=== PATIENT | male | born 1945 | race Caucasian/White ===

== ENCOUNTER → 2016-06-05 | Outpatient (CLI) | payer MEDICARE ==
--- NOTE | 2016-06-05 11:56 | US ---
EXAMINATION TYPE: US kidneys/renal and bladder DATE OF EXAM: 06/05/2016 10:51 AM COMPARISON: CT abdomen September 02, 2013 CLINICAL HISTORY: C67.2 Bilateral bladder ca per order. EXAM MEASUREMENTS: Right Kidney: 9.3 x 4.5 x 5.0 cm Left Kidney: 10.2 x 4.9 x 4.8 cm Right Kidney: somewhat limited visualization due to excessive overlying peristalsing bowel, portions visualized wnl Left Kidney: irregular shaped anechoic structure with anterior hyperechoic foci Bladder: wnl Bilateral Jets seen: Yes There is no evidence for hydronephrosis at this point in time. No nephrolithiasis is seen bilaterall y. In the left kidney central aspect there is a irregular hypoechoic 2.0 x 1.5 cm area with central h yperechoic focus this could reflect prominent central fat but new solid lesion needs to be excluded g iven patient history. The urinary bladder is anechoic. Bilateral ureteral jets are seen. IMPRESSION: Abnormal area centrally left kidney in which solid mass or neoplasm cannot be excluded. Further pattie p with contrast-enhanced multi phase renal protocol CT or MRI is advised to better evaluate and dari cterize.
== END | disposition home or self-care (01) ==
LOC: RADUSWWP 10:19
PROVIDERS: ATTEND Urology
DX: R93.422 Abnormal radiologic findings on diagnostic imaging of left kidney (principal); C67.2 Malignant neoplasm of lateral wall of bladder; G43.909 Migraine, unspecified, not intractable, without status migrainosus; J44.9 Chronic obstructive pulmonary disease, unspecified; K21.0 Gastro-esophageal reflux disease with esophagitis; J30.2 Other seasonal allergic rhinitis
CPT/HCPCS: 36415; 76770; 84153

== ENCOUNTER 2016-07-06 17:25 | Inpatient (IN) | payer MEDICAID, MEDICARE ==
[2016-07-06] MEDS ORDERED: RX INFO: IV CONTRAST WAS GIVEN 1 EACH MISC MISCELLANE PRN (18:13)
[2016-07-06] MEDS ORDERED: MORPHINE SULFATE 4 MG/ML SYRINGE IV STA (18:13)
[2016-07-06] MEDS ORDERED: PANTOPRAZOLE 40 MG/10 ML VIAL IVP STA (18:13)
[2016-07-06] MEDS ORDERED: ONDANSETRON 4 MG/2 ML VIAL IVP STA (18:13)
[2016-07-06] MEDS ORDERED: SODIUM CHLORIDE 0.9% 1,000 ML IV STA ×2 (18:13)
[2016-07-06 18:37] LABS: Basophils # (A) 0.1 k/uL (0-0.2); Basophils % (A) 1 %; CH 33.9; CHCM 34.6; Eosinophils # (A) 0.1 k/uL (0-0.7); Eosinophils % (A) 1 %; HCT 51.6 % (39.0-53.0); HDW 2.49; HGB 17.5 gm/dL (13.0-17.5); Luc # (Auto) 0.26; Luc % (Auto) 3; Lymphocytes # (A) 0.8 k/uL (1.0-4.8); Lymphocytes % (A) 9 %; MCH 33.5 pg (25.0-35.0); MCHC 33.9 g/dL (31.0-37.0); MCV 98.6 fL (80.0-100.0); Mean Platelet Volume 7.2; Monocytes # (A) 0.8 k/uL (0-1.0); Monocytes % (A) 9 %; Neutrophils # (A) 6.7 k/uL (1.3-7.7); Neutrophils % (A) 77 %; RBC 5.24 m/uL (4.30-5.90); RDW 14.3 % (11.5-15.5); WBC 8.8 k/uL (3.8-10.6)
--- NOTE | 2016-07-06 18:37 | ED ---
General Adult HPI - General Source: patient, RN notes reviewed, old records reviewed Mode of arrival: wheelchair Limitations: no limitations <Yogesh Pereira - Last Filed: 07/06/16 18:35> <Arnold Reeves - Last Filed: 07/06/16 21:48> - General Chief complaint: Abdominal Pain Stated complaint: VOMITING BLOOD Time Seen by Provider: 07/06/16 18:12 - History of Present Illness Initial comments: This is a 71-year-old male the ER for evaluation. Patient is safe for evaluation of abdominal pain. Severe diffuse abdominal pain. Vomiting, patient states he did vomit blood. Denies similar history of same issue. Not on blood thinners. Patient has history of CVA and history of heart disease, has had an appendectomy. Patient denies any recent fevers, no diarrhea, no blood in stool (Yogesh Pereira) - Related Data Home Medications Medication Instructions Recorded Confirmed Fluticasone/Salmeterol [Advair 1 puff INHALATION RT-DAILY 07/10/13 07/06/16 250-50 Diskus] fentaNYL 50MCG/HR PATCH [Duragesic 50 mcg TRANSDERM Q48H 05/25/14 07/06/16 50MCG/HR] Albuterol Nebulized [Ventolin 2.5 mg INHALATION RT-Q4H PRN 09/15/15 07/06/16 Nebulized] Sucralfate [Carafate] 1 gm PO AC-BID 09/15/15 07/06/16 Famotidine [Pepcid] 20 mg PO DAILY PRN 07/06/16 07/06/16 Ondansetron [Zofran ODT] 8 mg PO Q8HR PRN 07/06/16 07/06/16 Allergies Allergy/AdvReac Type Severity Reaction Status Date / Time chocolate flavor Allergy Unknown Verified 07/06/16 18:51 Iodinated Contrast Media - Allergy Anaphylaxis Verified 07/06/16 18:51 Oral and [Iodinated Contrast Media - IV Dye] iodine Allergy Anaphylaxis Verified 07/06/16 18:51 Penicillins Allergy Anaphylaxis Verified 07/06/16 18:51 Sulfa (Sulfonamide Allergy Anaphylaxis Verified 07/06/16 18:51 Antibiotics) banana AdvReac HEADACHE Verified 07/06/16 18:51 tree nut [Nut] AdvReac HEADACHE Verified 07/06/16 18:51 yellow dye AdvReac HEADACHE Verified 07/06/16 18:51 Review of Systems ROS Other: All systems not noted in ROS Statement are negative. <Yogesh Pereira - Last Filed: 07/06/16 18:35> ROS Other: All systems not noted in ROS Statement are negative. <Arnold Reeves - Last Filed: 07/06/16 21:48> ROS Statement: Those systems with pertinent positive or pertinent negative responses have been documented in the HPI. Past Medical History Past Medical History: Cancer, COPD, GERD/Reflux, GI Bleed, Myocardial Infarction ([place]) Additional Past Medical History / Comment(s): Recent 08/03/15 EGD with bx and colonoscopy with bx for upper abdominal pain and hematemesis,/vomiting, frequent severe migraines, bladder CA with BCG treatment, testicular ca with orchiectomy and radiation, chronic back pain, hiatel hernia, gastritis, bells palsy. Last Myocardial Infarction Date:: 05/25/14 History of Any Multi-Drug Resistant Organisms: None Reported Past Surgical History: Adenoidectomy, Appendectomy, Heart Catheterization, Hernia Repair, Orthopedic Surgery, Tonsillectomy Additional Past Surgical History / Comment(s): 08/03/15 EGD with negative BX and colonoscopy with polypectomy and BX-neg, 05/27/14 normal cardiac cath, several back sx including laminectomy, spinous process removed T11 and T12/cage and arturo , bilateral arthroscopic knee surgeries with one done twice, left/Right thumb surgeries with one having titanium joint, L rotator cuff repair, several nasal polypectomies, RFA back, R/L inguinal hernia reairs. Past Anesthesia/Blood Transfusion Reactions: No Reported Reaction Past Psychological History: No Psychological Hx Reported Additional Psychological History / Comment(s): Pt resides with his spouse. He uses a back brace occasionally. He drives. Smoking Status: Former smoker Past Alcohol Use History: None Reported Additional Past Alcohol Use History / Comment(s): Pt started smoking in 1978 and quit in 2008. He uses an E-cigarette daily. Past Drug Use History: None Reported - Past Family History Father Family Medical History: Cancer Additional Family Medical History / Comment(s): Father of stomach ca at the age of 65 yrs. Mother Family Medical History: No Reported History Additional Family Medical History / Comment(s): Mother of "old age". She was 83 yrs old Brother(s) Family Medical History: Diabetes Mellitus Sister(s) Family Medical History: Diabetes Mellitus Additional Family Medical History / Comment(s): breast ca <Yogesh Pereira - Last Filed: 07/06/16 18:35> General Exam Limitations: no limitations General appearance: alert, in no apparent distress Head exam: Present: atraumatic, normocephalic, normal inspection Eye exam: Present: normal appearance, PERRL, EOMI. Absent: scleral icterus, conjunctival injection, periorbital swelling ENT exam: Present: normal exam, mucous membranes moist Neck exam: Present: normal inspection. Absent: tenderness, meningismus, lymphadenopathy Respiratory exam: Present: normal lung sounds bilaterally. Absent: respiratory distress, wheezes, rales, rhonchi, stridor Cardiovascular Exam: Present: regular rate, normal rhythm, normal heart sounds. Absent: systolic murmur, diastolic murmur, rubs, gallop, clicks GI/Abdominal exam: Present: soft, tenderness, guarding (Voluntary), normal bowel sounds. Absent: distended, rebound, rigid Extremities exam: Present: normal inspection, full ROM, normal capillary refill. Absent: tenderness, pedal edema, joint swelling, calf tenderness Back exam: Present: normal inspection Neurological exam: Present: alert, oriented X3, CN II-XII intact Psychiatric exam: Present: normal affect, normal mood Skin exam: Present: warm, dry, intact, normal color. Absent: rash <Yogesh Pereira - Last Filed: 07/06/16 18:35> Medical Decision Making <Yogesh Pereira - Last Filed: 07/06/16 18:35> - Lab Data Result diagrams: 07/06/16 18:20 07/06/16 18:20 - Radiology Data Radiology results: report reviewed (Computed tomography scan of the abdomen pelvis shows no acute abnormality.) <Arnold Reeves - Last Filed: 07/06/16 21:48> - Medical Decision Making Patient reevaluated and resting comfortably in bed. Patient and family were updated on results and plan. Case was discussed with Dr. Rangel, who will admit for . Patient has previously seen Dr. Benavides. (Arnold Reeves) - Lab Data Lab Results 07/06/16 07/06/16 07/06/16 Range/Units 18:20 18:20 18:20 WBC 8.8 (3.8-10.6) k/uL RBC 5.24 (4.30-5.90) m/uL Hgb 17.5 (13.0-17.5) gm/dL Hct 51.6 (39.0-53.0) % MCV 98.6 (80.0-100.0) fL MCH 33.5 (25.0-35.0) pg MCHC 33.9 (31.0-37.0) g/dL RDW 14.3 (11.5-15.5) % Plt Count 224 (150-450) k/uL Neutrophils % 77 % Lymphocytes % 9 % Monocytes % 9 % Eosinophils % 1 % Basophils % 1 % Neutrophils # 6.7 (1.3-7.7) k/uL Lymphocytes # 0.8 L (1.0-4.8) k/uL Monocytes # 0.8 (0-1.0) k/uL Eosinophils # 0.1 (0-0.7) k/uL Basophils # 0.1 (0-0.2) k/uL PT (9.0-12.0) sec INR (<1.1) APTT (22.0-30.0) sec Sodium 146 H (137-145) mmol/L Potassium 4.2 (3.5-5.1) mmol/L Chloride 101 (98-107) mmol/L Carbon Dioxide 31 H (22-30) mmol/L Anion Gap 14 mmol/L BUN 27 H (9-20) mg/dL Creatinine 0.80 (0.66-1.25) mg/dL Est GFR (MDRD) Af Amer >60 (>60 ml/min/1.73 sqM) Est GFR (MDRD) Non-Af >60 (>60 ml/min/1.73 sqM) Glucose 103 H (74-99) mg/dL Plasma Lactic Acid Finesse (0.7-2.0) mmol/L Calcium 10.4 H (8.4-10.2) mg/dL Total Bilirubin 1.1 (0.2-1.3) mg/dL AST 36 (17-59) U/L ALT 48 (21-72) U/L Alkaline Phosphatase 98 (38-126) U/L Total Creatine Kinase 109 (55-170) U/L CK-MB (CK-2) 2.0 (0.0-2.4) ng/mL CK-MB (CK-2) Rel Index 1.8 Troponin I <0.012 (0.000-0.034) ng/mL Total Protein 8.2 (6.3-8.2) g/dL Albumin 4.7 (3.5-5.0) g/dL Amylase 179 H (30-110) U/L Lipase 29 (23-300) U/L 07/06/16 07/06/16 Range/Units 18:20 18:40 WBC (3.8-10.6) k/uL RBC (4.30-5.90) m/uL Hgb (13.0-17.5) gm/dL Hct (39.0-53.0) % MCV (80.0-100.0) fL MCH (25.0-35.0) pg MCHC (31.0-37.0) g/dL RDW (11.5-15.5) % Plt Count (150-450) k/uL Neutrophils % % Lymphocytes % % Monocytes % % Eosinophils % % Basophils % % Neutrophils # (1.3-7.7) k/uL Lymphocytes # (1.0-4.8) k/uL Monocytes # (0-1.0) k/uL Eosinophils # (0-0.7) k/uL Basophils # (0-0.2) k/uL PT 9.8 (9.0-12.0) sec INR 1.0 (<1.1) APTT 22.4 (22.0-30.0) sec Sodium (137-145) mmol/L Potassium (3.5-5.1) mmol/L Chloride (98-107) mmol/L Carbon Dioxide (22-30) mmol/L Anion Gap mmol/L BUN (9-20) mg/dL Creatinine (0.66-1.25) mg/dL Est GFR (MDRD) Af Amer (>60 ml/min/1.73 sqM) Est GFR (MDRD) Non-Af (>60 ml/min/1.73 sqM) Glucose (74-99) mg/dL Plasma Lactic Acid Finesse 1.3 (0.7-2.0) mmol/L Calcium (8.4-10.2) mg/dL Total Bilirubin (0.2-1.3) mg/dL AST (17-59) U/L ALT (21-72) U/L Alkaline Phosphatase (38-126) U/L Total Creatine Kinase (55-170) U/L CK-MB (CK-2) (0.0-2.4) ng/mL CK-MB (CK-2) Rel Index Troponin I (0.000-0.034) ng/mL Total Protein (6.3-8.2) g/dL Albumin (3.5-5.0) g/dL Amylase (30-110) U/L Lipase (23-300) U/L Disposition <Yogesh Pereira - Last Filed: 07/06/16 18:35> <Arnold Reeves - Last Filed: 07/06/16 21:48> Clinical Impression: Upper GI hemorrhage Disposition: ADMITTED IP TO THIS HOSP
[2016-07-06 18:44] LABS: Partial Thromboplastin Time 22.4 sec (22.0-30.0); Prothrombin Time 9.8 sec (9.0-12.0)
[2016-07-06 18:54] LABS: ALT 48 U/L (21-72); AST 36 U/L (17-59); Alkaline Phosphatase 98 U/L (38-126); Amylase 179 U/L (30-110); Anion Gap 14 mmol/L; Blood Urea Nitrogen 27 mg/dL (9-20); Calcium 10.4 mg/dL (8.4-10.2); Carbon Dioxide 31 mmol/L (22-30); Chloride 101 mmol/L (98-107); Glucose 103 mg/dL (74-99); Non-African American GFR(MDRD) >60 (>60 ml/min/1.73 sqM); Potassium 4.2 mmol/L (3.5-5.1); Sodium 146 mmol/L (137-145); Total Bilirubin 1.1 mg/dL (0.2-1.3); Total Protein 8.2 g/dL (6.3-8.2)
[2016-07-06 18:58] LABS: Creatine Kinase 109 U/L (55-170)
[2016-07-06 19:10] LABS: Troponin I <0.012 ng/mL (0.000-0.034)
[2016-07-06] MEDS ORDERED: diphenhydrAMINE 50 MG/ML 1 ML VIAL IVP STA (19:25)
[2016-07-06] MEDS ORDERED: methylPREDNISolone SOD SUCCI 125 MG/2 ML VIAL IVP STA (19:25)
[2016-07-06] MEDS ORDERED: FAMOTIDINE 20 MG/2 ML VIAL IVP STA (19:25)
--- NOTE | 2016-07-06 20:24 | CT ---
EXAMINATION TYPE: CT abdomen pelvis w con DATE OF EXAM: 07/06/2016 8:11 PM COMPARISON: 09/02/2013 HISTORY: Abdominal pain with vomiting today. Blood in emesis. CT DLP: 428.90 mGycm Automated exposure control for dose reduction was used. TECHNIQUE: Helical acquisition of images was performed from the lung bases through the pelvis. CONTRAST: Performed without Oral Contrast and with IV Contrast, patient injected with 100 mL of Omnipaque 300. FINDINGS: There is interposition of the hepatic flexure of the colon. Heart size is normal. I see no sign of pl eural effusion. Liver shows no focal defect. Bile ducts are not dilated. There is no pancreatic mass. Spleen appears normal. There is no adrenal mass. Kidneys show satisfactory contrast opacification. There is no hydronephrosi s. There is no retroperitoneal adenopathy. Abdominal aorta is atheromatous. There is no ascites. Ther e is posterior lumbar spine fusion surgery noted. There are sigmoid diverticula without evidence of d iverticulitis. Bladder distends smoothly. There is no sign of a pelvic mass. Appendix is not seen. Th ere is no sign of appendicitis. I see no focal bone destruction. IMPRESSION: THERE IS MILD COLONIC DIVERTICULOSIS WITHOUT SIGN OF DIVERTICULITIS. NO SIGN OF ACUTE ABDOMEN AND PEL VIS. NO ADVERSE CHANGE COMPARED TO OLD EXAM. SECOND-DEGREE L5-S1 SPONDYLOLISTHESIS IS NOTED.
[2016-07-06] MEDS ORDERED: NALOXONE 0.4 MG/ML 1 ML VIAL IV PRN (21:48)
[2016-07-06] MEDS ORDERED: ONDANSETRON 4 MG/2 ML VIAL IVP PRN (21:48)
[2016-07-06] MEDS: SODIUM CHLORIDE 0.9% 1,000 ML IV SCH (23:23)
[2016-07-06] MEDS ORDERED: ALBUTEROL NEBULIZED 2.5 MG/3 ML INHALATION PRN (23:51)
[2016-07-06] MEDS ORDERED: MORPHINE SULFATE 4 MG/ML SYRINGE IVP PRN (23:54)
[2016-07-07] MEDS: diphenhydrAMINE 50 MG/ML 1 ML VIAL IVP PRN ×2 (01:00→08:40)
[2016-07-07] MEDS: MORPHINE SULFATE 4 MG/ML SYRINGE IVP PRN ×3 (01:02→20:35)
[2016-07-07] MEDS: SODIUM CHLORIDE 0.9% 1,000 ML IV SCH ×2 (08:34→14:33)
[2016-07-07] MEDS: SUCRALFATE 1 GM TAB PO SCH ×2 (08:35→16:04)
[2016-07-07 09:21] LABS: Basophils % (A) 0 %; CH 33.5; CHCM 32.8; Eosinophils % (A) 0 %; HCT 43.9 % (39.0-53.0); Luc # (Auto) 0.02; Luc % (Auto) 1; Lymphocytes # (A) 0.4 k/uL (1.0-4.8); Lymphocytes % (A) 8 %; MCH 33.3 pg (25.0-35.0); MCHC 32.3 g/dL (31.0-37.0); MCV 102.9 fL (80.0-100.0); Macrocytosis Slight; Mean Platelet Volume 6.8; Monocytes # (A) 0.1 k/uL (0-1.0); Monocytes % (A) 3 %; Neutrophils # (A) 4.5 k/uL (1.3-7.7); Neutrophils % (A) 89 %; RBC 4.27 m/uL (4.30-5.90); RDW 14.6 % (11.5-15.5); WBC (Perox) 5.16
[2016-07-07 09:23] LABS: HGB 14.2 gm/dL (13.0-17.5)
--- NOTE | 2016-07-07 11:30 | P.GSCN ---
History of Present Illness Consult date: 07/07/16 Reason for Consult: GI Bleed. Requesting physician: Sushant Rangel History of present illness: The patient is a 71-year-old white male who was admitted with abdominal pain and vomiting. Patient states he developed some upper abdominal pain yesterday with the rest multiple episodes of vomiting the last few temperature blood in it. He presented to the emergency room. He was hospitalized. Hemoglobin was good on admission at 17.4. After his hospitalization the vomiting so subsided with the treatment. He states his abdominal pain is now resolved. No further vomiting since his hospitalization. No melena. Amylase was mildly elevated to 179. A Kum[place]t similar episode in March. He underwent EGD and colonoscopy by Dr. Benavides. Had evidence of some gastritis and a rectal polyp that was benign. Has been on treatment for this as an outpatient. Past history well documented. Has a history of poor bladder testicular CA chronic back pain on fentanyl patch appendectomy bilateral hernia repairs in the groins. History of migraine headaches COPD ,GERD, [place] multiple orthopedic procedures. ALLERGIES noted multiple. Social history ethanol abuse. Former smoker. Now uses a cigarettes.. He is . Family history from the stomach CVA in his father. Diabetes mellitus in the family. Systems review as above. On examination the patient is awake alert in no distress resting comfortably. He states his hungry. Nominal pain is resolved. Vitals are normal temperature is normal. Color is satisfactory hydration is good. Heart and lungs are clear. Him and is quite soft the nontender no masses or organomegaly or hernias noted. Good bowel sounds. Chest grossly intact no focal deficits. CT of the abdomen and pelvis shows some diverticulosis otherwise unremarkable with no hernia no acute abnormalities. Laboratory studies as above. Impression resolved the vomiting with the some hematemesis be secondary to gastritis as before. Mild pancreatitis. Multiple medical issues as above. Recommendation May start him on a liquid diet. We will continue to monitor him monitoring him. We will check his hemoglobin as well as his amylase and progressively advance his diet. Past Medical History Past Medical History: Cancer, COPD, GERD/Reflux, GI Bleed, Myocardial Infarction ([place]) Additional Past Medical History / Comment(s): Recent 08/03/15 EGD with bx and colonoscopy with bx for upper abdominal pain and hematemesis,/vomiting, frequent severe migraines, bladder CA with BCG treatment, testicular ca with orchiectomy and radiation, chronic back pain, hiatel hernia, gastritis, bells palsy. Last Myocardial Infarction Date:: 05/25/14 History of Any Multi-Drug Resistant Organisms: None Reported Past Surgical History: Adenoidectomy, Appendectomy, Heart Catheterization, Hernia Repair, Orthopedic Surgery, Tonsillectomy Additional Past Surgical History / Comment(s): 08/03/15 EGD with negative BX and colonoscopy with polypectomy and BX-neg, 05/27/14 normal cardiac cath, several back sx including laminectomy, spinous process removed T11 and T12/cage and arturo , bilateral arthroscopic knee surgeries with one done twice, left/Right thumb surgeries with one having titanium joint, L rotator cuff repair, several nasal polypectomies, RFA back, R/L inguinal hernia reairs. Past Anesthesia/Blood Transfusion Reactions: No Reported Reaction Past Psychological History: No Psychological Hx Reported Additional Psychological History / Comment(s): Pt resides with his spouse. He uses a back brace occasionally. He drives. Smoking Status: Former smoker Past Alcohol Use History: None Reported Additional Past Alcohol Use History / Comment(s): Pt started smoking in 1978 and quit in 2008. He uses an E-cigarette daily. Past Drug Use History: None Reported - Past Family History Father Family Medical History: Cancer Additional Family Medical History / Comment(s): Father of stomach ca at the age of 65 yrs. Mother Family Medical History: No Reported History Additional Family Medical History / Comment(s): Mother of "old age". She was 83 yrs old Brother(s) Family Medical History: Diabetes Mellitus Sister(s) Family Medical History: Diabetes Mellitus Additional Family Medical History / Comment(s): breast ca Medications and Allergies Home Medications Medication Instructions Recorded Confirmed Type Fluticasone/Salmeterol [Advair 1 puff INHALATION RT-DAILY 07/10/13 07/06/16 History 250-50 Diskus] fentaNYL 50MCG/HR PATCH [Duragesic 50 mcg TRANSDERM Q48H 05/25/14 07/06/16 History 50MCG/HR] Albuterol Nebulized [Ventolin 2.5 mg INHALATION RT-Q4H PRN 09/15/15 07/06/16 History Nebulized] Sucralfate [Carafate] 1 gm PO AC-BID 09/15/15 07/06/16 History Famotidine [Pepcid] 20 mg PO DAILY PRN 07/06/16 07/06/16 History Ondansetron [Zofran ODT] 8 mg PO Q8HR PRN 07/06/16 07/06/16 History Allergies Allergy/AdvReac Type Severity Reaction Status Date / Time chocolate flavor Allergy Unknown Verified 07/06/16 18:51 Iodinated Contrast Media - Allergy Anaphylaxis Verified 07/06/16 18:51 Oral and [Iodinated Contrast Media - IV Dye] iodine Allergy Anaphylaxis Verified 07/06/16 18:51 Penicillins Allergy Anaphylaxis Verified 07/06/16 18:51 Sulfa (Sulfonamide Allergy Anaphylaxis Verified 07/06/16 18:51 Antibiotics) banana AdvReac HEADACHE Verified 07/06/16 18:51 tree nut [Nut] AdvReac HEADACHE Verified 07/06/16 18:51 yellow dye AdvReac HEADACHE Verified 07/06/16 18:51 Surgical - Exam Vital Signs Temp Pulse Resp BP Pulse Ox 96.4 F L 87 16 108/55 93 L 07/06/16 18:03 07/06/16 18:03 07/06/16 18:03 07/06/16 18:03 07/06/16 18:03 Results - Labs 07/07/16 08:58 07/06/16 18:20 Abnormal Lab Results - Last 24 Hours (Table) 07/07/16 Range/Units 08:58 RBC 4.27 L (4.30-5.90) m/uL MCV 102.9 H (80.0-100.0) fL Lymphocytes # 0.4 L (1.0-4.8) k/uL
[2016-07-07] MEDS: PANTOPRAZOLE 40 MG/10 ML VIAL IV SCH (12:44)
[2016-07-07] MEDS ORDERED: HYDROmorphone 1 MG/ML 1 ML SYRINGE IVP PRN (13:00)
[2016-07-07] MEDS ORDERED: Acetaminophen-Codeine 300-30mg TAB PO PRN (13:00)
[2016-07-07 13:10] LABS: Amylase 71 U/L (30-110)
[2016-07-07] MEDS: KETOROLAC 30 MG/ML 1 ML VIAL IVP PRN (14:50)
[2016-07-07] MEDS: METOCLOPRAMIDE 5 MG/ML 2 ML VIAL IVP SCH (14:50)
[2016-07-07 14:52] VITALS: BMI 18.6
[2016-07-07 16:57] LABS: Glucose,Whole Blood 118 mg/dL (75-99)
[2016-07-07] MEDS: INSULIN LISPRO (humaLOG) 300 UNIT/3 ML VIAL SQ SCH (17:24)
[2016-07-07] MEDS: Acetaminophen-Codeine 300-30mg TAB PO PRN (17:27)
[2016-07-07] MEDS ORDERED: METOCLOPRAMIDE 5 MG/ML 2 ML VIAL ONE (23:00)
[2016-07-07] MEDS ORDERED: KETOROLAC 30 MG/ML 1 ML VIAL ONE (23:00)
[2016-07-07 23:06] LABS: Glucose,Whole Blood 184 mg/dL (75-99)
[2016-07-08] MEDS: MORPHINE SULFATE 4 MG/ML SYRINGE IVP PRN (05:50)
[2016-07-08] MEDS: METOCLOPRAMIDE 5 MG/ML 2 ML VIAL IVP SCH ×2 (07:34→08:10)
[2016-07-08] MEDS: INSULIN LISPRO (humaLOG) 300 UNIT/3 ML VIAL SQ SCH ×3 (07:34→12:53)
[2016-07-08] MEDS: SODIUM CHLORIDE 0.9% 1,000 ML IV SCH (07:34)
[2016-07-08 07:36] LABS: Glucose,Whole Blood 132 mg/dL (75-99)
[2016-07-08] MEDS: KETOROLAC 30 MG/ML 1 ML VIAL IVP PRN (08:09)
[2016-07-08] MEDS: SUCRALFATE 1 GM TAB PO SCH (08:10)
[2016-07-08] MEDS: PANTOPRAZOLE 40 MG/10 ML VIAL IV SCH (08:10)
[2016-07-08 08:14] VITALS: BP 126/75; PULSE 58; RESP 18; TEMP 97.6
[2016-07-08 11:28] LABS: Hemoglobin A1C 5.6 % (4.2-6.1)
[2016-07-08] MEDS: Acetaminophen-Codeine 300-30mg TAB PO PRN (11:41)
[2016-07-08 12:17] LABS: Glucose,Whole Blood 136 mg/dL (75-99)
--- NOTE | 2016-07-08 12:31 | P.PN ---
Progress Note - Text The patient remains fairly stable. He feels well. He is anxious to go home. His abdominal pain and heme the vomiting has resolved. Migraine headaches have improve Examination. he is afebrile. Vitals are stable. Color is good he is in no distress. Abdomen is very soft and benign and nontender with no masses or organomegaly. Hemoglobin is stable. Impression. Resolving the upper abdominal pain vomiting hematemesis with no evidence of any significant GI bleeding now. History of gastritis on Recent EGD. Recommendation patient can be discharge from a surgical standpoint. Continue antiulcer regimen.
--- NOTE | 2016-07-08 13:02 | P.CONS ---
History of Present Illness - Reason for Consult Consult date: 07/08/16 Intractable migraine - History of Present Illness This is 71-year-old male being evaluated by the neurology service for severe migraine. He came to the [facility] emergency room with complaints of severe abdominal pain and vomiting. He has been seen by gastroenterology and diagnosed with an exacerbation of chronic gastritis he has been treated and is feeling better. He is known to us with a history of chronic migraines for which we treat him with third occipital nerve/upper cervical radiofrequency ablation. This procedure last about a year, and he is due to repeat the procedure but has not followed up in our office. Last night we did order Toradol Reglan and morphine via IV, and his headache has completely resolved. At the time my exam is resting comfortably in bed in no acute distress. Review of Systems All systems: negative Constitutional: Reports as per HPI Past Medical History Past Medical History: Cancer, COPD, GERD/Reflux, GI Bleed, Myocardial Infarction ([place]) Additional Past Medical History / Comment(s): Recent 08/03/15 EGD with bx and colonoscopy with bx for upper abdominal pain and hematemesis,/vomiting, frequent severe migraines, bladder CA with BCG treatment, testicular ca with orchiectomy and radiation, chronic back pain, hiatel hernia, gastritis, bells palsy. Last Myocardial Infarction Date:: 05/25/14 History of Any Multi-Drug Resistant Organisms: None Reported Past Surgical History: Adenoidectomy, Appendectomy, Heart Catheterization, Hernia Repair, Orthopedic Surgery, Tonsillectomy Additional Past Surgical History / Comment(s): 08/03/15 EGD with negative BX and colonoscopy with polypectomy and BX-neg, 05/27/14 normal cardiac cath, several back sx including laminectomy, spinous process removed T11 and T12/cage and arturo , bilateral arthroscopic knee surgeries with one done twice, left/Right thumb surgeries with one having titanium joint, L rotator cuff repair, several nasal polypectomies, RFA back, R/L inguinal hernia reairs. Past Anesthesia/Blood Transfusion Reactions: No Reported Reaction Past Psychological History: No Psychological Hx Reported Additional Psychological History / Comment(s): Pt resides with his spouse. He uses a back brace occasionally. He drives. Smoking Status: Former smoker Past Alcohol Use History: None Reported Additional Past Alcohol Use History / Comment(s): Pt started smoking in 1978 and quit in 2008. He uses an E-cigarette daily. Past Drug Use History: None Reported - Past Family History Father Family Medical History: Cancer Additional Family Medical History / Comment(s): Father of stomach ca at the age of 65 yrs. Mother Family Medical History: No Reported History Additional Family Medical History / Comment(s): Mother of "old age". She was 83 yrs old Brother(s) Family Medical History: Diabetes Mellitus Sister(s) Family Medical History: Diabetes Mellitus Additional Family Medical History / Comment(s): breast ca Medications and Allergies Home Medications Medication Instructions Recorded Confirmed Type Fluticasone/Salmeterol [Advair 1 puff INHALATION RT-DAILY 07/10/13 07/06/16 History 250-50 Diskus] fentaNYL 50MCG/HR PATCH [Duragesic 50 mcg TRANSDERM Q48H 05/25/14 07/06/16 History 50MCG/HR] Albuterol Nebulized [Ventolin 2.5 mg INHALATION RT-Q4H PRN 09/15/15 07/06/16 History Nebulized] Sucralfate [Carafate] 1 gm PO AC-BID 09/15/15 07/06/16 History Ondansetron [Zofran ODT] 8 mg PO Q8HR PRN 07/06/16 07/06/16 History Allergies Allergy/AdvReac Type Severity Reaction Status Date / Time chocolate flavor Allergy Unknown Verified 07/06/16 18:51 Iodinated Contrast Media - Allergy Anaphylaxis Verified 07/06/16 18:51 Oral and [Iodinated Contrast Media - IV Dye] iodine Allergy Anaphylaxis Verified 07/06/16 18:51 Penicillins Allergy Anaphylaxis Verified 07/06/16 18:51 Sulfa (Sulfonamide Allergy Anaphylaxis Verified 07/06/16 18:51 Antibiotics) banana AdvReac HEADACHE Verified 07/06/16 18:51 tree nut [Nut] AdvReac HEADACHE Verified 07/06/16 18:51 yellow dye AdvReac HEADACHE Verified 07/06/16 18:51 Physical Exam Vitals: Vital Signs Temp Pulse Resp BP Pulse Ox 07/08/16 07:00 97.6 F 58 L 18 126/75 96 07/07/16 23:00 97.8 F 73 16 114/65 94 L 07/07/16 15:00 97.9 F 75 19 135/74 96 Intake and Output 07/07/16 07/08/16 07/08/16 22:59 06:59 14:59 Other: # Voids 1 1 2 - Constitutional General appearance: average body habitus, cooperative, no acute distress - EENT Eyes: no abnormal pupil, EOMI, PERRLA, no ptosis ENT: hearing grossly normal - Neck Neck: normal ROM, no rigidity - Respiratory Respiratory: negative: prolonged expiration, prolonged inspiration - Cardiovascular Rhythm: regular - Gastrointestinal General gastrointestinal: no distended, tenderness - Neurologic Patient is alert awake and oriented 3. Speech-language are normal. There is no facial asymmetry. Normocephalic atraumatic with mild bilateral occipital tenderness. There are no tremors or seizure-like activity seen. There is no lateralizing weakness. Cranial nerves II through XII including intact globally. Results CBC & Chem 7: 07/07/16 08:58 07/06/16 18:20 Labs: Abnormal Lab Results - Last 24 Hours (Table) 07/07/16 07/07/16 07/07/16 Range/Units 08:58 16:55 22:18 POC Glucose (mg/dL) 118 H 184 H (75-99) mg/dL Lipase 17 L (23-300) U/L 07/08/16 07/08/16 Range/Units 07:35 12:15 POC Glucose (mg/dL) 132 H 136 H (75-99) mg/dL Lipase (23-300) U/L Assessment and Plan (1) Headache, chronic migraine without aura Status: Chronic (2) Abdominal pain Status: Acute (3) Headache Status: Acute (4) Nausea & vomiting Status: Resolved (5) Occipital neuritis Status: Chronic Plan: After administration of the above IV medications his migraine did resolve. Continue the rest of your workup for his gastrointestinal problems. We will follow him up in the office to schedule a repeat radiofrequency ablation. Otherwise he will continue home medications to include Imitrex when necessary. I have reviewed the history and physical on the above patient. I have reviewed the above note, and agree.
--- NOTE | 2016-07-08 13:06 | HP ---
DATE OF ADMISSION: 07/07/2016 I am covering for . CHIEF COMPLAINT: Incessant vomiting and upper GI bleeding as well as headache. HISTORY OF PRESENT ILLNESS: This 71-year-old gentleman with a past medical history of multiple medical problems including COPD, history of GERD, history of GI bleed, history of myocardial infarction, history of cardiac catheterization, history of degenerative joint disease being followed by in the outpatient setting apparently had multiple episodes of vomiting yesterday. The patient initially had bilious vomiting. Subsequently the patient also had increased abdominal pain and multiple episodes of bloody vomiting, also. Patient came to [facility]. Patient complaining of severe headache, also currently. Multiple medications have been adjusted. Hemoglobin 7.5, dropped to 14.2. At this time sodium 146. On admission, amylase 117, lipase was 70. There is no history of any fever, rigors, chills. No history of headache, loss of consciousness, seizures. PAST MEDICAL HISTORY: History of COPD, history of GERD, GI bleed, history of myocardial infarction, history of DJD, history of cardiac catheterization. Medications prior to admission include: 1. Zofran 8 mg q.8 p.r.n. 2. Advair 250/50, 1 puff daily. 3. Pepcid 20 mg daily p.r.n. 4. Ventolin 2.5 q.4 p.r.n. 5. Duragesic patch 50 mcg q.72h. 6. Carafate 1 g a.c. b.i.d. ALLERGIES ARE CHOCOLATE FLAVOR, IODINATED CONTRAST DYES, PENICILLIN, SULFA, BANANA, TREE NUT, YELLOW DYE. FAMILY HISTORY: History of cancer in the family. SOCIAL HISTORY: Brief history of smoking. No history of alcohol intake. REVIEW OF SYSTEMS: ENT: No diminished hearing. No diminished vision. CARDIOVASCULAR: No angina, palpitations. RESPIRATORY: As mentioned earlier. GI: As mentioned earlier. : No dysuria. NERVOUS: As mentioned earlier. ALLERGY/IMMUNOLOGY: No asthma or hay fever. MUSCULOSKELETAL: As mentioned earlier. HEMATOLOGY/ONCOLOGY: No history of anemia. ENDOCRINE: No history of diabetes, hypothyroidism. CONSTITUTIONAL: As mentioned earlier. DERMATOLOGY: Negative. RHEUMATOLOGY: Negative. PSYCHIATRY: As mentioned earlier. On physical exam, the patient is alert and oriented x3. Pulse is 75, blood pressure 135/74, respirations 19, temperature 97.8, pulse ox 96% on 2L. HEENT: Conjunctivae normal. NECK: No jugular venous distension. CARDIOVASCULAR: S1 and S2 muffled. LUNGS: Breath sounds diminished in the bases. A few scattered rhonchi and crackles. ABDOMEN: Soft, nontender. No mass palpable. LEGS: No edema. No swelling. NERVOUS SYSTEM: Higher functions as mentioned. Moves all 4 limbs. No focal motor or sensory deficit. LYMPHATIC: No lymphadenopathy in the neck, axillae or groin. SKIN: No ulceration, rash or bleeding. LABS: WBC 8, hemoglobin 17.5 and 14.2, MCV 102. Sodium 146. ASSESSMENT: 1. 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 2. Drop in hemoglobin up to 14.2, 3 points. 3. Hyponatremia, possibly secondary to dehydration. 4. Increased BUN, possibly secondary to dehydration, present on admission. 5. Increased calcium possibly secondary to dehydration, present on admission. 6. Increased amylase, present admission. 7. Increased MCV. 8. Severe headache and migraine cephalgia. 9. History of chronic obstructive pulmonary disease. 10. Gastroesophageal reflux disease. 11. History of gastrointestinal bleed. 12. History of coronary artery disease. 13. 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 14. History of testicular cancer with orchiectomy, radiation. 15. History of degenerative joint disease, chronic back pain. 16. History of cardiac catheterization. 17. Remote history of nicotine dependence. 18. FULL CODE. RECOMMENDATIONS AND DISCUSSION: In this 71-year-old gentleman who presented with multiple complex medical issues, will monitor the patient closely. Continue the current medications. Continue symptomatic. Otherwise, I would recommend symptomatic treatment of the pain and I would also recommend resuming the home medications and neurology consultation and Protonix, Surgery consultation. Guarded prognosis. Further recommendations to follow. Will closely monitor.
--- NOTE | 2016-07-11 20:01 | DS ---
DATE OF ADMISSION: 07/06/2016 DATE OF DISCHARGE: 07/08/2016 FINAL DIAGNOSES: 1. 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 2. Drop in hemoglobin of 3 points to 14.2, stable. 3. Hyponatremia, possibly secondary to dehydration. 4. Increased BUN, possibly secondary to dehydration, present on admission. 5. Significant intractable headache, possibly migrainous episode, acute. 6. Increased calcium, possibly secondary to dehydration, present on admission, improved. 7. Increased amylase, present on admission, improved. 8. Increased mean corpuscular volume. 9. History of chronic obstructive pulmonary disease. 10. Gastroesophageal reflux disease. 11. History of gastrointestinal bleed. 12. History of coronary artery disease. 13. History of bladder cancer with BCG treatment. 14. History of testicular cancer with orchiectomy and radiation. 15. History of degenerative joint disease, chronic back pain. 16. History of cardiac catheterization. 17. Remote history of nicotine dependence. 18. FULL CODE. DISCHARGE DISPOSITION: The patient will be discharged in stable condition with guarded prognosis. Discharge cleared by Neurology. HISTORY OF PRESENT ILLNESS: This 71-year-old gentleman with a past medical history of multiple medical problems, being followed by in the outpatient setting, was admitted with incessant vomiting and hematemesis. 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 Dr. Alvarez saw the patient for Dr. Aleman. On exam, vitals are stable. CARDIOVASCULAR SYSTEM: S1, S2 muffled. ABDOMEN: Soft. NERVOUS SYSTEM: No focal deficit. Dr. Roach saw the patient for headache. Treatment was coordinated. DISCHARGE ADVICE AND MEDICATIONS: 1. Diet is cardiac. 2. Activity limited until followup. 3. Follow up with Dr. Aleman in 2 to 3 weeks. 4. Follow up with CBC, BMP. 5. Follow up with Dr. Roach in one week. 6. Continue to follow up. 7. Albuterol nebulizer 2.5 q.i.d. and p.r.n. 8. Advair 1 puff b.i.d. 9. Zofran 8 mg q.8 p.r.n. 10. Protonix 40 mg p.o. b.i.d. 11. Carafate 1 gram p.o. b.i.d. 12. Fentanyl patch 50 mcg q.72 hours. MTDD
== END 2016-07-08 14:17 | disposition home or self-care (01) | DRG 369 ==
LOC: EC 17:25 → 4MS4W 21:48
PROVIDERS: ADMIT Family Medicine; ATTEND Family Medicine
DX: K22.6 Gastro-esophageal laceration-hemorrhage syndrome (principal); E87.1 Hypo-osmolality and hyponatremia; J44.9 Chronic obstructive pulmonary disease, unspecified; E86.0 Dehydration; R71.0 Precipitous drop in hematocrit; K92.0 Hematemesis; K29.50 Unspecified chronic gastritis without bleeding; M54.81 Occipital neuralgia; G43.709 Chronic migraine without aura, not intractable, without status migrainosus; I25.10 Atherosclerotic heart disease of native coronary artery without angina pectoris; K21.9 Gastro-esophageal reflux disease without esophagitis; I25.2 Old myocardial infarction; K57.30 Diverticulosis of large intestine without perforation or abscess without bleeding; G89.29 Other chronic pain; R94.4 Abnormal results of kidney function studies; R74.8 Abnormal levels of other serum enzymes; M54.9 Dorsalgia, unspecified; F17.290 Nicotine dependence, other tobacco product, uncomplicated; M19.90 Unspecified osteoarthritis, unspecified site; Z79.891 Long term (current) use of opiate analgesic; Z85.51 Personal history of malignant neoplasm of bladder; Z88.0 Allergy status to penicillin; Z85.47 Personal history of malignant neoplasm of testis; Z98.1 Arthrodesis status; Z96.698 Presence of other orthopedic joint implants; Z86.69 Personal history of other diseases of the nervous system and sense organs; Z90.49 Acquired absence of other specified parts of digestive tract; Z90.79 Acquired absence of other genital organ(s); Z80.0 Family history of malignant neoplasm of digestive organs; Z83.3 Family history of diabetes mellitus; Z80.3 Family history of malignant neoplasm of breast; Z82.3 Family history of stroke; Z71.3 Dietary counseling and surveillance; Z92.3 Personal history of irradiation; Z87.19 Personal history of other diseases of the digestive system; Z86.73 Personal history of transient ischemic attack (TIA), and cerebral infarction without residual deficits; Z79.51 Long term (current) use of inhaled steroids; Z79.899 Other long term (current) drug therapy; Z91.041 Radiographic dye allergy status; Z91.018 Allergy to other foods; Z88.2 Allergy status to sulfonamides
CPT/HCPCS: 36415; 74177; 80053; 82150; 82550; 82553; 83036; 83605; 83690; 84484; 85025; 85610; 85730; 96361; 96374; 96375; 99285

== ENCOUNTER → 2016-10-13 | Outpatient (CLI) | payer MEDICAID, MEDICARE ==
[2016-10-13 10:12] LABS: Basophils % (A) 1 %; CH 32.8; CHCM 32.4; Eosinophils # (A) 0.1 k/uL (0-0.7); Eosinophils % (A) 2 %; HCT 44.7 % (39.0-53.0); HGB 14.7 gm/dL (13.0-17.5); Luc # (Auto) 0.24; Luc % (Auto) 4; Lymphocytes # (A) 1.3 k/uL (1.0-4.8); Lymphocytes % (A) 24 %; MCH 33.5 pg (25.0-35.0); MCHC 32.9 g/dL (31.0-37.0); MCV 101.8 fL (80.0-100.0); Macrocytosis Slight; Mean Platelet Volume 7.3; Monocytes # (A) 0.4 k/uL (0-1.0); Monocytes % (A) 7 %; Neutrophils # (A) 3.5 k/uL (1.3-7.7); Neutrophils % (A) 62 %; RBC 4.39 m/uL (4.30-5.90); RDW 14.5 % (11.5-15.5); WBC 5.6 k/uL (3.8-10.6); WBC (Perox) 5.94
[2016-10-13 11:06] LABS: Erythrocyte Sedimentation Rate 12 mm/hr (0-15)
[2016-10-13 13:51] LABS: ALT 38 U/L (21-72); AST 26 U/L (17-59); Alkaline Phosphatase 85 U/L (38-126); Anion Gap 9 mmol/L; Blood Urea Nitrogen 19 mg/dL (9-20); C Reactive Protein 7.7 mg/L (<10.0); Calcium 9.9 mg/dL (8.4-10.2); Carbon Dioxide 32 mmol/L (22-30); Chloride 100 mmol/L (98-107); Creatine Kinase 69 U/L (55-170); Glucose 94 mg/dL (74-99); Magnesium 1.8 mg/dL (1.6-2.3); Non-African American GFR(MDRD) >60 (>60 ml/min/1.73 sqM); Potassium 4.6 mmol/L (3.5-5.1); Sodium 141 mmol/L (137-145); Total Bilirubin 0.7 mg/dL (0.2-1.3); Total Protein 6.6 g/dL (6.3-8.2)
[2016-10-13 14:19] LABS: Hemoglobin A1C 5.6 % (4.2-6.1)
== END | disposition home or self-care (01) ==
LOC: LABWHC1 09:05
PROVIDERS: ATTEND Psychiatry & Neurology Neurology
DX: R53.83 Other fatigue (principal)
CPT/HCPCS: 36415; 80053; 82550; 82728; 83036; 83735; 84439; 84443; 84481; 85025; 85652; 86140

== ENCOUNTER → 2016-10-24 | Outpatient (CLI) | payer MEDICAID, MEDICARE ==
--- NOTE | 2016-10-24 09:17 | FL ---
EXAMINATION TYPE: FL barium swallow DATE OF EXAM: 10/24/2016 CLINICAL HISTORY: Dysphagia and globus sensation with solids. TECHNIQUE: A double contrast esophagram is performed utilizing air and barium. A total of 2 minutes and 23 seconds of fluoroscopic time was utilized during procedure. COMPARISON: None FINDINGS: The esophagus shows abnormal motility as tertiary contractions are seen in the gravity depe ndent position within the mid and distal esophagus utilizing thin barium. This became progressively w orse using thicker liquid and in the gravity independent portion of the examination. There is normal emptying into the stomach with no evidence of stricture. Small hiatal hernia is seen. No significant gastroesophageal reflux was seen during real time performance of this study while utilizing the Valsa lva maneuver. Nasopharyngeal reflux was noted in the gravity independent portion of the exam. Small posterior osteo phyte is seen at C5-C6 which mildly impresses upon the esophagus. Barium is noted to be external to t he patient on the lateral images anterior to the esophagus. Cracker coated with barium was then administered with severely delayed propulsion through the proxima l esophagus and stasis at the mid esophagus. Thin barium was utilized to propulse the cracker through the gastroesophageal junction. IMPRESSION: 1. Abnormal motility of the esophagus in the gravity dependent and independent portions of the exam. Severely delayed propulsion through the proximal esophagus and stasis at the mid esophagus with solid consistency. No evidence of stricture. Findings could relate to presbyesophagus or neuromuscular dis order. 2. Small hiatal hernia. 3. No evidence of gastroesophageal reflux. 4. Small anterior aspirate at C5-C6, mildly impressing upon the posterior esophagus.
== END ==
LOC: RADFLMAIN 07:50
PROVIDERS: ATTEND Psychiatry & Neurology Pain Medicine
DX: K44.9 Diaphragmatic hernia without obstruction or gangrene (principal)
CPT/HCPCS: 74220

== ENCOUNTER → 2016-11-05 | Outpatient (CLI) | payer MEDICAID, MEDICARE ==
--- NOTE | 2016-11-05 12:50 | FL ---
Modified barium swallow HISTORY: Dysphasia, Diego's palsy 1 minute 55 seconds fluoroscopy time supplied. Patient was given barium mixed with thin and thick liq uids, solid food. Correlation to previous exam 10/24/2016. Patient was evaluated in real-time in the lateral projection under fluoroscopy. There is no obstruction to flow. Some residuals noted along the vallecula with solid foods mixed with barium. Residuals cleared with swallowing of liquids. No extrinsic lesion. See dictated report from speech pathology for full evaluation.
== END | disposition home or self-care (01) ==
LOC: RADFLMAIN 11:06
PROVIDERS: ATTEND Psychiatry & Neurology Pain Medicine
DX: G51.0 Bell's palsy (principal)
CPT/HCPCS: 74230

== ENCOUNTER → 2016-11-17 | Outpatient (CLI) | payer MEDICAID, MEDICARE | END | disposition home or self-care (01) | LOC: LABWHC1 09:28 | PROVIDERS: ATTEND Psychiatry & Neurology Pain Medicine | DX: G43.009 Migraine without aura, not intractable, without status migrainosus (principal); J44.9 Chronic obstructive pulmonary disease, unspecified; J30.89 Other allergic rhinitis; K21.0 Gastro-esophageal reflux disease with esophagitis; M54.17 Radiculopathy, lumbosacral region; R13.10 Dysphagia, unspecified; G70.00 Myasthenia gravis without (acute) exacerbation; Z23 Encounter for immunization; Z12.5 Encounter for screening for malignant neoplasm of prostate | CPT/HCPCS: 36415; 80307; 83519; 86235 ==

== ENCOUNTER → 2017-05-20 | Outpatient (CLI) | payer MEDICAID, MEDICARE ==
[2017-05-20 10:11] LABS: Basophils # (A) 0.1 k/uL (0-0.2); Basophils % (A) 1 %; Eosinophils # (A) 0.1 k/uL (0-0.7); Eosinophils % (A) 2 %; HCT 48.3 % (39.0-53.0); HGB 15.6 gm/dL (13.0-17.5); Lymphocytes # (A) 1.7 k/uL (1.0-4.8); Lymphocytes % (A) 26 %; MCH 31.8 pg (25.0-35.0); MCHC 32.4 g/dL (31.0-37.0); MCV 98.2 fL (80.0-100.0); Mean Platelet Volume 7.8; Monocytes # (A) 0.4 k/uL (0-1.0); Monocytes % (A) 6 %; Neutrophils # (A) 3.9 k/uL (1.3-7.7); Neutrophils % (A) 61 %; Platelet Count 192 k/uL (150-450); RBC 4.92 m/uL (4.30-5.90); RDW 13.2 % (11.5-15.5); WBC 6.4 k/uL (3.8-10.6)
[2017-05-20 10:38] LABS: ALT 26 U/L (21-72); AST 26 U/L (17-59); Alkaline Phosphatase 88 U/L (38-126); Anion Gap 10 mmol/L; Blood Urea Nitrogen 19 mg/dL (9-20); Calcium 9.8 mg/dL (8.4-10.2); Carbon Dioxide 34 mmol/L (22-30); Chloride 99 mmol/L (98-107); Cholesterol 121 mg/dL (<200); Glucose 92 mg/dL (74-99); HDL Cholesterol 52 mg/dL (40-60); LDL Cholesterol,Calculated 60 mg/dL (0-99); Potassium 4.9 mmol/L (3.5-5.1); Sodium 143 mmol/L (137-145); Total Bilirubin 0.8 mg/dL (0.2-1.3); Triglycerides 47 mg/dL (<150)
[2017-05-20 10:52] LABS: T4, Free (Free Thyroxine) 1.27 ng/dL (0.78-2.19)
[2017-05-20 11:06] LABS: PSA Annual Screen 5.17 ng/mL (0.00-4.00)
== END | disposition home or self-care (01) ==
LOC: LABWHC1 09:14
PROVIDERS: ATTEND Family Medicine
DX: Z00.00 Encounter for general adult medical examination without abnormal findings (principal); R63.4 Abnormal weight loss; K21.0 Gastro-esophageal reflux disease with esophagitis; G43.009 Migraine without aura, not intractable, without status migrainosus; J44.9 Chronic obstructive pulmonary disease, unspecified; J30.89 Other allergic rhinitis; M54.17 Radiculopathy, lumbosacral region; Z12.5 Encounter for screening for malignant neoplasm of prostate
CPT/HCPCS: 84439; 80061; 80053; 84443; 85025; 36415; G0103

== ENCOUNTER 2017-07-22 12:48 | Emergency (ER) | payer MEDICAID, MEDICARE ==
[2017-07-22 12:51] VITALS: RESP 18
--- NOTE | 2017-07-22 13:10 | ED ---
General Adult HPI - General Chief complaint: Headache Stated complaint: headache Time Seen by Provider: 07/22/17 13:09 Source: patient Mode of arrival: wheelchair Limitations: no limitations - History of Present Illness Initial comments: Dashawn Fair D2-year-old gentleman with a past medical history significant for chronic migraines, currently followed by his primary care physician and neurologist for this problem. Patient presents to the emergency department today for evaluation of a migraine for 2 days duration. Patient reports that he woke yesterday with a migraine headache, he states that he has tried taking his home medications including Compazine, Toradol and is regular daily medications. Despite being compliant with his medications he reports that he is developed progressively worsening headache over the past 24 hours as well as nausea and vomiting. Today he was unable to hold down his medications and noted that his headache was getting worse at which time he decided he would come to the ER for further evaluation. Patient describes the headache as a global headache. It was not sudden in onset. It is associated with photophobia and phonophobia. He reports that this headache is identical to previous migraine headaches. Most recent was 3 weeks ago. Patient has undergone a thorough evaluation over the past few years for his migraines. He has had head CTs as well as MRIs. He is currently undergoing an intranasal nerve ablation therapy in an attempt to treat his migraines. His next treatment is scheduled for later this week. Patient denies any fevers, nuchal rigidity. He denies any thunderclap headache. He denies any sudden onset. He denies any symptoms which are new to to this headache. He denies any recent head trauma. - Related Data Home Medications Medication Instructions Recorded Confirmed Fluticasone/Salmeterol [Advair 1 puff INHALATION RT-DAILY 07/10/13 07/22/17 250-50 Diskus] fentaNYL 50MCG/HR PATCH [Duragesic 50 mcg TRANSDERM Q48H 05/25/14 07/22/17 50MCG/HR] Albuterol Nebulized [Ventolin 2.5 mg INHALATION RT-Q4H PRN 09/15/15 07/22/17 Nebulized] Ondansetron [Zofran ODT] 8 mg PO Q8HR PRN 07/06/16 07/22/17 Ketorolac [Toradol] 10 mg PO Q6HR 07/22/17 07/22/17 Prochlorperazine [Compazine] 10 mg PO Q6H 07/22/17 07/22/17 tiZANidine [Zanaflex] 2 mg PO Q8HR PRN 07/22/17 07/22/17 Previous Rx's Medication Instructions Recorded Pantoprazole Sodium [Protonix] 40 mg PO BID #60 tablet. 07/08/16 Allergies Allergy/AdvReac Type Severity Reaction Status Date / Time chocolate flavor Allergy Unknown Verified 07/22/17 12:51 Iodinated Contrast- Oral and Allergy Anaphylaxis Verified 07/22/17 12:51 IV Dye [Iodinated Contrast Media - IV Dye] iodine Allergy Anaphylaxis Verified 07/22/17 12:51 Penicillins Allergy Anaphylaxis Verified 07/22/17 12:51 Sulfa (Sulfonamide Allergy Anaphylaxis Verified 07/22/17 12:51 Antibiotics) banana AdvReac HEADACHE Verified 07/22/17 12:51 tree nut [Nut] AdvReac HEADACHE Verified 07/22/17 12:51 yellow dye AdvReac HEADACHE Verified 07/22/17 12:51 Review of Systems ROS Statement: Those systems with pertinent positive or pertinent negative responses have been documented in the HPI. ROS Other: All systems not noted in ROS Statement are negative. Constitutional: Denies: fever Eyes: Denies: vision change ENT: Denies: hearing loss Respiratory: Denies: cough, dyspnea Cardiovascular: Denies: chest pain, palpitations Endocrine: Reports: fatigue Gastrointestinal: Reports: nausea, vomiting Musculoskeletal: Denies: back pain Skin: Denies: rash, lesions Neurological: Reports: headache. Denies: paresthesias, confusion, vertigo Psychiatric: Denies: anxiety Hematological/Lymphatic: Denies: easy bleeding Past Medical History Past Medical History: Cancer, COPD, GERD/Reflux, GI Bleed, Myocardial Infarction (SD) Additional Past Medical History / Comment(s): Recent 08/03/15 EGD with bx and colonoscopy with bx for upper abdominal pain and hematemesis,/vomiting, frequent severe migraines, bladder CA with BCG treatment, testicular ca with orchiectomy and radiation, chronic back pain, hiatel hernia, gastritis, bells palsy. Last Myocardial Infarction Date:: 05/25/14 History of Any Multi-Drug Resistant Organisms: None Reported Past Surgical History: Adenoidectomy, Appendectomy, Heart Catheterization, Hernia Repair, Orthopedic Surgery, Tonsillectomy Additional Past Surgical History / Comment(s): 08/03/15 EGD with negative BX and colonoscopy with polypectomy and BX-neg, 05/27/14 normal cardiac cath, several back sx including laminectomy, spinous process removed T11 and T12/cage and arturo , bilateral arthroscopic knee surgeries with one done twice, left/Right thumb surgeries with one having titanium joint, L rotator cuff repair, several nasal polypectomies, RFA back, R/L inguinal hernia reairs. Past Anesthesia/Blood Transfusion Reactions: No Reported Reaction Past Psychological History: No Psychological Hx Reported Smoking Status: Former smoker Past Alcohol Use History: None Reported Past Drug Use History: None Reported - Past Family History Father Family Medical History: Cancer Additional Family Medical History / Comment(s): Father of stomach ca at the age of 65 yrs. Mother Family Medical History: No Reported History Additional Family Medical History / Comment(s): Mother of "old age". She was 83 yrs old Brother(s) Family Medical History: Diabetes Mellitus Sister(s) Family Medical History: Diabetes Mellitus Additional Family Medical History / Comment(s): breast ca General Exam Limitations: no limitations General appearance: alert, other (appears uncomfortable) Head exam: Present: atraumatic, normocephalic Eye exam: Present: normal appearance, PERRL, EOMI. Absent: scleral icterus, conjunctival injection, nystagmus ENT exam: Present: mucous membranes dry Neck exam: Absent: meningismus Respiratory exam: Absent: respiratory distress Cardiovascular Exam: Present: regular rate, normal rhythm GI/Abdominal exam: Present: soft. Absent: distended Rectal exam: Present: deferred Extremities exam: Present: normal capillary refill Neurological exam: Present: alert, oriented X3, CN II-XII intact Psychiatric exam: Present: normal affect, normal mood Skin exam: Present: warm, dry, intact Course Vital Signs 07/22/17 07/22/17 12:48 14:43 Temperature 98.4 F 98.1 F Pulse Rate 69 85 Respiratory 18 18 Rate Blood Pressure 154/81 117/56 O2 Sat by Pulse 94 L 94 L Oximetry - Reevaluation(s) Reevaluation #1: Patient was reevaluated, upon reevaluation patient was resting comfortably in bed. Patient states complete resolution of his nausea, no further episodes of vomiting. He reports a significant improvement in his headache at this time. Patient states that he feels much better and is comfortable being discharged home with the plan to continue his home medications and follow up with neurology as scheduled later this week. 07/22/17 14:25 Medical Decision Making - Medical Decision Making Patient was seen and evaluated, history was obtained from the patient and his at bedside Patient with a very extensive history of migraine headaches, followed by neurology, undergoing multiple therapies and on multiple oral therapies. Due to nausea and vomiting patient has been unable to keep down his home medications. Patient is concerned for dehydration. Patient with no red flag symptoms for headache, no sudden onset, no associated nuchal rigidity, no associated fever, the worse headache of his life. Patient describes the headache as identical to previous migraines. IV fluids and medications were ordered As reevaluated after fluids and medication, patient feeling much better. No nausea, no vomiting, patient states his headache has improved significantly. At this time the patient states he feels comfortable being discharged home with a plan to follow up with his neurologist as scheduled. All questions pertaining to care were answered the best my ability and the patient was discharged home in stable condition. Disposition Clinical Impression: Migraine Disposition: HOME SELF-CARE Condition: Good Instructions: Acute Headache (ED) Is patient prescribed a controlled substance at d/c from ED?: No Referrals: Lul Garcia MD [Primary Care Provider] - 1-2 days Kaycee Roach MD [STAFF PHYSICIAN] - 1-2 days Time of Disposition: 14:27
[2017-07-22] MEDS ORDERED: MORPHINE SULFATE 4 MG/ML SYRINGE IVP STA (13:15)
[2017-07-22] MEDS ORDERED: SODIUM CHLORIDE 0.9% 1,000 ML IV ONE (13:15)
[2017-07-22] MEDS ORDERED: METOCLOPRAMIDE 5 MG/ML 2 ML VIAL IVP STA (13:15)
[2017-07-22] MEDS ORDERED: KETOROLAC 30 MG/ML 1 ML VIAL IVP ONE (13:15)
[2017-07-22] MEDS ORDERED: diphenhydrAMINE 50 MG/ML 1 ML VIAL IVP STA (13:15)
[2017-07-22 14:46] VITALS: BP 117/56; PULSE 85; TEMP 98.1
== END 2017-07-22 14:45 | disposition home or self-care (01) ==
LOC: EC 12:48
DX: G43.909 Migraine, unspecified, not intractable, without status migrainosus (principal); J44.9 Chronic obstructive pulmonary disease, unspecified; K21.9 Gastro-esophageal reflux disease without esophagitis; I25.2 Old myocardial infarction; Z85.51 Personal history of malignant neoplasm of bladder; Z85.47 Personal history of malignant neoplasm of testis; Z90.79 Acquired absence of other genital organ(s); Z87.891 Personal history of nicotine dependence; Z98.890 Other specified postprocedural states; Z79.1 Long term (current) use of non-steroidal anti-inflammatories (NSAID); Z79.51 Long term (current) use of inhaled steroids; Z79.891 Long term (current) use of opiate analgesic; Z79.899 Other long term (current) drug therapy; Z88.0 Allergy status to penicillin; Z88.2 Allergy status to sulfonamides; Z91.018 Allergy to other foods; Z91.041 Radiographic dye allergy status; Z91.048 Other nonmedicinal substance allergy status
CPT/HCPCS: 99283; 96374; 96375 ×3; 96361; J2270; J1200; J2765; J1885

== ENCOUNTER 2017-10-10 09:56 | Inpatient (IN) | payer MEDICAID, MEDICARE ==
[2017-10-10] MEDS ORDERED: diphenhydrAMINE 50 MG/ML 1 ML VIAL IVP STA (10:49)
[2017-10-10] MEDS ORDERED: METOCLOPRAMIDE 5 MG/ML 2 ML VIAL IVP STA (10:49)
[2017-10-10] MEDS ORDERED: SODIUM CHLORIDE 0.9% 1,000 ML IV STA ×2 (10:49)
[2017-10-10 11:20] LABS: Basophils % (A) 1 %; Eosinophils # (A) 0.2 k/uL (0-0.7); Eosinophils % (A) 2 %; HCT 49.6 % (39.0-53.0); HGB 16.1 gm/dL (13.0-17.5); Lymphocytes # (A) 1.4 k/uL (1.0-4.8); Lymphocytes % (A) 16 %; MCH 31.5 pg (25.0-35.0); MCHC 32.5 g/dL (31.0-37.0); Mean Platelet Volume 7.3; Monocytes # (A) 0.6 k/uL (0-1.0); Monocytes % (A) 7 %; Neutrophils # (A) 6.3 k/uL (1.3-7.7); Neutrophils % (A) 72 %; Platelet Count 256 k/uL (150-450); RBC 5.11 m/uL (4.30-5.90); RDW 14.2 % (11.5-15.5); WBC 8.8 k/uL (3.8-10.6)
[2017-10-10 11:21] LABS: Appearance,Urine Clear (Clear); Bilirubin,Urine Negative (Negative); Blood,Urine Negative (Negative); Color,Urine Yellow; Glucose,Urine (UA) Negative (Negative); Ketones,Urine Negative (Negative); Leukocyte Esterase,Urine Negative (Negative); Nitrite,Urine Negative (Negative); PH, Urine 5.5 (5.0-8.0); Protein,Urine Negative (Negative); Specific Gravity,Urine 1.013 (1.001-1.035)
[2017-10-10 11:32] LABS: Amylase 71 U/L (30-110); Anion Gap 7 mmol/L; Calcium 9.4 mg/dL (8.4-10.2); Carbon Dioxide 31 mmol/L (22-30); Chloride 101 mmol/L (98-107); Glucose 89 mg/dL (74-99); Lipase 28 U/L (23-300); Sodium 139 mmol/L (137-145); Total Protein 7.1 g/dL (6.3-8.2)
--- NOTE | 2017-10-10 11:37 | ED ---
Headache HPI - General Chief Complaint: Headache Stated Complaint: Headache, Vomiting Time Seen by Provider: 10/10/17 10:35 Source: RN notes reviewed, old records reviewed Mode of arrival: wheelchair Limitations: no limitations - History of Present Illness Initial Comments: This Patient is a 72-year-old male with history of chronic migraines presents emergency department today with 2 weeks of migraine-like headache. Patient reports that he has been evaluated by Dr. Roach and had BS PG nasal nerve ablation last week, he is also received IV and Toradol shots for today. He is reports he also had a weight loss due to the persistent nausea and vomiting. Patient reports he's had no falls or head trauma. He states this migraine is typical were he has worsening with bright lights and loud noises. He states he occasionally notes a visual aura. He reports he has no significant abdominal pain at this time. [facility] doctors concern for dehydration and weight loss. Patient has had no weakness or neurological deficits. - Related Data Home Medications Medication Instructions Recorded Confirmed Fluticasone/Salmeterol [Advair 1 puff INHALATION RT-DAILY 07/10/13 10/10/17 250-50 Diskus] fentaNYL 50MCG/HR PATCH [Duragesic 50 mcg TRANSDERM Q48H 05/25/14 10/10/17 50MCG/HR] Albuterol Nebulized [Ventolin 2.5 mg INHALATION RT-Q4H PRN 09/15/15 10/10/17 Nebulized] Prochlorperazine [Compazine] 10 mg PO Q6H 07/22/17 10/10/17 Acetaminophen [Tylenol] 1,000 mg PO Q4-6H PRN 10/10/17 10/10/17 Multivitamins, Thera [Multivitamin 1 tab PO DAILY 10/10/17 10/10/17 (formulary)] SUMAtriptan SUCCINATE [Onzetra 1 inh EA NOSTRIL DAILY PRN 10/10/17 10/10/17 Xsail] Allergies Allergy/AdvReac Type Severity Reaction Status Date / Time chocolate flavor Allergy Unknown Verified 10/10/17 12:12 Iodinated Contrast- Oral and Allergy Anaphylaxis Verified 10/10/17 12:12 IV Dye [Iodinated Contrast Media - IV Dye] iodine Allergy Anaphylaxis Verified 10/10/17 12:12 Penicillins Allergy Anaphylaxis Verified 10/10/17 12:12 Sulfa (Sulfonamide Allergy Anaphylaxis Verified 10/10/17 12:12 Antibiotics) banana AdvReac HEADACHE Verified 10/10/17 12:12 tree nut [Nut] AdvReac HEADACHE Verified 10/10/17 12:12 yellow dye AdvReac HEADACHE Verified 10/10/17 12:12 Review of Systems ROS Statement: Those systems with pertinent positive or pertinent negative responses have been documented in the HPI. ROS Other: All systems not noted in ROS Statement are negative. Past Medical History Past Medical History: Cancer, COPD, GERD/Reflux, GI Bleed, Myocardial Infarction ([place]) Additional Past Medical History / Comment(s): Recent 08/03/15 EGD with bx and colonoscopy with bx for upper abdominal pain and hematemesis,/vomiting, frequent severe migraines, bladder CA with BCG treatment, testicular ca with orchiectomy and radiation, chronic back pain, hiatel hernia, gastritis, bells palsy. Last Myocardial Infarction Date:: 05/25/14 History of Any Multi-Drug Resistant Organisms: None Reported Past Surgical History: Adenoidectomy, Appendectomy, Heart Catheterization, Hernia Repair, Orthopedic Surgery, Tonsillectomy Additional Past Surgical History / Comment(s): 08/03/15 EGD with negative BX and colonoscopy with polypectomy and BX-neg, 05/27/14 normal cardiac cath, several back sx including laminectomy, spinous process removed T11 and T12/cage and arturo , bilateral arthroscopic knee surgeries with one done twice, left/Right thumb surgeries with one having titanium joint, L rotator cuff repair, several nasal polypectomies, RFA back, R/L inguinal hernia reairs. Past Anesthesia/Blood Transfusion Reactions: No Reported Reaction Past Psychological History: No Psychological Hx Reported Smoking Status: Former smoker Past Alcohol Use History: None Reported Past Drug Use History: None Reported - Past Family History Father Family Medical History: Cancer Additional Family Medical History / Comment(s): Father of stomach ca at the age of 65 yrs. Mother Family Medical History: No Reported History Additional Family Medical History / Comment(s): Mother of "old age". She was 83 yrs old Brother(s) Family Medical History: Diabetes Mellitus Sister(s) Family Medical History: Diabetes Mellitus Additional Family Medical History / Comment(s): breast ca General Exam - General Exam Comments Initial Comments: This patient's a 72-year-old male. Alert and oriented. No significant distress. Limitations: no limitations General appearance: alert, in no apparent distress Head exam: Present: atraumatic, normocephalic, normal inspection Eye exam: Present: normal appearance, PERRL, EOMI. Absent: scleral icterus, conjunctival injection, periorbital swelling ENT exam: Present: normal exam, mucous membranes moist Neck exam: Present: normal inspection. Absent: tenderness, meningismus, lymphadenopathy Respiratory exam: Present: normal lung sounds bilaterally. Absent: respiratory distress, wheezes, rales, rhonchi, stridor Cardiovascular Exam: Present: regular rate, normal rhythm, normal heart sounds. Absent: systolic murmur, diastolic murmur, rubs, gallop, clicks GI/Abdominal exam: Present: soft, normal bowel sounds. Absent: distended, tenderness, guarding, rebound, rigid Extremities exam: Present: normal inspection, full ROM, normal capillary refill. Absent: tenderness, pedal edema, joint swelling, calf tenderness Back exam: Present: normal inspection Neurological exam: Present: alert, oriented X3, CN II-XII intact Expanded Patient oriented to: Present: person, place, time Speech: Present: fluid speech Cranial nerves: EOM's Intact: Normal Cerebellar function: Finger to Nose: Normal Upper motor neuron: Pronator Drift: Normal Sensory exam: Upper Extremity Light Touch: Normal, Lower Extremity Light Touch: Normal Motor strength exam: RUE: 5, LUE: 5, RLE: 5, LLE: 5 Eye Response: (4) open spontaneously Motor Response: (6) obeys commands Verbal Response: (5) oriented Johanna Total: 15 Psychiatric exam: Present: normal affect, normal mood Skin exam: Present: warm, dry, intact, normal color. Absent: rash Course Vital Signs 10/10/17 10:26 Temperature 98.2 F Pulse Rate 50 L Respiratory 16 Rate Blood Pressure 129/66 O2 Sat by Pulse 94 L Oximetry Medical Decision Making - Medical Decision Making 72-year-old male presents with chronic migraines worse over the past 2 weeks. At this time patient's labwork was reviewed and unremarkable. Family is also concerned because Patient has had weight loss over the past 2 weeks due to severe vomiting associated with his migraines. Patient was evaluated today by his primary care physician joseph for further evaluation. This point initial lab work shows no significant changes. CT was negative for any acute process. Is no focal or lateralizing findings or deficits. Family is concerned about his weight loss and pain management at home. Would like to have the Patient that it. Discussed he will keep the Patient for observation, IV fluids and pain management and consult to neurology. - Lab Data Result diagrams: 10/10/17 11:00 10/10/17 11:00 Lab Results 10/10/17 10/10/17 10/10/17 Range/Units 11:00 11:00 11:00 WBC 8.8 (3.8-10.6) k/uL RBC 5.11 (4.30-5.90) m/uL Hgb 16.1 (13.0-17.5) gm/dL Hct 49.6 (39.0-53.0) % MCV 97.0 (80.0-100.0) fL MCH 31.5 (25.0-35.0) pg MCHC 32.5 (31.0-37.0) g/dL RDW 14.2 (11.5-15.5) % Plt Count 256 (150-450) k/uL Neutrophils % 72 % Lymphocytes % 16 % Monocytes % 7 % Eosinophils % 2 % Basophils % 1 % Neutrophils # 6.3 (1.3-7.7) k/uL Lymphocytes # 1.4 (1.0-4.8) k/uL Monocytes # 0.6 (0-1.0) k/uL Eosinophils # 0.2 (0-0.7) k/uL Basophils # 0.0 (0-0.2) k/uL Sodium 139 (137-145) mmol/L Potassium 5.1 (3.5-5.1) mmol/L Chloride 101 (98-107) mmol/L Carbon Dioxide 31 H (22-30) mmol/L Anion Gap 7 mmol/L BUN 17 (9-20) mg/dL Creatinine 0.66 (0.66-1.25) mg/dL Est GFR (CKD-EPI)AfAm >90 (>60 ml/min/1.73 sqM) Est GFR (CKD-EPI)NonAf >90 (>60 ml/min/1.73 sqM) Glucose 89 (74-99) mg/dL Calcium 9.4 (8.4-10.2) mg/dL Total Bilirubin 1.0 (0.2-1.3) mg/dL AST 29 (17-59) U/L ALT 31 (21-72) U/L Alkaline Phosphatase 78 (38-126) U/L Total Protein 7.1 (6.3-8.2) g/dL Albumin 4.0 (3.5-5.0) g/dL Amylase 71 (30-110) U/L Lipase 28 (23-300) U/L Urine Color Yellow Urine Appearance Clear (Clear) Urine pH 5.5 (5.0-8.0) Ur Specific [place] 1.013 (1.001-1.035) Urine Protein Negative (Negative) Urine Glucose (UA) Negative (Negative) Urine Ketones Negative (Negative) Urine Blood Negative (Negative) Urine Nitrite Negative (Negative) Urine Bilirubin Negative (Negative) Urine Urobilinogen 2.0 (<2.0) mg/dL Ur Leukocyte Esterase Negative (Negative) 10/10/17 11:37 EKG performed at 1123 shows normal sinus rhythm left axis deviation. Incomplete right bundle branch block. Septal infarct. Age undetermined. Abnormal EKG noted. Ventricular rate of 61 bpm. OK interval is 162 ms. QRS ration 112 ms. QT QTc is 412/414 ms. - Radiology Data Radiology results: report reviewed No gingival hemorrhage or midline shift. Diffuse age-related cervical atrophy and chronic small vessel ischemic change noted. Disposition Clinical Impression: Weight loss, Intractable migraine Disposition: HOME SELF-CARE Condition: Good Is patient prescribed a controlled substance at d/c from ED?: No Referrals: Lul Garcia MD [Primary Care Provider] - 1-2 days Time of Disposition: 14:06
[2017-10-10 11:38] LABS: ALT 31 U/L (21-72); AST 29 U/L (17-59); Alkaline Phosphatase 78 U/L (38-126); Blood Urea Nitrogen 17 mg/dL (9-20); Potassium 5.1 mmol/L (3.5-5.1)
--- NOTE | 2017-10-10 11:45 | CT ---
EXAMINATION TYPE: CT brain wo con DATE OF EXAM: 10/10/2017 COMPARISON: 10/14/2015 HISTORY: Severe headache for 4 days. History of migraine CT DLP: 1072.3 mGycm Automated exposure control for dose reduction was used. TECHNIQUE: CT scan of the head is performed without contrast. FINDINGS: There is no acute intracranial hemorrhage or midline shift identified. There is diffuse v entricular and sulcal prominence consistent with diffuse age-related cerebral atrophy. There is low- attenuation in the periventricular white matter consistent with chronic small vessel ischemic change. The globes are intact sinuses are clear. Postsurgical changes of the paranasal sinuses are seen. C hronic periosteal thickening from prior sinusitis is seen of the maxillary sinuses, however there is only scant current mucosal thickening. Remaining visualized paranasal sinuses and mastoid air cells a re well aerated. IMPRESSION: No acute intracranial hemorrhage or midline shift. There is diffuse age-related cerebra l atrophy and chronic small vessel ischemic change noted.
[2017-10-10] MEDS ORDERED: IBUPROFEN 400 MG TAB PO PRN (14:07)
[2017-10-10] MEDS ORDERED: NALOXONE 0.4 MG/ML 1 ML VIAL IV PRN (14:07)
[2017-10-10] MEDS ORDERED: ACETAMINOPHEN TAB 325 MG TAB PO PRN (14:07)
[2017-10-10] MEDS ORDERED: ALBUTEROL NEBULIZED 2.5 MG/3 ML INHALATION PRN (14:09)
[2017-10-10] MEDS ORDERED: SUMATRIPTAN SUCCINATE EA NOSTRIL PRN ×2 (14:09→15:21)
[2017-10-10] MEDS ORDERED: ACETAMINOPHEN TAB 500 MG TAB PO PRN (14:09)
[2017-10-10] MEDS ORDERED: PROCHLORPERAZINE 10 MG TAB PO SCH (14:15)
[2017-10-10] MEDS: MORPHINE SULFATE 4 MG/ML SYRINGE IV PRN ×3 (14:27→21:32)
[2017-10-10] MEDS: ONDANSETRON 4 MG/2 ML VIAL IVP PRN (14:28)
[2017-10-10] MEDS: PROCHLORPERAZINE 10 MG TAB PO SCH ×2 (15:31→23:16)
[2017-10-10] MEDS: SODIUM CHLORIDE 0.9% 1,000 ML IV SCH ×2 (15:31→20:11)
[2017-10-10] MEDS: KETOROLAC 30 MG/ML 1 ML VIAL IVP PRN (16:22)
[2017-10-10] MEDS: Acetaminophen-Codeine 300-30mg TAB PO PRN (20:03)
[2017-10-10] MEDS: SYMBICORT 80-4.5 MCG INHALER INHALATION SCH (20:06)
[2017-10-11] MEDS: Acetaminophen-Codeine 300-30mg TAB PO PRN (00:16)
--- NOTE | 2017-10-11 00:18 | P.CNNES ---
History of Present Illness Consult date: 10/10/17 Reason for Consult: This patient admitted with intractable headache pain. History of Present Illness: This patient is a 72-year-old right-handed white male who has a history of chronic migraine headaches. He has had multiple admissions through the emergency room for treatment of his headache symptoms. Patient states he follows in the outpatient neurology clinic and is undergone multiple nerve blocks and ablation procedures. His headaches have not shown much improvement. He is reporting weight loss and persistent nausea vomiting symptoms. He states that his migraine headache symptoms have been worsening over the last several months. He is also noted some weight loss which needs further medical evaluation. Patient denies any new findings other than the chronic headache pain. It is mostly located in the bifrontal and occipital region of the head and scalp area. He has been treated by injections as well as Botox for treatment of his headaches but has very little significant improvement. He was brought into the emergency room for further evaluation at [facility] today. He was given some morphine which did seem to alleviate much of his headache pain. Patient was sent for computed tomography scan of the brain today. CAT scan reveals no acute intracranial hemorrhage or midline shift. There is mild to moderate degree of age-related cerebral atrophy and chronic small vessel ischemia. The patient is otherwise resting comfortably. We did review all results with him. He states that his headaches are mostly bifrontal and occipital in nature. 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 We have recommended that he have the nerve block procedures done for treatment. We reviewed the results of his CAT scan of the brain today with the patient. Patient is now been admitted and neurology has been consulted for further evaluation and recommendations. Review of Systems Constitutional: Denies chills, Denies fever Eyes: denies blurred vision, denies pain Ears, nose, mouth and throat: Denies headache, Denies sore throat Cardiovascular: Denies chest pain, Denies shortness of breath Respiratory: Denies cough Gastrointestinal: Denies abdominal pain, Denies diarrhea, Denies nausea, Denies vomiting Musculoskeletal: Denies myalgias Integumentary: Denies pruritus, Denies rash Neurological: Reports change in mentation, Reports confusion, Reports headaches , Reports migraines, Denies numbness, Denies weakness Psychiatric: Denies anxiety, Denies depression Endocrine: Denies fatigue, Denies weight change Past Medical History Past Medical History: Cancer, COPD, GERD/Reflux, GI Bleed, Myocardial Infarction ([place]) Additional Past Medical History / Comment(s): Recent 08/03/15 EGD with bx and colonoscopy with bx for upper abdominal pain and hematemesis,/vomiting, frequent severe migraines, bladder CA with BCG treatment, testicular ca with rt orchiectomy and radiation, chronic back pain, hiatel hernia, gastritis, bells palsy. Last Myocardial Infarction Date:: 05/25/14 History of Any Multi-Drug Resistant Organisms: None Reported Past Surgical History: Adenoidectomy, Appendectomy, Heart Catheterization, Hernia Repair, Orthopedic Surgery, Tonsillectomy Additional Past Surgical History / Comment(s): 08/03/15 EGD with negative BX and colonoscopy with polypectomy and BX-neg, 05/27/14 normal cardiac cath, several back sx including laminectomy, spinous process removed T11 and T12/cage and arturo , bilateral arthroscopic knee surgeries with one done twice, left/Right, thumb surgeries with rt one having titanium joint, L rotator cuff repair, several nasal polypectomies, RFA back, R/L inguinal hernia repairs.rt orchiectomy Past Anesthesia/Blood Transfusion Reactions: No Reported Reaction Smoking Status: Former smoker - Past Family History Father Family Medical History: Cancer Additional Family Medical History / Comment(s): Father of stomach ca at the age of 65 yrs. Mother Family Medical History: No Reported History Additional Family Medical History / Comment(s): Mother of "old age". She was 83 yrs old Brother(s) Family Medical History: Diabetes Mellitus Sister(s) Family Medical History: Diabetes Mellitus Additional Family Medical History / Comment(s): breast ca Medications and Allergies Home Medications Medication Instructions Recorded Confirmed Type Fluticasone/Salmeterol [Advair 1 puff INHALATION RT-DAILY 07/10/13 10/10/17 History 250-50 Diskus] fentaNYL 50MCG/HR PATCH [Duragesic 50 mcg TRANSDERM Q48H 05/25/14 10/10/17 History 50MCG/HR] Albuterol Nebulized [Ventolin 2.5 mg INHALATION RT-Q4H PRN 09/15/15 10/10/17 History Nebulized] Prochlorperazine [Compazine] 10 mg PO Q6H 07/22/17 10/10/17 History Acetaminophen [Tylenol] 1,000 mg PO Q4-6H PRN 10/10/17 10/10/17 History Multivitamins, Thera [Multivitamin 1 tab PO DAILY 10/10/17 10/10/17 History (formulary)] SUMAtriptan SUCCINATE [Onzetra 1 inh EA NOSTRIL DAILY PRN 10/10/17 10/10/17 History Xsail] Allergies Allergy/AdvReac Type Severity Reaction Status Date / Time chocolate flavor Allergy Unknown Verified 10/10/17 12:12 Iodinated Contrast- Oral and Allergy Anaphylaxis Verified 10/10/17 12:12 IV Dye [Iodinated Contrast Media - IV Dye] iodine Allergy Anaphylaxis Verified 10/10/17 12:12 Penicillins Allergy Anaphylaxis Verified 10/10/17 12:12 Sulfa (Sulfonamide Allergy Anaphylaxis Verified 10/10/17 12:12 Antibiotics) banana AdvReac HEADACHE Verified 10/10/17 12:12 tree nut [Nut] AdvReac HEADACHE Verified 10/10/17 12:12 yellow dye AdvReac HEADACHE Verified 10/10/17 12:12 Physical Examination - Vital Signs Vital Signs: Vital Signs Temp Pulse Pulse Resp BP BP Pulse Ox 10/10/17 23:00 98.0 F 87 18 139/76 98 10/10/17 15:48 97.5 F L 88 19 132/76 94 L 10/10/17 15:11 87 16 130/62 93 L 10/10/17 14:00 89 16 126/82 96 10/10/17 12:00 51 L 16 126/87 95 10/10/17 10:26 98.2 F 50 L 16 129/66 94 L Intake and Output 10/10/17 10/10/17 10/11/17 14:59 22:59 06:59 Other: Voiding Method Toilet # Voids 1 Weight 53.07 kg - Constitutional General appearance: average body habitus, cooperative - EENT EENT: PERRL, mucous membranes moist - Respiratory Respiratory: lungs clear, normal breath sounds - Cardiovascular Cardiovascular: regular rate, normal S1, normal S2 Extremities: no peripheral edema bilaterally - Gastrointestinal Gastrointestinal: normoactive bowel sounds - Integumentary Integumentary: normal - Neurologic Cranial nerve examination: PERRL, EOMI, VFF, V1/V2/V3 grossly intact, face symmetric, intact gag reflex, intact corneal reflex, normal palatal elevation Speech examination: intact Sensorimotor examination: intact Motor examination - right side: 4/5: biceps, triceps, wrist flexion, wrist extension, elementary education tutor, hip flexors, knee extensors, dorsiflexion, toe extension (EHL) , plantarflexion Motor examination - left side: 4/5: biceps, triceps, wrist flexion, wrist extension, elementary education tutor, hip flexors, knee extensors, dorsiflexion, toe extension (EHL) , plantarflexion Detailed sensory examination: intact Reflex and gait examination: intact Reflexes: 1+: ankle, bicep, knee, tricep - Musculoskeletal Musculoskeletal: no pain - Psychiatric Psychiatric: mood/affect appropriate, cooperative Results - Laboratory Findings CBC and BMP: 10/10/17 11:00 10/10/17 11:00 Abnormal Lab Findings: Abnormal Labs 10/10/17 11:00 Carbon Dioxide 31 H Assessment and Plan (1) Occipital neuritis Current Visit: Yes Status: Acute Code(s): M54.81 - OCCIPITAL NEURALGIA SNOMED Code(s): 37585364 (2) Bundle branch block Current Visit: Yes Status: Acute Code(s): I45.4 - NONSPECIFIC INTRAVENTRICULAR BLOCK SNOMED Code(s): 4894700 (3) Bundle branch block Current Visit: Yes Status: Acute Code(s): I45.4 - NONSPECIFIC INTRAVENTRICULAR BLOCK SNOMED Code(s): 4337322 (4) Weight loss Current Visit: Yes Status: Acute Code(s): R63.4 - ABNORMAL WEIGHT LOSS SNOMED Code(s): 50577934 (5) Non-STEMI (non-ST elevated myocardial infarction) Current Visit: No Status: Acute Code(s): I21.4 - NON-ST ELEVATION (NSTEMI) MYOCARDIAL INFARCTION SNOMED Code(s): 491441731 (6) Headache, chronic migraine without aura Current Visit: No Status: Chronic Code(s): G43.709 - CHRONIC MIGRAINE W/O AURA, NOT INTRACTABLE, W/O STAT MIGR SNOMED Code(s): 61713147 Plan: This patient is a 72-year-old male with history of chronic headache pain. He was brought into the hospital due to intractable headaches. He has been treated with multiple injections and therapies to his head and neck region by Dr. Roach. He has undergone injections to the back and lumbar spine and cervical spine in the past. He does have evidence today of bilateral occipital neuritis. We are recommending that he undergo an occipital nerve block procedure for treatment. He is agreeable and we will begin requisition for anesthesia to perform this tomorrow for him. His overall prognosis at this time remains very guarded. Time with Patient: Greater than 30
[2017-10-11] MEDS: MORPHINE SULFATE 4 MG/ML SYRINGE IV PRN ×3 (01:53→10:46)
[2017-10-11] MEDS: ONDANSETRON 4 MG/2 ML VIAL IVP PRN (03:58)
[2017-10-11] MEDS: PROCHLORPERAZINE 10 MG TAB PO SCH ×4 (05:35→23:54)
[2017-10-11] MEDS: SODIUM CHLORIDE 0.9% 1,000 ML IV SCH ×3 (06:10→23:53)
[2017-10-11] MEDS: SYMBICORT 80-4.5 MCG INHALER INHALATION SCH ×2 (07:46→20:26)
[2017-10-11] MEDS: PANTOPRAZOLE 40 MG/10 ML VIAL IV SCH (08:53)
--- NOTE | 2017-10-11 09:04 | P.HPIM ---
History of Present Illness H&P Date: 10/11/17 Chief Complaint: Intractable migraine. This is a history of physical 72-year-old white female who has the last 3-4 days had intractable nausea and vomiting with significant migraine headache. He hasn't underlying history of chronic headache and has had COPD elements in the past also. Poor by mouth intake is noted with weight loss. Yesterday, he was brought in with his and he was appropriately evaluated in the emergency room after triage in my office. The patient otherwise has been given morphine with his fentanyl patch and is now stabilizing. Rehydration is noted and he seems less nauseated at this time. Poor appetite is otherwise noted. He currently is a nonsmoker for many many years. Review of Systems Constitutional: Reports chronic headaches Eyes: denies blurred vision, denies pain Ears, nose, mouth and throat: Denies headache, Denies sore throat Cardiovascular: Denies chest pain, Denies shortness of breath Respiratory: Denies cough Gastrointestinal: Reports nausea, Reports vomiting, Denies abdominal pain, Denies diarrhea Integumentary: Denies pruritus, Denies rash Neurological: Reports headaches Past Medical History Past Medical History: Cancer, COPD, GERD/Reflux, GI Bleed, Myocardial Infarction (PR) Additional Past Medical History / Comment(s): Recent 08/03/15 EGD with bx and colonoscopy with bx for upper abdominal pain and hematemesis,/vomiting, frequent severe migraines, bladder CA with BCG treatment, testicular ca with rt orchiectomy and radiation, chronic back pain, hiatel hernia, gastritis, bells palsy. Last Myocardial Infarction Date:: 05/25/14 History of Any Multi-Drug Resistant Organisms: None Reported Past Surgical History: Adenoidectomy, Appendectomy, Heart Catheterization, Hernia Repair, Orthopedic Surgery, Tonsillectomy Additional Past Surgical History / Comment(s): 08/03/15 EGD with negative BX and colonoscopy with polypectomy and BX-neg, 05/27/14 normal cardiac cath, several back sx including laminectomy, spinous process removed T11 and T12/cage and arturo , bilateral arthroscopic knee surgeries with one done twice, left/Right, thumb surgeries with rt one having titanium joint, L rotator cuff repair, several nasal polypectomies, RFA back, R/L inguinal hernia repairs.rt orchiectomy Past Anesthesia/Blood Transfusion Reactions: No Reported Reaction Smoking Status: Former smoker - Past Family History Father Family Medical History: Cancer Additional Family Medical History / Comment(s): Father of stomach ca at the age of 65 yrs. Mother Family Medical History: No Reported History Additional Family Medical History / Comment(s): Mother of "old age". She was 83 yrs old Brother(s) Family Medical History: Diabetes Mellitus Sister(s) Family Medical History: Diabetes Mellitus Additional Family Medical History / Comment(s): breast ca Medications and Allergies Home Medications Medication Instructions Recorded Confirmed Type Fluticasone/Salmeterol [Advair 1 puff INHALATION RT-DAILY 07/10/13 10/10/17 History 250-50 Diskus] fentaNYL 50MCG/HR PATCH [Duragesic 50 mcg TRANSDERM Q48H 05/25/14 10/10/17 History 50MCG/HR] Albuterol Nebulized [Ventolin 2.5 mg INHALATION RT-Q4H PRN 09/15/15 10/10/17 History Nebulized] Prochlorperazine [Compazine] 10 mg PO Q6H 07/22/17 10/10/17 History Acetaminophen [Tylenol] 1,000 mg PO Q4-6H PRN 10/10/17 10/10/17 History Multivitamins, Thera [Multivitamin 1 tab PO DAILY 10/10/17 10/10/17 History (formulary)] SUMAtriptan SUCCINATE [Onzetra 1 inh EA NOSTRIL DAILY PRN 10/10/17 10/10/17 History Xsail] Allergies Allergy/AdvReac Type Severity Reaction Status Date / Time chocolate flavor Allergy Unknown Verified 10/10/17 12:12 Iodinated Contrast- Oral and Allergy Anaphylaxis Verified 10/10/17 12:12 IV Dye [Iodinated Contrast Media - IV Dye] iodine Allergy Anaphylaxis Verified 10/10/17 12:12 Penicillins Allergy Anaphylaxis Verified 10/10/17 12:12 Sulfa (Sulfonamide Allergy Anaphylaxis Verified 10/10/17 12:12 Antibiotics) banana AdvReac HEADACHE Verified 10/10/17 12:12 tree nut [Nut] AdvReac HEADACHE Verified 10/10/17 12:12 yellow dye AdvReac HEADACHE Verified 10/10/17 12:12 Physical Exam Vitals: Vital Signs Temp Pulse Pulse Resp BP BP Pulse Ox 10/11/17 05:48 97.0 F L 92 18 121/56 92 L 10/10/17 23:00 98.0 F 87 18 139/76 98 10/10/17 15:48 97.5 F L 88 19 132/76 94 L 10/10/17 15:11 87 16 130/62 93 L 10/10/17 14:00 89 16 126/82 96 10/10/17 12:00 51 L 16 126/87 95 10/10/17 10:26 98.2 F 50 L 16 129/66 94 L Intake and Output 10/10/17 10/11/17 10/11/17 22:59 06:59 14:59 Other: Voiding Method Toilet # Voids 1 1 - Constitutional General appearance: no acute distress - EENT Eyes: EOMI - Neck Neck: no lymphadenopathy - Respiratory Respiratory: bilateral: CTA - Cardiovascular Rhythm: regular Heart sounds: normal: S1, S2 Abnormal Heart Sounds: no S3 Gallop - Gastrointestinal General gastrointestinal: soft, no tenderness - Integumentary Integumentary: no rash Results CBC & Chem 7: 10/10/17 11:00 10/10/17 11:00 Labs: Abnormal Lab Results - Last 24 Hours (Table) 10/10/17 Range/Units 11:00 Carbon Dioxide 31 H (22-30) mmol/L Thrombosis Risk Factor Assmnt - Choose All That Apply Any of the Below Risk Factors Present?: Yes Each Risk Factor Represents 2 Points: Age 61-74 years Thrombosis Risk Factor Assessment Total Risk Factor Score: 2 Thrombosis Risk Factor Assessment Level: Low Risk Assessment and Plan (1) Intractable migraine Current Visit: Yes Status: Acute Code(s): G43.919 - MIGRAINE, UNSP, INTRACTABLE, WITHOUT STATUS MIGRAINOSUS SNOMED Code(s): 917488225 (2) Weight loss Current Visit: Yes Status: Acute Code(s): R63.4 - ABNORMAL WEIGHT LOSS SNOMED Code(s): 28859229 (3) Hx of nicotine dependence Current Visit: No Status: Acute Code(s): Z87.891 - PERSONAL HISTORY OF NICOTINE DEPENDENCE SNOMED Code(s): 418342702 (4) Nausea & vomiting Current Visit: No Status: Resolved Code(s): R11.2 - NAUSEA WITH VOMITING, UNSPECIFIED SNOMED Code(s): 18075898 Plan: Appreciate neurologic input. Await occipital nerve block hopefully today. Check CBC and CMP in a.m.. Continue morphine for pain control with sentinel patch. Dr. Rangel's group will covering the weekend. Time with Patient: Greater than 30
[2017-10-11 09:32] VITALS: BMI 17.2
[2017-10-11] MEDS: MULTIVITAMINS, THERA 1 EACH TAB PO SCH (13:25)
[2017-10-11] MEDS: KETOROLAC 30 MG/ML 1 ML VIAL IVP PRN (18:34)
[2017-10-12] MEDS: ONDANSETRON 4 MG/2 ML VIAL IVP PRN (01:54)
[2017-10-12] MEDS: MORPHINE SULFATE 2 MG/ML SYRINGE IVP PRN ×4 (01:59→16:23)
[2017-10-12] MEDS: KETOROLAC 30 MG/ML 1 ML VIAL IVP PRN ×3 (06:02→20:21)
[2017-10-12] MEDS: PROCHLORPERAZINE 10 MG TAB PO SCH ×3 (06:02→17:32)
[2017-10-12] MEDS: SYMBICORT 80-4.5 MCG INHALER INHALATION SCH ×2 (07:30→19:32)
--- NOTE | 2017-10-12 07:49 | P.PN ---
Subjective Progress Note Date: 10/11/17 This patient is a 72-year-old male who was admitted to hospital with intractable headache pain yesterday evening. He was seen in neurology consultation yesterday and was felt to have findings of bilateral occipital neuritis. We have recommended the patient undergo an occipital nerve block procedure to be done by anesthesia this morning. We are still awaiting for the procedure to be completed. He is to continue with his current medications. We had recommended the patient undergo an occipital nerve block procedure today but he was unable to have this procedure done. We will check with nursing staff to see if this can be arranged for tomorrow morning. Overall his headache symptoms and pain have remained relatively stable and controlled with his current pain medications. We will continue close follow-up with the patient during this admission. Objective - Vital Signs Vital signs: Vital Signs Temp 97.0 F L 10/11/17 05:48 Pulse 92 10/11/17 05:48 Resp 18 10/11/17 05:48 BP 121/56 10/11/17 05:48 Pulse Ox 92 L 10/11/17 05:48 Intake & Output 10/10/17 10/11/17 10/11/17 18:59 06:59 18:59 Weight 53.07 kg 53.07 kg Other: Voiding Method Toilet # Voids 1 Madhu Andersen - Exam Physical examination: PHYSICAL EXAMINATION: Patient is resting comfortably in bed. VITAL SIGNS: Blood pressure is [133/70]. Heart rate is [95]. Respiration is [20] . Temperature is [98.8]. HEENT: Head is atraumatic, neck is supple, there were no carotid bruits. CHEST: Lungs are clear to auscultation and percussion. CARDIAC: S1, S2 normal rate and rhythm. There is no murmur. ABDOMEN: Soft and nontender. Bowel sounds are present. EXTREMITIES: There is no pedal edema. Peripheral pulses are present. Neurological examination: Patient's neurological examination is unchanged from yesterday. - Labs CBC & Chem 7: 10/10/17 11:00 10/10/17 11:00 Labs: Abnormal Lab Results - Last 24 Hours (Table) 10/10/17 Range/Units 11:00 Carbon Dioxide 31 H (22-30) mmol/L Assessment and Plan (1) Occipital neuritis Current Visit: Yes Status: Acute Code(s): M54.81 - OCCIPITAL NEURALGIA SNOMED Code(s): 14897294 (2) Bundle branch block Current Visit: Yes Status: Acute Code(s): I45.4 - NONSPECIFIC INTRAVENTRICULAR BLOCK SNOMED Code(s): 5815821 (3) Bundle branch block Current Visit: Yes Status: Acute Code(s): I45.4 - NONSPECIFIC INTRAVENTRICULAR BLOCK SNOMED Code(s): 8609074 (4) Weight loss Current Visit: Yes Status: Acute Code(s): R63.4 - ABNORMAL WEIGHT LOSS SNOMED Code(s): 81532081 (5) Non-STEMI (non-ST elevated myocardial infarction) Current Visit: No Status: Acute Code(s): I21.4 - NON-ST ELEVATION (NSTEMI) MYOCARDIAL INFARCTION SNOMED Code(s): 496488395 (6) Headache, chronic migraine without aura Current Visit: No Status: Chronic Code(s): G43.709 - CHRONIC MIGRAINE W/O AURA, NOT INTRACTABLE, W/O STAT MIGR SNOMED Code(s): 73317192 Plan: This patient is a 72-year-old male with history of chronic headache pain. He was brought into the hospital due to intractable headaches. He has been treated with multiple injections and therapies to his head and neck region by Dr. Roach. He has undergone injections to the back and lumbar spine and cervical spine in the past. He does have evidence today of bilateral occipital neuritis. We are recommending that he undergo an occipital nerve block procedure for treatment. He is agreeable and we will begin requisition for anesthesia to perform this tomorrow for him. Patient was unable to have occipital nerve block procedure done today and we will retry again tomorrow morning. We have instructed the nursing staff to contact anesthesia to see if this can be finalized and taking care of tomorrow for him. His overall prognosis at this time remains very guarded.
[2017-10-12] MEDS: SODIUM CHLORIDE 0.9% 1,000 ML IV SCH ×3 (08:30→20:20)
[2017-10-12] MEDS: PANTOPRAZOLE 40 MG/10 ML VIAL IV SCH (08:30)
[2017-10-12 08:51] LABS: ALT 29 U/L (21-72); AST 28 U/L (17-59); Albumin 3.1 g/dL (3.5-5.0); Alkaline Phosphatase 72 U/L (38-126); Anion Gap 8 mmol/L; Blood Urea Nitrogen 13 mg/dL (9-20); Calcium 8.8 mg/dL (8.4-10.2); Carbon Dioxide 30 mmol/L (22-30); Chloride 100 mmol/L (98-107); Glucose 96 mg/dL (74-99); Potassium 4.7 mmol/L (3.5-5.1); Sodium 138 mmol/L (137-145); Total Bilirubin 0.7 mg/dL (0.2-1.3); Total Protein 5.7 g/dL (6.3-8.2)
[2017-10-12] MEDS: Acetaminophen-Codeine 300-30mg TAB PO PRN (11:18)
[2017-10-12] MEDS: MULTIVITAMINS, THERA 1 EACH TAB PO SCH (11:22)
[2017-10-12] MEDS ORDERED: MORPHINE SULFATE 4 MG/ML SYRINGE IVP ONE (16:33)
[2017-10-12] MEDS: MORPHINE SULFATE 4 MG/ML SYRINGE IVP PRN (20:22)
[2017-10-13] MEDS: PROCHLORPERAZINE 10 MG TAB PO SCH ×5 (00:27→23:46)
[2017-10-13] MEDS: MORPHINE SULFATE 4 MG/ML SYRINGE IVP PRN ×5 (00:27→21:32)
[2017-10-13] MEDS: SODIUM CHLORIDE 0.9% 1,000 ML IV SCH ×2 (07:44→17:35)
[2017-10-13] MEDS: SYMBICORT 80-4.5 MCG INHALER INHALATION SCH ×2 (07:55→19:25)
--- NOTE | 2017-10-13 08:02 | P.PN ---
Subjective Progress Note Date: 10/12/17 This patient is a 72-year-old male who was admitted to hospital with intractable headache pain yesterday evening. He was seen in neurology consultation yesterday and was felt to have findings of bilateral occipital neuritis. We have recommended the patient undergo an occipital nerve block procedure to be done by anesthesia this morning. We are still awaiting for the procedure to be completed. He is to continue with his current medications. We had recommended the patient undergo an occipital nerve block procedure today but he was unable to have this procedure done. We will check with nursing staff to see if this can be arranged for tomorrow morning. Overall his headache symptoms and pain have remained relatively stable and controlled with his current pain medications. We will have nursing staff contact anesthesia to make sure he is on their schedule for nerve block procedure. According to the nursing staff this evening the patient was seen by anesthesia Dr. Gaspar who states he will only be able to do the occipital nerve block procedure on Saturday. We will leave it up to the patient if he would want to remain here to have this nerve block procedure done or to be discharge and to have this arranged as outpatient. Neurologically he is doing about the same in terms of his overall headache and pain management. We will continue close follow-up with the patient during this admission. Objective - Vital Signs Vital signs: Vital Signs Temp 99.0 F 10/12/17 15:00 Pulse 73 10/12/17 15:00 Resp 16 10/12/17 15:00 BP 121/53 10/12/17 15:00 Pulse Ox 95 10/12/17 15:00 Intake & Output 10/12/17 10/12/17 10/13/17 06:59 18:59 06:59 Other: # Voids 2 2 - Exam Physical examination: PHYSICAL EXAMINATION: Patient is resting comfortably in bed. VITAL SIGNS: Blood pressure is [121/53]. Heart rate is [73]. Respiration is [16] . Temperature is [99.0]. HEENT: Head is atraumatic, neck is supple, there were no carotid bruits. CHEST: Lungs are clear to auscultation and percussion. CARDIAC: S1, S2 normal rate and rhythm. There is no murmur. ABDOMEN: Soft and nontender. Bowel sounds are present. EXTREMITIES: There is no pedal edema. Peripheral pulses are present. Neurological examination: Patient's neurological examination is unchanged from yesterday. - Labs CBC & Chem 7: 10/10/17 11:00 10/12/17 08:02 Labs: Abnormal Lab Results - Last 24 Hours (Table) 10/12/17 Range/Units 08:02 Creatinine 0.47 L (0.66-1.25) mg/dL Total Protein 5.7 L (6.3-8.2) g/dL Albumin 3.1 L (3.5-5.0) g/dL Assessment and Plan (1) Occipital neuritis Current Visit: Yes Status: Acute Code(s): M54.81 - OCCIPITAL NEURALGIA SNOMED Code(s): 14395461 (2) Bundle branch block Current Visit: Yes Status: Acute Code(s): I45.4 - NONSPECIFIC INTRAVENTRICULAR BLOCK SNOMED Code(s): 5028192 (3) Bundle branch block Current Visit: Yes Status: Acute Code(s): I45.4 - NONSPECIFIC INTRAVENTRICULAR BLOCK SNOMED Code(s): 6681523 (4) Weight loss Current Visit: Yes Status: Acute Code(s): R63.4 - ABNORMAL WEIGHT LOSS SNOMED Code(s): 34503412 (5) Non-STEMI (non-ST elevated myocardial infarction) Current Visit: No Status: Acute Code(s): I21.4 - NON-ST ELEVATION (NSTEMI) MYOCARDIAL INFARCTION SNOMED Code(s): 918740065 (6) Headache, chronic migraine without aura Current Visit: No Status: Chronic Code(s): G43.709 - CHRONIC MIGRAINE W/O AURA, NOT INTRACTABLE, W/O STAT MIGR SNOMED Code(s): 47894502 Plan: This patient is a 72-year-old male with history of chronic headache pain. He was brought into the hospital due to intractable headaches. He has been treated with multiple injections and therapies to his head and neck region by Dr. Roach. He has undergone injections to the back and lumbar spine and cervical spine in the past. He does have evidence today of bilateral occipital neuritis. We are recommending that he undergo an occipital nerve block procedure for treatment. He is agreeable and we will begin requisition for anesthesia to perform this tomorrow for him. Patient was unable to have occipital nerve block procedure done today and we will retry again tomorrow morning. We have instructed the nursing staff to contact anesthesia to see if this can be finalized and taking care of tomorrow for him. The patient states he was seen by Dr. Gaspar today and he would only be able to perform the occipital nerve block procedure on Saturday. We will leave it up to the patient if he would like to wait her to have this done as an outpatient procedure. His headache pain otherwise seems to be doing about the same. We will continue close neurological follow-up for the patient during this admission. His overall prognosis at this time remains very guarded.
[2017-10-13] MEDS: PANTOPRAZOLE 40 MG/10 ML VIAL IV SCH (09:59)
[2017-10-13] MEDS: MULTIVITAMINS, THERA 1 EACH TAB PO SCH (11:50)
[2017-10-13] MEDS: KETOROLAC 30 MG/ML 1 ML VIAL IVP PRN (19:46)
--- NOTE | 2017-10-13 23:46 | P.PN ---
Subjective Progress Note Date: 10/12/17 Principal diagnosis: Occipital neuritis. This is a history of physical 72-year-old white female who has the last 3-4 days had intractable nausea and vomiting with significant migraine headache. He hasn't underlying history of chronic headache and has had COPD elements in the past also. Poor by mouth intake is noted with weight loss. Yesterday, he was brought in with his and he was appropriately evaluated in the emergency room after triage in my office. The patient otherwise has been given morphine with his fentanyl patch and is now stabilizing. Rehydration is noted and he seems less nauseated at this time. Poor appetite is otherwise noted. He currently is a nonsmoker for many many years. 10/12/2017 Patient is still complaining of headache. No fever no chills. Neurology is planning for and occipital nerve block. Continued on pain management currently. No chest pain or shortness of breath. Nausea improved. No vomiting. All other review of systems negative except the above Current medications reviewed. Objective - Vital Signs Vital signs: Vital Signs Temp 99.0 F 10/12/17 15:00 Pulse 73 10/12/17 15:00 Resp 16 10/12/17 15:00 BP 121/53 10/12/17 15:00 Pulse Ox 95 10/12/17 15:00 Intake & Output 10/11/17 10/12/17 10/12/17 18:59 06:59 18:59 Intake Total 1000 Balance 1000 Weight 53.07 kg Intake: Intake, IV Titration 800 Amount Sodium Chloride 0.9% 1, 800 000 ml @ 100 mls/hr IV . Q10H [facility] Rx#:[id number] Oral 200 Other: # Voids 2 2 - Exam PHYSICAL EXAMINATION: Patient is lying in the bed comfortably, mild distress, awake alert and oriented.. HEENT: Normocephalic. Neck is supple. Pupils reactive. Nostrils clear. Oral cavity is moist. Ears reveal no drainage. Neck reveals no JVD, carotid bruits, or thyromegaly. CHEST EXAMINATION: Trachea is central. Symmetrical expansion. Lung castellanos clear to auscultation and percussion. CARDIAC: Normal S1, S2 with no gallops. No murmurs ABDOMEN: Soft. Bowel sounds normal. No organomegaly. No abdominal bruits. Extremities: reveal no edema. No clubbing or cyanosis Neurologically awake, alert, oriented x3 with well-coordinated movements. No focal deficits noted Skin: No rash or skin lesions. Psychiatric: Coperative. Nonsuicidal Musculoskeletal: No joint swelling or deformity. Normal range of motion. - Labs CBC & Chem 7: 10/10/17 11:00 10/12/17 08:02 Labs: Abnormal Lab Results - Last 24 Hours (Table) 10/12/17 Range/Units 08:02 Creatinine 0.47 L (0.66-1.25) mg/dL Total Protein 5.7 L (6.3-8.2) g/dL Albumin 3.1 L (3.5-5.0) g/dL Assessment and Plan Assessment: Headache likely secondary to occipital neuritis. Intractable headache Nausea and vomiting COPD GERD History of GI bleed History of [place] bladder CA with BCG treatment, testicular ca with rt orchiectomy and radiation Chronic back pain History of breath spells he Plan: Patient will be continued on current pain medications including Tylenol 3, Toradol, fentanyl patch and follow closely. Neurology is on board. Planning for occipital nerve block. Otherwise continue the current management and follow closely. Time with Patient: Greater than 30
--- NOTE | 2017-10-13 23:47 | P.PN ---
Subjective Progress Note Date: 10/13/17 Principal diagnosis: Occipital neuritis. This is a history of physical 72-year-old white female who has the last 3-4 days had intractable nausea and vomiting with significant migraine headache. He hasn't underlying history of chronic headache and has had COPD elements in the past also. Poor by mouth intake is noted with weight loss. Yesterday, he was brought in with his and he was appropriately evaluated in the emergency room after triage in my office. The patient otherwise has been given morphine with his fentanyl patch and is now stabilizing. Rehydration is noted and he seems less nauseated at this time. Poor appetite is otherwise noted. He currently is a nonsmoker for many many years. 10/12/2017 Patient is still complaining of headache. No fever no chills. Neurology is planning for and occipital nerve block. Continued on pain management currently. No chest pain or shortness of breath. Nausea improved. No vomiting. 10/13/2017 Headache is fairly controlled with medications. Patient is lying in the bed comfortably. Pending nerve block injection. possibly on Saturday. All other review of systems negative except the above Current medications reviewed. Objective - Vital Signs Vital signs: Vital Signs Temp 97.7 F 10/13/17 15:00 Pulse 78 10/13/17 15:00 Resp 20 10/13/17 15:00 BP 145/78 10/13/17 15:00 Pulse Ox 96 10/13/17 15:00 Intake & Output 10/13/17 10/13/17 10/14/17 06:59 18:59 06:59 Intake Total 960 200 Balance 960 200 Intake: Intake, IV Titration 960 Amount Sodium Chloride 0.9% 1, 960 000 ml @ 120 mls/hr IV . Q8H20M [facility] Rx#:[id number] Oral 200 Other: # Voids 2 2 - Exam PHYSICAL EXAMINATION: Patient is lying in the bed comfortably, mild distress, awake alert and oriented.. HEENT: Normocephalic. Neck is supple. Pupils reactive. Nostrils clear. Oral cavity is moist. Ears reveal no drainage. Neck reveals no JVD, carotid bruits, or thyromegaly. CHEST EXAMINATION: Trachea is central. Symmetrical expansion. Lung castellanos clear to auscultation and percussion. CARDIAC: Normal S1, S2 with no gallops. No murmurs ABDOMEN: Soft. Bowel sounds normal. No organomegaly. No abdominal bruits. Extremities: reveal no edema. No clubbing or cyanosis Neurologically awake, alert, oriented x3 with well-coordinated movements. No focal deficits noted Skin: No rash or skin lesions. Psychiatric: Coperative. Nonsuicidal Musculoskeletal: No joint swelling or deformity. Normal range of motion. - Labs CBC & Chem 7: 10/10/17 11:00 10/12/17 08:02 Assessment and Plan Assessment: Headache likely secondary to occipital neuritis. Intractable headache Nausea and vomiting COPD GERD History of GI bleed History of [place] bladder CA with BCG treatment, testicular ca with rt orchiectomy and radiation Chronic back pain History of breath spells he Plan: Patient will be continued on current pain medications including Tylenol 3, Toradol, fentanyl patch and follow closely. Neurology is on board. Planning for occipital nerve block. Otherwise continue the current management and follow closely.
--- NOTE | 2017-10-14 00:57 | P.PN ---
Subjective Progress Note Date: 10/13/17 This patient is a 72-year-old male who was admitted to hospital with intractable headache pain yesterday evening. He was seen in neurology consultation yesterday and was felt to have findings of bilateral occipital neuritis. We have recommended the patient undergo an occipital nerve block procedure to be done by anesthesia this morning. We are still awaiting for the procedure to be completed. He is to continue with his current medications. We had recommended the patient undergo an occipital nerve block procedure today but he was unable to have this procedure done. We will check with nursing staff to see if this can be arranged for tomorrow morning. Overall his headache symptoms and pain have remained relatively stable and controlled with his current pain medications. We will have nursing staff contact anesthesia to make sure he is on their schedule for nerve block procedure. According to the nursing staff this evening the patient was seen by anesthesia Dr. Gaspar who states he will only be able to do the occipital nerve block procedure on Saturday. We will leave it up to the patient if he would want to remain here to have this nerve block procedure done or to be discharge and to have this arranged as outpatient. The patient will be able to have his occipital nerve blood procedure done tomorrow. Instructed nursing staff to be checked with anesthesia tomorrow morning. Neurologically he is doing about the same in terms of his overall headache and pain management. We will continue close follow-up with the patient during this admission. Objective - Vital Signs Vital signs: Vital Signs Temp 97.9 F 10/13/17 05:50 Pulse 74 10/13/17 05:50 Resp 16 10/13/17 05:50 BP 133/67 10/13/17 05:50 Pulse Ox 94 L 10/13/17 05:50 Intake & Output 10/12/17 10/13/17 10/13/17 18:59 06:59 18:59 Intake Total 960 Balance 960 Intake: Intake, IV Titration 960 Amount Sodium Chloride 0.9% 1, 960 000 ml @ 120 mls/hr IV . Q8H20M [facility] Rx#:[id number] Other: # Voids 2 2 - Exam Physical examination: PHYSICAL EXAMINATION: Patient is resting comfortably in bed. VITAL SIGNS: Blood pressure is [145/78]. Heart rate is [78]. Respiration is [20] . Temperature is [97.7]. HEENT: Head is atraumatic, neck is supple, there were no carotid bruits. CHEST: Lungs are clear to auscultation and percussion. CARDIAC: S1, S2 normal rate and rhythm. There is no murmur. ABDOMEN: Soft and nontender. Bowel sounds are present. EXTREMITIES: There is no pedal edema. Peripheral pulses are present. Neurological examination: Patient's neurological examination is unchanged from yesterday. - Labs CBC & Chem 7: 10/10/17 11:00 10/12/17 08:02 Labs: Abnormal Lab Results - Last 24 Hours (Table) 10/12/17 Range/Units 08:02 Creatinine 0.47 L (0.66-1.25) mg/dL Total Protein 5.7 L (6.3-8.2) g/dL Albumin 3.1 L (3.5-5.0) g/dL Assessment and Plan (1) Occipital neuritis Current Visit: Yes Status: Acute Code(s): M54.81 - OCCIPITAL NEURALGIA SNOMED Code(s): 84676095 (2) Bundle branch block Current Visit: Yes Status: Acute Code(s): I45.4 - NONSPECIFIC INTRAVENTRICULAR BLOCK SNOMED Code(s): 1785379 (3) Bundle branch block Current Visit: Yes Status: Acute Code(s): I45.4 - NONSPECIFIC INTRAVENTRICULAR BLOCK SNOMED Code(s): 4837486 (4) Weight loss Current Visit: Yes Status: Acute Code(s): R63.4 - ABNORMAL WEIGHT LOSS SNOMED Code(s): 48737628 (5) Non-STEMI (non-ST elevated myocardial infarction) Current Visit: No Status: Acute Code(s): I21.4 - NON-ST ELEVATION (NSTEMI) MYOCARDIAL INFARCTION SNOMED Code(s): 313952087 (6) Headache, chronic migraine without aura Current Visit: No Status: Chronic Code(s): G43.709 - CHRONIC MIGRAINE W/O AURA, NOT INTRACTABLE, W/O STAT MIGR SNOMED Code(s): 06906695 Plan: This patient is a 72-year-old male with history of chronic headache pain. He was brought into the hospital due to intractable headaches. He has been treated with multiple injections and therapies to his head and neck region by Dr. Roach. He has undergone injections to the back and lumbar spine and cervical spine in the past. He does have evidence today of bilateral occipital neuritis. We are recommending that he undergo an occipital nerve block procedure for treatment. He is agreeable and we will begin requisition for anesthesia to perform this tomorrow for him. Patient was unable to have occipital nerve block procedure done today and we will retry again tomorrow morning. We have instructed the nursing staff to contact anesthesia to see if this can be finalized and taking care of tomorrow for him. The patient states he was seen by Dr. Gaspar today and he would only be able to perform the occipital nerve block procedure on Saturday. We will leave it up to the patient if he would like to wait her to have this done as an outpatient procedure. The patient will undergo occipital nerve block procedure tomorrow morning. We have instructed the nursing staff to inform anesthesia once again. His headache pain otherwise seems to be doing about the same. We will continue close neurological follow-up for the patient during this admission. We will wait to see how the patient responds to the occipital nerve block procedure tomorrow. Hopefully if his pain levels are significantly improved he may be considered for discharge home. His overall prognosis at this time remains very guarded.
[2017-10-14] MEDS: SODIUM CHLORIDE 0.9% 1,000 ML IV SCH ×2 (01:48→08:11)
[2017-10-14] MEDS: MORPHINE SULFATE 4 MG/ML SYRINGE IVP PRN ×4 (03:00→22:45)
[2017-10-14] MEDS: PROCHLORPERAZINE 10 MG TAB PO SCH ×4 (06:30→23:12)
[2017-10-14] MEDS: PANTOPRAZOLE 40 MG/10 ML VIAL IV SCH (07:59)
--- NOTE | 2017-10-14 07:59 | P.PN ---
Subjective Progress Note Date: 10/14/17 Principal diagnosis: Continuing care/intractable migraine. This is a continue progress on a 70-year-old white male patient with intractable migraine and COPD. After being given IV medication for the last several days he actually is much more bearable. Clinically significantly improved except for some contact dermatitis. No voiding difficulties are stated. Objective - Vital Signs Vital signs: Vital Signs Temp 98.3 F 10/14/17 07:09 Pulse 60 10/14/17 07:09 Resp 18 10/14/17 07:09 BP 133/69 10/14/17 07:09 Pulse Ox 92 L 10/14/17 07:09 Intake & Output 10/13/17 10/14/17 10/14/17 18:59 06:59 18:59 Intake Total 200 Balance 200 Intake: Oral 200 Other: # Voids 2 2 - Constitutional General appearance: Present: thin - EENT Eyes: Absent: abnormal pupil - Neck Neck: Present: lymphadenopathy - Respiratory Respiratory: bilateral: diminished - Cardiovascular Rhythm: regular Heart sounds: normal: S1, S2 Abnormal Heart Sounds: Absent: S3 Gallop - Gastrointestinal General gastrointestinal: Present: soft. Absent: tenderness - Neurologic Neurologic: Present: CNII-XII intact - Musculoskeletal Musculoskeletal: Present: gait normal - Labs CBC & Chem 7: 10/10/17 11:00 10/12/17 08:02 Assessment and Plan (1) Intractable migraine Current Visit: Yes Status: Acute Code(s): G43.919 - MIGRAINE, UNSP, INTRACTABLE, WITHOUT STATUS MIGRAINOSUS SNOMED Code(s): 252404497 (2) Weight loss Current Visit: Yes Status: Acute Code(s): R63.4 - ABNORMAL WEIGHT LOSS SNOMED Code(s): 04204712 (3) Hx of nicotine dependence Current Visit: No Status: Acute Code(s): Z87.891 - PERSONAL HISTORY OF NICOTINE DEPENDENCE SNOMED Code(s): 686444605 (4) Nausea & vomiting Current Visit: No Status: Resolved Code(s): R11.2 - NAUSEA WITH VOMITING, UNSPECIFIED SNOMED Code(s): 90911385 Plan: Await occipital nerve block today. Anticipate discharge in next 24 hours. KVO IV at this time. See orders otherwise.
[2017-10-14] MEDS ORDERED: IV FLUID CONTINUATION 1,000 ML IV ONE (09:00)
[2017-10-14] MEDS ORDERED: MIDAZOLAM 2 MG/2 ML VIAL IV ONE (09:05)
[2017-10-14] MEDS ORDERED: fentaNYL (PF) 50 MCG/ML 2 ML AMP IV ONE (09:05)
[2017-10-14] MEDS ORDERED: ROPIVACAINE 5 MG/ML 30 ML VIAL MISCELLANE ONE (09:10)
[2017-10-14] MEDS ORDERED: TRIAMCINOLONE ACETONIDE 40 MG/ML 1 ML VIAL INTRAARTIC ONE (09:10)
--- NOTE | 2017-10-14 09:34 | P.PCN ---
Date of Procedure: 10/14/17 Procedure(s) Performed: Preoperative diagnoses= 1- bilateral Greater occipital neuralgia Postoperative diagnoses= same as preoperative diagnosis. Procedure= Bilateral Greater occipital nerve block Anesthesia= moderate sedation with Versed 2 mg and fentanyl 100 micrograms . Estimated blood loss=minimal. Procedure indication= the patient had a history of severe chronic neck pain , and headache, diagnosed with occipital neuralgia exam was positive for severe tenderness over the occipital nerve bilaterally, she will be a good candidate occipital nerve block, patient failed conservative management Procedure description= the patient was seen and identified in the preoperative holding area, risks and benefits and alternative of the procedure and possible complications discussed with the patient, and he agreed with the preceding, patient signed the consent, an IV was started, and vital signs were monitored and were stable throughout the procedure, patient was placed in the sitting position or table and the neck area was prepped and draped with a sterile fashion, vital signs were closely monitored during the procedure, 25-gauge needle advanced 1 inch lateral to the occipital protuberance on the right side , at the location of the right occipital nerve , then after negative aspiration for heme and CSF and there was no paresthesia during the injection, 6 ml of Robivacaine 0.5% and 20 mg of Kenalog injected after negative aspiration, the needle removed, and the entire same procedure was repeated for the Greater occipital nerve. Patient tolerated the procedure well without any complication, The patient returned to supine position after the back was cleaned and a Band- Aid applied, the patient transported to recovery room in stable condition and he was monitored for 30 minutes before he was discharged home and then patient was reexamined before going home and patient was discharged in stable condition and patient will follow up with the pain clinic in a f
[2017-10-14] MEDS: LORATADINE 10 MG TAB PO SCH (11:00)
[2017-10-14] MEDS: SYMBICORT 80-4.5 MCG INHALER INHALATION SCH ×2 (11:14→19:19)
[2017-10-14] MEDS: MULTIVITAMINS, THERA 1 EACH TAB PO SCH (11:23)
[2017-10-15 06:03] VITALS: BP 146/68; PULSE 66; RESP 14; TEMP 96.9
[2017-10-15] MEDS: PROCHLORPERAZINE 10 MG TAB PO SCH ×2 (06:15→13:02)
[2017-10-15] MEDS: SYMBICORT 80-4.5 MCG INHALER INHALATION SCH (07:36)
[2017-10-15] MEDS: PANTOPRAZOLE 40 MG/10 ML VIAL IV SCH (09:20)
[2017-10-15] MEDS: MULTIVITAMINS, THERA 1 EACH TAB PO SCH (09:20)
[2017-10-15] MEDS: LORATADINE 10 MG TAB PO SCH (09:20)
[2017-10-15] MEDS: SODIUM CHLORIDE 0.9% 1,000 ML IV SCH (10:19)
--- NOTE | 2017-10-15 12:53 | P.DS ---
Providers Date of admission: 10/10/17 14:29 Attending physician: Lul Garcia Consults: 10/10/17 14:07 Consult Physician Stat Consulting Provider: Vania Gaxiola Consult Reason/Comments: Intractable migraine Do you want consulting provider notified?: Yes 10/11/17 08:00 Consult to Anesthesia Routine Consulting Provider: Anesthesia,Services Consult Reason/Comments: Patient with bilateral occipital neuritis. Needs b/ l occipital Nerve Block 10/13/17 13:06 Consult Physician Stat Consulting Provider: April Gaspar Consult Reason/Comments: pt to have occipital nerve block on 10/14, saturday Do you want consulting provider notified?: Already Contacted Primary care physician: Lul Garcia - Discharge Diagnosis(es) (1) Intractable migraine Current Visit: Yes Status: Acute (2) Weight loss Current Visit: Yes Status: Acute (3) Hx of nicotine dependence Current Visit: No Status: Acute (4) Nausea & vomiting Current Visit: No Status: Resolved Hospital Course: This discharge summary 72-year-old white male essentially admitted from intractable migraine. After rehydration and appropriate pain control, he underwent occipital nerve block which has stabilized the patient. He will be discharged in stable condition to follow-up with me in about one week. Does not tolerate diet without difficulty and will follow-up with me as stated above. Patient Condition at Discharge: Good Plan - Discharge Summary Discharge Rx Participant: Yes New Discharge Prescriptions: New Acetaminophen-Codeine 300-30mg [Tylenol w/codeine #3] 1 each PO Q4HR PRN #60 tab PRN Reason: Moderate Pain Ibuprofen [Motrin] 400 mg PO Q6HR PRN tab PRN Reason: Mild Pain Or Fever > 100.5 Loratadine [Claritin] 10 mg PO DAILY #30 tab Continue Fluticasone/Salmeterol [Advair 250-50 Diskus] 1 puff INHALATION RT-DAILY fentaNYL 50MCG/HR PATCH [Duragesic 50MCG/HR] 50 mcg TRANSDERM Q48H Albuterol Nebulized [Ventolin Nebulized] 2.5 mg INHALATION RT-Q4H PRN PRN Reason: Shortness Of Breath Prochlorperazine [Compazine] 10 mg PO Q6H Multivitamins, Thera [Multivitamin (formulary)] 1 tab PO DAILY Acetaminophen [Tylenol] 1,000 mg PO Q4-6H PRN PRN Reason: Pain Or Fever > 100.5 SUMAtriptan SUCCINATE [Onzetra Xsail] 1 inh EA NOSTRIL DAILY PRN PRN Reason: Migraine Headache Discharge Medication List Fluticasone/Salmeterol [Advair 250-50 Diskus] 1 puff INHALATION RT-DAILY [History] fentaNYL 50MCG/HR PATCH [Duragesic 50MCG/HR] 50 mcg TRANSDERM Q48H 05/25/14 [ History] Albuterol Nebulized [Ventolin Nebulized] 2.5 mg INHALATION RT-Q4H PRN 09/15/15 [ History] Prochlorperazine [Compazine] 10 mg PO Q6H 07/22/17 [History] Acetaminophen [Tylenol] 1,000 mg PO Q4-6H PRN 10/10/17 [History] Multivitamins, Thera [Multivitamin (formulary)] 1 tab PO DAILY 10/10/17 [History ] SUMAtriptan SUCCINATE [Onzetra Xsail] 1 inh EA NOSTRIL DAILY PRN 10/10/17 [ History] Acetaminophen-Codeine 300-30mg [Tylenol w/codeine #3] 1 each PO Q4HR PRN #60 tab 10/15/17 [Rx] Ibuprofen [Motrin] 400 mg PO Q6HR PRN tab 10/15/17 [Rx] Loratadine [Claritin] 10 mg PO DAILY #30 tab 10/15/17 [Rx] Follow up Appointment(s)/Referral(s): Lul Garcia MD [Primary Care Provider] - 1-2 days Patient Instructions/Handouts: Migraine Headache (GEN)
--- NOTE | 2017-10-16 00:15 | P.PN ---
Subjective Progress Note Date: 10/14/17 This patient is a 72-year-old male who was admitted to hospital with intractable headache pain yesterday evening. He was seen in neurology consultation yesterday and was felt to have findings of bilateral occipital neuritis. We have recommended the patient undergo an occipital nerve block procedure to be done by anesthesia this morning. We are still awaiting for the procedure to be completed. He is to continue with his current medications. We had recommended the patient undergo an occipital nerve block procedure today but he was unable to have this procedure done. We will check with nursing staff to see if this can be arranged for tomorrow morning. Overall his headache symptoms and pain have remained relatively stable and controlled with his current pain medications. We will have nursing staff contact anesthesia to make sure he is on their schedule for nerve block procedure. According to the nursing staff this evening the patient was seen by anesthesia Dr. Gaspar who states he will only be able to do the occipital nerve block procedure on Saturday. We will leave it up to the patient if he would want to remain here to have this nerve block procedure done or to be discharge and to have this arranged as outpatient. The patient was able to complete bilateral occipital nerve block procedure today which was performed by anesthesia. The patient states he has noted significant improvement with his headaches following the procedure this morning. The patient is going to be neurologically stable for discharge home tomorrow morning. He may follow-up in the outpatient neurology clinic in 3-4 weeks. We will continue close follow-up with the patient during this admission. Objective - Vital Signs Vital signs: Vital Signs Temp 97.3 F L 10/13/17 21:34 Pulse 70 10/13/17 21:34 Resp 18 10/13/17 21:34 BP 143/73 10/13/17 21:34 Pulse Ox 92 L 10/13/17 21:34 Intake & Output 10/13/17 10/14/17 10/14/17 18:59 06:59 18:59 Intake Total 200 Balance 200 Intake: Oral 200 Other: # Voids 2 2 - Exam Physical examination: PHYSICAL EXAMINATION: Patient is resting comfortably in bed. VITAL SIGNS: Blood pressure is [145/77]. Heart rate is [70]. Respiration is [18] . Temperature is [98.3]. HEENT: Head is atraumatic, neck is supple, there were no carotid bruits. CHEST: Lungs are clear to auscultation and percussion. CARDIAC: S1, S2 normal rate and rhythm. There is no murmur. ABDOMEN: Soft and nontender. Bowel sounds are present. EXTREMITIES: There is no pedal edema. Peripheral pulses are present. Neurological examination: Patient's neurological examination is unchanged from yesterday. - Labs CBC & Chem 7: 10/10/17 11:00 10/12/17 08:02 Assessment and Plan (1) Occipital neuritis Status: Acute Code(s): M54.81 - OCCIPITAL NEURALGIA SNOMED Code(s): 40308010 (2) Bundle branch block Status: Acute Code(s): I45.4 - NONSPECIFIC INTRAVENTRICULAR BLOCK SNOMED Code(s): 6532126 (3) Bundle branch block Status: Acute Code(s): I45.4 - NONSPECIFIC INTRAVENTRICULAR BLOCK SNOMED Code(s): 2111448 (4) Weight loss Status: Acute Code(s): R63.4 - ABNORMAL WEIGHT LOSS SNOMED Code(s): 10062974 (5) Non-STEMI (non-ST elevated myocardial infarction) Status: Acute Code(s): I21.4 - NON-ST ELEVATION (NSTEMI) MYOCARDIAL INFARCTION SNOMED Code(s): 486403182 (6) Headache, chronic migraine without aura Status: Chronic Code(s): G43.709 - CHRONIC MIGRAINE W/O AURA, NOT INTRACTABLE , W/O STAT MIGR SNOMED Code(s): 79652692 Plan: This patient is a 72-year-old male with history of chronic headache pain. He was brought into the hospital due to intractable headaches. He has been treated with multiple injections and therapies to his head and neck region by Dr. Roach. He has undergone injections to the back and lumbar spine and cervical spine in the past. He does have evidence today of bilateral occipital neuritis. We are recommending that he undergo an occipital nerve block procedure for treatment. He is agreeable and we will begin requisition for anesthesia to perform this tomorrow for him. Patient was unable to have occipital nerve block procedure done today and we will retry again tomorrow morning. We have instructed the nursing staff to contact anesthesia to see if this can be finalized and taking care of tomorrow for him. The patient states he was seen by Dr. Gaspar today and he would only be able to perform the occipital nerve block procedure on Saturday morning. We will leave it up to the patient if he would like to wait her to have this done as an outpatient procedure. The patient was able to have bilateral occipital nerve block procedure done this morning by anesthesia. He has noted a significant improvement with the degree of headache pain being significantly reduce. He is doing quite well overall and is being considered for possible discharge home. The patient may follow-up in the outpatient neurology clinic in 3-4 weeks as needed. We will continue close neurological follow-up for the patient during this admission. We will wait to see how the patient responds to the occipital nerve block procedure tomorrow. Hopefully if his pain levels are significantly improved he may be considered for discharge home. His overall prognosis at this time remains very guarded.
== END 2017-10-15 14:33 | disposition home or self-care (01) | DRG 103 ==
LOC: EC 09:56 → 4MS4W 14:29 → OBSVTOIN 14:29
PROVIDERS: ADMIT Family Medicine; ATTEND Family Medicine
PROC: 3E0R33Z Introduction of Anti-inflammatory into Spinal Canal, Percutaneous Approach (ICD-10-PCS; principal; 2017-10-14 08:45)
PROC: 3E0R3BZ Introduction of Anesthetic Agent into Spinal Canal, Percutaneous Approach (ICD-10-PCS; principal; 2017-10-14 08:45)
DX: G43.719 Chronic migraine without aura, intractable, without status migrainosus (principal); F17.200 Nicotine dependence, unspecified, uncomplicated; G89.29 Other chronic pain; I45.4 Nonspecific intraventricular block; J44.9 Chronic obstructive pulmonary disease, unspecified; K21.9 Gastro-esophageal reflux disease without esophagitis; L25.9 Unspecified contact dermatitis, unspecified cause; R63.4 Abnormal weight loss; E86.0 Dehydration; I25.2 Old myocardial infarction; Z80.0 Family history of malignant neoplasm of digestive organs; Z80.3 Family history of malignant neoplasm of breast; Z83.3 Family history of diabetes mellitus; Z85.47 Personal history of malignant neoplasm of testis; Z85.51 Personal history of malignant neoplasm of bladder; Z79.891 Long term (current) use of opiate analgesic; Z79.899 Other long term (current) drug therapy; Z91.041 Radiographic dye allergy status; Z91.018 Allergy to other foods; Z88.0 Allergy status to penicillin; Z88.2 Allergy status to sulfonamides
CPT/HCPCS: 36415; 64405; 70450; 80053; 81003; 82150; 83690; 85025; 93005; 94640; 96361; 96374; 96375; 99285

== ENCOUNTER → 2017-10-30 | Outpatient (CLI) | payer MEDICAID, MEDICARE ==
--- NOTE | 2017-10-30 18:14 | US ---
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 EXAM MEASUREMENTS: Right Kidney: 8.7 x 4.4 x 4.8 cm Left Kidney: 10.0 x 4.5 x 4.8cm cm Patient has long ribcage with no intercostal window to scan kidneys. Technically difficult study. Right Kidney: No hydronephrosis or masses seen Left Kidney: No hydronephrosis or masses seen Bladder: wnl IMPRESSION: No evidence of renal mass or obstruction. No bladder mass.
== END | disposition home or self-care (01) ==
LOC: RADUSMAIN 15:42
PROVIDERS: ATTEND Urology
DX: C67.2 Malignant neoplasm of lateral wall of bladder (principal)
CPT/HCPCS: 76770

== ENCOUNTER → 2017-12-16 | Outpatient (CLI) | payer MEDICAID, MEDICARE ==
[2017-12-16 15:07] VITALS: BP 156/95; PULSE 100; RESP 16
--- NOTE | 2017-12-16 15:40 | P.PAINPG ---
Subjective Progress Note Date: 12/16/17 This is a follow-up visit for this 72 years old male , who was referred to [facility] pain clinic for occipital nerve block and possible radiofrequency ablation, patient was seen 2 months ago he was inpatient, and I did occipital nerve block which helped his headaches significantly, patient reported , that he was getting sphenopalatine ganglion block by Dr. Nevarez , and he get some relief at the beginning , they later on he had no benefit from it , and also patient currently following up with Dr. Bejarano, and his doing treatment on his low back, Objective - Vital Signs Vital signs: Vital Signs Temp Pulse 100 12/16/17 14:56 Resp 16 12/16/17 14:56 BP 156/95 12/16/17 14:56 Pulse Ox 95 12/16/17 14:56 Intake & Output 12/15/17 12/16/17 12/16/17 18:59 06:59 18:59 Weight 56.699 kg - Exam Physical Examinations : 1-Constitutiona : Cooperative , not in acute distress . 2- musculoskeltal : Cervical Spine motor stregnth in the deltoid and biceps, normal right side , normal Left side motor stregnth biceps and the wrist extensors normal right side ,normal left side . motor stregnth in the triceps muscle . normal Right side , normal Left side deep tendon reflexes normal at the biceps , normal at Brachioradialis , normal at triceps. positive cervical facet loading test . Assessment and Plan Plan: Assessment and plan= 1-chronic severe neck pain and headaches secondary to cervical spondylosis, with facet arthropathy without myelopathy And occipital neuralgia, discussed with the patient the treatment plan that we need to do diagnostic block, and later on we can proceed with the radiofrequency ablation , and explained to the patient that there is no need to follow up with multiple pain physicians Patient preferred to follow-up with Dr. Bejarano , and he will follow up with the [facility] pain clinic. Time with Patient: Less than 30 PQRS Measure Charge Sheet Measure #130: Documentation of Current Meds in Medical Chart: Patient's medications documented in chart Measure #226: Tobacco Use: Screen & Cessation Intervention: Pt not a tobacco user Measure #111: Pneumonia Vaccination: Pneumococcal vaccine administered or previously received Measure #47: Advance Care Plan: Advance care planning discussed & documented, pt chose/unable to give Measure #412: Opioid Treatment Agreement: No documentation of signed opioid treatment agreement Measure #408: Opioid Therapy Follow-up Evaluation: Patient had NO f/u eval minimum every 3 months during opioid therapy Measure #317: Preventitive Care & Scrn High Bld Press & F/U: Pre-hypertensive or hypertensive BP documented, pt will f/u with PCP Measure #128: Body Mass Index (BMI) Screening & Follow-up: BMI documented BELOW normal parameters - f/u documented Measure #131: Pain Assessment & Follow-up: Pain positive & plan documented, Follow-up PRN Measure #431: Unhealthy Alcohol Use Preventative Care & Scrn: Patient not identified as an unhealthy alcohol user PQRS Narrative: Smoking Status Former smoker Do You Want the Pneumonia No Vaccine AT THIS TIME? Blood Pressure 156/95 Pain Intensity [Bilateral 0 Posterior Neck] Scale Used Numeric (1 - 10) Hx Alcohol Use (MH) No Home Medications: Ambulatory Orders Fluticasone/Salmeterol [Advair 250-50 Diskus] 1 puff INHALATION RT-DAILY fentaNYL 50MCG/HR PATCH [Duragesic 50MCG/HR] 50 mcg TRANSDERM Q48H 05/25/14 Albuterol Nebulized [Ventolin Nebulized] 2.5 mg INHALATION RT-Q4H PRN 09/15/15 Prochlorperazine [Compazine] 10 mg PO Q6H PRN 07/22/17 Acetaminophen [Tylenol] 1,000 mg PO Q4-6H PRN 10/10/17 Multivitamins, Thera [Multivitamin (formulary)] 1 tab PO DAILY 10/10/17 SUMAtriptan SUCCINATE [Onzetra Xsail] 1 inh EA NOSTRIL DAILY PRN 10/10/17 Acetaminophen-Codeine 300-30mg [Tylenol w/codeine #3] 1 each PO Q4HR PRN #60 tab 10/15/17 Ibuprofen [Motrin] 400 mg PO Q6HR PRN tab 10/15/17 Loratadine [Claritin] 10 mg PO DAILY #30 tab 10/15/17 Controlled Substance Measures - Controlled Substance Measures Is patient prescribed a controlled substance at discharge?: No When asked, does pt state using other controlled substances?: No If prescribed controlled substance>3 days was MAPS reviewed?: No If Rx opioid, was Start Talking consent form obtained?: No If opioid is for acute pain is fill amount 7 days or less?: No Was information provided regarding opioid addiction?: No
== END | disposition home or self-care (01) ==
LOC: PNWHC3 13:40
PROVIDERS: ATTEND Specialist
DX: G89.29 Other chronic pain (principal); M47.812 Spondylosis without myelopathy or radiculopathy, cervical region; M46.92 Unspecified inflammatory spondylopathy, cervical region; M54.81 Occipital neuralgia; Z87.891 Personal history of nicotine dependence; Z79.51 Long term (current) use of inhaled steroids; Z79.899 Other long term (current) drug therapy
CPT/HCPCS: 99211

== ENCOUNTER 2018-01-22 10:10 | Emergency (ER) | payer MEDICAID, MEDICARE ==
[2018-01-22 10:23] VITALS: TEMP 98.7
[2018-01-22] MEDS ORDERED: SODIUM CHLORIDE 0.9% 1,000 ML IV ONE (10:24)
--- NOTE | 2018-01-22 10:30 | ED ---
General Adult HPI - General Chief complaint: Weakness Stated complaint: Dehydration Source: patient, family, EMS Mode of arrival: ambulatory Limitations: physical limitation - History of Present Illness Initial comments: Dictation was produced using [employer] dictation software. please excuse any grammatical, word or spelling errors. Chief Complaint: 72-year-old male with past medical history of cancer, COPD, GERD, GI bleed, DC presents with altered mental status. History of Present Illness: 72-year-old male presents with altered mental status. Since yesterday patient has been sleeping a lot. Patient has been dealing with chronic headaches for the past several weeks. He was evaluated by neurologist Dr. Cano. He was scheduled for a cervical block today. While at the surgery Center patient was given Versed and he became aggressive and slightly combative. The performed some of the procedure according to family member. Patient is a local place at this time. According to family member he does appear to be more tired than usual. Yesterday she slept for approximately 20 hours. The ROS documented in this emergency department record has been reviewed and confirmed by me. Those systems with pertinent positive or negative responses have been documented in the HPI. All other systems are other negative and/or noncontributory. - Related Data Home Medications Medication Instructions Recorded Confirmed Fluticasone/Salmeterol [Advair 1 puff INHALATION RT-DAILY 07/10/13 01/22/18 250-50 Diskus] fentaNYL 50MCG/HR PATCH [Duragesic 50 mcg TRANSDERM Q48H 05/25/14 01/22/18 50MCG/HR] Albuterol Nebulized [Ventolin 2.5 mg INHALATION RT-Q4H PRN 09/15/15 01/22/18 Nebulized] Multivitamins, Thera [Multivitamin 1 tab PO DAILY 10/10/17 01/22/18 (formulary)] Allergies Allergy/AdvReac Type Severity Reaction Status Date / Time chocolate flavor Allergy Unknown Verified 12/16/17 14:51 Iodinated Contrast- Oral and Allergy Anaphylaxis Verified 12/16/17 14:51 IV Dye [Iodinated Contrast Media - IV Dye] iodine Allergy Anaphylaxis Verified 12/16/17 14:51 Penicillins Allergy Anaphylaxis Verified 12/16/17 14:51 Sulfa (Sulfonamide Allergy Anaphylaxis Verified 12/16/17 14:51 Antibiotics) banana AdvReac HEADACHE Verified 12/16/17 14:51 gabapentin AdvReac Unknown Verified 01/22/18 10:23 tree nut [Nut] AdvReac HEADACHE Verified 12/16/17 14:51 yellow dye AdvReac HEADACHE Verified 12/16/17 14:51 Review of Systems ROS Statement: Those systems with pertinent positive or pertinent negative responses have been documented in the HPI. ROS Other: All systems not noted in ROS Statement are negative. Past Medical History Past Medical History: Cancer, COPD, GERD/Reflux, GI Bleed, Myocardial Infarction (DC) Additional Past Medical History / Comment(s): Recent 08/03/15 EGD with bx and colonoscopy with bx for upper abdominal pain and hematemesis,/vomiting, frequent severe migraines, bladder CA with BCG treatment, testicular ca with rt orchiectomy and radiation, chronic back pain, hiatel hernia, gastritis, bells palsy. Last Myocardial Infarction Date:: 05/25/14 History of Any Multi-Drug Resistant Organisms: None Reported Past Surgical History: Adenoidectomy, Appendectomy, Heart Catheterization, Hernia Repair, Orthopedic Surgery, Tonsillectomy Additional Past Surgical History / Comment(s): 08/03/15 EGD with negative BX and colonoscopy with polypectomy and BX-neg, 05/27/14 normal cardiac cath, several back sx including laminectomy, spinous process removed T11 and T12/cage and arturo , bilateral arthroscopic knee surgeries with one done twice, left/Right, thumb surgeries with rt one having titanium joint, L rotator cuff repair, several nasal polypectomies, RFA back, R/L inguinal hernia repairs.rt orchiectomy Past Anesthesia/Blood Transfusion Reactions: No Reported Reaction Past Psychological History: No Psychological Hx Reported Smoking Status: Former smoker Past Alcohol Use History: None Reported Past Drug Use History: None Reported - Past Family History Father Family Medical History: Cancer Additional Family Medical History / Comment(s): Father of stomach ca at the age of 65 yrs. Mother Family Medical History: No Reported History Additional Family Medical History / Comment(s): Mother of "old age". She was 83 yrs old Brother(s) Family Medical History: Diabetes Mellitus Sister(s) Family Medical History: Diabetes Mellitus Additional Family Medical History / Comment(s): breast ca General Exam - General Exam Comments Initial Comments: PHYSICAL EXAM: General Impression: Alert and oriented x3, not in acute distress, cachectic sick HEENT: Normocephalic atraumatic, extra-ocular movements intact, pupils equal and reactive to light bilaterally, mucous membranes moist. Cardiovascular: Heart regular rate and rhythm, S1&S2 audible, no murmurs, rubs or gallops Chest: Lungs clear to auscultation bilaterally, no rhonchi, no wheeze, no rales Abdomen: Bowel sounds present, abdomen soft, non-tender, non-distended, no organomegaly Musculoskeletal: Pulses present and equal in all extremities, no peripheral edema Motor: Power 5/5 bilaterally, no focal deficits noted Neurological: CN II-XII grossly intact, no focal motor or sensory deficits noted Skin: Intact with no visualized rashes Limitations: physical limitation Course Vital Signs 01/22/18 10:18 Temperature 98.7 F Pulse Rate 91 Respiratory 18 Rate Blood Pressure 138/76 O2 Sat by Pulse 92 L Oximetry Medical Decision Making - Medical Decision Making ED course: 72-year-old male presents with altered mental status. He was at the outpatient surgical center to have a cervical block performed. After given benzodiazepine she became aggressive and combative briefly. As upon arrival are within normal limits. Part of the procedure was completed. According to physician at the surgical center patient was given flumazenil. An intravenous fluids and antinausea medications.Laboratory evaluation obtained. CBC unremarkable. Coag panel unremarkable. Metabolic panel is unremarkable. Patient has a troponin of 0.155. Patient does have chronic troponin elevations. He does not have any symptoms of ACS. Denies any chest pain or shortness of breath. Patient given intravenous fluids. He is reevaluated. He is looking a lot better. Patient states he remembers the day. With the last couple days she states that he's been having bad nausea and vomiting. He states he hasn't been staying hydrated secondary to fear of vomiting. Patient tolerating coffee and water at bedside. Patient also tolerated a whole cup full of water and some keyanna crackers. Discussed with patient's primary care doctor who is amenable for patient be discharged. Patient reevaluated and continues to endorse no chest pain and no shortness of breath or other ACS-type equivalents. Patient's feeling well after intravenous fluids. Family and patient knows about his elevated troponin. It's been worked up before and he's had negative caths and negative cardiac workups. Patient's elevated troponin may be from slight muscle damage which is evident in his positive CKs. Patient warned that if he develops chest pain, shortness of breath, paresthesias to the jar shoulder that he should come to the emergency department for cardiac workup. Patient understands and is understandable and agreeable to disposition plan. EKG interpretation: Ventricular rate 82, normal sinus rhythm, PA interval 142, QS 108, QTc 448. No PA prolongation, no QTC prolongation, no ST or T-wave changes noted. EKG compared to 10/10/2017 showing no changes. Overall, this EKG is unremarkable - Lab Data Result diagrams: 01/22/18 10:54 01/22/18 10:54 Lab Results 01/22/18 01/22/18 01/22/18 Range/Units 10:54 10:54 10:54 WBC 7.5 (3.8-10.6) k/uL RBC 4.58 (4.30-5.90) m/uL Hgb 15.0 (13.0-17.5) gm/dL Hct 45.8 (39.0-53.0) % MCV 99.8 (80.0-100.0) fL MCH 32.8 (25.0-35.0) pg MCHC 32.8 (31.0-37.0) g/dL RDW 14.4 (11.5-15.5) % Plt Count 230 (150-450) k/uL Neutrophils % 89 % Lymphocytes % 6 % Monocytes % 4 % Eosinophils % 0 % Basophils % 0 % Neutrophils # 6.7 (1.3-7.7) k/uL Lymphocytes # 0.4 L (1.0-4.8) k/uL Monocytes # 0.3 (0-1.0) k/uL Eosinophils # 0.0 (0-0.7) k/uL Basophils # 0.0 (0-0.2) k/uL Macrocytosis Slight PT (9.0-12.0) sec INR (<1.2) APTT (22.0-30.0) sec Sodium (137-145) mmol/L Potassium (3.5-5.1) mmol/L Chloride (98-107) mmol/L Carbon Dioxide (22-30) mmol/L Anion Gap mmol/L BUN (9-20) mg/dL Creatinine (0.66-1.25) mg/dL Est GFR (CKD-EPI)AfAm (>60 ml/min/1.73 sqM) Est GFR (CKD-EPI)NonAf (>60 ml/min/1.73 sqM) Glucose (74-99) mg/dL POC Glucose (mg/dL) (75-99) mg/dL POC Glu Binding End Stitcher ID Calcium (8.4-10.2) mg/dL Total Bilirubin (0.2-1.3) mg/dL AST (17-59) U/L ALT (21-72) U/L Alkaline Phosphatase (38-126) U/L Ammonia 9 (<30) umol/L Total Creatine Kinase 326 H (55-170) U/L CK-MB (CK-2) 7.6 H (0.0-2.4) ng/mL CK-MB (CK-2) Rel Index 2.3 Troponin I 0.155 H* (0.000-0.034) ng/mL Total Protein (6.3-8.2) g/dL Albumin (3.5-5.0) g/dL Urine Color Urine Appearance (Clear) Urine pH (5.0-8.0) Ur Specific [place] (1.001-1.035) Urine Protein (Negative) Urine Glucose (UA) (Negative) Urine Ketones (Negative) Urine Blood (Negative) Urine Nitrite (Negative) Urine Bilirubin (Negative) Urine Urobilinogen (<2.0) mg/dL Ur Leukocyte Esterase (Negative) Urine Opiates Screen (NotDetected) Ur Oxycodone Screen (NotDetected) Urine Methadone Screen (NotDetected) Ur Propoxyphene Screen (NotDetected) Ur Barbiturates Screen (NotDetected) U Tricyclic Antidepress (NotDetected) Ur Phencyclidine Scrn (NotDetected) Ur Amphetamines Screen (NotDetected) U Methamphetamines Scrn (NotDetected) U Benzodiazepines Scrn (NotDetected) Urine Cocaine Screen (NotDetected) U Marijuana (THC) Screen (NotDetected) 01/22/18 01/22/18 01/22/18 Range/Units 10:54 10:54 11:35 WBC (3.8-10.6) k/uL RBC (4.30-5.90) m/uL Hgb (13.0-17.5) gm/dL Hct (39.0-53.0) % MCV (80.0-100.0) fL MCH (25.0-35.0) pg MCHC (31.0-37.0) g/dL RDW (11.5-15.5) % Plt Count (150-450) k/uL Neutrophils % % Lymphocytes % % Monocytes % % Eosinophils % % Basophils % % Neutrophils # (1.3-7.7) k/uL Lymphocytes # (1.0-4.8) k/uL Monocytes # (0-1.0) k/uL Eosinophils # (0-0.7) k/uL Basophils # (0-0.2) k/uL Macrocytosis PT 10.3 (9.0-12.0) sec INR 1.1 (<1.2) APTT 24.3 (22.0-30.0) sec Sodium 140 (137-145) mmol/L Potassium 4.7 (3.5-5.1) mmol/L Chloride 99 (98-107) mmol/L Carbon Dioxide 35 H (22-30) mmol/L Anion Gap 6 mmol/L BUN 22 H (9-20) mg/dL Creatinine 0.51 L (0.66-1.25) mg/dL Est GFR (CKD-EPI)AfAm >90 (>60 ml/min/1.73 sqM) Est GFR (CKD-EPI)NonAf >90 (>60 ml/min/1.73 sqM) Glucose 111 H (74-99) mg/dL POC Glucose (mg/dL) 104 H (75-99) mg/dL POC Glu Binding End Stitcher ID Jt Trinh Calcium 9.3 (8.4-10.2) mg/dL Total Bilirubin 1.0 (0.2-1.3) mg/dL AST 44 (17-59) U/L ALT 31 (21-72) U/L Alkaline Phosphatase 66 (38-126) U/L Ammonia (<30) umol/L Total Creatine Kinase (55-170) U/L CK-MB (CK-2) (0.0-2.4) ng/mL CK-MB (CK-2) Rel Index Troponin I (0.000-0.034) ng/mL Total Protein 6.2 L (6.3-8.2) g/dL Albumin 3.4 L (3.5-5.0) g/dL Urine Color Urine Appearance (Clear) Urine pH (5.0-8.0) Ur Specific [place] (1.001-1.035) Urine Protein (Negative) Urine Glucose (UA) (Negative) Urine Ketones (Negative) Urine Blood (Negative) Urine Nitrite (Negative) Urine Bilirubin (Negative) Urine Urobilinogen (<2.0) mg/dL Ur Leukocyte Esterase (Negative) Urine Opiates Screen (NotDetected) Ur Oxycodone Screen (NotDetected) Urine Methadone Screen (NotDetected) Ur Propoxyphene Screen (NotDetected) Ur Barbiturates Screen (NotDetected) U Tricyclic Antidepress (NotDetected) Ur Phencyclidine Scrn (NotDetected) Ur Amphetamines Screen (NotDetected) U Methamphetamines Scrn (NotDetected) U Benzodiazepines Scrn (NotDetected) Urine Cocaine Screen (NotDetected) U Marijuana (THC) Screen (NotDetected) 01/22/18 Range/Units 12:45 WBC (3.8-10.6) k/uL RBC (4.30-5.90) m/uL Hgb (13.0-17.5) gm/dL Hct (39.0-53.0) % MCV (80.0-100.0) fL MCH (25.0-35.0) pg MCHC (31.0-37.0) g/dL RDW (11.5-15.5) % Plt Count (150-450) k/uL Neutrophils % % Lymphocytes % % Monocytes % % Eosinophils % % Basophils % % Neutrophils # (1.3-7.7) k/uL Lymphocytes # (1.0-4.8) k/uL Monocytes # (0-1.0) k/uL Eosinophils # (0-0.7) k/uL Basophils # (0-0.2) k/uL Macrocytosis PT (9.0-12.0) sec INR (<1.2) APTT (22.0-30.0) sec Sodium (137-145) mmol/L Potassium (3.5-5.1) mmol/L Chloride (98-107) mmol/L Carbon Dioxide (22-30) mmol/L Anion Gap mmol/L BUN (9-20) mg/dL Creatinine (0.66-1.25) mg/dL Est GFR (CKD-EPI)AfAm (>60 ml/min/1.73 sqM) Est GFR (CKD-EPI)NonAf (>60 ml/min/1.73 sqM) Glucose (74-99) mg/dL POC Glucose (mg/dL) (75-99) mg/dL POC Glu Binding End Stitcher ID Calcium (8.4-10.2) mg/dL Total Bilirubin (0.2-1.3) mg/dL AST (17-59) U/L ALT (21-72) U/L Alkaline Phosphatase (38-126) U/L Ammonia (<30) umol/L Total Creatine Kinase (55-170) U/L CK-MB (CK-2) (0.0-2.4) ng/mL CK-MB (CK-2) Rel Index Troponin I (0.000-0.034) ng/mL Total Protein (6.3-8.2) g/dL Albumin (3.5-5.0) g/dL Urine Color Yellow Urine Appearance Clear (Clear) Urine pH 5.5 (5.0-8.0) Ur Specific [place] 1.017 (1.001-1.035) Urine Protein Trace H (Negative) Urine Glucose (UA) Negative (Negative) Urine Ketones 2+ H (Negative) Urine Blood Negative (Negative) Urine Nitrite Negative (Negative) Urine Bilirubin Negative (Negative) Urine Urobilinogen 3.0 (<2.0) mg/dL Ur Leukocyte Esterase Negative (Negative) Urine Opiates Screen Not Detected (NotDetected) Ur Oxycodone Screen Not Detected (NotDetected) Urine Methadone Screen Not Detected (NotDetected) Ur Propoxyphene Screen Not Detected (NotDetected) Ur Barbiturates Screen Not Detected (NotDetected) U Tricyclic Antidepress Not Detected (NotDetected) Ur Phencyclidine Scrn Not Detected (NotDetected) Ur Amphetamines Screen Not Detected (NotDetected) U Methamphetamines Scrn Not Detected (NotDetected) U Benzodiazepines Scrn Detected H (NotDetected) Urine Cocaine Screen Not Detected (NotDetected) U Marijuana (THC) Screen Not Detected (NotDetected) Disposition Clinical Impression: Altered mental status Disposition: HOME SELF-CARE Condition: Good Instructions: Acute Nausea and Vomiting (ED) Is patient prescribed a controlled substance at d/c from ED?: No Referrals: Llu Garcia MD [Primary Care Provider] - 1-2 days Time of Disposition: 13:27
[2018-01-22 11:28] LABS: Basophils % (A) 0 %; Eosinophils % (A) 0 %; HCT 45.8 % (39.0-53.0); Lymphocytes # (A) 0.4 k/uL (1.0-4.8); Lymphocytes % (A) 6 %; MCH 32.8 pg (25.0-35.0); MCHC 32.8 g/dL (31.0-37.0); MCV 99.8 fL (80.0-100.0); Macrocytosis Slight; Mean Platelet Volume 7.4; Monocytes # (A) 0.3 k/uL (0-1.0); Monocytes % (A) 4 %; Neutrophils # (A) 6.7 k/uL (1.3-7.7); Neutrophils % (A) 89 %; Platelet Count 230 k/uL (150-450); RBC 4.58 m/uL (4.30-5.90); RDW 14.4 % (11.5-15.5); WBC 7.5 k/uL (3.8-10.6)
[2018-01-22 11:41] LABS: Glucose,Whole Blood 104 mg/dL (75-99)
[2018-01-22 11:43] LABS: ALT 31 U/L (21-72); AST 44 U/L (17-59); Albumin 3.4 g/dL (3.5-5.0); Alkaline Phosphatase 66 U/L (38-126); Anion Gap 6 mmol/L; Blood Urea Nitrogen 22 mg/dL (9-20); Calcium 9.3 mg/dL (8.4-10.2); Carbon Dioxide 35 mmol/L (22-30); Chloride 99 mmol/L (98-107); Glucose 111 mg/dL (74-99); Sodium 140 mmol/L (137-145); Total Protein 6.2 g/dL (6.3-8.2)
[2018-01-22 11:49] LABS: INR 1.1 (<1.2); Partial Thromboplastin Time 24.3 sec (22.0-30.0); Prothrombin Time 10.3 sec (9.0-12.0)
[2018-01-22 11:57] LABS: Potassium 4.7 mmol/L (3.5-5.1)
[2018-01-22 12:12] LABS: Creatine Kinase MB 7.6 ng/mL (0.0-2.4)
--- NOTE | 2018-01-22 12:18 | CT ---
EXAMINATION TYPE: CT brain wo con DATE OF EXAM: 01/22/2018 COMPARISON: 10/10/2017 HISTORY: 72-year-old male confusion, altered mental status TECHNIQUE: Examination was done in axial plane without intravenous contrast. Coronal and sagittal r econstructions performed. CT DLP: 1078.4 mGycm Automated exposure control for dose reduction was used. FINDINGS: There is no evidence of acute intracranial hemorrhage, acute ischemic changes, mass, mass-effect, or extra-axial fluid collection. There is no effacement of cerebral sulci or basal subarachnoid cister ns. There is no hydrocephalus. There is no midline shift. [place]-white matter distinction is preserv ed. Prior sinonasal surgery. Mastoid air cells well pneumatized. Orbits and globes appear intact. Mild patchy white matter hypodensities likely relating to changes of chronic small vessel ischemic di sease. IMPRESSION: No acute intracranial abnormality seen. Mild changes of chronic small vessel ischemic disease.
--- NOTE | 2018-01-22 12:21 | XR ---
EXAMINATION TYPE: XR chest 2V DATE OF EXAM: 01/22/2018 COMPARISON: 05/25/2014 HISTORY: 72-year-old male confusion, altered mental status TECHNIQUE: AP and lateral views FINDINGS: Elevation of the right hemidiaphragm unchanged from prior. Heart normal size. Patchy bibasilar densit ies likely scarring and atelectasis. Mild diffuse interstitial prominence is unchanged. Increased AP chest dimension. Visualized upper lungs appear clear. IMPRESSION: 1. Suspect underlying COPD. 2. Chronic elevation of the right hemidiaphragm. This is nonspecific but may be seen in the setting o f hemidiaphragmatic paralysis. 3. Patchy bibasilar densities likely areas of atelectasis or scarring.
[2018-01-22] MEDS ORDERED: NALOXONE 0.4 MG/ML 10 ML VIAL IVP STA (12:26)
[2018-01-22 12:37] LABS: Troponin I 0.155 ng/mL (0.000-0.034)
[2018-01-22 13:10] LABS: Appearance,Urine Clear (Clear); Bilirubin,Urine Negative (Negative); Blood,Urine Negative (Negative); Color,Urine Yellow; Glucose,Urine (UA) Negative (Negative); Ketones,Urine 2+ (Negative); Leukocyte Esterase,Urine Negative (Negative); Nitrite,Urine Negative (Negative); PH, Urine 5.5 (5.0-8.0); Protein,Urine Trace (Negative); Specific Gravity,Urine 1.017 (1.001-1.035)
[2018-01-22 13:24] LABS: Amphetamine Screen,Urine Not Detected (NotDetected); Barbiturate Screen,Urine Not Detected (NotDetected); Benzodiazepines Screen,Urine Detected (NotDetected); Cocaine Screen,Urine Not Detected (NotDetected); Methadone Screen, Urine Not Detected (NotDetected); Opiate Screen,Urine Not Detected (NotDetected); Oxycodone Screen, Urine Not Detected (NotDetected); Phencyclidine Screen,Urine Not Detected (NotDetected); Tricyclic Antidepressant,Urine Not Detected (NotDetected); Urn Cannabinoid Scrn Not Detected (NotDetected)
[2018-01-22 14:00] VITALS: BP 152/81; PULSE 85; RESP 18
== END 2018-01-22 14:40 | disposition home or self-care (01) ==
LOC: EC 10:10
DX: R41.82 Altered mental status, unspecified (principal); R79.89 Other specified abnormal findings of blood chemistry; J44.9 Chronic obstructive pulmonary disease, unspecified; I25.2 Old myocardial infarction; Z85.51 Personal history of malignant neoplasm of bladder; Z85.47 Personal history of malignant neoplasm of testis; M54.9 Dorsalgia, unspecified; Z87.891 Personal history of nicotine dependence; Z79.51 Long term (current) use of inhaled steroids; Z79.891 Long term (current) use of opiate analgesic; Z91.041 Radiographic dye allergy status; Z88.0 Allergy status to penicillin; Z88.2 Allergy status to sulfonamides; Z88.8 Allergy status to other drugs, medicaments and biological substances; Z91.09 Other allergy status, other than to drugs and biological substances; Z91.018 Allergy to other foods; Z95.818 Presence of other cardiac implants and grafts; Z53.8 Procedure and treatment not carried out for other reasons
CPT/HCPCS: 36415; 70450; 71046; 80053; 80306; 81003; 82140; 82550; 82553; 84484; 85025; 85610; 85730; 93005; 96360; 99285

== ENCOUNTER 2018-03-06 23:23 | Inpatient (IN) | payer MEDICAID, MEDICARE ==
--- NOTE | 2018-03-07 00:22 | ED ---
General Adult HPI - General Source: EMS Mode of arrival: EMS Limitations: no limitations <Isiah Yuan - Last Filed: 03/07/18 00:22> <Haim Haynes - Last Filed: 03/07/18 04:19> - General Chief complaint: Weakness Stated complaint: weakness - Related Data Home Medications Medication Instructions Recorded Confirmed Fluticasone/Salmeterol [Advair 1 puff INHALATION RT-DAILY 07/10/13 03/06/18 250-50 Diskus] fentaNYL 50MCG/HR PATCH [Duragesic 50 mcg TRANSDERM Q48H 05/25/14 03/06/18 50MCG/HR] Albuterol Nebulized [Ventolin 2.5 mg INHALATION RT-Q4H PRN 09/15/15 03/06/18 Nebulized] Multivitamins, Thera [Multivitamin 1 tab PO DAILY 10/10/17 03/06/18 (formulary)] SUMAtriptan SUCCINATE [Onzetra 1 spray EA NOSTRIL DAILY PRN 03/06/18 03/06/18 Xsail] Allergies Allergy/AdvReac Type Severity Reaction Status Date / Time chocolate flavor Allergy Unknown Verified 03/06/18 23:36 Iodinated Contrast- Oral and Allergy Anaphylaxis Verified 03/06/18 23:36 IV Dye [Iodinated Contrast Media - IV Dye] iodine Allergy Anaphylaxis Verified 03/06/18 23:36 Penicillins Allergy Anaphylaxis Verified 03/06/18 23:36 Sulfa (Sulfonamide Allergy Anaphylaxis Verified 03/06/18 23:36 Antibiotics) banana AdvReac HEADACHE Verified 03/06/18 23:36 gabapentin AdvReac Unknown Verified 03/06/18 23:36 tree nut [Nut] AdvReac HEADACHE Verified 03/06/18 23:36 yellow dye AdvReac HEADACHE Verified 03/06/18 23:36 Review of Systems ROS Other: All systems not noted in ROS Statement are negative. <Isiah Yuan - Last Filed: 03/07/18 00:22> ROS Other: All systems not noted in ROS Statement are negative. <Haim Haynes - Last Filed: 03/07/18 04:19> ROS Statement: Those systems with pertinent positive or pertinent negative responses have been documented in the HPI. Past Medical History Past Medical History: Cancer, COPD, GERD/Reflux, GI Bleed, Myocardial Infarction (CO) Additional Past Medical History / Comment(s): Recent 08/03/15 EGD with bx and colonoscopy with bx for upper abdominal pain and hematemesis,/vomiting, frequent severe migraines, bladder CA with BCG treatment, testicular ca with rt orchiectomy and radiation, chronic back pain, hiatel hernia, gastritis, bells palsy. Last Myocardial Infarction Date:: 05/25/14 History of Any Multi-Drug Resistant Organisms: None Reported Past Surgical History: Adenoidectomy, Appendectomy, Heart Catheterization, Hernia Repair, Orthopedic Surgery, Tonsillectomy Additional Past Surgical History / Comment(s): 08/03/15 EGD with negative BX and colonoscopy with polypectomy and BX-neg, 05/27/14 normal cardiac cath, several back sx including laminectomy, spinous process removed T11 and T12/cage and arturo , bilateral arthroscopic knee surgeries with one done twice, left/Right, thumb surgeries with rt one having titanium joint, L rotator cuff repair, several nasal polypectomies, RFA back, R/L inguinal hernia repairs.rt orchiectomy Past Anesthesia/Blood Transfusion Reactions: No Reported Reaction Past Psychological History: No Psychological Hx Reported Smoking Status: Former smoker Past Alcohol Use History: None Reported Past Drug Use History: None Reported - Past Family History Father Family Medical History: Cancer Additional Family Medical History / Comment(s): Father of stomach ca at the age of 65 yrs. Mother Family Medical History: No Reported History Additional Family Medical History / Comment(s): Mother of "old age". She was 83 yrs old Brother(s) Family Medical History: Diabetes Mellitus Sister(s) Family Medical History: Diabetes Mellitus Additional Family Medical History / Comment(s): breast ca <Isiah Yuan D - Last Filed: 03/07/18 00:22> General Exam Limitations: no limitations <Isiah Yuan - Last Filed: 03/07/18 00:22> Vital Signs 03/06/18 03/07/18 03/07/18 23:26 01:00 01:30 Temperature 98.6 F Pulse Rate 74 81 87 Respiratory 20 12 12 Rate Blood Pressure 147/86 150/86 151/84 O2 Sat by Pulse 93 L 98 96 Oximetry 0103/07/18 03/07/18 02:00 02:30 03:00 Temperature Pulse Rate 88 79 79 Respiratory 12 13 12 Rate Blood Pressure 153/84 144/78 138/77 O2 Sat by Pulse 97 95 95 Oximetry 03/07/18 03/07/18 03:30 04:00 Temperature Pulse Rate 86 82 Respiratory 13 16 Rate Blood Pressure 140/78 145/75 O2 Sat by Pulse 96 97 Oximetry Medical Decision Making <Isiah Yuan - Last Filed: 03/07/18 00:22> - Lab Data Result diagrams: 03/07/18 00:01 03/07/18 00:01 <Haim Haynes - Last Filed: 03/07/18 04:19> - Medical Decision Making Dictation was produced using [employer] dictation software. please excuse any grammatical, word or spelling errors. Chief Complaint: 72-year-old male presents with lethargy and generalized weakness. History of Present Illness: She does a 72-year-old male past medical history of cancer, COPD, GI bleed, coronary artery disease, migraine headaches presents with lethargy times one week. Patient is brought in by . Allegedly for the last week patient has been more tired than usual. At baseline patient is able to ambulate and take care of himself. His symptoms progressed until today were called EMS. Patient had recent ablation procedures performed on his neck. Since then patient has been having these symptoms. She was able her primary care physician's office earlier today had received Toradol injection. This patient's symptoms began to progress primary care physician was notified and they were instructed to bring patient to the emergency department. Patient is unable to provide detailed in HPI this time. reports that he has been slightly confused. PHYSICAL EXAM: General Impression: Lethargic not in acute distress, follows commands HEENT: Normocephalic atraumatic, extra-ocular movements intact, pupils equal and reactive to light bilaterally, dry mucous membranes Cardiovascular: Heart regular rate and rhythm, S1&S2 audible, no murmurs, rubs or gallops Chest: Lungs clear to auscultation bilaterally, no rhonchi, no wheeze, no rales Abdomen: Bowel sounds present, abdomen soft, non-tender, non-distended, no organomegaly Musculoskeletal: Pulses present and equal in all extremities, no peripheral edema Motor: Moves all extremity is grossly Neurological: CN II-XII grossly intact, no focal motor or sensory deficits noted Skin: Intact with no visualized rashes ED course: 72-year-old male presents via EMS for lethargy, generalized weakness. All signs upon arrival are within acceptable limits. (Isiah Yuan) I received this patient as a sign out, pending the results of urinalysis to rule out urinary tract infection. Dr. Yuan had discussed case with regarding admission for altered mental status. (Haim Haynes) - Lab Data Lab Results 03/07/18 03/07/18 03/07/18 Range/Units 00:01 00:01 00:01 WBC 11.9 H (3.8-10.6) k/uL RBC 4.50 (4.30-5.90) m/uL Hgb 14.8 (13.0-17.5) gm/dL Hct 44.7 (39.0-53.0) % MCV 99.2 (80.0-100.0) fL MCH 32.8 (25.0-35.0) pg MCHC 33.1 (31.0-37.0) g/dL RDW 14.0 (11.5-15.5) % Plt Count 231 (150-450) k/uL Neutrophils % 82 % Lymphocytes % 8 % Monocytes % 6 % Eosinophils % 1 % Basophils % 0 % Neutrophils # 9.8 H (1.3-7.7) k/uL Lymphocytes # 1.0 (1.0-4.8) k/uL Monocytes # 0.8 (0-1.0) k/uL Eosinophils # 0.1 (0-0.7) k/uL Basophils # 0.0 (0-0.2) k/uL PT (9.0-12.0) sec INR (<1.2) Sodium (137-145) mmol/L Potassium (3.5-5.1) mmol/L Chloride (98-107) mmol/L Carbon Dioxide (22-30) mmol/L Anion Gap mmol/L BUN (9-20) mg/dL Creatinine (0.66-1.25) mg/dL Est GFR (CKD-EPI)AfAm (>60 ml/min/1.73 sqM) Est GFR (CKD-EPI)NonAf (>60 ml/min/1.73 sqM) Glucose (74-99) mg/dL Plasma Lactic Acid Finesse 1.1 (0.7-2.0) mmol/L Calcium (8.4-10.2) mg/dL Magnesium 1.8 (1.6-2.3) mg/dL Total Bilirubin (0.2-1.3) mg/dL AST (17-59) U/L ALT (21-72) U/L Alkaline Phosphatase (38-126) U/L Ammonia 9 (<30) umol/L Total Protein (6.3-8.2) g/dL Albumin (3.5-5.0) g/dL Urine Color Urine Appearance (Clear) Urine pH (5.0-8.0) Ur Specific [place] (1.001-1.035) Urine Protein (Negative) Urine Glucose (UA) (Negative) Urine Blood (Negative) Urine Nitrite (Negative) Urine Bilirubin (Negative) Urine Urobilinogen (<2.0) mg/dL Ur Leukocyte Esterase (Negative) 03/07/18 03/07/18 03/07/18 Range/Units 00:01 00:01 03:15 WBC (3.8-10.6) k/uL RBC (4.30-5.90) m/uL Hgb (13.0-17.5) gm/dL Hct (39.0-53.0) % MCV (80.0-100.0) fL MCH (25.0-35.0) pg MCHC (31.0-37.0) g/dL RDW (11.5-15.5) % Plt Count (150-450) k/uL Neutrophils % % Lymphocytes % % Monocytes % % Eosinophils % % Basophils % % Neutrophils # (1.3-7.7) k/uL Lymphocytes # (1.0-4.8) k/uL Monocytes # (0-1.0) k/uL Eosinophils # (0-0.7) k/uL Basophils # (0-0.2) k/uL PT 10.8 (9.0-12.0) sec INR 1.0 (<1.2) Sodium 136 L (137-145) mmol/L Potassium (3.5-5.1) mmol/L Chloride 105 (98-107) mmol/L Carbon Dioxide 26 (22-30) mmol/L Anion Gap 5 mmol/L BUN 21 H (9-20) mg/dL Creatinine 0.67 (0.66-1.25) mg/dL Est GFR (CKD-EPI)AfAm >90 (>60 ml/min/1.73 sqM) Est GFR (CKD-EPI)NonAf >90 (>60 ml/min/1.73 sqM) Glucose 89 (74-99) mg/dL Plasma Lactic Acid Finesse (0.7-2.0) mmol/L Calcium 8.9 (8.4-10.2) mg/dL Magnesium (1.6-2.3) mg/dL Total Bilirubin 2.4 H (0.2-1.3) mg/dL AST 70 H (17-59) U/L ALT 18 L (21-72) U/L Alkaline Phosphatase 62 (38-126) U/L Ammonia (<30) umol/L Total Protein 7.1 (6.3-8.2) g/dL Albumin 4.1 (3.5-5.0) g/dL Urine Color Yellow Urine Appearance Clear (Clear) Urine pH 5.0 (5.0-8.0) Ur Specific [place] 1.015 (1.001-1.035) Urine Protein Negative (Negative) Urine Glucose (UA) Negative (Negative) Urine Blood Negative (Negative) Urine Nitrite Negative (Negative) Urine Bilirubin Negative (Negative) Urine Urobilinogen <2.0 (<2.0) mg/dL Ur Leukocyte Esterase Negative (Negative) Disposition <Isiah Yuan - Last Filed: 03/07/18 00:22> Is patient prescribed a controlled substance at d/c from ED?: No <Haim Haynes - Last Filed: 03/07/18 04:19> Clinical Impression: Altered mental status Disposition: ADMITTED IP TO THIS HOSP Condition: Fair Referrals: Lul Garcia MD [Primary Care Provider] - 1-2 days
[2018-03-07] MEDS ORDERED: SODIUM CHLORIDE 0.9% 1,000 ML IV STA (00:32)
[2018-03-07] MEDS ORDERED: ONDANSETRON 4 MG/2 ML VIAL IVP STA (00:32)
[2018-03-07 00:35] LABS: Basophils % (A) 0 %; Eosinophils # (A) 0.1 k/uL (0-0.7); Eosinophils % (A) 1 %; HCT 44.7 % (39.0-53.0); HGB 14.8 gm/dL (13.0-17.5); Lymphocytes % (A) 8 %; MCH 32.8 pg (25.0-35.0); MCHC 33.1 g/dL (31.0-37.0); MCV 99.2 fL (80.0-100.0); Mean Platelet Volume 8.4; Monocytes # (A) 0.8 k/uL (0-1.0); Monocytes % (A) 6 %; Neutrophils # (A) 9.8 k/uL (1.3-7.7); Neutrophils % (A) 82 %; Platelet Count 231 k/uL (150-450); WBC 11.9 k/uL (3.8-10.6)
--- NOTE | 2018-03-07 00:35 | CT ---
EXAMINATION TYPE: CT brain mun[facility] curran DATE OF EXAM: 03/07/2018 COMPARISON: CT brain 01/22/2018 HISTORY: Lethargy;generalized weakness CT DLP: 1187.1 mGycm Automated exposure control for dose reduction was used. TECHNIQUE: CT scan of the head and cervical spine are performed without contrast. FINDINGS: There is minimal cerebral cortical atrophy. There is no mass effect nor midline shift. Th ere is no sign of intracranial hemorrhage. Calvarium appears intact. The cervical vertebra have normal spacing and alignment. Posterior elements are intact. Facet joints appear normal. The skull base appears intact. IMPRESSION: Negative CT scan of the brain. No change. Negative CT scan of the cervical spine. No fracture.
[2018-03-07 00:48] LABS: Lactic Acid, Venous 1.1 mmol/L (0.7-2.0)
[2018-03-07 00:59] LABS: Prothrombin Time 10.8 sec (9.0-12.0)
[2018-03-07 01:11] LABS: ALT 18 U/L (21-72); AST 70 U/L (17-59); Albumin 4.1 g/dL (3.5-5.0); Alkaline Phosphatase 62 U/L (38-126); Anion Gap 5 mmol/L; Blood Urea Nitrogen 21 mg/dL (9-20); Calcium 8.9 mg/dL (8.4-10.2); Carbon Dioxide 26 mmol/L (22-30); Chloride 105 mmol/L (98-107); Glucose 89 mg/dL (74-99); Sodium 136 mmol/L (137-145); Total Bilirubin 2.4 mg/dL (0.2-1.3); Total Protein 7.1 g/dL (6.3-8.2)
--- NOTE | 2018-03-07 02:40 | XR ---
EXAMINATION TYPE: XR chest 2V DATE OF EXAM: 03/07/2018 COMPARISON: 01/22/2018 HISTORY: Altered mental status. Chest pain TECHNIQUE: Frontal and lateral views of the chest are obtained. FINDINGS: There is elevated right diaphragm. There is some atelectasis at the right lung base. There is no heart failure. Heart size is normal. Thoracic aorta is atheromatous. There are chest leads. IMPRESSION: There is atelectasis at the right lung base unchanged. No heart failure seen. There is c learing of small infiltrate lateral left lung base compared to last exam.
[2018-03-07 04:14] LABS: Appearance,Urine Clear (Clear); Bilirubin,Urine Negative (Negative); Blood,Urine Negative (Negative); Color,Urine Yellow; Glucose,Urine (UA) Negative (Negative); Ketones,Urine 2+ (Negative); Leukocyte Esterase,Urine Negative (Negative); Nitrite,Urine Negative (Negative); Protein,Urine Negative (Negative); Specific Gravity,Urine 1.015 (1.001-1.035); Urobilinogen,Urine <2.0 mg/dL (<2.0)
[2018-03-07] MEDS ORDERED: NALOXONE 0.4 MG/ML 1 ML VIAL IV PRN (04:17)
[2018-03-07] MEDS ORDERED: ALBUTEROL NEBULIZED 2.5 MG/3 ML INHALATION PRN (04:18)
--- NOTE | 2018-03-07 08:29 | P.HPIM ---
History of Present Illness H&P Date: 03/07/18 Chief Complaint: Altered mental status intractable headache. This is a history of physical 72-year-old white male with known history of COPD coronary disease but has been struggling recently with chronic pain and migraine headache. Dr. Middleton has been treating the patient intermittently but over the last several days she's been coming less arousable. He was seen in my office yesterday at the behest of his and given some Toradol to try to get some relief. However he was reevaluated later in the day and sent to the hospital for evaluation because he was quite lethargic. We will go ahead and consult neurology at this time. No sniffing complaints are stated because of his lack of arousability. Review of Systems ROS unobtainable: due to mental status Eyes: denies blurred vision, denies pain Past Medical History Past Medical History: Cancer, COPD, GERD/Reflux, GI Bleed, Myocardial Infarction (CO) Additional Past Medical History / Comment(s): Recent 08/03/15 EGD with bx and colonoscopy with bx for upper abdominal pain and hematemesis,/vomiting, frequent severe migraines, bladder CA with BCG treatment, testicular ca with rt orchiectomy and radiation, chronic back pain, hiatel hernia, gastritis, bells palsy. Last Myocardial Infarction Date:: 05/25/14 History of Any Multi-Drug Resistant Organisms: None Reported Past Surgical History: Adenoidectomy, Appendectomy, Heart Catheterization, Hernia Repair, Orthopedic Surgery, Tonsillectomy Additional Past Surgical History / Comment(s): 08/03/15 EGD with negative BX and colonoscopy with polypectomy and BX-neg, 05/27/14 normal cardiac cath, several back sx including laminectomy, spinous process removed T11 and T12/cage and arturo , bilateral arthroscopic knee surgeries with one done twice, left/Right, thumb surgeries with rt one having titanium joint, L rotator cuff repair, several nasal polypectomies, RFA back, R/L inguinal hernia repairs.rt orchiectomy Past Anesthesia/Blood Transfusion Reactions: No Reported Reaction Past Psychological History: No Psychological Hx Reported Smoking Status: Former smoker Past Alcohol Use History: None Reported Past Drug Use History: None Reported - Past Family History Father Family Medical History: Cancer Additional Family Medical History / Comment(s): Father of stomach ca at the age of 65 yrs. Mother Family Medical History: No Reported History Additional Family Medical History / Comment(s): Mother of "old age". She was 83 yrs old Brother(s) Family Medical History: Diabetes Mellitus Sister(s) Family Medical History: Diabetes Mellitus Additional Family Medical History / Comment(s): breast ca Medications and Allergies Home Medications Medication Instructions Recorded Confirmed Type Fluticasone/Salmeterol [Advair 1 puff INHALATION RT-DAILY 07/10/13 03/06/18 History 250-50 Diskus] fentaNYL 50MCG/HR PATCH [Duragesic 50 mcg TRANSDERM Q48H 05/25/14 03/06/18 History 50MCG/HR] Albuterol Nebulized [Ventolin 2.5 mg INHALATION RT-Q4H PRN 09/15/15 03/06/18 History Nebulized] Multivitamins, Thera [Multivitamin 1 tab PO DAILY 10/10/17 03/06/18 History (formulary)] SUMAtriptan SUCCINATE [Onzetra 1 spray EA NOSTRIL DAILY PRN 03/06/18 03/06/18 History Xsail] Allergies Allergy/AdvReac Type Severity Reaction Status Date / Time chocolate flavor Allergy Unknown Verified 03/06/18 23:36 Iodinated Contrast- Oral and Allergy Anaphylaxis Verified 03/06/18 23:36 IV Dye [Iodinated Contrast Media - IV Dye] iodine Allergy Anaphylaxis Verified 03/06/18 23:36 Penicillins Allergy Anaphylaxis Verified 03/06/18 23:36 Sulfa (Sulfonamide Allergy Anaphylaxis Verified 03/06/18 23:36 Antibiotics) banana AdvReac HEADACHE Verified 03/06/18 23:36 gabapentin AdvReac Unknown Verified 03/06/18 23:36 tree nut [Nut] AdvReac HEADACHE Verified 03/06/18 23:36 yellow dye AdvReac HEADACHE Verified 03/06/18 23:36 Physical Exam Vitals: Vital Signs Temp Pulse Pulse Resp BP BP Pulse Ox 03/07/18 05:39 98.8 F 84 16 145/71 97 03/07/18 04:00 82 16 145/75 97 03/07/18 03:30 86 13 140/78 96 03/07/18 03:00 79 12 138/77 95 03/07/18 02:30 79 13 144/78 95 03/07/18 02:00 88 12 153/84 97 03/07/18 01:30 87 12 151/84 96 03/07/18 01:00 81 12 150/86 98 03/06/18 23:26 98.6 F 74 20 147/86 93 L Intake and Output 03/06/18 03/07/18 03/07/18 22:59 06:59 14:59 Other: Weight 77.111 kg - Constitutional General appearance: thin - EENT Eyes: EOMI - Neck Neck: no lymphadenopathy - Respiratory Respiratory: bilateral: CTA - Cardiovascular Rhythm: regular Heart sounds: normal: S1, S2 Abnormal Heart Sounds: no S3 Gallop - Gastrointestinal General gastrointestinal: soft, no tenderness - Integumentary Integumentary: no cellulitis - Neurologic The patient is not able to follow commands at this time - Psychiatric Psychiatric: no A&O x's 3, no appropriate affect, no intact judgment & insight Results CBC & Chem 7: 03/07/18 00:01 03/07/18 00:01 Labs: Abnormal Lab Results - Last 24 Hours (Table) 03/07/18 03/07/18 03/07/18 Range/Units 00:01 00:01 03:15 WBC 11.9 H (3.8-10.6) k/uL Neutrophils # 9.8 H (1.3-7.7) k/uL Sodium 136 L (137-145) mmol/L BUN 21 H (9-20) mg/dL Total Bilirubin 2.4 H (0.2-1.3) mg/dL AST 70 H (17-59) U/L ALT 18 L (21-72) U/L Urine Ketones 2+ H (Negative) Assessment and Plan (1) Altered mental status Current Visit: Yes Status: Acute Code(s): R41.82 - ALTERED MENTAL STATUS, UNSPECIFIED SNOMED Code(s): 867668131 (2) Generalized weakness Current Visit: No Status: Acute Code(s): R53.1 - WEAKNESS SNOMED Code(s): 35798737 (3) High risk for readmission Current Visit: No Status: Acute Code(s): Z91.89 - OTH PERSONAL RISK FACTORS , NOT ELSEWHERE CLASSIFIED SNOMED Code(s): 156870630 (4) Hx of nicotine dependence Current Visit: No Status: Acute Code(s): Z87.891 - PERSONAL HISTORY OF NICOTINE DEPENDENCE SNOMED Code(s): 751178197 (5) Intractable migraine Current Visit: No Status: Acute Code(s): G43.919 - MIGRAINE, UNSP, INTRACTABLE, WITHOUT STATUS MIGRAINOSUS SNOMED Code(s): 558309319 (6) Nausea & vomiting Current Visit: No Status: Resolved Code(s): R11.2 - NAUSEA WITH VOMITING, UNSPECIFIED SNOMED Code(s): 14943397 Plan: Given some Narcan to see if that gets his mental status back to some semblance of lucidity. Check CBC and CMP in a.m. IV fluid hydration element. Consult neurology with Dr. Gaxiola. Dr. Rangel's group will be covering for the weekend. Reconcile medications as possible. New prep see orders otherwise Time with Patient: Greater than 30
[2018-03-07] MEDS ORDERED: SUMATRIPTAN SUCCINATE EA NOSTRIL PRN (09:00)
[2018-03-07] MEDS: SODIUM CHLORIDE 0.9% 1,000 ML IV SCH ×2 (10:44→22:49)
[2018-03-07] MEDS: MULTIVITAMINS, THERA 1 EACH TAB PO SCH (13:37)
[2018-03-07 13:44] VITALS: BMI 24.3
[2018-03-07] MEDS: ACETAMINOPHEN TAB 325 MG TAB PO PRN (17:56)
[2018-03-08] MEDS: ACETAMINOPHEN TAB 325 MG TAB PO PRN ×3 (00:30→22:45)
[2018-03-08 07:09] LABS: HCT 43.4 % (39.0-53.0); HGB 13.9 gm/dL (13.0-17.5); MCH 31.7 pg (25.0-35.0); MCHC 31.9 g/dL (31.0-37.0); MCV 99.2 fL (80.0-100.0); Platelet Count 219 k/uL (150-450); RBC 4.38 m/uL (4.30-5.90); RDW 13.9 % (11.5-15.5); WBC 6.6 k/uL (3.8-10.6)
[2018-03-08 07:22] LABS: ALT 30 U/L (21-72); AST 21 U/L (17-59); Albumin 3.4 g/dL (3.5-5.0); Alkaline Phosphatase 72 U/L (38-126); Anion Gap 5 mmol/L; Blood Urea Nitrogen 14 mg/dL (9-20); Calcium 9.2 mg/dL (8.4-10.2); Carbon Dioxide 32 mmol/L (22-30); Chloride 103 mmol/L (98-107); Glucose 89 mg/dL (74-99); Potassium 4.2 mmol/L (3.5-5.1); Sodium 140 mmol/L (137-145); Total Bilirubin 1.6 mg/dL (0.2-1.3); Total Protein 5.9 g/dL (6.3-8.2)
[2018-03-08] MEDS: SODIUM CHLORIDE 0.9% 1,000 ML IV SCH ×2 (11:13→22:46)
[2018-03-08] MEDS: MULTIVITAMINS, THERA 1 EACH TAB PO SCH (13:09)
--- NOTE | 2018-03-08 13:39 | P.PN ---
Subjective Progress Note Date: 03/08/18 72-year-old white male with known history of COPD coronary disease but has been struggling recently with chronic pain and migraine headache. Dr. Middleton has been treating the patient intermittently but over the last several days she's been coming less arousable. He was seen in my office yesterday at the behest of his and given some Toradol to try to get some relief. However he was reevaluated later in the day and sent to the hospital for evaluation because he was quite lethargic. We will go ahead and consult neurology at this time. 03/08/2018 Patient is seen and evaluated in the room at bedside; patient's of a candidate at this time; vital signs are stable with a temperature of 97.7 pulse 77 and blood pressure 147/76; patient is pulse oximeter 99% on 2 L Labs are reviewed showing improvement in renal function and downtrending of liver enzymes with normal transaminases and drum trended total bilirubin at 1.6 from 2.40 yesterday; we plan to continue to monitor till liver enzymes aren't; await evaluation of neurology for any further recommendations; we will continue with neuro checks and IV hydration to further recommendations from neuro Objective - Vital Signs Vital signs: Vital Signs Temp 97.7 F 03/08/18 05:00 Pulse 77 03/08/18 08:00 Resp 16 03/08/18 08:00 BP 147/76 03/08/18 05:00 Pulse Ox 93 L 03/08/18 05:00 Intake & Output 03/07/18 03/08/18 03/08/18 18:59 06:59 18:59 Intake Total 225 1260 Output Total 600 300 Balance -375 960 Weight 77.111 kg Intake: Intake, IV Titration 225 900 Amount Sodium Chloride 0.9% 1, 225 900 000 ml @ 75 mls/hr IV . [id number] [facility]EE Rx#:[id number] Oral 360 Output: Urine 600 300 Other: Voiding Method Urinal Urinal Urinal # Voids 2 - Exam - Constitutional General appearance: Present: average body habitus, cooperative, no acute distress - EENT Eyes: Present: anicteric sclerae, EOMI, PERRLA, normal appearance ENT: Present: hearing grossly normal, normal oropharynx Ears: bilateral: normal - Neck Neck: Present: normal ROM. Absent: lymphadenopathy, rigidity, thyromegaly Carotids: negative: bruit present Thyroid: bilateral: normal size, negative: enlarged, nodule - Respiratory Respiratory: bilateral: CTA, negative: rales, rhonchi, wheezing - Cardiovascular Rhythm: regular Heart sounds: normal: S1, S2 Abnormal Heart Sounds: Absent: systolic murmur, diastolic murmur - Gastrointestinal General gastrointestinal: Present: normal bowel sounds, soft. Absent: distended , organomegaly, tenderness - Genitourinary Genitourinary Comment(s): deferred - Integumentary Integumentary: Present: normal turgor. Absent: jaundiced, rash, ulcer - Neurologic Neurologic: Present: CNII-XII intact. Absent: focal deficits - Musculoskeletal Musculoskeletal: Present: gait normal, strength equal bilaterally - Psychiatric Psychiatric: Present: A&O x's 3, appropriate affect, intact judgment & insight - Labs CBC & Chem 7: 03/08/18 06:40 03/08/18 06:40 Labs: Abnormal Lab Results - Last 24 Hours (Table) 03/08/18 Range/Units 06:40 Carbon Dioxide 32 H (22-30) mmol/L Creatinine 0.49 L (0.66-1.25) mg/dL Total Bilirubin 1.6 H (0.2-1.3) mg/dL Total Protein 5.9 L (6.3-8.2) g/dL Albumin 3.4 L (3.5-5.0) g/dL Assessment and Plan Assessment: 1. Altered mental status; possibly multifactorial - Patient does show improvement with IV fluid hydration - Await neuro evaluation and recommendations 2. Mild renal injury/dehydration - Remains on IV fluids normal saline at rate of 75 mL an hour - We will continue to monitor electrolytes, renal function and strict YESENIA - Avoid nephrotoxins and hypotension 3. Elevated liver enzymes - Continue to monitor liver enzymes till at baseline - We will plan to order hepato-biliary ultrasound and hepatitis profile if liver enzymes remain elevated 4. Nausea and vomiting - Possibly secondary to 3; continue to manage as above 5. DVT prophylaxis CODE STATUS; full code Time with Patient: Greater than 30
[2018-03-08] MEDS: SYMBICORT 80-4.5 MCG INHALER INHALATION SCH (17:20)
[2018-03-09 07:29] LABS: Anion Gap 4 mmol/L; Blood Urea Nitrogen 11 mg/dL (9-20); Calcium 9.6 mg/dL (8.4-10.2); Carbon Dioxide 34 mmol/L (22-30); Chloride 104 mmol/L (98-107); Glucose 95 mg/dL (74-99); Potassium 4.1 mmol/L (3.5-5.1); Sodium 142 mmol/L (137-145)
[2018-03-09 07:52] LABS: HCT 44.1 % (39.0-53.0); HGB 14.3 gm/dL (13.0-17.5); MCH 31.7 pg (25.0-35.0); MCHC 32.4 g/dL (31.0-37.0); MCV 97.9 fL (80.0-100.0); Platelet Count 227 k/uL (150-450); RDW 13.8 % (11.5-15.5); WBC 7.9 k/uL (3.8-10.6)
[2018-03-09] MEDS: ACETAMINOPHEN TAB 325 MG TAB PO PRN (08:24)
[2018-03-09] MEDS: SYMBICORT 80-4.5 MCG INHALER INHALATION SCH ×3 (08:53→20:01)
[2018-03-09] MEDS: SODIUM CHLORIDE 0.9% 1,000 ML IV SCH ×2 (08:59→23:55)
[2018-03-09 09:30] LABS: Eosinophils # (M) 0.32 k/uL (0-0.7); Lymphocytes # (M) 1.42 k/uL (1.0-4.8); Neutrophils # (M) 5.77 k/uL (1.3-7.7); Neutrophils % (M) 73 %; Nucleated Red Blood Cells 0 /100 WBC (0-0); Total Cells Counted 100
[2018-03-09] MEDS: MULTIVITAMINS, THERA 1 EACH TAB PO SCH (12:58)
--- NOTE | 2018-03-09 14:13 | P.PN ---
Subjective Progress Note Date: 03/09/18 Principal diagnosis: Altered mental status intractable headache. 72-year-old white male with known history of COPD coronary disease but has been struggling recently with chronic pain and migraine headache. Dr. Middleton has been treating the patient intermittently but over the last several days she's been coming less arousable. He was seen in my office yesterday at the behest of his and given some Toradol to try to get some relief. However he was reevaluated later in the day and sent to the hospital for evaluation because he was quite lethargic. We will go ahead and consult neurology at this time. 03/08/2018 Patient is seen and evaluated in the room at bedside; patient's of a candidate at this time; vital signs are stable with a temperature of 97.7 pulse 77 and blood pressure 147/76; patient is pulse oximeter 99% on 2 L Labs are reviewed showing improvement in renal function and downtrending of liver enzymes with normal transaminases and drum trended total bilirubin at 1.6 from 2.40 yesterday; we plan to continue to monitor till liver enzymes aren't; await evaluation of neurology for any further recommendations; we will continue with neuro checks and IV hydration to further recommendations from neuro 03/09/2018 Patient is seen and evaluated in the room at bedside for follow-up; patient relates that he was little unsteady on his feet when he got out of bed; PT has been consulted but the recommendations are pending Patient's vital signs remained stable with temperature of 98, pulse 67, respiration 20 and blood pressure of 166/87; SpO2 remains steady at 98% on 2 L Laboratory review shows a downtrending bilirubin from 2.4-1.6; we will order hepatobiliary ultrasound and acute hepatitis profile and trend liver function test Patient has made marked improvement in neurological status simply by holding pain medications; patient is on Duragesic patch 50 MCG which will be the escalated to 25 MCG; we will monitor patient closely; patient will likely need follow-up with neurology as an outpatient Objective - Vital Signs Vital signs: Vital Signs Temp 97.1 F L 03/09/18 05:00 Pulse 84 03/09/18 05:00 Resp 16 03/09/18 05:00 BP 152/90 03/09/18 05:00 Pulse Ox 94 L 03/09/18 05:00 Intake & Output 03/08/18 03/09/18 03/09/18 18:59 06:59 18:59 Intake Total 2009 Output Total 500 600 Balance -500 1410 Intake: Oral 2009 Output: Urine 500 600 Other: Voiding Method Urinal Toilet Urinal # Voids 2 - Exam - Constitutional General appearance: Present: average body habitus, cooperative, no acute distress - EENT Eyes: Present: anicteric sclerae, EOMI, PERRLA, normal appearance ENT: Present: hearing grossly normal, normal oropharynx Ears: bilateral: normal - Neck Neck: Present: normal ROM. Absent: lymphadenopathy, rigidity, thyromegaly Carotids: negative: bruit present Thyroid: bilateral: normal size, negative: enlarged, nodule - Respiratory Respiratory: bilateral: CTA, negative: rales, rhonchi, wheezing - Cardiovascular Rhythm: regular Heart sounds: normal: S1, S2 Abnormal Heart Sounds: Absent: systolic murmur, diastolic murmur - Gastrointestinal General gastrointestinal: Present: normal bowel sounds, soft. Absent: distended , organomegaly, tenderness - Genitourinary Genitourinary Comment(s): deferred - Integumentary Integumentary: Present: normal turgor. Absent: jaundiced, rash, ulcer - Neurologic Neurologic: Present: CNII-XII intact. Absent: focal deficits - Musculoskeletal Musculoskeletal: Present: gait normal, strength equal bilaterally - Psychiatric Psychiatric: Present: A&O x's 3, appropriate affect, intact judgment & insight - Labs CBC & Chem 7: 03/09/18 06:53 03/09/18 06:53 Labs: Abnormal Lab Results - Last 24 Hours (Table) 03/09/18 Range/Units 06:53 Carbon Dioxide 34 H (22-30) mmol/L Creatinine 0.52 L (0.66-1.25) mg/dL Assessment and Plan Assessment: 1. Altered mental status; possibly multifactorial - Patient does show improvement with IV fluid hydration - Await neuro evaluation and recommendations 2. Mild renal injury/dehydration - Remains on IV fluids normal saline at rate of 75 mL an hour - We will continue to monitor electrolytes, renal function and strict YESENIA - Avoid nephrotoxins and hypotension 3. Elevated liver enzymes - Continue to monitor liver enzymes till at baseline - We will plan to order hepato-biliary ultrasound and hepatitis profile if liver enzymes remain elevated 4. Nausea and vomiting - Possibly secondary to 3; continue to manage as above 5. DVT prophylaxis CODE STATUS; full code Time with Patient: Greater than 30
[2018-03-09 22:33] VITALS: RESP 16
[2018-03-10 03:50] VITALS: BP 112/65; PULSE 86; TEMP 98.1
[2018-03-10] MEDS: ACETAMINOPHEN TAB 325 MG TAB PO PRN (03:50)
--- NOTE | 2018-03-10 08:15 | US ---
EXAMINATION TYPE: US liver DATE OF EXAM: 03/10/2018 COMPARISON: CT, US CLINICAL HISTORY: abnormal LFTs. Patient stated has not had regular bowel movement in 1 week. EXAM MEASUREMENTS: US exam is severely limited for organ visualization due to overlying bowel gas, ev en though scanning in LLD, supine, and intercostally was performed. Liver Length: right lobe not seen Gallbladder Wall: gallbladder not seen CBD: not seen Right Kidney: 9.3 x 6.5 x 4.2 cm Liver: Visualized portions of liver demonstrate diffuse hyperechogenicity. On the CT of 07/06/2016 the re is colonic interposition creating difficulty in evaluation of the liver by ultrasound. Pancreas: Dilated duct noted midline Right Kidney: No hydronephrosis or masses seen IMPRESSION: 1. Abnormal pancreatic ductal dilatation. Three-phase enhanced CT (pancreatic mass protocol) or MRCP with and without contrast are recommended for further evaluation. 2. There is severely limited evaluation of the liver secondary to overlying bowel gas despite multipl e scanning in multiple positions including intercostal ultrasound. The visualized portions of the onel er demonstrate diffuse hyperechogenicity typically relating to hepatic steatosis however this may be related to poor penetration by ultrasound.
[2018-03-10 08:26] LABS: Albumin 3.3 g/dL (3.5-5.0); Bilirubin, Delta 0.2 mg/dL (0.0-0.2); Total Bilirubin 1.2 mg/dL (0.2-1.3); Total Protein 5.8 g/dL (6.3-8.2)
--- NOTE | 2018-03-10 08:26 | P.DS ---
Providers Date of admission: 03/07/18 04:18 Attending physician: Lul Garcia Primary care physician: Lul Garcia - Discharge Diagnosis(es) (1) Altered mental status Current Visit: Yes Status: Acute (2) Generalized weakness Current Visit: No Status: Acute (3) High risk for readmission Current Visit: No Status: Acute (4) Hx of nicotine dependence Current Visit: No Status: Acute (5) Intractable migraine Current Visit: No Status: Acute (6) Nausea & vomiting Current Visit: No Status: Resolved Hospital Course: This discharge summary 72-year-old white male essentially admitted for check of headache and altered mental status. The patient was stabilized after being given Avelox own and decreased on his fentanyl patch. The patient is agreeable to this. We will go ahead and do neurologic workup as an outpatient patient is stable tolerating diet will follow-up with me in about 3-5 days. Patient Condition at Discharge: Fair Plan - Discharge Summary Discharge Rx Participant: No New Discharge Prescriptions: New fentaNYL 25MCG/HR PATCH [Duragesic 25MCG/HR] 1 patch TRANSDERM Q48H #15 patch Continue Fluticasone/Salmeterol [Advair 250-50 Diskus] 1 puff INHALATION RT-DAILY Albuterol Nebulized [Ventolin Nebulized] 2.5 mg INHALATION RT-Q4H PRN PRN Reason: Shortness Of Breath Multivitamins, Thera [Multivitamin (formulary)] 1 tab PO DAILY SUMAtriptan SUCCINATE [Onzetra Xsail] 1 spray EA NOSTRIL DAILY PRN PRN Reason: Migraine Headache Discontinued fentaNYL 50MCG/HR PATCH [Duragesic 50MCG/HR] 50 mcg TRANSDERM Q48H Discharge Medication List Fluticasone/Salmeterol [Advair 250-50 Diskus] 1 puff INHALATION RT-DAILY [History] Albuterol Nebulized [Ventolin Nebulized] 2.5 mg INHALATION RT-Q4H PRN 09/15/15 [ History] Multivitamins, Thera [Multivitamin (formulary)] 1 tab PO DAILY 10/10/17 [History ] SUMAtriptan SUCCINATE [Onzetra Xsail] 1 spray EA NOSTRIL DAILY PRN 03/06/18 [ History] fentaNYL 25MCG/HR PATCH [Duragesic 25MCG/HR] 1 patch TRANSDERM Q48H #15 patch [Rx] Follow up Appointment(s)/Referral(s): Lul Garcia MD [Primary Care Provider] - 1-2 days
[2018-03-10] MEDS: SYMBICORT 80-4.5 MCG INHALER INHALATION SCH (09:36)
[2018-03-10 18:01] LABS: Hepatitis A Antibody IgM Non-Reactive (Non-Reactive); Hepatitis B Core IgM Non-Reactive (Non-Reactive)
--- NOTE | 2018-03-11 12:38 | CDI ---
Documentation Clarification Form Date: 03/11/18 From: Patti Gomez Phone: If you have a question regarding this query, please contact Marcelina Alvarez at [phone] between 8am and 5pm. Admit Date: 03/07/2018 4:18:00 AM Patient Name: Dashawn Fair Visit Number: [id number] Discharge Date: 03/10/2018 12:42:00 PM ATTENTION: The Clinical Documentation Specialists (CDI) and [facility] Coding Staff appreciate your assistance in clarifying documentation. Please respond to the clarification below the line at the bottom and electronically sign. The CDI & [facility] Coding staff will review the response and follow-up if needed. Please note: Queries are made part of the Legal Health Record. If you have any questions, please contact the author of this message via ITS. Dr. Lul Garcia Altered Mental Status was documented in the ED, H&P, progress notes and discharge summary. History/Risk Factors: Patient was admitted for altered mental status and intractable headache and was dehydrated. Per 03/09 progress note, documentation states that the patient's altered mental status was possibly multifactorial. Patient has a history of migraines, COPD, chronic back pain and CAD. Clinical Indicators: Confusion and lethargy. Labs: WBC/neutrophils - 11.9/9.8, BUN 21, sodium 136 X Ray: Chest: There is atelectasis at the right lung base unchanged. No heart failure seen. There is clearing of small infiltrate lateral left lung base compared to last exam. CT: Brain CT: Negative Treatment: Per documentation, the patient showed improvement with IV hydration. In your professional opinion, please clarify the etiology of the Altered Mental Status, if known. Delirium (specify cause): Dementia (if know, specify Type and if with/without Behavioral Disturbance) ____ ___ Encephalopathy (specify Type and Underlying Medical Illness) Other condition (please specify) Unable to determine the patient has delirium related to opiate use/encephalopathy MTDD
== END 2018-03-10 12:42 | disposition home or self-care (01) | DRG 93 ==
LOC: EC 23:23 → OBSVTOIN 03-07 04:18 → 3NMEDONC 03-07 04:18
PROVIDERS: ADMIT Family Medicine; ATTEND Family Medicine
DX: G92 Toxic encephalopathy (principal); E86.0 Dehydration; J44.9 Chronic obstructive pulmonary disease, unspecified; T40.605A Adverse effect of unspecified narcotics, initial encounter; G43.919 Migraine, unspecified, intractable, without status migrainosus; I25.10 Atherosclerotic heart disease of native coronary artery without angina pectoris; I25.2 Old myocardial infarction; K21.9 Gastro-esophageal reflux disease without esophagitis; G89.29 Other chronic pain; M54.9 Dorsalgia, unspecified; R11.2 Nausea with vomiting, unspecified; R74.8 Abnormal levels of other serum enzymes; K44.9 Diaphragmatic hernia without obstruction or gangrene; Z85.51 Personal history of malignant neoplasm of bladder; Z85.47 Personal history of malignant neoplasm of testis; Z79.899 Other long term (current) drug therapy; Z91.041 Radiographic dye allergy status; Z91.018 Allergy to other foods; Z88.0 Allergy status to penicillin; Z88.2 Allergy status to sulfonamides; Z91.09 Other allergy status, other than to drugs and biological substances; Z92.3 Personal history of irradiation; Z90.79 Acquired absence of other genital organ(s); Z90.49 Acquired absence of other specified parts of digestive tract; Z87.891 Personal history of nicotine dependence; Z86.010 Personal history of colon polyps; Z83.3 Family history of diabetes mellitus; Z80.3 Family history of malignant neoplasm of breast; Z80.0 Family history of malignant neoplasm of digestive organs
CPT/HCPCS: 36415; 70450; 71046; 72125; 76705; 80048; 80053; 80074; 80076; 81003; 82140; 83605; 83735; 85025; 85027; 85610; 93005; 94640; 96361; 96374; 99285

== ENCOUNTER 2018-03-11 09:57 | Inpatient (IN) | payer MEDICAID, MEDICARE ==
--- NOTE | 2018-03-11 10:39 | ED ---
General Adult HPI - General Chief complaint: Recheck/Abnormal Lab/Rx Stated complaint: headache, fall Source: patient Mode of arrival: wheelchair Limitations: physical limitation - Related Data Home Medications Medication Instructions Recorded Confirmed Fluticasone/Salmeterol [Advair 1 puff INHALATION RT-DAILY 07/10/13 03/11/18 250-50 Diskus] Albuterol Nebulized [Ventolin 2.5 mg INHALATION RT-Q4H PRN 09/15/15 03/11/18 Nebulized] Multivitamins, Thera [Multivitamin 1 tab PO DAILY 10/10/17 03/11/18 (formulary)] SUMAtriptan SUCCINATE [Onzetra 1 spray EA NOSTRIL DAILY PRN 03/06/18 03/11/18 Xsail] Omeprazole [PriLOSEC] 40 mg PO DAILY 03/11/18 03/11/18 Previous Rx's Medication Instructions Recorded fentaNYL 25MCG/HR PATCH [Duragesic 1 patch TRANSDERM Q48H #15 patch 03/10/18 25MCG/HR] Allergies Allergy/AdvReac Type Severity Reaction Status Date / Time chocolate flavor Allergy Unknown Verified 03/11/18 10:38 Iodinated Contrast- Oral and Allergy Anaphylaxis Verified 03/11/18 10:38 IV Dye [Iodinated Contrast Media - IV Dye] iodine Allergy Anaphylaxis Verified 03/11/18 10:38 Penicillins Allergy Anaphylaxis Verified 03/11/18 10:38 Sulfa (Sulfonamide Allergy Anaphylaxis Verified 03/11/18 10:38 Antibiotics) banana AdvReac HEADACHE Verified 03/11/18 10:38 gabapentin AdvReac Unknown Verified 03/11/18 10:38 tree nut [Nut] AdvReac HEADACHE Verified 03/11/18 10:38 yellow dye AdvReac HEADACHE Verified 03/11/18 10:38 Review of Systems ROS Statement: Those systems with pertinent positive or pertinent negative responses have been documented in the HPI. ROS Other: All systems not noted in ROS Statement are negative. Past Medical History Past Medical History: Cancer, COPD, GERD/Reflux, GI Bleed Additional Past Medical History / Comment(s): Bladder cancer with BCG and tumor removal, R testicular cancer with orchiectomy/radiation, chronic back and cervical pain, frequent debilitating migraines, bilateral sciatica, upper GI bleeds, hiatal hernia, gastritis, pedersen's palsey Last Myocardial Infarction Date:: 05/25/14 History of Any Multi-Drug Resistant Organisms: None Reported Past Surgical History: Adenoidectomy, Appendectomy, Heart Catheterization, Hernia Repair, Orthopedic Surgery, Tonsillectomy Additional Past Surgical History / Comment(s): 08/03/15 EGD with negative BX and colonoscopy with polypectomy and BX-neg, 05/27/14 normal cardiac cath, several back sx including laminectomy, spinous process removed T11 and T12/cage and arturo , bilateral arthroscopic knee surgeries with one done twice, left/Right, thumb surgeries with rt one having titanium joint, L rotator cuff repair, several nasal polypectomies, RFA cervical/back, R/L inguinal hernia repairs, rt orchiectomy Past Anesthesia/Blood Transfusion Reactions: No Reported Reaction Past Psychological History: Depression Smoking Status: Former smoker Past Alcohol Use History: None Reported Past Drug Use History: None Reported - Past Family History Father Family Medical History: Cancer Additional Family Medical History / Comment(s): Father of stomach ca at the age of 65 yrs. Mother Family Medical History: No Reported History Additional Family Medical History / Comment(s): Mother of "old age". She was 83 yrs old Brother(s) Family Medical History: Diabetes Mellitus Sister(s) Family Medical History: Diabetes Mellitus Additional Family Medical History / Comment(s): breast ca General Exam Limitations: physical limitation Course Vital Signs 03/11/18 10:00 Temperature 97.5 F L Pulse Rate 84 Respiratory 18 Rate Blood Pressure 106/63 O2 Sat by Pulse 96 Oximetry Medical Decision Making - Medical Decision Making Dictation was produced using [email or web address] dictation software. please excuse any grammatical, word or spelling errors. Chief Complaint: 72-year-old male with past medical history of chronic headaches, COPD, coronary artery disease presents with instructions from primary care physician of the emergency department after fall. History of Present Illness: Old male. He was seen at his primary care physician 's office for follow-up appointment. Patient was recently admitted for altered mental status, lethargy and headaches. Patient was discharged in stable condition. Last night he reports that he fell causing him to strike his head on the ground. Patient states that he does have some pain of anterior forehead and some neck pain. He was seen and evaluated at primary care physician's office told to come to the emergency department for possible inpatient rehab given poor functional living at home The ROS documented in this emergency department record has been reviewed and confirmed by me. Those systems with pertinent positive or negative responses have been documented in the HPI. All other systems are other negative and/or noncontributory. PHYSICAL EXAM: General Impression: Alert and oriented x3, not in acute distress HEENT: Small hematoma measuring 1 cm x 1 cm over the right frontal forehead, extra-ocular movements intact, pupils equal and reactive to light bilaterally, mucous membranes moist. Cardiovascular: Heart regular rate and rhythm, S1&S2 audible, no murmurs, rubs or gallops Chest: Lungs clear to auscultation bilaterally, no rhonchi, no wheeze, no rales Abdomen: Bowel sounds present, abdomen soft, non-tender, non-distended, no organomegaly Musculoskeletal: Pulses present and equal in all extremities, no peripheral edema Motor: Power 5/5 bilaterally, no focal deficits noted Neurological: CN II-XII grossly intact, no focal motor or sensory deficits noted Skin: Intact with no visualized rashes Psych: Normal affect and mood ED course: 72-year-old male sent in by primary care physician come to the emergency department for possible inpatient admission for rehab placement.Computed tomography scan of the head and C-spine was obtained showing no acute processes. Chest x-ray was obtained showing no acute processes. At this point there is no clinical suspicion of significant traumatic injury. Discussed patient case with who requests that patient be admitted for likely rehab placement. Patient given analgesics. Disposition Clinical Impression: Fall Disposition: ADMITTED IP TO THIS HOSP Condition: Fair Referrals: Lul Garcia MD [Primary Care Provider] - 1-2 days Decision Time: 11:44
--- NOTE | 2018-03-11 11:34 | CT ---
EXAMINATION TYPE: CT brain cspine wo con DATE OF EXAM: 03/11/2018 COMPARISON: CTs dated 03/07/2018 and 09/01/2015 HISTORY: Fall with subsequent head and neck pain CT DLP: 1232.8 mGycm. Automated Exposure Control for Dose Reduction was Utilized. TECHNIQUE: CT scan of the head and cervical spine are performed without contrast. FINDINGS: There is no acute intracranial hemorrhage, mass effect, or midline shift identified. The ventricles and sulci are again mildly symmetrically prominent compatible with mild age-related volum e loss. The globes are intact. Chronic periosteal thickening is seen of the maxillary sinuses with s urgical antrostomy defects from prior chronic sinusitis. Scant mucosal thickening is present within t he ethmoid sinuses. Remaining paranasal sinuses and mastoid air cells are well aerated. Cervical spine is visualized in its entirety from C1 through upper thoracic levels and demonstrates s atisfactory alignment without evidence of acute fracture or dislocation. Only minimal degenerative ch anges are seen as very minimal uncovertebral hypertrophy without significant spinal canal stenosis no r neural foraminal narrowing. Prevertebral soft tissue appears within normal limits. The C1-C2 artic ulation is unremarkable. There is a 3 mm pulmonary nodule within the right upper lobe with a central punctate calcification. S imilar on the prior low-dose lung CT dated 09/01/2015. There is mild centrilobular emphysematous change s within the visualized lung apices. IMPRESSION: 1. There is no acute fracture or dislocation evident in the cervical spine. 2. No acute intracranial hemorrhage, mass effect, or midline shift is seen. Stable minimal age-relate d cerebral atrophy. 3. Right upper lobe 3 mm pulmonary nodule is seen, similar to the exam of 09/01/2015 and therefore favo red to be benign.
[2018-03-11] MEDS ORDERED: HYDROcodone/APAP 5-325MG 1 EACH TAB PO STA (11:38)
--- NOTE | 2018-03-11 11:41 | XR ---
EXAMINATION TYPE: XR chest 2V DATE OF EXAM: 03/11/2018 COMPARISON: Chest x-ray from 4 days ago. HISTORY: Posterior left-sided pain after fall injury. TECHNIQUE: Frontal and lateral views of the chest are obtained. FINDINGS: Elevation of right hemidiaphragm is redemonstrated. There is chronic parenchymal change wit hout suspicious focal air space opacity, pleural effusion, or pneumothorax seen. The cardiac silhoue tte size is within normal limits. The osseous structures are intact. IMPRESSION: No suspicious new acute cardiopulmonary process.
[2018-03-11] MEDS ORDERED: NALOXONE 0.4 MG/ML 1 ML VIAL IV PRN (11:45)
[2018-03-11] MEDS ORDERED: ALBUTEROL NEBULIZED 2.5 MG/3 ML INHALATION PRN (11:46)
[2018-03-12] MEDS: SYMBICORT 80-4.5 MCG INHALER INHALATION SCH ×2 (07:14→19:19)
[2018-03-12] MEDS: PANTOPRAZOLE 40 MG TABLET PO SCH (08:04)
--- NOTE | 2018-03-12 08:31 | P.HPIM ---
History of Present Illness H&P Date: 03/12/18 Chief Complaint: Chronic headache with gait disturbance and multiple falls. This is a history and physical on a 72-year-old white male who was recently discharged 2 days ago for worsening headache and altered mental status. There is element of opiate dependence and Narcan as outpatient and his headache is much more stable. However, when returning home there is significant gait disturbance and weakness resulting in multiple falls yesterday. The patient was seen and evaluated. The patient is unable to get transferred to [facility] immediately and is now admitted for appropriate therapy with possible inpatient rehab placement. There is significant weakness at home and the family is unable to appropriately take care of him even with home health. Review of Systems Constitutional: Reports fatigue, Reports weakness, Denies chills, Denies fever Eyes: denies blurred vision, denies pain Ears, nose, mouth and throat: Denies headache, Denies sore throat Cardiovascular: Denies chest pain, Denies shortness of breath Respiratory: Denies cough Gastrointestinal: Denies abdominal pain, Denies diarrhea, Denies nausea, Denies vomiting Musculoskeletal: Reports frequent falls Integumentary: Denies pruritus, Denies rash Neurological: Reports gait dysfunction Psychiatric: Denies anxiety, Denies depression Endocrine: Denies fatigue, Denies weight change Past Medical History Past Medical History: Cancer, COPD, GERD/Reflux, GI Bleed, Myocardial Infarction (DC) Additional Past Medical History / Comment(s): Pt recently admitted to [facility] on 01/13 with AMS/generalized weakness, intractable migraine, nausea and vomiting. Other hx: Bladder cancer with BCG and tumor removal, R testicular cancer with orchiectomy/radiation, chronic back and cervical pain, frequent debilitating migraines, bilateral sciatica, upper GI bleeds, hiatal hernia, gastritis, pedersen's palsey Last Myocardial Infarction Date:: 05/25/14 History of Any Multi-Drug Resistant Organisms: None Reported Past Surgical History: Adenoidectomy, Appendectomy, Heart Catheterization, Hernia Repair, Orthopedic Surgery, Tonsillectomy Additional Past Surgical History / Comment(s): 08/03/15 EGD with negative BX and colonoscopy with polypectomy and BX-neg, 05/27/14 normal cardiac cath, several back sx including laminectomy, spinous process removed T11 and T12/cage and arturo , bilateral arthroscopic knee surgeries with one done twice, left/Right, thumb surgeries with rt one having titanium joint, L rotator cuff repair, several nasal polypectomies, RFA cervical/back, R/L inguinal hernia repairs, rt orchiectomy Past Anesthesia/Blood Transfusion Reactions: No Reported Reaction Smoking Status: Former smoker - Past Family History Father Family Medical History: Cancer Additional Family Medical History / Comment(s): Father of stomach ca at the age of 65 yrs. Mother Family Medical History: No Reported History Additional Family Medical History / Comment(s): Mother of "old age". She was 83 yrs old Brother(s) Family Medical History: Diabetes Mellitus Sister(s) Family Medical History: Diabetes Mellitus Additional Family Medical History / Comment(s): breast ca Medications and Allergies Home Medications Medication Instructions Recorded Confirmed Type Fluticasone/Salmeterol [Advair 1 puff INHALATION RT-DAILY 07/10/13 03/11/18 History 250-50 Diskus] Albuterol Nebulized [Ventolin 2.5 mg INHALATION RT-Q4H PRN 09/15/15 03/11/18 History Nebulized] Multivitamins, Thera [Multivitamin 1 tab PO DAILY 10/10/17 03/11/18 History (formulary)] SUMAtriptan SUCCINATE [Onzetra 1 spray EA NOSTRIL DAILY PRN 03/06/18 03/11/18 History Xsail] fentaNYL 25MCG/HR PATCH [Duragesic 1 patch TRANSDERM Q48H #15 patch 03/10/18 Rx 25MCG/HR] Omeprazole [PriLOSEC] 40 mg PO DAILY 03/11/18 03/11/18 History Allergies Allergy/AdvReac Type Severity Reaction Status Date / Time chocolate flavor Allergy Unknown Verified 03/11/18 10:38 Iodinated Contrast- Oral and Allergy Anaphylaxis Verified 03/11/18 10:38 IV Dye [Iodinated Contrast Media - IV Dye] iodine Allergy Anaphylaxis Verified 03/11/18 10:38 Penicillins Allergy Anaphylaxis Verified 03/11/18 10:38 Sulfa (Sulfonamide Allergy Anaphylaxis Verified 03/11/18 10:38 Antibiotics) banana AdvReac HEADACHE Verified 03/11/18 10:38 gabapentin AdvReac Unknown Verified 03/11/18 10:38 tree nut [Nut] AdvReac HEADACHE Verified 03/11/18 10:38 yellow dye AdvReac HEADACHE Verified 03/11/18 10:38 Physical Exam Vitals: Vital Signs Temp Pulse Pulse Resp BP BP Pulse Ox 03/12/18 07:32 60 03/12/18 07:14 60 03/12/18 06:05 97.6 F 60 17 109/66 96 03/11/18 23:00 98.8 F 75 17 103/61 97 03/11/18 18:27 97.4 F L 103 H 18 118/60 98 03/11/18 17:57 97.5 F L 70 18 110/73 96 03/11/18 17:37 70 18 110/73 96 03/11/18 14:38 62 18 107/68 95 03/11/18 10:00 97.5 F L 84 18 106/63 96 Intake and Output 03/11/18 03/12/18 03/12/18 22:59 06:59 14:59 Output Total 100 450 Balance -100 -450 Output: Urine 100 450 Other: Voiding Method Urinal - Constitutional General appearance: no acute distress - EENT Eyes: EOMI - Neck Neck: no lymphadenopathy - Cardiovascular Rhythm: regular Heart sounds: normal: S1, S2 Abnormal Heart Sounds: no S3 Gallop - Gastrointestinal General gastrointestinal: no organomegaly, soft, no tenderness - Neurologic Neurologic: CNII-XII intact Thrombosis Risk Factor Assmnt - Choose All That Apply Any of the Below Risk Factors Present?: Yes Each Factor Represents 1 point: Abnormal pulmonary function (COPD), Medical pt on bed rest Other Risk Factors: Yes Each Risk Factor Represents 2 Points: Age 61-74 years, Patient confined to bed Other congenital or acquired thrombophilia - If yes, enter type in comment: No Thrombosis Risk Factor Assessment Total Risk Factor Score: 6 Thrombosis Risk Factor Assessment Level: High Risk Assessment and Plan (1) COPD (chronic obstructive pulmonary disease) Current Visit: Yes Status: Acute Code(s): J44.9 - CHRONIC OBSTRUCTIVE PULMONARY DISEASE, UNSPECIFIED SNOMED Code(s): 44396227 (2) Fall Current Visit: Yes Status: Acute Code(s): W19.XXXA - UNSPECIFIED FALL, INITIAL ENCOUNTER SNOMED Code(s): 2444669 (3) At risk for readmission to hospital Current Visit: No Status: Acute Code(s): Z91.89 - OTH PERSONAL RISK FACTORS , NOT ELSEWHERE CLASSIFIED SNOMED Code(s): 1855392438066 (4) Generalized weakness Current Visit: No Status: Acute Code(s): R53.1 - WEAKNESS SNOMED Code(s): 96381340 (5) Headache Current Visit: No Status: Acute Code(s): R51 - HEADACHE SNOMED Code(s): 15791060 (6) High risk for readmission Current Visit: No Status: Acute Code(s): Z91.89 - OTH PERSONAL RISK FACTORS , NOT ELSEWHERE CLASSIFIED SNOMED Code(s): 723358972 (7) Hx of nicotine dependence Current Visit: No Status: Acute Code(s): Z87.891 - PERSONAL HISTORY OF NICOTINE DEPENDENCE SNOMED Code(s): 321485738 Plan: Consult physical therapy for rehab and possible placement. Consult discharge planning. Reconcile home medications. See orders otherwise. Prognosis is guarded secondary to his multiple comorbidities and advancing age. Time with Patient: Less than 30
[2018-03-12] MEDS: NAPROXEN 250 MG TAB PO SCH ×2 (09:43→20:31)
[2018-03-12] MEDS: MULTIVITAMINS, THERA 1 EACH TAB PO SCH (12:23)
[2018-03-12 15:34] VITALS: BMI 16.9
[2018-03-13] MEDS: SYMBICORT 80-4.5 MCG INHALER INHALATION SCH (07:02)
--- NOTE | 2018-03-13 07:29 | P.DS ---
Providers Date of admission: 03/11/18 11:45 Attending physician: Lul Garcia Primary care physician: Lul Garcia - Discharge Diagnosis(es) (1) COPD (chronic obstructive pulmonary disease) Current Visit: Yes Status: Acute (2) Fall Current Visit: Yes Status: Acute (3) At risk for readmission to hospital Current Visit: No Status: Acute (4) Generalized weakness Current Visit: Yes Status: Acute (5) Headache Current Visit: Yes Status: Acute (6) High risk for readmission Current Visit: No Status: Acute (7) Hx of nicotine dependence Current Visit: No Status: Acute Hospital Course: This is a discharge summary 70-year-old white male essentially admitted because of multiple falls after being discharged from the hospital for altered mental status chronic headache and probable opiate medication overdose element with her ears fentanyl usage. Is not related to abuse but most likely as he's been aging the medication has become more potent due to his decreasing weight. He has not decreased his dose and he does complain of back pain but his headache seems to be fairly well-controlled. But because of his generalized weakness and gait instability, he will be transferred to rehab element. Patient was discharged in stable condition. Patient Condition at Discharge: Fair Plan - Discharge Summary Discharge Rx Participant: No New Discharge Prescriptions: New fentaNYL 25MCG/HR PATCH [Duragesic 25MCG/HR] 1 patch TRANSDERM Q48H #15 patch Naproxen [Naprosyn] 500 mg PO BID tab Continue Fluticasone/Salmeterol [Advair 250-50 Diskus] 1 puff INHALATION RT-DAILY Albuterol Nebulized [Ventolin Nebulized] 2.5 mg INHALATION RT-Q4H PRN PRN Reason: Shortness Of Breath Multivitamins, Thera [Multivitamin (formulary)] 1 tab PO DAILY SUMAtriptan SUCCINATE [Onzetra Xsail] 1 spray EA NOSTRIL DAILY PRN PRN Reason: Migraine Headache fentaNYL 25MCG/HR PATCH [Duragesic 25MCG/HR] 1 patch TRANSDERM Q48H #15 patch Omeprazole [PriLOSEC] 40 mg PO DAILY Discharge Medication List Fluticasone/Salmeterol [Advair 250-50 Diskus] 1 puff INHALATION RT-DAILY [History] Albuterol Nebulized [Ventolin Nebulized] 2.5 mg INHALATION RT-Q4H PRN 09/15/15 [ History] Multivitamins, Thera [Multivitamin (formulary)] 1 tab PO DAILY 10/10/17 [History ] SUMAtriptan SUCCINATE [Onzetra Xsail] 1 spray EA NOSTRIL DAILY PRN 03/06/18 [ History] fentaNYL 25MCG/HR PATCH [Duragesic 25MCG/HR] 1 patch TRANSDERM Q48H #15 patch [Rx] Omeprazole [PriLOSEC] 40 mg PO DAILY 03/11/18 [History] Naproxen [Naprosyn] 500 mg PO BID tab 03/13/18 [Rx] fentaNYL 25MCG/HR PATCH [Duragesic 25MCG/HR] 1 patch TRANSDERM Q48H #15 patch [Rx] Follow up Appointment(s)/Referral(s): Lul Garcia MD [Primary Care Provider] - 1 Week Discharge Disposition: TRANSFER TO SNF/F
[2018-03-13] MEDS: PANTOPRAZOLE 40 MG TABLET PO SCH (08:12)
[2018-03-13] MEDS: NAPROXEN 250 MG TAB PO SCH (09:21)
[2018-03-13] MEDS: MULTIVITAMINS, THERA 1 EACH TAB PO SCH (15:26)
[2018-03-13 15:47] VITALS: BP 137/79; PULSE 78; RESP 18; TEMP 97.1
== END 2018-03-13 18:23 | DRG 191 ==
LOC: EC 09:57 → 4MS4W 11:45
PROVIDERS: ADMIT Family Medicine; ATTEND Family Medicine
DX: J44.1 Chronic obstructive pulmonary disease with (acute) exacerbation (principal); F11.20 Opioid dependence, uncomplicated; I25.10 Atherosclerotic heart disease of native coronary artery without angina pectoris; I25.2 Old myocardial infarction; K21.9 Gastro-esophageal reflux disease without esophagitis; R29.6 Repeated falls; F32.9 Major depressive disorder, single episode, unspecified; G43.919 Migraine, unspecified, intractable, without status migrainosus; G89.29 Other chronic pain; M54.2 Cervicalgia; M54.9 Dorsalgia, unspecified; K44.9 Diaphragmatic hernia without obstruction or gangrene; R51 Headache; M54.31 Sciatica, right side; M54.32 Sciatica, left side; R26.9 Unspecified abnormalities of gait and mobility; R53.1 Weakness; Z85.51 Personal history of malignant neoplasm of bladder; Z85.47 Personal history of malignant neoplasm of testis; Z91.041 Radiographic dye allergy status; Z91.018 Allergy to other foods; Z88.0 Allergy status to penicillin; Z88.2 Allergy status to sulfonamides; Z91.048 Other nonmedicinal substance allergy status; Z87.891 Personal history of nicotine dependence; Z79.899 Other long term (current) drug therapy; Z86.010 Personal history of colon polyps; Z92.3 Personal history of irradiation; Z90.49 Acquired absence of other specified parts of digestive tract; Z90.79 Acquired absence of other genital organ(s); Z80.0 Family history of malignant neoplasm of digestive organs; Z83.3 Family history of diabetes mellitus; Z80.3 Family history of malignant neoplasm of breast; W19.XXXA Unspecified fall, initial encounter
CPT/HCPCS: 70450; 71046; 72125; 94640; 99285

== ENCOUNTER 2018-05-11 10:02 | Observation (INO) | payer MEDICAID, MEDICARE ==
[2018-05-11] MEDS ORDERED: NALOXONE 0.4 MG/ML 1 ML VIAL IM STA (10:24)
[2018-05-11] MEDS ORDERED: SODIUM CHLORIDE 0.9% 500 ML 500 ML IV ONE (10:24)
--- NOTE | 2018-05-11 10:27 | ED ---
General Adult HPI - General Chief complaint: Altered Mental Status Stated complaint: Overdose, Altered Time Seen by Provider: 05/11/18 10:15 Source: patient, family, EMS, RN notes reviewed, old records reviewed Mode of arrival: EMS Limitations: no limitations - History of Present Illness Initial comments: 72-year-old male presenting with altered level of consciousness, confusion. History obtained from the patient and the patient's spouse. Patient has history of chronic pain, does wear 25 g fentanyl patch. He had similar episode 2 days confusion several months ago which was secondary to opiate overdose. Patient had headache yesterday with one episode of vomiting which is typical for this patient. He does have chronic migraines. He took his prophylactic migraine medicine with some improvement. His noted that he did become more sleepy with mild confusion yesterday evening. This progressed to more lethargy and confusion this morning. When EMS arrived fungal patch was removed, IV hydration was given. Patient was alert and oriented 3 however he was slow to respond. He denies any pain complaints - Related Data Home Medications Medication Instructions Recorded Confirmed Albuterol Nebulized [Ventolin 2.5 mg INHALATION RT-Q4H PRN 09/15/15 05/11/18 Nebulized] Multivitamins, Thera [Multivitamin 1 tab PO DAILY 10/10/17 05/11/18 (formulary)] Omeprazole [PriLOSEC] 40 mg PO DAILY 03/11/18 05/11/18 Glucosam/Abimael-Msm1/C/Mane/Bosw 1 tab PO DAILY 05/11/18 05/11/18 [Glucosamine-Chondroitin Tablet] Ondansetron [Zofran] 4 mg PO Q8HR PRN 05/11/18 05/11/18 fentaNYL 25MCG/HR PATCH [Duragesic 1 patch TRANSDERM Q72H 05/11/18 05/11/18 25MCG/HR] Allergies Allergy/AdvReac Type Severity Reaction Status Date / Time chocolate flavor Allergy Unknown Verified 05/11/18 10:48 Iodinated Contrast- Oral and Allergy Anaphylaxis Verified 05/11/18 10:48 IV Dye [Iodinated Contrast Media - IV Dye] iodine Allergy Anaphylaxis Verified 05/11/18 10:48 Penicillins Allergy Anaphylaxis Verified 05/11/18 10:48 Sulfa (Sulfonamide Allergy Anaphylaxis Verified 05/11/18 10:48 Antibiotics) banana AdvReac HEADACHE Verified 05/11/18 10:48 gabapentin AdvReac Unknown Verified 05/11/18 10:48 tree nut [Nut] AdvReac HEADACHE Verified 05/11/18 10:48 yellow dye AdvReac HEADACHE Verified 05/11/18 10:48 Review of Systems ROS Statement: Those systems with pertinent positive or pertinent negative responses have been documented in the HPI. ROS Other: All systems not noted in ROS Statement are negative. Past Medical History Past Medical History: Cancer, COPD, GERD/Reflux, GI Bleed, Myocardial Infarction (PR) Additional Past Medical History / Comment(s): Pt recently admitted to [facility] on 03/07/18 with AMS/generalized weakness, intractable migraine, nausea and vomiting. Other hx: Bladder cancer with BCG and tumor removal, R testicular cancer with orchiectomy/radiation, chronic back and cervical pain, frequent debilitating migraines, bilateral sciatica, upper GI bleeds, hiatal hernia, gastritis, pedersen's palsey Last Myocardial Infarction Date:: 05/25/14 History of Any Multi-Drug Resistant Organisms: None Reported Past Surgical History: Adenoidectomy, Appendectomy, Heart Catheterization, Hernia Repair, Orthopedic Surgery, Tonsillectomy Additional Past Surgical History / Comment(s): 08/03/15 EGD with negative BX and colonoscopy with polypectomy and BX-neg, 05/27/14 normal cardiac cath, several back sx including laminectomy, spinous process removed T11 and T12/cage and arturo, bilateral arthroscopic knee surgeries with one done twice, left/Right, thumb surgeries with rt one having titanium joint, L rotator cuff repair, several nasal polypectomies, RFA cervical/back, R/L inguinal hernia repairs, rt orchiectomy Past Anesthesia/Blood Transfusion Reactions: No Reported Reaction Past Psychological History: Depression Smoking Status: Former smoker Past Alcohol Use History: None Reported Past Drug Use History: None Reported - Past Family History Father Family Medical History: Cancer Additional Family Medical History / Comment(s): Father of stomach ca at the age of 65 yrs. Mother Family Medical History: No Reported History Additional Family Medical History / Comment(s): Mother of "old age". She was 83 yrs old Brother(s) Family Medical History: Diabetes Mellitus Sister(s) Family Medical History: Diabetes Mellitus Additional Family Medical History / Comment(s): breast ca General Exam Limitations: no limitations General appearance: in no apparent distress, lethargic Head exam: Present: atraumatic, normocephalic Eye exam: Present: PERRL (2 mm, pinpoint bilaterally) ENT exam: Present: mucous membranes dry Respiratory exam: Present: decreased breath sounds. Absent: respiratory distress, wheezes Cardiovascular Exam: Present: regular rate, normal rhythm GI/Abdominal exam: Present: soft. Absent: distended, tenderness, guarding, rebound Extremities exam: Present: normal inspection, normal capillary refill. Absent: pedal edema, calf tenderness Neurological exam: Present: alert, oriented X3, CN II-XII intact. Absent: motor sensory deficit Psychiatric exam: Present: normal affect, normal mood Skin exam: Present: warm, dry, intact. Absent: cyanosis, diaphoretic Course Vital Signs 05/11/18 05/11/18 10:09 10:31 Temperature 99.2 F Pulse Rate 90 Respiratory 15 12 Rate Blood Pressure 114/62 O2 Sat by Pulse 86 L Oximetry EKG Findings - EKG Comments: EKG Findings:: EKG: Normal sinus rhythm, white complex QRS, right bundle branch block, left anterior fascicular block, no ST segment elevation ventricular rate of 87, SD interval 156, QRS duration 120, QTC 464 Medical Decision Making - Medical Decision Making 72-year-old male presenting with confusion, lethargy. Patient has history of chronic pain, does wear fentanyl patch, has had similar episode with overdose on fentanyl. Patch is removed by EMS. He is arousable and alert 3 with some stimulation. History of COPD. History of chronic pain. Nonfocal neurologic exam, workup in the emergency department reveals normal CBC, normal CMP, lactic acid normal influenza negative, chest x-ray negative for focal pneumonia, urinalysis is pending, has not been received at the time of this documentation. Patient given a small dose of Narcan with improvement in symptoms. Given the long-acting nature of this transdermal patch, will admit for close monitoring. We will treat COPD on this admission as well. He was discussed with admitting physician. - Lab Data Result diagrams: 05/11/18 10:22 05/11/18 10:22 Lab Results 05/11/18 05/11/18 05/11/18 Range/Units 10:22 10:22 10:22 WBC 9.1 (3.8-10.6) k/uL RBC 4.69 (4.30-5.90) m/uL Hgb 14.4 (13.0-17.5) gm/dL Hct 45.7 (39.0-53.0) % MCV 97.5 (80.0-100.0) fL MCH 30.6 (25.0-35.0) pg MCHC 31.4 (31.0-37.0) g/dL RDW 14.3 (11.5-15.5) % Plt Count 225 (150-450) k/uL Neutrophils % 76 % Lymphocytes % 12 % Monocytes % 7 % Eosinophils % 1 % Basophils % 0 % Neutrophils # 6.9 (1.3-7.7) k/uL Lymphocytes # 1.1 (1.0-4.8) k/uL Monocytes # 0.6 (0-1.0) k/uL Eosinophils # 0.1 (0-0.7) k/uL Basophils # 0.0 (0-0.2) k/uL PT (9.0-12.0) sec INR (<1.2) APTT (22.0-30.0) sec Sodium 139 (137-145) mmol/L Potassium 4.5 (3.5-5.1) mmol/L Chloride 102 (98-107) mmol/L Carbon Dioxide 30 (22-30) mmol/L Anion Gap 7 mmol/L BUN 18 (9-20) mg/dL Creatinine 0.78 (0.66-1.25) mg/dL Est GFR (CKD-EPI)AfAm >90 (>60 ml/min/1.73 sqM) Est GFR (CKD-EPI)NonAf >90 (>60 ml/min/1.73 sqM) Glucose 103 H (74-99) mg/dL Plasma Lactic Acid Finesse 0.7 (0.7-2.0) mmol/L Calcium 9.0 (8.4-10.2) mg/dL Total Bilirubin 0.7 (0.2-1.3) mg/dL AST 22 (17-59) U/L ALT 32 (21-72) U/L Alkaline Phosphatase 83 (38-126) U/L Total Protein 6.2 L (6.3-8.2) g/dL Albumin 3.3 L (3.5-5.0) g/dL Influenza Type A RNA (Not Detectd) Influenza Type B (PCR) (Not Detectd) 05/11/18 05/11/18 Range/Units 10:22 10:55 WBC (3.8-10.6) k/uL RBC (4.30-5.90) m/uL Hgb (13.0-17.5) gm/dL Hct (39.0-53.0) % MCV (80.0-100.0) fL MCH (25.0-35.0) pg MCHC (31.0-37.0) g/dL RDW (11.5-15.5) % Plt Count (150-450) k/uL Neutrophils % % Lymphocytes % % Monocytes % % Eosinophils % % Basophils % % Neutrophils # (1.3-7.7) k/uL Lymphocytes # (1.0-4.8) k/uL Monocytes # (0-1.0) k/uL Eosinophils # (0-0.7) k/uL Basophils # (0-0.2) k/uL PT 10.8 (9.0-12.0) sec INR 1.0 (<1.2) APTT 28.8 (22.0-30.0) sec Sodium (137-145) mmol/L Potassium (3.5-5.1) mmol/L Chloride (98-107) mmol/L Carbon Dioxide (22-30) mmol/L Anion Gap mmol/L BUN (9-20) mg/dL Creatinine (0.66-1.25) mg/dL Est GFR (CKD-EPI)AfAm (>60 ml/min/1.73 sqM) Est GFR (CKD-EPI)NonAf (>60 ml/min/1.73 sqM) Glucose (74-99) mg/dL Plasma Lactic Acid Finesse (0.7-2.0) mmol/L Calcium (8.4-10.2) mg/dL Total Bilirubin (0.2-1.3) mg/dL AST (17-59) U/L ALT (21-72) U/L Alkaline Phosphatase (38-126) U/L Total Protein (6.3-8.2) g/dL Albumin (3.5-5.0) g/dL Influenza Type A RNA Not Detected (Not Detectd) Influenza Type B (PCR) Not Detected (Not Detectd) Disposition Clinical Impression: COPD (chronic obstructive pulmonary disease), Altered mental status, Accidental overdose Disposition: ADMITTED IP TO THIS HOSP Condition: Stable Is patient prescribed a controlled substance at d/c from ED?: No Referrals: Lul Garcia MD [Primary Care Provider] - 1-2 days Decision to Admit Reason: Admit from EC Decision Date: 05/11/18 Decision Time: 12:21
[2018-05-11 10:48] LABS: Basophils % (A) 0 %; Eosinophils # (A) 0.1 k/uL (0-0.7); Eosinophils % (A) 1 %; HCT 45.7 % (39.0-53.0); HGB 14.4 gm/dL (13.0-17.5); Lymphocytes # (A) 1.1 k/uL (1.0-4.8); Lymphocytes % (A) 12 %; MCH 30.6 pg (25.0-35.0); MCHC 31.4 g/dL (31.0-37.0); MCV 97.5 fL (80.0-100.0); Mean Platelet Volume 7.8; Monocytes # (A) 0.6 k/uL (0-1.0); Monocytes % (A) 7 %; Neutrophils # (A) 6.9 k/uL (1.3-7.7); Neutrophils % (A) 76 %; Platelet Count 225 k/uL (150-450); RBC 4.69 m/uL (4.30-5.90); RDW 14.3 % (11.5-15.5); WBC 9.1 k/uL (3.8-10.6)
[2018-05-11 10:56] LABS: Partial Thromboplastin Time 28.8 sec (22.0-30.0); Prothrombin Time 10.8 sec (9.0-12.0)
[2018-05-11 10:59] LABS: ALT 32 U/L (21-72); AST 22 U/L (17-59); Albumin 3.3 g/dL (3.5-5.0); Alkaline Phosphatase 83 U/L (38-126); Anion Gap 7 mmol/L; Blood Urea Nitrogen 18 mg/dL (9-20); Carbon Dioxide 30 mmol/L (22-30); Chloride 102 mmol/L (98-107); Glucose 103 mg/dL (74-99); Potassium 4.5 mmol/L (3.5-5.1); Sodium 139 mmol/L (137-145); Total Bilirubin 0.7 mg/dL (0.2-1.3); Total Protein 6.2 g/dL (6.3-8.2)
--- NOTE | 2018-05-11 11:00 | XR ---
EXAMINATION TYPE: XR chest 2V DATE OF EXAM: 05/11/2018 COMPARISON: Prior chest x-ray 03/11/[address] 07/06/2016 HISTORY: Altered mental status TECHNIQUE: Frontal and lateral views of the chest are obtained. FINDINGS: Patient's diaphragmatic hernia is again seen. No pneumothorax or evident effusion. Patchy b asilar density persists. Prominent lung volumes suggest underlying COPD. Heart size thought likely to be stable. Interstitium mildly increased. The osseous structures are intact. IMPRESSION: Some probable minimal basilar atelectasis or scarring.
[2018-05-11] MEDS ORDERED: IPRATROPIUM-ALBUTEROL 3 ML NEB INHALATION PRN (12:17)
[2018-05-11] MEDS: SODIUM CHLORIDE 0.9% 1,000 ML IV SCH (12:28)
[2018-05-11] MEDS: ACETAMINOPHEN TAB 325 MG TAB PO PRN ×2 (15:12→21:04)
[2018-05-11] MEDS: IPRATROPIUM-ALBUTEROL 3 ML NEB INHALATION SCH ×2 (15:57→20:00)
[2018-05-11] MEDS: methylPREDNISolone SOD SUCCI 125 MG/2 ML VIAL IV SCH (21:04)
[2018-05-12] MEDS: SODIUM CHLORIDE 0.9% 1,000 ML IV SCH ×2 (00:05→12:34)
[2018-05-12 00:10] LABS: Glucose,Whole Blood 161 mg/dL (75-99)
[2018-05-12] MEDS ORDERED: ONDANSETRON 4 MG TAB PO PRN (00:30)
--- NOTE | 2018-05-12 00:39 | P.HPIM ---
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 Patient has been having chronic migraine headaches. Patient does use fentanyl patch. Patient was recently admitted to the hospital and reduce his fentanyl patch dose from 50 g to 25 g every 72 hours. Patient has been complaining of headache all day. Fentanyl patch has been supposed to be changed on Saturday. Today morning patient woke up and morning and could not get up and walk and was all like this all day. Patient was also having mild temperature at 99.2. Patient was brought to the hospital for further evaluation. Patient was started on IV hydration and fentanyl patch and mold by EMS. Patient is currently awake alert but very slow to respond and could not provide any history. Otherwise denied any complaints of chest pain or shortness of breath. No cough or sputum production. Currently afebrile. No nausea vomiting or diarrhea. Denied any pain otherwise. Patient cannot provide any history at this time and most the history was taken from his at bedside.He had similar episode 2 days confusion several months ago which was secondary to opiate overdose. Chest x-ray showed some probable bilateral minimal bibasilar atelectasis/scarring. EKG showed normal sinus rhythm. Laboratory data reviewed. Influenza negative. Review of Systems Constitutional: Patient denies any fever or chills . No generalized weakness or weight loss. Abdomen: Patient denied nausea vomiting and diarrhea and abdominal pain. Cardiovascular: Patient denies any chest pain or short of breath no palp itations. Respiratory: patient denied any cough is from production. No shortness of breath Neurologic: Patient denied any numbness or tingling headache. Lethargic and confused. Complete review of systems could not be obtained from the patient. \\ Past Medical History Past Medical History: Cancer, COPD, GERD/Reflux, GI Bleed, Myocardial Infarction ([place]) Additional Past Medical History / Comment(s): Pt recently admitted to [facility] on with AMS/generalized weakness, intractable migraine, nausea and vomiting. Other hx: Bladder cancer with BCG and tumor removal, R testicular cancer with orchiectomy/radiation, chronic back and cervical pain, frequent debilitating migraines, bilateral sciatica, upper GI bleeds, hiatal hernia, gastritis, Diego's palsy Last Myocardial Infarction Date:: 05/25/14 History of Any Multi-Drug Resistant Organisms: None Reported Past Surgical History: Adenoidectomy, Appendectomy, Heart Catheterization, Hernia Repair, Orthopedic Surgery, Tonsillectomy Additional Past Surgical History / Comment(s): 08/03/15 EGD with negative BX and colonoscopy with polypectomy and BX-neg, 05/27/14 normal cardiac cath, several back sx including laminectomy, spinous process removed T11 and T12/cage and arturo, bilateral arthroscopic knee surgeries with one done twice, left/Right, thumb surgeries with rt one having titanium joint, L rotator cuff repair, several nasal polypectomies, RFA cervical/back, R/L inguinal hernia repairs, rt orchiectomy Past Anesthesia/Blood Transfusion Reactions: No Reported Reaction Past Psychological History: Depression Additional Psychological History / Comment(s): Pt resides with his spouse of 53 yrs. He has chronic pain and debilitating migraines. He has a cane and walker which he uses prn. He has falls. He drives some but spouse does most of the driving. Spouse works afternoons at [facility] in [facility]. She has a grandchild or cousin who can stay with pt when necessary. Smoking Status: Former smoker Past Alcohol Use History: None Reported Additional Past Alcohol Use History / Comment(s): Pt started smoking in 1959(smoked 1.5 ppd) and quit cigarettes in 2003. Past Drug Use History: None Reported - Past Family History Father Family Medical History: Cancer Additional Family Medical History / Comment(s): Father of stomach ca at the age of 65 yrs. Mother Family Medical History: No Reported History Additional Family Medical History / Comment(s): Mother of "old age". She was 83 yrs old Brother(s) Family Medical History: Diabetes Mellitus Sister(s) Family Medical History: Diabetes Mellitus Additional Family Medical History / Comment(s): breast ca Medications and Allergies Home Medications Medication Instructions Recorded Confirmed Type Albuterol Nebulized [Ventolin 2.5 mg INHALATION RT-Q4H PRN 09/15/15 05/11/18 History Nebulized] Multivitamins, Thera [Multivitamin 1 tab PO DAILY 10/10/17 05/11/18 History (formulary)] Omeprazole [PriLOSEC] 40 mg PO DAILY 03/11/18 05/11/18 History Fluticasone/Salmeterol [Advair 1 inhalation PO DAILY 05/11/18 05/11/18 History 250-50 Diskus] Glucosam/Abimael-Msm1/C/Mane/Bosw 1 tab PO DAILY 05/11/18 05/11/18 History [Glucosamine-Chondroitin Tablet] Ondansetron [Zofran] 4 mg PO Q8HR PRN 05/11/18 05/11/18 History fentaNYL 25MCG/HR PATCH [Duragesic 1 patch TRANSDERM Q72H 05/11/18 05/11/18 History 25MCG/HR] Allergies Allergy/AdvReac Type Severity Reaction Status Date / Time chocolate flavor Allergy Unknown Verified 05/11/18 10:48 Iodinated Contrast- Oral and Allergy Anaphylaxis Verified 05/11/18 10:48 IV Dye [Iodinated Contrast Media - IV Dye] iodine Allergy Anaphylaxis Verified 05/11/18 10:48 Penicillins Allergy Anaphylaxis Verified 05/11/18 10:48 Sulfa (Sulfonamide Allergy Anaphylaxis Verified 05/11/18 10:48 Antibiotics) banana AdvReac HEADACHE Verified 05/11/18 10:48 gabapentin AdvReac Unknown Verified 05/11/18 10:48 tree nut [Nut] AdvReac HEADACHE Verified 05/11/18 10:48 yellow dye AdvReac HEADACHE Verified 05/11/18 10:48 Physical Exam Vitals: Vital Signs Temp Pulse Pulse Resp BP BP Pulse Ox 05/11/18 21:00 98 F 91 16 142/79 100 05/11/18 20:14 78 05/11/18 20:02 76 05/11/18 16:06 78 05/11/18 15:59 78 95 05/11/18 14:21 76 16 128/79 94 L 05/11/18 13:21 98.3 F 05/11/18 13:00 75 13 109/58 96 05/11/18 12:30 76 12 108/59 96 05/11/18 12:00 81 16 121/57 95 05/11/18 11:30 86 11 L 126/67 96 05/11/18 11:00 87 18 116/62 97 05/11/18 10:31 12 05/11/18 10:30 85 14 114/62 98 05/11/18 10:09 99.2 F 90 15 114/62 86 L Intake and Output 05/11/18 05/11/18 05/12/18 14:59 22:59 06:59 Intake Total 175 60 Balance 175 60 Intake: Amount of Fluid Infused ( 100 ml) Intake, IV Titration 75 Amount Sodium Chloride 0.9% 1, 75 000 ml @ 75 mls/hr IV . [id number] AMEE Rx#:[id number] Oral 60 Other: Voiding Method Diaper Incontinent Weight 57.153 kg PHYSICAL EXAMINATION: Patient is lying in the bed comfortably, no acute distress, awake alert and oriented. Confused and lethargic.. HEENT: Normocephalic. Neck is supple. Pupils reactive. Nostrils clear. Oral cavity is moist. Ears reveal no drainage. Neck reveals no JVD, carotid bruits, or thyromegaly. CHEST EXAMINATION: Trachea is central. Symmetrical expansion. Bibasilar diminished air entry. Lung castellanos clear to auscultation and percussion. CARDIAC: Normal S1, S2 with no gallops. No murmurs ABDOMEN: Soft. Nontender. Bowel sounds normal. No organomegaly. No abdominal bruits. Extremities: reveal no edema. No clubbing or cyanosis Neurologically awake, alert, oriented x3 with well-coordinated movements. Lethargic and confused. No focal deficits noted Skin: No rash or skin lesions. Psychiatric: Coperative. Could not be assessed completely. Musculoskeletal: No joint swelling or deformity. Normal range of motion. Results CBC & Chem 7: 05/11/18 10:22 05/11/18 10:22 Labs: Abnormal Lab Results - Last 24 Hours (Table) 05/11/18 Range/Units 10:22 Glucose 103 H (74-99) mg/dL Total Protein 6.2 L (6.3-8.2) g/dL Albumin 3.3 L (3.5-5.0) g/dL Thrombosis Risk Factor Assmnt - DVT/VTE Prophylaxis DVT/VTE Prophylaxis: Pharmacologic Prophylaxis ordered - Choose All That Apply Any of the Below Risk Factors Present?: Yes Each Factor Represents 1 point: Abnormal pulmonary function (COPD) Other Risk Factors: Yes Each Risk Factor Represents 2 Points: Age 61-74 years Other congenital or acquired thrombophilia - If yes, enter type in comment: No Thrombosis Risk Factor Assessment Total Risk Factor Score: 3 Thrombosis Risk Factor Assessment Level: Moderate Risk Assessment and Plan Assessment: Altered mental status possible toxic encephalopathy from fentanyl use. Chronic intractable migraine headache COPD Bibasilar atelectasis/scarring. GERD History of CA and catheterization. no history of PCI History of GI bleed Bladder cancer with BCG and tumor removal Right testicular cancer with orchiectomy/radiation Chronic back and cervical pain Bilateral sciatica Hiatal hernia History of Diego's well seen Previous history of smoking DVT prophylaxis with heparin subcu Plan: tinl cnne on IV hydration. Fentanyl patch has been removed. Continue with breathing treatments and incentive spirometry. Continue with other home medications and follow up closely. Further recommendations based on the clinical course. Discussed with his at bedside in detail. Monitor for any source of infection. Time with Patient: Greater than 30
[2018-05-12] MEDS: SYMBICORT 80-4.5 MCG INHALER INHALATION SCH ×2 (07:09→20:27)
[2018-05-12] MEDS: IPRATROPIUM-ALBUTEROL 3 ML NEB INHALATION SCH ×4 (07:09→20:27)
[2018-05-12] MEDS: ACETAMINOPHEN TAB 325 MG TAB PO PRN (07:15)
[2018-05-12] MEDS: PANTOPRAZOLE 40 MG TABLET PO SCH (07:15)
[2018-05-12] MEDS: methylPREDNISolone SOD SUCCI 125 MG/2 ML VIAL IV SCH ×2 (08:04→21:01)
--- NOTE | 2018-05-12 08:04 | P.PN ---
Subjective Progress Note Date: 05/12/18 Principal diagnosis: Chronic headache. Opiate dependence The patient is now more lucid this morning. His been given Narcan and his fentanyl patch has been removed. He is not complaining of headache. Question dose titration versus other medication for chronic pain. We'll review his medication today. He did eat his whole tray. Objective - Vital Signs Vital signs: Vital Signs Temp 98.1 F 05/12/18 05:00 Pulse 67 05/12/18 05:00 Resp 16 05/12/18 05:00 BP 115/71 05/12/18 05:00 Pulse Ox 95 05/12/18 05:00 Intake & Output 05/11/18 05/12/18 05/12/18 18:59 06:59 18:59 Intake Total 235 Balance 235 Weight 57.153 kg Intake: Amount of Fluid Infused ( 100 ml) Intake, IV Titration 75 Amount Sodium Chloride 0.9% 1, 75 000 ml @ 75 mls/hr IV . [id number] AMEE Rx#:[id number] Oral 60 Other: Voiding Method Diaper Urinal Incontinent Diaper Incontinent # Voids 3 - Constitutional General appearance: Present: thin - EENT Eyes: Absent: abnormal pupil - Respiratory Respiratory: bilateral: CTA - Cardiovascular Rhythm: regular Heart sounds: normal: S1, S2 Abnormal Heart Sounds: Absent: S3 Gallop - Gastrointestinal General gastrointestinal: Present: soft. Absent: tenderness - Integumentary Integumentary: Absent: cellulitis - Neurologic Neurologic: Present: CNII-XII intact - Labs CBC & Chem 7: 05/11/18 10:22 05/11/18 10:22 Labs: Abnormal Lab Results - Last 24 Hours (Table) 05/11/18 05/12/18 Range/Units 10:22 00:05 Glucose 103 H (74-99) mg/dL POC Glucose (mg/dL) 161 H (75-99) mg/dL Total Protein 6.2 L (6.3-8.2) g/dL Albumin 3.3 L (3.5-5.0) g/dL Assessment and Plan (1) Accidental overdose Current Visit: Yes Status: Acute Code(s): T50.901A - POISONING BY UNSP DRUG/MEDS/BIOL SUBST, ACCIDENTAL, INIT SNOMED Code(s): 93441318 (2) At risk for readmission to hospital Current Visit: No Status: Acute Code(s): Z91.89 - OTH PERSONAL RISK FACTORS, NOT ELSEWHERE CLASSIFIED SNOMED Code(s): 9850692387302 (3) Hx of nicotine dependence Current Visit: No Status: Acute Code(s): Z87.891 - PERSONAL HISTORY OF NICOT INE DEPENDENCE SNOMED Code(s): 718064720 (4) Headache, chronic migraine without aura Current Visit: No Status: Chronic Code(s): G43.709 - CHRONIC MIGRAINE W/O AURA, NOT INTRACTABLE, W/O STAT MIGR SNOMED Code(s): 94199980 Plan: Consult neurology if available. We will go ahead and most likely down titrate his patch today. Reconcile home medications. The patient is scheduled for rhizotomy next month. Time with Patient: Less than 30
[2018-05-12] MEDS: HEPARIN SODIUM,PORCINE 5,000 UNIT/ML 1 ML VIAL SQ SCH ×2 (08:05→15:16)
[2018-05-12] MEDS ORDERED: NON-FORMULARY DRUG (Glucosam/Chon-Msm1/C/Mang/Bosw [Glucosamine-Chondroitin Tablet] 1 TAB) PO SCH (09:00)
[2018-05-12] MEDS: oxyCODONE-APAP 7.5-325MG 1 EACH TAB PO PRN ×3 (09:08→21:00)
[2018-05-12] MEDS: DULoxetine HCL 30 MG CAPSULE.DR PO SCH (09:08)
[2018-05-12 10:54] VITALS: BMI 18.6
[2018-05-12] MEDS ORDERED: MULTIVITAMINS, THERA 1 EACH TAB PO SCH (12:00)
[2018-05-12 12:06] LABS: Appearance,Urine Clear (Clear); Bacteria,Urine Many /hpf; Bilirubin,Urine Negative (Negative); Blood,Urine Negative (Negative); Color,Urine Yellow; Glucose,Urine (UA) Negative (Negative); Ketones,Urine Trace (Negative); Leukocyte Esterase,Urine Trace (Negative); Mucus,Urine Rare /hpf; Nitrite,Urine Positive (Negative); PH, Urine 5.5 (5.0-8.0); Protein,Urine Trace (Negative); Specific Gravity,Urine 1.019 (1.001-1.035); Urobilinogen,Urine <2.0 mg/dL (<2.0); WBC,Urine 6 /hpf (0-5)
[2018-05-12 21:29] VITALS: RESP 16
[2018-05-13] MEDS: HEPARIN SODIUM,PORCINE 5,000 UNIT/ML 1 ML VIAL SQ SCH ×2 (00:19→08:36)
[2018-05-13] MEDS: SODIUM CHLORIDE 0.9% 1,000 ML IV SCH (03:59)
[2018-05-13 04:26] VITALS: BP 104/56; TEMP 98
[2018-05-13] MEDS: oxyCODONE-APAP 7.5-325MG 1 EACH TAB PO PRN (05:55)
--- NOTE | 2018-05-13 07:33 | P.DS ---
Providers Date of admission: 05/11/18 12:17 Attending physician: Llu Garcia Primary care physician: Lul Garcia - Discharge Diagnosis(es) (1) Accidental overdose Current Visit: Yes Status: Acute (2) At risk for readmission to hospital Current Visit: No Status: Acute (3) Hx of nicotine dependence Current Visit: No Status: Acute (4) Headache, chronic migraine without aura Current Visit: No Status: Chronic Hospital Course: The patient was admitted for opiate overdose with chronic headache. Dose of medication was down titrated and Cymbalta was added. After discussion with his family, we will decrease the fentanyl dosage to 12 mg and's slowly wean to get him off the fentanyl medication. The and are agreeable to this at this time. The patient will follow-up with me in and 5-7 days. Patient Condition at Discharge: Stable Plan - Discharge Summary Discharge Rx Participant: Yes New Discharge Prescriptions: New DULoxetine HCL [Cymbalta] 30 mg PO DAILY #30 capsule. fentaNYL 12MCG/HR PATCH [Duragesic 12MCG/HR] 1 patch TRANSDERM Q72H 15 Days #5 patch Continue Albuterol Nebulized [Ventolin Nebulized] 2.5 mg INHALATION RT-Q4H PRN PRN Reason: Shortness Of Breath Multivitamins, Thera [Multivitamin (formulary)] 1 tab PO DAILY Omeprazole [PriLOSEC] 40 mg PO DAILY Ondansetron [Zofran] 4 mg PO Q8HR PRN PRN Reason: Nausea Glucosam/Abimael-Msm1/C/Mane/Bosw [Glucosamine-Chondroitin Tablet] 1 tab PO DAILY Fluticasone/Salmeterol [Advair 250-50 Diskus] 1 inhalation PO DAILY Discontinued fentaNYL 25MCG/HR PATCH [Duragesic 25MCG/HR] 1 patch TRANSDERM Q72H Discharge Medication List Albuterol Nebulized [Ventolin Nebulized] 2.5 mg INHALATION RT-Q4H PRN 09/15/15 [History] Multivitamins, Thera [Multivitamin (formulary)] 1 tab PO DAILY 10/10/17 [History] Omeprazole [PriLOSEC] 40 mg PO DAILY 03/11/18 [History] Fluticasone/Salmeterol [Advair 250-50 Diskus] 1 inhalation PO DAILY 05/11/18 [History] Glucosam/Abimael-Msm1/C/Mane/Bosw [Glucosamine-Chondroitin Tablet] 1 tab PO DAILY 05/11/18 [History] Ondansetron [Zofran] 4 mg PO Q8HR PRN 05/11/18 [History] DULoxetine HCL [Cymbalta] 30 mg PO DAILY #30 capsule. 05/13/18 [Rx] fentaNYL 12MCG/HR PATCH [Duragesic 12MCG/HR] 1 patch TRANSDERM Q72H 15 Days #5 patch 05/13/18 [Rx] Follow up Appointment(s)/Referral(s): Lul Garcia MD [Primary Care Provider] - 1 Week Discharge Disposition: HOME SELF-CARE
[2018-05-13] MEDS: IPRATROPIUM-ALBUTEROL 3 ML NEB INHALATION SCH (08:16)
[2018-05-13] MEDS: SYMBICORT 80-4.5 MCG INHALER INHALATION SCH (08:26)
[2018-05-13 08:29] VITALS: PULSE 72
[2018-05-13] MEDS: methylPREDNISolone SOD SUCCI 125 MG/2 ML VIAL IV SCH (08:35)
[2018-05-13] MEDS: PANTOPRAZOLE 40 MG TABLET PO SCH (08:36)
[2018-05-13] MEDS: DULoxetine HCL 30 MG CAPSULE.DR PO SCH (08:36)
== END 2018-05-13 10:30 | disposition home or self-care (01) ==
LOC: EC 10:02 → UNDOADMOB 12:17 → 3NMEDONC 12:17
PROVIDERS: ADMIT Family Medicine; ATTEND Family Medicine
DX: T40.4X1A Poisoning by other synthetic narcotics, accidental (unintentional), initial encounter (principal); G43.719 Chronic migraine without aura, intractable, without status migrainosus; J44.9 Chronic obstructive pulmonary disease, unspecified; K21.9 Gastro-esophageal reflux disease without esophagitis; G89.29 Other chronic pain; M54.9 Dorsalgia, unspecified; M54.2 Cervicalgia; I25.2 Old myocardial infarction; M54.32 Sciatica, left side; M54.31 Sciatica, right side; G51.0 Bell's palsy; F32.9 Major depressive disorder, single episode, unspecified; R41.82 Altered mental status, unspecified; R32 Unspecified urinary incontinence; J98.11 Atelectasis; K44.9 Diaphragmatic hernia without obstruction or gangrene; F11.20 Opioid dependence, uncomplicated; Z87.19 Personal history of other diseases of the digestive system; Z85.51 Personal history of malignant neoplasm of bladder; Z85.47 Personal history of malignant neoplasm of testis; Z92.3 Personal history of irradiation; Z87.891 Personal history of nicotine dependence; Z79.899 Other long term (current) drug therapy; Z91.041 Radiographic dye allergy status; Z91.02 Food additives allergy status; Z91.018 Allergy to other foods; Z88.0 Allergy status to penicillin; Z88.2 Allergy status to sulfonamides; Z88.8 Allergy status to other drugs, medicaments and biological substances; Z91.048 Other nonmedicinal substance allergy status; Z80.0 Family history of malignant neoplasm of digestive organs; Z83.3 Family history of diabetes mellitus; Z80.3 Family history of malignant neoplasm of breast
CPT/HCPCS: 96376 ×2; 96361 ×3; 96372 ×3; 96374; 99285; 36415; 94640 ×6; 94760; 93005; 97162; 80053; 83605; 85025; 85610; 85730; 81001; 87040; 87502; 71046; G0378 ×3; J1644 ×2; J2310; J2930 ×3

== ENCOUNTER → 2018-06-24 | Outpatient (CLI) | payer MEDICAID, MEDICARE ==
--- NOTE | 2018-06-24 11:52 | USB ---
Reason for exam: clinical finding. Indicated problem(s): palpable abnormality in both breasts. Physical Findings: Nurse Summary: 3cm nodule bilaterally painful at times (nurse dw). US Breast BILAT Right complete breast ultrasound includes all four quadrants, the retroareolar region and axilla. Finding demonstrates a 2.3 x 2.4 x 1.2cm oval, irregular, hypoechoic, vascular lesion at the posterior nipple. Left complete breast ultrasound includes all four quadrants, the retroareolar region and axilla. Finding demonstrates a 1.5 x 3.1 x 2.5cm oval, irregular, hypoechoic, vascular lesion the posterior nipple. Appears as gynecomastia sonographically. These results were verbally communicated with the patient and result sheet given to the patient on 06/24/18. ASSESSMENT: Incomplete: need additional imaging evaluation, BI-RAD 0 RECOMMENDATION: Follow-up diagnostic mammogram of both breasts.
--- NOTE | 2018-06-24 11:56 | MM ---
Reason for exam: additional evaluation requested from prior study. Baseline mammogram. [facility] Mammo w CAD MERLIN Bilateral CC and MLO view(s) were taken. There is a 3mm group of right upper inner quadrant calcifications at posterior depth. Additional 2mm lower inner quadrant group at middle depth. These appear punctate and round on magficications views. Retroareolar flame shaped bilateral overall symmetric gynecomastia. These results were verbally communicated with the patient and result sheet given to the patient on 06/24/18. ASSESSMENT: Probably benign, BI-RAD 3 RECOMMENDATION: Follow-up diagnostic mammogram of the right breast in 6 months. Calcifications with a family history of breast cancer. Manage on a clinical basis with regard to bilateral gynecomastia.
== END ==
LOC: RADUSWWP 09:19
PROVIDERS: ATTEND Family Medicine
DX: R92.8 Other abnormal and inconclusive findings on diagnostic imaging of breast (principal); N63.0 Unspecified lump in unspecified breast
CPT/HCPCS: 77066

== ENCOUNTER 2018-07-17 08:46 | Emergency (ER) | payer MEDICAID, MEDICARE ==
[2018-07-17] MEDS ORDERED: ACETAMINOPHEN TAB 500 MG TAB PO STA (08:55)
[2018-07-17] MEDS ORDERED: SODIUM CHLORIDE 0.9% 500 ML IV STA (08:55)
[2018-07-17] MEDS ORDERED: ONDANSETRON 4 MG/2 ML VIAL IVP STA (08:55)
[2018-07-17] MEDS ORDERED: KETOROLAC 30 MG/ML 1 ML VIAL IVP STA (09:10)
--- NOTE | 2018-07-17 09:13 | ED ---
General Adult HPI - General Chief complaint: Headache Stated complaint: migraine Time Seen by Provider: 07/17/18 09:00 Source: patient Mode of arrival: ambulatory Limitations: no limitations - History of Present Illness Initial comments: Dictation was produced using [employer] dictation software. please excuse any grammatical, word or spelling errors. Chief Complaint: 73-year-old male past medical history of migraine headaches presents with headache 1 day. History of Present Illness: She does 73-year-old male. He has history of headaches. Patient states he gets headaches often. He is currently working with his primary care physician for outpatient management of headache control. Patient is to be on opiate patches however it was discovered recently with primary care physician that these have been exacerbating or precipitating his headaches. Patient states that headache is bifrontal with pressure-like sensation and throbbing. Patient reports that he has had headaches like this in the past. He did notice some floaters in his vision prior to the onset of his symptoms. Denies any neurologic deficits. No nausea or vomiting. Patient reports that this headache is like his usual headaches. The ROS documented in this emergency department record has been reviewed and confirmed by me. Those systems with pertinent positive or negative responses have been documented in the HPI. All other systems are other negative and/or noncontributory. PHYSICAL EXAM: General Impression: Alert and oriented x3, not in acute distress HEENT: Normocephalic atraumatic, extra-ocular movements intact, pupils equal and reactive to light bilaterally, mucous membranes moist. Cardiovascular: Heart regular rate and rhythm, S1&S2 audible, no murmurs, rubs or gallops Chest: Lungs clear to auscultation bilaterally, no rhonchi, no wheeze, no rales Abdomen: Bowel sounds present, abdomen soft, non-tender, non-distended, no or ganomegaly Musculoskeletal: Pulses present and equal in all extremities, no peripheral edema Motor: no focal deficits noted Neurological: CN II-XII grossly intact, no focal motor or sensory deficits noted Skin: Intact with no visualized rashes Psych: Normal affect and mood ED course: 73-year-old no clinical presentation consistent with migraine headache. Patient denies any neurologic deficit. Denies that this headache is worse headache of his life. Vital signs upon arrival are within acceptable limits. He reports that this is like his usual headaches that he gets every so often. Patient provided headache cocktail.Patient was urged emergency department. Patient given headache cocktail of her continued to complain of persistent symptoms. Patient given a dose of Imitrex. Patient observed in emergency department for couple hours. Patient reevaluated and reports that his headache is much improved. Patient clear for discharge. Return parameters discussed the patient told to follow-up with primary care physician tomorrow. - Related Data Home Medications Medication Instructions Recorded Confirmed Albuterol Nebulized [Ventolin 2.5 mg INHALATION RT-Q4H PRN 09/15/15 07/17/18 Nebulized] Multivitamins, Thera [Multivitamin 1 tab PO DAILY 10/10/17 07/17/18 (formulary)] Fluticasone/Salmeterol [Advair 1 puff INHALATION RT-DAILY 05/11/18 07/17/18 250-50 Diskus] Acetaminophen Tab [Tylenol Tab] 975 mg PO TID PRN 07/17/18 07/17/18 [id number]-[id number]-[id number] [id number] 1 tab PO TID PRN 07/17/18 07/17/18 [Excedrin] Glucosam/Chond/Hyalu/Cf Borate 1 tab PO DAILY 07/17/18 07/17/18 [Move Free Joint Health Tablet] Allergies Allergy/AdvReac Type Severity Reaction Status Date / Time chocolate flavor Allergy Unknown Verified 07/17/18 09:02 Iodinated Contrast- Oral and Allergy Anaphylaxis Verified 07/17/18 09:02 IV Dye [Iodinated Contrast Media - IV Dye] iodine Allergy Anaphylaxis Verified 07/17/18 09:02 Penicillins Allergy Anaphylaxis Verified 07/17/18 09:02 Sulfa (Sulfonamide Allergy Anaphylaxis Verified 07/17/18 09:02 Antibiotics) banana AdvReac HEADACHE Verified 07/17/18 09:02 gabapentin AdvReac Unknown Verified 07/17/18 09:02 tree nut [Nut] AdvReac HEADACHE Verified 07/17/18 09:02 yellow dye AdvReac HEADACHE Verified 07/17/18 09:02 Review of Systems ROS Statement: Those systems with pertinent positive or pertinent negative responses have been documented in the HPI. ROS Other: All systems not noted in ROS Statement are negative. Past Medical History Past Medical History: Cancer, COPD, GERD/Reflux, GI Bleed, Myocardial Infarction ([place]) Additional Past Medical History / Comment(s): Pt recently admitted to [facility] on 03/07/18 with AMS/generalized weakness, intractable migraine, nausea and vomiting. Other hx: Bladder cancer with BCG and tumor removal, R testicular cancer with orchiectomy/radiation, chronic back and cervical pain, frequent debilitating migraines, bilateral sciatica, upper GI bleeds, hiatal hernia, gastritis, Diego's palsy Last Myocardial Infarction Date:: 05/25/14 History of Any Multi-Drug Resistant Organisms: None Reported Past Surgical History: Adenoidectomy, Appendectomy, Heart Catheterization, Hernia Repair, Orthopedic Surgery, Tonsillectomy Additional Past Surgical History / Comment(s): 08/03/15 EGD with negative BX and colonoscopy with polypectomy and BX-neg, 05/27/14 normal cardiac cath, several back sx including laminectomy, spinous process removed T11 and T12/cage and arturo, bilateral arthroscopic knee surgeries with one done twice, left/Right, thumb surgeries with rt one having titanium joint, L rotator cuff repair, several nasal polypectomies, RFA cervical/back, R/L inguinal hernia repairs, rt orchiectomy Past Anesthesia/Blood Transfusion Reactions: No Reported Reaction Past Psychological History: Depression Smoking Status: Former smoker Past Alcohol Use History: None Reported Past Drug Use History: None Reported - Past Family History Father Family Medical History: Cancer Additional Family Medical History / Comment(s): Father of stomach ca at the age of 65 yrs. Mother Family Medical History: No Reported History Additional Family Medical History / Comment(s): Mother of "old age". She was 83 yrs old Brother(s) Family Medical History: Diabetes Mellitus Sister(s) Family Medical History: Diabetes Mellitus Additional Family Medical History / Comment(s): breast ca General Exam Limitations: no limitations Course Vital Signs 07/17/18 07/17/18 08:52 10:57 Temperature 98.2 F 97.5 F L Pulse Rate 82 70 Respiratory 20 18 Rate Blood Pressure 164/97 174/94 O2 Sat by Pulse 96 96 Oximetry Disposition Clinical Impression: Headache Disposition: HOME SELF-CARE Condition: Good Instructions (If sedation given, give patient instructions): Acute Headache (ED) Is patient prescribed a controlled substance at d/c from ED?: No Referrals: Lul Garcia MD [Primary Care Provider] - 1-2 days Time of Disposition: 11:16
[2018-07-17] MEDS ORDERED: SUMAtriptan SUCCINATE 6 MG/0.5 ML VIAL SQ STA (10:22)
[2018-07-17 11:53] VITALS: BP 157/80; PULSE 66; RESP 17; TEMP 97.8
== END 2018-07-17 11:57 | disposition home or self-care (01) ==
LOC: EC 08:46
DX: R51 Headache (principal); J44.9 Chronic obstructive pulmonary disease, unspecified; I25.2 Old myocardial infarction; Z86.69 Personal history of other diseases of the nervous system and sense organs; Z85.51 Personal history of malignant neoplasm of bladder; Z85.47 Personal history of malignant neoplasm of testis; Z79.51 Long term (current) use of inhaled steroids; Z79.899 Other long term (current) drug therapy; Z91.018 Allergy to other foods; Z91.041 Radiographic dye allergy status; Z88.0 Allergy status to penicillin; Z88.2 Allergy status to sulfonamides; Z88.8 Allergy status to other drugs, medicaments and biological substances; Z91.048 Other nonmedicinal substance allergy status; Z95.818 Presence of other cardiac implants and grafts; Z87.891 Personal history of nicotine dependence
CPT/HCPCS: 99283; 96374; 96375; J3030; J2405; J1885

== ENCOUNTER → 2018-08-15 | Outpatient (CLI) | payer MEDICAID, MEDICARE ==
--- NOTE | 2018-08-15 10:44 | US ---
EXAMINATION TYPE: US abdomen complete DATE OF EXAM: 08/15/2018 COMPARISON: US 2019 CLINICAL HISTORY: R10.9 Unspecified abdominal pain. Intermittent abdomen pain and bloating x couple m ont EXAM MEASUREMENTS: Liver Length: 15.1 cm Gallbladder Wall: 0.3 cm CBD: 0.3 cm Spleen: 11.0 cm Right Kidney: 9.2 x 4.2 x 4.5 cm Left Kidney: 10.5 x 4.6 x 5.3 cm Extremely difficult and limited study due to overlying bowel gas and rib shadowing Pancreas: obscured by overlying midline bowel gas Liver: visualized portions wnl, liver not seen with patient supine due to overlying bowel gas Gallbladder: possible low levels echos seen within dependant portion, gallbladder not seen with davy ent supine due to overlying bowel gas Evidence for sonographic Moscoso's sign: no CBD: visualized portions wnl Spleen: visualized portions wnl Right Kidney: visualized portions wnl Left Kidney: visualized portions wnl Upper IVC: wnl Abd Aorta: prox portion obscured, mid and distal portions wnl IMPRESSION: 1. The pancreatic ductal dilatation seen on the prior ultrasound of 03/10/2018 cannot be reassessed gi ward the pancreas is obscured by overlying bowel gas. Again three-phase enhanced CT (pancreatic mass p rotocol) or MRCP with and without contrast could be performed for further evaluation. 2. The previously seen coarsened hepatic echotexture likely related to artifact on the prior examinat ion given for penetration as the visualized portions of the liver display a normal echotexture. Howev er again the liver is only partially visualized. 3. Minimal gallbladder sludge. No sonographic evidence of acute cholecystitis.
== END | disposition home or self-care (01) ==
LOC: RADUSWWP 09:45
PROVIDERS: ATTEND Family Medicine
DX: K86.89 Other specified diseases of pancreas (principal); K82.8 Other specified diseases of gallbladder
CPT/HCPCS: 76700

== ENCOUNTER → 2018-09-02 | Outpatient (CLI) | payer MEDICAID, MEDICARE ==
--- NOTE | 2018-09-02 15:32 | NM ---
Nuclear medicine hepatobiliary scan. HISTORY: Pain. DOSAGE: The patient statement 8 ounces of Ensure Plus and 4.5 mCi of Technetium 99m Choletec. FINDINGS: There is normal hepatic extraction. There appears to be variant anatomy which is concordan t with the CT scan. The gallbladder is seen by 20 minutes. There is biliary to bowel clearance by 20 minutes. Ejection fraction is 73%. IMPRESSION: 1. Normal hepatobiliary exam
== END | disposition home or self-care (01) ==
LOC: RADNMMAIN 12:35
PROVIDERS: ATTEND Family Medicine
DX: R10.9 Unspecified abdominal pain (principal)
CPT/HCPCS: 78226; A9537

== ENCOUNTER 2018-09-15 10:14 | Emergency (ER) | payer MEDICAID, MEDICARE ==
[2018-09-15 10:23] VITALS: PULSE 69; RESP 16
[2018-09-15] MEDS ORDERED: diphenhydrAMINE 50 MG/ML 1 ML VIAL IVP STA (10:40)
[2018-09-15] MEDS ORDERED: methylPREDNISolone SOD SUCCI 125 MG/2 ML VIAL IV STA (10:40)
[2018-09-15] MEDS ORDERED: FAMOTIDINE 20 MG/2 ML VIAL IV STA (10:40)
[2018-09-15] MEDS ORDERED: SODIUM CHLORIDE 0.9% 1,000 ML IV STA (10:40)
[2018-09-15] MEDS ORDERED: KETOROLAC 30 MG/ML 1 ML VIAL IVP STA (10:40)
--- NOTE | 2018-09-15 11:12 | ED ---
Abdominal Pain HPI - General Chief Complaint: Abdominal Pain Stated Complaint: abd pain Time Seen by Provider: 09/15/18 10:25 Source: patient, RN notes reviewed Mode of arrival: wheelchair Limitations: no limitations - History of Present Illness Initial Comments: 73-year-old male presented to emergency department with chief complaint of worsening right-sided abdominal pain. Patient states his been worsening over the last month or so. Patient has been evaluated by PCP in which she's had an ultrasound, HIDA scan and MRCP. MRCP showed evidence of dilated ducts concern for choledocholithiasis this was performed several weeks ago. Patient states pa in is worsened the point where he cannot eat he does have an appointment with Dr. Padilla. Patient denies any current nausea vomiting diarrhea constipation no fevers or chills. - Related Data Home Medications Medication Instructions Recorded Confirmed Omeprazole 40 mg PO DAILY 08/17/18 09/15/18 Albuterol Nebulized [Ventolin 2.5 mg INHALATION QID PRN 09/15/18 09/15/18 Nebulized] Sucralfate [Carafate] 1 gm PO QID 09/15/18 09/15/18 Previous Rx's Medication Instructions Recorded Fluticasone/Salmeterol [Advair 2 puff INHALATION RT-BID #1 08/19/18 250-50 Diskus] blst.w.dev Bisacodyl [Dulcolax] 5 mg PO DAILY #20 tablet. 09/15/18 Allergies Allergy/AdvReac Type Severity Reaction Status Date / Time chocolate flavor Allergy Unknown Verified 09/15/18 10:57 Iodinated Contrast- Oral and Allergy Anaphylaxis Verified 09/15/18 10:57 IV Dye [Iodinated Contrast Media - IV Dye] iodine Allergy Anaphylaxis Verified 09/15/18 10:57 Penicillins Allergy Anaphylaxis Verified 09/15/18 10:57 Sulfa (Sulfonamide Allergy Anaphylaxis Verified 09/15/18 10:57 Antibiotics) banana AdvReac HEADACHE Verified 09/15/18 10:57 gabapentin AdvReac Unknown Verified 09/15/18 10:57 tree nut [Nut] AdvReac HEADACHE Verified 09/15/18 10:57 yellow dye AdvReac HEADACHE Verified 09/15/18 10:57 Review of Systems ROS Statement: Those systems with pertinent positive or pertinent negative responses have been documented in the HPI. ROS Other: All systems not noted in ROS Statement are negative. Past Medical History Past Medical History: Cancer, COPD, GERD/Reflux, GI Bleed, Myocardial Infarction ([place]) Additional Past Medical History / Comment(s): Pt recently admitted to [facility] on 03/07/18 with AMS/generalized weakness, intractable migraine, nausea and vomiting. Other hx: Bladder cancer with BCG and tumor removal, R testicular cancer with orchiectomy/radiation, chronic back and cervical pain, frequent debilitating migraines, bilateral sciatica, upper GI bleeds, hiatal hernia, gastritis, Diego's palsy Last Myocardial Infarction Date:: 05/25/14 History of Any Multi-Drug Resistant Organisms: None Reported Past Surgical History: Adenoidectomy, Appendectomy, Heart Catheterization, Hernia Repair, Orthopedic Surgery, Tonsillectomy Additional Past Surgical History / Comment(s): 08/03/15 EGD with negative BX and colonoscopy with polypectomy and BX-neg, 05/27/14 normal cardiac cath, several back sx including laminectomy, spinous process removed T11 and T12/cage and arturo, bilateral arthroscopic knee surgeries with one done twice, left/Right, thumb surgeries with rt one having titanium joint, L rotator cuff repair, several nasal polypectomies, RFA cervical/back, R/L inguinal hernia repairs, rt orchiectomy Past Anesthesia/Blood Transfusion Reactions: No Reported Reaction Past Psychological History: Depression Smoking Status: Former smoker Past Alcohol Use History: None Reported Past Drug Use History: None Reported - Past Family History Father Family Medical History: Cancer Additional Family Medical History / Comment(s): Father of stomach ca at the age of 65 yrs. Mother Family Medical History: No Reported History Additional Family Medical History / Comment(s): Mother of "old age". She was 83 yrs old Brother(s) Family Medical History: Diabetes Mellitus Sister(s) Family Medical History: Diabetes Mellitus Additional Family Medical History / Comment(s): breast ca General Exam Limitations: no limitations General appearance: alert, in no apparent distress Head exam: Present: atraumatic, normocephalic, normal inspection Eye exam: Present: normal appearance, PERRL, EOMI. Absent: scleral icterus, conjunctival injection, periorbital swelling ENT exam: Present: normal exam, normal oropharynx, mucous membranes moist Neck exam: Present: normal inspection, full ROM. Absent: tenderness, men ingismus, lymphadenopathy Respiratory exam: Present: normal lung sounds bilaterally. Absent: respiratory distress, wheezes, rales, rhonchi, stridor Cardiovascular Exam: Present: regular rate, normal rhythm, normal heart sounds. Absent: systolic murmur, diastolic murmur, rubs, gallop, clicks GI/Abdominal exam: Present: soft, tenderness, normal bowel sounds. Absent: distended, guarding, rebound, rigid Course Vital Signs 09/15/18 10:22 Temperature 98.2 F Pulse Rate 69 Respiratory 16 Rate Blood Pressure 162/95 O2 Sat by Pulse 94 L Oximetry Medical Decision Making - Medical Decision Making 73-year-old male presented for abdominal pain. This has been worsening progressively abdominal pain. Patient did have labs, CT today. CT shows moderate stool burden, dilated pain., Diverticulosis with no signs of diverticulitis. Patient has an appointment in [address] Bishop. I did advise him to call for sooner appointment. Patient will be given Dulcolax home with. Patient agrees with this plan and will return for any worsening symptoms. - Lab Data Result diagrams: 09/15/18 11:03 09/15/18 11:03 Lab Results 09/15/18 09/15/18 09/15/18 Range/Units 11:03 11:03 11:03 WBC 5.8 (3.8-10.6) k/uL RBC 4.81 (4.30-5.90) m/uL Hgb 15.4 (13.0-17.5) gm/dL Hct 47.2 (39.0-53.0) % MCV 98.0 (80.0-100.0) fL MCH 32.0 (25.0-35.0) pg MCHC 32.6 (31.0-37.0) g/dL RDW 15.3 (11.5-15.5) % Plt Count 219 (150-450) k/uL Neutrophils % 59 % Lymphocytes % 27 % Monocytes % 7 % Eosinophils % 3 % Basophils % 1 % Neutrophils # 3.4 (1.3-7.7) k/uL Lymphocytes # 1.6 (1.0-4.8) k/uL Monocytes # 0.4 (0-1.0) k/uL Eosinophils # 0.2 (0-0.7) k/uL Basophils # 0.0 (0-0.2) k/uL Sodium 141 (137-145) mmol/L Potassium 4.5 (3.5-5.1) mmol/L Chloride 104 (98-107) mmol/L Carbon Dioxide 31 H (22-30) mmol/L Anion Gap 6 mmol/L BUN 23 H (9-20) mg/dL Creatinine 0.72 (0.66-1.25) mg/dL Est GFR (CKD-EPI)AfAm >90 (>60 ml/min/1.73 sqM) Est GFR (CKD-EPI)NonAf >90 (>60 ml/min/1.73 sqM) Glucose 90 (74-99) mg/dL Plasma Lactic Acid Finesse 0.9 (0.7-2.0) mmol/L Calcium 9.2 (8.4-10.2) mg/dL Total Bilirubin 0.8 (0.2-1.3) mg/dL AST 36 (17-59) U/L ALT 46 (21-72) U/L Alkaline Phosphatase 59 (38-126) U/L Total Protein 6.2 L (6.3-8.2) g/dL Albumin 3.8 (3.5-5.0) g/dL Lipase 99 (23-300) U/L Urine Color Urine Appearance (Clear) Urine pH (5.0-8.0) Ur Specific [place] (1.001-1.035) Urine Protein (Negative) Urine Glucose (UA) (Negative) Urine Ketones (Negative) Urine Blood (Negative) Urine Nitrite (Negative) Urine Bilirubin (Negative) Urine Urobilinogen (<2.0) mg/dL Ur Leukocyte Esterase (Negative) 09/15/18 Range/Units 13:25 WBC (3.8-10.6) k/uL RBC (4.30-5.90) m/uL Hgb (13.0-17.5) gm/dL Hct (39.0-53.0) % MCV (80.0-100.0) fL MCH (25.0-35.0) pg MCHC (31.0-37.0) g/dL RDW (11.5-15.5) % Plt Count (150-450) k/uL Neutrophils % % Lymphocytes % % Monocytes % % Eosinophils % % Basophils % % Neutrophils # (1.3-7.7) k/uL Lymphocytes # (1.0-4.8) k/uL Monocytes # (0-1.0) k/uL Eosinophils # (0-0.7) k/uL Basophils # (0-0.2) k/uL Sodium (137-145) mmol/L Potassium (3.5-5.1) mmol/L Chloride (98-107) mmol/L Carbon Dioxide (22-30) mmol/L Anion Gap mmol/L BUN (9-20) mg/dL Creatinine (0.66-1.25) mg/dL Est GFR (CKD-EPI)AfAm (>60 ml/min/1.73 sqM) Est GFR (CKD-EPI)NonAf (>60 ml/min/1.73 sqM) Glucose (74-99) mg/dL Plasma Lactic Acid Finesse (0.7-2.0) mmol/L Calcium (8.4-10.2) mg/dL Total Bilirubin (0.2-1.3) mg/dL AST (17-59) U/L ALT (21-72) U/L Alkaline Phosphatase (38-126) U/L Total Protein (6.3-8.2) g/dL Albumin (3.5-5.0) g/dL Lipase (23-300) U/L Urine Color Yellow Urine Appearance Clear (Clear) Urine pH 5.5 (5.0-8.0) Ur Specific [place] 1.022 (1.001-1.035) Urine Protein Negative (Negative) Urine Glucose (UA) Negative (Negative) Urine Ketones Negative (Negative) Urine Blood Negative (Negative) Urine Nitrite Negative (Negative) Urine Bilirubin Negative (Negative) Urine Urobilinogen <2.0 (<2.0) mg/dL Ur Leukocyte Esterase Negative (Negative) Disposition Clinical Impression: Constipation, Abdominal pain Disposition: HOME SELF-CARE Condition: Stable Instructions (If sedation given, give patient instructions): Abdominal Pain (ED) Additional Instructions: Please return to the Emergency Department if symptoms worsen or any other concerns. Prescriptions: Bisacodyl [Dulcolax] 5 mg PO DAILY #20 tablet.dr Is patient prescribed a controlled substance at d/c from ED?: No Referrals: Bonnie Padilla MD [Family Provider] - 1-2 days Time of Disposition: 13:58
[2018-09-15 11:55] LABS: ALT 46 U/L (21-72); AST 36 U/L (17-59); African American GFR (CKD) >90 (>60 ml/min/1.73 sqM); Albumin 3.8 g/dL (3.5-5.0); Alkaline Phosphatase 59 U/L (38-126); Anion Gap 6 mmol/L; Blood Urea Nitrogen 23 mg/dL (9-20); Calcium 9.2 mg/dL (8.4-10.2); Carbon Dioxide 31 mmol/L (22-30); Chloride 104 mmol/L (98-107); Glucose 90 mg/dL (74-99); Lipase 99 U/L (23-300); Potassium 4.5 mmol/L (3.5-5.1); Sodium 141 mmol/L (137-145); Total Bilirubin 0.8 mg/dL (0.2-1.3); Total Protein 6.2 g/dL (6.3-8.2)
[2018-09-15 12:08] LABS: Basophils % (A) 1 %; Eosinophils # (A) 0.2 k/uL (0-0.7); Eosinophils % (A) 3 %; HCT 47.2 % (39.0-53.0); HGB 15.4 gm/dL (13.0-17.5); Lymphocytes # (A) 1.6 k/uL (1.0-4.8); Lymphocytes % (A) 27 %; MCHC 32.6 g/dL (31.0-37.0); Mean Platelet Volume 7.1; Monocytes # (A) 0.4 k/uL (0-1.0); Monocytes % (A) 7 %; Neutrophils # (A) 3.4 k/uL (1.3-7.7); Neutrophils % (A) 59 %; Platelet Count 219 k/uL (150-450); RBC 4.81 m/uL (4.30-5.90); RDW 15.3 % (11.5-15.5); WBC 5.8 k/uL (3.8-10.6)
--- NOTE | 2018-09-15 13:36 | CT ---
EXAMINATION TYPE: CT abdomen pelvis w con DATE OF EXAM: 09/15/2018 COMPARISON: 07/06/2016 HISTORY: 73-year-old male with abdominal pain TECHNIQUE: Contiguous axial scanning of the abdomen and pelvis following administration of 100 ml Iso rohini 300 IV contrast. Delayed images through the kidneys and coronal/sagittal reconstructions perform ed. CT DLP: 584.1 mGycm Automated exposure control for dose reduction was used. FINDINGS: Heart normal size without pericardial effusion. Strandy atelectasis or scarring in the visualized low er lungs. Asymmetric elevation of the right hemidiaphragm is unchanged. The hepatic dome is incompletely imaged . 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 Of the visualized portion of the liver, no focal lesion is seen. Portal venous system is patent. No b iliary ductal dilatation identified. Gallbladder incompletely visualized. Visualized portion shows no gross abnormality. Adrenal glands and spleen appear within normal limits. Tiny subcentimeter cortical hypodensity anteri or lower pole right kidney too small for accurate CT characterization, unchanged from 2017 compatible with a cyst. 4 mm nonobstructive left renal calculus. Stable mild diffuse dilatation of the main pancreatic duct of 3.5 mm. No distal obstructing lesion is seen Motion artifact in the abdomen from breathing. No dilated small bowel, free fluid, or free air. Mild atherosclerotic calcifications abdominal aorta and iliac arteries. Moderate stool burden. No pericolonic inflammatory change. Mid to distal sigmoid diverticulosis. Bladder partially distended. Prostate gland shows similar patchy heterogeneous enhancement within the correlated with PSA values. Prostate gland upper limits of normal in size at 14.0 cm. No abnormal fl uid collection in the pelvis or pelvic lymphadenopathy. Bones: Postsurgical changes of anterior and posterior lumbar fusion from L4 through S1 levels with gr rashad 2, nearly grade 3 anterolisthesis at L5-S1. Stable focal sclerosis along the anterior margin of t he right iliac wing. IMPRESSION: 1. Mid to distal sigmoid diverticulosis. No convincing findings of acute diverticulitis. 2. Nonobstructive 4 mm left renal calculus. 3. Moderate stool burden. 4. Patchy heterogeneous enhancement of the prostate gland appears similar to 2017. This can be correl ated with PSA values. 5. Stable mild diffuse dilatation of the main pancreatic duct at 3.5 mm. Questionable clinical signif icance given its stability.
[2018-09-15 13:47] LABS: Appearance,Urine Clear (Clear); Bilirubin,Urine Negative (Negative); Blood,Urine Negative (Negative); Color,Urine Yellow; Glucose,Urine (UA) Negative (Negative); Ketones,Urine Negative (Negative); Leukocyte Esterase,Urine Negative (Negative); Nitrite,Urine Negative (Negative); PH, Urine 5.5 (5.0-8.0); Protein,Urine Negative (Negative); Specific Gravity,Urine 1.022 (1.001-1.035); Urobilinogen,Urine <2.0 mg/dL (<2.0)
[2018-09-15 14:09] VITALS: BP 155/91; TEMP 97.2
== END 2018-09-15 14:11 | disposition home or self-care (01) ==
LOC: EC 10:14
DX: K59.00 Constipation, unspecified (principal); K57.30 Diverticulosis of large intestine without perforation or abscess without bleeding; K83.8 Other specified diseases of biliary tract; J44.9 Chronic obstructive pulmonary disease, unspecified; K21.9 Gastro-esophageal reflux disease without esophagitis; I25.2 Old myocardial infarction; Z87.891 Personal history of nicotine dependence; Z88.0 Allergy status to penicillin; Z88.2 Allergy status to sulfonamides; Z88.8 Allergy status to other drugs, medicaments and biological substances; Z91.02 Food additives allergy status; Z91.018 Allergy to other foods; Z91.041 Radiographic dye allergy status; Z91.048 Other nonmedicinal substance allergy status; Z79.899 Other long term (current) drug therapy; Z85.51 Personal history of malignant neoplasm of bladder; Z85.47 Personal history of malignant neoplasm of testis; Z92.3 Personal history of irradiation; Z90.79 Acquired absence of other genital organ(s); Z92.25 Personal history of immunosuppression therapy; Z87.19 Personal history of other diseases of the digestive system; Z95.818 Presence of other cardiac implants and grafts; Z90.49 Acquired absence of other specified parts of digestive tract; Z98.890 Other specified postprocedural states; Z80.0 Family history of malignant neoplasm of digestive organs
CPT/HCPCS: 36415; 80053; 83605; 83690; 85025; 81003; 74177; 99284; 96374; 96375 ×3; 96361 ×2; J1200; J2930; J1885; Q9967

== ENCOUNTER 2018-11-28 08:56 | Emergency (ER) | payer MEDICAID, MEDICARE ==
[2018-11-28 09:10] VITALS: BP 127/81; PULSE 87; RESP 16; TEMP 97.5
[2018-11-28] MEDS ORDERED: methylPREDNISolone SOD SUCCI 125 MG/2 ML VIAL IV STA (09:35)
[2018-11-28] MEDS ORDERED: diphenhydrAMINE 50 MG/ML 1 ML VIAL IVP STA (09:35)
[2018-11-28] MEDS ORDERED: FAMOTIDINE 20 MG/2 ML VIAL IV STA (09:35)
[2018-11-28] MEDS ORDERED: KETOROLAC 30 MG/ML 1 ML VIAL IVP STA (09:36)
--- NOTE | 2018-11-28 09:39 | ED ---
General Adult HPI - General Chief complaint: Abdominal Pain Stated complaint: Hernia Time Seen by Provider: 11/28/18 09:04 Source: patient, family Mode of arrival: wheelchair Limitations: no limitations - History of Present Illness Initial comments: Dictation was produced using [employer] dictation software. please excuse any grammatical, word or spelling errors. Chief Complaint: 73-year-old male with past medical history of multiple abdominal hernias presents with right lower quadrant abdominal pain. History of Present Illness: Patient is a 73-year-old male approximately one month ago he had a diaphragmatic hernia repair performed at [facility]. Patient states that he's been suffering from right lower quadrant abdominal hernia for the last 6-7 months. After the diaphragmatic hernia repair feels like his right lower quadrant abdominal hernia has been getting worse. Patient states that since last night his pain has been getting tickling worse. States that he feels as though the hernia is popping out more than usual. Does complain of some nausea but no vomiting. Patient reports that he has having worsening pain with eating. Denies any fever, chills or night sweats. Patient made an attempt to try to reduce the hernia himself however was too painful. The ROS documented in this emergency department record has been reviewed and confirmed by me. Those systems with pertinent positive or negative responses have been documented in the HPI. All other systems are other negative and/or noncontributory. PHYSICAL EXAM: General Impression: Alert and oriented x3, not in acute distress HEENT: Normocephalic atraumatic, extra-ocular movements intact, pupils equal and reactive to light bilaterally, mucous membranes moist. Cardiovascular: Heart regular rate and rhythm, S1&S2 audible, no murmurs, rubs or gallops Chest: Lungs clear to auscultation bilaterally, no rhonchi, no wheeze, no rales, right chest surgical scar is clean dry and intact Abdomen: Bowel sounds present, right lower quadrant abdominal hernia at the lateral ventral site. Musculoskeletal: Pulses present and equal in all extremities, no peripheral edema Motor: no focal deficits noted Neurological: CN II-XII grossly intact, no focal motor or sensory deficits noted Skin: Intact with no visualized rashes Psych: Normal affect and mood ED course: 73-year-old male presents with nonreducible painful hernia. Sanches upon arrival shows findings within acceptable limits. An attempt was made to maintain reduce her hernia at bedside. Unable to reduce the hernia. There is concern of incarcerated versus strain related hernia. Laboratory evaluation obtained showing no acute processes. CT of the abdomen and pelvis did not identify any hernia at the site. CT was reviewed by myself showing no subcutaneous mass identifiable on CT. This point is unclear what the palpable mass is to his right anterior abdomen. He does have outpatient general surgeon. He is told to address this with a surgeon. Patient given Lidoderm patch to the site. Return parameters discussed. Patient was discharged. Presentation consistent with subcutaneous abdominal mass. - Related Data Home Medications Medication Instructions Recorded Confirmed Omeprazole 40 mg PO DAILY 08/17/18 09/15/18 Albuterol Nebulized [Ventolin 2.5 mg INHALATION QID PRN 09/15/18 09/15/18 Nebulized] Sucralfate [Carafate] 1 gm PO QID 09/15/18 09/15/18 Previous Rx's Medication Instructions Recorded Fluticasone/Salmeterol [Advair 2 puff INHALATION RT-BID #1 08/19/18 250-50 Diskus] blst.w.dev Bisacodyl [Dulcolax] 5 mg PO DAILY #20 tablet. 09/15/18 Allergies Allergy/AdvReac Type Severity Reaction Status Date / Time chocolate flavor Allergy Unknown Verified 11/28/18 09:07 Iodinated Contrast Media Allergy Anaphylaxis Verified 11/28/18 09:07 [Iodinated Contrast Media - IV Dye] iodine Allergy Anaphylaxis Verified 11/28/18 09:07 Penicillins Allergy Anaphylaxis Verified 11/28/18 09:07 Sulfa (Sulfonamide Allergy Anaphylaxis Verified 11/28/18 09:07 Antibiotics) banana AdvReac HEADACHE Verified 11/28/18 09:07 gabapentin AdvReac Unknown Verified 11/28/18 09:07 tree nut [Nut] AdvReac HEADACHE Verified 11/28/18 09:07 yellow dye AdvReac HEADACHE Verified 11/28/18 09:07 Review of Systems ROS Statement: Those systems with pertinent positive or pertinent negative responses have been documented in the HPI. ROS Other: All systems not noted in ROS Statement are negative. Past Medical History Past Medical History: Cancer, COPD, GERD/Reflux, GI Bleed, Myocardial Infarction ([place]) Additional Past Medical History / Comment(s): Pt recently admitted to [facility] on 03/07/18 with AMS/generalized weakness, intractable migraine, nausea and vomiting. Other hx: Bladder cancer with BCG and tumor removal, R testicular cancer with orchiectomy/radiation, chronic back and cervical pain, frequent debilitating migraines, bilateral sciatica, upper GI bleeds, hiatal hernia, gastritis, Diego's palsy Last Myocardial Infarction Date:: 05/25/14 History of Any Multi-Drug Resistant Organisms: None Reported Past Surgical History: Adenoidectomy, Appendectomy, Heart Catheterization, Hernia Repair, Orthopedic Surgery, Tonsillectomy Additional Past Surgical History / Comment(s): 08/03/15 EGD with negative BX and colonoscopy with polypectomy and BX-neg, 05/27/14 normal cardiac cath, several back sx including laminectomy, spinous process removed T11 and T12/cage and arturo, bilateral arthroscopic knee surgeries with one done twice, left/Right, thumb surgeries with rt one having titanium joint, L rotator cuff repair, several nasal polypectomies, RFA cervical/back, R/L inguinal hernia repairs, rt orchiectomy Past Anesthesia/Blood Transfusion Reactions: No Reported Reaction Past Psychological History: Depression Smoking Status: Former smoker Past Alcohol Use History: None Reported Past Drug Use History: None Reported - Past Family History Father Family Medical History: Cancer Additional Family Medical History / Comment(s): Father of stomach ca at the age of 65 yrs. Mother Family Medical History: No Reported History Additional Family Medical History / Comment(s): Mother of "old age". She was 83 yrs old Brother(s) Family Medical History: Diabetes Mellitus Sister(s) Family Medical History: Diabetes Mellitus Additional Family Medical History / Comment(s): breast ca General Exam Limitations: no limitations Course Vital Signs 11/28/18 09:07 Temperature 97.5 F L Pulse Rate 87 Respiratory 16 Rate Blood Pressure 127/81 O2 Sat by Pulse 94 L Oximetry Medical Decision Making - Lab Data Result diagrams: 11/28/18 10:00 11/28/18 10:00 Lab Results 11/28/18 11/28/18 11/28/18 Range/Units 10:00 10:00 10:00 WBC 5.9 (3.8-10.6) k/uL RBC 4.66 (4.30-5.90) m/uL Hgb 15.4 (13.0-17.5) gm/dL Hct 46.6 (39.0-53.0) % MCV 99.9 (80.0-100.0) fL MCH 32.9 (25.0-35.0) pg MCHC 33.0 (31.0-37.0) g/dL RDW 13.1 (11.5-15.5) % Plt Count 209 (150-450) k/uL Neutrophils % (Manual) 59 % Lymphocytes % (Manual) 25 % Monocytes % (Manual) 13 % Eosinophils % (Manual) 3 % Neutrophils # (Manual) 3.48 (1.3-7.7) k/uL Lymphocytes # (Manual) 1.48 (1.0-4.8) k/uL Monocytes # (Manual) 0.77 (0-1.0) k/uL Eosinophils # (Manual) 0.18 (0-0.7) k/uL Nucleated RBCs 0 (0-0) /100 WBC Manual Slide Review Performed RBC Morphology Normal Sodium 142 (137-145) mmol/L Potassium 5.1 (3.5-5.1) mmol/L Chloride 103 (98-107) mmol/L Carbon Dioxide 32 H (22-30) mmol/L Anion Gap 7 mmol/L BUN 16 (9-20) mg/dL Creatinine 0.70 (0.66-1.25) mg/dL Est GFR (CKD-EPI)AfAm >90 (>60 ml/min/1.73 sqM) Est GFR (CKD-EPI)NonAf >90 (>60 ml/min/1.73 sqM) Glucose 99 (74-99) mg/dL Plasma Lactic Acid Finesse 1.1 (0.7-2.0) mmol/L Calcium 9.9 (8.4-10.2) mg/dL Total Bilirubin 0.7 (0.2-1.3) mg/dL AST 30 (17-59) U/L ALT 32 (21-72) U/L Alkaline Phosphatase 68 (38-126) U/L Total Protein 7.0 (6.3-8.2) g/dL Albumin 4.1 (3.5-5.0) g/dL Lipase 54 (23-300) U/L Disposition Clinical Impression: Abdominal pain Disposition: HOME SELF-CARE Condition: Good Instructions (If sedation given, give patient instructions): Abdominal Pain (ED) Is patient prescribed a controlled substance at d/c from ED?: No Referrals: Lul Garcia MD [Primary Care Provider] - 1-2 days Bonnie Padilla MD [STAFF PHYSICIAN] - 1-2 days Time of Disposition: 11:30
[2018-11-28 10:11] LABS: HCT 46.6 % (39.0-53.0); HGB 15.4 gm/dL (13.0-17.5); MCH 32.9 pg (25.0-35.0); MCV 99.9 fL (80.0-100.0); Mean Platelet Volume 6.5; Platelet Count 209 k/uL (150-450); RBC 4.66 m/uL (4.30-5.90); RDW 13.1 % (11.5-15.5); WBC 5.9 k/uL (3.8-10.6)
[2018-11-28 10:21] LABS: ALT 32 U/L (21-72); AST 30 U/L (17-59); African American GFR (CKD) >90 (>60 ml/min/1.73 sqM); Albumin 4.1 g/dL (3.5-5.0); Alkaline Phosphatase 68 U/L (38-126); Anion Gap 7 mmol/L; Blood Urea Nitrogen 16 mg/dL (9-20); Calcium 9.9 mg/dL (8.4-10.2); Carbon Dioxide 32 mmol/L (22-30); Chloride 103 mmol/L (98-107); Glucose 99 mg/dL (74-99); Non-African American GFR(CKD) >90 (>60 ml/min/1.73 sqM); Potassium 5.1 mmol/L (3.5-5.1); Sodium 142 mmol/L (137-145); Total Bilirubin 0.7 mg/dL (0.2-1.3)
[2018-11-28 10:37] LABS: Nucleated Red Blood Cells 0 /100 WBC (0-0)
[2018-11-28 10:40] LABS: Eosinophils # (M) 0.18 k/uL (0-0.7); Lymphocytes # (M) 1.48 k/uL (1.0-4.8); Monocytes # (M) 0.77 k/uL (0-1.0); Neutrophils # (M) 3.48 k/uL (1.3-7.7); Neutrophils % (M) 59 %; Total Cells Counted 100
--- NOTE | 2018-11-28 11:14 | CT ---
EXAMINATION TYPE: CT abdomen pelvis w con DATE OF EXAM: 11/28/2018 COMPARISON: 09/15/2018 INDICATION: Right sided Abdominal pain DLP: 746.4 mGycm, Automated exposure control for dose reduction was used. CONTRAST: 100 mL of Isovue 300. Study performed without Oral Contrast TECHNIQUE: Axial images were obtained from above the diaphragm to the pubic rami in the axial plane a t 5 mm thick sections. Reconstructed images are reviewed on the computer in the coronal plane. FINDINGS: Limited CT sections are obtained the lung bases. There is a small right pleural effusion. Normal com pressive atelectasis is adjacent.. There appears to be prior repair of the diaphragm. Correlate with surgical history. CT ABDOMEN: Liver: Normal density without discrete masses cysts or lacerations. Spleen: Normal Pancreas: pancreatic duct is mildly prominent for size. No abrupt cut off sign is evident. No discret e masses are identified. ERCP can be performed if additional evaluation would benefit the patient Adrenal glands: The adrenal glands are normal. Gallbladder: Normal Kidneys: No masses are evident. No hydronephrosis is present. No cysts are present. There is a 0.4 cm nonobstructing renal stone in the mid left kidney. Aorta: Vascular calcification is within the aorta. Inferior vena cava: Normal. CT PELVIS: Loops of bowel within the abdomen and pelvis are normal. Scattered diverticuli within the sigmoid colon. No suspicious dilated loops of bowel are evident. Appendix: Not identified. No suspicious tubular structures or inflammatory changes are evident. Urinary bladder: Normal. Genitourinary structures: Prostate appears normal. Osseous structures: No suspicious lytic or sclerotic lesions. Stents of surgeries in the lower lumbar space. IMPRESSIONS: 1. Nonobstructing left renal stone. 2. Diverticulosis without acute diverticulitis within the sigmoid colon. 3. Mild prominence of the pancreatic duct. 4. Small right pleural effusion.
[2018-11-28] MEDS ORDERED: LIDOCAINE 5% PATCH TOPICAL STA (11:27)
== END 2018-11-28 11:52 | disposition home or self-care (01) ==
LOC: EC 08:56
DX: R10.31 Right lower quadrant pain (principal); R11.0 Nausea; J44.9 Chronic obstructive pulmonary disease, unspecified; K21.9 Gastro-esophageal reflux disease without esophagitis; I25.2 Old myocardial infarction; Z79.899 Other long term (current) drug therapy; Z91.018 Allergy to other foods; Z91.041 Radiographic dye allergy status; Z91.048 Other nonmedicinal substance allergy status; Z88.0 Allergy status to penicillin; Z88.2 Allergy status to sulfonamides; Z88.8 Allergy status to other drugs, medicaments and biological substances; Z91.02 Food additives allergy status; Z87.891 Personal history of nicotine dependence; Z95.5 Presence of coronary angioplasty implant and graft; Z90.89 Acquired absence of other organs; Z85.51 Personal history of malignant neoplasm of bladder
CPT/HCPCS: 36415; 80053; 83605; 83690; 85025; 74177; 99284; 96374; 96375 ×3; J1200; J2930; J1885; Q9967

== ENCOUNTER → 2018-12-10 | Outpatient (CLI) | payer MEDICAID, MEDICARE ==
--- NOTE | 2018-12-10 15:53 | US ---
EXAMINATION TYPE: US gallbladder DATE OF EXAM: 12/10/2018 COMPARISON: US & CT CLINICAL HISTORY: K80.20 GALLSTONES. Pt states post prandial pain EXAM MEASUREMENTS: Liver Length: 11.8 cm Gallbladder Wall: 0.3 cm CBD: 0.4 cm Right Kidney: 9.0 x 4.9 x 4.7 cm Extremely limited scan, pt has small intercostal window to visualize RUQ Pancreas: Prominent duct at 4mm Liver: Limited views show no abnormality Gallbladder: Possible sludge, wall thickness upper limits of normal, very difficult to visualize Evidence for sonographic Moscoso's sign: No CBD: wnl Right Kidney: wnl Incidental finding right pleural effusion IMPRESSION: 1. Mild prominence of the pancreatic duct measuring up to 4 mm. Normal less than 3 mm. 2. Somewhat limited exam 3. Incidental note is made of a right pleural effusion
== END | disposition home or self-care (01) ==
LOC: RADUSWWP 15:22
PROVIDERS: ATTEND Surgery Plastic and Reconstructive Surgery
DX: K80.20 Calculus of gallbladder without cholecystitis without obstruction (principal)
CPT/HCPCS: 76705

== ENCOUNTER → 2019-01-16 | Day surgery (SDC) | payer MEDICAID, MEDICARE ==
[2019-01-15 08:53] VITALS: BMI 20.9
[~2019-01-16] MED LIST: LACTATED RINGERS 1,000 ML IV SCH; LIDOCAINE 1% 20 ML VIAL (10MG/ML) FOR IV START INTRADERMA PRN; LIDOCAINE 1% INJ 10MG/ML (20 ML MDV) ONE; PROPOFOL 10 MG/ML 20 ML VIAL IV ONE
--- NOTE | 2019-01-16 06:58 | P.GSHP ---
History of Present Illness H&P Date: 01/16/19 CHIEF COMPLAINT: GERD and colon screen HISTORY OF PRESENT ILLNESS: The patient is a 73-year-old male who presents with gastroesophageal reflux disease and need for colon screen. Upper and lower endoscopy were offered for further evaluation and management. PAST MEDICAL HISTORY: Please see list. PAST SURGICAL HISTORY: Please see list. MEDICATIONS: Please see list. ALLERGIES: Please see list. SOCIAL HISTORY: No illicit drug use FAMILY HISTORY: No reports of Crohn disease or ulcerative colitis. REVIEW OF ORGAN SYSTEMS: CONSTITUTIONAL: No reports of fevers or chills. GI: Denies any blood in stools or constipation. PHYSICAL EXAM: VITAL SIGNS: Stable GENERAL: Well-developed pleasant in no acute distress. HEENT: No scleral icterus. Extraocular movements grossly intact. Moist buccal mucosa. NECK: Supple without lymphadenopathy. CHEST: Unlabored respirations. Equal bilateral excursions. CARDIOVASCULAR: Regular rate and rhythm. Distal 2+ pulses. ABDOMEN: Soft, nondistended. MUSCULOSKELETAL: No clubbing, cyanosis, or edema. ASSESSMENT: 1. Gastroesophageal reflux disease 2. Colon screen. PLAN: 1. Recommend proceeding with an upper and lower endoscopy Past Medical History Past Medical History: Cancer, COPD, GERD/Reflux Additional Past Medical History / Comment(s): Bladder cancer with BCG and tumor removal, R testicular cancer with orchiectomy/radiation, chronic back and cervical pain, migraines, bilateral sciatica, hiatal hernia, gastritis, Diego's palsy, denies GI bleed hx and denies hx of [place]. Last Myocardial Infarction Date:: 05/25/14 History of Any Multi-Drug Resistant Organisms: None Reported Past Surgical History: Adenoidectomy, Appendectomy, Heart Catheterization, Hernia Repair, Orthopedic Surgery, Tonsillectomy Additional Past Surgical History / Comment(s): EGD , colonoscopy with polypectomy 05/27/14 cardiac cath, several back sx including laminectomy, spinous process removed T11 and T12/cage and arturo, bilateral arthroscopic knee surgeries with one done twice, left/Right, thumb surgeries with rt one having titanium joint, L rotator cuff repair, several nasal polypectomies, RFA cervical/back, R/L inguinal hernia repairs, rt orchiectomy Past Anesthesia/Blood Transfusion Reactions: No Reported Reaction Past Psychological History: Depression Additional Psychological History / Comment(s): . Smoking Status: Former smoker Past Alcohol Use History: None Reported Additional Past Alcohol Use History / Comment(s): Pt started smoking in 1960(smoked 1.5 ppd) and quit cigarettes in 2003. Past Drug Use History: None Reported - Past Family History Father Family Medical History: Cancer Additional Family Medical History / Comment(s): Father of stomach ca at the age of 65 yrs. Mother Family Medical History: No Reported History Additional Family Medical History / Comment(s): Mother of "old age". She was 83 yrs old Brother(s) Family Medical History: Diabetes Mellitus Sister(s) Family Medical History: Diabetes Mellitus Additional Family Medical History / Comment(s): breast ca (sisters) Medications and Allergies Home Medications Medication Instructions Recorded Confirmed Type Omeprazole 40 mg PO DAILY 08/17/18 01/15/19 History Albuterol Nebulized [Ventolin 2.5 mg INHALATION QID PRN 09/15/18 01/15/19 Histor y Nebulized] Aimovig (Unknown Dose) 1 dose SQ QMONTH 01/15/19 History Ascorbic Acid [Vitamin C] 500 mg PO DAILY 01/15/19 01/15/19 History Fluticasone/Salmeterol [Advair 1 inhalation PO BID 01/15/19 01/15/19 History 500-50 Diskus] Glucosam/Abimael-Msm1/C/Mane/Bosw 1 each PO DAILY 01/15/19 01/15/19 History [Glucosamine-Chondroitin Tablet] Migraine Medication Otc 1 tab PO DIRECTED PRN 01/15/19 History Allergies Allergy/AdvReac Type Severity Reaction Status Date / Time chocolate flavor Allergy Unknown Verified 01/15/19 08:39 Iodinated Contrast Media Allergy Anaphylaxis Verified 01/15/19 08:39 [Iodinated Contrast Media - IV Dye] iodine Allergy Anaphylaxis Verified 01/15/19 08:39 Penicillins Allergy Anaphylaxis Verified 01/15/19 08:39 Sulfa (Sulfonamide Allergy Anaphylaxis Verified 01/15/19 08:39 Antibiotics) fentanyl AdvReac Severe SEVERE Verified 01/15/19 08:39 MIGRAINES banana AdvReac HEADACHE Verified 01/15/19 08:39 gabapentin AdvReac Unknown Verified 01/15/19 08:39 tree nut [Nut] AdvReac HEADACHE Verified 01/15/19 08:39 yellow dye AdvReac HEADACHE Verified 01/15/19 08:39 OPIODS AdvReac Severe MIGRAINES Uncoded 01/15/19 08:39
[2019-01-16 10:10] VITALS: TEMP 97.6
--- NOTE | 2019-01-16 11:33 | P.PCN ---
Date of Procedure: 01/16/19 Description of Procedure: PREOPERATIVE DIAGNOSIS: Gastroesophageal reflux disease. History of diaphragmatic hiatal hernia POSTOPERATIVE DIAGNOSIS: Gastroesophageal reflux disease. History of diaphragmatic hiatal hernia Gastritis, chronic OPERATION: Esophagogastroduodenoscopy with biopsies along antrum. SURGEON: Bonnie Padilla MD ANESTHESIA: MAC. INDICATIONS: The patient is a 73-year-old male who presents with a history of reflux disease. Benefits and risks of the procedure were described. Informed consent was obtained. DESCRIPTION: The patient was brought into the endoscopy suite and laid in the left lateral decubitus position. An Olympus gastroscope was passed along the posterior oropharynx down to the distal esophagus where the squamocolumnar junction was encountered at 35 cm from the incisors. The stomach was entered and no bile reflux was found. Additional findings are listed below. Biopsies with cold forceps were obtained of the antrum. The first through third portion of the duodenum was examined and remarkable for stricture along the pylorus. Retroflexion of the scope confirmed Hill grade 3 lower esophageal valve. The squamocolumnar junction demonstrated LA grade A erosive esophagitis. The stomach was desufflated. The patient tolerated the procedure well. FINDINGS: Squamocolumnar junction 35 cm from the incisors. Diaphragmatic hiatus at 35 cm. Hill grade 3 lower esophageal valve. LA grade A erosive esophagitis. No active duodenitis. Chronic gastritis Stricture along pylorus RECOMMENDATIONS: Upper endoscopy as needed.
--- NOTE | 2019-01-16 11:35 | P.PCN ---
Date of Procedure: 01/16/19 Description of Procedure: PREOPERATIVE DIAGNOSIS: Colonoscopy screening. Personal history colon polyps POSTOPERATIVE DIAGNOSIS: Colonoscopy screening Personal history colon polyps Sigmoid diverticulosis Sigmoid stricture OPERATION: Colonoscopy to the sigmoid colon without biopsy SURGEON: Bonnie Padilla MD. ANESTHESIA: MAC. INDICATIONS: The patient is a 74-year-old male who presents for colonoscopy screening. Last colonoscopy was over 5 years ago. Benefits and risks were described and inform ed consent was obtained. DESCRIPTION OF PROCEDURE: The patient had undergone Gatorade, MiraLAX and Dulcolax prep. He had been brought into the operating room and laid in the left lateral decubitus position. After adequate intravenous sedation, the rectum was examined with 2% lidocaine jelly. External hemorrhoids were encountered. The rectal tone was loose. No lesions were palpated in the rectal vault. An Olympus colonoscope was advanced along the rectum to a very tortuous sigmoid colon. The scope was then exchanged for a pediatric colonoscope. Despite multiple maneuvers, the sigmoid colon had severe tortuosity including tight stricture preventing further advancement of scope. The scope was passed to 30 cm from the anal verge. No evidence of polyps were identified. As the patient posed high risk for perforation with persistence of the procedure, the procedure was discontinued. The colon was desufflated. The patient had tolerated the procedure well. Withdrawal time was over 6 minutes. FINDINGS: Aronchik preparation quality scale 3 (1-5) Tortuous sigmoid colon with stricture preventing further advancement of the scope. External prolapsed hemorrhoids. Scope advanced to sigmoid colon at 30 cm. No arteriovenous malformations. No adenomatous polyps. No focal colitis. RECOMMENDATIONS: Completion of colonoscopy evaluation with barium enema. Plan - Discharge Summary New Discharge Prescriptions: No Action Omeprazole 40 mg PO DAILY Albuterol Nebulized [Ventolin Nebulized] 2.5 mg INHALATION QID PRN PRN Reason: Shortness Of Breath Fluticasone/Salmeterol [Advair 500-50 Diskus] 1 inhalation PO BID Ascorbic Acid [Vitamin C] 500 mg PO DAILY Glucosam/Abimael-Msm1/C/Mane/Bosw [Glucosamine-Chondroitin Tablet] 1 each PO D AILY Aimovig (Unknown Dose) 1 dose SQ QMONTH Migraine Medication Otc 1 tab PO DIRECTED PRN PRN Reason: Pain Discharge Medication List Omeprazole 40 mg PO DAILY 08/17/18 [History] Albuterol Nebulized [Ventolin Nebulized] 2.5 mg INHALATION QID PRN 09/15/18 [History] Aimovig (Unknown Dose) 1 dose SQ QMONTH 01/15/19 [History] Ascorbic Acid [Vitamin C] 500 mg PO DAILY 01/15/19 [History] Fluticasone/Salmeterol [Advair 500-50 Diskus] 1 inhalation PO BID 01/15/19 [History] Glucosam/Abimael-Msm1/C/Mane/Bosw [Glucosamine-Chondroitin Tablet] 1 each PO DAILY 01/15/19 [History] Migraine Medication Otc 1 tab PO DIRECTED PRN 01/15/19 [History]
[2019-01-16 11:54] VITALS: BP 121/77; PULSE 66; RESP 16
--- NOTE | 2019-01-16 14:44 | FL ---
EXAMINATION TYPE: FL barium enema DATE OF EXAM: 01/16/2019 COMPARISON: NONE HISTORY: Incomplete colonoscopy terminating at the sigmoid colon but no biopsies taken today. TECHNIQUE: A double contrast barium enema study is performed. 2 minutes and 15 seconds of fluoroscop y time was utilized with 55 fluoroscopic images saved. FINDINGS: Fire Alarm Installer view of the abdomen shows gaseous dilatation of large and small bowel from the recen t unsuccessful colonoscopy. No evidence of any mass or polyp, obstructing or constricting lesion throughout the colon. Scattered diverticula are noted in the sigmoid colon. Appendix was filled and appeared normal. The terminal ileum was refluxed and appears within normal l imits. IMPRESSION: Sigmoid diverticulosis. Otherwise unremarkable exam.
== END | disposition home or self-care (01) ==
LOC: ORWHC2ENDO 09:19
PROVIDERS: ATTEND Surgery Plastic and Reconstructive Surgery
DX: Z12.11 Encounter for screening for malignant neoplasm of colon (principal); K29.50 Unspecified chronic gastritis without bleeding; K22.10 Ulcer of esophagus without bleeding; Z53.8 Procedure and treatment not carried out for other reasons; Q43.8 Other specified congenital malformations of intestine; K21.9 Gastro-esophageal reflux disease without esophagitis; K31.1 Adult hypertrophic pyloric stenosis; K64.8 Other hemorrhoids; Z86.010 Personal history of colon polyps; K57.30 Diverticulosis of large intestine without perforation or abscess without bleeding; J44.9 Chronic obstructive pulmonary disease, unspecified; Z85.51 Personal history of malignant neoplasm of bladder; Z85.47 Personal history of malignant neoplasm of testis; Z92.3 Personal history of irradiation; M54.32 Sciatica, left side; M54.31 Sciatica, right side; G89.29 Other chronic pain; M54.9 Dorsalgia, unspecified; M54.2 Cervicalgia; G43.909 Migraine, unspecified, not intractable, without status migrainosus; G51.0 Bell's palsy; I25.2 Old myocardial infarction; Z96.691 Finger-joint replacement of right hand; F32.9 Major depressive disorder, single episode, unspecified; Z87.891 Personal history of nicotine dependence; Z80.0 Family history of malignant neoplasm of digestive organs; Z80.3 Family history of malignant neoplasm of breast; Z83.3 Family history of diabetes mellitus; Z79.51 Long term (current) use of inhaled steroids; Z79.899 Other long term (current) drug therapy; Z91.041 Radiographic dye allergy status; Z88.5 Allergy status to narcotic agent; Z91.018 Allergy to other foods; Z88.0 Allergy status to penicillin; Z88.2 Allergy status to sulfonamides; Z88.8 Allergy status to other drugs, medicaments and biological substances; Z91.048 Other nonmedicinal substance allergy status
CPT/HCPCS: 88305; 74270; 43239; J2001; J2704; G0105

== ENCOUNTER 2019-01-30 21:34 | Emergency (ER) | payer MEDICAID, MEDICARE ==
[2019-01-30 21:38] VITALS: RESP 20; TEMP 98.2
[2019-01-30] MEDS ORDERED: HYDROmorphone 0.5 MG/0.5 ML SYRINGE IVP STA ×2 (22:07→23:26)
[2019-01-30] MEDS ORDERED: SODIUM CHLORIDE 0.9% 500 ML 500 ML IV STA (22:07)
--- NOTE | 2019-01-30 22:30 | ED ---
Abdominal Pain HPI - General Chief Complaint: Abdominal Pain Stated Complaint: post op pain Time Seen by Provider: 01/30/19 21:45 Source: patient Mode of arrival: ambulatory Limitations: no limitations - History of Present Illness Initial Comments: Patient is a 73-year-old male presenting to the emergency Department with complaints of left-sided abdominal pain 3 hours. Patient was just discharged from the hospital after undergoing a cholecystectomy with Dr. Padilla. He was discharged approximately 4 hours prior to arrival. Patient states the procedure went well there was no complications. Patient states he had some mild left- sided abdominal pain before he was discharged from over he received more pain medication and his pain subsided. Patient was able to urinate before discharge but has not had a bowel movement. Patient states he has also not been passing gas. Patient states he has been burping a lot. He has been trying to drink s mall sips of water. Patient states the pain is very severe and the Tylenol is not helping. Patient states even light touch to the left lower abdomen causes him pain. Patient denies fever, chills. Patient admits to mild nausea but no vomiting. Patient has no other complaints at this time. Upon arrival to the ER, patient is slightly tachycardia at 114, BP is 163/96, 95% on room air, 20 respiratory rate, afebrile. - Related Data Home Medications Medication Instructions Recorded Confirmed Omeprazole 40 mg PO DAILY 08/17/18 01/29/19 Albuterol Nebulized [Ventolin 2.5 mg INHALATION QID PRN 09/15/18 01/29/19 Nebulized] Aimovig (Unknown Dose) 1 dose SQ QMONTH 01/15/19 01/30/19 Ascorbic Acid [Vitamin C] 500 mg PO DAILY 01/15/19 01/29/19 Fluticasone/Salmeterol [Advair 1 inhalation PO BID 01/15/19 01/29/19 500-50 Diskus] Glucosam/Abimael-Msm1/C/Mane/Bosw 1 each PO DAILY 01/15/19 01/29/19 [Glucosamine-Chondroitin Tablet] Previous Rx's Medication Instructions Recorded Acetaminophen Tab [Tylenol Tab] 500 mg PO Q6H PRN #30 tablet 01/30/19 Tamsulosin [Flomax] 0.4 mg PO DAILY #5 cap.er.24h 01/30/19 Allergies Allergy/AdvReac Type Severity Reaction Status Date / Time chocolate flavor Allergy Unknown Verified 01/30/19 21:38 Iodinated Contrast Media Allergy Anaphylaxis Verified 01/30/19 21:38 [Iodinated Contrast Media - IV Dye] iodine Allergy Anaphylaxis Verified 01/30/19 21:38 Penicillins Allergy Anaphylaxis Verified 01/30/19 21:38 Sulfa (Sulfonamide Allergy Anaphylaxis Verified 01/30/19 21:38 Antibiotics) fentanyl AdvReac Severe SEVERE Verified 01/30/19 21:38 MIGRAINES adhesive AdvReac tears skin Verified 01/30/19 21:38 banana AdvReac HEADACHE Verified 01/30/19 21:38 gabapentin AdvReac Unknown Verified 01/30/19 21:38 tree nut [Nut] AdvReac HEADACHE Verified 01/30/19 21:38 yellow dye AdvReac HEADACHE Verified 01/30/19 21:38 OPIODS AdvReac Severe MIGRAINES Uncoded 01/30/19 21:38 Review of Systems ROS Statement: Those systems with pertinent positive or pertinent negative responses have been documented in the HPI. ROS Other: All systems not noted in ROS Statement are negative. 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, R testicular cancer with orchiectomy/radiation, chronic back and cervical pain, frequent debilitating migraines, bilateral sciatica, upper GI bleeds, hiatal hernia, gastritis, Diego's palsy Last Myocardial Infarction Date:: 05/25/14 History of Any Multi-Drug Resistant Organisms: None Reported Past Surgical History: Adenoidectomy, Appendectomy, Cholecystectomy, Heart Catheterization, Hernia Repair, Orthopedic Surgery, Tonsillectomy Additional Past Surgical History / Comment(s): 08/03/15 EGD with negative BX and colonoscopy with polypectomy and BX-neg, 05/27/14 normal cardiac cath, several back sx including laminectomy, spinous process removed T11 and T12/cage and arturo, bilateral arthroscopic knee surgeries with one done twice, left/Right, thumb surgeries with rt one having titanium joint, L rotator cuff repair, several nasal polypectomies, RFA cervical/back, R/L inguinal hernia repairs, rt orchiectomy Past Anesthesia/Blood Transfusion Reactions: No Reported Reaction Past Psychological History: Depression Smoking Status: Former smoker Past Alcohol Use History: None Reported Past Drug Use History: None Reported - Past Family History Father Family Medical History: Cancer Additional Family Medical History / Comment(s): Father of stomach ca at the age of 65 yrs. Mother Family Medical History: No Reported History Additional Family Medical History / Comment(s): Mother of "old age". She was 83 yrs old Brother(s) Family Medical History: Diabetes Mellitus Sister(s) Family Medical History: Diabetes Mellitus Additional Family Medical History / Comment(s): breast ca (sisters) General Exam - General Exam Comments Initial Comments: GENERAL: Well-appearing, well-nourished and in no acute distress, although appears uncomfortable. HEAD: Atraumatic, normocephalic. EYES: Pupils equal round and reactive to light, extraocular movements intact, sclera anicteric, conjunctiva are normal. ENT: Nares patent, oropharynx clear without exudates. Moist mucous membranes. NECK: Normal range of motion, supple without lymphadenopathy or JVD. LUNGS: Breath sounds clear to auscultation bilaterally and equal. No wheezes rales or rhonchi. HEART: Tachycardia rate and rhythm without murmurs, rubs or gallops. ABDOMEN: Severe tenderness with palpation of the left lower quadrant. Patient has 4, 1-2 cm incisions on the lower abdomen secondary to recent cholecystectomy. Wounds are clean and dry and intact. There is some superficial bruising along the wounds as well. Positive guarding. Soft, hypooactive bowel sounds. : Deferred EXTREMITIES: Normal range of motion, no pitting or edema. No clubbing or cyanosis. NEUROLOGICAL: Normal speech, normal gait. PSYCH: Normal mood, normal affect. SKIN: Warm, Dry, normal turgor, no rashes or lesions noted. Limitations: no limitations Course Vital Signs 01/30/19 21:36 Temperature 98.2 F Pulse Rate 114 H Respiratory 20 Rate Blood Pressure 163/96 O2 Sat by Pulse 95 Oximetry Medical Decision Making - Medical Decision Making Patient is a 73-year-old male presenting with left lower quadrant pain 3 hours. Patient had a cholecystectomy with Dr. Bishop today. Patient was discharged from the hospital approximately 4 hours prior to arrival. Patient has yet to have a bowel movement or been passing gas. Patient has been urinating as normal. Lab work shows no acute findings. KUB shows no free air, no bowel obstruction. Patient was unable to leave a urine sample during ER stay. He is okay with being discharged without the urine sample. Patient was given some fluids as well as pain medication. Patient reports improvement of symptoms. I discussed findings with patient and that his pain is most likely related to constipation and gas pains. I suggested he start MiraLAX and to make sure patient is walking. Patient is in agreement with this plan. Patient is stable for discharge at this time. Patient will continue to use Tylenol as needed for pain relief. Return parameters were discussed with the patient and he verbalized understanding. Case discussed with Dr. Martell. - Lab Data Result diagrams: 01/30/19 22:20 01/30/19 22:20 Lab Results 01/30/19 01/30/19 01/30/19 Range/Units 22:20 22:20 22:20 WBC 7.5 (3.8-10.6) k/uL RBC 4.67 (4.30-5.90) m/uL Hgb 15.2 (13.0-17.5) gm/dL Hct 44.7 (39.0-53.0) % MCV 95.7 (80.0-100.0) fL MCH 32.6 (25.0-35.0) pg MCHC 34.0 (31.0-37.0) g/dL RDW 13.7 (11.5-15.5) % Plt Count 233 (150-450) k/uL Neutrophils % 92 % Lymphocytes % 5 % Monocytes % 2 % Eosinophils % 0 % Basophils % 0 % Neutrophils # 6.9 (1.3-7.7) k/uL Lymphocytes # 0.4 L (1.0-4.8) k/uL Monocytes # 0.2 (0-1.0) k/uL Eosinophils # 0.0 (0-0.7) k/uL Basophils # 0.0 (0-0.2) k/uL PT 9.5 (9.0-12.0) sec INR 0.9 (<1.2) APTT 25.8 (22.0-30.0) sec Sodium 135 L (137-145) mmol/L Potassium 5.3 H (3.5-5.1) mmol/L Chloride 102 (98-107) mmol/L Carbon Dioxide 25 (22-30) mmol/L Anion Gap 8 mmol/L BUN 22 H (9-20) mg/dL Creatinine 0.65 L (0.66-1.25) mg/dL Est GFR (CKD-EPI)AfAm >90 (>60 ml/min/1.73 sqM) Est GFR (CKD-EPI)NonAf >90 (>60 ml/min/1.73 sqM) Glucose 179 H (74-99) mg/dL Calcium 9.2 (8.4-10.2) mg/dL Total Bilirubin 1.1 (0.2-1.3) mg/dL AST 33 (17-59) U/L ALT 38 (21-72) U/L Alkaline Phosphatase 69 (38-126) U/L Total Protein 6.6 (6.3-8.2) g/dL Albumin 3.9 (3.5-5.0) g/dL Disposition Clinical Impression: Abdominal pain Disposition: HOME SELF-CARE Condition: Stable Instructions (If sedation given, give patient instructions): Gas and Bloating (ED) Additional Instructions: Please return to the Emergency Department if symptoms worsen or any other concerns. Follow-up with Dr. Padilla if symptoms persist. Trial of MiraLAX for 1-2 weeks for constipation. Make sure you are up and walking around. Laying on left side for pain relief. Is patient prescribed a controlled substance at d/c from ED?: No Referrals: Lul Garcia MD [Primary Care Provider] - 1-2 days
[2019-01-30 22:35] LABS: Basophils % (A) 0 %; Eosinophils % (A) 0 %; HCT 44.7 % (39.0-53.0); HGB 15.2 gm/dL (13.0-17.5); Lymphocytes # (A) 0.4 k/uL (1.0-4.8); Lymphocytes % (A) 5 %; MCH 32.6 pg (25.0-35.0); MCV 95.7 fL (80.0-100.0); Mean Platelet Volume 7.8; Monocytes # (A) 0.2 k/uL (0-1.0); Monocytes % (A) 2 %; Neutrophils # (A) 6.9 k/uL (1.3-7.7); Neutrophils % (A) 92 %; Platelet Count 233 k/uL (150-450); RBC 4.67 m/uL (4.30-5.90); RDW 13.7 % (11.5-15.5); WBC 7.5 k/uL (3.8-10.6)
[2019-01-30 22:44] LABS: African American GFR (CKD) >90 (>60 ml/min/1.73 sqM); Albumin 3.9 g/dL (3.5-5.0); Anion Gap 8 mmol/L; Calcium 9.2 mg/dL (8.4-10.2); Carbon Dioxide 25 mmol/L (22-30); Chloride 102 mmol/L (98-107); Glucose 179 mg/dL (74-99); Non-African American GFR(CKD) >90 (>60 ml/min/1.73 sqM); Sodium 135 mmol/L (137-145); Total Bilirubin 1.1 mg/dL (0.2-1.3); Total Protein 6.6 g/dL (6.3-8.2)
[2019-01-30 22:45] LABS: INR 0.9 (<1.2); Partial Thromboplastin Time 25.8 sec (22.0-30.0); Prothrombin Time 9.5 sec (9.0-12.0)
[2019-01-30 22:49] LABS: ALT 38 U/L (21-72); AST 33 U/L (17-59); Alkaline Phosphatase 69 U/L (38-126); Blood Urea Nitrogen 22 mg/dL (9-20); Potassium 5.3 mmol/L (3.5-5.1)
--- NOTE | 2019-01-30 22:53 | XR ---
EXAMINATION TYPE: XR KUB DATE OF EXAM: 01/30/2019 COMPARISON: 02/22/2015 HISTORY: Pain TECHNIQUE: 2 views upright FINDINGS: There is no sign of intestinal obstruction or pneumoperitoneum. There is some atelectasis l eft lung base. There is previous surgery at the lumbosacral junction. Fecal pattern is normal. There are some barium-filled diverticula in the pelvis. There is no evidence of abdominal mass. There are n o definite renal calcifications. There is interposition of the hepatic flexure of the colon also evid ent on old exam. IMPRESSION: There is some atelectasis left lung base that is new compared to old exam. No free air. N o bowel obstruction.
[2019-01-30 23:53] VITALS: BP 144/92; PULSE 103
== END 2019-01-30 23:58 | disposition home or self-care (01) ==
LOC: EC 21:34
DX: R10.32 Left lower quadrant pain (principal); G89.18 Other acute postprocedural pain; R11.0 Nausea; K21.9 Gastro-esophageal reflux disease without esophagitis; J44.9 Chronic obstructive pulmonary disease, unspecified; I25.2 Old myocardial infarction; Z79.899 Other long term (current) drug therapy; Z79.51 Long term (current) use of inhaled steroids; Z91.018 Allergy to other foods; Z91.041 Radiographic dye allergy status; Z91.048 Other nonmedicinal substance allergy status; Z88.0 Allergy status to penicillin; Z88.2 Allergy status to sulfonamides; Z88.5 Allergy status to narcotic agent; Z91.02 Food additives allergy status; Z90.49 Acquired absence of other specified parts of digestive tract; Z90.89 Acquired absence of other organs; Z85.51 Personal history of malignant neoplasm of bladder; Z85.47 Personal history of malignant neoplasm of testis
CPT/HCPCS: 36415; 80053; 85025; 85610; 85730; 74018; 99284; 96374; 96376; J1170

== ENCOUNTER → 2019-01-30 | Day surgery (SDC) | payer MEDICAID, MEDICARE ==
[2019-01-29 09:17] VITALS: BMI 20.9
--- NOTE | 2019-01-29 21:21 | P.GSHP ---
History of Present Illness H&P Date: 01/30/19 CHIEF COMPLAINT: Cholecystitis HISTORY OF PRESENT ILLNESS: The patient is a 73-year-old male who presents with history of epigastric including right upper quadrant abdominal pain. He underwent diagnostic studies for the gallbladder. Separately his clinical picture was consistent with cholecystitis. Now he presents for surgical intervention. PAST MEDICAL HISTORY: Please see list PAST SURGICAL HISTORY: Please see list MEDICATIONS: Please see list ALLERGIES: Denies. SOCIAL HISTORY: No illicit drug use or recent tobacco use FAMILY HISTORY: Pertinent for gallbladder disease REVIEW OF ORGAN SYSTEMS: CONSTITUTIONAL: No reports of fevers or chills. MUSCULOSKELETAL: Has occasional joint pain including back pain. NEURO: No seizure disorders or headaches. No recent stroke. PSYCH: No depression or suicidal ideation. HEMATOLOGIC: No personal or family history of DVTs or pulmonary emboli. PHYSICAL EXAM: VITAL SIGNS: Afebrile vital signs stable GENERAL: Well-developed pleasant male in no acute distress. HEENT: No scleral icterus. Extraocular movements grossly intact. Moist buccal mucosa. NECK: Supple without lymphadenopathy. CHEST: Unlabored respirations. Equal bilateral excursions. CARDIOVASCULAR: Regular rate regular rhythm rhythm. Distal 2+ pulses. ABDOMEN: Soft, nondistended. Tender along the epigastrium and right upper quadrant. MUSCULOSKELETAL: No clubbing, cyanosis, or edema. NEURO : No focal or lateralizing signs. Cranial nerves II-12 within normal limits. PSYCH: Alert and oriented to person, place and time. SKIN: Well perfused. Good skin turgor. ASSESSMENT: 1. Epigastric and right upper quadrant abdominal pain 2. Chronic cholecystitis PLAN: 1. Will need a robotic cholecystectomy possible open. Benefits and risks were described. 2. Heparin for DVT prophylaxis 5000 units. 3. Antibiotic prophylaxis. 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, R testicular cancer with orchiectomy/radiation, chronic back and cervical pain, frequent debilitating migraines, bilateral sciatica, upper GI bleeds, hiatal hernia, gastritis, Diego's palsy Last Myocardial Infarction Date:: 05/25/14 History of Any Multi-Drug Resistant Organisms: None Reported Past Surgical History: Adenoidectomy, Appendectomy, Heart Catheterization, Hernia Repair, Orthopedic Surgery, Tonsillectomy Additional Past Surgical History / Comment(s): 08/03/15 EGD with negative BX and colonoscopy with polypectomy and BX-neg, 05/27/14 normal cardiac cath, several back sx including laminectomy, spinous process removed T11 and T12/cage and arturo, bilateral arthroscopic knee surgeries with one done twice, left/Right, thumb surgeries with rt one having titanium joint, L rotator cuff repair, several nasal polypectomies, RFA cervical/back, R/L inguinal hernia repairs, rt orchiectomy Past Anesthesia/Blood Transfusion Reactions: No Reported Reaction Smoking Status: Former smoker - Past Family History Father Family Medical History: Cancer Additional Family Medical History / Comment(s): Father of stomach ca at the age of 65 yrs. Mother Family Medical History: No Reported History Additional Family Medical History / Comment(s): Mother of "old age". She was 83 yrs old Brother(s) Family Medical History: Diabetes Mellitus Sister(s) Family Medical History: Diabetes Mellitus Additional Family Medical History / Comment(s): breast ca (sisters) Medications and Allergies Home Medications Medication Instructions Recorded Confirmed Type RX: Omeprazole 40 mg PO DAILY 08/17/18 01/29/19 History Albuterol Nebulized [Ventolin 2.5 mg INHALATION QID PRN 09/15/18 01/29/19 History Nebulized] Aimovig (Unknown Dose) 1 dose SQ QMONTH 01/15/19 01/29/19 History Ascorbic Acid [Vitamin C] 500 mg PO DAILY 01/15/19 01/29/19 History Fluticasone/Salmeterol [Advair 1 inhalation PO BID 01/15/19 01/29/19 History 500-50 Diskus] Glucosam/Abimael-Msm1/C/Mane/Bosw 1 each PO DAILY 01/15/19 01/29/19 History [Glucosamine-Chondroitin Tablet] Allergies Allergy/AdvReac Type Severity Reaction Status Date / Time chocolate flavor Allergy Unknown Verified 01/29/19 09:04 Iodinated Contrast Media Allergy Anaphylaxis Verified 01/29/19 09:04 [Iodinated Contrast Media - IV Dye] iodine Allergy Anaphylaxis Verified 01/29/19 09:04 Penicillins Allergy Anaphylaxis Verified 01/29/19 09:04 Sulfa (Sulfonamide Allergy Anaphylaxis Verified 01/29/19 09:04 Antibiotics) fentanyl AdvReac Severe SEVERE Verified 01/29/19 09:04 MIGRAINES adhesive AdvReac tears skin Verified 01/29/19 09:12 banana AdvReac HEADACHE Verified 01/29/19 09:04 gabapentin AdvReac Unknown Verified 01/29/19 09:04 tree nut [Nut] AdvReac HEADACHE Verified 01/29/19 09:04 yellow dye AdvReac HEADACHE Verified 01/29/19 09:04 OPIODS AdvReac Severe MIGRAINES Uncoded 01/29/19 09:04
[~2019-01-30] MED LIST changes: +ACETAMINOPHEN TAB 500 MG TAB PO STA; +BUPIVACAIN-EPI 0.25%-1:200,000 30 ML VIAL SQ ONE; +CLINDAMYCIN 900 MG in DEXTROSE 5% IN WATER 50 ML IVPB ONE; +DEXAMETHASONE SOD PHOSPHATE 10 MG/ML 1 ML VIAL IV ONE; +GENTAMICIN 300 MG in SODIUM CHLORIDE 0.9% 100 ML IVPB ONE; +GLYCOPYRROLATE 0.2 MG/ML 2 ML VIAL ONE; +HEPARIN SODIUM,PORCINE 5,000 UNIT/ML 1 ML VIAL SQ ONE; +HYDROmorphone 0.5 MG/0.5 ML SYRINGE IVP PRN; +KETOROLAC 30 MG/ML 1 ML VIAL IVP STA; +LACTATED RINGERS 1,000 ML IV ONE; +MIDAZOLAM 2 MG/2 ML VIAL IV PRN; +NEOSTIGMINE 1 MG/ML 10 ML VIAL ONE; +ONDANSETRON 4 MG/2 ML VIAL IVP ONE; +PHENYLEPHRINE-0.9% NACL SYG 1 MG/10 ML SYRINGE ONE; +ROCURONIUM BROMIDE 10 MG/ML 10 ML VIAL IV ONE; +SCOPOLAMINE 1.5MG/72HR PATCH TRANSDERM ONE; +TAMSULOSIN 0.4 MG CAP.ER.24H PO STA; +fentaNYL (PF) 50 MCG/ML 2 ML AMP ONE
[2019-01-30 16:07] VITALS: TEMP 97.7
--- NOTE | 2019-01-30 16:25 | P.OP ---
Date of Procedure: 01/30/19 Description of Procedure: SURGEON: MILANA PADILLA MD PREOPERATIVE DIAGNOSES: 1. Right upper quadrant abdominal pain 2. Biliary dyskinesia 3. Chronic cholecystitis 4. Chronic obstructive pulmonary disease 5. Ischemic cardiomyopathy 6. History of myocardial infarction 7. History of bladder cancer 8. History of right diaphragmatic hiatal hernia status post repair 9. Multiple drug ALLERGIES 10. History of testicular cancer 11. Gastroesophageal reflux disease 12. History of Diego's palsy POSTOPERATIVE DIAGNOSES: 1. Right upper quadrant abdominal pain 2. Biliary dyskinesia 3. Chronic cholecystitis 4. Chronic obstructive pulmonary disease 5. Ischemic cardiomyopathy 6. History of myocardial infarction 7. History of bladder cancer 8. History of right diaphragmatic hiatal hernia status post repair 9. Multiple drug ALLERGIES 10. History of testicular cancer 11. Gastroesophageal reflux disease 12. History of Diego's palsy OPERATION: 1. Robotic-assisted da Emily Xi laparoscopic lysis of adhesions 2. Robotic-assisted da Emily Xi laparoscopic cholecystectomy, multiport with FIREFLY ESTIMATED BLOOD LOSS: 5 mL. SPECIMENS REMOVED: Gallbladder. COMPLICATIONS: None. OPERATIVE FINDINGS: 1. Severe right upper quadrant and epigastric adhesions greater omentum to anterior abdominal wall 2. Console time 21 minutes INDICATIONS: The patient is a 29-year-old female who presents with cholelcystitis. Surgical intervention with a laparoscopic cholecystectomy was described at length including injury to the biliary tree, bleeding, infection, need for further surgery. Informed consent was obtained. Robotic assisted laparoscopic approach was described. Benefits and risks of the procedure including but not limited to bleeding, infection, injury to the biliary tree was described. Informed consent was obtained. DESCRIPTION OF PROCEDURE: Patient was brought to the operating room, placed in supine position. After general induction, the abdomen had been prepped and draped in standard sterile fashion. The robotic da Emily XI system was primed. After a timeout protocol was performed, the patient had been prepped and draped in standard sterile fashion. The patient was injected with indocyanine green. A 5 mm 0 degrees laparoscopic trocar entry was performed along the left upper quadrant. The abdomen insufflated to 15 mmHg pressure which was tolerated well. Diagnostic laparoscopy demonstrated no injury to bowel viscera or mesentery. Severe peritoneal adhesions of the greater omentum to abdominal wall was found of the epigastrium including right upper quadrant that had secured the gallbladder including liver. Next, two 8 mm robotic ports were placed along the right upper abdomen. The camera 8-mm port was maintained along the epigastrium. Another 8 mm port was placed along the left upper abdominal wall after exchanging the 5 mm port. Please note that the ports were placed at least 10 to 15 cm away from the target anatomy of the gallbladder. The robot was docked along the left lateral abdomen. The patient was repositioned in reverse Trendelenburg position. Using a grasper for arm 3, a grasper for arm 4, including hook cautery for arm 1, the robotic system was docked and primed as described. Vessel sealer was needed for lysis of adhesions. Instruments were interchanged by the assistant nurse manager including hook cautery, Bovie cautery and clip appliers. I had sat at the console. For lysis of adhesions, vessel sealer including hook cautery was used to dissect the omentum from the abdominal wall. Hemostasis was excellent. Extensive lysis of adhesions was performed. The right lobe of the liver was distorted and h ypoplastic from his history of chronic right diaphragmatic hiatal hernia. Each instruments recent right diaphragmatic hiatal hernia was also identified. The gallbladder fundus was retracted over the dome of the liver. Initial attention was brought to the infundibulum which was gently retracted in the inferior lateral approach. Using a grasper, the cystic duct including the cystic artery was carefully skeletonized. FIREFLY was used to identify the cystic artery and cystic structures. A critical view of safety was obtained. Large PLASTIC clips were used throughout the entire case. Using a clip appraisal specialist 2 clips were placed proximally, and 1 clip was placed between the infundibulum and cystic duct and divided using cautery. Next, the cystic artery was similarly clipped and cauterized. Electro-Bovie cautery was used to remove the gallbladder from the hepatic fossa. Hemostasis was checked and found to be adequate. The robot was undocked. I re-scrubbed into the case. Using a 10 mm Endo Catch bag via the left upper quadrant incision, the specimen was removed from the abdominal cavity. All pneumoperitoneum instruments were evacuated from the abdominal cavity. The incisions were reapproximated using 4-0 Monocryl in an interrupted subcuticular fashion. Fascial defects were less than 8 mm in size. Please note along the trocar sites, local anesthetic was placed as a field block prior to insertion of all instruments. Liquid glue was applied to the skin. At the end of the procedure needle, sponge, and instrument count had been verified correct by the surgical services coordinator. The patient was transferred to postanesthesia care unit in stable condition. Intraoperative films were shared with the patient's family who were very pleased with the level of care. Plan - Discharge Summary Discharge Rx Participant: Yes New Discharge Prescriptions: New Acetaminophen Tab [Tylenol Tab] 500 mg PO Q6H PRN #30 tablet PRN Reason: Pain No Action Omeprazole 40 mg PO DAILY Albuterol Nebulized [Ventolin Nebulized] 2.5 mg INHALATION QID PRN PRN Reason: Shortness Of Breath Fluticasone/Salmeterol [Advair 500-50 Diskus] 1 inhalation PO BID Ascorbic Acid [Vitamin C] 500 mg PO DAILY Glucosam/Abimael-Msm1/C/Mane/Bosw [Glucosamine-Chondroitin Tablet] 1 each PO RICK LY Aimovig (Unknown Dose) 1 dose SQ QMONTH Discharge Medication List Omeprazole 40 mg PO DAILY 08/17/18 [History] Albuterol Nebulized [Ventolin Nebulized] 2.5 mg INHALATION QID PRN 09/15/18 [History] Aimovig (Unknown Dose) 1 dose SQ QMONTH 01/15/19 [History] Ascorbic Acid [Vitamin C] 500 mg PO DAILY 01/15/19 [History] Fluticasone/Salmeterol [Advair 500-50 Diskus] 1 inhalation PO BID 01/15/19 [History] Glucosam/Abimael-Msm1/C/Mane/Bosw [Glucosamine-Chondroitin Tablet] 1 each PO DAILY 01/15/19 [History] Acetaminophen Tab [Tylenol Tab] 500 mg PO Q6H PRN #30 tablet 01/30/19 [Rx] Follow up Appointment(s)/Referral(s): Milana Padilla MD [STAFF PHYSICIAN] - 02/03/19 Patient Instructions/Handouts: Laparoscopic Cholecystectomy (DC), Low Fat Diet (DC) Activity/Diet/Wound Care/Special Instructions: No lifting over 10 pounds in 2 weeks, Feb 13. May shower. No bath tub soaks for two weeks until Feb 13. Diet as tolerated. Take pain medications ibuprofen and tylenol scheduled for the first 48hr/2 days for best pain relief. Use ice pack along the incision for the next 24 hrs to decrease swelling. Discharge Disposition: HOME SELF-CARE
[2019-01-30 16:55] VITALS: BP 119/80; PULSE 73; RESP 17
== END | disposition home or self-care (01) ==
LOC: OR 11:11
PROVIDERS: ATTEND Surgery Plastic and Reconstructive Surgery
DX: K81.1 Chronic cholecystitis (principal); K82.8 Other specified diseases of gallbladder; K66.0 Peritoneal adhesions (postprocedural) (postinfection); I25.5 Ischemic cardiomyopathy; I25.2 Old myocardial infarction; J44.9 Chronic obstructive pulmonary disease, unspecified; G43.909 Migraine, unspecified, not intractable, without status migrainosus; F32.9 Major depressive disorder, single episode, unspecified; G51.0 Bell's palsy; K21.9 Gastro-esophageal reflux disease without esophagitis; M54.30 Sciatica, unspecified side; Z88.0 Allergy status to penicillin; Z88.2 Allergy status to sulfonamides; Z91.048 Other nonmedicinal substance allergy status; Z88.5 Allergy status to narcotic agent; Z91.041 Radiographic dye allergy status; Z87.891 Personal history of nicotine dependence; Z79.51 Long term (current) use of inhaled steroids; Z79.899 Other long term (current) drug therapy; Z90.89 Acquired absence of other organs; Z85.51 Personal history of malignant neoplasm of bladder; Z85.47 Personal history of malignant neoplasm of testis; Z87.19 Personal history of other diseases of the digestive system
CPT/HCPCS: 88304; 47562; J1644; J1100; J2710; J2405; J2001; J3010; J1885; J1580; J2370; J2704; J1170

== ENCOUNTER 2019-02-26 16:23 | Observation (INO) | payer MEDICAID, MEDICARE ==
[2019-02-26] MEDS ORDERED: IOPAMIDOL CONTRAST (ORAL USE) VIAL PO PRN (16:30)
[2019-02-26] MEDS ORDERED: SODIUM CHLORIDE 0.9% 1,000 ML IV STA (16:30)
[2019-02-26] MEDS ORDERED: diphenhydrAMINE 50 MG/ML 1 ML VIAL IVP STA (16:34)
[2019-02-26] MEDS ORDERED: methylPREDNISolone SOD SUCCI 125 MG/2 ML VIAL IV STA (16:34)
[2019-02-26] MEDS ORDERED: FAMOTIDINE 20 MG/2 ML VIAL IV STA (16:34)
[2019-02-26] MEDS ORDERED: KETOROLAC 30 MG/ML 1 ML VIAL IVP STA (20:27)
--- NOTE | 2019-02-26 20:27 | ED ---
Abdominal Pain HPI - General Chief Complaint: Abdominal Pain Stated Complaint: poss obstruction/abd pain Time Seen by Provider: 02/26/19 16:30 Source: patient, family, RN/MD, RN notes reviewed Mode of arrival: ambulatory Limitations: no limitations - History of Present Illness Initial Comments: This is a 73-year-old male who was sent here from Dr. Bishop's office for evaluation for abdominal pain. Patient states he's had no bowel movements since Angel he complains of lower abdominal pain more over the right than the left. He denies any overt fevers chills or sweats at this time. He has had decreased oral intake. He does have a history of diverticulitis and the clinical presentation consistent with the same. MD Complaint: abdominal pain - Related Data Home Medications Medication Instructions Recorded Confirmed Omeprazole 40 mg PO DAILY 08/17/18 01/29/19 Albuterol Nebulized [Ventolin 2.5 mg INHALATION QID PRN 09/15/18 01/29/19 Nebulized] Aimovig (Unknown Dose) 1 dose SQ QMONTH 01/15/19 01/30/19 Ascorbic Acid [Vitamin C] 500 mg PO DAILY 01/15/19 01/29/19 Fluticasone/Salmeterol [Advair 1 inhalation PO BID 01/15/19 01/29/19 500-50 Diskus] Glucosam/Abimael-Msm1/C/Mane/Bosw 1 each PO DAILY 01/15/19 01/29/19 [Glucosamine-Chondroitin Tablet] Previous Rx's Medication Instructions Recorded Acetaminophen Tab [Tylenol Tab] 500 mg PO Q6H PRN #30 tablet 01/30/19 Tamsulosin [Flomax] 0.4 mg PO DAILY #5 cap.er.24h 01/30/19 Allergies Allergy/AdvReac Type Severity Reaction Status Date / Time chocolate flavor Allergy Unknown Verified 01/30/19 21:38 Iodinated Contrast Media Allergy Anaphylaxis Verified 01/30/19 21:38 [Iodinated Contrast Media - IV Dye] iodine Allergy Anaphylaxis Verified 01/30/19 21:38 Penicillins Allergy Anaphylaxis Verified 01/30/19 21:38 Sulfa (Sulfonamide Allergy Anaphylaxis Verified 01/30/19 21:38 Antibiotics) fentanyl AdvReac Severe SEVERE Verified 01/30/19 21:38 MIGRAINES adhesive AdvReac tears skin Verified 01/30/19 21:38 banana AdvReac HEADACHE Verified 01/30/19 21:38 gabapentin AdvReac Unknown Verified 01/30/19 21:38 tree nut [Nut] AdvReac HEADACHE Verified 01/30/19 21:38 yellow dye AdvReac HEADACHE Verified 01/30/19 21:38 OPIODS AdvReac Severe MIGRAINES Uncoded 01/30/19 21:38 Review of Systems ROS Statement: Those systems with pertinent positive or pertinent negative responses have been documented in the HPI. ROS Other: All systems not noted in ROS Statement are negative. 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, R testicular cancer with orchiectomy/radiation, chronic back and cervical pain, frequent debilitating migraines, bilateral sciatica, upper GI bleeds, hiatal hernia, gastritis, Diego's palsy Last Myocardial Infarction Date:: 05/25/14 History of Any Multi-Drug Resistant Organisms: None Reported Past Surgical History: Adenoidectomy, Appendectomy, Cholecystectomy, Heart Catheterization, Hernia Repair, Orthopedic Surgery, Tonsillectomy Additional Past Surgical History / Comment(s): 08/03/15 EGD with negative BX and colonoscopy with polypectomy and BX-neg, 05/27/14 normal cardiac cath, several back sx including laminectomy, spinous process removed T11 and T12/cage and arturo, bilateral arthroscopic knee surgeries with one done twice, left/Right, thumb surgeries with rt one having titanium joint, L rotator cuff repair, several nasal polypectomies, RFA cervical/back, R/L inguinal hernia repairs, rt orchiectomy Past Anesthesia/Blood Transfusion Reactions: No Reported Reaction Past Psychological History: Depression Smoking Status: Former smoker Past Alcohol Use History: None Reported Past Drug Use History: None Reported - Past Family History Father Family Medical History: Cancer Additional Family Medical History / Comment(s): Father of stomach ca at the age of 65 yrs. Mother Family Medical History: No Reported History Additional Family Medical History / Comment(s): Mother of "old age". She was 83 yrs old Brother(s) Family Medical History: Diabetes Mellitus Sister(s) Family Medical History: Diabetes Mellitus Additional Family Medical History / Comment(s): breast ca (sisters) General Exam - General Exam Comments Initial Comments: This is a well-developed sec appearing male who is awake alert oriented 3 Limitations: no limitations General appearance: alert, in no apparent distress Head exam: Present: atraumatic, normocephalic, normal inspection Eye exam: Present: normal appearance, PERRL, EOMI. Absent: scleral icterus, conjunctival injection, periorbital swelling ENT exam: Present: mucous membranes dry Neck exam: Present: normal inspection. Absent: tenderness, meningismus, ly mphadenopathy Respiratory exam: Present: normal lung sounds bilaterally. Absent: respiratory distress, wheezes, rales, rhonchi, stridor Cardiovascular Exam: Present: normal rhythm, tachycardia, normal heart sounds. Absent: systolic murmur, diastolic murmur, rubs, gallop, clicks GI/Abdominal exam: Present: soft, tenderness (Is palpation of the lower administration the right some voluntary guarding no overt rebound.), normal bowel sounds. Absent: distended, guarding, rebound, rigid Rectal exam: Present: deferred Extremities exam: Present: normal inspection, full ROM, normal capillary refill. Absent: tenderness, pedal edema, joint swelling, calf tenderness Back exam: Present: normal inspection Neurological exam: Present: alert, oriented X3, CN II-XII intact Psychiatric exam: Present: normal affect, normal mood Skin exam: Present: warm, dry, intact, normal color. Absent: rash Course Vital Signs 02/26/19 17:09 Temperature 98.1 F Pulse Rate 116 H Respiratory 18 Rate Blood Pressure 134/85 O2 Sat by Pulse 95 Oximetry Medical Decision Making - Medical Decision Making The patient's case as previously been discussed with Dr. Bishop. I did discuss the findings thus far the patient family patient will be admitted is pending results of labs and CAT scan. Dr. Bishop will monitor the above. Disposition Clinical Impression: Acute diverticulitis, Abdominal pain, Dehydration, Constipation Disposition[facility] Condition: Fair Referrals: Lul Garcia MD [Primary Care Provider] - 1-2 days
[2019-02-26 21:01] LABS: Basophils # (A) 0.1 k/uL (0-0.2); Basophils % (A) 1 %; Eosinophils # (A) 0.5 k/uL (0-0.7); Eosinophils % (A) 6 %; HCT 52.5 % (39.0-53.0); HGB 17.4 gm/dL (13.0-17.5); Lymphocytes # (A) 1.6 k/uL (1.0-4.8); Lymphocytes % (A) 18 %; MCH 32.2 pg (25.0-35.0); MCHC 33.2 g/dL (31.0-37.0); MCV 96.9 fL (80.0-100.0); Mean Platelet Volume 8.1; Monocytes # (A) 0.5 k/uL (0-1.0); Monocytes % (A) 6 %; Neutrophils # (A) 6.1 k/uL (1.3-7.7); Neutrophils % (A) 67 %; Platelet Count 281 k/uL (150-450); RBC 5.41 m/uL (4.30-5.90); RDW 14.5 % (11.5-15.5)
[2019-02-26] MEDS ORDERED: ONDANSETRON 4 MG/2 ML VIAL IVP PRN (21:01)
[2019-02-26] MEDS ORDERED: NALOXONE 0.4 MG/ML 1 ML VIAL IV PRN (21:01)
[2019-02-26] MEDS ORDERED: ALBUTEROL NEBULIZED 2.5 MG/3 ML INHALATION PRN (21:04)
[2019-02-26] MEDS ORDERED: PANTOPRAZOLE 40 MG/10 ML VIAL IVP STA (21:04)
[2019-02-26 21:16] LABS: INR 0.9 (<1.2); Partial Thromboplastin Time 26.8 sec (22.0-30.0); Prothrombin Time 9.8 sec (9.0-12.0)
[2019-02-26 21:22] LABS: ALT 35 U/L (4-49); AST 45 U/L (17-59); African American GFR (CKD) >90 (>60 ml/min/1.73 sqM); Albumin 4.8 g/dL (3.5-5.0); Alkaline Phosphatase 76 U/L (38-126); Amylase 59 U/L (30-110); Anion Gap 12 mmol/L; Blood Urea Nitrogen 16 mg/dL (9-20); Calcium 10.5 mg/dL (8.4-10.2); Carbon Dioxide 26 mmol/L (22-30); Chloride 101 mmol/L (98-107); Creatine Kinase 145 U/L (55-170); Glucose 97 mg/dL (74-99); Non-African American GFR(CKD) 89 (>60 ml/min/1.73 sqM); Potassium 4.5 mmol/L (3.5-5.1); Sodium 139 mmol/L (137-145); Total Bilirubin 1.5 mg/dL (0.2-1.3)
[2019-02-26] MEDS: SODIUM CHLORIDE 0.9% 1,000 ML IV SCH (22:41)
--- NOTE | 2019-02-26 22:46 | CT ---
EXAMINATION TYPE: CT abdomen pelvis w con DATE OF EXAM: 02/26/2019 COMPARISON: November 28, 2018 HISTORY: Left lower quadrant abdominal pain. CT DLP: 1822.8 mGycm Automated exposure control for dose reduction was used. CONTRAST: Performed with IV Contrast, patient injected with 100ml mL of Isovue 300. There is mild subsegmental atelectasis at the right lung base. Heart size is normal. There is no agustin cardial effusion. Liver shows no focal defect. Spleen is intact. Stomach is intact. There is no pancreatic mass. Gallbl adder is not seen. The bile ducts are not dilated. There are multiple small calcifications in the subcutaneous diaphragmatic soft tissue under the right hemidiaphragm and outside of the liver. The clinical significance is not clear. These could BE granu teresa and appear unchanged. There is no adrenal mass. Kidneys show satisfactory contrast opacification. There is no hydronephrosi s. Ureters are not dilated. Abdominal aorta is atheromatous. The bladder distends smoothly. There is no inguinal hernia. There are sigmoid diverticula without evidence of diverticulitis. There is no mesenteric edema. There is no ascites or free air. Appendix is not definitely seen. There is no sign of thickened appendix. There is no sign of a bowel obstruction. There is a second-degree L5-S1 spondylolisthesis. There is posterior fusion surgery from L4 to S1. Th ere is no lumbar compression fracture. The bony pelvis is intact. IMPRESSION: No sign of acute abdomen and pelvis. Minimal atelectasis at the right lung base. There is improvement compared to old exam with clearing of the moderate pleural fluid and atelectasis.
[2019-02-26] MEDS ORDERED: ACETAMINOPHEN TAB 500 MG TAB PO PRN (23:50)
[2019-02-27] MEDS: ACETAMINOPHEN IV (For NPO) 1,000 MG in EMPTY BAG 1 BAG IVPB SCH ×4 (01:16→18:03)
[2019-02-27 02:25] LABS: Appearance,Urine Clear (Clear); Bilirubin,Urine Negative (Negative); Blood,Urine Negative (Negative); Color,Urine Yellow; Glucose,Urine (UA) Negative (Negative); Ketones,Urine 1+ (Negative); Leukocyte Esterase,Urine Negative (Negative); Nitrite,Urine Negative (Negative); Protein,Urine Trace (Negative); Specific Gravity,Urine 1.026 (1.001-1.035); Urobilinogen,Urine <2.0 mg/dL (<2.0)
[2019-02-27] MEDS: SODIUM CHLORIDE 0.9% 1,000 ML IV SCH ×2 (05:05→13:57)
[2019-02-27] MEDS ORDERED: MAGNESIUM HYDROXIDE 2,400 MG/10 ML CUP PO PRN (07:15)
[2019-02-27] MEDS ORDERED: SODIUM CHLORIDE 0.9% 1,000 ML IV ONE (07:15)
[2019-02-27] MEDS ORDERED: MAGNESIUM CITRATE 296 ML BOTTLE PO ONE (08:00)
[2019-02-27] MEDS: IPRATROPIUM-ALBUTEROL 3 ML NEB INHALATION SCH ×2 (08:30→19:03)
--- NOTE | 2019-02-27 08:31 | P.CONS ---
History of Present Illness - Reason for Consult Consult date: 02/27/19 - Chief Complaint Constipation - History of Present Illness This is a 73-year-old white male essentially admitted for chronic constipation and abdominal pain. The patient supposedly has had minimal bowel movements since the of last month. Computed tomography scan does not show any acute abdominal obstruction however. The patient is now admitted to surgery. He has history of COPD and chronic headaches which are stable. No dysuria stated. 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, R testicular cancer with orchiectomy/radiation, chronic back and cervical pain, frequent debilitating migraines, bilateral sciatica, upper GI bleeds, hiatal hernia, gastritis, Diego's palsy Last Myocardial Infarction Date:: 05/25/14 History of Any Multi-Drug Resistant Organisms: None Reported Past Surgical History: Adenoidectomy, Appendectomy, Cholecystectomy, Heart Catheterization, Hernia Repair, Orthopedic Surgery, Tonsillectomy Additional Past Surgical History / Comment(s): 08/03/15 EGD with negative BX and colonoscopy with polypectomy and BX-neg, 05/27/14 normal cardiac cath, several back sx including laminectomy, spinous process removed T11 and T12/cage and arturo, bilateral arthroscopic knee surgeries with left done twice, thumb surgeries with rt one having titanium joint, L rotator cuff repair, several nasal polypectomies, RFA cervical/back, R/L inguinal hernia repairs, rt orchiectomy; diaphragmatic hernia repair Oct 23 2018 at [facility] Past Anesthesia/Blood Transfusion Reactions: No Reported Reaction Past Psychological History: Depression Additional Psychological History / Comment(s): Patient resides with his spouse of 55 yrs. He has chronic pain and debilitating migraines. He has a cane and walker which he uses prn. He has falls. He drives some but spouse does most of the driving. Spouse works afternoons at [employer] in patient check in/previous MRI. She has a grandchild or cousin who can stay with pt when necessary. Smoking Status: Former smoker Past Alcohol Use History: None Reported Additional Past Alcohol Use History / Comment(s): Pt started smoking in 1959(smoked 1.5 ppd) and quit cigarettes in 2003. Past Drug Use History: None Reported - Past Family History Father Family Medical History: Cancer Additional Family Medical History / Comment(s): Father of stomach ca at the age of 65 yrs. Mother Family Medical History: No Reported History Additional Family Medical History / Comment(s): Mother of "old age". She was 83 yrs old Brother(s) Family Medical History: Diabetes Mellitus Additional Family Medical History / Comment(s): brain tumor Sister(s) Family Medical History: Diabetes Mellitus Additional Family Medical History / Comment(s): breast ca (sisters) Medications and Allergies Home Medications Medication Instructions Recorded Confirmed Type Omeprazole 40 mg PO DAILY 08/17/18 02/26/19 History Fluticasone/Salmeterol [Advair 1 puff INHALATION RT-BID 01/15/19 02/26/19 History 500-50 Diskus] Acetaminophen Tab [Tylenol Tab] 500 mg PO Q6H PRN #30 tablet 01/30/19 02/26/19 Rx Erenumab-Aooe [Aimovig 70 mg SQ Q28D 02/26/19 02/26/19 History Autoinjector] Ipratropium-Albuterol Nebulize 3 ml INHALATION RT-BID 02/26/19 02/26/19 History [Duoneb 0.5 mg-3 mg/3 ml Soln] Allergies Allergy/AdvReac Type Severity Reaction Status Date / Time chocolate flavor Allergy Unknown Verified 02/26/19 21:19 Iodinated Contrast Media Allergy Anaphylaxis Verified 02/26/19 21:19 [Iodinated Contrast Media - IV Dye] iodine Allergy Anaphylaxis Verified 02/26/19 21:19 Penicillins Allergy Anaphylaxis Verified 02/26/19 21:19 Sulfa (Sulfonamide Allergy Anaphylaxis Verified 02/26/19 21:19 Antibiotics) fentanyl AdvReac Severe SEVERE Verified 02/26/19 21:19 MIGRAINES adhesive AdvReac tears skin Verified 02/26/19 21:19 banana AdvReac HEADACHE Verified 02/26/19 21:19 gabapentin AdvReac Confusion Verified 02/26/19 21:19 tree nut [Nut] AdvReac HEADACHE Verified 02/26/19 21:19 yellow dye AdvReac HEADACHE Verified 02/26/19 21:19 OPIODS AdvReac Severe MIGRAINES Uncoded 01/30/19 21:38 Physical Exam Vitals: Vital Signs Temp Pulse Pulse Resp BP BP Pulse Ox 02/27/19 07:00 97.5 F L 14 136/71 94 L 02/27/19 04:09 18 02/27/19 02:04 97.9 F 68 18 132/73 94 L 02/27/19 00:15 18 02/26/19 23:45 97.7 F 75 16 148/77 96 02/26/19 22:45 18 02/26/19 22:32 98.0 F 80 18 138/87 96 02/26/19 17:09 98.1 F 116 H 18 134/85 95 Intake and Output 02/26/19 02/27/19 02/27/19 22:59 06:59 14:59 Other: # Voids 2 Weight 62.868 kg - Constitutional General appearance: thin - EENT Eyes: EOMI - Neck Neck: no lymphadenopathy - Gastrointestinal General gastrointestinal: soft, tenderness - Neurologic Neurologic: CNII-XII intact - Musculoskeletal Musculoskeletal: gait normal - Psychiatric Psychiatric: A&O x's 3 Results CBC & Chem 7: 02/26/19 20:40 02/26/19 20:40 Labs: Abnormal Lab Results - Last 24 Hours (Table) 02/26/19 02/26/19 Range/Units 20:00 20:40 Calcium 10.5 H (8.4-10.2) mg/dL Total Bilirubin 1.5 H (0.2-1.3) mg/dL Urine Protein Trace H (Negative) Urine Ketones 1+ H (Negative) Assessment and Plan (1) Abdominal pain Current Visit: Yes Status: Acute Code(s): R10.9 - UNSPECIFIED ABDOMINAL PAIN SNOMED Code(s): 67286675 (2) Acute diverticulitis Current Visit: Yes Status: Acute Code(s): K57.92 - DVTRCLI OF INTEST, PART UNSP, W/O PERF OR ABSCESS W/O BLEED SNOMED Code(s): 055456408 (3) Constipation Current Visit: Yes Status: Acute Code(s): K59.00 - CONSTIPATION, UNSPECIFIED SNOMED Code(s): 89133409 (4) Dehydration Current Visit: Yes Status: Acute Code(s): E86.0 - DEHYDRATION SNOMED Code(s): 96656423 Plan: Reconcile home medications as necessary. Await surgical evaluation. Check CBC and CMP in a.m. She orders otherwise.
[2019-02-27] MEDS: LACTULOSE 20 GM/30 ML CUP PO SCH ×2 (08:40→16:21)
[2019-02-27] MEDS ORDERED: PANTOPRAZOLE 40 MG TABLET PO STA (11:39)
--- NOTE | 2019-02-27 12:24 | P.GSHP ---
<Hyun Smith A - Last Filed: 02/27/19 12:21> History of Present Illness H&P Date: 02/27/19 Chief Complaint: abdominal pain CHIEF COMPLAINT: abdominal pain HISTORY OF PRESENT ILLNESS: 73 year old male who presented to the emergency room with a chief complaint of abdominal pain. Patient reports he has a history of diverticulosis. He states he has not had a bowel movement since . He is passing some flatus. Denies nausea or vomiting. He does report decreased oral intake due to feeling bloated and full. Denies fever or chills. PAST MEDICAL HISTORY: See list. PAST SURGICAL HISTORY: See list. MEDICATIONS: See list. ALLERGIES: See list. SOCIAL HISTORY: No illicit drug use. REVIEW OF SYSTEMS: CONSTITUTIONAL: Denies fever or chills. HEENT: Denies blurred vision, vision changes, or eye pain. Denies hemoptysis ENDOCRINE: Denies heat or cold intolerance. CARDIOVASCULAR: Denies chest pain or pressure. RESPIRATORY: No shortness of breath. GASTROINTESTINAL: See HPI for pertinent findings NEURO: Denies history of seizures. PSYCH: No depression or suicidal ideation HEMATOLOGIC: Denies bleeding disorders. LYMPHATIC: The patient denies any lumps and bumps around the neck. GENITOURINARY: Denies any blood in urine or increased urinary frequency. MUSCULOSKELETAL: Denies myalgias. Denies joint swelling. Denies decreased range of motion beyond patients baseline. SKIN: Denies pruitis. Denies rash. PHYSICAL EXAM: VITAL SIGNS: Reviewed GENERAL: Well-developed in no acute distress. HEENT: No sclera icterus. Extraocular movements grossly intact. Moist buccal mucosa. Head is atraumatic, normocephalic. Hears conversational speech. No nasal drainage. NECK: Supple without lymphadenopathy. CHEST: Non-labored respirations and equal bilateral excursions. CARDIOVASCULAR: Regular rate with regular rhythm. Palpable 2+ radial pulses. ABDOMEN: Soft. Nondistended. Nontender. MUSCULOSKELETAL: No clubbing, cyanosis or edema. NEUROLOGIC: No focal or lateralizing signs. Cranial nerves II through XII grossly intact. PSYCH: Appropriate affect. Alert and oriented to person, place and time. SKIN: Well perfused. Good skin turgor. LABORATORY DATA: W BC 9.0. Hemoglobin 17.4. Platelet count 281. Sodium 139. Potassium 4.5. BUN 16. Creatinine 0.80. IMAGING: CT abdomen pelvis: Sigmoid diverticulosis without evidence of acute diverticulitis. No ascites or free air. No signs of bowel obstruction. ASSESSMENT: 1. Abdominal pain 2. Constipation 3. Diverticulosis PLAN: -Clear liquid diet -Magnesium citrate, Lactulose, and Milk of Magnesia ordered. No enemas or rectal suppositories at this time due to history of diverticulosis Nurse practitioner note has been reviewed by physician. Signing provider agrees with the documented findings, assessment, and plan of care. 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, R testicular cancer with orchiectomy/radiation, chronic back and cervical pain, frequent debilitating migraines, bilateral sciatica, upper GI bleeds, hiatal hernia, gastritis, Diego's palsy Last Myocardial Infarction Date:: 05/25/14 History of Any Multi-Drug Resistant Organisms: None Reported Past Surgical History: Adenoidectomy, Appendectomy, Cholecystectomy, Heart Catheterization, Hernia Repair, Orthopedic Surgery, Tonsillectomy Additional Past Surgical History / Comment(s): 08/03/15 EGD with negative BX and colonoscopy with polypectomy and BX-neg, 05/27/14 normal cardiac cath, several back sx including laminectomy, spinous process removed T11 and T12/cage and arturo, bilateral arthroscopic knee surgeries with left done twice, thumb surgeries with rt one having titanium joint, L rotator cuff repair, several nasal polypectomies, RFA cervical/back, R/L inguinal hernia repairs, rt orchiectomy; diaphragmatic hernia repair Oct 23 [address] [facility] Past Anesthesia/Blood Transfusion Reactions: No Reported Reaction Past Psychological History: Depression Additional Psychological History / Comment(s): Patient resides with his spouse of 55 yrs. He has chronic pain and debilitating migraines. He has a cane and walker which he uses prn. He has falls. He drives some but spouse does most of the driving. Spouse works afternoons at [employer] in patient check in/previous MRI. She has a grandchild or cousin who can stay with pt when necessary. Smoking Status: Former smoker Past Alcohol Use History: None Reported Additional Past Alcohol Use History / Comment(s): Pt started smoking in 1959(smoked 1.5 ppd) and quit cigarettes in 2003. Past Drug Use History: None Reported - Past Family History Father Family Medical History: Cancer Additional Family Medical History / Comment(s): Father of stomach ca at the age of 65 yrs. Mother Family Medical History: No Reported History Additional Family Medical History / Comment(s): Mother of "old age". She was 83 yrs old Brother(s) Family Medical History: Diabetes Mellitus Additional Family Medical History / Comment(s): brain tumor Sister(s) Family Medical History: Diabetes Mellitus Additional Family Medical History / Comment(s): breast ca (sisters) Medications and Allergies Home Medications Medication Instructions Recorded Confirmed Type Omeprazole 40 mg PO DAILY 08/17/18 02/26/19 History Fluticasone/Salmeterol [Advair 1 puff INHALATION RT-BID 01/15/19 02/26/19 History 500-50 Diskus] Acetaminophen Tab [Tylenol] 500 mg PO Q6H PRN #30 tablet 01/30/19 02/26/19 Rx Erenumab-Aooe [Aimovig 70 mg SQ Q28D 02/26/19 02/26/19 History Autoinjector] Ipratropium-Albuterol Nebulize 3 ml INHALATION RT-BID 02/26/19 02/26/19 History [Duoneb 0.5 mg-3 mg/3 ml Soln] Allergies Allergy/AdvReac Type Severity Reaction Status Date / Time chocolate flavor Allergy Unknown Verified 02/26/19 21:19 Iodinated Contrast Media Allergy Anaphylaxis Verified 02/26/19 21:19 [Iodinated Contrast Media - IV Dye] iodine Allergy Anaphylaxis Verified 02/26/19 21:19 Penicillins Allergy Anaphylaxis Verified 02/26/19 21:19 Sulfa (Sulfonamide Allergy Anaphylaxis Verified 02/26/19 21:19 Antibiotics) fentanyl AdvReac Severe SEVERE Verified 02/26/19 21:19 MIGRAINES adhesive AdvReac tears skin Verified 02/26/19 21:19 banana AdvReac HEADACHE Verified 02/26/19 21:19 gabapentin AdvReac Confusion Verified 02/26/19 21:19 tree nut [Nut] AdvReac HEADACHE Verified 02/26/19 21:19 yellow dye AdvReac HEADACHE Verified 02/26/19 21:19 OPIODS AdvReac Severe MIGRAINES Uncoded 01/30/19 21:38 Surgical - Exam Vital Signs Temp Pulse Resp BP Pulse Ox 98.1 F 116 H 18 134/85 95 02/26/19 17:09 02/26/19 17:09 02/26/19 17:09 02/26/19 17:09 02/26/19 17:09 Results - Labs 02/26/19 20:40 02/26/19 20:40 Abnormal Lab Results - Last 24 Hours (Table) 02/26/19 02/26/19 Range/Units 20:00 20:40 Calcium 10.5 H (8.4-10.2) mg/dL Total Bilirubin 1.5 H (0.2-1.3) mg/dL Urine Protein Trace H (Negative) Urine Ketones 1+ H (Negative) Diabetes panel 02/26/19 Range/Units 20:40 Sodium 139 (137-145) mmol/L Potassium 4.5 (3.5-5.1) mmol/L Chloride 101 (98-107) mmol/L Carbon Dioxide 26 (22-30) mmol/L BUN 16 (9-20) mg/dL Creatinine 0.80 (0.66-1.25) mg/dL Glucose 97 (74-99) mg/dL Calcium 10.5 H (8.4-10.2) mg/dL AST 45 (17-59) U/L ALT 35 (4-49) U/L Alkaline Phosphatase 76 (38-126) U/L Total Protein 8.0 (6.3-8.2) g/dL Albumin 4.8 (3.5-5.0) g/dL Calcium panel 02/26/19 Range/Units 20:40 Calcium 10.5 H (8.4-10.2) mg/dL Albumin 4.8 (3.5-5.0) g/dL Pituitary panel 02/26/19 Range/Units 20:40 Sodium 139 (137-145) mmol/L Potassium 4.5 (3.5-5.1) mmol/L Chloride 101 (98-107) mmol/L Carbon Dioxide 26 (22-30) mmol/L BUN 16 (9-20) mg/dL Creatinine 0.80 (0.66-1.25) mg/dL Glucose 97 (74-99) mg/dL Calcium 10.5 H (8.4-10.2) mg/dL Adrenal panel 02/26/19 Range/Units 20:40 Sodium 139 (137-145) mmol/L Potassium 4.5 (3.5-5.1) mmol/L Chloride 101 (98-107) mmol/L Carbon Dioxide 26 (22-30) mmol/L BUN 16 (9-20) mg/dL Creatinine 0.80 (0.66-1.25) mg/dL Glucose 97 (74-99) mg/dL Calcium 10.5 H (8.4-10.2) mg/dL Total Bilirubin 1.5 H (0.2-1.3) mg/dL AST 45 (17-59) U/L ALT 35 (4-49) U/L Alkaline Phosphatase 76 (38-126) U/L Total Protein 8.0 (6.3-8.2) g/dL Albumin 4.8 (3.5-5.0) g/dL <Bonnie Padilla N - Last Filed: 02/28/19 08:37> History of Present Illness As above. Recommend bowel regimen. Likely discharge within 24 hours. Surgical - Exam Vital Signs Temp Pulse Resp BP Pulse Ox 98.1 F 116 H 18 134/85 95 02/26/19 17:09 02/26/19 17:09 02/26/19 17:09 02/26/19 17:09 02/26/19 17:09 Results - Labs 02/26/19 20:40 02/26/19 20:40 Microbiology - Last 24 Hours (Table) 02/26/19 20:40 Blood Culture - Preliminary Blood No Growth after 24 hours
[2019-02-27] MEDS ORDERED: KETOROLAC 30 MG/ML 1 ML VIAL IVP SCH (18:00)
[2019-02-27 19:05] VITALS: PULSE 84
[2019-02-28] MEDS: LACTULOSE 20 GM/30 ML CUP PO SCH (00:51)
[2019-02-28 01:03] VITALS: BP 150/87; RESP 15; TEMP 97.5
[2019-02-28] MEDS ORDERED: PANTOPRAZOLE 40 MG TABLET PO SCH (07:30)
--- NOTE | 2019-02-28 08:36 | P.DS ---
Providers Date of admission: 02/26/19 21:05 Expected date of discharge: 02/27/19 Attending physician: Bonnie Padilla Primary care physician: Lul Garcia - Discharge Diagnosis(es) (1) Diverticulosis Status: Acute (2) Chronic constipation Status: Acute (3) Abdominal pain Status: Acute (4) High risk for readmission Status: Acute (5) Ileus Status: Acute Hospital Course: Patient was admitted with presumption of diverticulitis with history of diverticulosis. CT confirmed moderate stool burden. He underwent bowel prep. Abdominal pain had improved. Patient was stable for discharge for follow-up as outpatient. Patient Condition at Discharge: Stable Plan - Discharge Summary Discharge Rx Participant: Yes New Discharge Prescriptions: Continue Omeprazole 40 mg PO DAILY Fluticasone/Salmeterol [Advair 500-50 Diskus] 1 puff INHALATION RT-BID Acetaminophen Tab [Tylenol] 500 mg PO Q6H PRN #30 tablet PRN Reason: Pain Ipratropium-Albuterol Nebulize [Duoneb 0.5 mg-3 mg/3 ml Soln] 3 ml INHALATION RT-BID Erenumab-Aooe [Aimovig Autoinjector] 70 mg SQ Q28D Discharge Medication List Omeprazole 40 mg PO DAILY 08/17/18 [History] Fluticasone/Salmeterol [Advair 500-50 Diskus] 1 puff INHALATION RT-BID 01/15/19 [History] Acetaminophen Tab [Tylenol] 500 mg PO Q6H PRN #30 tablet 01/30/19 [Rx] Erenumab-Aooe [Aimovig Autoinjector] 70 mg SQ Q28D 02/26/19 [History] Ipratropium-Albuterol Nebulize [Duoneb 0.5 mg-3 mg/3 ml Soln] 3 ml INHALATION RT-BID 02/26/19 [History] Follow up Appointment(s)/Referral(s): uLl Garcia MD [Primary Care Provider] - 1-2 days Bonnie Padilla MD [STAFF PHYSICIAN] - 03/10/19 Patient Instructions/Handouts: Constipation (DC), Diverticulosis (DC), Diverticulosis Diet (GEN) Activity/Diet/Wound Care/Special Instructions: Diet as tolerated. Please take laxatives as prescribed. Discharge Disposition: HOME SELF-CARE
== END 2019-02-27 20:38 | disposition home or self-care (01) ==
LOC: EC 16:23 → 4SSUR 21:05 → INTOOBSV 21:05
PROVIDERS: ADMIT Surgery Plastic and Reconstructive Surgery; ATTEND Surgery Plastic and Reconstructive Surgery
DX: R10.30 Lower abdominal pain, unspecified (principal); E86.0 Dehydration; F32.9 Major depressive disorder, single episode, unspecified; G43.909 Migraine, unspecified, not intractable, without status migrainosus; G89.29 Other chronic pain; I25.2 Old myocardial infarction; J44.9 Chronic obstructive pulmonary disease, unspecified; K56.7 Ileus, unspecified; K57.92 Diverticulitis of intestine, part unspecified, without perforation or abscess without bleeding; Z79.899 Other long term (current) drug therapy; Z80.0 Family history of malignant neoplasm of digestive organs; Z80.3 Family history of malignant neoplasm of breast; Z83.3 Family history of diabetes mellitus; Z85.47 Personal history of malignant neoplasm of testis; Z85.51 Personal history of malignant neoplasm of bladder; Z87.891 Personal history of nicotine dependence; Z88.0 Allergy status to penicillin; Z88.2 Allergy status to sulfonamides; Z88.8 Allergy status to other drugs, medicaments and biological substances; Z91.041 Radiographic dye allergy status; Z88.5 Allergy status to narcotic agent; Z91.018 Allergy to other foods
CPT/HCPCS: 96376; 96361; 96375 ×2; 96374; 99285; 36415; 94640 ×2; 80053; 82150; 82550; 83690; 85025; 85610; 85730; 81003; 87040; 74177; G0378 ×2; J1200; J2930; J1885 ×2; J0131; C9113; Q9967

== ENCOUNTER 2019-03-01 08:56 | Inpatient (IN) | payer MEDICAID, MEDICARE ==
[2019-03-01] MEDS ORDERED: KETOROLAC 30 MG/ML 1 ML VIAL IVP STA (10:11)
[2019-03-01] MEDS ORDERED: SODIUM CHLORIDE 0.9% 500 ML 500 ML IV STA (10:11)
--- NOTE | 2019-03-01 10:18 | ED ---
General Adult HPI - General Chief complaint: Abdominal Pain Stated complaint: Abd Pain Time Seen by Provider: 03/01/19 09:15 Source: patient, family, RN notes reviewed, old records reviewed Mode of arrival: wheelchair Limitations: no limitations - History of Present Illness Initial comments: This is a 73-year-old male who presents to the emergency department complaining of abdominal pain. Patient was recently admitted to the hospital for abdominal pain and according to the patient it was believed to be constipation. Patient states this pain is different and it's in the right lower quadrant and feels deeper. Patient states he's had his gallbladder out a month and a half ago and has had his appendix out in the past. Patient denies any fever chills. Patient denies any vomiting. Patient has any diarrhea. Patient denies any back pain. Patient denies any dysuria hematuria urinary frequency. - Related Data Home Medications Medication Instructions Recorded Confirmed Omeprazole 40 mg PO DAILY 08/17/18 02/26/19 Fluticasone/Salmeterol [Advair 1 puff INHALATION RT-BID 01/15/19 02/26/19 500-50 Diskus] Erenumab-Aooe [Aimovig 70 mg SQ Q28D 02/26/19 02/26/19 Autoinjector] Ipratropium-Albuterol Nebulize 3 ml INHALATION RT-BID 02/26/19 02/26/19 [Duoneb 0.5 mg-3 mg/3 ml Soln] Previous Rx's Medication Instructions Recorded Acetaminophen Tab [Tylenol] 500 mg PO Q6H PRN #30 tablet 01/30/19 Allergies Allergy/AdvReac Type Severity Reaction Status Date / Time chocolate flavor Allergy Unknown Verified 03/01/19 09:15 Iodinated Contrast Media Allergy Anaphylaxis Verified 03/01/19 09:15 [Iodinated Contrast Media - IV Dye] iodine Allergy Anaphylaxis Verified 03/01/19 09:15 Penicillins Allergy Anaphylaxis Verified 03/01/19 09:15 Sulfa (Sulfonamide Allergy Anaphylaxis Verified 03/01/19 09:15 Antibiotics) fentanyl AdvReac Severe SEVERE Verified 03/01/19 09:15 MIGRAINES adhesive AdvReac tears skin Verified 03/01/19 09:15 banana AdvReac HEADACHE Verified 03/01/19 09:15 gabapentin AdvReac Confusion Verified 03/01/19 09:15 tree nut [Nut] AdvReac HEADACHE Verified 03/01/19 09:15 yellow dye AdvReac HEADACHE Verified 03/01/19 09:15 OPIODS AdvReac Severe MIGRAINES Uncoded 03/01/19 09:15 Review of Systems ROS Statement: Those systems with pertinent positive or pertinent negative responses have been documented in the HPI. ROS Other: All systems not noted in ROS Statement are negative. 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, R testicular cancer with orchiectomy/radiation, chronic back and cervical pain, frequent debilitating migraines, bilateral sciatica, upper GI bleeds, hiatal hernia, gastritis, Diego's palsy Last Myocardial Infarction Date:: 05/25/14 History of Any Multi-Drug Resistant Organisms: None Reported Past Surgical History: Adenoidectomy, Appendectomy, Cholecystectomy, Heart Catheterization, Hernia Repair, Orthopedic Surgery, Tonsillectomy Additional Past Surgical History / Comment(s): 08/03/15 EGD with negative BX and colonoscopy with polypectomy and BX-neg, 05/27/14 normal cardiac cath, several back sx including laminectomy, spinous process removed T11 and T12/cage and arturo, bilateral arthroscopic knee surgeries with left done twice, thumb surgeries with rt one having titanium joint, L rotator cuff repair, several nasal polypectomies, RFA cervical/back, R/L inguinal hernia repairs, rt orchiectomy; diaphragmatic hernia repair Oct 23 2018 at [facility] Past Anesthesia/Blood Transfusion Reactions: No Reported Reaction Past Psychological History: Depression Smoking Status: Former smoker Past Alcohol Use History: None Reported Past Drug Use History: None Reported - Past Family History Father Family Medical History: Cancer Additional Family Medical History / Comment(s): Father of stomach ca at the age of 65 yrs. Mother Family Medical History: No Reported History Additional Family Medical History / Comment(s): Mother of "old age". She was 83 yrs old Brother(s) Family Medical History: Diabetes Mellitus Additional Family Medical History / Comment(s): brain tumor Sister(s) Family Medical History: Diabetes Mellitus Additional Family Medical History / Comment(s): breast ca (sisters) General Exam - General Exam Comments Initial Comments: GENERAL: Patient is well-developed and well-nourished. Patient is nontoxic and well- hydrated and is mild distress. ENT: Neck is soft and supple. No significant lymphadenopathy is noted. Oropharynx is clear. Moist mucous membranes. Neck has full range of motion without eliciting any pain. T EYES: The sclera were anicteric and conjunctiva were pink and moist. Extraocular movements were intact and pupils were equal round and reactive to light. Eyelids were unremarkable. PULMONARY: Unlabored respirations. Good breath sounds bilaterally. No audible rales rhon chi or wheezing was noted. CARDIOVASCULAR: There is a regular rate and rhythm without any murmurs gallops or rubs. ABDOMEN: Patient has mild abdominal pain in the right lower quadrant and in the right upper and left upper quadrants SKIN: Skin is clear with no lesions or rashes and otherwise unremarkable. NEUROLOGIC: Patient is alert and oriented x3. Cranial nerves II through XII are grossly intact. Motor and sensory are also intact. Normal speech, volume and content. Symmetrical smile. MUSCULOSKELETAL: Normal extremities with adequate strength and full range of motion. No lower extremity swelling or edema. No calf tenderness. LYMPHATICS: No significant lymphadenopathy is noted PSYCHIATRIC: Normal psychiatric evaluation. Limitations: no limitations Course Vital Signs 03/01/19 03/01/19 03/01/19 09:12 09:14 10:14 Temperature 98.0 F Pulse Rate 76 68 Respiratory 18 20 20 Rate Blood Pressure 154/82 134/75 O2 Sat by Pulse 93 L 95 Oximetry Medical Decision Making - Medical Decision Making KUB shows no acute abnormality I will back into reevaluate the patient was still having pain but felt a little better. Patient did not feel comfortable going home. Family requested to be admitted and have Dr. Aleman see the patient. I spoke with [facility] and they agreed to admit the patient admitted the patient wrote admitting orders and consult with Dr. Aleman - Lab Data Result diagrams: 03/01/19 10:10 03/01/19 10:10 Lab Results 03/01/19 03/01/19 03/01/19 Range/Units 10:10 10:10 10:10 WBC 11.7 H (3.8-10.6) k/uL RBC 4.45 (4.30-5.90) m/uL Hgb 14.6 (13.0-17.5) gm/dL Hct 43.7 (39.0-53.0) % MCV 98.1 (80.0-100.0) fL MCH 32.8 (25.0-35.0) pg MCHC 33.4 (31.0-37.0) g/dL RDW 15.0 (11.5-15.5) % Plt Count 203 (150-450) k/uL Neutrophils % 77 % Lymphocytes % 11 % Monocytes % 6 % Eosinophils % 3 % Basophils % 0 % Neutrophils # 9.0 H (1.3-7.7) k/uL Lymphocytes # 1.3 (1.0-4.8) k/uL Monocytes # 0.7 (0-1.0) k/uL Eosinophils # 0.4 (0-0.7) k/uL Basophils # 0.0 (0-0.2) k/uL Sodium 141 (137-145) mmol/L Potassium 4.4 (3.5-5.1) mmol/L Chloride 107 (98-107) mmol/L Carbon Dioxide 29 (22-30) mmol/L Anion Gap 5 mmol/L BUN 13 (9-20) mg/dL Creatinine 0.73 (0.66-1.25) mg/dL Est GFR (CKD-EPI)AfAm >90 (>60 ml/min/1.73 sqM) Est GFR (CKD-EPI)NonAf >90 (>60 ml/min/1.73 sqM) Glucose 95 (74-99) mg/dL Plasma Lactic Acid Finesse 1.8 (0.7-2.0) mmol/L Calcium 8.9 (8.4-10.2) mg/dL Total Bilirubin 1.1 (0.2-1.3) mg/dL AST 29 (17-59) U/L ALT 22 (4-49) U/L Alkaline Phosphatase 59 (38-126) U/L Total Protein 6.0 L (6.3-8.2) g/dL Albumin 3.4 L (3.5-5.0) g/dL Amylase 44 (30-110) U/L Lipase 50 (23-300) U/L Disposition Clinical Impression: Abdominal pain Disposition: ADMITTED IP TO THIS [facility] Referrals: Lul Garcia MD [Primary Care Provider] - 1-2 days Time of Disposition: 12:21
[2019-03-01 10:35] LABS: Basophils % (A) 0 %; Eosinophils # (A) 0.4 k/uL (0-0.7); Eosinophils % (A) 3 %; HCT 43.7 % (39.0-53.0); HGB 14.6 gm/dL (13.0-17.5); Lymphocytes # (A) 1.3 k/uL (1.0-4.8); Lymphocytes % (A) 11 %; MCH 32.8 pg (25.0-35.0); MCHC 33.4 g/dL (31.0-37.0); MCV 98.1 fL (80.0-100.0); Mean Platelet Volume 7.6; Monocytes # (A) 0.7 k/uL (0-1.0); Monocytes % (A) 6 %; Neutrophils % (A) 77 %; Platelet Count 203 k/uL (150-450); RBC 4.45 m/uL (4.30-5.90); WBC 11.7 k/uL (3.8-10.6)
[2019-03-01 10:40] LABS: ALT 22 U/L (4-49); AST 29 U/L (17-59); African American GFR (CKD) >90 (>60 ml/min/1.73 sqM); Albumin 3.4 g/dL (3.5-5.0); Alkaline Phosphatase 59 U/L (38-126); Amylase 44 U/L (30-110); Anion Gap 5 mmol/L; Blood Urea Nitrogen 13 mg/dL (9-20); Calcium 8.9 mg/dL (8.4-10.2); Carbon Dioxide 29 mmol/L (22-30); Chloride 107 mmol/L (98-107); Glucose 95 mg/dL (74-99); Non-African American GFR(CKD) >90 (>60 ml/min/1.73 sqM); Potassium 4.4 mmol/L (3.5-5.1); Sodium 141 mmol/L (137-145); Total Bilirubin 1.1 mg/dL (0.2-1.3)
--- NOTE | 2019-03-01 10:49 | XR ---
EXAMINATION TYPE: XR KUB DATE OF EXAM: 03/01/2019 CLINICAL DATA: 73-year-old male abdominal pain, [facility] COMPARISON: 01/30/2019. CT 02/26/2019 FINDINGS: Lung bases are clear. No evidence for free intraperitoneal air. Oral contrast has progressed to the left side of the colon. Residual oral contrast within the cecum. No dilated small bowel loops. Tiny air-fluid level centrally in the abdomen. Some oral contrast outli floridalma diverticula in the sigmoid colon. Lumbar fusion hardware. IMPRESSION: 1. The patient's 02/26/2019 CT is reviewed. There is some heterogeneous nodular enhancement of the pros bray gland. Correlate with PSA values and prostate ultrasound if indicated to exclude a focus of tino y prostate cancer. 2. A few small air fluid level centrally in the abdomen could be transient or could represent a regio nal ileus or arthritis. No evidence for bowel obstruction or free air. 3. Sigmoid diverticulosis.
[2019-03-01] MEDS ORDERED: HYDROmorphone 0.5 MG/0.5 ML SYRINGE IVP STA (12:20)
[2019-03-01] MEDS ORDERED: SODIUM CHLORIDE 0.9% 1,000 ML IV ONE (12:22)
[2019-03-01] MEDS ORDERED: HYDROmorphone 0.5 MG/0.5 ML SYRINGE IVP PRN ×2 (12:23→14:35)
[2019-03-01 12:35] LABS: Appearance,Urine Clear (Clear); Bilirubin,Urine Negative (Negative); Blood,Urine Negative (Negative); Color,Urine Light Yellow; Glucose,Urine (UA) Negative (Negative); Ketones,Urine Negative (Negative); Leukocyte Esterase,Urine Negative (Negative); Nitrite,Urine Negative (Negative); Protein,Urine Negative (Negative); Specific Gravity,Urine 1.008 (1.001-1.035); Urobilinogen,Urine <2.0 mg/dL (<2.0)
[2019-03-01] MEDS ORDERED: ALPRAZolam 0.25 MG TAB PO PRN (14:38)
[2019-03-01] MEDS ORDERED: ACETAMINOPHEN TAB 500 MG TAB PO PRN (14:38)
[2019-03-01] MEDS: HYDROmorphone 1 MG/ML 1 ML SYRINGE IVP PRN ×3 (14:41→20:53)
[2019-03-01] MEDS: HEPARIN SODIUM,PORCINE 5,000 UNIT/ML 1 ML VIAL SQ SCH ×2 (15:27→20:52)
[2019-03-01] MEDS: PANTOPRAZOLE 40 MG/10 ML VIAL IVP SCH ×2 (15:27→20:52)
[2019-03-01] MEDS ORDERED: IPRATROPIUM-ALBUTEROL 3 ML NEB INHALATION SCH (20:00)
[2019-03-01] MEDS ORDERED: SYMBICORT 160-4.5 MCG INHALER INHALATION SCH (20:00)
--- NOTE | 2019-03-01 21:16 | XR ---
EXAMINATION TYPE: XR chest 1V portable DATE OF EXAM: 03/01/2019 COMPARISON: 08/17/2018 INDICATION: COPD, short of breath TECHNIQUE: Single frontal view of the chest is obtained. FINDINGS: The heart size is normal. The pulmonary vasculature is normal. There is an infiltrate along the right diaphragm. Correlate for atelectasis or pneumonia. There is so me chronic elevation of the right diaphragm. IMPRESSION: 1. Right lower lobe infiltrate most likely on the basis of atelectasis.
[2019-03-01] MEDS ORDERED: IPRATROPIUM-ALBUTEROL 3 ML NEB INHALATION PRN (22:08)
[2019-03-01] MEDS ORDERED: TEMAZEPAM 15 MG CAP PO PRN (22:09)
[2019-03-01] MEDS ORDERED: HYDROcodone/APAP 5-325MG 1 EACH TAB PO PRN (22:09)
[2019-03-01] MEDS: LEVOFLOXACIN 500MG-D5W PMX 500 MG in DEXTROSE/WATER 1 100ML.BAG IVPB SCH (23:09)
[2019-03-01] MEDS: methylPREDNISolone SOD SUCCI 125 MG/2 ML VIAL IV SCH (23:09)
[2019-03-02] MEDS: HYDROmorphone 1 MG/ML 1 ML SYRINGE IVP PRN ×5 (00:41→20:57)
[2019-03-02] MEDS: ONDANSETRON 4 MG/2 ML VIAL IVP PRN ×3 (01:03→18:07)
[2019-03-02] MEDS: methylPREDNISolone SOD SUCCI 125 MG/2 ML VIAL IV SCH ×3 (04:55→17:43)
[2019-03-02 07:13] LABS: Glucose,Whole Blood 62 mg/dL (75-99)
--- NOTE | 2019-03-02 07:41 | P.HPIM ---
History of Present Illness H&P Date: 03/02/19 Chief Complaint: Migraine headache with recurrent abdominal pain. This is a history and physical on a 73-year-old white male who was recently discharged for significant abdominal pain most likely related to constipation. General surgery has been discussing whether to do exploratory laparotomy for element of adhesions. He was discharged and now readmitted secondary to severe nausea and right upper quadrant pain. KUB was negative. But because of his recurrence, general surgery is re-consulted and appropriate medication for migraine headache is being given. The patient has struggled in the past with opiate dependence due to the migraine headaches. Element of COPD as otherwise noted. Await general surgery evaluation. Review of Systems Constitutional: Reports chronic headaches, Reports chronic pain, Denies chills, Denies fever Eyes: denies blurred vision, denies pain Ears, nose, mouth and throat: Denies headache, Denies sore throat Cardiovascular: Denies chest pain, Denies shortness of breath Respiratory: Denies cough Gastrointestinal: Reports as per HPI Genitourinary: Denies incontinence Musculoskeletal: Denies myalgias Integumentary: Denies pruritus, Denies rash Neurological: Denies numbness, Denies weakness 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, R testicular cancer with orchiectomy/radiation, chronic back and cervical pain, frequent debilitating migraines, bilateral sciatica, upper GI bleeds, hiatal hernia, gastritis, Diego's palsy Last Myocardial Infarction Date:: 05/25/14 History of Any Multi-Drug Resistant Organisms: None Reported Past Surgical History: Adenoidectomy, Appendectomy, Cholecystectomy, Heart Catheterization, Hernia Repair, Orthopedic Surgery, Tonsillectomy Additional Past Surgical History / Comment(s): 08/03/15 EGD with negative BX and colonoscopy with polypectomy and BX-neg, 05/27/14 normal cardiac cath, several back sx including laminectomy, spinous process removed T11 and T12/cage and arturo, bilateral arthroscopic knee surgeries with left done twice, thumb surgeries with rt one having titanium joint, L rotator cuff repair, several nasal polypectomies, RFA cervical/back, R/L inguinal hernia repairs, rt orchiectomy; diaphragmatic hernia repair Oct 23 2018 at [facility] Past Anesthesia/Blood Transfusion Reactions: No Reported Reaction Past Psychological History: Depression Additional Psychological History / Comment(s): Patient resides with his spouse of 55 yrs. He has chronic pain and debilitating migraines. He has a cane and walker which he uses prn. He has falls. He drives some but spouse does most of the driving. Spouse works afternoons at [employer] in patient check in/previous MRI. She has a grandchild or cousin who can stay with pt when necessary. Smoking Status: Former smoker Past Alcohol Use History: None Reported Additional Past Alcohol Use History / Comment(s): Pt started smoking in (smoked 1.5 ppd) and quit cigarettes in 2003. Past Drug Use History: None Reported - Past Family History Father Family Medical History: Cancer Additional Family Medical History / Comment(s): Father of stomach ca at the age of 65 yrs. Mother Family Medical History: No Reported History Additional Family Medical History / Comment(s): Mother of "old age". She was 83 yrs old Brother(s) Family Medical History: Diabetes Mellitus Additional Family Medical History / Comment(s): brain tumor Sister(s) Family Medical History: Diabetes Mellitus Additional Family Medical History / Comment(s): breast ca (sisters) Medications and Allergies Home Medications Medication Instructions Recorded Confirmed Type Omeprazole 40 mg PO DAILY 08/17/18 03/01/19 History Fluticasone/Salmeterol [Advair 1 puff INHALATION RT-BID 01/15/19 03/01/19 History 500-50 Diskus] Acetaminophen Tab [Tylenol] 500 mg PO Q6H PRN #30 tablet 01/30/19 03/01/19 Rx Erenumab-Aooe [Aimovig 70 mg SQ Q28D 02/26/19 03/01/19 History Autoinjector] Ipratropium-Albuterol Nebulize 3 ml INHALATION RT-BID 02/26/19 03/01/19 History [Duoneb 0.5 mg-3 mg/3 ml Soln] Allergies Allergy/AdvReac Type Severity Reaction Status Date / Time chocolate flavor Allergy Unknown Verified 03/01/19 12:38 Iodinated Contrast Media Allergy Anaphylaxis Verified 03/01/19 12:38 [Iodinated Contrast Media - IV Dye] iodine Allergy Anaphylaxis Verified 03/01/19 12:38 Penicillins Allergy Anaphylaxis Verified 03/01/19 12:38 Sulfa (Sulfonamide Allergy Anaphylaxis Verified 03/01/19 12:38 Antibiotics) fentanyl AdvReac Severe SEVERE Verified 03/01/19 12:38 MIGRAINES adhesive AdvReac tears skin Verified 03/01/19 12:38 banana AdvReac HEADACHE Verified 03/01/19 12:38 gabapentin AdvReac Confusion Verified 03/01/19 12:38 tree nut [Nut] AdvReac HEADACHE Verified 03/01/19 12:38 yellow dye AdvReac HEADACHE Verified 03/01/19 12:38 OPIODS AdvReac Severe MIGRAINES Uncoded 03/01/19 09:15 Physical Exam Vitals: Vital Signs Temp Pulse Pulse Pulse Resp BP BP 03/02/19 01:06 98.5 F 89 18 03/02/19 00:00 18 03/01/19 20:48 80 03/01/19 20:37 80 03/01/19 19:00 97.9 F 93 18 03/01/19 13:55 97.5 F L 74 16 174/90 03/01/19 13:40 78 18 161/87 03/01/19 12:42 97.5 F L 72 14 174/90 03/01/19 12:23 69 18 142/72 03/01/19 10:14 68 20 134/75 03/01/19 09:14 20 03/01/19 09:12 98.0 F 76 18 154/82 BP Pulse Ox 03/02/19 01:06 144/69 96 03/02/19 00:00 03/01/19 20:48 03/01/19 20:37 03/01/19 19:00 139/73 96 03/01/19 13:55 207/99 95 03/01/19 13:40 96 03/01/19 12:42 96 03/01/19 12:23 98 03/01/19 10:14 95 03/01/19 09:14 03/01/19 09:12 93 L Intake and Output 03/01/19 03/02/19 03/02/19 22:59 06:59 14:59 Other: Voiding Method Toilet # Voids 1 - Constitutional General appearance: thin - EENT Eyes: EOMI - Neck Neck: no lymphadenopathy - Cardiovascular Rhythm: regular Heart sounds: normal: S1, S2 Abnormal Heart Sounds: no S3 Gallop - Gastrointestinal General gastrointestinal: normal bowel sounds, tenderness - Neurologic Neurologic: CNII-XII intact - Psychiatric Psychiatric: A&O x's 3, appropriate affect, intact judgment & insight Results CBC & Chem 7: 03/01/19 10:10 03/01/19 10:10 Labs: Abnormal Lab Results - Last 24 Hours (Table) 03/01/19 03/01/19 03/02/19 Range/Units 10:10 10:10 07:11 WBC 11.7 H (3.8-10.6) k/uL Neutrophils # 9.0 H (1.3-7.7) k/uL POC Glucose (mg/dL) 62 L (75-99) mg/dL Total Protein 6.0 L (6.3-8.2) g/dL Albumin 3.4 L (3.5-5.0) g/dL Thrombosis Risk Factor Assmnt - Choose All That Apply Each Factor Represents 1 point: Abnormal pulmonary function (COPD), Varicose veins Other Risk Factors: Yes Each Risk Factor Represents 2 Points: Age 61-74 years, Malignancy Other congenital or acquired thrombophilia - If yes, enter type in comment: No Thrombosis Risk Factor Assessment Total Risk Factor Score: 6 Thrombosis Risk Factor Assessment Level: High Risk Assessment and Plan (1) Abdominal pain Current Visit: Yes Status: Acute Code(s): R10.9 - UNSPECIFIED ABDOMINAL PAIN SNOMED Code(s): 02232825 (2) COPD (chronic obstructive pulmonary disease) Current Visit: No Status: Acute Code(s): J44.9 - CHRONIC OBSTRUCTIVE PULMONARY DISEASE, UNSPECIFIED SNOMED Code(s): 42054986 (3) Hx of nicotine dependence Current Visit: No Status: Acute Code(s): Z87.891 - PERSONAL HISTORY OF NICOTINE DEPENDENCE SNOMED Code(s): 713242744 (4) Intractable migraine Current Visit: No Status: Acute Code(s): G43.919 - MIGRAINE, UNSP, INTRACTABLE, WITHOUT STATUS MIGRAINOSUS SNOMED Code(s): 666636894 (5) Weight loss Current Visit: No Status: Acute Code(s): R63.4 - ABNORMAL WEIGHT LOSS SNOMED Code(s): 22453355 (6) Nausea & vomiting Current Visit: No Status: Resolved Code(s): R11.2 - NAUSEA WITH VOMITING, UN SPECIFIED SNOMED Code(s): 52679283 Plan: Continue supportive care. New. Check CBC and CMP in a.m. Await general surgery reevaluation. Discussed prognosis at length with the patient. See orders otherwise. Reconcile home medications. Continue Zofran at this time.
[2019-03-02] MEDS: MULTIVITAMINS, THERA 1 EACH TAB PO SCH (07:44)
[2019-03-02] MEDS: HEPARIN SODIUM,PORCINE 5,000 UNIT/ML 1 ML VIAL SQ SCH ×2 (07:44→20:57)
[2019-03-02] MEDS: PANTOPRAZOLE 40 MG/10 ML VIAL IVP SCH ×2 (07:44→21:36)
[2019-03-02 07:54] LABS: African American GFR (CKD) >90 (>60 ml/min/1.73 sqM); Anion Gap 12 mmol/L; Blood Urea Nitrogen 11 mg/dL (9-20); Calcium 8.9 mg/dL (8.4-10.2); Carbon Dioxide 23 mmol/L (22-30); Chloride 103 mmol/L (98-107); Glucose 63 mg/dL (74-99); Non-African American GFR(CKD) >90 (>60 ml/min/1.73 sqM); Sodium 138 mmol/L (137-145)
[2019-03-02] MEDS: INSULIN ASPART (NovoLOG) 100 UNIT/ML VIAL SQ SCH ×4 (07:55→21:15)
[2019-03-02 07:56] LABS: Potassium 4.9 mmol/L (3.5-5.1)
[2019-03-02] MEDS: IPRATROPIUM-ALBUTEROL 3 ML NEB INHALATION SCH ×4 (08:01→18:56)
--- NOTE | 2019-03-02 08:02 | HP ---
HISTORY AND PHYSICAL CHIEF COMPLAINT: Abdominal pain. HISTORY OF PRESENT ILLNESS: This is a 73-year-old gentleman with a past medical history of multiple medical problems including COPD, history of GERD, GI bleed, history of bladder cancer, history of right breast cancer, history of orchectomy, history of chronic back pain, history of debilitating migraine, history of bilateral sciatica, appendectomy, adenoidectomy being followed by in the outpatient setting, underwent laparoscopic assisted cholecystectomy last month. Subsequently, patient had abdominal pain and patient was admitted for one time and was evaluated. Currently, the patient still has abdominal pain on the right side of the abdomen which is increasing with respiration. Patient had some cough. Also, patient came to [facility] and admitted for further evaluation treatment. The plain x-ray of the abdomen did not show much of note except for minimal air-fluid levels. There is no history of fever or rigors. No history of headache, seizures. PAST MEDICAL HISTORY: History of COPD, history of GERD, history of GI bleed, appendectomy, history of adenoidectomy, history of hernia surgery. MEDICATIONS: Prior to admission home medications are: 1. Omeprazole 40 mg p.o. daily. 2. DuoNeb q.i.d. 3. Advair 1 puff b.i.d. 4. Aimovig autoinjector. 5. Tylenol p.r.n. ALLERGIES: CHOCOLATE FLAVOR, PENICILLIN, SULFA, FENTANYL, BANANA, GABAPENTIN, TREE NUTS and YELLOW DYE OPIOIDS. FAMILY HISTORY: History of cancer in the family. SOCIAL HISTORY: Previous history of smoking. No history of current smoking or alcohol intake. REVIEW OF SYSTEMS: ENT: No diminished vision or diminished hearing. CARDIOVASCULAR: No angina. RESPIRATORY: As mentioned earlier. GI: As mentioned earlier. : No dysuria. NERVOUS SYSTEMS: No focal deficits. ALLERGY/IMMUNOLOGY: : No asthma or hayfever. MUSCULOSKELETAL: As mentioned earlier. HEMATOLOGY/ONCOLOGY: No history of anemia. ENDOCRINE: No history of diabetes or hypothyroidism. CONSTITUTIONAL: As mentioned earlier. DERMATOLOGY: Negative. NERVOUS SYSTEM: As mentioned, moves all four limbs. SKIN: No ulcer, no rashes. JOINTS: No active deforming arthropathy. LABS: WBC 7.2, hemoglobin 14.6, and albumin 3.4. Chest x-ray reviewed personally. Possible right lower pneumonia. ASSESSMENT: 1. Right lower lobe pneumonia, possibly gram-negative. 2. Increased WBC. 3. Right upper quadrant abdominal pain. 4. Hypoalbuminemia. 5. History of recent laparoscopic cholecystectomy. 6. History of chronic obstructive pulmonary disease. 7. Gastroesophageal reflux disease. 8. History of gastrointestinal bleed. 9. History of bladder cancer with BCG treatment. 10.History of right testicular cancer, has orchiectomy radiation. 11.Chronic back pain and cervical pain. 12.Number frequent debility migraine history of bilateral sciatica, history. 13.History of Diego's palsy. 14.History of adenoidectomy. 15.History of appendectomy. 16.History of cholecystectomy. 17.History of degenerative joint disease, laminectomy history. 18.History of depression. 19.Remote history of nicotine dependence. 20.FULL CODE. RECOMMENDATION: In this \73-year-old gentleman who presented with multiple complex medical issues, will monitor the patient closely, continue with the current management. Will initiate broad- spectrum IV antibiotics, otherwise, I would also recommend resume the home medication, bronchodilators and incentive spirometry. Surgical evaluation resume symptomatic treatment. Prognosis guarded because of multiple complex medical issues. A copy of this forwarded to who is the primary physician. will follow tomorrow. MMODL / IJN: [id number] / MTDLatosha
[2019-03-02 08:31] LABS: Basophils # (A) 0.1 k/uL (0-0.2); Basophils % (A) 1 %; Eosinophils # (A) 0.3 k/uL (0-0.7); Eosinophils % (A) 4 %; HCT 43.1 % (39.0-53.0); HGB 14.4 gm/dL (13.0-17.5); Lymphocytes % (A) 11 %; MCH 33.2 pg (25.0-35.0); MCHC 33.3 g/dL (31.0-37.0); MCV 99.7 fL (80.0-100.0); Macrocytosis Slight; Mean Platelet Volume 9.6; Monocytes # (A) 0.5 k/uL (0-1.0); Monocytes % (A) 6 %; Neutrophils # (A) 6.9 k/uL (1.3-7.7); Neutrophils % (A) 77 %; Platelet Count 184 k/uL (150-450); RBC 4.33 m/uL (4.30-5.90); RDW 14.7 % (11.5-15.5)
--- NOTE | 2019-03-02 11:00 | P.GSCN ---
<Hyun Smith - Last Filed: 03/02/19 12:00> History of Present Illness Consult date: 03/02/19 Reason for Consult: Abdominal pain Requesting physician: Yogesh El History of present illness: CHIEF COMPLAINT: Abdominal pain HISTORY OF PRESENT ILLNESS: 73 year old male who was recently admitted to the hospital for abdominal pain secondary to constipation. Patient received magnesium citrate, lactulose, and milk of magnesia at that time. He had multiple large bowel movements and was discharged home in stable condition. Patient reports he began having abdominal pain Saturday morning. He states the pain was in the right lower quadrant. He is passing flatus. Normal bowel movement Saturday. He is complaining of a migrane headache and reports nausea secondary to his headache, but otherwise denies nausea or vomiting. Patient recently underwent robotic-assisted laparoscopic lysis of adhesions and cholecystectomy Dr. Padilla in January 2019. Patient also underwent colonoscopy in December 2018 revealing sigmoid diverticulosis and sigmoid stricture. Patient's sigmoid colon was found to have severe tortuosity. Patient underwent barium enema following colonoscopy which did not reveal an obstruction. PAST MEDICAL HISTORY: See list. PAST SURGICAL HISTORY: See list. SOCIAL HISTORY: No illicit drug use. REVIEW OF SYSTEMS: CONSTITUTIONAL: Denies fever or chills. HEENT: Denies blurred vision, vision changes, or eye pain. Denies hemoptysis . Reports headache. CARDIOVASCULAR: Denies chest pain or pressure. RESPIRATORY: No shortness of breath. GASTROINTESTINAL: Refer to HPI for pertinent findings HEMATOLOGIC: Denies bleeding disorders. GENITOURINARY: Denies any blood in urine. SKIN: Denies pruitis. Denies rash. PHYSICAL EXAM: VITAL SIGNS: Reviewed. GENERAL: Well-developed in no acute distress. HEENT: No sclera icterus. Extraocular movements grossly intact. Moist buccal mucosa. Head is atraumatic, normocephalic. ABDOMEN: Soft. Nondistended. Minimal tenderness with palpation to right lower quadrant. NEUROLOGIC: Alert and oriented. Cranial nerves II through XII grossly intact. LABORATORY DATA: WBC 9.0. Hemoglobin 14.4. Platelet count 184. Potassium 4.9. BUN 11. Creatinine 0.61. Lactic acid 1.8. IMAGIN. Computed tomography scan performed on 02/26/2019 reveals no signs of acute abdomen or pelvis. Minimal atelectasis. No ascites or free air. No sign of a thickened appendix. Diverticulosis without evidence of acute diverticulitis. 2. Abdominal x-ray: A few small anterior air fluid centrally in the abdomen could be transient represent regional ileus or enteritis. No evidence of bowel obstruction or free air. Sigmoid diverticulosis. ASSESSMENT: 1. Abdominal pain 2. Diverticulosis without evidence of acute diverticulitis. 3. History of constipation 4. History of cholecystectomy PLAN: Recommend treatment of migraine headache. Anticipate nausea will improve when headache resolves Begin clear liquid diet Miralax and colace daily to prevent constipation as patient was recently admitted due to constipation Nurse practitioner note has been reviewed by physician. Signing provider agrees with the documented findings, assessment, and plan of care. 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, R testicular cancer with orchiectomy/radiation, chronic back and cervical pain, frequent debilitating migraines, bilateral sciatica, upper GI bleeds, hiatal hernia, gastritis, Diego's palsy Last Myocardial Infarction Date:: 05/25/14 History of Any Multi-Drug Resistant Organisms: None Reported Past Surgical History: Adenoidectomy, Appendectomy, Cholecystectomy, Heart Catheterization, Hernia Repair, Orthopedic Surgery, Tonsillectomy Additional Past Surgical History / Comment(s): 08/03/15 EGD with negative BX and colonoscopy with polypectomy and BX-neg, 05/27/14 normal cardiac cath, several back sx including laminectomy, spinous process removed T11 and T12/cage and arturo, bilateral arthroscopic knee surgeries with left done twice, thumb surgeries with rt one having titanium joint, L rotator cuff repair, several nasal polypectomies, RFA cervical/back, R/L inguinal hernia repairs, rt orchiectomy; diaphragmatic hernia repair Oct 23 2018 at [facility] Past Anesthesia/Blood Transfusion Reactions: No Reported Reaction Past Psychological History: Depression Additional Psychological History / Comment(s): Patient resides with his spouse of 55 yrs. He has chronic pain and debilitating migraines. He has a cane and walker which he uses prn. He has falls. He drives some but spouse does most of the driving. Spouse works afternoons at [employer] in patient check in/previous MRI. She has a grandchild or cousin who can stay with pt when necessary. Smoking Status: Former smoker Past Alcohol Use History: None Reported Additional Past Alcohol Use History / Comment(s): Pt started smoking in 1960(smoked 1.5 ppd) and quit cigarettes in 2003. Past Drug Use History: None Reported - Past Family History Father Family Medical History: Cancer Additional Family Medical History / Comment(s): Father of stomach ca at the age of 65 yrs. Mother Family Medical History: No Reported History Additional Family Medical History / Comment(s): Mother of "old age". She was 83 yrs old Brother(s) Family Medical History: Diabetes Mellitus Additional Family Medical History / Comment(s): brain tumor Sister(s) Family Medical History: Diabetes Mellitus Additional Family Medical History / Comment(s): breast ca (sisters) Medications and Allergies Home Medications Medication Instructions Recorded Confirmed Type Omeprazole 40 mg PO DAILY 08/17/18 03/01/19 History Fluticasone/Salmeterol [Advair 1 puff INHALATION RT-BID 01/15/19 03/01/19 History 500-50 Diskus] Acetaminophen Tab [Tylenol] 500 mg PO Q6H PRN #30 tablet 01/30/19 03/01/19 Rx Erenumab-Aooe [Aimovig 70 mg SQ Q28D 02/26/19 03/01/19 History Autoinjector] Ipratropium-Albuterol Nebulize 3 ml INHALATION RT-BID 02/26/19 03/01/19 History [Duoneb 0.5 mg-3 mg/3 ml Soln] Allergies Allergy/AdvReac Type Severity Reaction Status Date / Time chocolate flavor Allergy Unknown Verified 03/01/19 12:38 Iodinated Contrast Media Allergy Anaphylaxis Verified 03/01/19 12:38 [Iodinated Contrast Media - IV Dye] iodine Allergy Anaphylaxis Verified 03/01/19 12:38 Penicillins Allergy Anaphylaxis Verified 03/01/19 12:38 Sulfa (Sulfonamide Allergy Anaphylaxis Verified 03/01/19 12:38 Antibiotics) fentanyl AdvReac Severe SEVERE Verified 03/01/19 12:38 MIGRAINES adhesive AdvReac tears skin Verified 03/01/19 12:38 banana AdvReac HEADACHE Verified 03/01/19 12:38 gabapentin AdvReac Confusion Verified 03/01/19 12:38 tree nut [Nut] AdvReac HEADACHE Verified 03/01/19 12:38 yellow dye AdvReac HEADACHE Verified 03/01/19 12:38 OPIODS AdvReac Severe MIGRAINES Uncoded 03/01/19 09:15 Surgical - Exam Vital Signs Temp Pulse Resp BP Pulse Ox 98.0 F 76 18 154/82 93 L 03/01/19 09:12 03/01/19 09:12 03/01/19 09:12 03/01/19 09:12 03/01/19 09:12 Results - Labs 03/02/19 06:59 03/02/19 07:18 Abnormal Lab Results - Last 24 Hours (Table) 03/02/19 03/02/19 Range/Units 07:11 07:18 Creatinine 0.61 L (0.66-1.25) mg/dL Glucose 63 L (74-99) mg/dL POC Glucose (mg/dL) 62 L (75-99) mg/dL Diabetes panel 03/02/19 Range/Units 07:18 Sodium 138 (137-145) mmol/L Potassium 4.9 (3.5-5.1) mmol/L Chloride 103 (98-107) mmol/L Carbon Dioxide 23 (22-30) mmol/L BUN 11 (9-20) mg/dL Creatinine 0.61 L (0.66-1.25) mg/dL Glucose 63 L (74-99) mg/dL Calcium 8.9 (8.4-10.2) mg/dL Calcium panel 03/02/19 Range/Units 07:18 Calcium 8.9 (8.4-10.2) mg/dL Pituitary panel 03/02/19 Range/Units 07:18 Sodium 138 (137-145) mmol/L Potassium 4.9 (3.5-5.1) mmol/L Chloride 103 (98-107) mmol/L Carbon Dioxide 23 (22-30) mmol/L BUN 11 (9-20) mg/dL Creatinine 0.61 L (0.66-1.25) mg/dL Glucose 63 L (74-99) mg/dL Calcium 8.9 (8.4-10.2) mg/dL Adrenal panel 03/02/19 Range/Units 07:18 Sodium 138 (137-145) mmol/L Potassium 4.9 (3.5-5.1) mmol/L Chloride 103 (98-107) mmol/L Carbon Dioxide 23 (22-30) mmol/L BUN 11 (9-20) mg/dL Creatinine 0.61 L (0.66-1.25) mg/dL Glucose 63 L (74-99) mg/dL Calcium 8.9 (8.4-10.2) mg/dL <Jaren Aleman - Last Filed: 03/02/19 14:47> History of Present Illness History of present illness: As above. Patient with right lower quadrant abdominal pain. He states this was present prior to his recent cholecystectomy. The pain has been waxing and waning somewhat. Yesterday the pain was more severe so he came to the hospital for evaluation. Denies significant pain currently. Tolerating clear liquids. Workup thus far has been negative. Recent CAT scan from 02/26 reviewed. Some degree of constipation noted. Continue advancing diet. Follow-up with Dr. Bishop post discharge. Surgical - Exam Vital Signs Temp Pulse Resp BP Pulse Ox 98.0 F 76 18 154/82 93 L 03/01/19 09:12 03/01/19 09:12 03/01/19 09:12 03/01/19 09:12 03/01/19 09:12 Results - Labs 03/02/19 06:59 03/02/19 07:18 Abnormal Lab Results - Last 24 Hours (Table) 03/02/19 03/02/19 03/02/19 Range/Units 07:11 07:18 12:01 Creatinine 0.61 L (0.66-1.25) mg/dL Glucose 63 L (74-99) mg/dL POC Glucose (mg/dL) 62 L 74 L (75-99) mg/dL Diabetes panel 03/02/19 Range/Units 07:18 Sodium 138 (137-145) mmol/L Potassium 4.9 (3.5-5.1) mmol/L Chloride 103 (98-107) mmol/L Carbon Dioxide 23 (22-30) mmol/L BUN 11 (9-20) mg/dL Creatinine 0.61 L (0.66-1.25) mg/dL Glucose 63 L (74-99) mg/dL Calcium 8.9 (8.4-10.2) mg/dL Calcium panel 03/02/19 Range/Units 07:18 Calcium 8.9 (8.4-10.2) mg/dL Pituitary panel 03/02/19 Range/Units 07:18 Sodium 138 (137-145) mmol/L Potassium 4.9 (3.5-5.1) mmol/L Chloride 103 (98-107) mmol/L Carbon Dioxide 23 (22-30) mmol/L BUN 11 (9-20) mg/dL Creatinine 0.61 L (0.66-1.25) mg/dL Glucose 63 L (74-99) mg/dL Calcium 8.9 (8.4-10.2) mg/dL Adrenal panel 03/02/19 Range/Units 07:18 Sodium 138 (137-145) mmol/L Potassium 4.9 (3.5-5.1) mmol/L Chloride 103 (98-107) mmol/L Carbon Dioxide 23 (22-30) mmol/L BUN 11 (9-20) mg/dL Creatinine 0.61 L (0.66-1.25) mg/dL Glucose 63 L (74-99) mg/dL Calcium 8.9 (8.4-10.2) mg/dL
[2019-03-02 12:02] LABS: Glucose,Whole Blood 74 mg/dL (75-99)
[2019-03-02 17:04] LABS: Glucose,Whole Blood 84 mg/dL (75-99)
[2019-03-02 20:21] LABS: Glucose,Whole Blood 81 mg/dL (75-99)
[2019-03-02] MEDS: DOCUSATE 100 MG CAP PO SCH (20:57)
[2019-03-02] MEDS: LEVOFLOXACIN 500MG-D5W PMX 500 MG in DEXTROSE/WATER 1 100ML.BAG IVPB SCH (21:35)
[2019-03-03] MEDS: HYDROmorphone 1 MG/ML 1 ML SYRINGE IVP PRN ×6 (00:42→21:37)
[2019-03-03] MEDS: ONDANSETRON 4 MG/2 ML VIAL IVP PRN ×3 (00:42→16:27)
[2019-03-03] MEDS: methylPREDNISolone SOD SUCCI 125 MG/2 ML VIAL IV SCH ×5 (00:43→23:38)
[2019-03-03 06:56] LABS: Glucose,Whole Blood 99 mg/dL (75-99)
[2019-03-03] MEDS: INSULIN ASPART (NovoLOG) 100 UNIT/ML VIAL SQ SCH ×4 (07:34→22:10)
[2019-03-03] MEDS: IPRATROPIUM-ALBUTEROL 3 ML NEB INHALATION SCH ×4 (07:55→20:05)
[2019-03-03 07:57] LABS: Basophils % (A) 0 %; Eosinophils % (A) 0 %; HCT 43.4 % (39.0-53.0); HGB 13.5 gm/dL (13.0-17.5); Hypochromasia Slight; Lymphocytes # (A) 0.5 k/uL (1.0-4.8); Lymphocytes % (A) 5 %; MCH 32.3 pg (25.0-35.0); MCHC 31.1 g/dL (31.0-37.0); MCV 103.9 fL (80.0-100.0); Macrocytosis Moderate; Mean Platelet Volume 8.2; Monocytes # (A) 0.4 k/uL (0-1.0); Monocytes % (A) 4 %; Neutrophils # (A) 7.6 k/uL (1.3-7.7); Neutrophils % (A) 89 %; Platelet Count 209 k/uL (150-450); RBC 4.17 m/uL (4.30-5.90); RDW 14.6 % (11.5-15.5); WBC 8.6 k/uL (3.8-10.6)
[2019-03-03 08:21] LABS: ALT 70 U/L (4-49); AST 40 U/L (17-59); African American GFR (CKD) >90 (>60 ml/min/1.73 sqM); Albumin 3.5 g/dL (3.5-5.0); Alkaline Phosphatase 100 U/L (38-126); Anion Gap 12 mmol/L; Blood Urea Nitrogen 18 mg/dL (9-20); Calcium 9.1 mg/dL (8.4-10.2); Carbon Dioxide 22 mmol/L (22-30); Chloride 104 mmol/L (98-107); Glucose 102 mg/dL (74-99); Non-African American GFR(CKD) >90 (>60 ml/min/1.73 sqM); Potassium 5.5 mmol/L (3.5-5.1); Sodium 138 mmol/L (137-145); Total Bilirubin 0.7 mg/dL (0.2-1.3)
[2019-03-03] MEDS: DOCUSATE 100 MG CAP PO SCH ×2 (08:41→21:36)
[2019-03-03] MEDS: POLYETHYLENE GLYCOL 3350 17 GM POWD.PACK PO SCH (08:41)
[2019-03-03] MEDS: MULTIVITAMINS, THERA 1 EACH TAB PO SCH (08:41)
[2019-03-03] MEDS: HEPARIN SODIUM,PORCINE 5,000 UNIT/ML 1 ML VIAL SQ SCH ×2 (08:42→21:36)
[2019-03-03] MEDS: PANTOPRAZOLE 40 MG/10 ML VIAL IVP SCH ×2 (08:42→21:36)
--- NOTE | 2019-03-03 11:36 | P.PN ---
<Hyun Smith Jarocho - Last Filed: 03/03/19 11:31> Subjective Progress Note Date: 03/03/19 CHIEF COMPLAINT: Abdominal pain HISTORY OF PRESENT ILLNESS: Patient examined this morning at the bedside. Patient states he does not feel very well this morning. He reports abdominal pain, but only when "someone presses really hard on my side". He continues to report a headache. He feels nauseous this morning and reports throwing up a small amount of chicken broth this morning. He continues to state that his nausea is secondary to his migraine headache. He is passing small amount of fla tus this morning. PHYSICAL EXAM: VITAL SIGNS: Reviewed. GENERAL: Well-developed in no acute distress. HEENT: No sclera icterus. Extraocular movements grossly intact. Moist buccal mucosa. Head is atraumatic, normocephalic. ABDOMEN: Soft. Nondistended. Minimal tenderness with palpation to right lower quadrant. NEUROLOGIC: Alert and oriented. Cranial nerves II through XII grossly intact. ASSESSMENT: 1. Abdominal pain 2. Diverticulosis without evidence of acute diverticulitis. 3. History of constipation 4. History of cholecystectomy PLAN: Continue to recommend treatment of migraine headache per internal medicine. Ant icipate nausea will improve when headache resolves Miralax and colace daily to prevent constipation as patient was recently admitted due to constipation Despite patient having a small episode of emesis this morning, he clinically appears well with an essential benign abdominal exam. He is requesting to have his diet advanced. Will trial full liquid diet for lunch. Nurse practitioner note has been reviewed by physician. Signing provider agrees with the documented findings, assessment, and plan of care. Objective - Vital Signs Vital signs: Vital Signs Temp 98.1 F 03/03/19 07:00 Pulse 80 03/03/19 08:07 Resp 18 03/03/19 07:00 BP 146/76 03/03/19 07:00 Pulse Ox 95 03/03/19 07:00 Intake & Output 03/02/19 03/03/19 03/03/19 18:59 06:59 18:59 Intake Total 600 120 Balance 600 120 Intake: IV 600 Sodium Chloride 0.9% 1, 600 000 ml @ 75 mls/hr IV . [id number] ONE Rx#:[id number] Oral 120 Other: Voiding Method Toilet # Voids 1 - Labs CBC & Chem 7: 03/03/19 06:56 03/03/19 06:56 Labs: Abnormal Lab Results - Last 24 Hours (Table) 03/02/19 03/03/19 03/03/19 Range/Units 12:01 06:56 06:56 RBC 4.17 L (4.30-5.90) m/uL MCV 103.9 H (80.0-100.0) fL Lymphocytes # 0.5 L (1.0-4.8) k/uL Potassium 5.5 H (3.5-5.1) mmol/L Glucose 102 H (74-99) mg/dL POC Glucose (mg/dL) 74 L (75-99) mg/dL ALT 70 H (4-49) U/L Total Protein 6.0 L (6.3-8.2) g/dL <Jaren Aleman - Last Filed: 03/03/19 17:15> Subjective As above. Patient still having mild tenderness. No etiology identified thus far. Agree with advancing diet. Continue managing the patient's migraine which seems to be contributing to his nausea and vomiting. Will follow. Objective - Vital Signs Vital signs: Vital Signs Temp 98.6 F 03/03/19 15:00 Pulse 81 03/03/19 15:48 Resp 16 03/03/19 15:48 BP 115/61 03/03/19 15:00 Pulse Ox 93 L 03/03/19 15:34 Intake & Output 03/02/19 03/03/19 03/03/19 18:59 06:59 18:59 Intake Total 600 120 Balance 600 120 Intake: IV 600 Sodium Chloride 0.9% 1, 600 000 ml @ 75 mls/hr IV . [id number] ONE Rx#:[id number] Oral 120 Other: Voiding Method Toilet # Voids 1 2 - Labs CBC & Chem 7: 03/03/19 06:56 03/03/19 06:56 Labs: Abnormal Lab Results - Last 24 Hours (Table) 03/03/19 03/03/19 03/03/19 Range/Units 06:56 06:56 11:45 RBC 4.17 L (4.30-5.90) m/uL MCV 103.9 H (80.0-100.0) fL Lymphocytes # 0.5 L (1.0-4.8) k/uL Potassium 5.5 H (3.5-5.1) mmol/L Glucose 102 H (74-99) mg/dL POC Glucose (mg/dL) 103 H (75-99) mg/dL ALT 70 H (4-49) U/L Total Protein 6.0 L (6.3-8.2) g/dL 03/03/19 Range/Units 16:37 RBC (4.30-5.90) m/uL MCV (80.0-100.0) fL Lymphocytes # (1.0-4.8) k/uL Potassium (3.5-5.1) mmol/L Glucose (74-99) mg/dL POC Glucose (mg/dL) 124 H (75-99) mg/dL ALT (4-49) U/L Total Protein (6.3-8.2) g/dL
[2019-03-03 11:48] LABS: Glucose,Whole Blood 103 mg/dL (75-99)
[2019-03-03 16:40] LABS: Glucose,Whole Blood 124 mg/dL (75-99)
[2019-03-03] MEDS: LEVOFLOXACIN 500MG-D5W PMX 500 MG in DEXTROSE/WATER 1 100ML.BAG IVPB SCH (21:42)
[2019-03-03 22:17] LABS: Glucose,Whole Blood 159 mg/dL (75-99)
--- NOTE | 2019-03-03 22:24 | P.PN ---
Subjective Progress Note Date: 03/03/19 Principal diagnosis: The patient is here essentially for intractable nausea vomiting with history of migraine headaches and COPD. The patient has struggled with opiate dependence in the past. We do appreciate surgical evaluation. The patient seemingly is improving today. No significant fever or chills. Nausea is significantly improved. Objective - Vital Signs Vital signs: Vital Signs Temp 98.7 F 03/03/19 19:27 Pulse 95 03/03/19 19:27 Resp 18 03/03/19 19:27 BP 121/71 03/03/19 19:27 Pulse Ox 92 L 03/03/19 19:27 Intake & Output 03/03/19 03/03/19 03/04/19 06:59 18:59 06:59 Intake Total 120 Balance 120 Intake: Oral 120 Other: Voiding Method Toilet # Voids 1 2 - Constitutional General appearance: Present: thin - EENT Eyes: Absent: abnormal pupil - Neck Neck: Absent: lymphadenopathy - Respiratory Respiratory: bilateral: CTA - Cardiovascular Rhythm: regular Heart sounds: normal: S1, S2 Abnormal Heart Sounds: Absent: S3 Gallop - Gastrointestinal General gastrointestinal: Present: soft. Absent: tenderness - Integumentary Integumentary: Present: normal. Absent: cellulitis - Neurologic Neurologic: Present: CNII-XII intact. Absent: focal deficits - Psychiatric Psychiatric: Present: A&O x's 3 - Labs CBC & Chem 7: 03/03/19 06:56 03/03/19 06:56 Labs: Abnormal Lab Results - Last 24 Hours (Table) 03/03/19 03/03/19 03/03/19 Range/Units 06:56 06:56 11:45 RBC 4.17 L (4.30-5.90) m/uL MCV 103.9 H (80.0-100.0) fL Lymphocytes # 0.5 L (1.0-4.8) k/uL Potassium 5.5 H (3.5-5.1) mmol/L Glucose 102 H (74-99) mg/dL POC Glucose (mg/dL) 103 H (75-99) mg/dL ALT 70 H (4-49) U/L Total Protein 6.0 L (6.3-8.2) g/dL 03/03/19 03/03/19 Range/Units 16:37 22:08 RBC (4.30-5.90) m/uL MCV (80.0-100.0) fL Lymphocytes # (1.0-4.8) k/uL Potassium (3.5-5.1) mmol/L Glucose (74-99) mg/dL POC Glucose (mg/dL) 124 H 159 H (75-99) mg/dL ALT (4-49) U/L Total Protein (6.3-8.2) g/dL Assessment and Plan (1) Abdominal pain Current Visit: Yes Status: Acute Code(s): R10.9 - UNSPECIFIED ABDOMINAL PAIN SNOMED Code(s): 40497769 (2) COPD (chronic obstructive pulmonary disease) Current Visit: No Status: Acute Code(s): J44.9 - CHRONIC OBSTRUCTIVE PULMONARY DISEASE, UNSPECIFIED SNOMED Code(s): 74129752 (3) Hx of nicotine dependence Current Visit: No Status: Acute Code(s): Z87.891 - PERSONAL HISTORY OF NICOTINE DEPENDENCE SNOMED Code(s): 350168741 (4) Intractable migraine Current Visit: No Status: Acute Code(s): G43.919 - MIGRAINE, UNSP, INTRACTABLE, WITHOUT STATUS MIGRAINOSUS SNOMED Code(s): 982899077 (5) Weight loss Current Visit: No Status: Acute Code(s): R63.4 - ABNORMAL WEIGHT LOSS SNOMED Code(s): 82434917 (6) Nausea & vomiting Current Visit: No Status: Resolved Code(s): R11.2 - NAUSEA WITH VOMITING, UNSPECIFIED SNOMED Code(s): 50771732 Plan: Continue IV hydration with supportive c. Check CBC and CMP in the a.m. This time, there does not appear to be any significant surgical issue Anticipate discharge in next 24-48 Time with Patient: Greater than 30
[2019-03-04] MEDS: HYDROmorphone 1 MG/ML 1 ML SYRINGE IVP PRN (00:53)
[2019-03-04] MEDS: methylPREDNISolone SOD SUCCI 125 MG/2 ML VIAL IV SCH (06:01)
[2019-03-04 06:57] LABS: Glucose,Whole Blood 125 mg/dL (75-99)
[2019-03-04] MEDS: INSULIN ASPART (NovoLOG) 100 UNIT/ML VIAL SQ SCH (07:06)
[2019-03-04] MEDS: PANTOPRAZOLE 40 MG/10 ML VIAL IVP SCH (07:14)
[2019-03-04] MEDS: HEPARIN SODIUM,PORCINE 5,000 UNIT/ML 1 ML VIAL SQ SCH (07:14)
[2019-03-04] MEDS: POLYETHYLENE GLYCOL 3350 17 GM POWD.PACK PO SCH (07:15)
[2019-03-04] MEDS: DOCUSATE 100 MG CAP PO SCH (07:15)
[2019-03-04] MEDS: IPRATROPIUM-ALBUTEROL 3 ML NEB INHALATION SCH (07:57)
--- NOTE | 2019-03-04 08:16 | P.DS ---
Providers Date of admission: 03/01/19 12:23 Expected date of discharge: 03/04/19 Attending physician: Lul Garcia Consults: 03/01/19 12:22 Consult Physician Urgent Consulting Provider: Jaren Aleman Reason/Comments: Abdominal pain Do you want consulting provider notified?: Yes Primary care physician: Lul Garcia - Discharge Diagnosis(es) (1) Abdominal pain Current Visit: Yes Status: Acute (2) COPD (chronic obstructive pulmonary disease) Current Visit: No Status: Acute (3) Hx of nicotine dependence Current Visit: No Status: Acute (4) Intractable migraine Current Visit: No Status: Acute (5) Weight loss Current Visit: No Status: Acute (6) Nausea & vomiting Current Visit: No Status: Resolved Hospital Course: This is a discharge summary and a 73-year-old white male with history of COPD chronic migraine headaches who struggled with element of gastroenteritis dehydration. The patient was essentially readmitted after being discharged for element of gastritis ileus. The patient had significant intractable nausea and vomiting and did well after having rehydration. Surgery was consulted and at this time there will defer any type of aggressive treatment for the patient. He is not tolerating diet and voiding without difficulties. He will be discharged in stable condition to follow-up with me in about 3-5 days. Patient Condition at Discharge: Fair Plan - Discharge Summary Discharge Rx Participant: Yes New Discharge Prescriptions: New Levofloxacin [Levaquin] 500 mg PO DAILY #5 tab Multivitamins, Thera [Multivitamin (formulary)] 1 each PO DAILY@1200 tab predniSONE 0 mg PO DIRECTED #12 tab Continue Omeprazole 40 mg PO DAILY Fluticasone/Salmeterol [Advair 500-50 Diskus] 1 puff INHALATION RT-BID Acetaminophen Tab [Tylenol] 500 mg PO Q6H PRN #30 tablet PRN Reason: Pain Ipratropium-Albuterol Nebulize [Duoneb 0.5 mg-3 mg/3 ml Soln] 3 ml INHALATION RT-BID Erenumab-Aooe [Aimovig Autoinjector] 70 mg SQ Q28D Discharge Medication List Omeprazole 40 mg PO DAILY 08/17/18 [History] Fluticasone/Salmeterol [Advair 500-50 Diskus] 1 puff INHALATION RT-BID 01/15/19 [History] Acetaminophen Tab [Tylenol] 500 mg PO Q6H PRN #30 tablet 01/30/19 [Rx] Erenumab-Aooe [Aimovig Autoinjector] 70 mg SQ Q28D 02/26/19 [History] Ipratropium-Albuterol Nebulize [Duoneb 0.5 mg-3 mg/3 ml Soln] 3 ml INHALATION RT-BID 02/26/19 [History] Levofloxacin [Levaquin] 500 mg PO DAILY #5 tab 03/04/19 [Rx] Multivitamins, Thera [Multivitamin (formulary)] 1 each PO DAILY@1200 tab 03/04/19 [Rx] predniSONE 0 mg PO DIRECTED #12 tab 03/04/19 [Rx] Follow up Appointment(s)/Referral(s): Lul Garcia MD [Primary Care Provider] - 3 Days Discharge Disposition: HOME SELF-CARE
[2019-03-04 08:31] LABS: Basophils % (A) 0 %; Eosinophils % (A) 0 %; HGB 13.3 gm/dL (13.0-17.5); Lymphocytes # (A) 0.3 k/uL (1.0-4.8); Lymphocytes % (A) 3 %; MCH 32.2 pg (25.0-35.0); MCHC 32.4 g/dL (31.0-37.0); MCV 99.5 fL (80.0-100.0); Macrocytosis Slight; Mean Platelet Volume 8.8; Monocytes # (A) 0.5 k/uL (0-1.0); Monocytes % (A) 4 %; Neutrophils # (A) 10.8 k/uL (1.3-7.7); Neutrophils % (A) 91 %; Platelet Count 216 k/uL (150-450); RBC 4.12 m/uL (4.30-5.90); RDW 14.6 % (11.5-15.5); WBC 11.8 k/uL (3.8-10.6)
[2019-03-04 08:50] LABS: African American GFR (CKD) >90 (>60 ml/min/1.73 sqM); Anion Gap 7 mmol/L; Blood Urea Nitrogen 20 mg/dL (9-20); Calcium 9.5 mg/dL (8.4-10.2); Carbon Dioxide 28 mmol/L (22-30); Chloride 99 mmol/L (98-107); Glucose 139 mg/dL (74-99); Non-African American GFR(CKD) >90 (>60 ml/min/1.73 sqM); Potassium 4.6 mmol/L (3.5-5.1); Sodium 134 mmol/L (137-145)
[2019-03-04 09:12] VITALS: BP 142/70; PULSE 83; RESP 16; TEMP 98
--- NOTE | 2019-03-04 09:36 | P.PN ---
Subjective Progress Note Date: 03/04/19 Principal diagnosis: Abdominal pain Patient doing better today. Tolerating diet. Headache is now gone. No significant abdominal pain currently. He plans to go home today. Objective - Vital Signs Vital signs: Vital Signs Temp 98.0 F 03/04/19 07:00 Pulse 78 03/04/19 07:57 Resp 16 03/04/19 07:00 BP 142/70 03/04/19 07:00 Pulse Ox 95 03/04/19 07:00 Intake & Output 03/03/19 03/04/19 03/04/19 18:59 06:59 18:59 Other: Voiding Method Toilet # Voids 2 - Exam Abdomen: Soft, nontender, nondistended - Labs CBC & Chem 7: 03/04/19 07:35 03/04/19 07:35 Labs: Abnormal Lab Results - Last 24 Hours (Table) 03/03/19 03/03/19 03/03/19 Range/Units 11:45 16:37 22:08 WBC (3.8-10.6) k/uL RBC (4.30-5.90) m/uL Neutrophils # (1.3-7.7) k/uL Lymphocytes # (1.0-4.8) k/uL Sodium (137-145) mmol/L Glucose (74-99) mg/dL POC Glucose (mg/dL) 103 H 124 H 159 H (75-99) mg/dL 03/04/19 03/04/19 03/04/19 Range/Units 06:52 07:35 07:35 WBC 11.8 H (3.8-10.6) k/uL RBC 4.12 L (4.30-5.90) m/uL Neutrophils # 10.8 H (1.3-7.7) k/uL Lymphocytes # 0.3 L (1.0-4.8) k/uL Sodium 134 L (137-145) mmol/L Glucose 139 H (74-99) mg/dL POC Glucose (mg/dL) 125 H (75-99) mg/dL Assessment and Plan (1) Abdominal pain Narrative/Plan: Patient doing better at this time. Agree was discharged today. Follow-up with Dr. Bishop next week. Current Visit: Yes Status: Acute Code(s): R10.9 - UNSPECIFIED ABDOMINAL PAIN SNOMED Code(s): 73995050
--- NOTE | 2019-03-06 09:26 | CDI ---
Documentation Clarification Form Date: 03/06/2019 09:11:04 AM From: Christi Combs Phone: If you have a question about this query, please contact Marcelina Alvarez [employer] S[employer]er Apprentice at [phone] between 8am and 5pm. Admit Date: 03/01/2019 12:23:00 PM Patient Name: Dashawn Fair Visit Number: [id number] Discharge Date: 03/04/2019 10:36:00 AM ATTENTION: The Clinical Documentation Specialists (CDI) and [facility] Coding Staff appreciate your assistance in clarifying documentation. Please respond to the clarification below the line at the bottom and electronically sign. The CDI & [facility] Coding staff will review the response and follow-up if needed. Please note: Queries are made part of the Legal Health Record. If you have any questions, please contact the author of this message via ITS. Dr. Lul Garcia RLL pneumonia, possibly gram negative is documented in H and P. This diagnosis not carried through chart. Please clarify if patient had pneumonia or was this ruled out. History/Risk Factors: COPD, recent admit for ileus and gastritis Vital signs: 98.0 F, 76 bpm, 18, 154/82, 93% RA WBC/Left shift: 11.7 X-ray: RLL infiltrate most likely on the basis of atelectasis Treatment: Broad Spectrum antibiotics initiated In order to capture the severity of condition, please clarify if the condition signifies and you are treating for: Pneumonia possible gram negative Pneumonia possible gram negative ruled out-this is the correct severity Other, please specify Unable to determine MTDD
--- NOTE | 2019-04-27 09:33 | CDI ---
Documentation Clarification Form Date: 03/06/2019 resending 04/27/2019 From: Christi Combs Phone: If you have a question about this query, please contact Marcelina Alvarez Occupational Rehabilitation Aide at [phone] between 8am and 5pm. Admit Date: 03/01/2019 12:23:00 PM Patient Name: Dashawn Fair Visit Number: [id number] Discharge Date: 03/04/2019 10:36:00 AM ATTENTION: The Clinical Documentation Specialists (CDI) and [facility] Coding Staff appreciate your assistance in clarifying documentation. Please respond to the clarification below the line at the bottom and electronically sign. The CDI & [facility] Coding staff will review the response and follow-up if needed. Please note: Queries are made part of the Legal Health Record. If you have any questions, please contact the author of this message via ITS. Dr. Lul Garcia RLL pneumonia, possibly gram negative is documented in H and P. This diagnosis not carried through chart. Please clarify if patient had pneumonia or was this ruled out. History/Risk Factors: COPD, recent admit for ileus and gastritis Vital signs: 98.0 F, 76 bpm, 18, 154/82, 93% RA WBC/Left shift: 11.7 X-ray: RLL infiltrate most likely on the basis of atelectasis Treatment: Broad Spectrum antibiotics initiated In order to capture the severity of condition, please clarify if the condition signifies and you are treating for: Pneumonia possible gram negative Pneumonia possible gram negative ruled out Other, please specify Unable to determine MTDD
== END 2019-03-04 10:36 | disposition home or self-care (01) | DRG 641 ==
LOC: EC 08:56 → 4SSUR 12:23
PROVIDERS: ADMIT Family Medicine; ATTEND Family Medicine
DX: E86.0 Dehydration (principal); G43.919 Migraine, unspecified, intractable, without status migrainosus; K52.9 Noninfective gastroenteritis and colitis, unspecified; E88.09 Other disorders of plasma-protein metabolism, not elsewhere classified; Z87.891 Personal history of nicotine dependence; F32.9 Major depressive disorder, single episode, unspecified; G89.29 Other chronic pain; I25.2 Old myocardial infarction; K21.9 Gastro-esophageal reflux disease without esophagitis; K57.30 Diverticulosis of large intestine without perforation or abscess without bleeding; Z80.0 Family history of malignant neoplasm of digestive organs; Z80.3 Family history of malignant neoplasm of breast; Z83.3 Family history of diabetes mellitus; Z85.47 Personal history of malignant neoplasm of testis; Z85.51 Personal history of malignant neoplasm of bladder; Z90.49 Acquired absence of other specified parts of digestive tract; Z90.79 Acquired absence of other genital organ(s); M54.32 Sciatica, left side; M54.31 Sciatica, right side; Z92.3 Personal history of irradiation; M54.2 Cervicalgia; F11.21 Opioid dependence, in remission; R63.4 Abnormal weight loss; Z68.20 Body mass index [BMI] 20.0-20.9, adult; Z87.19 Personal history of other diseases of the digestive system; Z88.5 Allergy status to narcotic agent; Z88.0 Allergy status to penicillin; Z88.2 Allergy status to sulfonamides; Z91.041 Radiographic dye allergy status; Z80.9 Family history of malignant neoplasm, unspecified
CPT/HCPCS: 36415; 71045; 74018; 80048; 80053; 81003; 82150; 83605; 83690; 85025; 94640; 94760; 96361; 96374; 96375; 99285

== ENCOUNTER → 2019-04-01 | Outpatient (CLI) | payer MEDICAID, MEDICARE | END | disposition home or self-care (01) | LOC: LABWHC1 07:33 | PROVIDERS: ATTEND Urology | DX: C61 Malignant neoplasm of prostate (principal) | CPT/HCPCS: 36415; 84153 ==

== ENCOUNTER → 2019-04-01 | Outpatient (CLI) | payer MEDICAID, MEDICARE ==
[2019-04-01 08:45] LABS: HCT 49.8 % (39.0-53.0); HGB 16.2 gm/dL (13.0-17.5); MCH 32.9 pg (25.0-35.0); MCHC 32.6 g/dL (31.0-37.0); MCV 100.8 fL (80.0-100.0); Macrocytosis Slight; Mean Platelet Volume 8.2; Platelet Count 251 k/uL (150-450); RBC 4.94 m/uL (4.30-5.90); RDW 14.6 % (11.5-15.5)
[2019-04-01 08:53] LABS: ALT 24 U/L (4-49); AST 31 U/L (17-59); African American GFR (CKD) >90 (>60 ml/min/1.73 sqM); Albumin 4.2 g/dL (3.5-5.0); Alkaline Phosphatase 88 U/L (38-126); Anion Gap 7 mmol/L; Blood Urea Nitrogen 15 mg/dL (9-20); Calcium 9.8 mg/dL (8.4-10.2); Carbon Dioxide 31 mmol/L (22-30); Chloride 104 mmol/L (98-107); Glucose 107 mg/dL (74-99); Non-African American GFR(CKD) >90 (>60 ml/min/1.73 sqM); Sodium 142 mmol/L (137-145); Total Bilirubin 0.7 mg/dL (0.2-1.3)
== END | disposition home or self-care (01) ==
LOC: LABWHC1 07:33
PROVIDERS: ATTEND Surgery Plastic and Reconstructive Surgery
DX: Z01.812 Encounter for preprocedural laboratory examination (principal)
CPT/HCPCS: 80053; 85027; 86850; 86900; 86901

== ENCOUNTER 2019-04-09 09:17 | Inpatient (IN) | payer MEDICAID, MEDICARE ==
[2019-04-08 10:54] VITALS: BMI 19.8
[~2019-04-09 09:17] MED LIST changes: -ACETAMINOPHEN TAB 500 MG TAB PO STA; -BUPIVACAIN-EPI 0.25%-1:200,000 30 ML VIAL SQ ONE; -CLINDAMYCIN 900 MG in DEXTROSE 5% IN WATER 50 ML IVPB ONE; -DEXAMETHASONE SOD PHOSPHATE 10 MG/ML 1 ML VIAL IV ONE; -GENTAMICIN 300 MG in SODIUM CHLORIDE 0.9% 100 ML IVPB ONE; -GLYCOPYRROLATE 0.2 MG/ML 2 ML VIAL ONE; -HEPARIN SODIUM,PORCINE 5,000 UNIT/ML 1 ML VIAL SQ ONE; -HYDROmorphone 0.5 MG/0.5 ML SYRINGE IVP PRN; -KETOROLAC 30 MG/ML 1 ML VIAL IVP STA; -LACTATED RINGERS 1,000 ML IV ONE; -LACTATED RINGERS 1,000 ML IV SCH; -LIDOCAINE 1% INJ 10MG/ML (20 ML MDV) ONE; -NEOSTIGMINE 1 MG/ML 10 ML VIAL ONE; -ONDANSETRON 4 MG/2 ML VIAL IVP ONE; -PHENYLEPHRINE-0.9% NACL SYG 1 MG/10 ML SYRINGE ONE; -PROPOFOL 10 MG/ML 20 ML VIAL IV ONE; -ROCURONIUM BROMIDE 10 MG/ML 10 ML VIAL IV ONE; -SCOPOLAMINE 1.5MG/72HR PATCH TRANSDERM ONE; -TAMSULOSIN 0.4 MG CAP.ER.24H PO STA; -fentaNYL (PF) 50 MCG/ML 2 ML AMP ONE
[2019-04-09] MEDS ORDERED: PROPOFOL 10 MG/ML 20 ML VIAL IV ONE (10:47)
[2019-04-09] MEDS ORDERED: LIDOCAINE 1% INJ 10MG/ML (20 ML MDV) ONE (10:47)
--- NOTE | 2019-04-09 10:52 | P.GSHP ---
History of Present Illness H&P Date: 04/09/19 CHIEF COMPLAINT: History of sigmoid diverticulitis HISTORY OF PRESENT ILLNESS: The patient is a 73-year-old male with long-standing history of chronic constipation including large bowel obstruction secondary to sigmoid diverticulitis and sigmoid volvulus. He presents today for completion colonoscopy including sigmoid colon resection. PAST MEDICAL HISTORY: Please see list. PAST SURGICAL HISTORY: Please see list. MEDICATIONS: Please see list. ALLERGIES: Please see list. SOCIAL HISTORY: No illicit drug use FAMILY HISTORY: No reports of Crohn disease or ulcerative colitis. REVIEW OF ORGAN SYSTEMS: Additionally reports: Respiratory: History of severe COPD, including asthma. Gastrointestinal: He does report dysphagia and difficulty with eating, including abdominal gas bloat. Has GERD. CONSTITUTIONAL: No fevers or chills. No recent weight loss. EYES: Denies any trouble with vision. No glasses. HEENT: No difficulties with hearing. No nosebleeds. Has difficulty swallowing. CARDIOVASCULAR: Denies any chest pain, palpitations, or recent heart attacks. GENITOURINARY: History of bladder cancer. Past hematuria. NEUROLOGICAL: Denies any numbness or tingling along the distal extremities. Has headaches. MUSCULOSKELETAL: Has back pain, stiffness or joint arthritis. SKIN: No current skin cancer. No rash. PSYCHIATRIC: Denies current depression or suicidal thoughts. ENDOCRINE: Denies current thyroid disorders. Denies any blood sugar glucose intolerance. HEME/LYMPHATIC: Denies any lumps and bumps around the neck. No recent deep venous thrombosis. ALLERGY/IMMUNOLOGY: No immunoglobulin therapy. No immune deficiencies. BREAST: Denies current breast lumps, pain or nipple discharge. PHYSICAL EXAM: VITAL SIGNS: Stable CONSTITUTIONAL: Well developed and in no acute distress. EYES: Conjuctivae without sclera icterus. Pupils are equally round and reactive to light. Extraocular movements grossly intact. HEAD, EARS, NOSE, THROAT: Moist buccal mucosa. Head is atraumatic, normocephalic. Hears conversational speech. No nasal drainage. NECK: Supple. No JV distention. No thyroidomegaly. RESPIRATORY: Non-labored respirations and equal bilateral excursions. No gross wheezes. CARDIOVASCULAR: Regular rate and rhythm. Extremities without moderate edema. Palpable 2+ radial pulses. LYMPH: No neck lymphadenopathy. No axillary lymphadenopathy. MUSCULOSKELETAL: Nail and fingers with good capillary refill. SKIN: Warm and well perfused with good skin turgor. NEUROLOGIC: Cranial nerves I through XII grossly intact. Sensation upper and extremities intact. No focal or lateralizing signs. PSYCH: Appropriate affect. Alert and oriented to person, place and time. Displays appropriate insight. Abdomen: Scaphoid, soft, nontender. ASSESSMENT: 1. History of sigmoid diverticulitis 2. History of large bowel obstruction and chronic constipation PLAN: 1. Benefits and risks of surgical intervention sigmoid colectomy reviewed. Robotic-assisted approach was also described. 2. Will need completion colonoscopy to exclude pathology 3. DVT prophylaxis. 4. Antibiotic prophylaxis. 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, R testicular cancer with orchiectomy/radiation, chronic back and cervical pain, frequent debilitating migraines, bilateral sciatica, upper GI bleeds, hiatal hernia, gastritis, Diego's palsy Last Myocardial Infarction Date:: 05/25/14 History of Any Multi-Drug Resistant Organisms: None Reported Past Surgical History: Adenoidectomy, Appendectomy, Back Surgery, Cholecystectomy, Heart Catheterization, Hernia Repair, Orthopedic Surgery, Tonsillectomy Additional Past Surgical History / Comment(s): 08/03/15 EGD colonoscopy,l cardiac cath, several back sx including laminectomy, spinous process removed T11 and T12/cage and arturo, bilateral arthroscopic knee surgeries, left thumb surgeries with rt one having titanium joint, L rotator cuff repair, several nasal polypectomies, RFA cervical/back, R/L inguinal hernia repairs, rt orchiectomy; diaphragmatic hernia repair Past Anesthesia/Blood Transfusion Reactions: No Reported Reaction Past Psychological History: Depression Additional Psychological History / Comment(s): Patient resides with his spouse of 55 yrs. He has chronic pain and debilitating migraines. He has a cane and walker which he uses prn. He has falls. He drives some but spouse does most of the driving. Spouse works afternoons at [employer] in patient check in/previous MRI. She has a grandchild or cousin who can stay with pt when necessary. Smoking Status: Former smoker Past Alcohol Use History: None Reported Additional Past Alcohol Use History / Comment(s): Pt started smoking in 1959 and quit cigarettes in 2003, smoked 1 1/2ppd Past Drug Use History: None Reported - Past Family History Father Family Medical History: Cancer Additional Family Medical History / Comment(s): Father of stomach ca at the age of 65 yrs. Mother Family Medical History: No Reported History Additional Family Medical History / Comment(s): Mother of "old age". She was 83 yrs old Brother(s) Family Medical History: Diabetes Mellitus Additional Family Medical History / Comment(s): brain tumor Sister(s) Family Medical History: Diabetes Mellitus Additional Family Medical History / Comment(s): breast ca (sisters) Medications and Allergies Home Medications Medication Instructions Recorded Confirmed Type Omeprazole 40 mg PO QAM 08/17/18 04/09/19 History Fluticasone/Salmeterol [Advair 1 puff INHALATION RT-BID 01/15/19 04/09/19 History 500-50 Diskus] Erenumab-Aooe [Aimovig 70 mg SQ Q28D 02/26/19 04/09/19 History Autoinjector] Ipratropium-Albuterol Nebulize 3 ml INHALATION RT-BID 02/26/19 04/09/19 History [Duoneb 0.5 mg-3 mg/3 ml Soln] Multivitamins, Thera [Multivitamin 1 each PO DAILY@1200 tab 03/04/19 04/09/19 Rx (formulary)] Allergies Allergy/AdvReac Type Severity Reaction Status Date / Time chocolate flavor Allergy TRIGGERS Verified 04/09/19 10:02 MIGRAINE Iodinated Contrast Media Allergy Anaphylaxis Verified 04/09/19 10:02 [Iodinated Contrast Media - IV Dye] iodine Allergy Anaphylaxis Verified 04/09/19 10:02 peanut Allergy TRIGGERS Verified 04/09/19 10:02 MIGRAINES Penicillins Allergy Anaphylaxis Verified 04/09/19 10:02 Sulfa (Sulfonamide Allergy Anaphylaxis Verified 04/09/19 10:02 Antibiotics) fentanyl AdvReac Severe SEVERE Verified 04/09/19 10:02 MIGRAINES adhesive AdvReac tears skin Verified 04/09/19 10:02 banana AdvReac HEADACHE Verified 04/09/19 10:02 gabapentin AdvReac Confusion Verified 04/09/19 10:02 tree nut [Nut] AdvReac HEADACHE Verified 04/09/19 10:02 yellow dye AdvReac HEADACHE Verified 04/09/19 10:02 OPIODS AdvReac Severe MIGRAINES Uncoded 04/09/19 10:02 Surgical - Exam Vital Signs Temp Pulse Resp BP Pulse Ox 98.1 F 91 16 152/86 96 04/09/19 09:56 04/09/19 09:56 04/09/19 09:56 04/09/19 09:56 04/09/19 09:56
--- NOTE | 2019-04-09 11:41 | P.PCN ---
Date of Procedure: 04/09/19 Description of Procedure: PREOPERATIVE DIAGNOSIS: Sigmoid diverticulosis History of large bowel obstruction Personal history of colon polyps POSTOPERATIVE DIAGNOSIS: Large bowel obstruction due to sigmoid stricture Severe sigmoid diverticulosis Internal hemorrhoids Ascending colon adenomas Transverse colon adenomas OPERATION: Colonoscopy to the ileocecal valve and appendiceal orifice. Colonoscopy with multiple hot snare polypectomies Colonoscopy with cold forceps biopsies Colonoscopy with injection of Mónica ink 3 m at sigmoid stricture SURGEON: Bonnie Padilla MD. ANESTHESIA: MAC. INDICATIONS: The patient is an 73-year-old male who presents with symptomatic sigmoid diverticulosis. He has history of incomplete colonoscopy Benefits and risks were described and informed consent was obtained. DESCRIPTION OF PROCEDURE: The patient had undergone Suprep. He had been brought into the operating room and laid in the left lateral decubitus position. After adequate intravenous sedation, the rectum was examined with 2% lidocaine jelly. The prostate fossa was unremarkable. No external hemorrhoids were encountered. The rectal tone was within normal limits. No lesions were palpated in the rectal vault. An Olympus colonoscope was advanced however exchanged for a pediatric colonoscope due to a tight sigmoid stricture. The sigmoid structure was between 20-30 cm from the anal verge. The pediatric colonoscope was advanced until the ileocecal valve and appendiceal orifice were clearly viewed. The prep was excellent. Sigmoid diverticulosis severe was encountered. Multiple colonic polyps were found and snare polypectomy. No evidence of focal colitis was found. At the sigmoid stricture, 3 mL Mónica ink was injected. Retroflexion of the scope demonstrated grade 2 internal hemorrhoids without active bleeding or inflammation. The colon was desufflated. The patient had tolerated the procedure well. Withdrawal time was over 6 minutes. FINDINGS: Aronchick preparation quality scale 1 (1-5) Internal hemorrhoids, grade 2 External hemorrhoids. No arteriovenous malformations. Sigmoid diverticulosis, severe with sigmoid stricture at 25 cm from the anal verge with injection of Mónica ink 3 mL Removal of 7 polyps: - Snare polypectomy at cecum, 5 mm tubulovillous adenoma polyp. - Snare polypectomy at ileocecal valve 2, 5 to 6 mm flat villous adenoma polyp. - Snare polypectomy at ascending colon, 5 mm flat villous adenoma polyp. - Cold forceps biopsy at hepatic flexure, 4 mm polyp. - Cold forceps biopsy at proximal transverse colon, 5 mm polyp. - Cold forceps biopsy at mid transverse colon, 4 mm polyp. No focal colitis. RECOMMENDATIONS: Given severity of tubular adenomas, recommend repeat colonoscopy 1 year, 2020
[2019-04-09] MEDS ORDERED: Antibiotics per Pharmacy 1 EACH MISC MISCELLANE PRN (11:42)
[2019-04-09] MEDS ORDERED: SODIUM CHLORIDE 0.9% 1,000 ML IV ONE ×3 (12:00→15:42)
[2019-04-09] MEDS ORDERED: MEPERIDINE 50 MG/ML SYRINGE IVP ONE (12:15)
[2019-04-09] MEDS: ONDANSETRON 4 MG/2 ML VIAL IVP ONE (12:45)
[2019-04-09] MEDS ORDERED: HYDROmorphone 1 MG/ML 1 ML SYRINGE IVP ONE (13:50)
[2019-04-09] MEDS: metroNIDAZOLE 500 MG TAB PO SCH ×3 (15:00→23:06)
[2019-04-09] MEDS: NEOMYCIN 500 MG TAB PO SCH ×3 (15:01→23:06)
[2019-04-09] MEDS: D5-0.45% NACL WITH KCL 20MEQ/L 1,000 ML IV SCH ×2 (15:01→23:06)
[2019-04-09 16:52] LABS: Basophils # (A) 0.1 k/uL (0-0.2); Basophils % (A) 1 %; Eosinophils # (A) 0.1 k/uL (0-0.7); Eosinophils % (A) 2 %; HCT 43.2 % (39.0-53.0); HGB 14.5 gm/dL (13.0-17.5); Lymphocytes # (A) 0.8 k/uL (1.0-4.8); Lymphocytes % (A) 12 %; MCH 33.1 pg (25.0-35.0); MCHC 33.5 g/dL (31.0-37.0); MCV 98.8 fL (80.0-100.0); Mean Platelet Volume 8.7; Monocytes # (A) 0.4 k/uL (0-1.0); Monocytes % (A) 5 %; Neutrophils # (A) 5.7 k/uL (1.3-7.7); Neutrophils % (A) 79 %; Platelet Count 160 k/uL (150-450); RBC 4.37 m/uL (4.30-5.90); RDW 14.2 % (11.5-15.5); WBC 7.2 k/uL (3.8-10.6)
[2019-04-09 16:54] LABS: ALT 29 U/L (4-49); AST 39 U/L (17-59); African American GFR (CKD) >90 (>60 ml/min/1.73 sqM); Albumin 3.6 g/dL (3.5-5.0); Alkaline Phosphatase 63 U/L (38-126); Anion Gap 5 mmol/L; Blood Urea Nitrogen 14 mg/dL (9-20); Calcium 8.7 mg/dL (8.4-10.2); Carbon Dioxide 29 mmol/L (22-30); Chloride 102 mmol/L (98-107); Glucose 111 mg/dL (74-99); Magnesium 1.8 mg/dL (1.6-2.3); Non-African American GFR(CKD) >90 (>60 ml/min/1.73 sqM); Phosphorus 3.2 mg/dL (2.5-4.5); Potassium 4.1 mmol/L (3.5-5.1); Sodium 136 mmol/L (137-145); Total Bilirubin 0.8 mg/dL (0.2-1.3)
[2019-04-09] MEDS: SUMAtriptan SUCCINATE 6 MG/0.5 ML VIAL SQ PRN (18:18)
[2019-04-09] MEDS: IPRATROPIUM-ALBUTEROL 3 ML NEB INHALATION SCH (20:51)
[2019-04-09] MEDS: SYMBICORT 160-4.5 MCG INHALER INHALATION SCH (20:57)
[2019-04-09] MEDS ORDERED: TEMAZEPAM 15 MG CAP PO ONE (21:00)
[2019-04-09] MEDS: HYDROmorphone 1 MG/ML 1 ML SYRINGE IVP PRN (23:14)
[2019-04-10] MEDS: LACTATED RINGERS 1,000 ML IV SCH ×2 (02:28→09:42)
[2019-04-10] MEDS: HYDROmorphone 1 MG/ML 1 ML SYRINGE IVP PRN ×2 (05:46→20:04)
[2019-04-10] MEDS: PANTOPRAZOLE 40 MG TABLET PO SCH (07:00)
[2019-04-10] MEDS ORDERED: GENTAMICIN 300 MG in SODIUM CHLORIDE 0.9% 100 ML IVPB ONE (08:00)
[2019-04-10] MEDS ORDERED: ALVIMOPAN 12 MG CAPSULE PO ONE (08:00)
[2019-04-10] MEDS ORDERED: MAGNESIUM SULFATE-D5W PMX 1 GM in DEXTROSE/WATER 1 100ML.BAG IVPB STA (08:00)
[2019-04-10] MEDS ORDERED: CLINDAMYCIN 900 MG in DEXTROSE 5% IN WATER 50 ML IVPB ONE ×2 (08:00)
[2019-04-10] MEDS: IPRATROPIUM-ALBUTEROL 3 ML NEB INHALATION SCH ×2 (08:11→21:50)
[2019-04-10] MEDS: SYMBICORT 160-4.5 MCG INHALER INHALATION SCH ×2 (08:11→21:50)
--- NOTE | 2019-04-10 08:15 | P.CONS ---
History of Present Illness - Reason for Consult Consult date: 04/10/19 - Chief Complaint Sigmoid stricture - History of Present Illness This is a 73-year-old white male with known history of COPD and chronic migraine headaches who is admitted for repair of sigmoid stricture that has he has been struggling with for the last several months. The patient seen postop day #1 with some mild nausea. He suspect is related to element of anesthesia. No voiding difficulties are noted. Review of Systems Constitutional: Denies chills, Denies fever Eyes: denies blurred vision, denies pain Ears, nose, mouth and throat: Denies headache, Denies sore throat Respiratory: Denies cough Gastrointestinal: Reports abdominal pain Musculoskeletal: Denies myalgias 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, R testicular cancer with orchiectomy/radiation, chronic back and cervical pain, frequent debilitating migraines, bilateral sciatica, upper GI bleeds, hiatal hernia, gastritis, Diego's palsy Last Myocardial Infarction Date:: 05/25/14 History of Any Multi-Drug Resistant Organisms: None Reported Past Surgical History: Adenoidectomy, Appendectomy, Back Surgery, Cholecystectomy, Heart Catheterization, Hernia Repair, Orthopedic Surgery, T onsillectomy Additional Past Surgical History / Comment(s): 08/03/15 EGD colonoscopy,l cardiac cath, several back sx including laminectomy, spinous process removed T11 and T12/cage and arturo, bilateral arthroscopic knee surgeries, left thumb surgeries with rt one having titanium joint, L rotator cuff repair, several nasal polypectomies, RFA cervical/back, R/L inguinal hernia repairs, rt orchiectomy; diaphragmatic hernia repair Past Anesthesia/Blood Transfusion Reactions: No Reported Reaction Past Psychological History: Depression Additional Psychological History / Comment(s): Patient resides with his spouse of 55 yrs. He has chronic pain and debilitating migraines. He has a cane and walker which he uses prn. He has falls. He drives some but spouse does most of the driving. Spouse works afternoons at [employer] in patient check in/previous MRI. She has a grandchild or cousin who can stay with pt when necessary. Smoking Status: Former smoker Past Alcohol Use History: None Reported Additional Past Alcohol Use History / Comment(s): Pt started smoking in 1959 and quit cigarettes in 2003, smoked 1 1/2ppd Past Drug Use History: None Reported - Past Family History Father Family Medical History: Cancer Additional Family Medical History / Comment(s): Father of stomach ca at the age of 65 yrs. Mother Family Medical History: No Reported History Additional Family Medical History / Comment(s): Mother of "old age". She was 83 yrs old Brother(s) Family Medical History: Diabetes Mellitus Additional Family Medical History / Comment(s): brain tumor Sister(s) Family Medical History: Diabetes Mellitus Additional Family Medical History / Comment(s): breast ca (sisters) Medications and Allergies Home Medications Medication Instructions Recorded Confirmed Type Omeprazole 40 mg PO QAM 08/17/18 04/09/19 History Fluticasone/Salmeterol [Advair 1 puff INHALATION RT-BID 01/15/19 04/09/19 Hi story 500-50 Diskus] Erenumab-Aooe [Aimovig 70 mg SQ Q28D 02/26/19 04/09/19 History Autoinjector] Ipratropium-Albuterol Nebulize 3 ml INHALATION RT-BID 02/26/19 04/09/19 History [Duoneb 0.5 mg-3 mg/3 ml Soln] Multivitamins, Thera [Multivitamin 1 each PO DAILY@1200 tab 03/04/19 04/09/19 Rx (formulary)] Allergies Allergy/AdvReac Type Severity Reaction Status Date / Time chocolate flavor Allergy TRIGGERS Verified 04/09/19 10:02 MIGRAINE Iodinated Contrast Media Allergy Anaphylaxis Verified 04/09/19 10:02 [Iodinated Contrast Media - IV Dye] iodine Allergy Anaphylaxis Verified 04/09/19 10:02 peanut Allergy TRIGGERS Verified 04/09/19 10:02 MIGRAINES Penicillins Allergy Anaphylaxis Verified 04/09/19 10:02 Sulfa (Sulfonamide Allergy Anaphylaxis Verified 04/09/19 10:02 Antibiotics) fentanyl AdvReac Severe SEVERE Verified 04/09/19 10:02 MIGRAINES adhesive AdvReac tears skin Verified 04/09/19 10:02 banana AdvReac HEADACHE Verified 04/09/19 10:02 gabapentin AdvReac Confusion Verified 04/09/19 10:02 tree nut [Nut] AdvReac HEADACHE Verified 04/09/19 10:02 yellow dye AdvReac HEADACHE Verified 04/09/19 10:02 OPIODS AdvReac Severe MIGRAINES Uncoded 04/09/19 10:02 Physical Exam Vitals: Vital Signs Temp Pulse Pulse Resp BP Pulse Ox 04/10/19 06:59 98.1 F 79 17 122/66 96 04/10/19 03:15 98.1 F 77 18 92/52 97 04/09/19 21:08 84 04/09/19 20:51 86 04/09/19 19:35 98.4 F 93 14 137/67 94 L 04/09/19 14:33 97.7 F 77 12 129/75 91 L 04/09/19 12:45 73 16 141/71 98 04/09/19 11:45 59 L 16 166/73 98 04/09/19 11:38 70 16 109/56 98 04/09/19 09:56 98.1 F 91 16 152/86 96 Intake and Output 04/09/19 04/10/19 04/10/19 22:59 06:59 14:59 Intake Total 300 Balance 300 Intake: Intake, IV Titration 300 Amount D5-0.45% NaCl with KCl 300 20Meq/l 1,000 ml @ 100 mls/hr IV .Q10H [facility] Rx#: [id number] Other: # Voids 1 - Constitutional General appearance: thin - EENT Eyes: EOMI - Neck Neck: no lymphadenopathy - Respiratory Respiratory: bilateral: CTA - Cardiovascular Rhythm: regular Heart sounds: normal: S1, S2 Abnormal Heart Sounds: no S3 Gallop - Gastrointestinal General gastrointestinal: decreased bowel sounds, soft, tenderness - Neurologic Neurologic: CNII-XII intact Results CBC & Chem 7: 04/09/19 16:15 04/09/19 16:15 Labs: Abnormal Lab Results - Last 24 Hours (Table) 04/09/19 04/09/19 Range/Units 16:15 16:15 Lymphocytes # 0.8 L (1.0-4.8) k/uL Sodium 136 L (137-145) mmol/L Creatinine 0.63 L (0.66-1.25) mg/dL Glucose 111 H (74-99) mg/dL Total Protein 6.0 L (6.3-8.2) g/dL Assessment and Plan (1) Adenoma of ascending colon Current Visit: Yes Status: Acute Code(s): D12.2 - BENIGN NEOPLASM OF CENDING COLON SNOMED Code(s): 161903992 (2) Adenoma of transverse colon Current Visit: Yes Status: Acute Code(s): D12.3 - BENIGN NEOPLASM OF TRANSVERSE COLON SNOMED Code(s): 898070164 (3) Stricture of sigmoid colon Current Visit: Yes Status: Acute Code(s): K56.699 - OTHER INTESTNL OBST UNSP TO PARTIAL VERSUS COMPLETE OBST SNOMED Code(s): 6664830 (4) Headache Current Visit: No Status: Acute Code(s): R51 - HEADACHE SNOMED Code(s): 60766998 (5) Hx of nicotine dependence Current Visit: No Status: Acute Code(s): Z87.891 - PERSONAL HISTORY OF NICOTINE DEPENDENCE SNOMED Code(s): 169355955 (6) Primary insomnia Current Visit: No Status: Acute Code(s): F51.01 - PRIMARY INSOMNIA SNOMED Code(s): 5111115 Plan: Postop day #1 for stricture repair. Check CBC and CMP in a.m. New pack DVT and GI prophylaxis per surgery. We'll continue follow through the weekend. Anticipate discharge in the next 3-4 days. Time with Patient: Greater than 30
[2019-04-10 08:26] LABS: HCT 44.9 % (39.0-53.0); HGB 14.6 gm/dL (13.0-17.5); MCH 32.7 pg (25.0-35.0); MCHC 32.5 g/dL (31.0-37.0); MCV 100.6 fL (80.0-100.0); Macrocytosis Slight; Mean Platelet Volume 8.1; Platelet Count 241 k/uL (150-450); RBC 4.47 m/uL (4.30-5.90); WBC 9.6 k/uL (3.8-10.6)
[2019-04-10 08:33] LABS: African American GFR (CKD) >90 (>60 ml/min/1.73 sqM); Anion Gap 6 mmol/L; Blood Urea Nitrogen 9 mg/dL (9-20); Calcium 8.6 mg/dL (8.4-10.2); Carbon Dioxide 30 mmol/L (22-30); Chloride 100 mmol/L (98-107); Glucose 108 mg/dL (74-99); Non-African American GFR(CKD) >90 (>60 ml/min/1.73 sqM); Potassium 4.1 mmol/L (3.5-5.1); Sodium 136 mmol/L (137-145)
[2019-04-10] MEDS ORDERED: HEPARIN SODIUM,PORCINE 5,000 UNIT/ML 1 ML VIAL SQ ONE (08:40)
[2019-04-10] MEDS ORDERED: MELOXICAM 7.5 MG TAB PO ONE (08:40)
[2019-04-10] MEDS ORDERED: ACETAMINOPHEN TAB 500 MG TAB PO ONE (08:40)
[2019-04-10] MEDS ORDERED: IV FLUID CONTINUATION 1,000 ML IV ONE (09:00)
[2019-04-10] MEDS ORDERED: METOCLOPRAMIDE 5 MG/ML 2 ML VIAL IVP ONE (09:18)
[2019-04-10] MEDS: ONDANSETRON 4 MG/2 ML VIAL IVP ONE (09:18)
--- NOTE | 2019-04-10 09:46 | P.ANPRN ---
Procedure Note - Anesthesia - Nerve Block Performed Bilateral Transversus Abdominis Single Time Out Performed: Yes Date of Procedure: 04/10/19 Procedure Start Time: 09:32 Procedure Stop Time: 09:36 Location of Patient: PreOp Indication: Acute Post-Operative Pain, Dx/Pain Location, Requested by Surgeon Sedation Type: Sedate with meaningful contact maintained Preparation: Sterile Prep Position: Supine Catheter: None Needle Types: Pajunk Needle Gauge: 21 Ultrasound used to visualize needle placement: Yes Ultrasound used to observe medication spread: Yes Injectate: Other (see comment) (10ml 0.5% Ropivacaine + 2% Lidocaine with 1:200,000 epi) Blood Aspirated: No Pain Paresthesia on Injection Noted: No Resistance on Injection: Normal Image Stored and Saved: Yes Events: Uneventful and Well Tolerated
[2019-04-10] MEDS ORDERED: PHENYLEPHRINE-0.9% NACL SYG 1 MG/10 ML SYRINGE ONE (09:50)
[2019-04-10] MEDS ORDERED: ROCURONIUM BROMIDE 10 MG/ML 5 ML VIAL IV ONE (09:50)
[2019-04-10] MEDS ORDERED: GLYCOPYRROLATE 0.2 MG/ML 2 ML VIAL ONE (09:50)
[2019-04-10] MEDS ORDERED: LIDOCAINE 1% INJ 10MG/ML (20 ML MDV) ONE (09:50)
[2019-04-10] MEDS ORDERED: SUCCINYLCHOLINE CHLORIDE 100 MG/5 ML SYR IV ONE (09:50)
[2019-04-10] MEDS ORDERED: NEOSTIGMINE 1 MG/ML 10 ML VIAL ONE (09:50)
[2019-04-10] MEDS ORDERED: PROPOFOL 10 MG/ML 20 ML VIAL IV ONE (09:50)
[2019-04-10] MEDS ORDERED: LIDOCAINE 2%-EPI 1:100,000 20 ML VIAL ONE (09:50)
[2019-04-10] MEDS ORDERED: ROPIVACAINE 5 MG/ML 30 ML VIAL ONE (09:50)
[2019-04-10] MEDS ORDERED: fentaNYL (PF) 50 MCG/ML 2 ML AMP ONE (09:50)
[2019-04-10] MEDS ORDERED: LACTATED RINGERS 1,000 ML IV ONE ×3 (09:55→13:39)
[2019-04-10] MEDS ORDERED: LIDOCAINE 1%-EPI 1:100,000 20 ML VIAL SQ ONE (10:57)
[2019-04-10] MEDS ORDERED: SODIUM CHLORIDE 0.9% 1,000 ML IV ONE (15:40)
[2019-04-10] MEDS ORDERED: HYDROmorphone 0.5 MG/0.5 ML SYRINGE IVP ONE (15:56)
--- NOTE | 2019-04-10 16:11 | P.OP ---
Date of Procedure: 04/10/19 Description of Procedure: SURGEON: MILANA FAM MD PREOPERATIVE DIAGNOSES: 1. 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 Intermittent large bowel obstruction due to sigmoid stricture 3. History of chronic constipation 4. Chronic obstructive pulmonary disease 5. Gastroesophageal reflux disease 6. Depressive disorder 7. History of bladder cancer 8. History of testicular cancer 9. History of right diaphragmatic hiatal hernia repair 10. 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 Intermittent large bowel obstruction due to sigmoid stricture 3. History of chronic constipation 4. Chronic obstructive pulmonary disease 5. Gastroesophageal reflux disease 6. Depressive disorder 7. History of bladder cancer 8. History of testicular cancer 9. History of right diaphragmatic hiatal hernia repair 10. 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 Robotic-assisted daVinci Xi laparoscopic sigmoid colectomy. 2. Robotic-assisted daVinci Xi laparoscopic mobilization of splenic flexure 3. Intraoperative flexible sigmoidoscopy using colonoscope Anesthesia: GETA local ESTIMATED BLOOD LOSS: 10 mL SPECIMENS REMOVED: Sigmoid colon. COMPLICATIONS: None. Pathology: other (Sigmoid colectomy) Condition: stable Disposition: floor FINDINGS: 1. Previously tattooed sigmoid stricture identified and resected 2. Linear isoperistaltic colo-colon anastomosis performed using 60 mm green staple loads 3. Flexible sigmoidoscopy demonstrates viable including intact anastomosis without leak 4. Console time 198 minutes INDICATIONS: The patient is a 73-year-old male with history of diverticulosis including chronic constipation. Barium enema including colonoscopy confirmed s igmoid stricture previously tattooed. Surgical resection with colectomy described. Benefits and risks, including infection, bowel injury, ureteral injury, colostomy creation and possibility for additional surgery was discussed at length. Informed consent was obtained. All questions of the patient and family were answered. DESCRIPTION: Earlier the patient had undergone a bowel prep using the enhanced colon recovery program. The patient was transferred to the operating room and placed supine. A Wilson catheter was placed. The abdomen was then prepped and draped in standard sterile fashion as Ioban was placed along the abdomen to minimize any contamination of skin floor. After a timeout protocol was performed, attention was then brought to the left upper quadrant whereby a 0 degree 5 mm laparoscopic trocar entry was performed. The abdominal cavity was entered and insufflated to 15 mmHg pressure, which he tolerated well. Next a robotic 8-mm trocar was placed along the epigastrium 20 cm superior from the pelvis. A 12 mm port was placed along the right upper quadrant. Ports were placed 10 cm apart from each other including 15-20 cm away from the target anatomy of the left pelvis. The 5-mm port was exchanged for an 8 mm robotic port. A 12 mm was placed along the left lateral abdominal wall. The 8-mm port was arranged along the right lateral abdominal wall. The patient was then placed in Trendelenburg position, at least 16. The robotic da Emily XI system was primed. The robot was docked from the right side of the patient. Using atraumatic graspers and vessel sealer, the robotic system was docked and primed as described. Instruments were interchanged by the press assistant and feeder including scissors, needle ambulance driver, robotic stapler and vessel sealer. The robot stapler was prepared along the right lateral abdominal wall. Next, attention was brought to identify the sigmoid colon. The descending colon and sigmoid colon was mobilized along the white line of Toldt towards the pelvis. To allow adequate length, mobilization of splenic flexure was performed after double docking the robot towards the upper abdomen for over one hour. Once adequate length of the splenic flexure was obtained, the robot was re-docked for the lower abdomen/pelvis. A stay suture using 3-0 silk was placed along the anterior serosa of the descending colon including along the sigmoid colon. The sigmoid mesentery was mobilized using a vessel sealer whereby the distal sigmoid colon was marked and tagged. Using multiple fires of the robot stapler 60 mm green and blue loads, the distal sigmoid colon was divided. Mobilization of the colon was performed to the pelvic brim along the sacral promontory. The mesentery of the sigmoid colon was mobilized towards the descending colon using a vessel sealer. Next, the descending colon was divided using 2 fires of the robotic stapler 60 mm green loads. The rest of the sigmoid colon mesentery was mobilized using vessel sealer. Additionally, the sigmoid colon was mobilized onto the colon to minimize injury to the ureters. The proximal and distal colon was brought in an isoperistaltic fashion after placing interrupted sutures along the proposed freddie-lumen using 3-0 silk. A colotomy was placed along the descending colon including distal colon using hook cautery. Next a freddie-lumen was created using 60 mm green staple load. The colotomy was closed after closing the defect using 3-0 silk in a horizontal mattress suture. The colotomy was sealed using 60 mm green kellen 2. All needles were removed from the abdominal cavity. I went to the foot of the bed to perform a sigmoidoscopy. A flexible colonoscope was inserted along the rectum and advanced to the anastomosis and proximally. No evidence of leaks were identifiedafter normal saline solution over the anastomosis with the assistance of the dental assistant medical assistant. The anastomosis was completely hemostatic. The robot was undocked. Via the left upper quadrant stapler site, the resected colon was brought out through the 12 mm trocar Catch bag. The fascial defect was oversewn using 0 Vicryl and a John Randle. Next all pneumoperitoneum including instruments were evacuated from the abdominal cavity. All incisions were copiously irrigated using dilute normal saline and hydrogen peroxide mixture. The trocar sites were reapproximated using 4-0 Monocryl in an interrupted subcuticular fashion. Local anesthetic was infiltrated to all wounds for postop analgesia. An Optifoam surgical dressing was placed over the colon extraction site. Exofin skin glue was applied to the rest of the skin incisions. The patient was extubated successfully. The patient was transferred to the postanesthesia care unit in stable condition.
[2019-04-10] MEDS: metroNIDAZOLE-NS PMX 500 MG in SALINE 1 100ML.BAG IVPB SCH (16:55)
[2019-04-10] MEDS: D5-0.45% NACL WITH KCL 20MEQ/L 1,000 ML IV SCH ×2 (17:25→21:19)
[2019-04-10] MEDS ORDERED: MAGNESIUM SULFATE-D5W PMX 1 GM in DEXTROSE/WATER 1 100ML.BAG IVPB ONE (18:00)
[2019-04-10] MEDS: LEVOFLOXACIN 500MG-D5W PMX 500 MG in DEXTROSE/WATER 1 100ML.BAG IVPB SCH (18:08)
[2019-04-10] MEDS: HEPARIN SODIUM,PORCINE 5,000 UNIT/ML 1 ML VIAL SQ SCH (20:10)
[2019-04-10] MEDS: KETOROLAC 30 MG/ML 1 ML VIAL IVP SCH (22:06)
[2019-04-10] MEDS: ACETAMINOPHEN TAB 500 MG TAB PO SCH (22:06)
[2019-04-11] MEDS: metroNIDAZOLE-NS PMX 500 MG in SALINE 1 100ML.BAG IVPB SCH ×3 (00:02→12:00)
[2019-04-11] MEDS: HYDROmorphone 1 MG/ML 1 ML SYRINGE IVP PRN ×3 (00:02→09:31)
[2019-04-11] MEDS: ACETAMINOPHEN TAB 500 MG TAB PO SCH ×4 (00:07→17:27)
[2019-04-11] MEDS: KETOROLAC 30 MG/ML 1 ML VIAL IVP SCH ×4 (00:08→17:27)
[2019-04-11] MEDS: D5-0.45% NACL WITH KCL 20MEQ/L 1,000 ML IV SCH ×2 (05:13→17:27)
[2019-04-11] MEDS: ALVIMOPAN 12 MG CAPSULE PO SCH ×2 (05:13→21:20)
[2019-04-11] MEDS: PANTOPRAZOLE 40 MG TABLET PO SCH (05:13)
[2019-04-11] MEDS: TAMSULOSIN 0.4 MG CAP.ER.24H PO SCH (05:13)
[2019-04-11] MEDS: HEPARIN SODIUM,PORCINE 5,000 UNIT/ML 1 ML VIAL SQ SCH ×2 (05:14→21:20)
[2019-04-11] MEDS: LACTATED RINGERS 1,000 ML IV SCH (05:23)
[2019-04-11 07:12] LABS: Basophils % (A) 0 %; Eosinophils % (A) 0 %; HCT 39.5 % (39.0-53.0); Lymphocytes # (A) 0.5 k/uL (1.0-4.8); Lymphocytes % (A) 5 %; MCH 32.6 pg (25.0-35.0); MCHC 32.9 g/dL (31.0-37.0); Mean Platelet Volume 8.2; Monocytes # (A) 0.6 k/uL (0-1.0); Monocytes % (A) 6 %; Neutrophils # (A) 8.9 k/uL (1.3-7.7); Neutrophils % (A) 86 %; Platelet Count 184 k/uL (150-450); RBC 3.99 m/uL (4.30-5.90); RDW 13.8 % (11.5-15.5); WBC 10.4 k/uL (3.8-10.6)
[2019-04-11] MEDS: LEVOFLOXACIN 500MG-D5W PMX 500 MG in DEXTROSE/WATER 1 100ML.BAG IVPB SCH (07:16)
[2019-04-11] MEDS: SYMBICORT 160-4.5 MCG INHALER INHALATION SCH ×2 (07:20→22:11)
[2019-04-11] MEDS: IPRATROPIUM-ALBUTEROL 3 ML NEB INHALATION SCH ×3 (07:20→22:12)
[2019-04-11 07:27] LABS: African American GFR (CKD) >90 (>60 ml/min/1.73 sqM); Anion Gap 5 mmol/L; Blood Urea Nitrogen 6 mg/dL (9-20); Calcium 7.7 mg/dL (8.4-10.2); Carbon Dioxide 25 mmol/L (22-30); Chloride 101 mmol/L (98-107); Glucose 137 mg/dL (74-99); Non-African American GFR(CKD) >90 (>60 ml/min/1.73 sqM); Potassium 4.7 mmol/L (3.5-5.1); Sodium 131 mmol/L (137-145)
[2019-04-11] MEDS: ONDANSETRON 4 MG/2 ML VIAL IVP PRN (07:32)
[2019-04-11] MEDS: SUMAtriptan SUCCINATE 6 MG/0.5 ML VIAL SQ PRN (12:00)
[2019-04-11] MEDS ORDERED: SUMAtriptan SUCCINATE 6 MG/0.5 ML VIAL SQ PRN (18:01)
--- NOTE | 2019-04-11 18:05 | P.PN ---
Subjective Progress Note Date: 04/11/19 CHIEF COMPLAINT: Sigmoid stricture due to sigmoid diverticulitis HISTORY OF PRESENT ILLNESS: The patient is a 73-year-old male postop day 1 status post sigmoid resection for sigmoid stricture, 04/10/2019. He denies any abdominal pain. He complains of migraines. He is tolerating clears. He is eager to ambulate. ROS: No reports of nausea and vomiting. No bowel movements. No fevers or chills. No new chest pain. No productive sputum PHYSICAL EXAM: VITAL SIGNS: Reviewed CONSTITUTIONAL: Well developed and in no acute distress. EYES: Conjuctivae without sclera icterus. Extraocular movements grossly intact. HEAD, EARS, NOSE, THROAT: Moist buccal mucosa. Head is atraumatic, normocephalic. Hears conversational speech. No nasal drainage. RESPIRATORY: Non-labored respirations and equal bilateral excursions. CARDIOVASCULAR: Palpable 2+ radial pulses. Regular rate. Regular rhythm. ABDOMEN: Incisions clean dry and intact. Soft. No peritonitis. MUSCULOSKELETAL: No gross deformity of the lower extremities noted. No clubbing. No cyanosis. SKIN: Good skin turgor. Well perfused. NEUROLOGIC: Cranial nerves I through XII grossly intact. No focal or lateralizing signs. PSYCH: Appropriate affect. Alert and oriented to person, place and time. CLINICAL LABS: White blood cell count normal at 10.4 MISCELLANEOUS: Intra-op films from scope reviewed ASSESSMENT: 1. Sigmoid stricture due to sigmoid diverticulitis 2. Status post sigmoid resection 3. Chronic migraines PLAN: 1. Ambulate 2. Discharge pending flatus or bowel movement 3. Patient is high risk for re-admission due to multiple medical comorbidities 4. Imitrex as needed for chronic migraines Objective - Vital Signs Vital signs: Vital Signs Temp 97.9 F 04/11/19 14:51 Pulse 83 04/11/19 14:51 Resp 17 04/11/19 14:51 BP 117/69 04/11/19 14:51 Pulse Ox 94 L 04/11/19 05:40 Intake & Output 04/10/19 04/11/19 04/11/19 18:59 06:59 18:59 Intake Total 3563.5 200 Output Total 395 600 Balance 3168.5 -400 Intake: IV 3563.5 Oral 200 Output: Urine 385 600 Estimated Blood Loss 10 Other: Voiding Method Indwelling Catheter Indwelling Catheter Indwelling Catheter - Labs CBC & Chem 7: 04/12/19 06:11 04/11/19 07:00 Labs: Abnormal Lab Results - Last 24 Hours (Table) 04/11/19 04/11/19 Range/Units 07:00 07:00 RBC 3.99 L (4.30-5.90) m/uL Neutrophils # 8.9 H (1.3-7.7) k/uL Lymphocytes # 0.5 L (1.0-4.8) k/uL Sodium 131 L (137-145) mmol/L BUN 6 L (9-20) mg/dL Creatinine 0.53 L (0.66-1.25) mg/dL Glucose 137 H (74-99) mg/dL Calcium 7.7 L (8.4-10.2) mg/dL Assessment and Plan (1) S/P colon resection Current Visit: Yes Status: Acute Code(s): Z90.49 - ACQUIRED ABSENCE OF OTHER SPECIFIED PARTS OF DIGESTIVE TRACT SNOMED Code(s): 262077792 (2) Diverticulosis Current Visit: Yes Status: Acute Code(s): K57.90 - DVRTCLOS OF INTEST, PART UNSP, W/O PERF OR ABSCESS W/O BLEED SNOMED Code(s): 325712358 (3) Stricture of sigmoid colon Current Visit: Yes Status: Acute Code(s): K56.699 - OTHER INTESTNL OBST UNSP TO PARTIAL VERSUS COMPLETE OBST SNOMED Code(s): 8803230 (4) COPD (chronic obstructive pulmonary disease) Current Visit: No Status: Acute Code(s): J44.9 - CHRONIC OBSTRUCTIVE PULMONARY DISEASE, UNSPECIFIED SNOMED Code(s): 44123916 (5) Chronic constipation Current Visit: No Status: Acute Code(s): K59.09 - OTHER CONSTIPATION SNOMED Code(s): 621984660 (6) High risk for readmission Current Visit: No Status: Acute Code(s): Z91.89 - OTH PERSONAL RISK FACTORS, NOT ELSEWHERE CLASSIFIED SNOMED Code(s): 936253304 (7) Intractable migraine Current Visit: No Status: Acute Code(s): G43.919 - MIGRAINE, UNSP, INTRACTABLE, WITHOUT STATUS MIGRAINOSUS SNOMED Code(s): 708385164
[2019-04-11] MEDS ORDERED: KETOROLAC 30 MG/ML 1 ML VIAL IVP SCH (21:49)
[2019-04-12] MEDS: ACETAMINOPHEN TAB 500 MG TAB PO SCH ×4 (00:57→19:18)
[2019-04-12] MEDS: KETOROLAC 30 MG/ML 1 ML VIAL IVP SCH ×5 (00:59→19:18)
[2019-04-12] MEDS: D5-0.45% NACL WITH KCL 20MEQ/L 1,000 ML IV SCH ×3 (05:03→17:01)
[2019-04-12] MEDS: LACTATED RINGERS 1,000 ML IV SCH (05:34)
[2019-04-12 06:59] LABS: Basophils % (A) 1 %; Eosinophils # (A) 0.3 k/uL (0-0.7); Eosinophils % (A) 5 %; HCT 36.2 % (39.0-53.0); HGB 12.1 gm/dL (13.0-17.5); Lymphocytes # (A) 0.5 k/uL (1.0-4.8); Lymphocytes % (A) 8 %; MCH 32.8 pg (25.0-35.0); MCHC 33.4 g/dL (31.0-37.0); MCV 98.2 fL (80.0-100.0); Mean Platelet Volume 8.1; Monocytes # (A) 0.4 k/uL (0-1.0); Monocytes % (A) 7 %; Neutrophils % (A) 76 %; Platelet Count 182 k/uL (150-450); RBC 3.69 m/uL (4.30-5.90); RDW 13.8 % (11.5-15.5); WBC 6.5 k/uL (3.8-10.6)
[2019-04-12] MEDS: HEPARIN SODIUM,PORCINE 5,000 UNIT/ML 1 ML VIAL SQ SCH ×2 (07:48→22:01)
[2019-04-12] MEDS: LEVOFLOXACIN 500MG-D5W PMX 500 MG in DEXTROSE/WATER 1 100ML.BAG IVPB SCH (07:48)
[2019-04-12] MEDS: TAMSULOSIN 0.4 MG CAP.ER.24H PO SCH (07:49)
[2019-04-12] MEDS: ALVIMOPAN 12 MG CAPSULE PO SCH ×2 (07:50→22:01)
[2019-04-12] MEDS: PANTOPRAZOLE 40 MG TABLET PO SCH (07:50)
[2019-04-12] MEDS: SYMBICORT 160-4.5 MCG INHALER INHALATION SCH ×2 (08:11→20:00)
[2019-04-12] MEDS: IPRATROPIUM-ALBUTEROL 3 ML NEB INHALATION SCH ×2 (08:11→20:01)
--- NOTE | 2019-04-12 12:54 | P.PN ---
Subjective Progress Note Date: 04/12/19 CHIEF COMPLAINT: Sigmoid stricture due to sigmoid diverticulitis HISTORY OF PRESENT ILLNESS: The patient is a 73-year-old male postop day 2 status post sigmoid resection for sigmoid stricture, 04/10/2019. He is passing flatus! He has more incisional pain as he is more active today. His abdominal binder is very loose. No bowel movements. He is tolerating liquid diet. ROS: No reports of nausea and vomiting. No bowel movements. No fevers or chills. No new chest pain. No productive sputum PHYSICAL EXAM: VITAL SIGNS: Reviewed CONSTITUTIONAL: Well developed and in no acute distress. EYES: Conjuctivae without sclera icterus. Extraocular movements grossly intact. HEAD, EARS, NOSE, THROAT: Moist buccal mucosa. Head is atraumatic, normocephalic. Hears conversational speech. No nasal drainage. RESPIRATORY: Non-labored respirations and equal bilateral excursions. CARDIOVASCULAR: Palpable 2+ radial pulses. Regular rate. Regular rhythm. ABDOMEN: Incisions clean dry and intact. Soft. No peritonitis. Abdominal binder re-adjusted. MUSCULOSKELETAL: No gross deformity of the lower extremities noted. No clubbing. No cyanosis. SKIN: Good skin turgor. Well perfused. NEUROLOGIC: Cranial nerves I through XII grossly intact. No focal or lateralizing signs. PSYCH: Appropriate affect. Alert and oriented to person, place and time. CLINICAL LABS: White blood cell count normal at 6.5 ASSESSMENT: 1. Sigmoid stricture due to sigmoid diverticulitis 2. Status post sigmoid resection 3. Chronic migraines PLAN: 1. Diet is advanced 2. He is awaiting spontaneous void following teague catheter removal 3. Discharge in 24 hrs pending void and tolerating diet Objective - Vital Signs Vital signs: Vital Signs Temp 98.4 F 04/12/19 07:00 Pulse 88 04/12/19 08:23 Resp 17 04/12/19 07:00 BP 154/78 04/12/19 07:00 Pulse Ox 95 04/12/19 07:00 Intake & Output 04/11/19 04/12/19 04/12/19 18:59 06:59 18:59 Output Total 400 Balance -400 Output: Urine 400 Other: Voiding Method Indwelling Catheter - Labs CBC & Chem 7: 04/12/19 06:11 04/11/19 07:00 Labs: Abnormal Lab Results - Last 24 Hours (Table) 04/12/19 Range/Units 06:11 RBC 3.69 L (4.30-5.90) m/uL Hgb 12.1 L (13.0-17.5) gm/dL Hct 36.2 L (39.0-53.0) % Lymphocytes # 0.5 L (1.0-4.8) k/uL Assessment and Plan (1) S/P colon resection Current Visit: Yes Status: Acute Code(s): Z90.49 - ACQUIRED ABSENCE OF OTHER SPECIFIED PARTS OF DIGESTIVE TRACT SNOMED Code(s): 655152978 (2) Diverticulosis Current Visit: Yes Status: Acute Code(s): K57.90 - DVRTCLOS OF INTEST, PART UNSP, W/O PERF OR ABSCESS W/O BLEED SNOMED Code(s): 849574383 (3) Stricture of sigmoid colon Current Visit: Yes Status: Acute Code(s): K56.699 - OTHER INTESTNL OBST UNSP TO PARTIAL VERSUS COMPLETE OBST SNOMED Code(s): 5592859 (4) COPD (chronic obstructive pulmonary disease) Current Visit: No Status: Acute Code(s): J44.9 - CHRONIC OBSTRUCTIVE PULMONARY DISEASE, UNSPECIFIED SNOMED Code(s): 11126243 (5) Chronic constipation Current Visit: No Status: Acute Code(s): K59.09 - OTHER CONSTIPATION SNOMED Code(s): 956114385 (6) High risk for readmission Current Visit: No Status: Acute Code(s): Z91.89 - OTH PERSONAL RISK FACTORS, NOT ELSEWHERE CLASSIFIED SNOMED Code(s): 130559757 (7) Intractable migraine Current Visit: No Status: Acute Code(s): G43.919 - MIGRAINE, UNSP, INTRACTABLE, WITHOUT STATUS MIGRAINOSUS SNOMED Code(s): 853355253
[2019-04-12] MEDS: SIMETHICONE 40 MG/0.6 ML DROPS 2,000 MG/30 ML BOTTLE PO SCH ×2 (17:01→22:08)
[2019-04-12] MEDS: DOCUSATE 100 MG CAP PO SCH (22:02)
[2019-04-12] MEDS: ONDANSETRON 4 MG/2 ML VIAL IVP PRN (22:13)
[2019-04-12] MEDS: HYDROmorphone 1 MG/ML 1 ML SYRINGE IVP PRN (22:23)
[2019-04-13] MEDS: D5-0.45% NACL WITH KCL 20MEQ/L 1,000 ML IV SCH (03:23)
[2019-04-13] MEDS: KETOROLAC 30 MG/ML 1 ML VIAL IVP SCH ×2 (03:27→09:04)
[2019-04-13] MEDS: ACETAMINOPHEN TAB 500 MG TAB PO SCH ×2 (03:27→09:05)
[2019-04-13] MEDS: IPRATROPIUM-ALBUTEROL 3 ML NEB INHALATION SCH (08:07)
[2019-04-13] MEDS: SYMBICORT 160-4.5 MCG INHALER INHALATION SCH (08:11)
[2019-04-13 08:14] VITALS: BP 153/83; RESP 17; TEMP 97.8
[2019-04-13 08:19] VITALS: PULSE 76
[2019-04-13] MEDS: LACTATED RINGERS 1,000 ML IV SCH (09:05)
[2019-04-13] MEDS: HEPARIN SODIUM,PORCINE 5,000 UNIT/ML 1 ML VIAL SQ SCH (09:05)
[2019-04-13] MEDS: PANTOPRAZOLE 40 MG TABLET PO SCH (09:05)
[2019-04-13] MEDS: DOCUSATE 100 MG CAP PO SCH (09:05)
[2019-04-13] MEDS: ALVIMOPAN 12 MG CAPSULE PO SCH (09:05)
[2019-04-13] MEDS: TAMSULOSIN 0.4 MG CAP.ER.24H PO SCH (09:05)
[2019-04-13] MEDS: LEVOFLOXACIN 500MG-D5W PMX 500 MG in DEXTROSE/WATER 1 100ML.BAG IVPB SCH (09:07)
[2019-04-13] MEDS: SIMETHICONE 40 MG/0.6 ML DROPS 2,000 MG/30 ML BOTTLE PO SCH (10:39)
--- NOTE | 2019-04-13 10:56 | P.DS ---
<Hyun Smith - Last Filed: 04/13/19 10:54> Providers Expected date of discharge: 04/13/19 Hospital Course: 73-year-old male who underwent robotic-assisted da Emily laparoscopic sigmoid colectomy and mobilization of splenic flexure on 04/10/[address] Padilla. Patient is doing well postoperatively without any immediate complications. He is tolerating diet. He denies nausea or vomiting. He is passing flatus. Pain is controlled on oral medications. He is stable for discharge home today. Please see EMR for further hospital course details. Discharge Diagnosis 1. 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 Intermittent large bowel obstruction due to sigmoid stricture 3. History of chronic constipation 4. Chronic obstructive pulmonary disease 5. Gastroesophageal reflux disease 6. Depressive disorder 7. History of bladder cancer 8. History of testicular cancer 9. History of right diaphragmatic hiatal hernia repair 10. 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 Degenerative joint disease lower back Nurse practitioner note has been reviewed by physician. Signing provider agrees with the documented findings, assessment, and plan of care. Patient Condition at Discharge: Stable Plan - Discharge Summary Discharge Rx Participant: Yes New Discharge Prescriptions: New Ibuprofen [Motrin] 600 mg PO Q8HR PRN #30 tab PRN Reason: Pain Continue Omeprazole 40 mg PO QAM Fluticasone/Salmeterol [Advair 500-50 Diskus] 1 puff INHALATION RT-BID Ipratropium-Albuterol Nebulize [Duoneb 0.5 mg-3 mg/3 ml Soln] 3 ml INHALATION RT-BID Erenumab-Aooe [Aimovig Autoinjector] 70 mg SQ Q28D Multivitamins, Thera [Multivitamin (formulary)] 1 each PO DAILY@1200 tab Discharge Medication List Omeprazole 40 mg PO QAM 08/17/18 [History] Fluticasone/Salmeterol [Advair 500-50 Diskus] 1 puff INHALATION RT-BID 01/15/19 [History] Erenumab-Aooe [Aimovig Autoinjector] 70 mg SQ Q28D 02/26/19 [History] Ipratropium-Albuterol Nebulize [Duoneb 0.5 mg-3 mg/3 ml Soln] 3 ml INHALATION RT-BID 02/26/19 [History] Multivitamins, Thera [Multivitamin (formulary)] 1 each PO DAILY@1200 tab 03/04/19 [Rx] Ibuprofen [Motrin] 600 mg PO Q8HR PRN #30 tab 04/13/19 [Rx] Follow up Appointment(s)/Referral(s): Bonnie Padilla MD [STAFF PHYSICIAN] - 04/21/19 8:40 am Patient Instructions/Handouts: Colectomy (DC) Activity/Diet/Wound Care/Special Instructions: Motrin as needed for pain Continue abdominal binder for comfort No lifting over 4 pounds You may shower. No soaking or tub baths Very light activity until you are reevaluated at your follow up appointment with your surgeon Discharge Disposition: HOME SELF-CARE <oBnnie Padilla - Last Filed: 04/13/19 20:08> Providers Date of admission: 04/10/19 15:40 Attending physician: Bonnie Padilla Primary care physician: Lul Garcia - Discharge Diagnosis(es) (1) S/P colon resection Status: Acute (2) Diverticulosis Status: Acute (3) Stricture of sigmoid colon Status: Acute (4) COPD (chronic obstructive pulmonary disease) Status: Acute (5) Chronic constipation Status: Acute (6) High risk for readmission Status: Acute (7) Intractable migraine Status: Acute
--- NOTE | 2019-04-13 20:15 | P.PN ---
Subjective Progress Note Date: 04/13/19 Principal diagnosis: Colonic constriction This is a continue progress note on a 73-year-old white male with known history of COPD and migraine headaches who is postop day #4 for colonic Restriction repair. The patient is doing quite well and tolerating diet. No sniffing nausea, vomiting or diarrhea. The patient is anticipating discharge later today. Objective - Vital Signs Vital signs: Vital Signs Temp 97.8 F 04/13/19 07:00 Pulse 76 04/13/19 08:19 Resp 17 04/13/19 07:00 BP 153/83 04/13/19 07:00 Pulse Ox 90 L 04/13/19 07:00 Intake & Output 04/13/19 04/13/19 04/14/19 06:59 18:59 06:59 Other: Voiding Method Toilet Urinal - Constitutional General appearance: Present: thin - EENT Eyes: Absent: abnormal pupil - Neck Neck: Absent: lymphadenopathy - Respiratory Respiratory: bilateral: diminished - Cardiovascular Rhythm: regular Heart sounds: normal: S1, S2 Abnormal Heart Sounds: Absent: S3 Gallop - Gastrointestinal General gastrointestinal: Present: soft. Absent: tenderness - Integumentary Integumentary: Present: normal. Absent: rash - Psychiatric Psychiatric: Present: A&O x's 3. Absent: appropriate affect - Labs CBC & Chem 7: 04/12/19 06:11 04/11/19 07:00 Assessment and Plan (1) Adenoma of ascending colon Status: Acute Code(s): D12.2 - BENIGN NEOPLASM OF ASCENDING COLON SNOMED Code(s): 396865894 (2) Adenoma of transverse colon Status: Acute Code(s): D12.3 - BENIGN NEOPLASM OF TRANSVERSE COLON SNOMED Code(s): 944754971 (3) Stricture of sigmoid colon Status: Acute Code(s): K56.699 - OTHER INTESTNL OBST UNSP TO PARTIAL VERSUS COMPLETE OBST SNOMED Code(s): 5716904 (4) Headache Status: Acute Code(s): R51 - HEADACHE SNOMED Code(s): 18080457 (5) Hx of nicotine dependence Status: Acute Code(s): Z87.891 - PERSONAL HISTORY OF NICOTINE DEPENDENCE SNO MED Code(s): 264754297 (6) Primary insomnia Status: Acute Code(s): F51.01 - PRIMARY INSOMNIA SNOMED Code(s): 2311950 Plan: Postop day #4 For colonic restriction repair. The patient is tolerating diet and passing flatus. Anticipate discharge once cleared by surgery later today.
== END 2019-04-13 12:15 | disposition home or self-care (01) | DRG 330 ==
LOC: ORWHC2ENDO 09:17 → 4SSUR 13:21 → ORWHC2ENDO 04-10 17:35
PROVIDERS: ADMIT Surgery Plastic and Reconstructive Surgery; ATTEND Surgery Plastic and Reconstructive Surgery
PROC: 0DBH8ZX Excision of Cecum, Via Natural or Artificial Opening Endoscopic, Diagnostic (ICD-10-PCS; 2019-04-09 10:10)
PROC: 0DBL8ZX Excision of Transverse Colon, Via Natural or Artificial Opening Endoscopic, Diagnostic (ICD-10-PCS; 2019-04-09 10:10)
PROC: 0DBC8ZX Excision of Ileocecal Valve, Via Natural or Artificial Opening Endoscopic, Diagnostic (ICD-10-PCS; 2019-04-09 10:10)
PROC: 0DBK8ZX Excision of Ascending Colon, Via Natural or Artificial Opening Endoscopic, Diagnostic (ICD-10-PCS; 2019-04-09 10:10)
PROC: 8E0W4CZ Robotic Assisted Procedure of Trunk Region, Percutaneous Endoscopic Approach (ICD-10-PCS; principal; 2019-04-10 09:40)
PROC: 0DTN4ZZ Resection of Sigmoid Colon, Percutaneous Endoscopic Approach (ICD-10-PCS; principal; 2019-04-10 09:40)
DX: K57.32 Diverticulitis of large intestine without perforation or abscess without bleeding (principal); K56.699 Other intestinal obstruction unspecified as to partial versus complete obstruction; D12.2 Benign neoplasm of ascending colon; D12.3 Benign neoplasm of transverse colon; F17.200 Nicotine dependence, unspecified, uncomplicated; F32.9 Major depressive disorder, single episode, unspecified; F51.01 Primary insomnia; G43.919 Migraine, unspecified, intractable, without status migrainosus; G89.29 Other chronic pain; J44.9 Chronic obstructive pulmonary disease, unspecified; K21.9 Gastro-esophageal reflux disease without esophagitis; K64.4 Residual hemorrhoidal skin tags; K64.8 Other hemorrhoids; M47.9 Spondylosis, unspecified; I25.2 Old myocardial infarction; Z80.0 Family history of malignant neoplasm of digestive organs; Z80.3 Family history of malignant neoplasm of breast; Z82.5 Family history of asthma and other chronic lower respiratory diseases; Z83.3 Family history of diabetes mellitus; Z85.47 Personal history of malignant neoplasm of testis; Z85.51 Personal history of malignant neoplasm of bladder; Z87.19 Personal history of other diseases of the digestive system; Z88.9 Allergy status to unspecified drugs, medicaments and biological substances
CPT/HCPCS: 45380; 45381; 45385; 64488; 80048; 80053; 83735; 84100; 85025; 85027; 86850; 86900; 86901; 88305; 88307; 94640

== ENCOUNTER → 2019-04-29 | Outpatient (CLI) | payer MEDICAID, MEDICARE ==
--- NOTE | 2019-04-29 13:33 | XR ---
EXAMINATION TYPE: XR abdomen 2V DATE OF EXAM: 04/29/2019 COMPARISON: 03/01/2019 HISTORY: Pain TECHNIQUE: One view abdominal series FINDINGS: Postsurgical changes are seen. There is arthropathy of the hips. Degenerative changes spine with diff use osteopenia. Bowel gas pattern nonspecific. No diagnostic evidence of obstruction. Calcifications the pelvis likel y vascular. Right basilar infiltrate noted. IMPRESSION: 1. Nonspecific abdomen with no diagnostic evidence of obstruction. 2. Right basilar infiltrate or atelectasis. Similar to the prior exam of 03/01/2019.
--- NOTE | 2019-04-29 17:36 | P.PN ---
Progress Note - Text Progress Note Date: 04/29/19 I personally called the patient regarding results of the abdominal x-ray. I personally reviewed his abdominal x-ray without findings of free air or bowel obstruction. Patient encouraged to continue a liquid diet and follow-up in the next office visit. Patient pleased with the results overall.
== END | disposition home or self-care (01) ==
LOC: RADXRMAIN 12:33
PROVIDERS: ATTEND Surgery Plastic and Reconstructive Surgery
DX: K56.7 Ileus, unspecified (principal)
CPT/HCPCS: 74019

== ENCOUNTER → 2019-05-08 | Outpatient (CLI) | payer MEDICAID, MEDICARE ==
--- NOTE | 2019-05-08 09:57 | CT ---
EXAMINATION TYPE: CT abdomen pelvis wo con DATE OF EXAM: 05/08/2019 COMPARISON: Prior CT 02/26/2019 HISTORY: Colon strictures, left upper quadrant pain CT DLP: 280.2 mGycm Automated exposure control for dose reduction was used. TECHNIQUE: Helical acquisition of images from the lung bases through the pelvis. FINDINGS: Lack of intravenous contrast could compromise sensitivity of the exam. LUNG BASES: No significant abnormality is appreciated. AORTA: No significant interval change. LIVER/GB: No significant interval change is appreciated. Multiple crescentic calcifications are scatt ered about the undersurface of the hemidiaphragm as on prior exam, the liver shows a nodular contour, gallbladder is not seen, suspect surgical clips are present in the anita PANCREAS: No significant abnormality is seen. SPLEEN: No significant abnormality is seen. ADRENALS: No significant abnormality is seen. KIDNEYS: No significant interval change is seen. REPRODUCTIVE ORGANS: No significant abnormality is seen. URINARY BLADDER: No significant abnormality is seen. BOWEL: There is diverticular change present as noted on prior exams within the colon, postop changes are noted in the left lower quadrant. Retained fecal debris present throughout the distribution of t he colon FREE AIR: No Free Air is visible. ASCITES: None visible. PELVIC ADENOPATHY: None visualized. RETROPERITONEAL ADENOPATHY: No Retroperitoneal Adenopathy visible. OSSEOUS STRUCTURES: No significant change is seen, postop changes, streak artifact at the lower lumb ar spine as on prior. IMPRESSION: POSTOP CHANGES. CORRELATE FOR FECAL STASIS. DIVERTICULOSIS.
== END | disposition home or self-care (01) ==
LOC: RADCTMAIN 07:45
PROVIDERS: ATTEND Surgery Plastic and Reconstructive Surgery
DX: K57.90 Diverticulosis of intestine, part unspecified, without perforation or abscess without bleeding (principal); Z98.890 Other specified postprocedural states
CPT/HCPCS: 74176

== ENCOUNTER → 2019-08-03 | Outpatient (CLI) | payer MEDICAID, MEDICARE | END | disposition home or self-care (01) | LOC: LABWHC1 08:33 | PROVIDERS: ATTEND Urology | DX: C61 Malignant neoplasm of prostate (principal) | CPT/HCPCS: 36415; 84153 ==

== ENCOUNTER 2019-09-09 10:56 | Observation (INO) | payer MEDICAID, MEDICARE ==
[2019-09-09] MEDS ORDERED: SODIUM CHLORIDE 0.9% 1,000 ML IV STA ×2 (11:25)
[2019-09-09] MEDS ORDERED: MORPHINE SULFATE 2 MG/ML SYRINGE IVP STA ×2 (11:25→13:01)
--- NOTE | 2019-09-09 11:35 | ED ---
Abdominal Pain HPI - General Source: patient, family, RN notes reviewed, old records reviewed Mode of arrival: wheelchair Limitations: no limitations <Ashleigh Orlando - Last Filed: 09/09/19 16:07> <Lisa Bowie - Last Filed: 09/11/19 00:28> - General Chief Complaint: Abdominal Pain Stated Complaint: LARS Time Seen by Provider: 09/09/19 11:10 - History of Present Illness Initial Comments: 74-year-old male presents emergency department today with complaints of abdominal pain and fullness and bloating for the past few weeks. He has not had a bowel movement in over a week. He's had a history of colon resection by Dr. Bishop due to colonic stricture from diverticulosis. This was done a few months ago. Patient reports he drinks a gallon of water every day and takes multiple stool softeners and laxatives but is still not been able to have a bowel movement. He states that he has had some bloating and a bit episodes of vomiting this week. Patient had a 10 pound weight gain over the past week. Patient reports that he also has been having some worsening difficulty in breathing and wheezing. He has a known history of COPD. He was seen by his cook pie Dr. Medrano 2 weeks ago had a chest x-ray which was reportedly clear. He was started on prednisone for COPD exacerbation. He reports that t hat seems to not improve at this time and is even worsening. Patient states his last breathing treatment was prior to arrival. He denies any recorded fevers. He denies any change in urination. (Ashleigh Orlando) - Related Data Home Medications Medication Instructions Recorded Confirmed Omeprazole 40 mg PO DAILY 08/17/18 09/09/19 Fluticasone/Salmeterol [Advair 1 puff INHALATION RT-BID 01/15/19 09/09/19 500-50 Diskus] Ipratropium-Albuterol Nebulize 3 ml INHALATION RT-QID 02/26/19 09/09/19 [Duoneb 0.5 mg-3 mg/3 ml Soln] Albuterol Sulfate [Ventolin HFA] 2 puff INHALATION RT-QID PRN 09/09/19 09/09/19 Methocarbamol [Robaxin-750] 750 mg PO TID 09/09/19 09/09/19 Umeclidinium [place] [Incruse 1 puff INHALATION RT-DAILY 09/09/19 09/09/19 Ellipta] predniSONE See Taper PO DAILY 09/09/19 09/09/19 Allergies Allergy/AdvReac Type Severity Reaction Status Date / Time chocolate flavor Allergy TRIGGERS Verified 09/09/19 13:13 MIGRAINE Iodinated Contrast Media Allergy Anaphylaxis Verified 09/09/19 13:13 [Iodinated Contrast Media - IV Dye] iodine Allergy Anaphylaxis Verified 09/09/19 13:13 peanut Allergy TRIGGERS Verified 09/09/19 13:13 MIGRAINES Penicillins Allergy Anaphylaxis Verified 09/09/19 13:13 Sulfa (Sulfonamide Allergy Anaphylaxis Verified 09/09/19 13:13 Antibiotics) fentanyl AdvReac Severe SEVERE Verified 09/09/19 13:13 MIGRAINES adhesive AdvReac tears skin Verified 09/09/19 13:13 banana AdvReac HEADACHE Verified 09/09/19 13:13 gabapentin AdvReac Confusion Verified 09/09/19 13:13 tree nut [Nut] AdvReac HEADACHE Verified 09/09/19 13:13 yellow dye AdvReac HEADACHE Verified 09/09/19 13:13 OPIODS AdvReac Severe MIGRAINES Uncoded 09/09/19 13:13 Review of Systems ROS Other: All systems not noted in ROS Statement are negative. <Ashleigh Orlando - Last Filed: 09/09/19 16:07> ROS Other: All systems not noted in ROS Statement are negative. <Lisa Bowie - Last Filed: 09/11/19 00:28> ROS Statement: Those systems with pertinent positive or pertinent negative responses have been documented in the HPI. 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, R testicular cancer with orchiectomy/radiation, chronic back and cervical pain, frequent debilitating migraines, bilateral sciatica, upper GI bleeds, hiatal hernia, gastritis, Diego's palsy Last Myocardial Infarction Date:: 05/25/14 History of Any Multi-Drug Resistant Organisms: None Reported Past Surgical History: Adenoidectomy, Appendectomy, Back Surgery, Cholecystectomy, Heart Catheterization, Hernia Repair, Orthopedic Surgery, Tonsillectomy Additional Past Surgical History / Comment(s): 08/03/15 EGD colonoscopy,l cardiac cath, several back sx including laminectomy, spinous process removed T11 and T12/cage and arturo, bilateral arthroscopic knee surgeries, left thumb surgeries with rt one having titanium joint, L rotator cuff repair, several nasal polypectomies, RFA cervical/back, R/L inguinal hernia repairs, rt orchiectomy; diaphragmatic hernia repair Past Anesthesia/Blood Transfusion Reactions: No Reported Reaction Past Psychological History: Depression Smoking Status: Former smoker Past Alcohol Use History: None Reported Past Drug Use History: None Reported - Past Family History Father Family Medical History: Cancer Additional Family Medical History / Comment(s): Father of stomach ca at the age of 65 yrs. Mother Family Medical History: No Reported History Additional Family Medical History / Comment(s): Mother of "old age". She was 83 yrs old Brother(s) Family Medical History: Diabetes Mellitus Additional Family Medical History / Comment(s): brain tumor Sister(s) Family Medical History: Diabetes Mellitus Additional Family Medical History / Comment(s): breast ca (sisters) <Ashleigh Orlando - Last Filed: 09/09/19 16:07> General Exam Limitations: no limitations General appearance: alert, in no apparent distress Head exam: Present: atraumatic Eye exam: Present: normal appearance ENT exam: Present: normal exam, mucous membranes moist Neck exam: Present: normal inspection. Absent: tenderness, meningismus, lymphadenopathy Respiratory exam: Present: wheezes (All four quadrants ). Absent: normal lung sounds bilaterally, respiratory distress, rales, rhonchi, stridor Cardiovascular Exam: Present: regular rate, normal rhythm, normal heart sounds. Absent: systolic murmur, diastolic murmur, rubs, gallop, clicks GI/Abdominal exam: Present: soft, normal bowel sounds. Absent: distended, tenderness, guarding, rebound, rigid Extremities exam: Present: normal inspection, full ROM, normal capillary refill. Absent: tenderness, pedal edema, joint swelling, calf tenderness Back exam: Present: normal inspection Neurological exam: Present: alert, oriented X3, CN II-XII intact Psychiatric exam: Present: normal affect, normal mood Skin exam: Present: warm, dry, intact, normal color. Absent: rash <Ashleigh Orlando - Last Filed: 09/09/19 16:07> - General Exam Comments Initial Comments: 74 -year-old male. (Ashleigh Orlando) Course Vital Signs 09/09/19 09/09/19 09/09/19 10:56 12:22 12:33 Temperature 97.8 F Pulse Rate 76 70 70 Respiratory 18 Rate Blood Pressure 126/87 O2 Sat by Pulse 97 Oximetry 09/09/19 09/09/19 15:08 16:23 Temperature Pulse Rate 87 88 Respiratory 18 18 Rate Blood Pressure 142/84 131/89 O2 Sat by Pulse 96 95 Oximetry Medical Decision Making - Lab Data Result diagrams: 09/09/19 11:56 09/09/19 11:56 - Radiology Data Radiology results: report reviewed <Ashleigh Orlando - Last Filed: 09/09/19 16:07> - Lab Data Result diagrams: 09/10/19 05:37 09/10/19 05:37 <Lisa Bowie - Last Filed: 09/11/19 00:28> - Medical Decision Making 74-year-old male with history of COPD and history of colon colon resection presents for his discomfort. Abdominal fullness concern for constipation and possible bowel obstruction. He also presented with worsening difficulty breathing and wheezing. He was seen by Dr. Medrano this week and started on prednisone. He reports no significant improvement. On arrival he had wheezing throughout all lung castellanos. Patient's labs reveal a relatively unremarkable. Patient is young pelvis was completed for concern for some minor minor air-fluid levels on KUB. His air-fluid levels did probably due to concern for initial obstruction. Patient CT abdomen and pelvis was completed and showed evidence of fecal stasis small pleural effusion. I had Dr. Bowie evaluate the Patient and she is so clinically unwell breathing with difficulty. Patient's will now be admitted for COPD exacerbation started on steroids and DuoNeb treatments. I also started put the Patient on a bowel regimen of Dulcolax and mag citrate to promote normal bowel habits. (Ashleigh Orlando) I was available for consultation in the emergency department. The history and physical exam were done by the midlevel provider. I was consulted for this patients care. I reviewed the case with the midlevel provider and based on their presentation of the patient, I agree with the assessment, medical decision making and plan of care as documented. I evaluated the patient myself. Concerned with patients work of breathing while failing outpatient treatment on steroids. Recommended admission for IV steroids and scheduled breathing treatments. Patient agreed. Chart was dictated using [employer] dictation software. Attempts were made to correct any dictation errors however some typographical errors may persist. Patient was seen during a national state of emergency due to the Covid-19 pandemic. (Lisa Bowie) - Lab Data Lab Results 09/09/19 09/09/19 09/09/19 Range/Units 11:56 11:56 11:56 WBC 12.4 H (3.8-10.6) k/uL RBC 4.93 (4.30-5.90) m/uL Hgb 16.0 (13.0-17.5) gm/dL Hct 48.6 (39.0-53.0) % MCV 98.5 (80.0-100.0) fL MCH 32.4 (25.0-35.0) pg MCHC 32.9 (31.0-37.0) g/dL RDW 14.7 (11.5-15.5) % Plt Count 230 (150-450) k/uL Neutrophils % 77 % Lymphocytes % 11 % Monocytes % 6 % Eosinophils % 2 % Basophils % 1 % Neutrophils # 9.6 H (1.3-7.7) k/uL Lymphocytes # 1.4 (1.0-4.8) k/uL Monocytes # 0.8 (0-1.0) k/uL Eosinophils # 0.2 (0-0.7) k/uL Basophils # 0.1 (0-0.2) k/uL PT 9.6 (9.0-12.0) sec INR 0.9 (<1.2) APTT 23.2 (22.0-30.0) sec D-Dimer 0.60 H (<0.60) mg/L FEU Sodium 135 L (137-145) mmol/L Potassium 4.7 (3.5-5.1) mmol/L Chloride 99 (98-107) mmol/L Carbon Dioxide 29 (22-30) mmol/L Anion Gap 7 mmol/L BUN 16 (9-20) mg/dL Creatinine 0.68 (0.66-1.25) mg/dL Est GFR (CKD-EPI)AfAm >90 (>60 ml/min/1.73 sqM) Est GFR (CKD-EPI)NonAf >90 (>60 ml/min/1.73 sqM) Glucose 96 (74-99) mg/dL Plasma Lactic Acid Finesse (0.7-2.0) mmol/L Calcium 9.6 (8.4-10.2) mg/dL Magnesium 2.2 (1.6-2.3) mg/dL Ferritin 36.2 (22.0-322.0) ng/mL Total Bilirubin 0.7 (0.2-1.3) mg/dL AST 41 (17-59) U/L ALT 71 H (4-49) U/L Alkaline Phosphatase 87 (38-126) U/L Lactate Dehydrogenase 444 (313-618) U/L Troponin I (0.000-0.034) ng/mL C-Reactive Protein <5.0 (<10.0) mg/L NT-Pro-B Natriuret Pep pg/mL Total Protein 6.4 (6.3-8.2) g/dL Albumin 3.8 (3.5-5.0) g/dL Amylase 76 (30-110) U/L Lipase 58 (23-300) U/L Procalcitonin (0.02-0.09) ng/mL Urine Color Urine Appearance (Clear) Urine pH (5.0-8.0) Ur Specific [place] (1.001-1.035) Urine Protein (Negative) Urine Glucose (UA) (Negative) Urine Ketones (Negative) Urine Blood (Negative) Urine Nitrite (Negative) Urine Bilirubin (Negative) Urine Urobilinogen (<2.0) mg/dL Ur Leukocyte Esterase (Negative) Coronavirus (PCR) (Not Detected) 09/09/19 09/09/19 09/09/19 Range/Units 11:56 11:56 11:56 WBC (3.8-10.6) k/uL RBC (4.30-5.90) m/uL Hgb (13.0-17.5) gm/dL Hct (39.0-53.0) % MCV (80.0-100.0) fL MCH (25.0-35.0) pg MCHC (31.0-37.0) g/dL RDW (11.5-15.5) % Plt Count (150-450) k/uL Neutrophils % % Lymphocytes % % Monocytes % % Eosinophils % % Basophils % % Neutrophils # (1.3-7.7) k/uL Lymphocytes # (1.0-4.8) k/uL Monocytes # (0-1.0) k/uL Eosinophils # (0-0.7) k/uL Basophils # (0-0.2) k/uL PT (9.0-12.0) sec INR (<1.2) APTT (22.0-30.0) sec D-Dimer (<0.60) mg/L FEU Sodium (137-145) mmol/L Potassium (3.5-5.1) mmol/L Chloride (98-107) mmol/L Carbon Dioxide (22-30) mmol/L Anion Gap mmol/L BUN (9-20) mg/dL Creatinine (0.66-1.25) mg/dL Est GFR (CKD-EPI)AfAm (>60 ml/min/1.73 sqM) Est GFR (CKD-EPI)NonAf (>60 ml/min/1.73 sqM) Glucose (74-99) mg/dL Plasma Lactic Acid Finesse 1.5 (0.7-2.0) mmol/L Calcium (8.4-10.2) mg/dL Magnesium (1.6-2.3) mg/dL Ferritin (22.0-322.0) ng/mL Total Bilirubin (0.2-1.3) mg/dL AST (17-59) U/L ALT (4-49) U/L Alkaline Phosphatase (38-126) U/L Lactate Dehydrogenase (313-618) U/L Troponin I <0.012 (0.000-0.034) ng/mL C-Reactive Protein (<10.0) mg/L NT-Pro-B Natriuret Pep 75 pg/mL Total Protein (6.3-8.2) g/dL Albumin (3.5-5.0) g/dL Amylase (30-110) U/L Lipase (23-300) U/L Procalcitonin (0.02-0.09) ng/mL Urine Color Urine Appearance (Clear) Urine pH (5.0-8.0) Ur Specific [place] (1.001-1.035) Urine Protein (Negative) Urine Glucose (UA) (Negative) Urine Ketones (Negative) Urine Blood (Negative) Urine Nitrite (Negative) Urine Bilirubin (Negative) Urine Urobilinogen (<2.0) mg/dL Ur Leukocyte Esterase (Negative) Coronavirus (PCR) (Not Detected) 09/09/19 09/09/19 09/09/19 Range/Units 11:56 12:22 15:08 WBC (3.8-10.6) k/uL RBC (4.30-5.90) m/uL Hgb (13.0-17.5) gm/dL Hct (39.0-53.0) % MCV (80.0-100.0) fL MCH (25.0-35.0) pg MCHC (31.0-37.0) g/dL RDW (11.5-15.5) % Plt Count (150-450) k/uL Neutrophils % % Lymphocytes % % Monocytes % % Eosinophils % % Basophils % % Neutrophils # (1.3-7.7) k/uL Lymphocytes # (1.0-4.8) k/uL Monocytes # (0-1.0) k/uL Eosinophils # (0-0.7) k/uL Basophils # (0-0.2) k/uL PT (9.0-12.0) sec INR (<1.2) APTT (22.0-30.0) sec D-Dimer (<0.60) mg/L FEU Sodium (137-145) mmol/L Potassium (3.5-5.1) mmol/L Chloride (98-107) mmol/L Carbon Dioxide (22-30) mmol/L Anion Gap mmol/L BUN (9-20) mg/dL Creatinine (0.66-1.25) mg/dL Est GFR (CKD-EPI)AfAm (>60 ml/min/1.73 sqM) Est GFR (CKD-EPI)NonAf (>60 ml/min/1.73 sqM) Glucose (74-99) mg/dL Plasma Lactic Acid Finesse (0.7-2.0) mmol/L Calcium (8.4-10.2) mg/dL Magnesium (1.6-2.3) mg/dL Ferritin (22.0-322.0) ng/mL Total Bilirubin (0.2-1.3) mg/dL AST (17-59) U/L ALT (4-49) U/L Alkaline Phosphatase (38-126) U/L Lactate Dehydrogenase (313-618) U/L Troponin I (0.000-0.034) ng/mL C-Reactive Protein (<10.0) mg/L NT-Pro-B Natriuret Pep pg/mL Total Protein (6.3-8.2) g/dL Albumin (3.5-5.0) g/dL Amylase (30-110) U/L Lipase (23-300) U/L Procalcitonin 0.05 (0.02-0.09) ng/mL Urine Color Light Yellow Urine Appearance Clear (Clear) Urine pH 6.5 (5.0-8.0) Ur Specific [place] 1.015 (1.001-1.035) Urine Protein Negative (Negative) Urine Glucose (UA) Negative (Negative) Urine Ketones Negative (Negative) Urine Blood Negative (Negative) Urine Nitrite Negative (Negative) Urine Bilirubin Negative (Negative) Urine Urobilinogen <2.0 (<2.0) mg/dL Ur Leukocyte Esterase Negative (Negative) Coronavirus (PCR) Not Detected (Not Detected) - Radiology Data Chest x-ray shows no evidence of acute pulmonary disease. Chest x-ray shows nonspecific nonobstructive bowel gas pattern. CT shows postop changes. Small right pleural effusion. Correlate for possible fecal stasis. Enteritis. (Ashleigh Orlando) Disposition Is patient prescribed a controlled substance at d/c from ED?: No Time of Disposition: 15:52 <Ashleigh Orlando - Last Filed: 09/09/19 16:07> <Lisa Bowie - Last Filed: 09/11/19 00:28> Clinical Impression: COPD exacerbation, Constipation Disposition: ADMITTED IP TO THIS HOSP Condition: Stable
[2019-09-09] MEDS ORDERED: IPRATROPIUM-ALBUTEROL 3 ML NEB INHALATION STA (11:57)
[2019-09-09 12:24] LABS: Basophils # (A) 0.1 k/uL (0-0.2); Basophils % (A) 1 %; Eosinophils # (A) 0.2 k/uL (0-0.7); Eosinophils % (A) 2 %; HCT 48.6 % (39.0-53.0); Lymphocytes # (A) 1.4 k/uL (1.0-4.8); Lymphocytes % (A) 11 %; MCH 32.4 pg (25.0-35.0); MCHC 32.9 g/dL (31.0-37.0); MCV 98.5 fL (80.0-100.0); Mean Platelet Volume 8.1; Monocytes # (A) 0.8 k/uL (0-1.0); Monocytes % (A) 6 %; Neutrophils # (A) 9.6 k/uL (1.3-7.7); Neutrophils % (A) 77 %; Platelet Count 230 k/uL (150-450); RBC 4.93 m/uL (4.30-5.90); RDW 14.7 % (11.5-15.5); WBC 12.4 k/uL (3.8-10.6)
[2019-09-09 12:26] LABS: ALT 71 U/L (4-49); AST 41 U/L (17-59); African American GFR (CKD) >90 (>60 ml/min/1.73 sqM); Albumin 3.8 g/dL (3.5-5.0); Alkaline Phosphatase 87 U/L (38-126); Amylase 76 U/L (30-110); Anion Gap 7 mmol/L; Blood Urea Nitrogen 16 mg/dL (9-20); C Reactive Protein <5.0 mg/L (<10.0); Calcium 9.6 mg/dL (8.4-10.2); Carbon Dioxide 29 mmol/L (22-30); Chloride 99 mmol/L (98-107); Glucose 96 mg/dL (74-99); LDH 444 U/L (313-618); Magnesium 2.2 mg/dL (1.6-2.3); Non-African American GFR(CKD) >90 (>60 ml/min/1.73 sqM); Potassium 4.7 mmol/L (3.5-5.1); Sodium 135 mmol/L (137-145); Total Bilirubin 0.7 mg/dL (0.2-1.3); Total Protein 6.4 g/dL (6.3-8.2)
--- NOTE | 2019-09-09 12:37 | XR ---
EXAMINATION TYPE: XR chest 2V DATE OF EXAM: 09/09/2019 COMPARISON: 03/01/2019 HISTORY: Shortness of breath TECHNIQUE: Frontal and lateral views of the chest are obtained. FINDINGS: Scattered senescent parenchymal changes noted. Hyperinflation compatible with COPD. No evidence for infiltrate. No evidence for atelectasis. Heart size is stable. Mediastinal structures are stable and grossly unremarkable. No evidence for hilar prominence. Degenerative changes dorsal spine. IMPRESSION: 1. No evidence for acute pulmonary disease.
--- NOTE | 2019-09-09 12:38 | XR ---
EXAMINATION TYPE: XR KUB DATE OF EXAM: 09/09/2019 COMPARISON: 03/01/2019 HISTORY: Pain TECHNIQUE: Single supine KUB image of the abdomen is obtained FINDINGS: Small bowel demonstrates no evidence for dilatation or air fluid levels. Gas and fecal material is seen in non-distended colon. Moderate fecal stasis. No convincing evidence for pneumoperitoneum. No unusual calcifications. The lung bases are clear. The osseous structures are intact. IMPRESSION: 1. Nonspecific nonobstructive bowel gas pattern.
[2019-09-09 12:50] LABS: INR 0.9 (<1.2); Partial Thromboplastin Time 23.2 sec (22.0-30.0); Prothrombin Time 9.6 sec (9.0-12.0)
[2019-09-09 12:59] LABS: D-Dimer 0.6 mg/L FEU (<0.60)
[2019-09-09] MEDS ORDERED: FAMOTIDINE 20 MG/2 ML VIAL IV STA (13:04)
[2019-09-09] MEDS ORDERED: methylPREDNISolone SOD SUCCI 125 MG/2 ML VIAL IV STA (13:04)
[2019-09-09] MEDS ORDERED: diphenhydrAMINE 50 MG/ML 1 ML VIAL IVP STA (13:04)
--- NOTE | 2019-09-09 14:11 | CT ---
EXAMINATION TYPE: CT abdomen pelvis w con DATE OF EXAM: 09/09/2019 COMPARISON: Prior CT 05/08/2019 HISTORY: Abdominal distention. CT DLP: 876 mGycm Automated exposure control for dose reduction was used. TECHNIQUE: Helical acquisition of images from the lung bases through the pelvis have been completed. CONTRAST: Performed without Oral Contrast and with IV Contrast, patient injected with 100 mL of Isovue 300. FINDINGS: Postop changes are again suspected, metallic densities at the undersurface of the right hem idiaphragm may be related to postoperative change. LUNG BASES: There is a small right pleural effusion which was not seen on prior exam, minimal basilar atelectasis. AORTA: No significant abnormality is appreciated. LIVER/GB: The lobular contour to the liver at the level of the right hemidiaphragm is again noted, pa tient is post cholecystectomy and there is prominence of the bile ducts which is likely due to postch olecystectomy change PANCREAS: No significant interval change is seen, prominence of the pancreatic duct is better seen on today's exam. SPLEEN: No significant abnormality is seen. ADRENALS: No significant abnormality is seen. KIDNEYS: No significant change is seen, nonobstructive calcification at the for pole the left kidney is stable, no hydronephrosis bilaterally. REPRODUCTIVE ORGANS: No significant abnormality is seen BOWEL: Postop changes are noted to the colon as on prior. Is not seen. Retained fecal debris present throughout the distribution of the colon, there are fluid- filled loops of small bowel scattered within the abdomen. FREE AIR: No Free Air visible. ASCITES: None visible. PELVIC ADENOPATHY: None visualized. RETROPERITONEAL ADENOPATHY: No Retroperitoneal Adenopathy visible. URINARY BLADDER: No significant abnormality is seen. OSSEOUS STRUCTURES: Postop changes are noted to the lumbar spine. Metallic density present along the anterior superior iliac spine is a stable finding. IMPRESSION: POSTOP CHANGES. SMALL RIGHT PLEURAL EFFUSION. CORRELATE FOR POSSIBLE FECAL STASIS, ENTERITIS
[2019-09-09 15:31] LABS: Appearance,Urine Clear (Clear); Bilirubin,Urine Negative (Negative); Blood,Urine Negative (Negative); Color,Urine Light Yellow; Glucose,Urine (UA) Negative (Negative); Ketones,Urine Negative (Negative); Leukocyte Esterase,Urine Negative (Negative); Nitrite,Urine Negative (Negative); PH, Urine 6.5 (5.0-8.0); Protein,Urine Negative (Negative); Specific Gravity,Urine 1.015 (1.001-1.035); Urobilinogen,Urine <2.0 mg/dL (<2.0)
[2019-09-09] MEDS ORDERED: MAGNESIUM CITRATE 296 ML BOTTLE PO ONE (15:48)
[2019-09-09] MEDS ORDERED: IPRATROPIUM-ALBUTEROL 3 ML NEB INHALATION PRN (15:49)
[2019-09-09] MEDS ORDERED: bisacodyL 5 MG TABLET.DR PO STA (15:49)
[2019-09-09] MEDS ORDERED: HYDROmorphone 1 MG/ML 1 ML SYRINGE IVP STA (16:13)
[2019-09-09] MEDS ORDERED: ALBUTEROL HFA INHALER INHALATION PRN (17:44)
[2019-09-09] MEDS: IPRATROPIUM-ALBUTEROL 3 ML NEB INHALATION SCH (19:31)
[2019-09-09] MEDS ORDERED: SYMBICORT 80-4.5 MCG INHALER INHALATION SCH (20:00)
[2019-09-09] MEDS: methocarbamoL 750 MG TAB PO SCH (21:06)
[2019-09-09] MEDS: MORPHINE SULFATE 2 MG/ML SYRINGE IVP PRN ×2 (21:06→21:10)
[2019-09-09 21:10] LABS: Ferritin 36.2 ng/mL (22.0-322.0)
--- NOTE | 2019-09-09 21:21 | P.HPIM ---
History of Present Illness H&P Date: 09/09/19 Chief Complaint: Constipation This is a history of physical 74-year-old white male with known history of COPD, migraine headaches who has had obstipation/constipation for the last week or so. He is admitted secondary to shortness of breath. He supposedly saw pulmonology about a week ago and was given steroids and was feeling a little better. However as the week went on, he has more dyspnea. No fever no overt chills stated. Minimal cough and however, given his multiple complaints, we will help him with appropriate constipatory medication and COPD. Review of Systems Constitutional: Denies chills, Denies fever Eyes: denies blurred vision, denies pain Ears, nose, mouth and throat: Denies headache, Denies sore throat Cardiovascular: Denies chest pain, Denies shortness of breath Respiratory: Reports as per HPI, Reports cough Gastrointestinal: Reports bloating, Reports constipation, Reports nausea Musculoskeletal: Denies myalgias 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, R testicular cancer with orchiectomy/radiation, chronic back and cervical pain, frequent debilitating migraines, bilateral sciatica, upper GI bleeds, hiatal hernia, gastritis, Diego's palsy Last Myocardial Infarction Date:: 05/25/14 History of Any Multi-Drug Resistant Organisms: None Reported Past Surgical History: Adenoidectomy, Appendectomy, Back Surgery, Cholecystectomy, Heart Catheterization, Hernia Repair, Orthopedic Surgery, Tonsillectomy Additional Past Surgical History / Comment(s): 08/03/15 EGD colonoscopy,l cardiac cath, several back sx including laminectomy, spinous process removed T11 and T12/cage and arturo, bilateral arthroscopic knee surgeries, left thumb surgeries with rt one having titanium joint, L rotator cuff repair, several nasal polypectomies, RFA cervical/back, R/L inguinal hernia repairs, rt orchiectomy; diaphragmatic hernia repair 03/2019 section of sigmoid colon removed. Past Anesthesia/Blood Transfusion Reactions: No Reported Reaction Past Psychological History: Depression Additional Psychological History / Comment(s): Patient resides with his spouse of 55 yrs. He has chronic pain and debilitating migraines. He has a cane and walker which he uses prn. He has falls. He drives some but spouse does most of the driving. Spouse works afternoons at [employer] in patient check in/previous MRI. Smoking Status: Former smoker Past Alcohol Use History: None Reported Additional Past Alcohol Use History / Comment(s): Pt started smoking in 1959 and quit cigarettes in 2003, smoked 1 1/2ppd Past Drug Use History: None Reported - Past Family History Father Family Medical History: Cancer Additional Family Medical History / Comment(s): Father of stomach ca at the age of 65 yrs. Mother Family Medical History: No Reported History Additional Family Medical History / Comment(s): Mother of "old age". She was 83 yrs old Brother(s) Family Medical History: Diabetes Mellitus Additional Family Medical History / Comment(s): brain tumor Sister(s) Family Medical History: Diabetes Mellitus Additional Family Medical History / Comment(s): breast ca (sisters) Medications and Allergies Home Medications Medication Instructions Recorded Confirmed Type Omeprazole 40 mg PO DAILY 08/17/18 09/09/19 History Fluticasone/Salmeterol [Advair 1 puff INHALATION RT-BID 01/15/19 09/09/19 History 500-50 Diskus] Ipratropium-Albuterol Nebulize 3 ml INHALATION RT-QID 02/26/19 09/09/19 History [Duoneb 0.5 mg-3 mg/3 ml Soln] Albuterol Sulfate [Ventolin HFA] 2 puff INHALATION RT-QID PRN 09/09/19 09/09/19 History Methocarbamol [Robaxin-750] 750 mg PO TID 09/09/19 09/09/19 History Umeclidinium [place] [Incruse 1 puff INHALATION RT-DAILY 09/09/19 09/09/19 History Ellipta] predniSONE See Taper PO DAILY 09/09/19 09/09/19 History Allergies Allergy/AdvReac Type Severity Reaction Status Date / Time chocolate flavor Allergy TRIGGERS Verified 09/09/19 13:13 MIGRAINE Iodinated Contrast Media Allergy Anaphylaxis Verified 09/09/19 13:13 [Iodinated Contrast Media - IV Dye] iodine Allergy Anaphylaxis Verified 09/09/19 13:13 peanut Allergy TRIGGERS Verified 09/09/19 13:13 MIGRAINES Penicillins Allergy Anaphylaxis Verified 09/09/19 13:13 Sulfa (Sulfonamide Allergy Anaphylaxis Verified 09/09/19 13:13 Antibiotics) fentanyl AdvReac Severe SEVERE Verified 09/09/19 13:13 MIGRAINES adhesive AdvReac tears skin Verified 09/09/19 13:13 banana AdvReac HEADACHE Verified 09/09/19 13:13 gabapentin AdvReac Confusion Verified 09/09/19 13:13 tree nut [Nut] AdvReac HEADACHE Verified 09/09/19 13:13 yellow dye AdvReac HEADACHE Verified 09/09/19 13:13 OPIODS AdvReac Severe MIGRAINES Uncoded 09/09/19 13:13 Physical Exam Vitals: Vital Signs Temp Pulse Pulse Resp BP BP Pulse Ox 09/09/19 20:00 97.6 F 104 H 18 149/81 96 09/09/19 19:43 70 09/09/19 19:31 68 09/09/19 16:23 88 18 131/89 95 09/09/19 15:08 87 18 142/84 96 09/09/19 12:33 70 09/09/19 12:22 70 09/09/19 10:56 97.8 F 76 18 126/87 97 Intake and Output 09/09/19 09/09/19 09/09/19 06:59 14:59 22:59 Other: Voiding Method Toilet Weight 68.039 kg 68.039 kg - Constitutional General appearance: no acute distress - EENT Eyes: no abnormal pupil - Respiratory Respiratory: bilateral: diminished - Cardiovascular Rhythm: regular Heart sounds: normal: S1, S2 Abnormal Heart Sounds: no S3 Gallop - Gastrointestinal General gastrointestinal: soft, no tenderness - Integumentary Integumentary: normal - Neurologic Neurologic: CNII-XII intact Results CBC & Chem 7: 09/09/19 11:56 09/09/19 11:56 Labs: Abnormal Lab Results - Last 24 Hours (Table) 09/09/19 09/09/19 09/09/19 Range/Units 11:56 11:56 11:56 WBC 12.4 H (3.8-10.6) k/uL Neutrophils # 9.6 H (1.3-7.7) k/uL D-Dimer 0.60 H (<0.60) mg/L FEU Sodium 135 L (137-145) mmol/L ALT 71 H (4-49) U/L Thrombosis Risk Factor Assmnt - Choose All That Apply Any of the Below Risk Factors Present?: No Other Risk Factors: Yes Each Risk Factor Represents 2 Points: Age 61-74 years Other congenital or acquired thrombophilia - If yes, enter type in comment: No Thrombosis Risk Factor Assessment Total Risk Factor Score: 2 Thrombosis Risk Factor Assessment Level: Low Risk Assessment and Plan (1) COPD exacerbation Current Visit: Yes Status: Acute Code(s): J44.1 - CHRONIC OBSTRUCTIVE PULMO NARY DISEASE W (ACUTE) EXACERBATION SNOMED Code(s): 903299270 (2) Constipation Current Visit: Yes Status: Acute Code(s): K59.00 - CONSTIPATION, UNSPECIFIED SNOMED Code(s): 42841527 (3) Abdominal pain Current Visit: No Status: Acute Code(s): R10.9 - UNSPECIFIED ABDOMINAL PAIN SNOMED Code(s): 31386680 (4) At risk for readmission to hospital Current Visit: No Status: Acute Code(s): Z91.89 - OTH PERSONAL RISK FACTORS, NOT ELSEWHERE CLASSIFIED SNOMED Code(s): 9065798873795 (5) Headache Current Visit: No Status: Acute Code(s): R51 - HEADACHE SNOMED Code(s): 38316302 (6) S/P colon resection Current Visit: No Status: Acute Code(s): Z90.49 - ACQUIRED ABSENCE OF OTHER SPECIFIED PARTS OF DIGESTIVE TRACT SNOMED Code(s): 771757361 Plan: We'll going consult pulmonology and Dr. Bishop for general surgery touch base. Check CBC and CMP in a.m. We'll add Reglan for nausea and constipation. Otherwise, place on appropriate Solu-Medrol. The patient is a full code at this time. See orders otherwise.
[2019-09-09] MEDS: METOCLOPRAMIDE 5 MG/ML 2 ML VIAL IVP SCH (23:08)
[2019-09-09] MEDS: methylPREDNISolone SOD SUCCI 125 MG/2 ML VIAL IV SCH (23:10)
[2019-09-10] MEDS: METOCLOPRAMIDE 5 MG/ML 2 ML VIAL IVP SCH ×4 (05:55→17:00)
[2019-09-10] MEDS: methylPREDNISolone SOD SUCCI 125 MG/2 ML VIAL IV SCH (05:56)
[2019-09-10] MEDS: MORPHINE SULFATE 2 MG/ML SYRINGE IVP PRN ×3 (06:13→20:11)
[2019-09-10 06:20] LABS: HCT 45.2 % (39.0-53.0); HGB 14.9 gm/dL (13.0-17.5); MCHC 32.9 g/dL (31.0-37.0); MCV 100.5 fL (80.0-100.0); Macrocytosis Slight; Mean Platelet Volume 7.9; Platelet Count 210 k/uL (150-450); RDW 14.5 % (11.5-15.5); WBC 12.8 k/uL (3.8-10.6)
[2019-09-10 06:24] LABS: Glucose,Whole Blood 142 mg/dL (75-99)
[2019-09-10 06:30] LABS: ALT 669 U/L (4-49); AST 504 U/L (17-59); African American GFR (CKD) >90 (>60 ml/min/1.73 sqM); Albumin 3.5 g/dL (3.5-5.0); Alkaline Phosphatase 123 U/L (38-126); Anion Gap 5 mmol/L; Blood Urea Nitrogen 18 mg/dL (9-20); Calcium 8.9 mg/dL (8.4-10.2); Carbon Dioxide 30 mmol/L (22-30); Chloride 99 mmol/L (98-107); Glucose 140 mg/dL (74-99); Non-African American GFR(CKD) >90 (>60 ml/min/1.73 sqM); Potassium 4.9 mmol/L (3.5-5.1); Sodium 134 mmol/L (137-145); Total Bilirubin 0.9 mg/dL (0.2-1.3)
[2019-09-10] MEDS: IPRATROPIUM-ALBUTEROL 3 ML NEB INHALATION SCH ×4 (07:27→18:34)
[2019-09-10] MEDS: methocarbamoL 750 MG TAB PO SCH ×3 (07:46→21:33)
[2019-09-10] MEDS: INSULIN ASPART (NovoLOG) 100 UNIT/ML VIAL SQ SCH ×4 (07:46→21:25)
[2019-09-10] MEDS: PANTOPRAZOLE 40 MG TABLET PO SCH (07:46)
[2019-09-10 07:52] VITALS: RESP 16
[2019-09-10] MEDS: SYMBICORT 80-4.5 MCG INHALER INHALATION SCH ×2 (07:55→18:35)
[2019-09-10] MEDS ORDERED: NON FORMULARY DRUG (Umeclidinium Bromide [Incruse Ellipta] 1 PUFF) INHALATION SCH (08:00)
[2019-09-10 11:42] LABS: Glucose,Whole Blood 125 mg/dL (75-99)
--- NOTE | 2019-09-10 12:05 | P.CNPUL ---
History of Present Illness Consult date: 09/10/19 Reason for consult: dyspnea History of present illness: This is a 74-year-old male patient who is being seen in the observation unit because of shortness of breath. The patient is known to me. The patient is known to have COPD with a baseline FEV1 of 41% of predicted and the patient has chronic right hemidiaphragmatic paralysis. Nevertheless, he started experiencing shortness of breath after an abdominal surgery during which the patient underwent a robotic-assisted laparoscopic sigmoid colectomy and mobilization of the splenic flexure regarding a colonic/sigmoid stricture from recurrent diverticulitis. Since then, the patient is been experiencing fullness in his upper abdomen which is causing him to get short of breath. He sometimes has to gag and make himself vomit to get some relief. He does not feel food nitidus passing adequately down his got and he gets bloated and distended easily. He has still some occasional bowel movements. Nevertheless, he is not fully recovered in terms of his gastrointestinal symptoms following his surgery. I saw him in the office approximately 3 weeks ago. I was not sure that the patient had a exacerbation of his COPD. I repeated spirometry and his FEV1 was compatible which is north of 41%. I repeated the chest x-ray that showed no acute abnormalities. I added Incruse to be used with Advair and I give the patient prednisone burst taper. Nevertheless, the patient did not have any significant improvement. He came into the emergency department and he was admitted to the hospital for the same. A CAT scan of the abdomen was done in the emergency department and it showed some elevation of the right hemidiaphragm and a small right-sided pleural effusion and some atelectatic changes in lung bases. Noted the patient undergone a previous right diaphragmatic plication. The patient is post cholecystectomy. The patient had normal pancreas and spleen. The patient had fecal stasis throughout the large bowel. The small bowel was quite deflated. There was fluid filled loops and fecal debris's throughout the colon. Lung bases are essentially clear other than some limited atelectasis. No cough. No sputum production. No chest tightness. No wheezing. Review of Systems Constitutional Constitutional: no fever, no night sweats, no significant weight gain, no significant weight loss, no exercise intolerance Eyes Eyes: no dry eyes, no vision change, no irritation ENMT Ears: no difficulty hearing, no ear pain Nose: no frequent nosebleeds, no nose problems, no sinus problems Mouth/Throat: no sore throat, no bleeding gums, no snoring, no dry mouth, no mouth ulcers, no oral abnormalities, no teeth problems Cardiovascular Cardiovascular: no chest pain, no arm pain on exertion, no shortness of breath when lying down, no palpitations, no known heart murmur, shortness of breath when walking Respiratory Respiratory: no cough, no wheezing, no coughing up blood, no sleep apnea, shortness of breath Gastrointestinal Gastrointestinal: Abdominal fullness and distention especially after having food material. Genitourinary Genitourinary: no incontinence, no difficulty urinating, no hematuria, no increased frequency Musculoskeletal Musculoskeletal: no muscle aches, no muscle weakness, no arthralgias/joint pain, no back pain, no swelling in the extremities Integumentary Skin: no abnormal mole, no jaundice, no rashes, no laceration Neurologic Neurologic: no loss of consciousness, no weakness, no numbness, no seizures, no dizziness, no migraines, no headaches, no tremor Psychiatric Psych: no depression, no sleep disturbances, feeling safe in a relationship, no alcohol abuse, no anxiety, no hallucinations, no suicidal thoughts Endocrine Endocrine: fatigue Hematologic/Lymphatic Hematologic/Lymphatic no swollen glands, no bruising, no excessive bleeding Allergic/Immunologic Allergy/Immunologic: no runny nose, no sinus pressure, no itching, no hives, no frequent sneezing Past Medical History Past Medical History: Cancer, COPD, GERD/Reflux, GI Bleed Additional Past Medical History / Comment(s): Other hx: COPD, history of right hemidiaphragmatic paralysis post plication, Bladder cancer with BCG and tumor removal, R testicular cancer with orchiectomy/radiation, chronic back and cervical pain, frequent debilitating migraines, bilateral sciatica, upper GI bleeds, hiatal hernia, gastritis, Diego's palsy, 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 Last Myocardial Infarction Date:: 05/25/14 History of Any Multi-Drug Resistant Organisms: None Reported Past Surgical History: Adenoidectomy, Appendectomy, Back Surgery, Cholecystectomy, Heart Catheterization, Hernia Repair, Orthopedic Surgery, Tonsillectomy Additional Past Surgical History / Comment(s): 08/03/15 EGD colonoscopy,l cardiac cath, several back sx including laminectomy, spinous process removed T11 and T12/cage and arturo, bilateral arthroscopic knee surgeries, left thumb surgeries with rt one having titanium joint, L rotator cuff repair, several nasal polypectomies, RFA cervical/back, R/L inguinal hernia repairs, rt orchiectomy; diaphragmatic hernia repair 03/2019 section of sigmoid colon removed. Past Anesthesia/Blood Transfusion Reactions: No Reported Reaction Past Psychological History: Depression Additional Psychological History / Comment(s): Patient resides with his spouse of 55 yrs. He has chronic pain and debilitating migraines. He has a cane and walker which he uses prn. He has falls. He drives some but spouse does most of the driving. Spouse works afternoons at [employer] in patient check in/previous MRI. Smoking Status: Former smoker Past Alcohol Use History: None Reported Additional Past Alcohol Use History / Comment(s): Pt started smoking in 1959 and quit cigarettes in 2003, smoked 1 1/2ppd Past Drug Use History: None Reported - Past Family History Father Family Medical History: Cancer Additional Family Medical History / Comment(s): Father of stomach ca at the age of 65 yrs. Mother Family Medical History: No Reported History Additional Family Medical History / Comment(s): Mother of "old age". She was 83 yrs old Brother(s) Family Medical History: Diabetes Mellitus Additional Family Medical History / Comment(s): brain tumor Sister(s) Family Medical History: Diabetes Mellitus Additional Family Medical History / Comment(s): breast ca (sisters) Medications and Allergies Home Medications Medication Instructions Recorded Confirmed Type Omeprazole 40 mg PO DAILY 08/17/18 09/09/19 History Fluticasone/Salmeterol [Advair 1 puff INHALATION RT-BID 01/15/19 09/09/19 History 500-50 Diskus] Ipratropium-Albuterol Nebulize 3 ml INHALATION RT-QID 02/26/19 09/09/19 History [Duoneb 0.5 mg-3 mg/3 ml Soln] Albuterol Sulfate [Ventolin HFA] 2 puff INHALATION RT-QID PRN 09/09/19 09/09/19 History Methocarbamol [Robaxin-750] 750 mg PO TID 09/09/19 09/09/19 History Umeclidinium [place] [Incruse 1 puff INHALATION RT-DAILY 09/09/19 09/09/19 History Ellipta] predniSONE See Taper PO DAILY 09/09/19 09/09/19 History Allergies Allergy/AdvReac Type Severity Reaction Status Date / Time chocolate flavor Allergy TRIGGERS Verified 09/09/19 13:13 MIGRAINE Iodinated Contrast Media Allergy Anaphylaxis Verified 09/09/19 13:13 [Iodinated Contrast Media - IV Dye] iodine Allergy Anaphylaxis Verified 09/09/19 13:13 peanut Allergy TRIGGERS Verified 09/09/19 13:13 MIGRAINES Penicillins Allergy Anaphylaxis Verified 09/09/19 13:13 Sulfa (Sulfonamide Allergy Anaphylaxis Verified 09/09/19 13:13 Antibiotics) fentanyl AdvReac Severe SEVERE Verified 09/09/19 13:13 MIGRAINES adhesive AdvReac tears skin Verified 09/09/19 13:13 banana AdvReac HEADACHE Verified 09/09/19 13:13 gabapentin AdvReac Confusion Verified 09/09/19 13:13 tree nut [Nut] AdvReac HEADACHE Verified 09/09/19 13:13 yellow dye AdvReac HEADACHE Verified 09/09/19 13:13 OPIODS AdvReac Severe MIGRAINES Uncoded 09/09/19 13:13 Physical Exam Vitals: Vital Signs Temp Pulse Pulse Pulse Resp BP BP 09/10/19 11:12 80 09/10/19 11:00 76 09/10/19 07:48 97.5 F L 72 78 16 141/69 09/10/19 07:28 72 09/10/19 04:00 97.3 F L 59 L 18 107/57 09/10/19 00:00 97.4 F L 89 20 131/82 09/09/19 20:00 97.6 F 104 H 18 149/81 09/09/19 19:43 70 09/09/19 19:31 68 09/09/19 16:23 88 18 131/89 09/09/19 15:08 87 18 142/84 09/09/19 12:33 70 09/09/19 12:22 70 Pulse Ox 09/10/19 11:12 09/10/19 11:00 09/10/19 07:48 93 L 09/10/19 07:28 09/10/19 04:00 93 L 09/10/19 00:00 94 L 09/09/19 20:00 96 09/09/19 19:43 09/09/19 19:31 09/09/19 16:23 95 09/09/19 15:08 96 09/09/19 12:33 09/09/19 12:22 Intake and Output 09/09/19 09/10/19 09/10/19 22:59 06:59 14:59 Intake Total 240 Balance 240 Intake: Oral 240 Other: Voiding Method Toilet Toilet Toilet # Voids 1 1 Weight 68.039 kg General Appearance no diaphoresis, no respiratory distress, speech not interrupted by breaths, no dyspnea, no pallor, not cachectic, well nourished, appears ill HEENT no pursed lip breathing, no jugular venous distention, no mucous membrane cyanosis, no perioral cyanosis, mallampati classification: class 1, Mallampati Classification: Class 3 Chest no barrel chest, no retractions, no sternocleidomastoid muscle contractions, no supraclavicular retractions, no intercostal retractions, no prolonged expiratory wheezing, no decreased air movement, no rhonchi, no hyperinflation, (normal) adventitious sounds: rales / crackles: bilaterally: midlung castellanos, decreased air movement (diminished in the right lung base) Heart no right ventricular heave, no distant heart sounds, no s3 gallop, (normal) jugular vein: jugular venous distention: by 0cm, (normal) jugular vein Abdominal exam revealed normal bowel sounds. The abdomen was soft, non-tender, and without masses, organomegaly, or appreciable enlargement of the abdominal aorta. There is some mild distention. No direct tenderness. No rebound tensile guarding. No organomegaly. Extremities no cyanosis, no clubbing, no edema Neurologic no decreased mental status, no somnolence, no confusion Assisstive Devices: ambulates with no assitive devices Gait and Mobility: gait WNL, full weight bearing Examination of the skin revealed no evidence of significant rashes, suspicious appearing nevi or other concerning lesions. Results - Laboratory Findings CBC and BMP: 09/10/19 05:37 09/10/19 05:37 PT/INR, D-dimer PT 9.6 sec (9.0-12.0) 09/09/19 11:56 INR 0.9 (<1.2) 09/09/19 11:56 D-Dimer 0.60 mg/L FEU (<0.60) H 09/09/19 11:56 Abnormal lab findings: Abnormal Labs 09/09/19 09/09/19 09/09/19 11:56 11:56 11:56 WBC 12.4 H MCV Neutrophils # 9.6 H D-Dimer 0.60 H Sodium 135 L Creatinine Glucose POC Glucose (mg/dL) AST ALT 71 H Total Protein 09/10/19 09/10/19 09/10/19 05:37 05:37 06:22 WBC 12.8 H MCV 100.5 H Neutrophils # D-Dimer Sodium 134 L Creatinine 0.61 L Glucose 140 H POC Glucose (mg/dL) 142 H AST 504 H ALT 669 H Total Protein 6.0 L 09/10/19 11:38 WBC MCV Neutrophils # D-Dimer Sodium Creatinine Glucose POC Glucose (mg/dL) 125 H AST ALT Total Protein Assessment and Plan Plan: 1 shortness of breath. The patient's shortness of breath is most likely in association with abdominal distention and fullness and bloating that he is experiencing following food intake. He is known to have COPD. His COPD is currently inactive in stable and his FEV1 as measured in the office is 41% of predicted and is pretty much comparable to his previous spirometry there was not years back. His chest x-ray is not showing any acute abnormalities. There is some elevation of the right hemidiaphragm as the patient has had previous plication for right hemidiaphragmatic paralysis. He is on good coverage with a combination of Advair and Incruse and he has completed a prednisone burst taper without much improvement. I reviewed the CAT scan of the abdomen and there is significant fecal stasis in the large and small bowel. Consider ongoing stricture or bowel motility issues contiguity to this patient's increased shortness of breath which is mainly postprandial. 2 COPD and was seated stable 3 history of a diaphragmatic paralysis post plication 4 history of bladder cancer post resection and post BCG treatment 5 history of testicular cancer post-orchiectomy 6 chronic back pain 7 history of recurrent diverticulitis [place] by development of a sigmoid str icture post colectomy and mobilization of the splenic flexure. This surgery was done for strictures of the sigmoid colon. 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 His COPD despite being severe but stable for now and is not any worse than what it was a year ago. No signs of acute respiratory insufficiency or decompensation. He is probably is a probably related to his fecal stasis and diminished bowel activity as the patient is experiencing abdominal distention and fullness and shortness of breath postprandial. CAT scan of the abdomen was noted. A surgical evaluation will be needed. May benefit from another colonoscopy/EGD to evaluate these symptoms. I will suggest discontinuing his IV Solu-Medrol. The patient just completed prednisone burst taper without any much benefit. Continue Advair and Incruse on outpatient basis. Consider bowel motility agents, laxatives, enema and this will be left up to the general surgeon to decide.
[2019-09-10] MEDS ORDERED: MAGNESIUM HYDROXIDE 2,400 MG/10 ML CUP PO ONE (12:25)
--- NOTE | 2019-09-10 13:19 | P.GSCN ---
History of Present Illness Consult date: 09/10/19 Reason for Consult: abdominal distention, constipation Requesting physician: Bharath Medrano History of present illness: CHIEF COMPLAINT: Abdominal distention, fecal stasis HISTORY OF PRESENT ILLNESS: 74 year old male who presented to the ER with a chief complaint of abdominal pain. The patient does have a history of a robotic sigmoid colectomy secondary to sigmoid stricture due to diverticulitis with Dr. Padilla on 04/10/2019. Patient is a long-standing history of constipation. He states he takes 2 Dulcolax tablets in the morning, a couple stool softeners a couple hours later, and then a dose of MiraLAX daily. Patient reports having a small bowel movement yesterday but states prior to that he has not had a bowel movement in over a week. He is passing a small amount of flatus. He states after eating he feels full and bloated and becomes short of breath. He denies nausea or vomiting but states he has made himself throw up on occasion to relieve the bloated feeling after eating. PAST MEDICAL HISTORY: See list. PAST SURGICAL HISTORY: See list. MEDICATIONS: See list. ALLERGIES: See list. SOCIAL HISTORY: No illicit drug use. History of nicotine dependence. Quit smoking 2003. REVIEW OF SYSTEMS: CONSTITUTIONAL: Denies fever or chills. HEENT: Denies blurred vision, vision changes, or eye pain. Denies hemoptysis ENDOCRINE: Denies heat or cold intolerance. CARDIOVASCULAR: Denies chest pain or pressure. RESPIRATORY: Reports shortness of breath. GASTROINTESTINAL: See HPI for pertinent findings. NEURO: Denies history of seizures. PSYCH: History of depression. No suicidal ideation HEMATOLOGIC: Denies bleeding disorders. LYMPHATIC: The patient denies any lumps and bumps around the neck. GENITOURINARY: Denies any blood in urine or increased urinary frequency. MUSCULOSKELETAL: Denies myalgias. Denies joint swelling. Denies decreased range of motion beyond patients baseline. SKIN: Denies pruitis. Denies rash. PHYSICAL EXAM: VITAL SIGNS: Reviewed GENERAL: Well-developed in no acute distress. HEENT: No sclera icterus. Extraocular movements grossly intact. Moist buccal mucosa. Head is atraumatic, normocephalic. Hears conversational speech. No nasal drainage. NECK: Supple without lymphadenopathy. CHEST: Non-labored respirations and equal bilateral excursions. CARDIOVASCULAR: Regular rate with regular rhythm. Palpable 2+ radial pulses. ABDOMEN: Soft. Distended. Mild tenderness with palpation. MUSCULOSKELETAL: No clubbing or cyanosis. NEUROLOGIC: No focal or lateralizing signs. Cranial nerves II through XII grossly intact. PSYCH: Appropriate affect. Alert and oriented to person, place and time. SKIN: Well perfused. Good skin turgor. LABORATORY DATA: WBC 12.8. Hemoglobin 14.9. Platelet count 210. AST 504. Yesterday 41. ALT 669. Yesterday 71. IMAGING: CT abdomen and pelvis: Retained fecal debris present throughout distribution of colon ASSESSMENT: 1. Abdominal pain 2. Fecal stasis 3. History of sigmoid colectomy secondary to sigmoid stricture due to diverticulitis 4. Transaminitis 5. History of cholecystectomy PLAN: -Full liquid diet -Milk of mag, lactulose, and Reglan scheduled -Consult GI for elevated LFTs -Further recommendations pending patients clinical course Nurse practitioner note has been reviewed by physician. Signing provider agrees with the documented findings, assessment, and plan of care. 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 Last Myocardial Infarction Date:: 05/25/14 History of Any Multi-Drug Resistant Organisms: None Reported Past Surgical History: Adenoidectomy, Appendectomy, Back Surgery, Cholecystectomy, Heart Catheterization, Hernia Repair, Orthopedic Surgery, Tonsillectomy Additional Past Surgical History / Comment(s): 08/03/15 EGD colonoscopy,l cardiac cath, several back sx including laminectomy, spinous process removed T11 and T12/cage and arturo, bilateral arthroscopic knee surgeries, left thumb surgeries with rt one having titanium joint, L rotator cuff repair, several nasal polypectomies, RFA cervical/back, R/L inguinal hernia repairs, rt orchiectomy; diaphragmatic hernia repair 03/2019 section of sigmoid colon removed. Past Anesthesia/Blood Transfusion Reactions: No Reported Reaction Past Psychological History: Depression Additional Psychological History / Comment(s): Patient resides with his spouse of 55 yrs. He has chronic pain and debilitating migraines. He has a cane and walker which he uses prn. He has falls. He drives some but spouse does most of the driving. Spouse works afternoons at [employer] in patient check in/previous MRI. Smoking Status: Former smoker Past Alcohol Use History: None Reported Additional Past Alcohol Use History / Comment(s): Pt started smoking in 1959 and quit cigarettes in 2003, smoked 1 1/2ppd Past Drug Use History: None Reported - Past Family History Father Family Medical History: Cancer Additional Family Medical History / Comment(s): Father of stomach ca at the age of 65 yrs. Mother Family Medical History: No Reported History Additional Family Medical History / Comment(s): Mother of "old age". She was 83 yrs old Brother(s) Family Medical History: Diabetes Mellitus Additional Family Medical History / Comment(s): brain tumor Sister(s) Family Medical History: Diabetes Mellitus Additional Family Medical History / Comment(s): breast ca (sisters) Medications and Allergies Home Medications Medication Instructions Recorded Confirmed Type Omeprazole 40 mg PO DAILY 08/17/18 09/09/19 History Fluticasone/Salmeterol [Advair 1 puff INHALATION RT-BID 01/15/19 09/09/19 History 500-50 Diskus] Ipratropium-Albuterol Nebulize 3 ml INHALATION RT-QID 02/26/19 09/09/19 History [Duoneb 0.5 mg-3 mg/3 ml Soln] Albuterol Sulfate [Ventolin HFA] 2 puff INHALATION RT-QID PRN 09/09/19 09/09/19 History Methocarbamol [Robaxin-750] 750 mg PO TID 09/09/19 09/09/19 History Umeclidinium Sunman [Incruse 1 puff INHALATION RT-DAILY 09/09/19 09/09/19 History Ellipta] predniSONE See Taper PO DAILY 09/09/19 09/09/19 History Allergies Allergy/AdvReac Type Severity Reaction Status Date / Time chocolate flavor Allergy TRIGGERS Verified 09/09/19 13:13 MIGRAINE Iodinated Contrast Media Allergy Anaphylaxis Verified 09/09/19 13:13 [Iodinated Contrast Media - IV Dye] iodine Allergy Anaphylaxis Verified 09/09/19 13:13 peanut Allergy TRIGGERS Verified 09/09/19 13:13 MIGRAINES Penicillins Allergy Anaphylaxis Verified 09/09/19 13:13 Sulfa (Sulfonamide Allergy Anaphylaxis Verified 09/09/19 13:13 Antibiotics) fentanyl AdvReac Severe SEVERE Verified 09/09/19 13:13 MIGRAINES adhesive AdvReac tears skin Verified 09/09/19 13:13 banana AdvReac HEADACHE Verified 09/09/19 13:13 gabapentin AdvReac Confusion Verified 09/09/19 13:13 tree nut [Nut] AdvReac HEADACHE Verified 09/09/19 13:13 yellow dye AdvReac HEADACHE Verified 09/09/19 13:13 OPIODS AdvReac Severe MIGRAINES Uncoded 09/09/19 13:13 Surgical - Exam Vital Signs Temp Pulse Resp BP Pulse Ox 97.8 F 76 18 126/87 97 09/09/19 10:56 09/09/19 10:56 09/09/19 10:56 09/09/19 10:56 09/09/19 10:56 Results - Labs 09/10/19 05:37 09/10/19 05:37 Abnormal Lab Results - Last 24 Hours (Table) 09/09/19 09/10/19 09/10/19 Range/Units 11:56 05:37 05:37 WBC 12.8 H (3.8-10.6) k/uL MCV 100.5 H (80.0-100.0) fL D-Dimer 0.60 H (<0.60) mg/L FEU Sodium 134 L (137-145) mmol/L Creatinine 0.61 L (0.66-1.25) mg/dL Glucose 140 H (74-99) mg/dL POC Glucose (mg/dL) (75-99) mg/dL AST 504 H (17-59) U/L ALT 669 H (4-49) U/L Total Protein 6.0 L (6.3-8.2) g/dL 09/10/19 09/10/19 Range/Units 06:22 11:38 WBC (3.8-10.6) k/uL MCV (80.0-100.0) fL D-Dimer (<0.60) mg/L FEU Sodium (137-145) mmol/L Creatinine (0.66-1.25) mg/dL Glucose (74-99) mg/dL POC Glucose (mg/dL) 142 H 125 H (75-99) mg/dL AST (17-59) U/L ALT (4-49) U/L Total Protein (6.3-8.2) g/dL Diabetes panel 09/10/19 Range/Units 05:37 Sodium 134 L (137-145) mmol/L Potassium 4.9 (3.5-5.1) mmol/L Chloride 99 (98-107) mmol/L Carbon Dioxide 30 (22-30) mmol/L BUN 18 (9-20) mg/dL Creatinine 0.61 L (0.66-1.25) mg/dL Glucose 140 H (74-99) mg/dL Calcium 8.9 (8.4-10.2) mg/dL AST 504 H (17-59) U/L ALT 669 H (4-49) U/L Alkaline Phosphatase 123 (38-126) U/L Total Protein 6.0 L (6.3-8.2) g/dL Albumin 3.5 (3.5-5.0) g/dL Calcium panel 09/10/19 Range/Units 05:37 Calcium 8.9 (8.4-10.2) mg/dL Albumin 3.5 (3.5-5.0) g/dL Pituitary panel 09/10/19 Range/Units 05:37 Sodium 134 L (137-145) mmol/L Potassium 4.9 (3.5-5.1) mmol/L Chloride 99 (98-107) mmol/L Carbon Dioxide 30 (22-30) mmol/L BUN 18 (9-20) mg/dL Creatinine 0.61 L (0.66-1.25) mg/dL Glucose 140 H (74-99) mg/dL Calcium 8.9 (8.4-10.2) mg/dL Adrenal panel 09/10/19 Range/Units 05:37 Sodium 134 L (137-145) mmol/L Potassium 4.9 (3.5-5.1) mmol/L Chloride 99 (98-107) mmol/L Carbon Dioxide 30 (22-30) mmol/L BUN 18 (9-20) mg/dL Creatinine 0.61 L (0.66-1.25) mg/dL Glucose 140 H (74-99) mg/dL Calcium 8.9 (8.4-10.2) mg/dL Total Bilirubin 0.9 (0.2-1.3) mg/dL AST 504 H (17-59) U/L ALT 669 H (4-49) U/L Alkaline Phosphatase 123 (38-126) U/L Total Protein 6.0 L (6.3-8.2) g/dL Albumin 3.5 (3.5-5.0) g/dL
[2019-09-10] MEDS: LACTULOSE 20 GM/30 ML CUP PO SCH ×3 (13:29→21:34)
--- NOTE | 2019-09-10 13:44 | P.PN ---
Subjective Progress Note Date: 09/17/19 Principal diagnosis: Constipation with COPD exacerbation. This is a continue progress on a 74-year-old whitand element of constipat. He is has appropriate bowel movement this morning and appetite seems to be nominal. Objective - Vital Signs Vital signs: Vital Signs Temp 97.5 F L 09/10/19 07:48 Pulse 80 09/10/19 11:12 Resp 16 09/10/19 07:48 BP 141/69 09/10/19 07:48 Pulse Ox 93 L 09/10/19 07:48 Intake & Output 09/09/19 09/10/19 09/10/19 18:59 06:59 18:59 Intake Total 480 Balance 480 Weight 68.039 kg Intake: Oral 480 Other: Voiding Method Toilet Toilet # Voids 1 1 - Constitutional General appearance: Present: thin - EENT Eyes: Absent: abnormal pupil - Neck Neck: Absent: lymphadenopathy Thyroid: bilateral: normal size - Respiratory Respiratory: bilateral: CTA - Cardiovascular Rhythm: regular Heart sounds: normal: S1, S2 Abnormal Heart Sounds: Absent: S3 Gallop - Gastrointestinal General gastrointestinal: Present: soft. Absent: tenderness - Psychiatric Psychiatric: Present: A&O x's 3, appropriate affect - Labs CBC & Chem 7: 09/10/19 05:37 09/10/19 05:37 Labs: Abnormal Lab Results - Last 24 Hours (Table) 09/09/19 09/10/19 09/10/19 Range/Units 11:56 05:37 05:37 WBC 12.8 H (3.8-10.6) k/uL MCV 100.5 H (80.0-100.0) fL D-Dimer 0.60 H (<0.60) mg/L FEU Sodium 134 L (137-145) mmol/L Creatinine 0.61 L (0.66-1.25) mg/dL Glucose 140 H (74-99) mg/dL POC Glucose (mg/dL) (75-99) mg/dL AST 504 H (17-59) U/L ALT 669 H (4-49) U/L Total Protein 6.0 L (6.3-8.2) g/dL 09/10/19 09/10/19 Range/Units 06:22 11:38 WBC (3.8-10.6) k/uL MCV (80.0-100.0) fL D-Dimer (<0.60) mg/L FEU Sodium (137-145) mmol/L Creatinine (0.66-1.25) mg/dL Glucose (74-99) mg/dL POC Glucose (mg/dL) 142 H 125 H (75-99) mg/dL AST (17-59) U/L ALT (4-49) U/L Total Protein (6.3-8.2) g/dL Assessment and Plan (1) COPD exacerbation Current Visit: Yes Status: Acute Code(s): J44.1 - CHRONIC OBSTRUCTIVE PULMONARY DISEASE W (ACUTE) EXACERBATION SNOMED Code(s): 185567889 (2) Constipation Current Visit: Yes Status: Acute Code(s): K59.00 - CONSTIPATION, UNSPECIFIED SNOMED Code(s): 25723455 (3) Abdominal pain Current Visit: No Status: Acute Code(s): R10.9 - UNSPECIFIED ABDOMINAL PAIN SNOMED Code(s): 32555560 (4) At risk for readmission to hospital Current Visit: No Status: Acute Code(s): Z91.89 - OTH PERSONAL RISK FACTORS, NOT ELSEWHERE CLASSIFIED SNOMED Code(s): 3274731913191 (5) Headache Current Visit: No Status: Acute Code(s): R51 - HEADACHE SNOMED Code(s): 59906541 (6) S/P colon resection Current Visit: No Status: Acute Code(s): Z90.49 - ACQUIRED ABSENCE OF OTHER SPECIFIED PARTS OF DIGESTIVE TRACT SNOMED Code(s): 201490809 Plan: We'll going consult pulmonology and Dr. Bishop for general surgery touch base. Check CBC and CMP in a.m. . The patient is a full code at this time. See orders otherwise. Time with Patient: Greater than 30
[2019-09-10 16:48] LABS: Glucose,Whole Blood 165 mg/dL (75-99)
[2019-09-10 21:17] LABS: Glucose,Whole Blood 135 mg/dL (75-99)
[2019-09-11] MEDS: METOCLOPRAMIDE 5 MG/ML 2 ML VIAL IVP SCH ×4 (00:01→14:48)
[2019-09-11 06:42] LABS: Basophils % (A) 0 %; Eosinophils % (A) 0 %; HCT 43.7 % (39.0-53.0); HGB 14.4 gm/dL (13.0-17.5); Lymphocytes # (A) 0.8 k/uL (1.0-4.8); Lymphocytes % (A) 5 %; MCH 33.2 pg (25.0-35.0); MCHC 32.9 g/dL (31.0-37.0); MCV 100.8 fL (80.0-100.0); Macrocytosis Slight; Mean Platelet Volume 8.1; Monocytes % (A) 6 %; Neutrophils # (A) 14.2 k/uL (1.3-7.7); Neutrophils % (A) 88 %; Platelet Count 192 k/uL (150-450); RBC 4.34 m/uL (4.30-5.90); RDW 14.7 % (11.5-15.5); WBC 16.2 k/uL (3.8-10.6)
[2019-09-11 06:55] LABS: ALT 476 U/L (4-49); AST 160 U/L (17-59); African American GFR (CKD) >90 (>60 ml/min/1.73 sqM); Albumin 3.3 g/dL (3.5-5.0); Alkaline Phosphatase 104 U/L (38-126); Anion Gap 3 mmol/L; Blood Urea Nitrogen 19 mg/dL (9-20); Calcium 8.8 mg/dL (8.4-10.2); Carbon Dioxide 34 mmol/L (22-30); Chloride 99 mmol/L (98-107); Glucose 104 mg/dL (74-99); Non-African American GFR(CKD) >90 (>60 ml/min/1.73 sqM); Potassium 4.5 mmol/L (3.5-5.1); Sodium 136 mmol/L (137-145); Total Bilirubin 0.8 mg/dL (0.2-1.3); Total Protein 5.5 g/dL (6.3-8.2)
[2019-09-11] MEDS: SYMBICORT 80-4.5 MCG INHALER INHALATION SCH ×2 (07:36→19:58)
[2019-09-11] MEDS: IPRATROPIUM-ALBUTEROL 3 ML NEB INHALATION SCH ×4 (07:36→19:58)
--- NOTE | 2019-09-11 08:36 | US ---
EXAMINATION TYPE: US liver DATE OF EXAM: 09/11/2019 COMPARISON: NONE CLINICAL HISTORY: transaminitis. Patient has history of bowel surgery and has history of constipation , patient has had diarrhea all night after drinking prep to release bowels, abn labs EXAM MEASUREMENTS: Liver Length: unable to assess Gallbladder Wall: unable to assess CBD: unable to assess Right Kidney: 9.8 x 4.5 x 6.0 cm very limited study Pancreas: limited views appear wnl Liver: very limited portions of left lobe obtain, multiple attempts at imaging right lobe was unsucc essful due to reasons stated above. Gallbladder: unable to assess Evidence for sonographic Moscoso's sign: no CBD: unable to assess Right Kidney: wnl IMPRESSION: 1. Nondiagnostic ultrasound
--- NOTE | 2019-09-11 08:50 | P.PN ---
Subjective Principal diagnosis: Constipation with COPD exacerbation. This is a continue progress on a 74-year-old whitand element of constipat. The patient states better gastric emptying with flatus. Appreciate multiple consultants input. The patient has elevation of liver function tests and is awaiting liver ultrasound today. Again, appreciate surgical input. No jaundice is noted. Objective - Vital Signs Vital signs: Vital Signs Temp 97.4 F L 09/11/19 04:35 Pulse 68 09/11/19 07:47 Resp 16 09/11/19 04:35 BP 117/66 09/11/19 04:35 Pulse Ox 93 L 09/11/19 07:36 Intake & Output 09/10/19 09/11/19 09/11/19 18:59 06:59 18:59 Intake Total 480 Balance 480 Intake: Oral 480 Other: Voiding Method Toilet Toilet # Voids 1 # Bowel Movements 1 - Constitutional General appearance: Present: thin - EENT Eyes: Absent: abnormal pupil - Neck Neck: Absent: lymphadenopathy - Respiratory Respiratory: bilateral: CTA - Cardiovascular Rhythm: regular Heart sounds: normal: S1, S2 Abnormal Heart Sounds: Absent: S3 Gallop - Gastrointestinal General gastrointestinal: Present: soft. Absent: tenderness - Integumentary Integumentary: Absent: cellulitis - Neurologic Neurologic: Present: CNII-XII intact - Labs CBC & Chem 7: 09/11/19 06:23 09/11/19 06:23 Labs: Abnormal Lab Results - Last 24 Hours (Table) 09/10/19 09/10/19 09/10/19 Range/Units 11:38 16:47 21:16 WBC (3.8-10.6) k/uL MCV (80.0-100.0) fL Neutrophils # (1.3-7.7) k/uL Lymphocytes # (1.0-4.8) k/uL Sodium (137-145) mmol/L Carbon Dioxide (22-30) mmol/L Glucose (74-99) mg/dL POC Glucose (mg/dL) 125 H 165 H 135 H (75-99) mg/dL AST (17-59) U/L ALT (4-49) U/L Total Protein (6.3-8.2) g/dL Albumin (3.5-5.0) g/dL 09/11/19 09/11/19 Range/Units 06:23 06:23 WBC 16.2 H (3.8-10.6) k/uL MCV 100.8 H (80.0-100.0) fL Neutrophils # 14.2 H (1.3-7.7) k/uL Lymphocytes # 0.8 L (1.0-4.8) k/uL Sodium 136 L (137-145) mmol/L Carbon Dioxide 34 H (22-30) mmol/L Glucose 104 H (74-99) mg/dL POC Glucose (mg/dL) (75-99) mg/dL AST 160 H (17-59) U/L ALT 476 H (4-49) U/L Total Protein 5.5 L (6.3-8.2) g/dL Albumin 3.3 L (3.5-5.0) g/dL Microbiology - Last 24 Hours (Table) 09/09/19 11:56 Blood Culture - Preliminary Blood No Growth after 24 hours Assessment and Plan (1) COPD exacerbation Current Visit: Yes Status: Acute Code(s): J44.1 - CHRONIC OBSTRUCTIVE PULMONARY DISEASE W (ACUTE) EXACERBATION SNOMED Code(s): 109606298 (2) Constipation Current Visit: Yes Status: Acute Code(s): K59.00 - CONSTIPATION, UNSPECIFIED SNOMED Code(s): 86089378 (3) Abdominal pain Current Visit: No Status: Acute Code(s): R10.9 - UNSPECIFIED ABDOMINAL PAIN SNOMED Code(s): 53261144 (4) At risk for readmission to hospital Current Visit: No Status: Acute Code(s): Z91.89 - OTH PERSONAL RISK FACTORS, NOT ELSEWHERE CLASSIFIED SNOMED Code(s): 9136077270300 (5) Headache Current Visit: No Status: Acute Code(s): R51 - HEADACHE SNOMED Code(s): 21910532 (6) S/P colon resection Current Visit: No Status: Acute Code(s): Z90.49 - ACQUIRED ABSENCE OF OTHER SPECIFIED PARTS OF DIGESTIVE TRACT SNOMED Code(s): 860103494 Plan: We'll going consult pulmonology and Dr. Bishop for general surgery touch base. The patient is a full code at this time. See orders otherwise. Await liver ultrasound. Advance diet when cleared by surgery.
[2019-09-11] MEDS ORDERED: MAGNESIUM HYDROXIDE 2,400 MG/10 ML CUP PO SCH (09:00)
[2019-09-11] MEDS: LACTULOSE 20 GM/30 ML CUP PO SCH ×2 (09:17→17:06)
[2019-09-11] MEDS: methocarbamoL 750 MG TAB PO SCH ×2 (09:28→17:20)
[2019-09-11] MEDS: PANTOPRAZOLE 40 MG TABLET PO SCH (09:28)
[2019-09-11] MEDS: MORPHINE SULFATE 2 MG/ML SYRINGE IVP PRN (09:29)
--- NOTE | 2019-09-11 11:05 | P.PN ---
Subjective Progress Note Date: 09/11/19 This is a 74-year-old male patient who is being seen in the observation unit because of shortness of breath. The patient is known to me. The patient is known to have COPD with a baseline FEV1 of 41% of predicted and the patient has chronic right hemidiaphragmatic paralysis. 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 Since then, the patient is been experiencing fullness in his upper abdomen which is causing him to get short of breath. He sometimes has to gag and make himself vomit to get some relief. He does not feel food nitidus passing adequately down his got and he gets bloated and distended easily. He has still some occasional bowel movements. Nevertheless, he is not fully recovered in terms of his gastrointestinal symptoms following his surgery. I saw him in the office approximately 3 weeks ago. I was not sure that the patient had a exacerbation of his COPD. I repeated spirometry and his FEV1 was compatible which is north of 41%. I repeated the chest x-ray that showed no acute abnormalities. I added Incruse to be used with Advair and I give the patient prednisone burst taper. Nevertheless, the patient did not have any significant improvement. He came into the emergency department and he was admitted to the hospital for the same. A CAT scan of the abdomen was done in the emergency department and it showed some elevation of the right hemidiaphragm and a small right-sided pleural effusion and some atelectatic changes in lung b ases. Noted the patient undergone a previous right diaphragmatic plication. The patient is post cholecystectomy. The patient had normal pancreas and spleen. The patient had fecal stasis throughout the large bowel. The small bowel was quite deflated. There was fluid filled loops and fecal debris's throughout the colon. Lung bases are essentially clear other than some limited atelectasis. No cough. No sputum production. No chest tightness. No wheezing. On 09/11/2019, the patient is being seen for a follow-up. Feeling better. Less short of breath. He was able to get laxatives a combination of lactulose and milk of magnesia and had several bowel movements. Obviously his abdomen is deflated and the patient is feeling better and less short of breath. Some abnormalities in the liver function test was also noted which is improving. Awaiting a surgical consultation regarding his chronic constipation and fecal retention. No other respiratory complaints for now. No cough or sputum production. No chest tightness. No wheezing. Objective - Vital Signs Vital signs: Vital Signs Temp 97.4 F L 09/11/19 09:14 Pulse 66 09/11/19 09:14 Resp 16 09/11/19 09:14 BP 158/83 09/11/19 09:14 Pulse Ox 98 09/11/19 09:14 Intake & Output 09/10/19 09/11/19 09/11/19 18:59 06:59 18:59 Intake Total 480 Balance 480 Intake: Oral 480 Other: Voiding Method Toilet Toilet Toilet # Voids 1 1 # Bowel Movements 1 - Exam General Appearance no diaphoresis, no respiratory distress, speech not interrupted by breaths, no dyspnea, no pallor, not cachectic, well nourished, appears ill HEENT no pursed lip breathing, no jugular venous distention, no mucous membrane cyanosis, no perioral cyanosis, mallampati classification: class 1, Mallampati Classification: Class 3 Chest no barrel chest, no retractions, no sternocleidomastoid muscle contractions, no supraclavicular retractions, no intercostal retractions, no prolonged expiratory wheezing, no decreased air movement, no rhonchi, no hyperinflation, (normal) adventitious sounds: rales / crackles: bilaterally: midlung castellanos, decreased air movement (diminished in the right lung base) Heart no right ventricular heave, no distant heart sounds, no s3 gallop, (normal) jugular vein: jugular venous distention: by 0cm, (normal) jugular vein Abdominal exam revealed normal bowel sounds. The abdomen was soft, non-tender, and without masses, organomegaly, or appreciable enlargement of the abdominal aorta. There is some mild distention. No direct tenderness. No rebound tensile guarding. No organomegaly. Extremities no cyanosis, no clubbing, no edema Neurologic no decreased mental status, no somnolence, no confusion Assisstive Devices: ambulates with no assitive devices Gait and Mobility: gait WNL, full weight bearing Examination of the skin revealed no evidence of significant rashes, suspicious appearing nevi or other concerning lesions. - Labs CBC & Chem 7: 09/11/19 06:23 09/11/19 06:23 Labs: Abnormal Lab Results - Last 24 Hours (Table) 09/10/19 09/10/19 09/10/19 Range/Units 11:38 16:47 21:16 WBC (3.8-10.6) k/uL MCV (80.0-100.0) fL Neutrophils # (1.3-7.7) k/uL Lymphocytes # (1.0-4.8) k/uL Sodium (137-145) mmol/L Carbon Dioxide (22-30) mmol/L Glucose (74-99) mg/dL POC Glucose (mg/dL) 125 H 165 H 135 H (75-99) mg/dL AST (17-59) U/L ALT (4-49) U/L Total Protein (6.3-8.2) g/dL Albumin (3.5-5.0) g/dL 09/11/19 09/11/19 Range/Units 06:23 06:23 WBC 16.2 H (3.8-10.6) k/uL MCV 100.8 H (80.0-100.0) fL Neutrophils # 14.2 H (1.3-7.7) k/uL Lymphocytes # 0.8 L (1.0-4.8) k/uL Sodium 136 L (137-145) mmol/L Carbon Dioxide 34 H (22-30) mmol/L Glucose 104 H (74-99) mg/dL POC Glucose (mg/dL) (75-99) mg/dL AST 160 H (17-59) U/L ALT 476 H (4-49) U/L Total Protein 5.5 L (6.3-8.2) g/dL Albumin 3.3 L (3.5-5.0) g/dL Microbiology - Last 24 Hours (Table) 09/09/19 11:56 Blood Culture - Preliminary Blood No Growth after 24 hours Assessment and Plan Plan: 1 shortness of breath. The patient's shortness of breath is most likely in association with abdominal distention and fullness and bloating that he is experiencing following food intake. He is known to have COPD. His COPD is currently inactive in stable and his FEV1 as measured in the office is 41% of predicted and is pretty much comparable to his previous spirometry there was not years back. His chest x-ray is not showing any acute abnormalities. There is some elevation of the right hemidiaphragm as the patient has had previous plication for right hemidiaphragmatic paralysis. He is on good coverage with a combination of Advair and Incruse and he has completed a prednisone burst taper without much improvement. I reviewed the CAT scan of the abdomen and there is significant fecal stasis in the large and small bowel. Consider ongoing stricture or bowel motility issues contiguity to this patient's increased shortness of breath which is mainly postprandial. Since yesterday, the patient underwent some laxative treatment and the patient is feeling better as the patient had several bowel movements activity. General surgical consultation is pending. The patient is feeling better and less short of breath for now. 2 COPD , stable 3 history of a diaphragmatic paralysis post plication 4 history of bladder cancer post resection and post BCG treatment 5 history of testicular cancer post-orchiectomy 6 chronic back pain 7 history of recurrent diverticulitis Combig[place] by development of a sigmoid stricture post colectomy and mobilization of the splenic flexure. This surgery was done for strictures of the sigmoid colon. 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 The patient is less short of breath. Clinically improving.
--- NOTE | 2019-09-11 12:13 | P.PN ---
Subjective Progress Note Date: 09/11/19 CHIEF COMPLAINT: Abdominal distention, fecal stasis HISTORY OF PRESENT ILLNESS: Patient examined at the bedside. He reports having multiple bowel movements yesterday and today. Abdomen is less distended. He is still having some abdominal pain but states it is improved. AST 160. ALT 476. PHYSICAL EXAM: VITAL SIGNS: Reviewed GENERAL: Well-developed in no acute distress. HEENT: No sclera icterus. Extraocular movements grossly intact. Moist buccal mucosa. Head is atraumatic, normocephalic. Hears conversational speech. No nasal drainag e. NECK: Supple without lymphadenopathy. CHEST: Non-labored respirations and equal bilateral excursions. CARDIOVASCULAR: Regular rate with regular rhythm. Palpable 2+ radial pulses. ABDOMEN: Soft. Nondistended. Mild tenderness with palpation. MUSCULOSKELETAL: No clubbing or cyanosis. NEUROLOGIC: No focal or lateralizing signs. Cranial nerves II through XII grossly intact. PSYCH: Appropriate affect. Alert and oriented to person, place and time. SKIN: Well perfused. Good skin turgor. ASSESSMENT: 1. Abdominal pain 2. Fecal stasis 3. History of sigmoid colectomy secondary to sigmoid stricture due to diverticulitis 4. Transaminitis 5. History of cholecystectomy PLAN: -Full liquid diet -Continue bowel regimen -Obtain barium enema -GI on consult for elevated LFTs. Also, will seek their advice regarding medication to help with patients IBS with constipation as he already takes dulcolax, colace, and miralax daily at home -Further recommendations pending patients clinical course Nurse practitioner note has been reviewed by physician. Signing provider agrees with the documented findings, assessment, and plan of care. Objective - Vital Signs Vital signs: Vital Signs Temp 97.4 F L 09/11/19 09:14 Pulse 72 09/11/19 11:58 Resp 16 09/11/19 09:14 BP 158/83 09/11/19 09:14 Pulse Ox 98 09/11/19 09:14 Intake & Output 09/10/19 09/11/19 09/11/19 18:59 06:59 18:59 Intake Total 480 Balance 480 Intake: Oral 480 Other: Voiding Method Toilet Toilet Toilet # Voids 1 1 # Bowel Movements 1 - Labs CBC & Chem 7: 09/11/19 06:23 09/11/19 06:23 Labs: Abnormal Lab Results - Last 24 Hours (Table) 09/10/19 09/10/19 09/11/19 Range/Units 16:47 21:16 06:23 WBC 16.2 H (3.8-10.6) k/uL MCV 100.8 H (80.0-100.0) fL Neutrophils # 14.2 H (1.3-7.7) k/uL Lymphocytes # 0.8 L (1.0-4.8) k/uL Sodium (137-145) mmol/L Carbon Dioxide (22-30) mmol/L Glucose (74-99) mg/dL POC Glucose (mg/dL) 165 H 135 H (75-99) mg/dL AST (17-59) U/L ALT (4-49) U/L Total Protein (6.3-8.2) g/dL Albumin (3.5-5.0) g/dL 09/11/19 Range/Units 06:23 WBC (3.8-10.6) k/uL MCV (80.0-100.0) fL Neutrophils # (1.3-7.7) k/uL Lymphocytes # (1.0-4.8) k/uL Sodium 136 L (137-145) mmol/L Carbon Dioxide 34 H (22-30) mmol/L Glucose 104 H (74-99) mg/dL POC Glucose (mg/dL) (75-99) mg/dL AST 160 H (17-59) U/L ALT 476 H (4-49) U/L Total Protein 5.5 L (6.3-8.2) g/dL Albumin 3.3 L (3.5-5.0) g/dL Microbiology - Last 24 Hours (Table) 09/09/19 11:56 Blood Culture - Preliminary Blood No Growth after 24 hours
--- NOTE | 2019-09-11 14:04 | FL ---
EXAMINATION TYPE: FL barium enema DATE OF EXAM: 09/11/2019 CLINICAL HISTORY: Pain history of partial colonic resection secondary to sigmoid volvulus. TECHNIQUE: A single contrast barium enema study is performed. COMPARISON: None. FINDINGS: Senior Mechanical Technician view of the abdomen shows overall non-obstructive bowel gas pattern. Postsurgical ch michael in the region of the sigmoid colon. While there is luminal narrowing at do not see evidence for obstruction. No evidence for leak. No evidence for recurrent volvulus. No evidence of any mass or romina yp, obstructing or constricting lesion throughout the colon. Mild scattered sigmoid diverticulosis wi thout diverticulitis. Appendix was filled and appeared normal. The terminal ileum was refluxed and appears within normal limits. IMPRESSION: Postsurgical changes of partial sigmoid resection with mild luminal narrowing seen. There is no evidence for recurrent volvulus. Mild scattered sigmoid diverticulosis without diverticulitis.
[2019-09-11] MEDS: METOCLOPRAMIDE 10 MG TAB PO SCH ×2 (14:49→17:20)
--- NOTE | 2019-09-11 15:41 | P.DS ---
Providers Date of admission: 09/09/19 16:00 Attending physician: Lul Garcia Consults: 09/10/19 08:30 Consult Physician Routine Consulting Provider: Bharath Medrano Consult Reason/Comments: copd, sob Do you want consulting provider notified?: Yes 09/10/19 10:33 Consult Physician Routine Consulting Provider: Bonnie Padilla Consult Reason/Comments: abdominal distension, fecal stasis, shortness of breath Do you want consulting provider notified?: Yes 09/10/19 12:41 Consult Physician Routine Consulting Provider: Nick Dailey Consult Reason/Comments: elevated LFTs Do you want consulting provider notified?: Yes Primary care physician: Lul Garcia - Discharge Diagnosis(es) (1) COPD exacerbation Current Visit: Yes Status: Acute (2) Constipation Current Visit: Yes Status: Acute (3) Abdominal pain Current Visit: No Status: Acute (4) At risk for readmission to hospital Current Visit: No Status: Acute (5) Headache Current Visit: No Status: Acute (6) S/P colon resection Current Visit: No Status: Acute Hospital Course: Patient admitted with fecal stasis and constipation. also elevated LFTs and element of COPD. Multiple consultants are clearing for DC and he will followup in 3 -4 days Patient Condition at Discharge: Stable Plan - Discharge Summary Discharge Rx Participant: No New Discharge Prescriptions: No Action Omeprazole 40 mg PO DAILY Fluticasone/Salmeterol [Advair 500-50 Diskus] 1 puff INHALATION RT-BID Ipratropium-Albuterol Nebulize [Duoneb 0.5 mg-3 mg/3 ml Soln] 3 ml INHALATION RT-QID Albuterol Sulfate [Ventolin HFA] 2 puff INHALATION RT-QID PRN PRN Reason: Shortness Of Breath predniSONE See Taper PO DAILY Umeclidinium [place] [Incruse Ellipta] 1 puff INHALATION RT-DAILY Methocarbamol [Robaxin-750] 750 mg PO TID Discharge Medication List Omeprazole 40 mg PO DAILY 08/17/18 [History] Fluticasone/Salmeterol [Advair 500-50 Diskus] 1 puff INHALATION RT-BID 01/15/19 [History] Ipratropium-Albuterol Nebulize [Duoneb 0.5 mg-3 mg/3 ml Soln] 3 ml INHALATION RT-QID 02/26/19 [History] Albuterol Sulfate [Ventolin HFA] 2 puff INHALATION RT-QID PRN 09/09/19 [History] Methocarbamol [Robaxin-750] 750 mg PO TID 09/09/19 [History] Umeclidinium [place] [Incruse Ellipta] 1 puff INHALATION RT-DAILY 09/09/19 [History] predniSONE See Taper PO DAILY 09/09/19 [History] Follow up Appointment(s)/Referral(s): Jemima Mederos PAC [REFERRING] - 1 Week Lul Garcia MD [Primary Care Provider] - 3 Days Discharge Disposition: HOME SELF-CARE
[2019-09-11 16:31] LABS: Alpha Fetoprotein, Tumor Mkr <2.5 ng/mL (0.0-7.9)
[2019-09-11 17:09] VITALS: BP 151/84; PULSE 73; TEMP 97.6
[2019-09-11 17:14] LABS: Hepatitis A Antibody IgM Non-Reactive (Non-Reactive); Hepatitis B Core IgM Non-Reactive (Non-Reactive); Hepatitis B Surface Antigen Non-Reactive (Non-Reactive); Hepatitis C IgG Antibody Non-Reactive (Non-Reactive)
--- NOTE | 2019-09-11 19:57 | P.CONS ---
History of Present Illness - Reason for Consult Consult date: 09/11/19 Elevated liver enzymes Requesting physician: Bonnie Padilla - Chief Complaint Shortness of breath - History of Present Illness 74-year-old male with a medical history significant for COPD, recurrent diverticulitis and sigmoid stricture status post sigmoid colectomy with reanastomosis, migraines, right testicular cancer status post orchiectomy and chronic constipation who presented to the hospital with complaints of shortness of breath. Patient was seen by the pulmonology service report that his COPD is stable and patient recently received a burst dose of prednisone with no real improvement in symptoms. Patient also reports symptoms of abdominal pain secondary to fullness and distention. He reports problems with chronic constipation for which he is on MiraLAX and Dulcolax therapy daily. Last colonoscopy in 03/2019 significant for polypectomy and diverticulosis with stricture prior to his sigmoid colectomy. He also underwent cholecystectomy in 02/2019. The patient underwent computed tomography scan of the abdomen with postop changes noted as well as suggestion of fecal stasis. Laboratory evaluation on presentation was significant for normal AST and ALT which subsequently trended up to 504 and 669 respectively and were improved today at 160 and 476 respectively. No history of liver disease. Suspicion is for medication related transaminitis with differential also including hypoperfusion in the setting of dehydration. Full liver serologies has been ordered and acute viral hepatitis panel has been resulted is negative. Review of Systems REVIEW OF SYSTEMS: CONSTITUTIONAL: Denies any fevers, chills, weight change or fatigue. CARDIOVASCULAR: Denies any chest pain, palpitations high or low blood pressures RESPIRATORY: Denies any hemoptysis or cough, he was complaining of shortness of breath and has underlying COPD. GENITOURINARY: No dysuria or hematuria. MUSCULOSKELETAL: No weakness reported. SKIN: Denies any new rashes or lesions, jaundice or pallor. PSYCHIATRIC: Denies any depression or anxiety. NEUROLOGY: Denies headache, denies any new focal deficits. EARS/NOSE/THROAT: No recent hearing change, congestion, nasal discharge or sore throat. EYES: No pain in eyes, discharge or change in vision. GASTROINTESTINAL: As per HPI. 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 Last Myocardial Infarction Date:: 05/25/14 History of Any Multi-Drug Resistant Organisms: None Reported Past Surgical History: Adenoidectomy, Appendectomy, Back Surgery, Cholecystectomy, Heart Catheterization, Hernia Repair, Orthopedic Surgery, Tonsillectomy Additional Past Surgical History / Comment(s): 08/03/15 EGD colonoscopy,l cardiac cath, several back sx including laminectomy, spinous process removed T11 and T12 /cage and arturo, bilateral arthroscopic knee surgeries, left thumb surgeries with rt one having titanium joint, L rotator cuff repair, several nasal polypectomies, RFA cervical/back, R/L inguinal hernia repairs, rt orchiectomy; diaphragmatic hernia repair 03/2019 section of sigmoid colon removed. Past Anesthesia/Blood Transfusion Reactions: No Reported Reaction Past Psychological History: Depression Additional Psychological History / Comment(s): Patient resides with his spouse of 55 yrs. He has chronic pain and debilitating migraines. He has a cane and walker which he uses prn. He has falls. He drives some but spouse does most of the driving. Spouse works afternoons at [employer] in patient check in/previous MRI. Smoking Status: Former smoker Past Alcohol Use History: None Reported Additional Past Alcohol Use History / Comment(s): Pt started smoking in 1959 and quit cigarettes in 2003, smoked 1 1/2ppd Past Drug Use History: None Reported - Past Family History Father Family Medical History: Cancer Additional Family Medical History / Comment(s): Father of stomach ca at the age of 65 yrs. Mother Family Medical History: No Reported History Additional Family Medical History / Comment(s): Mother of "old age". She was 83 yrs old Brother(s) Family Medical History: Diabetes Mellitus Additional Family Medical History / Comment(s): brain tumor Sister(s) Family Medical History: Diabetes Mellitus Additional Family Medical History / Comment(s): breast ca (sisters) Medications and Allergies Home Medications Medication Instructions Recorded Confirmed Type Omeprazole 40 mg PO DAILY 08/17/18 09/09/19 History Fluticasone/Salmeterol [Advair 1 puff INHALATION RT-BID 01/15/19 09/09/19 History 500-50 Diskus] Ipratropium-Albuterol Nebulize 3 ml INHALATION RT-QID 02/26/19 09/09/19 History [Duoneb 0.5 mg-3 mg/3 ml Soln] Albuterol Sulfate [Ventolin HFA] 2 puff INHALATION RT-QID PRN 09/09/19 09/09/19 History Methocarbamol [Robaxin-750] 750 mg PO TID 09/09/19 09/09/19 History Umeclidinium [place] [Incruse 1 puff INHALATION RT-DAILY 09/09/19 09/09/19 History Ellipta] predniSONE See Taper PO DAILY 09/09/19 09/09/19 History Allergies Allergy/AdvReac Type Severity Reaction Status Date / Time chocolate flavor Allergy TRIGGERS Verified 09/09/19 13:13 MIGRAINE Iodinated Contrast Media Allergy Anaphylaxis Verified 09/09/19 13:13 [Iodinated Contrast Media - IV Dye] iodine Allergy Anaphylaxis Verified 09/09/19 13:13 peanut Allergy TRIGGERS Verified 09/09/19 13:13 MIGRAINES Penicillins Allergy Anaphylaxis Verified 09/09/19 13:13 Sulfa (Sulfonamide Allergy Anaphylaxis Verified 09/09/19 13:13 Antibiotics) fentanyl AdvReac Severe SEVERE Verified 09/09/19 13:13 MIGRAINES adhesive AdvReac tears skin Verified 09/09/19 13:13 banana AdvReac HEADACHE Verified 09/09/19 13:13 gabapentin AdvReac Confusion Verified 09/09/19 13:13 tree nut [Nut] AdvReac HEADACHE Verified 09/09/19 13:13 yellow dye AdvReac HEADACHE Verified 09/09/19 13:13 OPIODS AdvReac Severe MIGRAINES Uncoded 09/09/19 13:13 Physical Exam Vitals: Vital Signs Temp Pulse Pulse Resp BP Pulse Ox 09/11/19 12:07 68 09/11/19 11:58 72 09/11/19 09:14 97.4 F L 66 16 158/83 98 09/11/19 07:47 68 09/11/19 07:36 64 93 L 09/11/19 04:35 97.4 F L 62 16 117/66 96 09/10/19 20:14 94 09/10/19 18:48 82 16 09/10/19 18:37 80 16 09/10/19 16:59 97.7 F 94 16 132/77 95 09/10/19 15:46 88 09/10/19 15:35 90 Intake and Output 09/10/19 09/11/19 09/11/19 22:59 06:59 14:59 Other: Voiding Method Toilet Toilet Toilet # Voids 1 1 # Bowel Movements 1 On physical examination, patient appears comfortable in no apparent distress. HEAD: Normocephalic, atraumatic. EYES: No scleral icterus. No conjunctival injection. MOUTH: No lesions, tongue midline. NECK: Trachea midline, no gross abnormalities. CHEST: Decreased air entry in all lung castellanos. HEART: Regular rate and rhythm, S1-S2 appreciated. ABDOMEN: Soft. Bowel sounds are positive. No organomegaly. No guarding or rigidity. EXTREMITIES: No pedal edema. SKIN: No rashes, no jaundice. NEUROLOGIC: Alert and oriented x3. No focal deficits. Results CBC & Chem 7: 09/11/19 06:23 09/11/19 06:23 Labs: Abnormal Lab Results - Last 24 Hours (Table) 09/10/19 09/10/19 09/11/19 Range/Units 16:47 21:16 06:23 WBC 16.2 H (3.8-10.6) k/uL MCV 100.8 H (80.0-100.0) fL Neutrophils # 14.2 H (1.3-7.7) k/uL Lymphocytes # 0.8 L (1.0-4.8) k/uL Sodium (137-145) mmol/L Carbon Dioxide (22-30) mmol/L Glucose (74-99) mg/dL POC Glucose (mg/dL) 165 H 135 H (75-99) mg/dL AST (17-59) U/L ALT (4-49) U/L Total Protein (6.3-8.2) g/dL Albumin (3.5-5.0) g/dL 09/11/19 Range/Units 06:23 WBC (3.8-10.6) k/uL MCV (80.0-100.0) fL Neutrophils # (1.3-7.7) k/uL Lymphocytes # (1.0-4.8) k/uL Sodium 136 L (137-145) mmol/L Carbon Dioxide 34 H (22-30) mmol/L Glucose 104 H (74-99) mg/dL POC Glucose (mg/dL) (75-99) mg/dL AST 160 H (17-59) U/L ALT 476 H (4-49) U/L Total Protein 5.5 L (6.3-8.2) g/dL Albumin 3.3 L (3.5-5.0) g/dL Microbiology - Last 24 Hours (Table) 09/09/19 11:56 Blood Culture - Preliminary Blood No Growth after [address] scan - abdomen: report reviewed (Computed tomography scan of the abdomen with postoperative changes noted as well as stool debris suggestive of fecal stasis.) Assessment and Plan (1) Constipation Narrative/Plan: 74-year-old male with multiple medical comorbidities including chronic constipation, sigmoid diverticulosis with stricture status post sigmoid colectomy with ring anastomosis in 03/2019 who presented with shortness of breath. He has a known underlying history of COPD however pulmonology was consult dated and do not feel the patient is having an exacerbation at this time. He reports problems with abdominal bloating, distention and pain secondary to the distention. He suffers from chronic constipation and takes a combination of MiraLAX daily and Dulcolax daily at home. He has not followed up with gastroenterology in the past. Unclear etiology with suspicion for IBS constipation predominant, differential also includes decreased colonic motility, or other etiology. Current Visit: Yes Status: Acute Code(s): K59.00 - CONSTIPATION, UNSPECIFIED SNOMED Code(s): 82015417 (2) Abdominal pain Current Visit: No Status: Acute Code(s): R10.9 - UNSPECIFIED ABDOMINAL PAIN SNOMED Code(s): 33147513 (3) S/P colon resection Current Visit: No Status: Acute Code(s): Z90.49 - ACQUIRED ABSENCE OF OTHER SPECIFIED PARTS OF DIGESTIVE TRACT SNOMED Code(s): 407610601 (4) Stricture of sigmoid colon Current Visit: No Status: Acute Code(s): K56.699 - OTHER INTESTNL OBST UNSP TO PARTIAL VERSUS COMPLETE OBST SNOMED Code(s): 3267745 Plan: Supportive care Okay for diet Recommendation is for patient to increase MiraLAX to twice daily Okay to continue Dulcolax daily for now Patient will need follow-up with gastroenterology after follow-up for titration of laxative therapy and consideration for alternate medications pending results Patient may also benefit from anorectal manometry or defecography at outside institution for complete workup of constipation Full liver serologies ordered for elevated liver enzymes, however rapid increase and improvements likely indicative of a medication effect, with patient again encouraged to follow up with GI for results of full liver serology Thank you for allowing us to participate in the care of the patient
[2019-09-11 19:58] LABS: % Iron Saturation 46.18 (15.00-50.00); Iron 127 ug/dL (65-175); Total Iron Binding Capacity 275 ug/dL (228-460)
[2019-09-12 11:03] LABS: Ceruloplasmin 21.2 mg/dL (20.0-60.0)
[2019-09-12 12:51] LABS: Protein, Total 5.4 g/dL (6.2-8.2)
[2019-09-14 11:55] LABS: ANA Pattern Homogeneous
[2019-09-14 13:16] LABS: Albumin 3.18 g/dL (3.80-4.90); Gamma Globulin 0.69 g/dL (0.70-1.50)
[2019-09-14 13:56] LABS: Liver/Kidney Microsome Antibod 0.4 UNITS (<=20)
== END 2019-09-12 06:30 | disposition home or self-care (01) ==
LOC: EC 10:56 → 1SOBS 16:00
PROVIDERS: ADMIT Family Medicine; ATTEND Family Medicine
DX: J44.1 Chronic obstructive pulmonary disease with (acute) exacerbation (principal); K59.00 Constipation, unspecified; J98.11 Atelectasis; R74.8 Abnormal levels of other serum enzymes; K21.9 Gastro-esophageal reflux disease without esophagitis; G89.29 Other chronic pain; M54.9 Dorsalgia, unspecified; M54.2 Cervicalgia; M54.30 Sciatica, unspecified side; G51.0 Bell's palsy; I25.2 Old myocardial infarction; Z90.49 Acquired absence of other specified parts of digestive tract; Z90.79 Acquired absence of other genital organ(s); Z96.692 Finger-joint replacement of left hand; Z98.890 Other specified postprocedural states; Z87.19 Personal history of other diseases of the digestive system; Z85.51 Personal history of malignant neoplasm of bladder; Z85.47 Personal history of malignant neoplasm of testis; Z92.3 Personal history of irradiation; Z98.1 Arthrodesis status; F32.9 Major depressive disorder, single episode, unspecified; Z87.891 Personal history of nicotine dependence; Z80.0 Family history of malignant neoplasm of digestive organs; Z83.3 Family history of diabetes mellitus; J90 Pleural effusion, not elsewhere classified; G43.909 Migraine, unspecified, not intractable, without status migrainosus; Z80.8 Family history of malignant neoplasm of other organs or systems; Z80.3 Family history of malignant neoplasm of breast; Z79.899 Other long term (current) drug therapy; Z88.4 Allergy status to anesthetic agent; Z91.041 Radiographic dye allergy status; Z88.5 Allergy status to narcotic agent; Z91.018 Allergy to other foods; Z91.010 Allergy to peanuts; Z88.0 Allergy status to penicillin; Z88.2 Allergy status to sulfonamides; Z91.048 Other nonmedicinal substance allergy status; Z91.09 Other allergy status, other than to drugs and biological substances
CPT/HCPCS: 96361 ×3; 96375 ×2; 96376 ×4; 96374; 99285; 36415; 94640 ×5; 94760; 93005; 86376; 85379; 83880; 80053 ×3; 80074; 82728; 82150; 83540; 83550; 83605; 83615; 83690; 83735; 84484; 85025 ×2; 85027; 85610; 85730; 86140; 81003; 87040; 83516 ×2; 82103; 82105; 84165; 82390; 86038; 86039; 84145; 74270; 71046; 74018; 76705; 74177; G0378 ×4; U0003; J1200; J2765 ×3; J2930 ×2; J2270 ×3; J1170; Q9967

== ENCOUNTER → 2019-10-30 | Outpatient (CLI) | payer MEDICAID, MEDICARE ==
--- NOTE | 2019-10-30 10:17 | CT ---
EXAMINATION TYPE: CT thoracic spine wo con DATE OF EXAM: 10/30/2019 COMPARISON: Two-view chest radiograph 09/09/2019. CT chest 08/18/2018. HISTORY: chronic back pain CT DLP: 611.5 mGycm Automated exposure control for dose reduction was used. TECHNIQUE: Contiguous axial imaging of the thoracic spine was obtained without intravenous contrast. Coronal and sagittal reformatted images were obtained. Three-dimensional images were generated and ut ilized on a separate workstation. FINDINGS: No acute fracture or dislocation of the thoracic spine. Old healed right rib fracture deformity. Decr eased osseous mineralization. There is increased thoracic kyphosis. The vertebral body heights are no rmal. There is mild multilevel disc space narrowing and mild degenerative endplate spurring. There is vacuum disc phenomenon at T7-T8. Degenerative endplate changes. No significant canal stenosis or newton ral foramina narrowing. Calcified pleural plaques of the right lung base may be postsurgical as the anatomic orientation of t he liver and diaphragm are changed versus 08/18/2018 CT comparison. Right basilar atelectasis. Centril obular emphysematous change. Calcified granulomas of the right upper lobe apex. No adrenal nodule. Va scular calcification of the left kidney. IMPRESSION: 1. NO ACUTE FRACTURE OR DISLOCATION OF THE THORACIC SPINE. 2. MILD DEGENERATIVE DISC DISEASE. NO SIGNIFICANT CANAL STENOSIS OR NEURAL FORAMINA NARROWING. 3. INCREASED THORACIC KYPHOSIS. 4. DECREASED OSSEOUS MINERALIZATION.
== END | disposition home or self-care (01) ==
LOC: RADCTMAIN 07:16
PROVIDERS: ATTEND Physical Medicine & Rehabilitation
DX: M51.34 Other intervertebral disc degeneration, thoracic region (principal); M40.204 Unspecified kyphosis, thoracic region; M85.88 Other specified disorders of bone density and structure, other site
CPT/HCPCS: 72128

== ENCOUNTER → 2019-12-08 | Outpatient (CLI) | payer MEDICAID, MEDICARE ==
--- NOTE | 2019-12-08 16:29 | XR ---
EXAMINATION TYPE: XR chest 2V DATE OF EXAM: 12/08/2019 CLINICAL HISTORY: Cough. History of COPD, diaphragm repair. TECHNIQUE: Frontal and lateral views of the chest are obtained. COMPARISON: 09/09/2019 chest radiograph. FINDINGS: Redemonstrated elevation of the right hemidiaphragm. Increased AP diameter consistent with history of COPD. The cardiomediastinal silhouette is unchanged and within normal limits for size. Pu lmonary vasculature is normal. There is no focal air space opacity, pleural effusion, or pneumothorax seen. The osseous structures are intact. IMPRESSION: Emphysematous change. No acute cardiopulmonary process.
== END | disposition home or self-care (01) ==
LOC: RADXRMAIN 12:18
PROVIDERS: ATTEND Family Medicine
DX: J43.9 Emphysema, unspecified (principal)
CPT/HCPCS: 71046

== ENCOUNTER → 2019-12-11 | Outpatient (CLI) | payer MEDICAID, MEDICARE ==
[2019-12-11 11:59] LABS: Basophils % (A) 0 %; Eosinophils % (A) 1 %; HCT 45.7 % (39.0-53.0); HGB 14.9 gm/dL (13.0-17.5); Lymphocytes # (A) 1.4 k/uL (1.0-4.8); Lymphocytes % (A) 15 %; MCH 33.2 pg (25.0-35.0); MCHC 32.6 g/dL (31.0-37.0); MCV 101.9 fL (80.0-100.0); Macrocytosis Slight; Mean Platelet Volume 8.1; Monocytes # (A) 0.5 k/uL (0-1.0); Monocytes % (A) 6 %; Neutrophils # (A) 6.8 k/uL (1.3-7.7); Neutrophils % (A) 75 %; Platelet Count 238 k/uL (150-450); RBC 4.48 m/uL (4.30-5.90); RDW 14.3 % (11.5-15.5); WBC 9.1 k/uL (3.8-10.6)
[2019-12-11 17:45] LABS: Anion Gap 9.8 mmol/L (4.00-12.00); BUN/Creat Ratio 21.25 Ratio (12.00-20.00); Calcium 9.6 mg/dL (8.7-10.3); Carbon Dioxide 28.2 mmol/L (21.6-31.8); Potassium 4.1 mmol/L (3.5-5.5)
== END | disposition home or self-care (01) ==
LOC: LABWHC1 09:48
PROVIDERS: ATTEND Neurological Surgery
DX: Z01.818 Encounter for other preprocedural examination (principal)
CPT/HCPCS: 36415; 80048; 85025; 93005

== ENCOUNTER → 2019-12-15 | Outpatient (CLI) | payer MEDICAID, MEDICARE ==
[2019-12-15 15:45] LABS: INR 0.92 (0.90-1.11); Prothrombin Time 9.9 sec (9.9-11.9)
== END | disposition home or self-care (01) ==
LOC: LABWHC1 07:41
PROVIDERS: ATTEND Family Medicine
DX: Z01.818 Encounter for other preprocedural examination (principal)
CPT/HCPCS: 36415; 85610

== ENCOUNTER 2020-01-21 09:48 | Inpatient (IN) | payer MEDICAID, MEDICARE ==
[2020-01-21] MEDS ORDERED: KETOROLAC 15 MG/ML 1 ML VIAL IVP STA (10:17)
[2020-01-21] MEDS ORDERED: SODIUM CHLORIDE 0.9% 500 ML 500 ML IV STA (10:17)
--- NOTE | 2020-01-21 10:22 | ED ---
SOB HPI - General Chief Complaint: Shortness of Breath Stated Complaint: SOB/fever/nausea Time Seen by Provider: 01/21/20 10:05 Source: patient Mode of arrival: wheelchair Limitations: no limitations - History of Present Illness Initial Comments: Patient is a 74-year-old male, history of COPD, on 2 L at night, presenting to emergency Department with complaints of shortness of breath, chills and fever that started about 3 AM this morning. Patient states he felt generally fatigued yesterday but no other symptoms. Patient states he woke up about 3 AM with chills, increased shortness of breath. Patient states she did try an at-home nebulizer with some mild improvement of symptoms. He did take 2 Tylenol approximately 2 hours prior to arrival. Patient states he also has a mild headache, mild nausea, no vomiting or abdominal pain. His bowel movements are regular. He denies any chest pains. He states he did cough up some green sputum this morning. He denies any sick contacts. He has no further complaints at this time. Upon arrival to the ER, he is afebrile, pulse is 121, 93% on 2 L. - Related Data Home Medications Medication Instructions Recorded Confirmed Omeprazole 40 mg PO DAILY 08/17/18 09/09/19 Fluticasone/Salmeterol [Advair 1 puff INHALATION RT-BID 01/15/19 09/09/19 500-50 Diskus] Ipratropium-Albuterol Nebulize 3 ml INHALATION RT-QID 02/26/19 09/09/19 [Duoneb 0.5 mg-3 mg/3 ml Soln] Albuterol Sulfate [Ventolin HFA] 2 puff INHALATION RT-QID PRN 09/09/19 09/09/19 Methocarbamol [Robaxin-750] 750 mg PO TID 09/09/19 09/09/19 Umeclidinium [place] [Incruse 1 puff INHALATION RT-DAILY 09/09/19 09/09/19 Ellipta] predniSONE See Taper PO DAILY 09/09/19 09/09/19 Previous Rx's Medication Instructions Recorded Levofloxacin [Levaquin] 750 mg PO DAILY 5 Days #5 tab 01/21/20 predniSONE 50 mg PO DAILY 5 Days #5 tab 01/21/20 Allergies Allergy/AdvReac Type Severity Reaction Status Date / Time chocolate flavor Allergy TRIGGERS Verified 09/09/19 13:13 MIGRAINE Iodinated Contrast Media Allergy Anaphylaxis Verified 09/09/19 13:13 [Iodinated Contrast Media - IV Dye] iodine Allergy Anaphylaxis Verified 09/09/19 13:13 peanut Allergy TRIGGERS Verified 09/09/19 13:13 MIGRAINES Penicillins Allergy Anaphylaxis Verified 09/09/19 13:13 Sulfa (Sulfonamide Allergy Anaphylaxis Verified 09/09/19 13:13 Antibiotics) fentanyl AdvReac Severe SEVERE Verified 09/09/19 13:13 MIGRAINES adhesive AdvReac tears skin Verified 09/09/19 13:13 banana AdvReac HEADACHE Verified 09/09/19 13:13 gabapentin AdvReac Confusion Verified 09/09/19 13:13 tree nut [Nut] AdvReac HEADACHE Verified 09/09/19 13:13 yellow dye AdvReac HEADACHE Verified 09/09/19 13:13 OPIODS AdvReac Severe MIGRAINES Uncoded 09/09/19 13:13 Review of Systems ROS Statement: Those systems with pertinent positive or pertinent negative responses have been documented in the HPI. ROS Other: All systems not noted in ROS Statement are negative. 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 Last Myocardial Infarction Date:: 05/25/14 History of Any Multi-Drug Resistant Organisms: None Reported Past Surgical History: Adenoidectomy, Appendectomy, Back Surgery, Cholecystectomy, Heart Catheterization, Hernia Repair, Orthopedic Surgery, Tonsillectomy Additional Past Surgical History / Comment(s): 08/03/15 EGD colonoscopy,l cardiac cath, several back sx including laminectomy, spinous process removed T11 and T12/cage and arturo, bilateral arthroscopic knee surgeries, left thumb surgeries with rt one having titanium joint, L rotator cuff repair, several nasal polypectomies, RFA cervical/back, R/L inguinal hernia repairs, rt orchiectomy; diaphragmatic hernia repair 03/2019 section of sigmoid colon removed. Past Anesthesia/Blood Transfusion Reactions: No Reported Reaction Past Psychological History: Depression Smoking Status: Former smoker Past Alcohol Use History: None Reported Past Drug Use History: None Reported - Past Family History Father Family Medical History: Cancer Additional Family Medical History / Comment(s): Father of stomach ca at the age of 65 yrs. Mother Family Medical History: No Reported History Additional Family Medical History / Comment(s): Mother of "old age". She was 83 yrs old Brother(s) Family Medical History: Diabetes Mellitus Additional Family Medical History / Comment(s): brain tumor Sister(s) Family Medical History: Diabetes Mellitus Additional Family Medical History / Comment(s): breast ca (sisters) General Exam - General Exam Comments Initial Comments: GENERAL: Patient is well-developed and well-nourished. Patient is nontoxic and in no acute distress. HEAD: Atraumatic, normocephalic. EYES: Pupils equal round and reactive to light, extraocular movements intact, sclera anicteric, conjunctiva are normal. Eyelids were unremarkable. ENT: TMs normal, nares patent, oropharynx clear without exudates. Moist mucous membranes. NECK: Normal range of motion, supple without lymphadenopathy or JVD. LUNGS: Unlabored respirations. Decreased sounds on the right compared to left, No wheezes rales or rhonchi. HEART: Tachycardia rate and rhythm without murmurs, rubs or gallops. ABDOMEN: Soft, nontender, normoactive bowel sounds. No guarding, no rebound. No masses appreciated. : Deferred MUSCULOSKELETAL: Normal extremities with adequate strength and normal range of motion, no pitting or edema. No clubbing or cyanosis. NEUROLOGICAL: Patient is alert and oriented x 3. Motor and sensory are also intact. Cranial nerves II through XII grossly intact. Symmetrical smile. Normal speech, normal gait. PSYCH: Normal mood, normal affect. SKIN: Warm, Dry, normal turgor, no rashes or lesions noted. Limitations: no limitations Course Vital Signs 01/21/20 01/21/20 01/21/20 10:02 10:58 11:46 Temperature 98.7 F Pulse Rate 121 H 111 H Respiratory 22 16 16 Rate Blood Pressure 112/87 129/79 O2 Sat by Pulse 93 L 97 Oximetry 01/21/20 14:02 Temperature Pulse Rate 79 Respiratory 16 Rate Blood Pressure 124/78 O2 Sat by Pulse 99 Oximetry Medical Decision Making - Medical Decision Making Patient is 74-year-old male, with hx of COPD on 2L at night, presenting with shortness of breath, cough, fever that started to get worse yesterday. Patient was afebrile upon arrival, pulse is 121, 93% on 2L. Chest x-ray reveals diffuse bilateral airspace infiltrates. EKG shows no acute process. Labs show a slight leukocytosis at 13.6, d-dimer is elevated at 1.86, influenza and Covid rapid are both negative. CT of the chest shows no evidence of PE, bilateral infiltrate. Patient remains slightly tachypneic, on 2 L. I discussed these findings with the patient and patient initially wanted to leave AMA. After speaking with his he did agree to stay. He will be admitted for pneumonia, COPD exacerbation. Patient was accepted by Dr. Rangel, case discussed with Dr. Godwin. We will start patient on Levaquin and steroids. - Lab Data Result diagrams: 01/21/20 10:26 01/21/20 10:26 Lab Results 01/21/20 01/21/20 01/21/20 Range/Units 10:26 10:26 10:26 WBC 13.6 H (3.8-10.6) k/uL RBC 4.93 (4.30-5.90) m/uL Hgb 16.3 (13.0-17.5) gm/dL Hct 48.0 (39.0-53.0) % MCV 97.2 (80.0-100.0) fL MCH 33.0 (25.0-35.0) pg MCHC 33.9 (31.0-37.0) g/dL RDW 13.8 (11.5-15.5) % Plt Count 315 (150-450) k/uL MPV 7.5 Neutrophils % 82 % Lymphocytes % 7 % Monocytes % 4 % Eosinophils % 5 % Basophils % 1 % Neutrophils # 11.2 H (1.3-7.7) k/uL Lymphocytes # 1.0 (1.0-4.8) k/uL Monocytes # 0.5 (0-1.0) k/uL Eosinophils # 0.7 (0-0.7) k/uL Basophils # 0.1 (0-0.2) k/uL PT 9.7 (9.0-12.0) sec INR 0.9 (<1.2) APTT 25.4 (22.0-30.0) sec D-Dimer 1.86 H (<0.60) mg/L FEU Sodium 138 (137-145) mmol/L Potassium 4.4 (3.5-5.1) mmol/L Chloride 106 (98-107) mmol/L Carbon Dioxide 28 (22-30) mmol/L Anion Gap 4 mmol/L BUN 13 (9-20) mg/dL Creatinine 0.76 (0.66-1.25) mg/dL Est GFR (CKD-EPI)AfAm >90 (>60 ml/min/1.73 sqM) Est GFR (CKD-EPI)NonAf >90 (>60 ml/min/1.73 sqM) Glucose 103 H (74-99) mg/dL Plasma Lactic Acid Finesse (0.7-2.0) mmol/L Calcium 9.5 (8.4-10.2) mg/dL Magnesium 1.7 (1.6-2.3) mg/dL Total Bilirubin 1.0 (0.2-1.3) mg/dL AST 35 (17-59) U/L ALT 33 (4-49) U/L Alkaline Phosphatase 95 (38-126) U/L Lactate Dehydrogenase 433 (313-618) U/L C-Reactive Protein 5.6 (<10.0) mg/L Total Protein 6.5 (6.3-8.2) g/dL Albumin 3.7 (3.5-5.0) g/dL Coronavirus (PCR) (Not Detectd) Influenza Type A RNA (Not Detectd) Influenza Type B (PCR) (Not Detectd) 01/21/20 01/21/20 01/21/20 Range/Units 10:26 10:26 10:32 WBC (3.8-10.6) k/uL RBC (4.30-5.90) m/uL Hgb (13.0-17.5) gm/dL Hct (39.0-53.0) % MCV (80.0-100.0) fL MCH (25.0-35.0) pg MCHC (31.0-37.0) g/dL RDW (11.5-15.5) % Plt Count (150-450) k/uL MPV Neutrophils % % Lymphocytes % % Monocytes % % Eosinophils % % Basophils % % Neutrophils # (1.3-7.7) k/uL Lymphocytes # (1.0-4.8) k/uL Monocytes # (0-1.0) k/uL Eosinophils # (0-0.7) k/uL Basophils # (0-0.2) k/uL PT (9.0-12.0) sec INR (<1.2) APTT (22.0-30.0) sec D-Dimer (<0.60) mg/L FEU Sodium (137-145) mmol/L Potassium (3.5-5.1) mmol/L Chloride (98-107) mmol/L Carbon Dioxide (22-30) mmol/L Anion Gap mmol/L BUN (9-20) mg/dL Creatinine (0.66-1.25) mg/dL Est GFR (CKD-EPI)AfAm (>60 ml/min/1.73 sqM) Est GFR (CKD-EPI)NonAf (>60 ml/min/1.73 sqM) Glucose (74-99) mg/dL Plasma Lactic Acid Finesse 1.1 (0.7-2.0) mmol/L Calcium (8.4-10.2) mg/dL Magnesium (1.6-2.3) mg/dL Total Bilirubin (0.2-1.3) mg/dL AST (17-59) U/L ALT (4-49) U/L Alkaline Phosphatase (38-126) U/L Lactate Dehydrogenase (313-618) U/L C-Reactive Protein (<10.0) mg/L Total Protein (6.3-8.2) g/dL Albumin (3.5-5.0) g/dL Coronavirus (PCR) Not Detected (Not Detectd) Influenza Type A RNA Not Detected (Not Detectd) Influenza Type B (PCR) Not Detected (Not Detectd) - EKG Data EKG Comments: Sinus tach, incomplete RBBB, left anterior fascicular block, similar to previous EKG on 12/11/2019. No signs of acute ischemia. Ventricular rate 120, ND interval 150, QT 328. Disposition Clinical Impression: COPD exacerbation, Pneumonia, Dyspnea, Hypoxia Disposition: ADMITTED IP TO THIS HOSP Condition: Good Is patient prescribed a controlled substance at d/c from ED?: No Decision Date: 01/21/20 Decision Time: 13:10
[2020-01-21 10:59] LABS: Basophils # (A) 0.1 k/uL (0-0.2); Basophils % (A) 1 %; Eosinophils # (A) 0.7 k/uL (0-0.7); Eosinophils % (A) 5 %; HGB 16.3 gm/dL (13.0-17.5); Lymphocytes % (A) 7 %; MCHC 33.9 g/dL (31.0-37.0); MCV 97.2 fL (80.0-100.0); Mean Platelet Volume 7.5; Monocytes # (A) 0.5 k/uL (0-1.0); Monocytes % (A) 4 %; Neutrophils # (A) 11.2 k/uL (1.3-7.7); Neutrophils % (A) 82 %; Platelet Count 315 k/uL (150-450); RBC 4.93 m/uL (4.30-5.90); RDW 13.8 % (11.5-15.5); WBC 13.6 k/uL (3.8-10.6)
--- NOTE | 2020-01-21 11:10 | XR ---
EXAMINATION TYPE: XR chest 1V portable DATE OF EXAM: 01/21/2020 HISTORY: Shortness of breath. COMPARISON: 12/08/2019 TECHNIQUE: Single view of the chest is submitted. FINDINGS: Demonstrated are scattered senescent parenchymal change. Diffuse bilateral airspace infiltrates are redemonstrated without significant change. The heart is stable. Hilar and mediastinal structures are within normal limits. Degenerative changes are seen of the dorsal spine. IMPRESSION: 1. Diffuse bilateral airspace infiltrates are redemonstrated without significant change.
[2020-01-21 11:12] LABS: ALT 33 U/L (4-49); AST 35 U/L (17-59); African American GFR (CKD) >90 (>60 ml/min/1.73 sqM); Albumin 3.7 g/dL (3.5-5.0); Alkaline Phosphatase 95 U/L (38-126); Anion Gap 4 mmol/L; Blood Urea Nitrogen 13 mg/dL (9-20); C Reactive Protein 5.6 mg/L (<10.0); Calcium 9.5 mg/dL (8.4-10.2); Carbon Dioxide 28 mmol/L (22-30); Chloride 106 mmol/L (98-107); Glucose 103 mg/dL (74-99); LDH 433 U/L (313-618); Magnesium 1.7 mg/dL (1.6-2.3); Non-African American GFR(CKD) >90 (>60 ml/min/1.73 sqM); Potassium 4.4 mmol/L (3.5-5.1); Sodium 138 mmol/L (137-145); Total Protein 6.5 g/dL (6.3-8.2)
[2020-01-21 11:16] LABS: INR 0.9 (<1.2); Partial Thromboplastin Time 25.4 sec (22.0-30.0); Prothrombin Time 9.7 sec (9.0-12.0)
[2020-01-21] MEDS ORDERED: MORPHINE SULFATE 2 MG/ML SYRINGE IVP ONE (11:22)
[2020-01-21 11:24] LABS: D-Dimer 1.86 mg/L FEU (<0.60)
[2020-01-21] MEDS ORDERED: methylPREDNISolone SOD SUCCI 125 MG/2 ML VIAL IV STA (11:36)
[2020-01-21] MEDS ORDERED: diphenhydrAMINE 50 MG/ML 1 ML VIAL IVP STA (11:36)
[2020-01-21] MEDS ORDERED: FAMOTIDINE 20 MG/2 ML VIAL IV STA (11:36)
--- NOTE | 2020-01-21 12:30 | CT ---
EXAMINATION TYPE: CT chest angio for PE DATE OF EXAM: 01/21/2020 COMPARISON: Chest x-ray earlier today and older x-rays. HISTORY: Shortness of breath on exertion. CT DLP: 284.8 mGycm Automated exposure control for dose reduction was used. CONTRAST: CT Chest for pulmonary embolism performed with with IV Contrast, patient injected with 100 mL of Isov ue 370. FINDINGS: LUNGS: Background mild to moderate underlying emphysematous change. There are no areas of irregular c onsolidation throughout the periphery of the right mid to lower lung with tiny right pleural effusion . Left lung is clear. MEDIASTINUM: There is satisfactory enhancement of the pulmonary artery and its branches, there is no CT evidence for pulmonary embolism. There it is prominent borderline enlarged pericarinal lymph node axial image 65. No cardiomegaly or pericardial effusion is seen. OTHER: Nodular densities just below right hemidiaphragm superior to liver of uncertain etiology. Rebeca er is small in size. Correlate for underlying cirrhosis. No ascites is evident. Spinal stimulator dev ice in the lower thoracic spinal canal noted. IMPRESSION: No CT evidence for acute pulmonary embolism. Tiny right pleural effusion with right mid t o lower lung multifocal irregular consolidation, correlate for acute infectious process.
[2020-01-21] MEDS ORDERED: LEVOFLOXACIN 750 MG TAB PO STA (12:51)
[2020-01-21] MEDS ORDERED: PNEUMONIA PROTOCOL UTILIZED 1 EACH MISC PO PRN (13:28)
[2020-01-21] MEDS ORDERED: ALBUTEROL NEBULIZED 2.5 MG/3 ML INHALATION PRN (13:28)
[2020-01-21 16:52] LABS: Ferritin 80.5 ng/mL (22.0-322.0)
[2020-01-21] MEDS ORDERED: IPRATROPIUM-ALBUTEROL 3 ML NEB INHALATION PRN (17:01)
[2020-01-21] MEDS ORDERED: TEMAZEPAM 15 MG CAP PO PRN (17:02)
[2020-01-21] MEDS ORDERED: ALPRAZolam 0.25 MG TAB PO PRN (17:02)
[2020-01-21] MEDS ORDERED: ACETAMINOPHEN TAB 325 MG TAB PO PRN (17:11)
[2020-01-21] MEDS ORDERED: ALBUTEROL HFA INHALER INHALATION PRN (18:15)
[2020-01-21] MEDS: methylPREDNISolone SOD SUCCI 125 MG/2 ML VIAL IV SCH (18:34)
[2020-01-21] MEDS ORDERED: BUDESONIDE 1 MG/2 ML NEBU INHALATION SCH (20:00)
[2020-01-21] MEDS ORDERED: FORMOTEROL FUMARATE 20 MCG/2 ML NEBU INHALATION SCH (20:00)
[2020-01-21] MEDS: SYMBICORT 160-4.5 MCG INHALER INHALATION SCH (20:11)
[2020-01-21] MEDS: ALBUTEROL HFA INHALER INHALATION SCH (20:11)
--- NOTE | 2020-01-21 21:21 | HP ---
HISTORY AND PHYSICAL DATE OF SERVICE: 01/21/2020 I am covering for . HISTORY OF PRESENT ILLNESS: This 74-year-old gentleman with a past medical history of multiple medical problems including history of COPD, GERD, GI bleed, history of right hemidiaphragmatic palsy with plication, appendectomy, history of adenoidectomy, being followed by in the outpatient setting, not feeling well over the past couple of days. Patient woke up this morning with shortness of breath and fever and chills at about 3 o'clock in the morning. The patient came to [facility] and was admitted for further evaluation and treatment. Right lower lobe pneumonia suspected. CT angio showed no evidence of pulmonary embolism. Pneumonia was confirmed. The patient took some Tylenol. There is no history of contact with any known contacted and Covid infection. Covid rapid test was also reported as negative per staff at this time. A CT angio which was reviewed personally showed extensive lesions in the right side with pleural effusion and right mid lung reticular nodular consolidations suggestive of possible pneumonia, community-acquired versus gram-negative pneumonia. Patient being closely monitored. There is no history of any hemoptysis, any headache, loss of consciousness, seizures at this time. PAST MEDICAL HISTORY: History of COPD, GERD, GI bleed, adenoidectomy, back surgery, DJD. MEDICATIONS: Home medications are Tylenol p.r.n., Incruse Ellipta, omeprazole, Robaxin, DuoNeb. Advair. Ventolin. Levaquin. FAMILY HISTORY: History of stomach cancer in the family. SOCIAL HISTORY: Previous history of smoking. No history of current smoking or alcohol intake. REVIEW OF SYSTEMS: ENT: Diminished vision. Diminished hearing. CARDIOVASCULAR as mentioned earlier. RESPIRATORY: As mentioned earlier. GI no nausea or vomiting. : No dysuria. NERVOUS SYSTEM: No numbness or weakness. ALLERGY/IMMUNOLOGY: No asthma or hayfever. MUSCULOSKELETAL as mentioned earlier. HEMATOLOGY: No history of anemia. ENDOCRINE: No history of diabetes or hypothyroidism. CONSTITUTIONAL: As mentioned earlier. DERMATOLOGY: Negative. RHEUMATOLOGY negative. PSYCHIATRY as mentioned earlier. PHYSICAL EXAM: Patient is alert, oriented times three. Pulse 86. Blood pressure 150/88, respiration 18, temperature 99.2, pulse ox 94% on 2 L. HEENT: Conjunctivae normal. NECK: No JVD. CARDIOVASCULAR: S1, S2 muffled. RESPIRATORY SYSTEM: Breath sounds diminished at the bases. Bilateral scattered rhonchi and crackles. ABDOMEN: Soft, nontender. LEGS are no edema. No swelling. NERVOUS SYSTEM: Higher functions as mentioned. Moves all 4 limbs. No focal motor or sensory deficits. LYMPH: No lymph nodes palpable in the neck, axilla or groin. SKIN: No ulcers, rashes or bleeding. JOINTS: No active deforming arthropathy. LABS: WBC 13.2, hemoglobin 16.3. Other labs are noted. ASSESSMENT: 1. Chronic obstructive pulmonary disease acute exacerbation with acute right lower lobe pneumonia possibly community-acquired, possibly gram-negative. 2. COVID-19 test negative ruled out. 3. Elevated D-dimer without any evidence of pulmonary embolism. 4. Increased WBC. 5. History of gastroesophageal reflux disease. 6. History of gastrointestinal bleed. 7. History of right hemidiaphragmatic paralysis with plication. 8. History of bladder cancer with BCG and tumor removal. 9. History of testicular cancer. 10.History of chronic back pain/degenerative joint disease. 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 12.History of sigmoid stricture related to recurrent diverticulitis and sigmoid colectomy. 13.History of appendectomy. 14.History of back surgery. 15.History of depression. 16.Remote history of nicotine dependence. 17.FULL CODE. RECOMMENDATIONS AND DISCUSSION: This 74-year-old gentleman who presented with multiple complex medical issues, we will monitor the patient closely, continue the current medications, management and symptomatic treatment. I would provide intensive bronchodilator treatment, IV steroids, empiric antibiotics. Follow the cultures. Also recommend pulmonary consultation with Dr. Flor. Otherwise, the prognosis guarded because of multiple complex medical issues. Further recommendations to follow. A copy of dictation being forwarded to who is the primary physician. MMODL / IJN: [id number] /
[2020-01-21] MEDS: HEPARIN SODIUM,PORCINE 5,000 UNIT/ML 1 ML VIAL SQ SCH (21:52)
[2020-01-21] MEDS: HYDROcodone/APAP 5-325MG 1 EACH TAB PO PRN (21:52)
[2020-01-21] MEDS: methocarbamoL 750 MG TAB PO SCH (21:52)
[2020-01-22] MEDS: methylPREDNISolone SOD SUCCI 125 MG/2 ML VIAL IV SCH ×5 (00:18→23:27)
[2020-01-22] MEDS: PANTOPRAZOLE 40 MG TABLET PO SCH (06:43)
[2020-01-22] MEDS: HYDROcodone/APAP 5-325MG 1 EACH TAB PO PRN ×2 (06:50→19:35)
[2020-01-22] MEDS ORDERED: NON FORMULARY DRUG (Omeprazole [Omeprazole] 40 MG Capsule.Dr) PO SCH (09:00)
[2020-01-22] MEDS ORDERED: AZITHROMYCIN 500 MG in SODIUM CHLORIDE 0.9% 250 ML IVPB SCH (09:00)
[2020-01-22] MEDS: SYMBICORT 160-4.5 MCG INHALER INHALATION SCH ×2 (09:09→19:50)
[2020-01-22] MEDS: ALBUTEROL HFA INHALER INHALATION SCH ×4 (09:09→19:50)
[2020-01-22] MEDS: HEPARIN SODIUM,PORCINE 5,000 UNIT/ML 1 ML VIAL SQ SCH ×2 (09:33→21:22)
[2020-01-22] MEDS: methocarbamoL 750 MG TAB PO SCH ×3 (09:33→21:22)
[2020-01-22 09:43] LABS: Basophils % (A) 0 %; Eosinophils % (A) 0 %; HCT 45.3 % (39.0-53.0); HGB 14.6 gm/dL (13.0-17.5); Lymphocytes # (A) 0.7 k/uL (1.0-4.8); Lymphocytes % (A) 4 %; MCHC 32.3 g/dL (31.0-37.0); MCV 99.1 fL (80.0-100.0); Mean Platelet Volume 7.8; Monocytes # (A) 0.4 k/uL (0-1.0); Monocytes % (A) 2 %; Neutrophils # (A) 16.7 k/uL (1.3-7.7); Neutrophils % (A) 94 %; Platelet Count 334 k/uL (150-450); RBC 4.57 m/uL (4.30-5.90); RDW 14.5 % (11.5-15.5); WBC 17.8 k/uL (3.8-10.6)
[2020-01-22 09:58] LABS: African American GFR (CKD) >90 (>60 ml/min/1.73 sqM); Anion Gap 7 mmol/L; Blood Urea Nitrogen 20 mg/dL (9-20); Calcium 9.4 mg/dL (8.4-10.2); Carbon Dioxide 24 mmol/L (22-30); Chloride 104 mmol/L (98-107); Glucose 202 mg/dL (74-99); Non-African American GFR(CKD) >90 (>60 ml/min/1.73 sqM); Potassium 4.3 mmol/L (3.5-5.1); Sodium 135 mmol/L (137-145)
--- NOTE | 2020-01-22 10:45 | P.CNPUL ---
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 Patient is on home oxygen at bedtime, he has a nebulized treatments at home, he sees Dr. Medrano in the pulmonary clinic, yesterday he started experiencing fever with a T-max of 100F, and felt very chilled, could not get warm, he was worried he had the COVID 19 infection. He denies any chest discomfort, denies any cough. No diarrhea, no abdominal pain. Imaging to the emergency department for evaluation, chest x-ray was completed s howing diffuse bilateral airspace infiltrates without significant change compared last chest x-ray from November 2019. Lab work showed a mild leukocytosis, d-dimer was 1.86, electrolytes and renal profile were unremarkable, pro-calcitonin was negative at 0.10, carotid artery was negative, influenza screen was negative, CTA chest was obtained and negative for pulmonary embolism, did show right tiny pleural effusion with right mid to lower lung multifocal irregular consolidation with the possibility of acute infectious process. Patient was started on a combination of azithromycin and Levaquin w [facility] we will provide down to Levaquin, patient looks comfortable today, breathing comfortably, states he is already feeling better, no hemoptysis, no worsening shortness of breath, vital stable overnight. Review of Systems All systems: negative Constitutional: Reports fever, Denies chills Eyes: denies blurred vision, denies pain Ears, nose, mouth and throat: Denies headache, Denies sore throat Cardiovascular: Denies chest pain, Denies shortness of breath Respiratory: Denies cough Gastrointestinal: Denies abdominal pain, Denies diarrhea, Denies nausea, Denies vomiting Musculoskeletal: Denies myalgias Integumentary: Denies pruritus, Denies rash Neurological: Denies numbness, Denies weakness Psychiatric: Denies anxiety, Denies depression Endocrine: Denies fatigue, Denies weight change Past Medical History Past Medical History: Cancer, COPD, GERD/Reflux, GI Bleed Additional Past Medical History / Comment(s): Other hx: COPD, history of right hemidiaphragmatic paralysis post plication, Bladder cancer with BCG and tumor removal, R testicular cancer with orchiectomy/radiation, chronic back and cervical pain, frequent debilitating migraines, bilateral sciatica, upper GI bleeds, hiatal hernia, gastritis, Diego's palsy, 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 Last Myocardial Infarction Date:: 05/25/14 History of Any Multi-Drug Resistant Organisms: None Reported Past Surgical History: Adenoidectomy, Appendectomy, Back Surgery, Cholecystectomy, Heart Catheterization, Hernia Repair, Orthopedic Surgery, Tonsillectomy Additional Past Surgical History / Comment(s): 08/03/15 EGD colonoscopy,l cardiac cath, several back sx including laminectomy, spinous process removed T11 and T12/cage and arturo, bilateral arthroscopic knee surgeries, left thumb surgeries with rt one having titanium joint, L rotator cuff repair, several nasal polypectomies, RFA cervical/back, R/L inguinal hernia repairs, rt orchiectomy; diaphragmatic hernia repair 03/2019 section of sigmoid colon removed. pt had a back simulator put in his left hip for [facility] pain at [facility]. Past Anesthesia/Blood Transfusion Reactions: No Reported Reaction Past Psychological History: Depression Additional Psychological History / Comment(s): Patient resides with his spouse of 55 yrs. He has chronic pain and debilitating migraines. He has a cane and walker which he uses prn. He has falls. He drives some but spouse does most of the driving. Spouse works afternoons at [employer] in patient check in/previous MRI. Smoking Status: Former smoker Past Alcohol Use History: None Reported Additional Past Alcohol Use History / Comment(s): Pt started smoking in 1959 and quit cigarettes in 2003, smoked 1 1/2ppd Past Drug Use History: None Reported - Past Family History Father Family Medical History: Cancer Additional Family Medical History / Comment(s): Father of stomach ca at the age of 65 yrs. Mother Family Medical History: No Reported History Additional Family Medical History / Comment(s): Mother of "old age". She was 83 yrs old Brother(s) Family Medical History: Diabetes Mellitus Additional Family Medical History / Comment(s): brain tumor Sister(s) Family Medical History: Diabetes Mellitus Additional Family Medical History / Comment(s): breast ca (sisters) Medications and Allergies Home Medications Medication Instructions Recorded Confirmed Type Omeprazole 40 mg PO DAILY 08/17/18 01/21/20 History Fluticasone/Salmeterol [Advair 1 puff INHALATION RT-BID 01/15/19 01/21/20 History 500-50 Diskus] Ipratropium-Albuterol Nebulize 3 ml INHALATION RT-QID 02/26/19 01/21/20 History [Duoneb 0.5 mg-3 mg/3 ml Soln] Albuterol Sulfate [Ventolin HFA] 2 puff INHALATION RT-QID PRN 09/09/19 01/21/20 History Methocarbamol [Robaxin-750] 750 mg PO TID 09/09/19 01/21/20 History Umeclidinium Taylors [Incruse 1 puff INHALATION RT-DAILY 09/09/19 01/21/20 History Ellipta] Acetaminophen Tab [Tylenol] 1,000 mg PO ONCE PRN 01/21/20 01/21/20 History Levofloxacin [Levaquin] 750 mg PO DAILY 5 Days #5 tab 01/21/20 Rx predniSONE 50 mg PO DAILY 5 Days #5 tab 01/21/20 Rx Allergies Allergy/AdvReac Type Severity Reaction Status Date / Time chocolate flavor Allergy TRIGGERS Verified 01/21/20 15:20 MIGRAINE Iodinated Contrast Media Allergy Anaphylaxis Verified 01/21/20 15:20 [Iodinated Contrast Media - IV Dye] iodine Allergy Anaphylaxis Verified 01/21/20 15:20 peanut Allergy TRIGGERS Verified 01/21/20 15:20 MIGRAINES Penicillins Allergy Anaphylaxis Verified 01/21/20 15:20 Sulfa (Sulfonamide Allergy Anaphylaxis Verified 01/21/20 15:20 Antibiotics) fentanyl AdvReac Severe SEVERE Verified 01/21/20 15:20 MIGRAINES adhesive AdvReac tears skin Verified 01/21/20 15:20 banana AdvReac HEADACHE Verified 01/21/20 15:20 gabapentin AdvReac Confusion Verified 01/21/20 15:20 tree nut [Nut] AdvReac HEADACHE Verified 01/21/20 15:20 yellow dye AdvReac HEADACHE Verified 01/21/20 15:20 OPIODS AdvReac Severe MIGRAINES Uncoded 01/21/20 15:20 Physical Exam Vitals: Vital Signs Temp Pulse Pulse Resp BP BP Pulse Ox 01/22/20 03:00 97.0 F L 90 16 123/76 94 L 01/21/20 21:00 97.6 F 103 H 95 H 135/82 95 01/21/20 20:22 95 01/21/20 16:03 99.3 F 01/21/20 15:21 86 18 153/88 94 L 01/21/20 15:00 86 18 01/21/20 14:02 79 16 124/78 99 01/21/20 11:46 111 H 16 129/79 97 01/21/20 10:58 16 Intake and Output 01/21/20 01/22/20 01/22/20 22:59 06:59 14:59 Intake Total 200 Balance 200 Intake: Oral 200 Other: Voiding Method Toilet # Voids 1 2 Weight 68.039 kg GENERAL EXAM: Alert, very pleasant, 74-year-old white male, on 2 L of oxygen the pulse ox 95% comfortable in no apparent distress. HEAD: Normocephalic/atraumatic. EYES: Normal reaction of pupils, equal size. Conjunctiva pink, sclera white. NOSE: Clear with pink turbinates. THROAT: No erythema or exudates. NECK: No masses, no JVD, no thyroid enlargement, no adenopathy. CHEST: No chest wall deformity. Symmetrical expansion. LUNGS: Equal air entry with no crackles, wheeze, rhonchi or dullness. CVS: Regular rate and rhythm, normal S1 and S2, no gallops, no murmurs, no rubs ABDOMEN: Soft, nontender. No hepatosplenomegaly, normal bowel sounds, no guarding or rigidity. EXTREMITIES: No clubbing, no edema, no cyanosis, 2+ pulses and upper and lower extremities. MUSCULOSKELETAL: Muscle strength and tone normal. SPINE: No scoliosis or deformity SKIN: No rashes CENTRAL NERVOUS SYSTEM: Alert and oriented -3. No focal deficits, tone is normal in all 4 extremities. PSYCHIATRIC: Alert and oriented -3. Appropriate affect. Intact judgment and insight. Results - Laboratory Findings CBC and BMP: 01/22/20 09:15 01/22/20 09:15 PT/INR, D-dimer PT 9.7 sec (9.0-12.0) 01/21/20 10:26 INR 0.9 (<1.2) 01/21/20 10:26 D-Dimer 1.86 mg/L FEU (<0.60) H 01/21/20 10:26 Abnormal lab findings: Abnormal Labs 01/21/20 01/21/20 01/21/20 10:26 10:26 10:26 WBC 13.6 H Neutrophils # 11.2 H Lymphocytes # D-Dimer 1.86 H Sodium Glucose 103 H Procalcitonin 01/21/20 01/22/20 01/22/20 10:26 09:15 09:15 WBC 17.8 H Neutrophils # 16.7 H Lymphocytes # 0.7 L D-Dimer Sodium 135 L Glucose 202 H Procalcitonin 0.10 H - Diagnostic Findings Chest x-ray: report reviewed, image reviewed CT scan - chest: report reviewed, image reviewed Assessment and Plan Plan: Assessment: #1. Acute community acquired pneumonia in the right lung with tiny right parapneumonic effusion, patient ruled out for COVID 19, influenza screen is negative #2. History of chronic right hemidiaphragmatic paralysis, status post surgical repair #3. Chronic hypoxic respiratory failure on home oxygen at bedtime #4. Stage 3 COPD with baseline FEV1 of 43% of predicted #5. GERD/reflux #6. History of sigmoid stricture related to recurrent diverticulitis and is post a sigmoid colectomy #7. Former smoker #8. History Of bladder cancer with BCG and tumor removal #9. History of testicular cancer #10. History of Diego's palsy Plan: Patient is doing well, we'll simplify his antibiotics to Levaquin only, continue with current medical treatment, vital signs stable overnight, patient ruled out for COVID 19 and influenza. If she continues to be stable and improve we'll consider discharge home on oral antibiotics tomorrow I performed a history & physical examination of the patient and discussed their management with my nurse practitioner, Ruchi Couch. I reviewed the nurse practitioner's note and agree with the documented findings and plan of care. Lung sounds are positive for diminished breath sounds. The findings and the impression was discussed with the patient. I attest to the documentation by the nurse practitioner. Time with Patient: Greater than 30
[2020-01-22 11:29] LABS: Glucose,Whole Blood 205 mg/dL (75-99)
--- NOTE | 2020-01-22 11:31 | XR ---
EXAMINATION TYPE: XR chest 2V DATE OF EXAM: 01/22/2020 CLINICAL HISTORY: pneumonia. TECHNIQUE: Frontal and lateral view of the chest. COMPARISON: 01/21/2020 chest radiograph FINDINGS: The cardiomediastinal silhouette is within normal limits for size. Emphysematous changes. Multifocal right mid and basilar patchy airspace opacities are mildly decreased versus 01/21/2020. Re demonstrated small right pleural effusion. No pneumothorax. IMPRESSION: Right patchy airspace opacities are mildly decreased versus 01/21/2020. Redemonstrated s mall right pleural effusion.
[2020-01-22] MEDS: MULTIVITAMINS, THERA 1 EACH TAB PO SCH (11:55)
[2020-01-22] MEDS: INSULIN ASPART (NovoLOG) 100 UNIT/ML VIAL SQ SCH ×3 (11:56→21:22)
[2020-01-22] MEDS: TIOTROPIUM 18 MCG/PUFF INHALER INHALATION SCH (12:38)
[2020-01-22] MEDS ORDERED: LEVOFLOXACIN 500MG-D5W PMX 500 MG in DEXTROSE/WATER 1 100ML.BAG IVPB SCH (14:00)
[2020-01-22] MEDS: HYDROmorphone 0.5 MG/0.5 ML SYRINGE IVP PRN ×2 (15:27→21:22)
--- NOTE | 2020-01-22 15:37 | PN ---
PROGRESS NOTE DATE OF SERVICE: 01/22/2020 I am covering for . This is a 74-year-old gentleman who was admitted with COPD exacerbation, also had possibly gram-negative pneumonia. COVID-19 has been ruled out. The patient had elevated D-dimer with no evidence of pulmonary embolism. The most recent chest x-ray was reviewed by me personally showed no evidence of pneumonia mainly on the right side. PAST MEDICAL HISTORY: History reviewed. REVIEW OF SYSTEMS: CARDIOVASCULAR SYSTEM: No angina. RESPIRATORY: As mentioned dementia : As mentioned earlier. CURRENT MEDICATIONS: Reviewed include Tylenol. 1. Atlantic. 2. Ventolin. 3. Xanax, heparin NovoLog Levaquin, Solu-Medrol multivitamin, Protonix Restoril. 4. Spiriva. PHYSICAL EXAMINATION: Alert oriented pulse 87 blood pressure 128/83, respirations 16, temperature 98.1, pulse ox 96% on 2 L HEENT: Normal. NECK: No jugular venous distension. RESPIRATORY SYSTEM: Breath sounds diminished at the bases, bilateral scattered rhonchi, no crackles. ABDOMEN: Soft, nontender. LEGS: No edema, no cyanosis. NERVOUS SYSTEM: No focal deficits. LABS: WBC 17.8, hemoglobin is 14.6, sodium 135, glucose is 205, COVID-19 Influenza negative. ASSESSMENT: 1. Chronic obstructive pulmonary disease acute exacerbation with acute right lower lobe pneumonia possibly gram-negative. 2. COVID-19 ruled out. 3. Elevated D-dimer without any evidence of pulmonary embolism. 4. Increased WBC. 5. Gastroesophageal reflux disease. 6. History of gastrointestinal bleed. 7. History of right hemidiaphragmatic paralysis with plication. 8. History of bladder cancer with BCG and tumor removal. 9. History of testicular cancer next history of chronic back pain DJD. 10.History of Diego's palsy. 11.History of MRSA history related to the recurrent diverticulitis sigmoid colectomy next history of appendectomy next history of back surgery history of depression. 12.History of nicotine dependence. 13.FULL CODE. RECOMMENDATIONS AND DISCUSSION: I recommend to continue current management continue recommend IV antibiotics and continue with IV steroids. Monitor blood sugars closely. Intensive bronchodilator treatment, otherwise incentive spirometry. Guarded prognosis because of multiple complex medical issues. Further recommendations to follow. MMODL / IJN: [id number] /
[2020-01-22 16:52] LABS: Glucose,Whole Blood 142 mg/dL (75-99)
[2020-01-22 21:13] LABS: Glucose,Whole Blood 183 mg/dL (75-99)
[2020-01-23] MEDS: HYDROmorphone 0.5 MG/0.5 ML SYRINGE IVP PRN (03:25)
[2020-01-23 04:03] VITALS: TEMP 97.7
[2020-01-23] MEDS: methylPREDNISolone SOD SUCCI 125 MG/2 ML VIAL IV SCH ×2 (05:51→11:49)
[2020-01-23] MEDS: HYDROcodone/APAP 5-325MG 1 EACH TAB PO PRN (05:52)
[2020-01-23 07:39] LABS: Glucose,Whole Blood 143 mg/dL (75-99)
[2020-01-23] MEDS: PANTOPRAZOLE 40 MG TABLET PO SCH (07:47)
[2020-01-23] MEDS: HEPARIN SODIUM,PORCINE 5,000 UNIT/ML 1 ML VIAL SQ SCH (07:47)
[2020-01-23] MEDS: INSULIN ASPART (NovoLOG) 100 UNIT/ML VIAL SQ SCH ×2 (07:48→11:49)
[2020-01-23] MEDS: methocarbamoL 750 MG TAB PO SCH (07:48)
[2020-01-23 07:49] VITALS: BP 129/63; PULSE 70; RESP 16
[2020-01-23 08:00] LABS: Basophils % (A) 0 %; Eosinophils % (A) 0 %; HCT 42.6 % (39.0-53.0); Lymphocytes # (A) 0.6 k/uL (1.0-4.8); Lymphocytes % (A) 3 %; MCH 32.3 pg (25.0-35.0); MCHC 32.9 g/dL (31.0-37.0); MCV 98.2 fL (80.0-100.0); Mean Platelet Volume 7.9; Monocytes # (A) 0.9 k/uL (0-1.0); Monocytes % (A) 4 %; Neutrophils # (A) 20.7 k/uL (1.3-7.7); Neutrophils % (A) 93 %; Platelet Count 326 k/uL (150-450); RBC 4.34 m/uL (4.30-5.90); RDW 13.9 % (11.5-15.5); WBC 22.4 k/uL (3.8-10.6)
[2020-01-23] MEDS: ALBUTEROL HFA INHALER INHALATION SCH ×2 (10:33→11:25)
[2020-01-23] MEDS: SYMBICORT 160-4.5 MCG INHALER INHALATION SCH (11:24)
[2020-01-23] MEDS: TIOTROPIUM 18 MCG/PUFF INHALER INHALATION SCH (11:25)
[2020-01-23 11:31] LABS: Glucose,Whole Blood 147 mg/dL (75-99)
[2020-01-23] MEDS: MULTIVITAMINS, THERA 1 EACH TAB PO SCH (11:48)
[2020-01-23 13:39] LABS: Anion Gap 10.7 mmol/L (4.00-12.00); BUN/Creat Ratio 31.25 Ratio (12.00-20.00); Calcium 9.7 mg/dL (8.7-10.3); Carbon Dioxide 24.3 mmol/L (21.6-31.8); Potassium 4.4 mmol/L (3.5-5.5)
--- NOTE | 2020-01-23 15:25 | P.PN ---
Subjective Progress Note Date: 01/23/20 Principal diagnosis: Community acquired pneumonia The patient is seen today in 01/23/2020 in follow-up on the regular medical floor. He is awake and alert in no acute distress. No worsening shortness of breath, cough or congestion. No fever, chills or night sweats. He is melanie ntaining good O2 saturation in the 90s on 2 L/m per nasal cannula. He remains on DuoNeb inhalations, Symbicort, Spiriva, IV Solu-Medrol, Levaquin. Objective - Vital Signs Vital signs: Vital Signs Temp 97.7 F 01/23/20 07:48 Pulse 70 01/23/20 07:56 Resp 16 01/23/20 07:56 BP 129/63 01/23/20 07:48 Pulse Ox 94 L 01/23/20 07:48 Intake & Output 01/22/20 01/23/20 01/23/20 18:59 06:59 18:59 Intake Total 990 240 Balance 990 240 Intake: IV 350 Azithromycin 500 mg In 250 Sodium Chloride 0.9% 250 ml @ 250 mls/hr IVPB DAILY [facility] Rx#:[id number] Levofloxacin 500Mg-D5w 100 Pmx 500 mg In Dextrose/ Water 1 100ml.bag @ 100 mls/hr IVPB Q24H [facility] Rx#: [id number] Oral 640 240 Other: Voiding Method Toilet Toilet Toilet # Voids 2 3 - Exam GENERAL EXAM: Alert, active, pleasant 74-year-old gentleman, on 2 L nasal cannula, comfortable in no apparent distress. HEAD: Normocephalic. EYES: Normal reaction of pupils, equal size. NOSE: Clear with pink turbinates. THROAT: No erythema or exudates. NECK: No masses, no JVD. CHEST: No chest wall deformity. LUNGS: Equal air entry with few scattered rhonchi of the right lung, diminished. CVS: S1 and S2 normal with no audible murmur, regular rhythm. ABDOMEN: No hepatosplenomegaly, normal bowel sounds, no guarding or rigidity. SPINE: No scoliosis or deformity SKIN: No rashes CENTRAL NERVOUS SYSTEM: No focal deficits, tone is normal in all 4 extremities. EXTREMITIES: There is no peripheral edema. No clubbing, no cyanosis. Peripher al pulses are intact. - Labs CBC & Chem 7: 01/23/20 07:21 01/23/20 07:21 Labs: Abnormal Lab Results - Last 24 Hours (Table) 01/22/20 01/22/20 01/23/20 Range/Units 16:50 21:11 06:54 WBC (3.8-10.6) k/uL Neutrophils # (1.3-7.7) k/uL Lymphocytes # (1.0-4.8) k/uL BUN/Creatinine Ratio (12.00-20.00) Ratio Glucose (70-110) mg/dL POC Glucose (mg/dL) 142 H 183 H 143 H (75-99) mg/dL 01/23/20 01/23/20 01/23/20 Range/Units 07:21 07:21 11:13 WBC 22.4 H (3.8-10.6) k/uL Neutrophils # 20.7 H (1.3-7.7) k/uL Lymphocytes # 0.6 L (1.0-4.8) k/uL BUN/Creatinine Ratio 31.25 H (12.00-20.00) Ratio Glucose 151 H (70-110) mg/dL POC Glucose (mg/dL) 147 H (75-99) mg/dL Microbiology - Last 24 Hours (Table) 01/21/20 13:51 Blood Culture - Preliminary Blood No Growth after 24 hours Assessment and Plan Assessment: 1 Acute community-acquired pneumonia in the right lung with tiny right parapneumonic effusion, patient ruled out for CoVID 19 2 History of right hemidiaphragmatic paralysis, status post surgical repair 3 Chronic hypoxic respiratory failure on home oxygen at bedtime 4 Stage III COPD with baseline FEV1 value of 43% of predicted 5 Gastroesophageal reflux disease 6 History of sigmoid stricture related to recurrent diverticulitis and is post sigmoid colectomy 7 Former Smoker 8 History of Bladder Cancer with BCG and Tumor Removal 9 History of Testicular Cancer 10 History of Diego's Palsy Plan: The Patient Was Seen and Evaluated by Dr. Flor Currently Stable from the Pulmonary Standpoint Cleared for Discharge Complete course of prednisone starting at 40 mg daily for 4 days Complete Course of Antibiotics Continue his home pulmonary medications Follow-Up in the Office in 1-2 Weeks' Time I, the cosigning physician, performed a history & physical examination of the patient. Lungs sounds with few scattered rhonchi in the right lung, diminished. Maintaining good O2 saturations in the 90s on 2 L nasal cannula I discussed the assessment and plan of care with my nurse practitioner, Sade Lorenzo. I attest to the above note as dictated by her.
--- NOTE | 2020-01-24 06:44 | DS ---
DISCHARGE SUMMARY DATE OF SERVICE: 01/23/2020 FINAL DIAGNOSIS: 1. Chronic obstructive pulmonary disease exacerbation with acute right lower lobe pneumonia, possibly gram-negative, improved. 2. COVID-19 ruled out. 3. Acute D-dimer without any evidence of pulmonary embolism. 4. Increased WBC. 5. Gastroesophageal reflux disease. 6. History of gastrointestinal bleed. 7. History of right hemidiaphragmatic paralysis with plication. 8. History of bladder cancer with BCG and tumor removal. 9. History of testicular cancer. 10.History of chronic back pain and degenerative joint disease. 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 12.History of MRSA. 13.History related to recurrent diverticulitis, sigmoidectomy, colectomy. 14.History of appendectomy. 15.History of back surgery. 16.History of depression. 17.History of nicotine dependence. 18.FULL CODE. DISCHARGE DISPOSITION: The patient will be discharged in stable condition with guarded. HISTORY OF PRESENT ILLNESS: This is a 74-year-old gentleman with a past medical history of multiple medical problems , admitted with COPD acute exacerbation as well as features of pneumonia. Patient was given antibiotics and improved significantly. Dr. Flor saw the patient and cleared the patient for discharge. PHYSICAL EXAMINATION: On exam vitals stable. Cardiovascular S1 and S2. Abdomen soft. Nervous system: No focal deficits. DISCHARGE INSTRUCTIONS: Discharge diet is cardiac. Activity is limited until followup. Follow up with in 1-2 days. MEDICATIONS: 1. Fluticasone salmeterol. 2. Advair 1 puff b.i.d. 3. DuoNeb q.i.d. and p.r.n. 4. incruse elipta as before. 5. Omeprazole 40 mg daily. 6. Robaxin 750 p.o. t.i.d. 7. Tylenol 1000 mg daily. 8. Ventolin p.r.n. 9. Levaquin 750 p.o. daily for 5 days. 10.Multivitamins 1 p.o. daily. 11.Prednisone taper 40 mg daily for 3 days, 30 for 3 days, 20 for 3 days 10 for 3 days. MMODL / IJN: [id number] / MTDD
== END 2020-01-23 13:27 | disposition home or self-care (01) | DRG 190 ==
LOC: EC 09:48 → 1SOBS 13:28 → OBSVTOIN 01-22 13:31 → 4SSUR 01-22 17:35
PROVIDERS: ADMIT Hospitalist; ATTEND Hospitalist
DX: J44.1 Chronic obstructive pulmonary disease with (acute) exacerbation (principal); J15.6 Pneumonia due to other Gram-negative bacteria; J96.11 Chronic respiratory failure with hypoxia; K21.9 Gastro-esophageal reflux disease without esophagitis; F32.9 Major depressive disorder, single episode, unspecified; J44.0 Chronic obstructive pulmonary disease with (acute) lower respiratory infection; M19.90 Unspecified osteoarthritis, unspecified site; G51.0 Bell's palsy; M54.31 Sciatica, right side; Z20.828 Contact with and (suspected) exposure to other viral communicable diseases; I25.2 Old myocardial infarction; Z85.51 Personal history of malignant neoplasm of bladder; Z90.49 Acquired absence of other specified parts of digestive tract; Z87.891 Personal history of nicotine dependence; Z86.14 Personal history of Methicillin resistant Staphylococcus aureus infection; Z85.47 Personal history of malignant neoplasm of testis; Z83.3 Family history of diabetes mellitus; Z80.3 Family history of malignant neoplasm of breast; Z80.0 Family history of malignant neoplasm of digestive organs; Z79.899 Other long term (current) drug therapy; Z91.041 Radiographic dye allergy status; Z88.5 Allergy status to narcotic agent; Z91.010 Allergy to peanuts; Z88.0 Allergy status to penicillin; Z88.2 Allergy status to sulfonamides; Z91.018 Allergy to other foods; Z91.09 Other allergy status, other than to drugs and biological substances; Z90.89 Acquired absence of other organs; Z98.890 Other specified postprocedural states; Z99.81 Dependence on supplemental oxygen
CPT/HCPCS: 36415; 71045; 71046; 71275; 80048; 80053; 82728; 83605; 83615; 83735; 84145; 85025; 85379; 85610; 85730; 86140; 87040; 87502; 87635; 93005; 94640; 96361; 96374; 96375; 99285

== ENCOUNTER 2020-02-15 12:02 | Emergency (ER) | payer MEDICAID, MEDICARE ==
[2020-02-15 12:27] VITALS: TEMP 98.2
[2020-02-15] MEDS ORDERED: DEXAMETHASONE SOD PHOSPHATE 10 MG/ML 1 ML VIAL IV STA (12:53)
[2020-02-15] MEDS ORDERED: diphenhydrAMINE 50 MG/ML 1 ML VIAL IVP STA (12:53)
[2020-02-15] MEDS ORDERED: FAMOTIDINE 20 MG/2 ML VIAL IV STA (12:53)
--- NOTE | 2020-02-15 12:56 | ED ---
General Adult HPI - General Chief complaint: Allergic Reaction Stated complaint: poss allergic rxn Time Seen by Provider: 02/15/20 12:40 Source: patient Mode of arrival: ambulatory Limitations: no limitations - History of Present Illness Initial comments: Dictation was produced using ideasoft dictation software. please excuse any grammatical, word or spelling errors. This patient was cared for during a federal and state declared state of emergency secondary to Covid 19 Chief Complaint: 74-year-old male presents with a reaction from tramadol. History of Present Illness: 74-year-old male he began taking tramadol yesterday. Patient states that his first dose was yesterday afternoon. At approximately 8 PM yesterday he began having some itching to the skin. 3 and this morning he began having itching and watery eyes and some swelling to his anterior neck. Patient has no other complaints at this time. He does eyes any trouble breathing. No abdominal pain. No sensation of throat swelling. He denies abdominal pain. No nausea vomiting diarrhea. The ROS documented in this emergency department record has been reviewed and confirmed by me. Those systems with pertinent positive or negative responses have been documented in the HPI. All other systems are other negative and/or noncontributory. PHYSICAL EXAM: General Impression: Alert and oriented x3, not in acute distress HEENT: Normocephalic atraumatic, extra-ocular movements intact, pupils equal and reactive to light bilaterally, mucous membranes moist. Cardiovascular: Heart regular rate and rhythm Chest: Able to complete full sentences, no retractions, no tachypnea, no wheezing Abdomen: abdomen soft, non-tender, non-distended, no organomegaly Musculoskeletal: Pulses present and equal in all extremities, no peripheral edema Motor: no focal deficits noted Neurological: CN II-XII grossly intact, no focal motor or sensory deficits noted Skin: Intact with no visualized rashes no urticaria Psych: Normal affect and mood ED course:- 74year-old male presents with acute drug reaction. Vital signs upon arrival are within acceptable limits. Patient does not have any features to indicate epinephrine administration. Patient given Decadron, Benadryl and Pepcid with improvement of symptoms. Patient states he also has a headache. Patient suffers from chronic headaches. Patient given Toradol. Patient observed in emergency department for approximately 2 hours with no acute issues. Patient reevaluated at 2 PM and is well-appearing reports improvement of symptoms. Patient be discharged. - Related Data Home Medications Medication Instructions Recorded Confirmed Omeprazole 40 mg PO DAILY 08/17/18 02/15/20 Fluticasone/Salmeterol [Advair 1 puff INHALATION RT-BID 01/15/19 02/15/20 500-50 Diskus] Ipratropium-Albuterol Nebulize 3 ml INHALATION RT-QID 02/26/19 02/15/20 [Duoneb 0.5 mg-3 mg/3 ml Soln] Albuterol Sulfate [Ventolin HFA] 2 puff INHALATION RT-QID PRN 09/09/19 02/15/20 Methocarbamol [Robaxin-750] 750 mg PO TID 09/09/19 02/15/20 Umeclidinium [place] [Incruse 1 puff INHALATION RT-DAILY 09/09/19 02/15/20 Ellipta] Acetaminophen Tab [Tylenol] 1,000 mg PO Q6H PRN 01/21/20 02/15/20 Linaclotide [Linzess] 145 mcg PO DAILY 02/15/20 02/15/20 Multivitamins, Thera [Multivitamin 1 tab PO DAILY 02/15/20 02/15/20 (formulary)] Ondansetron Odt [Zofran Odt] 8 mg PO QID PRN 02/15/20 02/15/20 Allergies Allergy/AdvReac Type Severity Reaction Status Date / Time chocolate flavor Allergy TRIGGERS Verified 02/15/20 13:16 MIGRAINE Iodinated Contrast Media Allergy Anaphylaxis Verified 02/15/20 13:16 [Iodinated Contrast Media - IV Dye] iodine Allergy Anaphylaxis Verified 02/15/20 13:16 peanut Allergy TRIGGERS Verified 02/15/20 13:16 MIGRAINES Penicillins Allergy Anaphylaxis Verified 02/15/20 13:16 Sulfa (Sulfonamide Allergy Anaphylaxis Verified 02/15/20 13:16 Antibiotics) tramadol Allergy Swelling Verified 02/15/20 13:16 fentanyl AdvReac Severe SEVERE Verified 02/15/20 13:16 MIGRAINES adhesive AdvReac tears skin Verified 02/15/20 13:16 banana AdvReac HEADACHE Verified 02/15/20 13:16 gabapentin AdvReac Confusion Verified 02/15/20 13:16 tree nut [Nut] AdvReac HEADACHE Verified 02/15/20 13:16 yellow dye AdvReac HEADACHE Verified 02/15/20 13:16 OPIODS AdvReac Severe MIGRAINES Uncoded 02/15/20 12:21 Review of Systems ROS Statement: Those systems with pertinent positive or pertinent negative responses have been documented in the HPI. ROS Other: All systems not noted in ROS Statement are negative. 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 Last Myocardial Infarction Date:: 05/25/14 History of Any Multi-Drug Resistant Organisms: None Reported Past Surgical History: Adenoidectomy, Appendectomy, Back Surgery, Cholecystectomy, Heart Catheterization, Hernia Repair, Orthopedic Surgery, Tonsillectomy Additional Past Surgical History / Comment(s): 08/03/15 EGD colonoscopy,l cardiac cath, several back sx including laminectomy, spinous process removed T11 and T12/cage and arturo, bilateral arthroscopic knee surgeries, left thumb surgeries with rt one having titanium joint, L rotator cuff repair, several nasal polypectomies, RFA cervical/back, R/L inguinal hernia repairs, rt orchiectomy; diaphragmatic hernia repair 03/2019 section of sigmoid colon removed. pt had a back simulator put in his left hip for bakc pain at [facility]. Past Anesthesia/Blood Transfusion Reactions: No Reported Reaction Past Psychological History: Depression Smoking Status: Former smoker Past Alcohol Use History: None Reported Past Drug Use History: None Reported - Past Family History Father Family Medical History: Cancer Additional Family Medical History / Comment(s): Father of stomach ca at the age of 65 yrs. Mother Family Medical History: No Reported History Additional Family Medical History / Comment(s): Mother of "old age". She was 83 yrs old Brother(s) Family Medical History: Diabetes Mellitus Additional Family Medical History / Comment(s): brain tumor Sister(s) Family Medical History: Diabetes Mellitus Additional Family Medical History / Comment(s): breast ca (sisters) General Exam Limitations: no limitations Course Vital Signs 02/15/20 12:22 Temperature 98.2 F Pulse Rate 72 Respiratory 18 Rate Blood Pressure 143/82 O2 Sat by Pulse 92 L Oximetry Disposition Clinical Impression: Allergic reaction Disposition: HOME SELF-CARE Condition: Good Instructions (If sedation given, give patient instructions): Allergy Antigen (By injection) Additional Instructions: Stop taking tramadol Is patient prescribed a controlled substance at d/c from ED?: No Referrals: Lul Garcia MD [Primary Care Provider] - 1-2 days Time of Disposition: 13:58
[2020-02-15] MEDS ORDERED: KETOROLAC 15 MG/ML 1 ML VIAL IVP STA (13:55)
[2020-02-15 14:14] VITALS: BP 136/75; PULSE 78; RESP 16
== END 2020-02-15 14:14 | disposition home or self-care (01) ==
LOC: EC 12:02
DX: R51.9 Headache, unspecified (principal); T40.425A Adverse effect of tramadol, initial encounter; G89.29 Other chronic pain; K21.9 Gastro-esophageal reflux disease without esophagitis; J44.9 Chronic obstructive pulmonary disease, unspecified; M54.9 Dorsalgia, unspecified; I25.2 Old myocardial infarction; Z79.899 Other long term (current) drug therapy; Z79.51 Long term (current) use of inhaled steroids; Z88.2 Allergy status to sulfonamides; Z88.0 Allergy status to penicillin; Z91.02 Food additives allergy status; Z91.041 Radiographic dye allergy status; Z91.048 Other nonmedicinal substance allergy status; Z91.010 Allergy to peanuts; Z88.5 Allergy status to narcotic agent; Z91.018 Allergy to other foods; Z88.8 Allergy status to other drugs, medicaments and biological substances; Z85.47 Personal history of malignant neoplasm of testis; Z87.891 Personal history of nicotine dependence; Z85.51 Personal history of malignant neoplasm of bladder
CPT/HCPCS: 99283; 96374; 96375 ×3; J1200; J1100; J1885

== ENCOUNTER → 2020-04-11 | Outpatient (CLI) | payer MEDICAID, MEDICARE ==
--- NOTE | 2020-04-11 11:18 | XR ---
EXAMINATION TYPE: XR ribs LT DATE OF EXAM: 04/11/2020 COMPARISON: NONE HISTORY: Pain TECHNIQUE: 3 views submitted FINDINGS: There is subsegmental changes left lower lobe. There is slight deformity involving the ante rolateral eighth rib which could be compatible with a minimally displaced fracture. Stimulator cathet er device overlying the thoracic spine. IMPRESSION: 1. Findings suspicious for a minimally displaced fracture anterolateral left eighth rib correlate wit h point tenderness. 2. Bibasilar atelectasis favored over pneumonia.
== END | disposition home or self-care (01) ==
LOC: RADXRMAIN 10:07
PROVIDERS: ATTEND Family Medicine
DX: J98.11 Atelectasis (principal)

== ENCOUNTER 2020-07-21 08:48 | Inpatient (IN) | payer MEDICARE ==
[2020-07-21] MEDS ORDERED: ACETAMINOPHEN TAB 500 MG TAB PO STA (09:27)
[2020-07-21] MEDS ORDERED: SODIUM CHLORIDE 0.9% 1,000 ML IV STA (09:28)
--- NOTE | 2020-07-21 09:32 | ED ---
General Adult HPI - General Chief complaint: Weakness Stated complaint: fatigue, fever Time Seen by Provider: 07/21/20 09:10 Source: patient, family, RN notes reviewed Mode of arrival: EMS Limitations: physical limitation - History of Present Illness Initial comments: Patient is a pleasant 75-year-old male presenting to the emergency Department with complaints of general weakness and fatigue. Patient has nausea and did vomit 2 or 3 times. No abdominal pain. No constipation or diarrhea. Patient has myalgias. Patient did have some shortness of breath that has essentially resolved. Patient does have a headache similar to his chronic migraines. No neck pain. Patient did have a fall during the night and was too weak to get up on his own. No isolated area of weakness. Left-sided facial weakness is chronic from previous Diego's palsy. No extremity weakness. No injury during the fall. No head injury or loss of consciousness. - Related Data Home Medications Medication Instructions Recorded Confirmed Ipratropium-Albuterol Nebulize 3 ml INHALATION RT-QID PRN 02/26/19 07/21/20 [Duoneb 0.5 mg-3 mg/3 ml Soln] Fluticasone/Umeclidin/Vilanter 1 puff INHALATION RT-DAILY 07/21/20 07/21/20 [Trelegy Ellipta 200-62.5-25] HYDROcodone/APAP 5-325MG [[place] 1 tab PO Q6H PRN 07/21/20 07/21/20 5-325] Omeprazole 40 mg PO DAILY 07/21/20 07/21/20 Allergies Allergy/AdvReac Type Severity Reaction Status Date / Time chocolate flavor Allergy TRIGGERS Verified 07/21/20 11:03 MIGRAINE Iodinated Contrast Media Allergy Anaphylaxis Verified 07/21/20 11:03 [Iodinated Contrast Media - IV Dye] iodine Allergy Anaphylaxis Verified 07/21/20 11:03 peanut Allergy TRIGGERS Verified 07/21/20 11:03 MIGRAINES Penicillins Allergy Anaphylaxis Verified 07/21/20 11:03 Sulfa (Sulfonamide Allergy Anaphylaxis Verified 07/21/20 11:03 Antibiotics) tramadol Allergy Swelling Verified 07/21/20 11:03 fentanyl AdvReac Severe SEVERE Verified 07/21/20 11:03 MIGRAINES adhesive AdvReac tears skin Verified 07/21/20 11:03 banana AdvReac HEADACHE Verified 07/21/20 11:03 gabapentin AdvReac Confusion Verified 07/21/20 11:03 tree nut [Nut] AdvReac HEADACHE Verified 07/21/20 11:03 yellow dye AdvReac HEADACHE Verified 07/21/20 11:03 OPIODS AdvReac Severe MIGRAINES Uncoded 02/15/20 12:21 Review of Systems ROS Statement: Those systems with pertinent positive or pertinent negative responses have been documented in the HPI. ROS Other: All systems not noted in ROS Statement are negative. Constitutional: Reports: chills Eyes: Denies: eye pain ENT: Denies: ear pain Respiratory: Denies: cough Cardiovascular: Denies: chest pain Endocrine: Reports: fatigue Gastrointestinal: Reports: nausea, vomiting. Denies: abdominal pain, diarrhea Genitourinary: Denies: dysuria Musculoskeletal: Denies: back pain Skin: Denies: rash Neurological: Reports: as per HPI, headache, weakness. Denies: confusion Past Medical History Past Medical History: Cancer, COPD, GERD/Reflux, GI Bleed Additional Past Medical History / Comment(s): Other hx: COPD, history of right hemidiaphragmatic paralysis post plication, Bladder cancer with BCG and tumor removal, R testicular cancer with orchiectomy/radiation, chronic back and cervical pain, frequent debilitating migraines, bilateral sciatica, upper GI bleeds, hiatal hernia, gastritis, Diego's palsy, 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 Last Myocardial Infarction Date:: 05/25/14 History of Any Multi-Drug Resistant Organisms: None Reported Past Surgical History: Adenoidectomy, Appendectomy, Back Surgery, Cholecystectomy, Heart Catheterization, Hernia Repair, Orthopedic Surgery, Tonsillectomy Additional Past Surgical History / Comment(s): 08/03/15 EGD colonoscopy,l cardiac cath, several back sx including laminectomy, spinous process removed T11 and T12/cage and arturo, bilateral arthroscopic knee surgeries, left thumb surgeries with rt one having titanium joint, L rotator cuff repair, several nasal polypectomies, RFA cervical/back, R/L inguinal hernia repairs, rt orchiectomy; diaphragmatic hernia repair 03/2019 section of sigmoid colon removed. pt had a back simulator put in his left hip for bakc pain at [facility]. Past Anesthesia/Blood Transfusion Reactions: No Reported Reaction Past Psychological History: Depression Smoking Status: Former smoker Past Alcohol Use History: None Reported Past Drug Use History: None Reported - Past Family History Father Family Medical History: Cancer Additional Family Medical History / Comment(s): Father of stomach ca at the age of 65 yrs. Mother Family Medical History: No Reported History Additional Family Medical History / Comment(s): Mother of "old age". She was 83 yrs old Brother(s) Family Medical History: Diabetes Mellitus Additional Family Medical History / Comment(s): brain tumor Sister(s) Family Medical History: Diabetes Mellitus Additional Family Medical History / Comment(s): breast ca (sisters) General Exam Limitations: physical limitation General appearance: alert, in no apparent distress Head exam: Present: atraumatic, normocephalic Eye exam: Present: normal appearance, PERRL, EOMI ENT exam: Present: mucous membranes dry Neck exam: Present: normal inspection. Absent: tenderness, meningismus Respiratory exam: Present: normal lung sounds bilaterally Cardiovascular Exam: Present: regular rate, normal rhythm GI/Abdominal exam: Present: soft. Absent: tenderness Extremities exam: Present: normal inspection Neurological exam: Present: alert, oriented X3, CN II-XII intact (Except for left facial weakness which is reported as chronic and unchanged) Expanded Neurological exam: Present: protecting the airway Speech: Present: fluid speech Motor strength exam: RUE: 5, LUE: 5, RLE: 5, LLE: 5 Eye Response: (4) open spontaneously Motor Response: (6) obeys commands Verbal Response: (5) oriented Psychiatric exam: Present: normal affect, normal mood Skin exam: Present: normal color Course Vital Signs 07/21/20 07/21/20 07/21/20 09:09 10:22 10:45 Temperature 99.0 F Pulse Rate 111 H 91 89 Respiratory 22 18 22 Rate Blood Pressure 103/64 81/57 85/56 O2 Sat by Pulse 88 L 93 L Oximetry 07/21/20 07/21/20 11:29 12:32 Temperature Pulse Rate 89 90 Respiratory 22 16 Rate Blood Pressure 86/55 117/63 O2 Sat by Pulse 93 L 96 Oximetry - Reevaluation(s) Reevaluation #1: 07/21/20 13:51 Patient does meet criteria for severe sepsis diagnosed at 1345. Blood culture, lactic acid, IV antibiotics and fluid boluses have all been ordered. Patient has now had 2 systolic blood pressures over 90 following fluid bolus. EKG Findings - EKG Comments: EKG Findings:: Sinus tachycardia with a rate of 104. OR 152. QRS 108. QT 350. QTC 460. Left axis. Complete right bundle-branch block. No acute ST change. Medical Decision Making - Medical Decision Making Patient reevaluated and resting comfortably in bed. Patient family updated on results and plan. Case was discussed with , who will admit his patient. Patient has previously seen Dr. Facundo Spivey in and he will be placed on consult. - Lab Data Result diagrams: 07/21/20 10:50 07/21/20 10:50 Lab Results 07/21/20 07/21/20 07/21/20 Range/Units 09:38 09:38 10:50 WBC 8.7 (3.8-10.6) k/uL RBC 5.13 (4.30-5.90) m/uL Hgb 16.9 (13.0-17.5) gm/dL Hct 52.8 (39.0-53.0) % MCV 102.9 H (80.0-100.0) fL MCH 33.0 (25.0-35.0) pg MCHC 32.1 (31.0-37.0) g/dL RDW 14.6 (11.5-15.5) % Plt Count 190 (150-450) k/uL MPV 7.9 Neutrophils % 85 % Lymphocytes % 7 % Monocytes % 5 % Eosinophils % 1 % Basophils % 0 % Neutrophils # 7.4 (1.3-7.7) k/uL Lymphocytes # 0.6 L (1.0-4.8) k/uL Monocytes # 0.5 (0-1.0) k/uL Eosinophils # 0.0 (0-0.7) k/uL Basophils # 0.0 (0-0.2) k/uL Macrocytosis Slight PT (9.0-12.0) sec INR (<1.2) APTT (22.0-30.0) sec Sodium (137-145) mmol/L Potassium (3.5-5.1) mmol/L Chloride (98-107) mmol/L Carbon Dioxide (22-30) mmol/L Anion Gap mmol/L BUN (9-20) mg/dL Creatinine (0.66-1.25) mg/dL Est GFR (CKD-EPI)AfAm (>60 ml/min/1.73 sqM) Est GFR (CKD-EPI)NonAf (>60 ml/min/1.73 sqM) Glucose (74-99) mg/dL Plasma Lactic Acid Finesse (0.7-2.0) mmol/L Calcium (8.4-10.2) mg/dL Magnesium (1.6-2.3) mg/dL Total Bilirubin (0.2-1.3) mg/dL AST (17-59) U/L ALT (4-49) U/L Alkaline Phosphatase (38-126) U/L Lactate Dehydrogenase (313-618) U/L C-Reactive Protein (<1.0) mg/dL Total Protein (6.3-8.2) g/dL Albumin (3.5-5.0) g/dL Urine Color Yellow Urine Appearance Clear (Clear) Urine pH 5.0 (5.0-8.0) Ur Specific [place] 1.013 (1.001-1.035) Urine Protein Negative (Negative) Urine Glucose (UA) Negative (Negative) Urine Ketones Negative (Negative) Urine Blood Negative (Negative) Urine Nitrite Negative (Negative) Urine Bilirubin Negative (Negative) Urine Urobilinogen <2.0 (<2.0) mg/dL Ur Leukocyte Esterase Negative (Negative) Coronavirus (PCR) Not Detected (Not Detectd) 07/21/20 07/21/20 07/21/20 Range/Units 10:50 10:50 10:50 WBC (3.8-10.6) k/uL RBC (4.30-5.90) m/uL Hgb (13.0-17.5) gm/dL Hct (39.0-53.0) % MCV (80.0-100.0) fL MCH (25.0-35.0) pg MCHC (31.0-37.0) g/dL RDW (11.5-15.5) % Plt Count (150-450) k/uL MPV Neutrophils % % Lymphocytes % % Monocytes % % Eosinophils % % Basophils % % Neutrophils # (1.3-7.7) k/uL Lymphocytes # (1.0-4.8) k/uL Monocytes # (0-1.0) k/uL Eosinophils # (0-0.7) k/uL Basophils # (0-0.2) k/uL Macrocytosis PT 9.8 (9.0-12.0) sec INR 0.9 (<1.2) APTT 20.3 L (22.0-30.0) sec Sodium 140 (137-145) mmol/L Potassium 3.9 (3.5-5.1) mmol/L Chloride 105 (98-107) mmol/L Carbon Dioxide 29 (22-30) mmol/L Anion Gap 6 mmol/L BUN 19 (9-20) mg/dL Creatinine 0.96 (0.66-1.25) mg/dL Est GFR (CKD-EPI)AfAm 90 (>60 ml/min/1.73 sqM) Est GFR (CKD-EPI)NonAf 78 (>60 ml/min/1.73 sqM) Glucose 91 (74-99) mg/dL Plasma Lactic Acid F[place] 1.0 (0.7-2.0) mmol/L Calcium 9.3 (8.4-10.2) mg/dL Magnesium 1.8 (1.6-2.3) mg/dL Total Bilirubin 0.9 (0.2-1.3) mg/dL AST 31 (17-59) U/L ALT 29 (4-49) U/L Alkaline Phosphatase 72 (38-126) U/L Lactate Dehydrogenase 421 (313-618) U/L C-Reactive Protein 1.5 H (<1.0) mg/dL Total Protein 6.3 (6.3-8.2) g/dL Albumin 3.9 (3.5-5.0) g/dL Urine Color Urine Appearance (Clear) Urine pH (5.0-8.0) Ur Specific [place] (1.001-1.035) Urine Protein (Negative) Urine Glucose (UA) (Negative) Urine Ketones (Negative) Urine Blood (Negative) Urine Nitrite (Negative) Urine Bilirubin (Negative) Urine Urobilinogen (<2.0) mg/dL Ur Leukocyte Esterase (Negative) Coronavirus (PCR) (Not Detectd) - Radiology Data Radiology results: image reviewed (Chest x-ray shows right upper lobe airspace disease) Critical Care Time Critical Care Time: Yes Total Critical Care Time: 33 Disposition Clinical Impression: Severe sepsis, Pneumonia Disposition: ADMITTED IP TO THIS HOSP Condition: Serious Is patient prescribed a controlled substance at d/c from ED?: No Referrals: Lul Garcia MD [Primary Care Provider] - 1-2 days Decision Time: 13:53
--- NOTE | 2020-07-21 10:59 | XR ---
EXAMINATION TYPE: XR chest 2V DATE OF EXAM: 07/21/2020 COMPARISON: Chest x-ray 03/22/2020, CT chest 01/21/2020 HISTORY: Fever, cough TECHNIQUE: Frontal and lateral views of the chest are obtained. FINDINGS: Increased AP diameter chest may represent underlying COPD, is increased retrosternal airspa ce. Airspace disease is present in the right upper lobe. Patient is rotated, difficult to exclude vol ume loss in the right hemithorax, right hemidiaphragm remains elevated. Thoracic cord stimulator is s table. Cardiomediastinal silhouette is likely unchanged. Aorta is dense. No evident pneumothorax or p leural effusion. Minimal patchy basilar density on the left persists. IMPRESSION: Correlate for pneumonia, follow-up to resolution to exclude underlying mass. There is un derlying emphysema.
[2020-07-21 11:09] LABS: Basophils % (A) 0 %; Eosinophils % (A) 1 %; HCT 52.8 % (39.0-53.0); HGB 16.9 gm/dL (13.0-17.5); Lymphocytes # (A) 0.6 k/uL (1.0-4.8); Lymphocytes % (A) 7 %; MCHC 32.1 g/dL (31.0-37.0); MCV 102.9 fL (80.0-100.0); Macrocytosis Slight; Mean Platelet Volume 7.9; Monocytes # (A) 0.5 k/uL (0-1.0); Monocytes % (A) 5 %; Neutrophils # (A) 7.4 k/uL (1.3-7.7); Neutrophils % (A) 85 %; Platelet Count 190 k/uL (150-450); RBC 5.13 m/uL (4.30-5.90); RDW 14.6 % (11.5-15.5); WBC 8.7 k/uL (3.8-10.6)
[2020-07-21 11:21] LABS: Albumin 3.9 g/dL (3.5-5.0); C Reactive Protein 1.5 mg/dL (<1.0); Calcium 9.3 mg/dL (8.4-10.2); Magnesium 1.8 mg/dL (1.6-2.3); Potassium 3.9 mmol/L (3.5-5.1); Total Bilirubin 0.9 mg/dL (0.2-1.3); Total Protein 6.3 g/dL (6.3-8.2)
[2020-07-21 11:29] LABS: INR 0.9 (<1.2); Prothrombin Time 9.8 sec (9.0-12.0)
[2020-07-21 11:32] LABS: Partial Thromboplastin Time 20.3 sec (22.0-30.0)
[2020-07-21] MEDS ORDERED: SODIUM CHLORIDE 0.9% 2,000 ML IV ONE (11:35)
[2020-07-21] MEDS ORDERED: MORPHINE SULFATE 4 MG/ML SYRINGE IVP STA (12:36)
[2020-07-21] MEDS ORDERED: ONDANSETRON 4 MG/2 ML VIAL IVP STA (13:15)
[2020-07-21 13:36] LABS: Appearance,Urine Clear (Clear); Bilirubin,Urine Negative (Negative); Blood,Urine Negative (Negative); Color,Urine Yellow; Glucose,Urine (UA) Negative (Negative); Ketones,Urine Negative (Negative); Leukocyte Esterase,Urine Negative (Negative); Nitrite,Urine Negative (Negative); Protein,Urine Negative (Negative); Specific Gravity,Urine 1.013 (1.001-1.035); Urobilinogen,Urine <2.0 mg/dL (<2.0)
[2020-07-21] MEDS ORDERED: LEVOFLOXACIN 750MG-D5W PMX 750 MG in DEXTROSE/WATER 1 150ML.BAG IVPB STA (13:41)
[2020-07-21] MEDS ORDERED: SODIUM CHLORIDE 0.9% 500 ML 500 ML IV STA (13:43)
[2020-07-21] MEDS ORDERED: PNEUMONIA PROTOCOL UTILIZED 1 EACH MISC PO PRN (13:53)
[2020-07-21] MEDS: SODIUM CHLORIDE 0.9% 1,000 ML IV SCH (15:54)
--- NOTE | 2020-07-21 17:11 | P.HPIM ---
History of Present Illness H&P Date: 07/21/20 Chief Complaint: Weakness This is history of physical 75-year-old white male with known history of migraine headache and history of opiate dependence which he is done well with over the last several years. He has a pain pump which, unfortunately, is improving to be nonfunctional and his and restarted on low-dose Rhome. The patient states for the last 2-3 days she's been struggling with weakness area evaluation emergency room did show relatively significant pneumonia and he is admitted for this and dehydration. Underlying history of COPD. Review of Systems Constitutional: Reports as per HPI Eyes: denies blurred vision, denies pain Ears, nose, mouth and throat: Denies headache, Denies sore throat Cardiovascular: Denies chest pain, Denies shortness of breath Respiratory: Reports as per HPI Gastrointestinal: Denies abdominal pain, Denies diarrhea, Denies nausea, Denies vomiting Musculoskeletal: Denies myalgias Past Medical History Past Medical History: Cancer, COPD, GERD/Reflux, GI Bleed Additional Past Medical History / Comment(s): Other hx: COPD, history of right hemidiaphragmatic paralysis post plication, Bladder cancer with BCG and tumor removal, R testicular cancer with orchiectomy/radiation, chronic back and cervical pain, frequent debilitating migraines, bilateral sciatica, upper GI bleeds, hiatal hernia, gastritis, Diego's palsy, 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 Last Myocardial Infarction Date:: 05/25/14 History of Any Multi-Drug Resistant Organisms: None Reported Past Surgical History: Adenoidectomy, Appendectomy, Back Surgery, Cho lecystectomy, Heart Catheterization, Hernia Repair, Orthopedic Surgery, Tonsillectomy Additional Past Surgical History / Comment(s): 08/03/15 EGD colonoscopy,l cardiac cath, several back sx including laminectomy, spinous process removed T11 and T12/cage and arturo, bilateral arthroscopic knee surgeries, left thumb surgeries with rt one having titanium joint, L rotator cuff repair, several nasal polypectomies, RFA cervical/back, R/L inguinal hernia repairs, rt orchiectomy; d iaphragmatic hernia repair 03/2019 section of sigmoid colon removed. pt had a back simulator put in his left hip for bakc pain at [facility]. Past Anesthesia/Blood Transfusion Reactions: No Reported Reaction Past Psychological History: Depression Smoking Status: Former smoker Past Alcohol Use History: None Reported Past Drug Use History: None Reported - Past Family History Father Family Medical History: Cancer Additional Family Medical History / Comment(s): Father of stomach ca at the age of 65 yrs. Mother Family Medical History: No Reported History Additional Family Medical History / Comment(s): Mother of "old age". She was 83 yrs old Brother(s) Family Medical History: Diabetes Mellitus Additional Family Medical History / Comment(s): brain tumor Sister(s) Family Medical History: Diabetes Mellitus Additional Family Medical History / Comment(s): breast ca (sisters) Medications and Allergies Home Medications Medication Instructions Recorded Confirmed Type Ipratropium-Albuterol Nebulize 3 ml INHALATION RT-QID PRN 02/26/19 07/21/20 History [Duoneb 0.5 mg-3 mg/3 ml Soln] Fluticasone/Umeclidin/Vilanter 1 puff INHALATION RT-DAILY 07/21/20 07/21/20 History [Trelegy Ellipta 200-62.5-25] HYDROcodone/APAP 5-325MG [Rhome 1 tab PO Q6H PRN 07/21/20 07/21/20 History 5-325] Omeprazole 40 mg PO DAILY 07/21/20 07/21/20 History Allergies Allergy/AdvReac Type Severity Reaction Status Date / Time chocolate flavor Allergy TRIGGERS Verified 07/21/20 11:03 MIGRAINE Iodinated Contrast Media Allergy Anaphylaxis Verified 07/21/20 11:03 [Iodinated Contrast Media - IV Dye] iodine Allergy Anaphylaxis Verified 07/21/20 11:03 peanut Allergy TRIGGERS Verified 07/21/20 11:03 MIGRAINES Penicillins Allergy Anaphylaxis Verified 07/21/20 11:03 Sulfa (Sulfonamide Allergy Anaphylaxis Verified 07/21/20 11:03 Antibiotics) tramadol Allergy Swelling Verified 07/21/20 11:03 fentanyl AdvReac Severe SEVERE Verified 07/21/20 11:03 MIGRAINES adhesive AdvReac tears skin Verified 07/21/20 11:03 banana AdvReac HEADACHE Verified 07/21/20 11:03 gabapentin AdvReac Confusion Verified 07/21/20 11:03 tree nut [Nut] AdvReac HEADACHE Verified 07/21/20 11:03 yellow dye AdvReac HEADACHE Verified 07/21/20 11:03 OPIODS AdvReac Severe MIGRAINES Uncoded 02/15/20 12:21 Physical Exam Vitals: Vital Signs Temp Pulse Resp BP Pulse Ox 07/21/20 16:00 16 87/49 94 L 07/21/20 15:56 80 16 98/60 96 07/21/20 15:44 16 94 L 07/21/20 14:40 76 16 89/57 94 L 07/21/20 14:00 98.3 F 78 16 96/55 94 L 07/21/20 12:32 90 16 117/63 96 07/21/20 11:29 89 22 86/55 93 L 07/21/20 10:45 89 22 85/56 93 L 07/21/20 10:22 91 18 81/57 07/21/20 09:09 99.0 F 111 H 22 103/64 88 L Intake and Output 07/21/20 07/21/20 07/21/20 06:59 14:59 22:59 Other: Weight 70.307 kg - Constitutional General appearance: thin - EENT Eyes: no abnormal pupil - Neck Neck: no lymphadenopathy - Respiratory Respiratory: bilateral: diminished - Cardiovascular Rhythm: regular Heart sounds: normal: S1, S2 Abnormal Heart Sounds: no S3 Gallop - Gastrointestinal General gastrointestinal: soft, no tenderness - Integumentary Integumentary: normal, no rash Results CBC & Chem 7: 07/21/20 10:50 07/21/20 10:50 Labs: Abnormal Lab Results - Last 24 Hours (Table) 07/21/20 07/21/20 07/21/20 Range/Units 10:50 10:50 10:50 MCV 102.9 H (80.0-100.0) fL Lymphocytes # 0.6 L (1.0-4.8) k/uL APTT 20.3 L (22.0-30.0) sec C-Reactive Protein 1.5 H (<1.0) mg/dL Assessment and Plan (1) Pneumonia Current Visit: Yes Status: Acute Code(s): J18.9 - PNEUMONIA, UNSPECIFIED ORGANISM SNOMED Code(s): 373363447 (2) COPD (chronic obstructive pulmonary disease) Current Visit: No Status: Acute Code(s): J44.9 - CHRONIC OBSTRUCTIVE PULMONARY DISEASE, UNSPECIFIED SNOMED Code(s): 11309676 (3) Dehydration Current Visit: No Status: Acute Code(s): E86.0 - DEHYDRATION SNOMED Code(s): 29595399 (4) Dyspnea Current Visit: No Status: Acute Code(s): R06.00 - DYSPNEA, UNSPECIFIED SNOMED Code(s): 526239210 (5) Generalized weakness Current Visit: No Status: Acute Code(s): R53.1 - WEAKNESS SNOMED Code(s): 76381901 Plan: Empiric antibiotic treatment. COPD type protocol. We'll go ahead and place on Solu-Medrol. Reconcile home medications. Nausea treatment as needed. Check CBC and CMP in a.m. Await pulmonology input also.
[2020-07-21] MEDS: HYDROcodone/APAP 5-325MG 1 EACH TAB PO PRN (18:13)
[2020-07-21 18:51] LABS: Ferritin 68.1 ng/mL (22.0-322.0)
[2020-07-21] MEDS: SYMBICORT 80-4.5 MCG INHALER INHALATION SCH (20:20)
[2020-07-21] MEDS: ONDANSETRON 4 MG/2 ML VIAL IVP PRN (21:22)
[2020-07-21] MEDS: HYDROmorphone 0.5 MG/0.5 ML SYRINGE IVP PRN (21:27)
[2020-07-21 23:31] LABS: Glucose,Whole Blood 90 mg/dL (75-99)
[2020-07-22] MEDS: HYDROcodone/APAP 5-325MG 1 EACH TAB PO PRN ×3 (00:09→16:39)
[2020-07-22] MEDS: SODIUM CHLORIDE 0.9% 1,000 ML IV SCH ×3 (01:54→16:40)
[2020-07-22] MEDS: HYDROmorphone 0.5 MG/0.5 ML SYRINGE IVP PRN ×4 (04:01→21:11)
[2020-07-22] MEDS: ONDANSETRON 4 MG/2 ML VIAL IVP PRN ×4 (04:02→21:11)
[2020-07-22] MEDS: PANTOPRAZOLE 40 MG TABLET PO SCH (06:19)
--- NOTE | 2020-07-22 07:32 | XR ---
EXAMINATION TYPE: XR chest 2V DATE OF EXAM: 07/22/2020 COMPARISON: Chest x-ray 07/21/2020 HISTORY: Pneumonia TECHNIQUE: Frontal and lateral views of the chest are obtained. FINDINGS: There is less confluence to the abnormal density seen in the right lung on prior exam. No other significant interval change. IMPRESSION: Improvement in aeration. Additional follow-up recommended.
--- NOTE | 2020-07-22 08:07 | P.PN ---
Subjective Principal diagnosis: Weakness with severe headache and morning This impression a 75-year-old white male essentially admitted for weakness and element of pneumonia. The patient states poor sleep and looks quite tired today. No voiding difficulties. Nausea, vomiting or diarrhea is noted. Pain is relatively controlled. He has an underlying history of degenerative disc disease with nonfunctioning pain pump which is going to be repaired in the next month. Objective - Vital Signs Vital signs: Vital Signs Temp 97.6 F 07/21/20 23:20 Pulse 80 07/22/20 04:00 Resp 18 07/22/20 04:00 BP 163/69 07/22/20 04:00 Pulse Ox 95 07/22/20 04:00 Intake & Output 07/21/20 07/22/20 07/22/20 18:59 06:59 18:59 Output Total 250 Balance -250 Weight 70.307 kg 69.4 kg Output: Urine 250 Other: # Voids 0 - Constitutional General appearance: Present: thin - EENT Eyes: Absent: abnormal pupil - Neck Neck: Absent: lymphadenopathy - Respiratory Respiratory: bilateral: CTA - Cardiovascular Rhythm: regular Heart sounds: normal: S1, S2 Abnormal Heart Sounds: Absent: S3 Gallop - Gastrointestinal General gastrointestinal: Present: soft. Absent: tenderness - Neurologic Neurologic: Present: CNII-XII intact - Labs CBC & Chem 7: 07/21/20 10:50 07/21/20 10:50 Labs: Abnormal Lab Results - Last 24 Hours (Table) 07/21/20 07/21/20 07/21/20 Range/Units 10:50 10:50 10:50 MCV 102.9 H (80.0-100.0) fL Lymphocytes # 0.6 L (1.0-4.8) k/uL APTT 20.3 L (22.0-30.0) sec C-Reactive Protein 1.5 H (<1.0) mg/dL Procalcitonin (0.02-0.09) ng/mL 07/21/20 Range/Units 10:50 MCV (80.0-100.0) fL Lymphocytes # (1.0-4.8) k/uL APTT (22.0-30.0) sec C-Reactive Protein (<1.0) mg/dL Procalcitonin 6.41 H (0.02-0.09) ng/mL Assessment and Plan (1) Pneumonia Current Visit: Yes Status: Acute Code(s): J18.9 - PNEUMONIA, UNSPECIFIED ORGANISM SNOMED Code(s): 739666657 (2) COPD (chronic obstructive pulmonary disease) Current Visit: No Status: Acute Code(s): J44.9 - CHRONIC OBSTRUCTIVE PULMONARY DISEASE, UNSPECIFIED SNOMED Code(s): 30776290 (3) Dehydration Current Visit: No Status: Acute Code(s): E86.0 - DEHYDRATION SNOMED Code(s): 89973093 (4) Dyspnea Current Visit: No Status: Acute Code(s): R06.00 - DYSPNEA, UNSPECIFIED SNOMED Code(s): 540796063 (5) Generalized weakness Current Visit: No Status: Acute Code(s): R53.1 - WEAKNESS SNOMED Code(s): 90271507 Plan: Empiric antibiotic treatment. Appreciate pulmonology input. Check CBC and CMP in a.m. Appropriate pain control at this time.
[2020-07-22 08:20] LABS: HCT 44.1 % (39.0-53.0); MCH 32.9 pg (25.0-35.0); MCHC 31.6 g/dL (31.0-37.0); MCV 104.2 fL (80.0-100.0); Macrocytosis Moderate; Mean Platelet Volume 7.6; Platelet Count 166 k/uL (150-450); RBC 4.23 m/uL (4.30-5.90); RDW 14.6 % (11.5-15.5); WBC 11.4 k/uL (3.8-10.6)
[2020-07-22 08:21] LABS: HGB 13.9 gm/dL (13.0-17.5)
[2020-07-22 08:28] LABS: ALT 19 U/L (4-49); AST 23 U/L (17-59); African American GFR (CKD) >90 (>60 ml/min/1.73 sqM); Alkaline Phosphatase 52 U/L (38-126); Anion Gap 4 mmol/L; Blood Urea Nitrogen 17 mg/dL (9-20); Calcium 8.2 mg/dL (8.4-10.2); Carbon Dioxide 27 mmol/L (22-30); Chloride 108 mmol/L (98-107); Glucose 95 mg/dL (74-99); Non-African American GFR(CKD) >90 (>60 ml/min/1.73 sqM); Potassium 4.3 mmol/L (3.5-5.1); Sodium 139 mmol/L (137-145); Total Bilirubin 0.8 mg/dL (0.2-1.3); Total Protein 5.3 g/dL (6.3-8.2)
[2020-07-22] MEDS: IPRATROPIUM 0.5 MG/2.5 ML NEBU INHALATION SCH ×4 (08:28→20:44)
[2020-07-22] MEDS: SYMBICORT 80-4.5 MCG INHALER INHALATION SCH ×2 (08:29→20:44)
--- NOTE | 2020-07-22 13:19 | P.CNPUL ---
<Ruchi Couch M - Last Filed: 07/22/20 13:19> History of Present Illness Consult date: 07/22/20 Requesting physician: Lul Garcia Reason for consult: dyspnea Chief complaint: Gen. weakness, fatigue History of present illness: 75-year-old white male patient with past medical history of COPD, previous history of right hemidiaphragmatic paralysis post plication, former smoker, history of bladder cancer with BCG and tumor resection, right testicular cancer with orchiectomy/radiation, chronic back pain, migraine headaches, previous history of GI bleeding, osteoarthritis, who presented to the emergency department on 07/21/2020 for evaluation of general weakness and fatigue. Patient reports nausea and vomiting but no abdominal pain. Patient had diffuse body aches, shortness of breath, which is now improved, reports a headache similar to his chronic migraines, no neck pain. He reports a fall the night before last and she was too weak to get up on his own. 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 His chest x-ray shows airspace disease in the right upper lobe, no evident pneumothorax or pleural effusion, and minimal patchy basilar density on the left. Patient tested negative for COVID-19. Is afebrile, his lab work on admission showed a normal white count of 8.7, hemoglobin of 16.9, lites within renal profile were within normal limits, LFTs were within normal limits, but patient did have a elevated pro calcitonin of 6.41 indicating presence of bacterial infection, possibly pneumonia. Of note patient did have pneumonia in November 2019, for which she was hospitalized, and his most recent follow-up chest x-ray showed clearing of the right lung pneumonia. he has been started on antibiotics in the form of Levaquin, his follow-up blood work shows a white blood cell count of 11.4, hemoglobin 13. electrolytes and renal profile were unremarkable. He had the mild elevation of temperature this morning with a temp of 99.1F, he does have some chest tightness and dry cough. he reports being fully vaccinated for COVID-19 Review of Systems All systems: negative Constitutional: Reports fatigue, Reports weakness, Denies chills, Denies fever Eyes: denies blurred vision, denies pain Ears, nose, mouth and throat: Denies headache, Denies sore throat Cardiovascular: Denies chest pain, Denies shortness of breath Respiratory: Reports cough with sputum, Reports dyspnea, Denies cough Gastrointestinal: Denies abdominal pain, Denies diarrhea, Denies nausea, Denies vomiting Musculoskeletal: Denies myalgias Integumentary: Denies pruritus, Denies rash Neurological: Denies numbness, Denies weakness Psychiatric: Denies anxiety, Denies depression Endocrine: Denies fatigue, Denies weight change Past Medical History Past Medical History: Cancer, COPD, GERD/Reflux, GI Bleed Additional Past Medical History / Comment(s): Other hx: COPD, history of right hemidiaphragmatic paralysis post plication, Bladder cancer with BCG and tumor removal, R testicular cancer with orchiectomy/radiation, chronic back and cervical pain, frequent debilitating migraines, bilateral sciatica, upper GI bleeds, hiatal hernia, gastritis, Diego's palsy, 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 Last Myocardial Infarction Date:: 05/25/14 History of Any Multi-Drug Resistant Organisms: None Reported Past Surgical History: Adenoidectomy, Appendectomy, Back Surgery, Cholecystectomy, Heart Catheterization, Hernia Repair, Orthopedic Surgery, Tonsillectomy Additional Past Surgical History / Comment(s): 08/03/15 EGD colonoscopy,l cardiac cath, several back sx including laminectomy, spinous process removed T11 and T12/cage and arturo, bilateral arthroscopic knee surgeries, left thumb surgeries with rt one having titanium joint, L rotator cuff repair, several nasal polypectomies, RFA cervical/back, R/L inguinal hernia repairs, rt orchiectomy; diaphragmatic hernia repair 03/2019 section of sigmoid colon removed. pt had a back simulator put in his left hip for back pain at [facility]. Past Anesthesia/Blood Transfusion Reactions: No Reported Reaction Past Psychological History: Depression Additional Psychological History / Comment(s): Patient resides with his spouse of 55 yrs. He has chronic pain and debilitating migraines. He has a cane and walker which he uses prn. He has falls. He drives some but spouse does most of the driving. Spouse works afternoons at [employer] in patient check in/previous MRI. Smoking Status: Former smoker Past Alcohol Use History: None Reported Additional Past Alcohol Use History / Comment(s): Pt started smoking in 1959 and quit cigarettes in 2003, smoked 1 1/2ppd Past Drug Use History: None Reported - Past Family History Father Family Medical History: Cancer Additional Family Medical History / Comment(s): Father of stomach ca at the age of 65 yrs. Mother Family Medical History: No Reported History Additional Family Medical History / Comment(s): Mother of "old age". She was 83 yrs old Brother(s) Family Medical History: Diabetes Mellitus Additional Family Medical History / Comment(s): brain tumor Sister(s) Family Medical History: Diabetes Mellitus Additional Family Medical History / Comment(s): breast ca (sisters) Medications and Allergies Home Medications Medication Instructions Recorded Confirmed Type Ipratropium-Albuterol Nebulize 3 ml INHALATION RT-QID PRN 02/26/19 07/21/20 History [Duoneb 0.5 mg-3 mg/3 ml Soln] Fluticasone/Umeclidin/Vilanter 1 puff INHALATION RT-DAILY 07/21/20 07/21/20 History [Trelegy Ellipta 200-62.5-25] HYDROcodone/APAP 5-325MG [[place] 1 tab PO Q6H PRN 07/21/20 07/21/20 History 5-325] Omeprazole 40 mg PO DAILY 07/21/20 07/21/20 History Allergies Allergy/AdvReac Type Severity Reaction Status Date / Time chocolate flavor Allergy TRIGGERS Verified 07/21/20 11:03 MIGRAINE Iodinated Contrast Media Allergy Anaphylaxis Verified 07/21/20 11:03 [Iodinated Contrast Media - IV Dye] iodine Allergy Anaphylaxis Verified 07/21/20 11:03 peanut Allergy TRIGGERS Verified 07/21/20 11:03 MIGRAINES Penicillins Allergy Anaphylaxis Verified 07/21/20 11:03 Sulfa (Sulfonamide Allergy Anaphylaxis Verified 07/21/20 11:03 Antibiotics) tramadol Allergy Swelling Verified 07/21/20 11:03 fentanyl AdvReac Severe SEVERE Verified 07/21/20 11:03 MIGRAINES adhesive AdvReac tears skin Verified 07/21/20 11:03 banana AdvReac HEADACHE Verified 07/21/20 11:03 gabapentin AdvReac Confusion Verified 07/21/20 11:03 tree nut [Nut] AdvReac HEADACHE Verified 07/21/20 11:03 yellow dye AdvReac HEADACHE Verified 07/21/20 11:03 OPIODS AdvReac Severe MIGRAINES Uncoded 02/15/20 12:21 Physical Exam Vitals: Vital Signs Temp Pulse Pulse Resp BP BP Pulse Ox 07/22/20 12:05 79 07/22/20 11:56 78 07/22/20 11:20 90 18 99/67 95 07/22/20 08:44 84 07/22/20 08:29 80 07/22/20 08:00 99.1 F 80 18 120/69 91 L 07/22/20 04:00 80 18 163/69 95 07/21/20 23:20 97.6 F 74 20 130/64 93 L 07/21/20 21:00 16 114/51 95 07/21/20 18:00 98.5 F 87 16 98/51 97 07/21/20 16:00 16 87/49 94 L 07/21/20 15:56 80 16 98/60 96 07/21/20 15:44 16 94 L 07/21/20 14:40 76 16 89/57 94 L 07/21/20 14:00 98.3 F 78 16 96/55 94 L Intake and Output 07/21/20 07/22/20 07/22/20 22:59 06:59 14:59 Intake Total 240 Output Total 250 150 Balance -250 90 Intake: Oral 240 Output: Urine 250 150 Other: # Voids 0 Weight 69.4 kg GENERAL EXAM: Alert, 75-year-old white male, on 3 L of oxygen comfortable in no apparent distress. His have occasional dry cough, HEAD: Normocephalic/atraumatic. EYES: Normal reaction of pupils, equal size. Conjunctiva pink, sclera white. NOSE: Clear with pink turbinates. THROAT: No erythema or exudates. NECK: No masses, no JVD, no thyroid enlargement, no adenopathy. CHEST: No chest wall deformity. Symmetrical expansion. LUNGS: Equal air entry with crackles over right middle and right lower lobe CVS: Regular rate and rhythm, normal S1 and S2, no gallops, no murmurs, no rubs ABDOMEN: Soft, nontender. No hepatosplenomegaly, normal bowel sounds, no guarding or rigidity. EXTREMITIES: No clubbing, no edema, no cyanosis, 2+ pulses and upper and lower extremities. MUSCULOSKELETAL: Muscle strength and tone normal. SPINE: No scoliosis or deformity SKIN: She has scratches in macular rash over his bilateral lower extremities CENTRAL NERVOUS SYSTEM: Alert and oriented -3. No focal deficits, tone is normal in all 4 extremities. PSYCHIATRIC: Alert and oriented -3. Appropriate affect. Intact judgment and insight. Results - Laboratory Findings CBC and BMP: 07/22/20 07:56 07/22/20 07:56 PT/INR, D-dimer PT 9.8 sec (9.0-12.0) 07/21/20 10:50 INR 0.9 (<1.2) 07/21/20 10:50 Abnormal lab findings: Abnormal Labs 07/21/20 07/21/20 07/21/20 10:50 10:50 10:50 WBC RBC MCV 102.9 H Lymphocytes # 0.6 L APTT 20.3 L Chloride Creatinine Calcium C-Reactive Protein 1.5 H Total Protein Albumin Procalcitonin 07/21/20 07/22/20 07/22/20 10:50 07:56 07:56 WBC 11.4 H RBC 4.23 L MCV 104.2 H Lymphocytes # APTT Chloride 108 H Creatinine 0.64 L Calcium 8.2 L C-Reactive Protein Total Protein 5.3 L Albumin 3.0 L Procalcitonin 6.41 H - Diagnostic Findings Chest x-ray: report reviewed, image reviewed Assessment and Plan Plan: Assessment: #1. Recurrent right lung pneumonia, community acquired, rule out possibility of Legionella pneumonia, and tested negative for COVID-19 via PCR test, has been fully vaccinated for COVID-19 #2. Previous history of right lung pneumonia in November 2019, from which the patient has recovered #3. Advanced COPD with a baseline FEV1 of 43% of predicted #4. Hemidiaphragmatic paralysis, status post surgical plication #5. From a smoker #6. Chronic neck pain #7. History of bladder cancer that BCG and tumor removal #8. GERD/reflux #9. History of sigmoid stricture related to recurrent diverticulitis and is post a sigmoid colectomy #10. Former smoker #11. History of testicular cancer #12. History of Diego's palsy Plan: Continue with Levaquin, will add cefepime to antibiotic coverage Continue breathing treatments, Zofran for nausea and vomiting We'll send a Legionella urine antigen Blood cultures are pending, obtain sputum cultures if able GI and DVT prophylaxis Continue to follow I performed a history & physical examination of the patient and discussed their management with my nurse practitioner, Ruchi Couch. I reviewed the nurse practitioner's note and agree with the documented findings and plan of care. Lung sounds are diminished breah sounds. The findings and the impression was discussed with the patient. I attest to the documentation by the nurse practitioner. <Bharath Medrano - Last Filed: 07/22/20 13:22> Physical Exam Vitals: Vital Signs Temp Pulse Pulse Resp BP BP Pulse Ox 07/22/20 12:05 79 07/22/20 11:56 78 07/22/20 11:20 90 18 99/67 95 07/22/20 08:44 84 07/22/20 08:29 80 07/22/20 08:00 99.1 F 80 18 120/69 91 L 07/22/20 04:00 80 18 163/69 95 07/21/20 23:20 97.6 F 74 20 130/64 93 L 07/21/20 21:00 16 114/51 95 07/21/20 18:00 98.5 F 87 16 98/51 97 07/21/20 16:00 16 87/49 94 L 07/21/20 15:56 80 16 98/60 96 07/21/20 15:44 16 94 L 07/21/20 14:40 76 16 89/57 94 L 07/21/20 14:00 98.3 F 78 16 96/55 94 L Intake and Output 07/21/20 07/22/20 07/22/20 22:59 06:59 14:59 Intake Total 240 Output Total 250 150 Balance -250 90 Intake: Oral 240 Output: Urine 250 150 Other: # Voids 0 Weight 69.4 kg Results - Laboratory Findings CBC and BMP: 07/22/20 07:56 07/22/20 07:56 PT/INR, D-dimer PT 9.8 sec (9.0-12.0) 07/21/20 10:50 INR 0.9 (<1.2) 07/21/20 10:50 Abnormal lab findings: Abnormal Labs 07/21/20 07/21/20 07/21/20 10:50 10:50 10:50 WBC RBC MCV 102.9 H Lymphocytes # 0.6 L APTT 20.3 L Chloride Creatinine Calcium C-Reactive Protein 1.5 H Total Protein Albumin Procalcitonin 07/21/20 07/22/20 07/22/20 10:50 07:56 07:56 WBC 11.4 H RBC 4.23 L MCV 104.2 H Lymphocytes # APTT Chloride 108 H Creatinine 0.64 L Calcium 8.2 L C-Reactive Protein Total Protein 5.3 L Albumin 3.0 L Procalcitonin 6.41 H Assessment and Plan Plan: The joint evaluation that was done along with the nurse practitioner. The patient is having ongoing nausea and emesis. One large volume emesis was witnessed at the bedside. We'll proceed with a CAT scan of the chest and abdomen, noncontrast study. Also had amylase and lipase.
[2020-07-22 13:55] LABS: Amylase 92 U/L (30-110); Lipase <10 U/L (23-300)
[2020-07-22] MEDS: CEFEPIME 2 GM in SODIUM CHLORIDE 0.9% 100 ML IVPB SCH (14:11)
--- NOTE | 2020-07-22 16:33 | CT ---
EXAMINATION TYPE: CT ChestAbdPelvis wo con DATE OF EXAM: 07/22/2020 COMPARISON: 09/09/2019 HISTORY: Vomiting and generalized pain CT DLP: 537.1mGycm Unenhanced CT of the Chest, Abdomen and Pelvis Unenhanced CT of the chest ,abdomen and pelvis is performed. The lack of intravenous contrast limits evaluation of the solid and hollow viscera. Oral contrast: None CT Chest: LUNGS: Airspace consolidation throughout the right lung with right lower lobe pleural effusion and co mpressive atelectasis. Hyperinflation compatible with COPD. Mild upper lobe emphysematous change. MEDIASTINUM: Thoracic aorta is of normal caliber. The heart is not enlarged. No evidence for media stinal mass or adenopathy. HILAR STRUCTURES: No evidence for mass. No hilar adenopathy is appreciated. OTHER: No significant abnormality. CONTRAST CT ABDOMEN AND PELVIS: LIVER/GB: No calcified gallstones. Peripheral hepatic calcifications are of uncertain etiology. No space occupying hepatic lesion. Biliary tree is of normal caliber. PANCREAS: No inflammation. No distinct mass. SPLEEN: No splenic enlargement. No lesion seen. ADRENALS: No nodule. No thickening. KIDNEYS/BLADDER: No hydronephrosis. No nephrolithiasis. No distinct renal mass. BOWEL: Normal appendix. Postoperative changes of the sigmoid colon. Moderate fecal stasis. No evidenc e for obstruction, free air or abscess. GENITAL ORGANS: No gross abnormality. LYMPH NODES: No greater than 1cm abdominal or pelvic lymph nodes are appreciated. AORTA: No significant abnormality. OSSEOUS STRUCTURES: No significant abnormality is seen. OTHER: No significant additional abnormality is seen. IMPRESSION: 1. No acute process to suggest obstructive change. Moderate fecal stasis. 2. Probable pneumonia.
[2020-07-22] MEDS: LEVOFLOXACIN 750MG-D5W PMX 750 MG in DEXTROSE/WATER 1 150ML.BAG IVPB SCH (16:39)
[2020-07-22] MEDS: ALBUTEROL NEBULIZED 2.5 MG/3 ML INHALATION PRN (20:44)
[2020-07-23] MEDS: SODIUM CHLORIDE 0.9% 1,000 ML IV SCH ×4 (01:04→20:46)
[2020-07-23] MEDS: CEFEPIME 2 GM in SODIUM CHLORIDE 0.9% 100 ML IVPB SCH ×2 (02:46→13:08)
[2020-07-23] MEDS: HYDROmorphone 0.5 MG/0.5 ML SYRINGE IVP PRN ×3 (03:08→23:13)
[2020-07-23] MEDS: ONDANSETRON 4 MG/2 ML VIAL IVP PRN (03:09)
[2020-07-23] MEDS: IPRATROPIUM 0.5 MG/2.5 ML NEBU INHALATION SCH ×4 (08:15→20:03)
[2020-07-23] MEDS: SYMBICORT 80-4.5 MCG INHALER INHALATION SCH ×2 (08:15→20:03)
[2020-07-23] MEDS: PANTOPRAZOLE 40 MG TABLET PO SCH (08:50)
--- NOTE | 2020-07-23 11:34 | P.PN ---
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 Patient reports nausea and vomiting but no abdominal pain. Patient had diffuse body aches, shortness of breath, which is now improved, reports a headache similar to his chronic migraines, no neck pain. He reports a fall the night before last and she was too weak to get up on his own. 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 His chest x-ray shows airspace disease in the right upper lobe, no evident pneumothorax or pleural effusion, and minimal patchy basilar density on the left. Patient tested negative for COVID-19. Is afebrile, his lab work on admission showed a normal white count of 8.7, hemoglobin of 16.9, lites within renal profile were within normal limits, LFTs were within normal limits, but patient did have a elevated pro calcitonin of 6.41 indicating presence of bacterial infection, possibly pneumonia. Of note patient did have pneumonia in November 2019, for which she was hospitalized, and his most recent follow-up chest x-ray showed clearing of the right lung pneumonia. he has been started on antibiotics in the form of Levaquin, his follow-up blood work shows a white blood cell count of 11.4, hemoglobin 13. electrolytes and renal profile were unremarkable. He had the mild elevation of temperature this morning with a temp of 99.1F, he does have some chest tightness and dry cough. he reports being fully vaccinated for COVID-19 07/23/2020, Mr. Fair is doing slightly better compared to yesterday. The patient had a CAT scan of the chest abdomen and pelvis yesterday and the findings were consistent with a right lower lobe pneumonia. No intra-abdominal pathology. No nausea or emesis this morning. His resting comfortably in bed. Legionella urine antigen has been negative and the patient remains on broad- spectrum antibiotics for now. Note that his pro calcitonin level was high indicating an underlying bacterial infection. Hemodynamically stable. Objective - Vital Signs Vital signs: Vital Signs Temp 98.2 F 07/23/20 07:25 Pulse 86 07/23/20 07:25 Resp 17 07/23/20 07:25 BP 125/72 07/23/20 07:25 Pulse Ox 93 L 07/23/20 07:25 Intake & Output 07/22/20 07/23/20 07/23/20 18:59 06:59 18:59 Intake Total 480 340 Output Total 450 900 Balance 30 -560 Intake: Oral 480 340 Output: Urine 450 900 Other: # Voids 1 2 - Exam GENERAL EXAM: Alert, 75-year-old white male, on 3 L of oxygen comfortable in no apparent distress. His have occasional dry cough, HEAD: Normocephalic/atraumatic. EYES: Normal reaction of pupils, equal size. Conjunctiva pink, sclera white. NOSE: Clear with pink turbinates. THROAT: No erythema or exudates. NECK: No masses, no JVD, no thyroid enlargement, no adenopathy. CHEST: No chest wall deformity. Symmetrical expansion. LUNGS: Equal air entry with crackles over right middle and right lower lobe CVS: Regular rate and rhythm, normal S1 and S2, no gallops, no murmurs, no rubs ABDOMEN: Soft, nontender. No hepatosplenomegaly, normal bowel sounds, no guarding or rigidity. EXTREMITIES: No clubbing, no edema, no cyanosis, 2+ pulses and upper and lower extremities. MUSCULOSKELETAL: Muscle strength and tone normal. SPINE: No scoliosis or deformity SKIN: She has scratches in macular rash over his bilateral lower extremities CENTRAL NERVOUS SYSTEM: Alert and oriented -3. No focal deficits, tone is normal in all 4 extremities. PSYCHIATRIC: Alert and oriented -3. Appropriate affect. Intact judgment and insight. - Labs CBC & Chem 7: 07/22/20 07:56 07/22/20 07:56 Labs: Abnormal Lab Results - Last 24 Hours (Table) 07/22/20 Range/Units 07:56 Lipase <10 L (23-300) U/L Microbiology - Last 24 Hours (Table) 07/22/20 12:30 Gram Stain - Preliminary Sputum Sputum Culture - Preliminary 07/21/20 10:50 Blood Culture - Preliminary Blood No Growth after 24 hours 07/21/20 10:50 Blood Culture - Preliminary Blood No Growth after 24 hours Assessment and Plan Plan: T #1. Recurrent right lung pneumonia, community acquired, rule out possibility of Legionella pneumonia, and tested negative for COVID-19 via PCR test, has been fully vaccinated for COVID-19, clinically stable and the patient remains on broad-spectrum antibiotics. CAT scan of the chest confirmed the presence of pneumonia. #2. Previous history of right lung pneumonia in November 2019, from which the patient has recovered #3. Advanced COPD with a baseline FEV1 of 43% of predicted #4. Hemidiaphragmatic paralysis, status post surgical plication #5. From a smoker #6. Chronic neck pain #7. History of bladder cancer that BCG and tumor removal #8. GERD/reflux #9. History of sigmoid stricture related to recurrent diverticulitis and is post a sigmoid colectomy #10. Former smoker #11. History of testicular cancer #12. History of Diego's palsy Plan: CAT scan of the chest abdomen and pelvis was consistent with a right lung pneumonia and the patient be kept on same antibiotic coverage. Continue with Levaquin/cefepime to antibiotic coverage Continue breathing treatments, Zofran for nausea and vomiting Negative Legionella urine antigen Blood cultures are pending, obtain sputum cultures if able GI and DVT prophylaxis We'll continue to follow. Continue the same antibiotic coverage for now.
[2020-07-23] MEDS: HYDROcodone/APAP 5-325MG 1 EACH TAB PO PRN (13:07)
[2020-07-23] MEDS: LEVOFLOXACIN 750MG-D5W PMX 750 MG in DEXTROSE/WATER 1 150ML.BAG IVPB SCH (15:43)
[2020-07-23] MEDS ORDERED: FUROSEMIDE 10 MG/ML 2 ML VIAL IV ONE (19:00)
[2020-07-23] MEDS: PANTOPRAZOLE 40 MG/10 ML VIAL IVP SCH (20:45)
--- NOTE | 2020-07-23 23:28 | PN ---
PROGRESS NOTE DATE OF SERVICE: 07/23/2020 I am covering for . This 75-year-old gentleman admitted with weakness, severe headache and features of pneumonia is being closely monitored at this time. The patient had a chest, abdomen and pelvis CT scan ordered by Dr. Medrano, which showed no evidence of acute abdominal process but moderate fecal stasis and aspirate consolidation pneumonia in the right lung was also noted. The COVID-19 was negative. The patient had elevated procalcitonin up to 6.41. The CRP is only 1.5. Past medical history reviewed. The patient also had significant episodes of pneumonia on the same side. REVIEW OF SYSTEMS: CARDIOVASCULAR system: No angina or palpitations RESPIRATORY: As mentioned earlier. GI: As mentioned earlier. no dysuria. NERVOUS SYSTEM: No numbness, weakness. MEDICATIONS: [place], Ventolin, Symbicort, Atrovent, Zofran, Levaquin. PHYSICAL EXAMINATION: Patient is alert, oriented x3. Pulse 76. Blood pressure 140/70. Respiration 18, temperature 98.2, pulse ox 98% on 3 L. HEENT: Conjunctivae normal. NECK: No JVD. CARDIOVASCULAR: S1, S2 muffled. RESPIRATORY: Breath sounds diminished in the bases. A few scattered rhonchi. ABDOMEN: Soft, nontender. LEGS are no edema. No swelling. NERVOUS SYSTEM: No focal deficits. LAB STUDIES: WBC 10.2, hemoglobin 13.2, sodium 130, potassium 4.3. ASSESSMENT: 1. Acute right lower lobe right lung pneumonia, possibly aspiration pneumonia. 2. Possible acute right pleural effusion secondary to pneumonia, parapneumonic. 3. History of previous right-sided pneumonia, recurrent attacks. 4. Advanced chronic obstructive pulmonary disease with 43% FEV. 5. Right hemidiaphragmatic paralysis, status post surgical plication. 6. Increased WBC. 7. Increased MCV. 8. History of gastroesophageal reflux disease. 9. History of gastrointestinal bleed. 10.History of bladder cancer status post BCG tumor removal. 11.History of testicular cancer. 12.History of migraine. 13.History of degenerative joint disease. 14.History of cholecystectomy. RECOMMENDATIONS AND DISCUSSION: This 75-year-old gentleman who presented with multiple complex medical issues, we will monitor the patient closely. Continue the current medications, management and symptomatic treatment. Continue the broad-spectrum IV antibiotics. Incentive spirometry. Bronchodilators. Closely follow with Dr. Medrano. Guarded prognosis because of multiple complex medical conditions. DVT prophylaxis. See orders for details. Cut down the IV fluids. MMODL / IJN: [id number] /
[2020-07-24] MEDS: CEFEPIME 2 GM in SODIUM CHLORIDE 0.9% 100 ML IVPB SCH ×2 (00:46→14:11)
[2020-07-24] MEDS: IPRATROPIUM 0.5 MG/2.5 ML NEBU INHALATION SCH ×5 (08:06→21:13)
[2020-07-24] MEDS: SYMBICORT 80-4.5 MCG INHALER INHALATION SCH ×2 (08:06→21:13)
[2020-07-24] MEDS: PANTOPRAZOLE 40 MG/10 ML VIAL IVP SCH ×2 (08:07→19:50)
[2020-07-24] MEDS: ONDANSETRON 4 MG/2 ML VIAL IVP PRN ×3 (08:07→20:59)
[2020-07-24] MEDS: HYDROmorphone 0.5 MG/0.5 ML SYRINGE IVP PRN ×3 (08:07→20:59)
--- NOTE | 2020-07-24 10:44 | P.PN ---
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 Patient reports nausea and vomiting but no abdominal pain. Patient had diffuse body aches, shortness of breath, which is now improved, reports a headache similar to his chronic migraines, no neck pain. He reports a fall the night before last and she was too weak to get up on his own. 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 His chest x-ray shows airspace disease in the right upper lobe, no evident pneumothorax or pleural effusion, and minimal patchy basilar density on the left. Patient tested negative for COVID-19. Is afebrile, his lab work on admission showed a normal white count of 8.7, hemoglobin of 16.9, lites within renal profile were within normal limits, LFTs were within normal limits, but patient did have a elevated pro calcitonin of 6.41 indicating presence of bacterial infection, possibly pneumonia. Of note patient did have pneumonia in November 2019, for which she was hospitalized, and his most recent follow-up chest x-ray showed clearing of the right lung pneumonia. he has been started on antibiotics in the form of Levaquin, his follow-up blood work shows a white blood cell count of 11.4, hemoglobin 13. electrolytes and renal profile were unremarkable. He had the mild elevation of temperature this morning with a temp of 99.1F, he does have some chest tightness and dry cough. he reports being fully vaccinated for COVID-19 07/23/2020, Mr. Fair is doing slightly better compared to yesterday. The patient had a CAT scan of the chest abdomen and pelvis yesterday and the findings were consistent with a right lower lobe pneumonia. No intra-abdominal pathology. No nausea or emesis this morning. His resting comfortably in bed. Legionella urine antigen has been negative and the patient remains on broad- spectrum antibiotics for now. Note that his pro calcitonin level was high indicating an underlying bacterial infection. Hemodynamically stable. 2020, the patient is still being treated for right lung pneumonia. He remains on broad-spectrum antibiotics. He is having some headache earlier this morning. Otherwise his gone down to 3 L of oxygen by nasal cannula and his overall feeling better. No nausea. No emesis. Tolerating diet. Remains on broad- spectrum antibiotics with a combination of cefepime and Levaquin. Labs from to day are still pending. Otherwise is hemodynamically stable. There is on 3 L nasal cannula and is afebrile. Objective - Vital Signs Vital signs: Vital Signs Temp 97.9 F 07/24/20 07:34 Pulse 83 07/24/20 07:34 Resp 18 07/24/20 07:34 BP 160/73 07/24/20 07:34 Pulse Ox 96 07/24/20 07:34 Intake & Output 07/23/20 07/24/20 07/24/20 18:59 06:59 18:59 Intake Total 480 Output Total 2100 Balance -1620 Intake: Oral 480 Output: Urine 2100 Other: # Voids 3 1 - Exam GENERAL EXAM: Alert, 75-year-old white male, on 3 L of oxygen comfortable in no apparent distress. His have occasional dry cough, HEAD: Normocephalic/atraumatic. EYES: Normal reaction of pupils, equal size. Conjunctiva pink, sclera white. NOSE: Clear with pink turbinates. THROAT: No erythema or exudates. NECK: No masses, no JVD, no thyroid enlargement, no adenopathy. CHEST: No chest wall deformity. Symmetrical expansion. LUNGS: Equal air entry with crackles over right middle and right lower lobe CVS: Regular rate and rhythm, normal S1 and S2, no gallops, no murmurs, no rubs ABDOMEN: Soft, nontender. No hepatosplenomegaly, normal bowel sounds, no guardi ng or rigidity. EXTREMITIES: No clubbing, no edema, no cyanosis, 2+ pulses and upper and lower extremities. MUSCULOSKELETAL: Muscle strength and tone normal. SPINE: No scoliosis or deformity SKIN: She has scratches in macular rash over his bilateral lower extremities CENTRAL NERVOUS SYSTEM: Alert and oriented -3. No focal deficits, tone is normal in all 4 extremities. PSYCHIATRIC: Alert and oriented -3. Appropriate affect. Intact judgment and insight. - Labs CBC & Chem 7: 07/22/20 07:56 07/22/20 07:56 Labs: Microbiology - Last 24 Hours (Table) 07/22/20 12:30 Gram Stain - Final Sputum Sputum Culture - Final 07/21/20 10:50 Blood Culture - Preliminary Blood No Growth after 48 hours 07/21/20 10:50 Blood Culture - Preliminary Blood No Growth after 48 hours Assessment and Plan Plan: T #1. Recurrent right lung pneumonia, community acquired, rule out possibility of Legionella pneumonia, and tested negative for COVID-19 via PCR test, has been fully vaccinated for COVID-19, clinically stable and the patient remains on broad-spectrum antibiotics. CAT scan of the chest confirmed the presence of pneumonia. #2. Previous history of right lung pneumonia in November 2019, from which the patient has recovered #3. Advanced COPD with a baseline FEV1 of 43% of predicted #4. Hemidiaphragmatic paralysis, status post surgical plication #5. From a smoker #6. Chronic neck pain #7. History of bladder cancer that BCG and tumor removal #8. GERD/reflux #9. History of sigmoid stricture related to recurrent diverticulitis and is post a sigmoid colectomy #10. Former smoker #11. History of testicular cancer #12. History of Diego's palsy Plan: Clinically improving Broad-spectrum antibiotics. Cultures of been all negative thus far. Repeat chest x-ray in the morning We'll start simplifying antibiotics if clinically improving and x-ray showing improvement in the right lung consolidation. GI and DVT prophylaxis We'll continue to follow. Continue the same antibiotic coverage for now.
[2020-07-24 12:39] LABS: Basophils # (A) 0.03 X 10*3/uL (0.00-0.10); Basophils % (A) 0.4 %; Eosinophils # (A) 0.09 X 10*3/uL (0.04-0.35); Eosinophils % (A) 1.1 %; HCT 37.6 % (39.6-50.0); HGB 12.4 g/dL (13.0-17.0); Lymphocytes # (A) 0.56 X 10*3/uL (0.90-5.00); Lymphocytes % (A) 6.8 %; MCH 33.7 pg (27.0-32.0); MCV 102.2 fL (80.0-97.0); Mean Platelet Volume 11.5 fL (9.5-12.2); Monocytes # (A) 0.64 X 10*3/uL (0.20-1.00); Monocytes % (A) 7.8 %; Neutrophils # (A) 6.87 X 10*3/uL (1.80-7.70); Neutrophils % (A) 83.4 %; Platelet Count 162 X 10*3/uL (140-440); RBC 3.68 X 10*6/uL (4.40-5.60); RDW 13.9 % (11.5-14.5); WBC 8.23 X 10*3/uL (4.50-10.00)
[2020-07-24 13:27] LABS: African American GFR (CKD) 122.9 (60.0-200.0); Anion Gap 2.4 mmol/L (4.00-12.00); Calcium 8.6 mg/dL (8.7-10.3); Carbon Dioxide 37.6 mmol/L (21.6-31.8); Potassium 3.9 mmol/L (3.5-5.5)
[2020-07-24] MEDS: LEVOFLOXACIN 750MG-D5W PMX 750 MG in DEXTROSE/WATER 1 150ML.BAG IVPB SCH (14:11)
[2020-07-24] MEDS: SODIUM CHLORIDE 0.9% 1,000 ML IV SCH (19:50)
--- NOTE | 2020-07-24 20:41 | PN ---
PROGRESS NOTE DATE OF SERVICE: 07/24/2020 I am covering for . This 75-year-old gentleman who was admitted with significant pneumonia on the right side. History of recurrent episodes of pneumonia on the right side. The patient had chest, abdomen and pelvis CT scan which showed some probable pneumonia and pleural effusion. Patient closely monitored. Patient on broad spectrum IV antibiotics. PAST MEDICAL HISTORY: Reviewed. REVIEW OF SYSTEMS: CARDIOVASCULAR SYSTEM: No angina. RESPIRATORY: As mentioned earlier. GI as mentioned earlier. : No dysuria. NERVOUS SYSTEM: No numbness, no weakness. CURRENT MEDICATIONS: Are reviewed and include: [place], Ventolin, Symbicort, Cefepime, Dilaudid, Atrovent. PHYSICAL EXAMINATION: Patient is alert, oriented times three. Pulse is 91. Blood pressure 159/83, respiration 18, temperature 97.5, pulse ox 92 percent on 3 L. HEENT: Conjunctivae normal. NECK: No JVD. CARDIOVASCULAR: S1, S2 muffled. RESPIRATORY SYSTEM: Breath sounds diminished at the bases. A few scattered rhonchi and crackles. ABDOMEN: Soft, nontender. LEGS are no edema. No swelling. NERVOUS SYSTEM: No focal deficits. LABS: WBC 3.2, hemoglobin 12.4, sodium 140, potassium 3.9. ASSESSMENT: 1. Acute right lower lobe pneumonia possibly aspiration pneumonia. 2. Possible acute right pleural effusion possibly parapneumonic effusion. 3. History of previous right sided pneumonia, recurrent attacks. 4. Advanced chronic obstructive pulmonary disease with FEV1 of 43%. 5. Right hemidiaphragmatic paralysis, status post surgical plication. 6. Increased WBC. 7. Increased MCV. 8. Gastroesophageal reflux disease. 9. History of gastrointestinal bleed. 10.History of bladder cancer status post BCG tumor removal. 11.History of testicular cancer. 12.History of migraine. 13.History of degenerative joint disease. 14.History of cholecystectomy. RECOMMENDATIONS AND DISCUSSION: Recommend to continue current medications, management and symptomatic treatment. Otherwise, at this time, bronchodilators. Incentive spirometry. Broad-spectrum IV antibiotics. Cultures are negative so far. Blood and sputum cultures. Closely follow with Dr. Medrano. Guarded prognosis. Further recommendations to follow. MMODL / IJN: [id number] /
[2020-07-25] MEDS: CEFEPIME 2 GM in SODIUM CHLORIDE 0.9% 100 ML IVPB SCH ×2 (02:41→13:22)
[2020-07-25] MEDS: SYMBICORT 80-4.5 MCG INHALER INHALATION SCH ×2 (07:24→21:27)
[2020-07-25] MEDS: IPRATROPIUM 0.5 MG/2.5 ML NEBU INHALATION SCH ×4 (07:24→21:26)
--- NOTE | 2020-07-25 08:08 | XR ---
EXAMINATION TYPE: XR chest 2V DATE OF EXAM: 07/25/2020 COMPARISON: Chest x-ray 07/22/2020 HISTORY: Pneumonia, follow-up TECHNIQUE: Frontal and lateral views of the chest are obtained. FINDINGS: Findings are similar to prior exam. There is likely underlying COPD. Patchy density within the lungs shows a similar appearance. There is no evident pneumothorax. Cardiac mediastinal silhouet te is likely stable. IMPRESSION: Correlate for right lower lobe pneumonia with small associated effusion. There is underl javier emphysema.
[2020-07-25] MEDS: PANTOPRAZOLE 40 MG/10 ML VIAL IVP SCH ×2 (08:14→20:33)
--- NOTE | 2020-07-25 10:03 | P.PN ---
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 Patient reports nausea and vomiting but no abdominal pain. Patient had diffuse body aches, shortness of breath, which is now improved, reports a headache similar to his chronic migraines, no neck pain. He reports a fall the night before last and she was too weak to get up on his own. 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 His chest x-ray shows airspace disease in the right upper lobe, no evident pneumothorax or pleural effusion, and minimal patchy basilar density on the left. Patient tested negative for COVID-19. Is afebrile, his lab work on admission showed a normal white count of 8.7, hemoglobin of 16.9, lites within renal profile were within normal limits, LFTs were within normal limits, but patient did have a elevated pro calcitonin of 6.41 indicating presence of bacterial infection, possibly pneumonia. Of note patient did have pneumonia in November 2019, for which she was hospitalized, and his most recent follow-up chest x-ray showed clearing of the right lung pneumonia. he has been started on antibiotics in the form of Levaquin, his follow-up blood work shows a white blood cell count of 11.4, hemoglobin 13. electrolytes and renal profile were unremarkable. He had the mild elevation of temperature this morning with a temp of 99.1F, he does have some chest tightness and dry cough. he reports being fully vaccinated for COVID-19 07/23/2020, Mr. Fair is doing slightly better compared to yesterday. The patient had a CAT scan of the chest abdomen and pelvis yesterday and the findings were consistent with a right lower lobe pneumonia. No intra-abdominal pathology. No nausea or emesis this morning. His resting comfortably in bed. Legionella urine antigen has been negative and the patient remains on broad- spectrum antibiotics for now. Note that his pro calcitonin level was high indicating an underlying bacterial infection. Hemodynamically stable. 07/24/2020, the patient is still being treated for right lung pneumonia. He remains on broad-spectrum antibiotics. He is having some headache earlier this morning. Otherwise his gone down to 3 L of oxygen by nasal cannula and his overall feeling better. No nausea. No emesis. Tolerating diet. Remains on broad-spectrum antibiotics with a combination of cefepime and Levaquin. Labs fr om today are still pending. Otherwise is hemodynamically stable. There is on 3 L nasal cannula and is afebrile. 07/25/2020, the patient is feeling progressively more improved. No GI side effects or complaints or nausea or vomiting or emesis. The patient is requesting full regular diet. He remains on Levaquin and cefepime. A repeat chest x-ray was done and shows interval improvement in the right lung consolidation. This has not completely recovered. I do see some radiographic improvement on today's chest x-ray. He remains on the same antibiotic coverage. Oxygen is at 3 L per minute nasal cannula. No respiratory difficulties at this point in time. He remains afebrile. His blood work shows stable electrolytes, stable renal function, and his white cell count is at 8.2. Objective - Vital Signs Vital signs: Vital Signs Temp 99 F 07/25/20 07:31 Pulse 85 07/25/20 07:31 Resp 17 07/25/20 07:31 BP 153/75 07/25/20 07:31 Pulse Ox 92 L 07/25/20 07:31 Intake & Output 07/24/20 07/25/20 07/25/20 18:59 06:59 18:59 Intake Total 780 Output Total 600 Balance 780 -600 Intake: Intake, IV Titration 300 Amount Cefepime 2 gm In Sodium 100 Chloride 0.9% 100 ml @ 25 mls/hr IVPB Q12H [facility] Rx# :[id number] Sodium Chloride 0.9% 1, 200 000 ml @ 20 mls/hr IV . Q24H [facility]EE Rx#:[id number] Oral 480 Output: Urine 600 Other: Voiding Method Urinal # Voids 1 1 - Exam GENERAL EXAM: Alert, 75-year-old white male, on 3 L of oxygen comfortable in no apparent distress. His have occasional dry cough, HEAD: Normocephalic/atraumatic. EYES: Normal reaction of pupils, equal size. Conjunctiva pink, sclera white. NOSE: Clear with pink turbinates. THROAT: No erythema or exudates. NECK: No masses, no JVD, no thyroid enlargement, no adenopathy. CHEST: No chest wall deformity. Symmetrical expansion. LUNGS: Equal air entry with crackles over right middle and right lower lobe CVS: Regular rate and rhythm, normal S1 and S2, no gallops, no murmurs, no rubs ABDOMEN: Soft, nontender. No hepatosplenomegaly, normal bowel sounds, no guarding or rigidity. EXTREMITIES: No clubbing, no edema, no cyanosis, 2+ pulses and upper and lower extremities. MUSCULOSKELETAL: Muscle strength and tone normal. SPINE: No scoliosis or deformity SKIN: She has scratches in macular rash over his bilateral lower extremities CENTRAL NERVOUS SYSTEM: Alert and oriented -3. No focal deficits, tone is normal in all 4 extremities. PSYCHIATRIC: Alert and oriented -3. Appropriate affect. Intact judgment and insight. - Labs CBC & Chem 7: 07/24/20 07:23 07/24/20 07:23 Labs: Abnormal Lab Results - Last 24 Hours (Table) 07/24/20 07/24/20 Range/Units 07:23 07:23 RBC 3.68 L (4.40-5.60) X 10*6/uL Hgb 12.4 L (13.0-17.0) g/dL Hct 37.6 L (39.6-50.0) % MCV 102.2 H (80.0-97.0) fL MCH 33.7 H (27.0-32.0) pg Lymphocytes # 0.56 L (0.90-5.00) X 10*3/uL Carbon Dioxide 37.6 H (21.6-31.8) mmol/L Anion Gap 2.40 L (4.00-12.00) mmol/L Creatinine 0.5 L (0.6-1.5) mg/dL Calcium 8.6 L (8.7-10.3) mg/dL Microbiology - Last 24 Hours (Table) 07/21/20 10:50 Blood Culture - Preliminary Blood No Growth after 72 hours 07/21/20 10:50 Blood Culture - Preliminary Blood No Growth after 72 hours 07/22/20 12:30 Gram Stain - Final Sputum Sputum Culture - Final Assessment and Plan Plan: T #1. Recurrent right lung pneumonia, community acquired, rule out possibility of Legionella pneumonia, and tested negative for COVID-19 via PCR test, has been fully vaccinated for COVID-19, clinically stable and the patient remains on broad-spectrum antibiotics. CAT scan of the chest confirmed the presence of pneumonia. Clinically improving. Follow-up chest x-rays also improving. #2. Previous history of right lung pneumonia in November 2019, from which the patient has recovered #3. Advanced COPD with a baseline FEV1 of 43% of predicted #4. Hemidiaphragmatic paralysis, status post surgical plication #5. From a smoker #6. Chronic neck pain #7. History of bladder cancer that BCG and tumor removal #8. GERD/reflux #9. History of sigmoid stricture related to recurrent diverticulitis and is post a sigmoid colectomy #10. Former smoker #11. 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 Anticipate more improvement. Continue antibiotics for another 24 hours. Cultures of been negative., Broad-spectrum antibiotics. Cultures of been all negative thus far. Repeat chest x-ray in the morning We'll start simplifying antibiotics if clinically improving and x-ray showing improvement in the right lung consolidation. GI and DVT prophylaxis We'll continue to follow. possible home within the next 24 hours if things remain stable. Advance diet to regular.
[2020-07-25] MEDS: ONDANSETRON 4 MG/2 ML VIAL IVP PRN (10:39)
[2020-07-25] MEDS: HYDROmorphone 0.5 MG/0.5 ML SYRINGE IVP PRN ×2 (10:39→16:02)
[2020-07-25] MEDS: LEVOFLOXACIN 750MG-D5W PMX 750 MG in DEXTROSE/WATER 1 150ML.BAG IVPB SCH (13:23)
[2020-07-25] MEDS: HYDROcodone/APAP 5-325MG 1 EACH TAB PO PRN ×2 (13:36→20:33)
[2020-07-25] MEDS: SODIUM CHLORIDE 0.9% 1,000 ML IV SCH (21:33)
--- NOTE | 2020-07-25 21:36 | PN ---
PROGRESS NOTE DATE OF SERVICE: 07/25/2020 I am covering for . This 75-year-old gentleman who was admitted with right lower lobe pneumonia and possible aspiration pneumonia is being closely monitored at this time. The patient is on IV antibiotics. Dr. Medrano is following the patient closely. The most recent chest x-ray which I reviewed personally showed some persistent effusion on the right side. The patient has history of recurrent right-sided pneumonia. No chest pain. No palpitations. No fever. PHYSICAL EXAMINATION: Alert and oriented x3. Pulse blood pressure 130/70, respiration 18, temperature 98.2, pulse ox 98% on 3 L. HEENT: Conjunctivae normal. Oral mucosa moist. NECK: No jugular venous distention. No lymph node enlargement. CARDIOVASCULAR: S1, S2, muffled. No S3, no S4, RESPIRATORY: Diminished breath sounds at the bases. A few scattered rhonchi. ABDOMEN: Soft, nontender. LEGS: No edema, no swelling. NERVOUS SYSTEM: No focal deficits. LABS: WBC 8, hemoglobin 12.4. ASSESSMENT: 1. Acute right lower lobe pneumonia, possibly aspiration pneumonia. 2. Possible acute right pleural effusion, possibly parapneumonic effusion. 3. History of previous right-sided pneumonia, recurrent episodes. 4. Advanced COPD with FEV1 of 43%. 5. Right hemidiaphragmatic paralysis, status post surgical plication. 6. Increased WBC. 7. Increased MCV. 8. GERD. 9. History of gastrointestinal bleed. 10.History of bladder cancer status post BCG and tumor removal. 11.History of testicular cancer. 12.History of migraines. 13.History of degenerative joint disease. 14.History of cholecystectomy. RECOMMENDATIONS: Recommend to continue current management, continue IV antibiotics, continue with bronchodilators. Otherwise, the patient will be discharged in the next [address] Medrano. Dr. Gacria will follow tomorrow. Stable but prognosis guarded. MMODL / IJN: [id number] /
[2020-07-26] MEDS: HYDROmorphone 0.5 MG/0.5 ML SYRINGE IVP PRN (01:00)
[2020-07-26] MEDS: CEFEPIME 2 GM in SODIUM CHLORIDE 0.9% 100 ML IVPB SCH (02:47)
[2020-07-26] MEDS: HYDROcodone/APAP 5-325MG 1 EACH TAB PO PRN ×2 (07:05→12:49)
[2020-07-26] MEDS: PANTOPRAZOLE 40 MG/10 ML VIAL IVP SCH (07:05)
[2020-07-26 07:42] VITALS: BP 125/77; TEMP 98
[2020-07-26] MEDS: IPRATROPIUM 0.5 MG/2.5 ML NEBU INHALATION SCH ×2 (07:59→11:54)
[2020-07-26] MEDS: SYMBICORT 80-4.5 MCG INHALER INHALATION SCH (07:59)
[2020-07-26] MEDS: ALBUTEROL NEBULIZED 2.5 MG/3 ML INHALATION PRN ×2 (07:59→11:54)
[2020-07-26 08:02] VITALS: RESP 16
--- NOTE | 2020-07-26 08:40 | XR ---
EXAMINATION TYPE: XR chest 2V DATE OF EXAM: 07/26/2020 COMPARISON: Chest x-ray 07/25/2020 HISTORY: Pneumonia TECHNIQUE: Frontal and lateral views of the chest are obtained. FINDINGS: Patchy density at the lung bases is again noted. There is no evident pneumothorax. Cardiom ediastinal silhouette shows a similar appearance. Less confluent density noted at the right upper lob e. Elevation right hemidiaphragm is again seen. Thoracic cord stimulator noted incidentally, there ar e overlying artifacts. IMPRESSION: There may be some improvement in aeration.
[2020-07-26 12:11] VITALS: PULSE 88
--- NOTE | 2020-07-26 13:07 | P.DS ---
Providers Date of admission: 07/21/20 13:53 Attending physician: Lul Garcia Consults: 07/21/20 13:53 Consult Physician Routine Consulting Provider: Bharath Medrano Consult Reason/Comments: Pneumonia, severe sepsis Do you want consulting provider notified?: Yes Primary care physician: Lul Garcia - Discharge Diagnosis(es) (1) Pneumonia Current Visit: Yes Status: Acute (2) COPD (chronic obstructive pulmonary disease) Current Visit: No Status: Acute (3) Dehydration Current Visit: No Status: Acute (4) Dyspnea Current Visit: No Status: Acute (5) Generalized weakness Current Visit: No Status: Acute Hospital Course: This is discharge home in a 75-year-old white male Center admitted for pneumonia and COPD element. The patient was stabilized with appropriate antibiotic treatment. The patient had underlying sepsis elements and was significantly weak. Appropriate treatment with hydration and antibiotic therapy was instituted. Pulmonology was consulted and the patient after 5 days was stabilized. The patient is now tolerating diet without difficulty and ambulating with walker. The patient will follow-up with me in 2-3 Patient Condition at Discharge: Serious Plan - Discharge Summary Discharge Rx Participant: No New Discharge Prescriptions: New Levofloxacin [Levaquin] 750 mg PO DAILY 5 Days #5 tab Albuterol Nebulized [Ventolin Nebulized] 2.5 mg INHALATION RT-QID PRN ml PRN Reason: Shortness Of Breath Or Wheezing Levofloxacin [Levaquin] 750 mg PO DAILY 7 Days #7 tab Continue Fluticasone/Umeclidin/Vilanter [Trelegy Ellipta 200-62.5-25] 1 puff INHALATION RT-DAILY #1 device HYDROcodone/APAP 5-325MG [[place] 5-325] 1 tab PO Q6H PRN PRN Reason: Pain Omeprazole 40 mg PO DAILY Discontinued Ipratropium-Albuterol Nebulize [Duoneb 0.5 mg-3 mg/3 ml Soln] 3 ml INHALATION RT-QID PRN PRN Reason: Shortness Of Breath Discharge Medication List HYDROcodone/APAP 5-325MG [[place] 5-325] 1 tab PO Q6H PRN 07/21/20 [History] Omeprazole 40 mg PO DAILY 07/21/20 [History] Albuterol Nebulized [Ventolin Nebulized] 2.5 mg INHALATION RT-QID PRN ml 07/26/20 [Rx] Fluticasone/Umeclidin/Vilanter [Trelegy Ellipta 200-62.5-25] 1 puff INHALATION RT-DAILY #1 device 07/26/20 [Rx] Levofloxacin [Levaquin] 750 mg PO DAILY 5 Days #5 tab 07/26/20 [Rx] Levofloxacin [Levaquin] 750 mg PO DAILY 7 Days #7 tab 07/26/20 [Rx] Follow up Appointment(s)/Referral(s): Lul Garcia MD [Primary Care Provider] - 1-2 days Bharath Medrano MD [Family Provider] - 1 Week
--- NOTE | 2020-07-26 14:59 | P.PN ---
Subjective Progress Note Date: 07/26/20 Principal diagnosis: Recurrent community-acquired right lung pneumonia 75-year-old white male patient with past medical history of COPD, previous history of right hemidiaphragmatic paralysis post plication, former smoker, history of bladder cancer with BCG and tumor resection, right testicular cancer with orchiectomy/radiation, chronic back pain, migraine headaches, previous history of GI bleeding, osteoarthritis, who presented to the emergency department on 07/21/2020 for evaluation of general weakness and fatigue. Patient reports nausea and vomiting but no abdominal pain. Patient had diffuse body aches, shortness of breath, which is now improved, reports a headache similar to his chronic migraines, no neck pain. He reports a fall the night before last and she was too weak to get up on his own. 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 His chest x-ray shows airspace disease in the right upper lobe, no evident pneumothorax or pleural effusion, and minimal patchy basilar density on the left. Patient tested negative for COVID-19. Is afebrile, his lab work on admission showed a normal white count of 8.7, hemoglobin of 16.9, lites within renal profile were within normal limits, LFTs were within normal limits, but patient did have a elevated pro calcitonin of 6.41 indicating presence of bacterial infection, possibly pneumonia. Of note patient did have pneumonia in November 2019, for which she was hospitalized, and his most recent follow-up chest x-ray showed clearing of the right lung pneumonia. he has been started on antibiotics in the form of Levaquin, his follow-up blood work shows a white blood cell count of 11.4, hemoglobin 13. electrolytes and renal profile were unremarkable. He had the mild elevation of temperature this morning with a temp of 99.1F, he does have some chest tightness and dry cough. he reports being fully vaccinated for COVID-19 07/23/2020, Mr. Fair is doing slightly better compared to yesterday. The patient had a CAT scan of the chest abdomen and pelvis yesterday and the fi ndings were consistent with a right lower lobe pneumonia. No intra-abdominal pathology. No nausea or emesis this morning. His resting comfortably in bed. Legionella urine antigen has been negative and the patient remains on broad- spectrum antibiotics for now. Note that his pro calcitonin level was high indicating an underlying bacterial infection. Hemodynamically stable. 07/24/2020, the patient is still being treated for right lung pneumonia. He remains on broad-spectrum antibiotics. He is having some headache earlier this morning. Otherwise his gone down to 3 L of oxygen by nasal cannula and his overall feeling better. No nausea. No emesis. Tolerating diet. Remains on broad-spectrum antibiotics with a combination of cefepime and Levaquin. Labs from today are still pending. Otherwise is hemodynamically stable. There is on 3 L nasal cannula and is afebrile. 07/25/2020, the patient is feeling progressively more improved. No GI side effects or complaints or nausea or vomiting or emesis. The patient is requesting full regular diet. He remains on Levaquin and cefepime. A repeat chest x-ray was done and shows interval improvement in the right lung consolidation. This has not completely recovered. I do see some radiographic improvement on today's chest x-ray. He remains on the same antibiotic coverage. Oxygen is at 3 L per minute nasal cannula. No respiratory difficulties at this point in time. He remains afebrile. His blood work shows stable electrolytes, stable renal function, and his white cell count is at 8.2. On 07/26/2020 patient seen in follow-up on medical surgical floor. Currently down to 2 L of oxygen pulse ox 92%, he is breathing comfortably, has had no fever or chills overnight, no worsening dyspnea, no cough, no chest pain, no hemoptysis. He remains on combination of cefepime and Levaquin, he tested negative for COVID-19 via PCR test, Legionella urine antigen was also negative, no new labs today, today's follow-up chest x-ray showing some improvement in aeration, with less confluent density noted at the right upper lobe. Clinically patient has been stable. He is being discharged home Objective - Vital Signs Vital signs: Vital Signs Temp 98.0 F 07/26/20 07:41 Pulse 88 07/26/20 12:04 Resp 16 07/26/20 12:04 BP 125/77 07/26/20 07:41 Pulse Ox 92 L 07/26/20 07:59 Intake & Output 07/25/20 07/26/2007/26/21 18:59 06:59 18:59 Intake Total 480 Output Total 250 Balance 480 -250 Intake: Oral 480 Output: Urine 250 Other: Voiding Method Urinal Urinal # Voids 1 - Exam GENERAL EXAM: Alert, 75-year-old white male, on 3 L of oxygen comfortable in no apparent distress. His have occasional dry cough, HEAD: Normocephalic/atraumatic. EYES: Normal reaction of pupils, equal size. Conjunctiva pink, sclera white. NOSE: Clear with pink turbinates. THROAT: No erythema or exudates. NECK: No masses, no JVD, no thyroid enlargement, no adenopathy. CHEST: No chest wall deformity. Symmetrical expansion. LUNGS: Equal air entry with crackles over right middle and right lower lobe CVS: Regular rate and rhythm, normal S1 and S2, no gallops, no murmurs, no rubs ABDOMEN: Soft, nontender. No hepatosplenomegaly, normal bowel sounds, no guarding or rigidity. EXTREMITIES: No clubbing, no edema, no cyanosis, 2+ pulses and upper and lower extremities. MUSCULOSKELETAL: Muscle strength and tone normal. SPINE: No scoliosis or deformity SKIN: She has scratches in macular rash over his bilateral lower extremities CENTRAL NERVOUS SYSTEM: Alert and oriented -3. No focal deficits, tone is normal in all 4 extremities. PSYCHIATRIC: Alert and oriented -3. Appropriate affect. Intact judgment and insight. - Labs CBC & Chem 7: 07/24/20 07:23 07/24/20 07:23 Labs: Microbiology - Last 24 Hours (Table) 07/21/20 10:50 Blood Culture - Preliminary Blood No Growth after 120 hours 07/21/20 10:50 Blood Culture - Preliminary Blood No Growth after 120 hours Assessment and Plan Plan: Assessment: #1. Recurrent right lung pneumonia, community acquired, urine Legionella antigen was negative, and tested negative for COVID-19 via PCR test, has been fully vaccinated for COVID-19 #2. Previous history of right lung pneumonia in November 2019, from which the patient has recovered #3. Advanced COPD with a baseline FEV1 of 43% of predicted #4. Hemidiaphragmatic paralysis, status post surgical plication #5. From a smoker #6. Chronic neck pain #7. History of bladder cancer that BCG and tumor removal #8. GERD/reflux #9. History of sigmoid stricture related to recurrent diverticulitis and is post a sigmoid colectomy #10. Former smoker #11. 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 Medrano in the office in 7-10 days I performed a history & physical examination of the patient and discussed their management with my nurse practitioner, Ruchi Couch. I reviewed the nurse practitioner's note and agree with the documented findings and plan of care. Lung sounds are diminished breah sounds. The findings and the impression was discussed with the patient. I attest to the documentation by the nurse practitioner. Time with Patient: Less than 30
[2020-07-26] MEDS ORDERED: PANTOPRAZOLE 40 MG TABLET PO SCH (21:00)
== END 2020-07-26 13:40 | disposition home or self-care (01) | DRG 871 ==
LOC: EC 08:48 → 3SCARD 13:53 → 4SSUR 07-22 16:36
PROVIDERS: ADMIT Family Medicine; ATTEND Family Medicine
DX: A41.9 Sepsis, unspecified organism (principal); J69.0 Pneumonitis due to inhalation of food and vomit; J91.8 Pleural effusion in other conditions classified elsewhere; R65.20 Severe sepsis without septic shock; F11.21 Opioid dependence, in remission; J44.9 Chronic obstructive pulmonary disease, unspecified; Z20.822 Contact with and (suspected) exposure to COVID-19; J98.6 Disorders of diaphragm; E86.0 Dehydration; G51.0 Bell's palsy; K21.9 Gastro-esophageal reflux disease without esophagitis; G43.909 Migraine, unspecified, not intractable, without status migrainosus; G89.29 Other chronic pain; M54.9 Dorsalgia, unspecified; M54.31 Sciatica, right side; M54.32 Sciatica, left side; M54.2 Cervicalgia; I25.2 Old myocardial infarction; M19.90 Unspecified osteoarthritis, unspecified site; Z79.51 Long term (current) use of inhaled steroids; Z79.899 Other long term (current) drug therapy; Z87.891 Personal history of nicotine dependence; Z85.51 Personal history of malignant neoplasm of bladder; Z85.47 Personal history of malignant neoplasm of testis; Z90.79 Acquired absence of other genital organ(s); Z90.49 Acquired absence of other specified parts of digestive tract; Z92.3 Personal history of irradiation; Z90.89 Acquired absence of other organs; Z87.19 Personal history of other diseases of the digestive system; Z98.1 Arthrodesis status; Z87.39 Personal history of other diseases of the musculoskeletal system and connective tissue; Z96.82 Presence of neurostimulator; Z86.59 Personal history of other mental and behavioral disorders; Z87.01 Personal history of pneumonia (recurrent); Z98.890 Other specified postprocedural states; W19.XXXA Unspecified fall, initial encounter; Z91.041 Radiographic dye allergy status; Z91.02 Food additives allergy status; Z88.5 Allergy status to narcotic agent; Z91.018 Allergy to other foods; Z91.010 Allergy to peanuts; Z88.0 Allergy status to penicillin; Z88.2 Allergy status to sulfonamides; Z91.048 Other nonmedicinal substance allergy status; Z80.0 Family history of malignant neoplasm of digestive organs; Z83.3 Family history of diabetes mellitus; Z80.3 Family history of malignant neoplasm of breast; Z80.8 Family history of malignant neoplasm of other organs or systems
CPT/HCPCS: 36415; 71046; 71250; 74176; 80048; 80053; 81003; 82150; 82728; 83605; 83615; 83690; 83735; 84145; 85025; 85027; 85610; 85730; 86140; 87040; 87070; 87205; 87449; 87635; 93005; 94640; 94760; 96361; 96374; 99291

== ENCOUNTER → 2020-08-15 | Outpatient (CLI) | payer MEDICARE ==
[2020-08-15 11:45] LABS: HGB 14.1 g/dL (13.0-17.0); MCH 32.6 pg (27.0-32.0); MCHC 32.8 g/dL (32.0-37.0); MCV 99.5 fL (80.0-97.0); Mean Platelet Volume 11.5 fL (9.5-12.2); Platelet Count 257 X 10*3/uL (140-440); RBC 4.32 X 10*6/uL (4.40-5.60); RDW 13.6 % (11.5-14.5); WBC 6.07 X 10*3/uL (4.50-10.00)
[2020-08-15 12:33] LABS: African American GFR (CKD) 101.3 (60.0-200.0); Albumin 4.1 g/dL (3.80-4.90); Albumin/Globulin Ratio 1.78 (1.60-3.17); Anion Gap 8.1 mmol/L (4.00-12.00); Calcium 9.5 mg/dL (8.7-10.3); Carbon Dioxide 27.9 mmol/L (21.6-31.8); Globulin 2.3 g/dL (1.6-3.3); Non-African American GFR(CKD) 87.4 (60.0-200.0); Potassium 4.5 mmol/L (3.5-5.5); Total Bilirubin 0.9 mg/dL (0.2-1.2); Total Protein 6.4 g/dL (6.2-8.2)
== END | disposition home or self-care (01) ==
LOC: LABWHC1 07:18
PROVIDERS: ATTEND Neurological Surgery
DX: M96.1 Postlaminectomy syndrome, not elsewhere classified (principal)
CPT/HCPCS: 36415; 80053; 85027

== ENCOUNTER → 2020-08-31 | Outpatient (CLI) | payer MEDICARE ==
--- NOTE | 2020-08-31 14:24 | XR ---
EXAMINATION TYPE: XR abdomen complete w decub DATE OF EXAM: 08/31/2020 COMPARISON: CT 07/22/2020 HISTORY: Abdominal pain TECHNIQUE: Supine, upright, and lateral decubitus views of the abdomen are obtained on 3 images. FINDINGS: Postop changes are again noted in the lumbosacral spine. There is a generator in left glut eal region, lead extending to the thoracic spinal canal. There is no evidence for pneumoperitoneum. Sclerotic appearance of the anterior right ilium is again seen and is stable. There is retained fecal debris present throughout the distribution of the colon. The bowel gas pattern is unremarkable as there is air throughout nondilated small and large bowel. No sizeable air fluid levels. No mass effects are seen. No unusual calcifications, probable phleboliths in the pelvis. IMPRESSION: Correlate for fecal stasis. Sclerotic appearance to the right ilium is indeterminate.
== END | disposition home or self-care (01) ==
LOC: RADXRMAIN 11:13
PROVIDERS: ATTEND Family Medicine
DX: R10.9 Unspecified abdominal pain (principal)
CPT/HCPCS: 74021

== ENCOUNTER 2020-11-09 04:27 | Inpatient (IN) | payer MEDICARE ==
--- NOTE | 2020-11-09 04:32 | ED ---
SOB HPI - General Stated Complaint: LARS Time Seen by Provider: 11/09/20 04:31 Source: RN notes reviewed, old records reviewed Limitations: altered mental status - History of Present Illness MD Complaint: shortness of breath, cough, anxiety -: hour(s) (1) Severity: severe Severity scale (1-10): 10 Quality: aching Consistency: constant Worsens With: nothing Known History Of: COPD, recurrent pneumonia, aspiration pneumonia Context: recent URI, anxiety, recent illness Associated Symptoms: cough, sputum production Treatments Prior to Arrival: oxygen, bronchodilator - Related Data Home Medications Medication Instructions Recorded Confirmed HYDROcodone/APAP 5-325MG [[place] 1 tab PO Q6H PRN 07/21/20 07/21/20 5-325] Omeprazole 40 mg PO DAILY 07/21/20 07/21/20 Previous Rx's Medication Instructions Recorded Albuterol Nebulized [Ventolin 2.5 mg INHALATION RT-QID PRN ml 07/26/20 Nebulized] Fluticasone/Umeclidin/Vilanter 1 puff INHALATION RT-DAILY #1 07/26/20 [Trelegy Ellipta 200-62.5-25] device Levofloxacin [Levaquin] 750 mg PO DAILY 5 Days #5 tab 07/26/20 Levofloxacin [Levaquin] 750 mg PO DAILY 7 Days #7 tab 07/26/20 Allergies Allergy/AdvReac Type Severity Reaction Status Date / Time chocolate flavor Allergy TRIGGERS Verified 11/09/20 04:42 MIGRAINE Iodinated Contrast Media Allergy Anaphylaxis Verified 11/09/20 04:42 [Iodinated Contrast Media - IV Dye] iodine Allergy Anaphylaxis Verified 11/09/20 04:42 peanut Allergy TRIGGERS Verified 11/09/20 04:42 MIGRAINES Penicillins Allergy Anaphylaxis Verified 11/09/20 04:42 Sulfa (Sulfonamide Allergy Anaphylaxis Verified 11/09/20 04:42 Antibiotics) tramadol Allergy Swelling Verified 11/09/20 04:42 fentanyl AdvReac Severe SEVERE Verified 11/09/20 04:42 MIGRAINES adhesive AdvReac tears skin Verified 11/09/20 04:42 banana AdvReac HEADACHE Verified 11/09/20 04:42 gabapentin AdvReac Confusion Verified 11/09/20 04:42 tree nut [Nut] AdvReac HEADACHE Verified 11/09/20 04:42 yellow dye AdvReac HEADACHE Verified 11/09/20 04:42 OPIODS AdvReac Severe MIGRAINES Uncoded 11/09/20 04:42 Review of Systems ROS Statement: Those systems with pertinent positive or pertinent negative responses have been documented in the HPI. ROS Other: All systems not noted in ROS Statement are negative. Past Medical History Past Medical History: Cancer, COPD, GERD/Reflux, GI Bleed Additional Past Medical History / Comment(s): Other hx: COPD, history of right hemidiaphragmatic paralysis post plication, Bladder cancer with BCG and tumor removal, R testicular cancer with orchiectomy/radiation, chronic back and cervical pain, frequent debilitating migraines, bilateral sciatica, upper GI ble eds, hiatal hernia, gastritis, Diego's palsy, 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 Last Myocardial Infarction Date:: 05/25/14 History of Any Multi-Drug Resistant Organisms: None Reported Past Surgical History: Adenoidectomy, Appendectomy, Back Surgery, Cholecystectomy, Heart Catheterization, Hernia Repair, Orthopedic Surgery, Tonsillectomy Additional Past Surgical History / Comment(s): 08/03/15 EGD colonoscopy,l cardiac cath, several back sx including laminectomy, spinous process removed T11 and T12/cage and arturo, bilateral arthroscopic knee surgeries, left thumb surgeries with rt one having titanium joint, L rotator cuff repair, several nasal polypectomies, RFA cervical/back, R/L inguinal hernia repairs, rt orchiectomy; diaphragmatic hernia repair 03/2019 section of sigmoid colon removed. pt had a back simulator put in his left hip for back pain at [facility]. Past Anesthesia/Blood Transfusion Reactions: No Reported Reaction Past Psychological History: Depression Additional Psychological History / Comment(s): Patient resides with his spouse of 55 yrs. He has chronic pain and debilitating migraines. He has a cane and walker which he uses prn. He has falls. He drives some but spouse does most of the driving. Spouse works afternoons at [employer] in patient check in/previous MRI. Smoking Status: Former smoker Past Alcohol Use History: None Reported Additional Past Alcohol Use History / Comment(s): Pt started smoking in 1959 and quit cigarettes in 2003, smoked 1 1/2ppd Past Drug Use History: None Reported - Past Family History Father Family Medical History: Cancer Additional Family Medical History / Comment(s): Father of stomach ca at the age of 65 yrs. Mother Family Medical History: No Reported History Additional Family Medical History / Comment(s): Mother of "old age". She was 83 yrs old Brother(s) Family Medical History: Diabetes Mellitus Additional Family Medical History / Comment(s): brain tumor Sister(s) Family Medical History: Diabetes Mellitus Additional Family Medical History / Comment(s): breast ca (sisters) Course Vital Signs 11/09/20 11/09/20 04:39 04:45 Temperature 98.5 F Pulse Rate 140 H 116 H Respiratory 40 H Rate Blood Pressure 104/80 O2 Sat by Pulse 93 L Oximetry Medical Decision Making - Lab Data Result diagrams: 11/09/20 04:44 Lab Results 11/09/20 Range/Units 04:44 WBC 7.7 (3.8-10.6) k/uL RBC 5.13 (4.30-5.90) m/uL Hgb 16.7 (13.0-17.5) gm/dL Hct 50.5 (39.0-53.0) % MCV 98.6 (80.0-100.0) fL MCH 32.6 (25.0-35.0) pg MCHC 33.1 (31.0-37.0) g/dL RDW 14.4 (11.5-15.5) % Plt Count 267 (150-450) k/uL MPV 8.0 Neutrophils % 67 % Lymphocytes % 26 % Monocytes % 3 % Eosinophils % 2 % Basophils % 0 % Neutrophils # 5.1 (1.3-7.7) k/uL Lymphocytes # 2.0 (1.0-4.8) k/uL Monocytes # 0.2 (0-1.0) k/uL Eosinophils # 0.2 (0-0.7) k/uL Basophils # 0.0 (0-0.2) k/uL - EKG Data -: EKG Interpreted by Me (EKG shows sinus tachycardia 133 MO 152 QRS 102 QTC 419) - Radiology Data Radiology results: report reviewed (Chest x-ray significant for right lower lobe pneumonia), image reviewed Critical Care Time Critical Care Time: Yes Total Critical Care Time: 31 Disposition Clinical Impression: COPD (chronic obstructive pulmonary disease), Acute pulmonary edema, Acute respiratory failure, Generalized weakness, Pneumonia, Chest pain, Hypoxia Disposition: ADMITTED IP TO THIS HOSP Condition: Serious Is patient prescribed a controlled substance at d/c from ED?: No Referrals: Lul Garcia MD [Primary Care Provider] - 1-2 days
[2020-11-09] MEDS ORDERED: methylPREDNISolone SOD SUCCI 125 MG/2 ML VIAL IV STA (04:35)
[2020-11-09] MEDS ORDERED: IPRATROPIUM 0.5 MG/2.5 ML NEBU INHALATION STA (04:35)
[2020-11-09] MEDS ORDERED: MORPHINE SULFATE 2 MG/ML SYRINGE IVP STA (04:35)
[2020-11-09] MEDS ORDERED: ALBUTEROL NEBULIZED 2.5 MG/3 ML INHALATION STA (04:35)
[2020-11-09] MEDS ORDERED: SODIUM CHLORIDE 0.9% 1,000 ML IV STA (04:35)
[2020-11-09] MEDS ORDERED: LORazepam 2 MG/ML INJ IV STA (04:41)
[2020-11-09 04:55] LABS: Basophils % (A) 0 %; Eosinophils # (A) 0.2 k/uL (0-0.7); Eosinophils % (A) 2 %; HCT 50.5 % (39.0-53.0); HGB 16.7 gm/dL (13.0-17.5); Lymphocytes % (A) 26 %; MCH 32.6 pg (25.0-35.0); MCHC 33.1 g/dL (31.0-37.0); MCV 98.6 fL (80.0-100.0); Monocytes # (A) 0.2 k/uL (0-1.0); Monocytes % (A) 3 %; Neutrophils # (A) 5.1 k/uL (1.3-7.7); Neutrophils % (A) 67 %; Platelet Count 267 k/uL (150-450); RBC 5.13 m/uL (4.30-5.90); RDW 14.4 % (11.5-15.5); WBC 7.7 k/uL (3.8-10.6)
--- NOTE | 2020-11-09 04:58 | XR ---
EXAMINATION TYPE: XR chest 1V portable DATE OF EXAM: 11/09/2020 COMPARISON: 08/19/2020 HISTORY: Short of breath TECHNIQUE: Single view FINDINGS: There is some airspace consolidation and atelectasis right lung base. Left lung is fairly c lear. There are chest leads. Thoracic aorta is atheromatous. Heart size is fairly normal. IMPRESSION: There is extensive pneumonia and atelectasis in the right lower lobe that is mostly new c ompared to old exam. No obvious heart failure.
[2020-11-09] MEDS ORDERED: AZITHROMYCIN 500 MG in SODIUM CHLORIDE 0.9% 250 ML IVPB STA (05:01)
[2020-11-09] MEDS ORDERED: PNEUMONIA PROTOCOL UTILIZED 1 EACH MISC PO PRN (05:01)
[2020-11-09] MEDS ORDERED: NALOXONE 0.4 MG/ML 1 ML VIAL IV PRN (05:01)
[2020-11-09] MEDS ORDERED: ONDANSETRON 4 MG/2 ML VIAL IVP PRN (05:01)
[2020-11-09 05:12] LABS: INR 0.9 (<1.2); Partial Thromboplastin Time 22.7 sec (22.0-30.0); Prothrombin Time 9.5 sec (9.0-12.0)
[2020-11-09 05:19] LABS: ALT 25 U/L (4-49); AST 36 U/L (17-59); African American GFR (CKD) >90 (>60 ml/min/1.73 sqM); Albumin 4.2 g/dL (3.5-5.0); Alkaline Phosphatase 92 U/L (38-126); Anion Gap 9 mmol/L; Blood Urea Nitrogen 17 mg/dL (9-20); Calcium 9.8 mg/dL (8.4-10.2); Carbon Dioxide 28 mmol/L (22-30); Chloride 101 mmol/L (98-107); Creatine Kinase 241 U/L (55-170); Glucose 122 mg/dL (74-99); Magnesium 1.7 mg/dL (1.6-2.3); Non-African American GFR(CKD) 88 (>60 ml/min/1.73 sqM); Potassium 4.6 mmol/L (3.5-5.1); Sodium 138 mmol/L (137-145); Total Bilirubin 0.5 mg/dL (0.2-1.3); Total Protein 7.1 g/dL (6.3-8.2)
[2020-11-09] MEDS: SODIUM CHLORIDE 0.9% 1,000 ML IV SCH ×2 (05:45→17:18)
[2020-11-09] MEDS: methylPREDNISolone SOD SUCCI 125 MG/2 ML VIAL IV SCH ×4 (05:48→23:04)
[2020-11-09] MEDS ORDERED: AZITHROMYCIN 500 MG in SODIUM CHLORIDE 0.9% 250 ML IVPB ONE (07:00)
[2020-11-09] MEDS: IPRATROPIUM-ALBUTEROL 3 ML NEB INHALATION SCH ×4 (08:12→20:29)
[2020-11-09] MEDS: metroNIDAZOLE-NS PMX 500 MG in SALINE 1 100ML.BAG IVPB SCH ×3 (09:57→23:04)
[2020-11-09] MEDS: MORPHINE SULFATE 4 MG/ML SYRINGE IV PRN ×2 (09:58→20:59)
[2020-11-09 11:29] LABS: Glucose,Whole Blood 143 mg/dL (75-99)
[2020-11-09 16:16] LABS: Glucose,Whole Blood 257 mg/dL (75-99)
[2020-11-09] MEDS: INSULIN ASPART (NovoLOG) 100 UNIT/ML VIAL SQ SCH ×2 (17:39→21:24)
[2020-11-09 20:00] LABS: Glucose,Whole Blood 252 mg/dL (75-99)
[2020-11-09] MEDS: LORazepam 2 MG/ML INJ IV PRN (23:54)
[2020-11-10] MEDS: SODIUM CHLORIDE 0.9% 1,000 ML IV SCH ×2 (03:06→12:17)
[2020-11-10 06:19] LABS: Glucose,Whole Blood 130 mg/dL (75-99)
[2020-11-10] MEDS: INSULIN ASPART (NovoLOG) 100 UNIT/ML VIAL SQ SCH ×4 (06:32→20:12)
[2020-11-10 06:33] LABS: Basophils % (A) 0 %; Eosinophils % (A) 0 %; HCT 38.7 % (39.0-53.0); Lymphocytes # (A) 0.4 k/uL (1.0-4.8); Lymphocytes % (A) 3 %; MCH 33.1 pg (25.0-35.0); MCHC 33.2 g/dL (31.0-37.0); MCV 99.8 fL (80.0-100.0); Macrocytosis Slight; Mean Platelet Volume 8.3; Monocytes # (A) 0.5 k/uL (0-1.0); Monocytes % (A) 4 %; Neutrophils # (A) 11.7 k/uL (1.3-7.7); Neutrophils % (A) 92 %; Platelet Count 195 k/uL (150-450); RBC 3.88 m/uL (4.30-5.90); RDW 14.5 % (11.5-15.5); WBC 12.7 k/uL (3.8-10.6)
[2020-11-10] MEDS: methylPREDNISolone SOD SUCCI 125 MG/2 ML VIAL IV SCH ×4 (06:33→23:09)
[2020-11-10] MEDS: MORPHINE SULFATE 4 MG/ML SYRINGE IV PRN ×3 (06:37→18:49)
[2020-11-10 06:41] LABS: HGB 12.8 gm/dL (13.0-17.5)
[2020-11-10 06:52] LABS: ALT 28 U/L (4-49); AST 26 U/L (17-59); African American GFR (CKD) >90 (>60 ml/min/1.73 sqM); Albumin 2.9 g/dL (3.5-5.0); Alkaline Phosphatase 50 U/L (38-126); Anion Gap 6 mmol/L; Blood Urea Nitrogen 15 mg/dL (9-20); Calcium 8.9 mg/dL (8.4-10.2); Carbon Dioxide 25 mmol/L (22-30); Chloride 104 mmol/L (98-107); Glucose 151 mg/dL (74-99); Non-African American GFR(CKD) >90 (>60 ml/min/1.73 sqM); Potassium 4.9 mmol/L (3.5-5.1); Sodium 135 mmol/L (137-145); Total Bilirubin 0.4 mg/dL (0.2-1.3); Total Protein 5.3 g/dL (6.3-8.2)
[2020-11-10] MEDS: IPRATROPIUM-ALBUTEROL 3 ML NEB INHALATION SCH ×4 (08:12→20:06)
[2020-11-10] MEDS: metroNIDAZOLE-NS PMX 500 MG in SALINE 1 100ML.BAG IVPB SCH ×3 (08:27→23:09)
--- NOTE | 2020-11-10 09:05 | XR ---
EXAMINATION TYPE: XR chest 2V DATE OF EXAM: 11/10/2020 COMPARISON: Chest x-ray 11/09/2020 HISTORY: Pneumonia TECHNIQUE: Frontal and lateral views of the chest are obtained. FINDINGS: There is interval improved visualization of the right hemidiaphragm. Subsegmental atelecta tic changes persists. Cardiac mediastinal silhouette is likely stable. There is a thoracic cord stimu lator centered over the spine. No evident pneumothorax. There are overlying leads. Aorta is dense. Pa tient is rotated. IMPRESSION: There is some improvement in aeration. There is underlying emphysema.
[2020-11-10] MEDS: AZITHROMYCIN 500 MG TAB PO SCH (10:00)
[2020-11-10 11:50] LABS: Glucose,Whole Blood 141 mg/dL (75-99)
[2020-11-10 16:39] LABS: Glucose,Whole Blood 134 mg/dL (75-99)
[2020-11-10] MEDS: LORazepam 2 MG/ML INJ IV PRN (20:12)
[2020-11-10 20:39] LABS: Glucose,Whole Blood 150 mg/dL (75-99)
--- NOTE | 2020-11-10 23:15 | P.HPIM ---
History of Present Illness H&P Date: 11/09/20 Chief Complaint: Productive Cough This is a history of physical and a 75-year-old white male with known history of chronic back pain and migraine headaches who saw me on 11/08, who is doing well. He states he woke up in the middle night with productive cough. The patient th en had difficulty with fever and weakness. He said element of COPD and is now admitted for lobar. No voiding difficulties. No significant nausea, vomiting or diarrhea Review of Systems Constitutional: Reports chronic pain, Reports fatigue, Reports fever, Reports weakness Eyes: denies blurred vision, denies pain Cardiovascular: Denies chest pain, Denies shortness of breath Respiratory: Reports as per HPI, Reports cough, Reports respiratory infections, Denies hemoptysis Musculoskeletal: Denies myalgias Integumentary: Denies pruritus, Denies rash Neurological: Denies numbness, Denies weakness Psychiatric: Denies anxiety, Denies depression Past Medical History Past Medical History: Cancer, COPD, GERD/Reflux, GI Bleed, Pneumonia Additional Past Medical History / Comment(s): Other hx: COPD, history of right hemidiaphragmatic paralysis post plication, Bladder cancer with BCG and tumor removal, R testicular cancer with orchiectomy/radiation, chronic back and cervical pain, frequent debilitating migraines, bilateral sciatica, upper GI bleeds, hiatal hernia, gastritis, 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 Last Myocardial Infarction Date:: 05/25/14 History of Any Multi-Drug Resistant Organisms: None Reported Past Surgical History: Adenoidectomy, Appendectomy, Back Surgery, Cholecystectomy, Heart Catheterization, Hernia Repair, Orthopedic Surgery, Tonsillectomy Additional Past Surgical History / Comment(s): 08/03/15 EGD colonoscopy,l cardiac cath, several back sx including laminectomy, spinous process removed T11 and T12/cage and arturo, bilateral arthroscopic knee surgeries, left thumb surgeries with rt one having titanium joint, L rotator cuff repair, several nasal polypectomies, RFA cervical/back, R/L inguinal hernia repairs, rt orchiectomy; diaphragmatic hernia repair 03/2019 section of sigmoid colon removed. pt had a back simulator put in his left hip for back pain at [facility]. Past Anesthesia/Blood Transfusion Reactions: No Reported Reaction Past Psychological History: Depression Additional Psychological History / Comment(s): Patient resides with his spouse of 55 yrs. He has chronic pain and debilitating migraines. He has a cane and walker which he uses prn. He has falls. He drives some but spouse does most of the driving. Spouse works afternoons at [employer] in patient check in/previous MRI. Smoking Status: Former smoker Past Alcohol Use History: None Reported Additional Past Alcohol Use History / Comment(s): Pt started smoking in 1959 and quit cigarettes in 2003, smoked 1 1/2ppd Past Drug Use History: None Reported - Past Family History Father Family Medical History: Cancer Additional Family Medical History / Comment(s): Father of stomach ca at the age of 65 yrs. Mother Family Medical History: No Reported History Additional Family Medical History / Comment(s): Mother of "old age". She was 83 yrs old Brother(s) Family Medical History: Diabetes Mellitus Additional Family Medical History / Comment(s): brain tumor Sister(s) Family Medical History: Diabetes Mellitus Additional Family Medical History / Comment(s): breast ca (sisters) Medications and Allergies Home Medications Medication Instructions Recorded Confirmed Type Albuterol Nebulized [Ventolin 2.5 mg INHALATION RT-QID PRN ml 07/26/20 11/09/20 Rx Nebulized] Fluticasone/Umeclidin/Vilanter 1 puff INHALATION RT-DAILY #1 07/26/20 11/09/20 Rx [Trelegy Ellipta 200-62.5-25] device Acetaminophen [Tylenol] 325 - 650 mg PO Q4H PRN 11/09/20 11/09/20 History Aspirin EC [Ecotrin] 325 mg PO QID PRN 11/09/20 11/09/20 History Methocarbamol [Robaxin-750] 750 mg PO TID PRN 11/09/20 11/09/20 History Allergies Allergy/AdvReac Type Severity Reaction Status Date / Time Iodinated Contrast Media Allergy Anaphylaxis Verified 11/09/20 08:28 [Iodinated Contrast Media - IV Dye] iodine Allergy Anaphylaxis Verified 11/09/20 08:28 Penicillins Allergy Anaphylaxis Verified 11/09/20 08:28 Sulfa (Sulfonamide Allergy Anaphylaxis Verified 11/09/20 08:28 Antibiotics) tramadol Allergy Swelling Verified 11/09/20 08:28 fentanyl AdvReac Severe SEVERE Verified 11/09/20 08:28 MIGRAINES adhesive AdvReac tears skin Verified 11/09/20 08:28 banana AdvReac HEADACHE Verified 11/09/20 08:28 chocolate flavor AdvReac TRIGGERS Verified 11/09/20 08:28 MIGRAINE duloxetine [From Cymbalta] AdvReac Headaches Verified 11/09/20 08:28 gabapentin AdvReac Confusion Verified 11/09/20 08:28 Opioids - Morphine Analogues AdvReac Migraine Verified 11/09/20 08:28 Opioids-Meperidine and AdvReac Migraine Verified 11/09/20 08:28 Related peanut AdvReac TRIGGERS Verified 11/09/20 08:28 MIGRAINES tree nut [Nut] AdvReac HEADACHE Verified 11/09/20 08:28 yellow dye AdvReac HEADACHE Verified 11/09/20 08:28 Physical Exam Vitals: Vital Signs Temp Pulse Pulse Resp BP Pulse Ox 11/10/20 20:18 98 11/10/20 20:06 90 11/10/20 20:05 98.2 F 98 18 130/70 93 L 11/10/20 17:27 97 11/10/20 17:24 84 11/10/20 17:14 96 11/10/20 17:13 84 11/10/20 16:09 97.8 F 62 18 134/74 94 L 11/10/20 14:08 18 11/10/20 12:02 98.0 F 80 18 110/62 95 11/10/20 11:45 88 11/10/20 11:40 84 11/10/20 08:25 97.4 F L 92 81 18 122/65 95 11/10/20 08:14 88 11/10/20 04:10 97.8 F 80 16 128/74 97 Intake and Output 11/10/20 11/10/20 11/11/20 14:59 22:59 06:59 Intake Total 480 240 Output Total 0 0 Balance 480 240 Intake: Oral 480 240 Output: Urine 0 Stool 0 0 Other: Voiding Method Urinal Urinal # Voids 2 # Bowel Movements 0 - Constitutional General appearance: mild distress, thin - EENT Eyes: EOMI - Neck Neck: no lymphadenopathy - Respiratory Respiratory: right: rhonchi, wheezing - Cardiovascular Rhythm: regular Heart sounds: normal: S1, S2 Abnormal Heart Sounds: no S3 Gallop - Gastrointestinal General gastrointestinal: soft, no tenderness - Neurologic Neurologic: CNII-XII intact - Psychiatric Psychiatric: A&O x's 3, appropriate affect Results CBC & Chem 7: 11/10/20 06:12 11/10/20 06:12 Labs: Abnormal Lab Results - Last 24 Hours (Table) 11/10/20 11/10/20 11/10/20 Range/Units 00:15 06:12 06:12 WBC 12.7 H (3.8-10.6) k/uL RBC 3.88 L (4.30-5.90) m/uL Hgb 12.8 L D (13.0-17.5) gm/dL Hct 38.7 L (39.0-53.0) % Neutrophils # 11.7 H (1.3-7.7) k/uL Lymphocytes # 0.4 L (1.0-4.8) k/uL Sodium 135 L (137-145) mmol/L Creatinine 0.55 L (0.66-1.25) mg/dL Glucose 151 H (74-99) mg/dL POC Glucose (mg/dL) (75-99) mg/dL Plasma Lactic Acid Finesse 2.5 H* (0.7-2.0) mmol/L Total Protein 5.3 L (6.3-8.2) g/dL Albumin 2.9 L (3.5-5.0) g/dL 11/10/20 11/10/20 11/10/20 Range/Units 06:17 11:49 16:39 WBC (3.8-10.6) k/uL RBC (4.30-5.90) m/uL Hgb (13.0-17.5) gm/dL Hct (39.0-53.0) % Neutrophils # (1.3-7.7) k/uL Lymphocytes # (1.0-4.8) k/uL Sodium (137-145) mmol/L Creatinine (0.66-1.25) mg/dL Glucose (74-99) mg/dL POC Glucose (mg/dL) 130 H 141 H 134 H (75-99) mg/dL Plasma Lactic Acid Finesse (0.7-2.0) mmol/L Total Protein (6.3-8.2) g/dL Albumin (3.5-5.0) g/dL 11/10/20 Range/Units 20:05 WBC (3.8-10.6) k/uL RBC (4.30-5.90) m/uL Hgb (13.0-17.5) gm/dL Hct (39.0-53.0) % Neutrophils # (1.3-7.7) k/uL Lymphocytes # (1.0-4.8) k/uL Sodium (137-145) mmol/L Creatinine (0.66-1.25) mg/dL Glucose (74-99) mg/dL POC Glucose (mg/dL) 150 H (75-99) mg/dL Plasma Lactic Acid Finesse (0.7-2.0) mmol/L Total Protein (6.3-8.2) g/dL Albumin (3.5-5.0) g/dL Microbiology - Last 24 Hours (Table) 11/09/20 05:05 Blood Culture - Preliminary Blood No Growth after 24 hours 11/09/20 05:20 Blood Culture - Preliminary Blood No Growth after 24 hours Thrombosis Risk Factor Assmnt - Choose All That Apply Each Factor Represents 1 point: Abnormal pulmonary function (COPD), Serious lung disease incl. pneumonia (< 1month) Other Risk Factors: Yes Each Risk Factor Represents 3 Points: Age 75 years or older Other congenital or acquired thrombophilia - If yes, enter type in comment: No Thrombosis Risk Factor Assessment Total Risk Factor Score: 5 Thrombosis Risk Factor Assessment Level: High Risk Assessment and Plan (1) Acute respiratory failure Current Visit: Yes Status: Acute Code(s): J96.00 - ACUTE RESPIRATORY FAILURE, UNSP W HYPOXIA OR HYPERCAPNIA SNOMED Code(s): 98684175 (2) COPD (chronic obstructive pulmonary disease) Current Visit: Yes Status: Acute Code(s): J44.9 - CHRONIC OBSTRUCTIVE PULMONARY DISEASE, UNSPECIFIED SNOMED Code(s): 68582096 (3) Pneumonia Current Visit: Yes Status: Acute Code(s): J18.9 - PNEUMONIA, UNSPECIFIED ORGANISM SNOMED Code(s): 490603035 Plan: Reconcile home medications. . Antibiotic treatment. Nebulizers. Check CBC and CMP in a.m. Supplemental oxygen as needed. The patient is otherwise full code.
--- NOTE | 2020-11-10 23:16 | P.PN ---
Subjective Progress Note Date: 11/10/20 Principal diagnosis: Pneumonia element of COPD This is a continue progress note on a 75-year-old white male who is essentially admitted for lobar pneumonia. The patient is stabilizing. Underlying past medical history of chronic migraine headaches chronic pain with COPD. Objective - Vital Signs Vital signs: Vital Signs Temp 98.2 F 11/10/20 20:05 Pulse 98 11/10/20 20:18 Resp 18 11/10/20 20:05 BP 130/70 11/10/20 20:05 Pulse Ox 93 L 11/10/20 20:05 Intake & Output 11/10/20 11/10/20 11/11/20 06:59 18:59 06:59 Intake Total 720 Output Total 0 0 Balance 720 0 Weight 70 kg Intake: Oral 720 Output: Urine 0 Stool 0 0 Other: Voiding Method Urinal Urinal Urinal # Voids 1 2 # Bowel Movements 0 - Constitutional General appearance: Present: thin - Neck Neck: Absent: lymphadenopathy - Respiratory Respiratory: right: diminished - Cardiovascular Rhythm: regular Heart sounds: normal: S1, S2 Abnormal Heart Sounds: Absent: S3 Gallop - Gastrointestinal General gastrointestinal: Present: soft. Absent: tenderness - Musculoskeletal Musculoskeletal: Present: gait normal - Labs CBC & Chem 7: 11/10/20 06:12 11/10/20 06:12 Labs: Abnormal Lab Results - Last 24 Hours (Table) 11/10/20 11/10/20 11/10/20 Range/Units 00:15 06:12 06:12 WBC 12.7 H (3.8-10.6) k/uL RBC 3.88 L (4.30-5.90) m/uL Hgb 12.8 L D (13.0-17.5) gm/dL Hct 38.7 L (39.0-53.0) % Neutrophils # 11.7 H (1.3-7.7) k/uL Lymphocytes # 0.4 L (1.0-4.8) k/uL Sodium 135 L (137-145) mmol/L Creatinine 0.55 L (0.66-1.25) mg/dL Glucose 151 H (74-99) mg/dL POC Glucose (mg/dL) (75-99) mg/dL Plasma Lactic Acid Finesse 2.5 H* (0.7-2.0) mmol/L Total Protein 5.3 L (6.3-8.2) g/dL Albumin 2.9 L (3.5-5.0) g/dL 11/10/20 11/10/20 11/10/20 Range/Units 06:17 11:49 16:39 WBC (3.8-10.6) k/uL RBC (4.30-5.90) m/uL Hgb (13.0-17.5) gm/dL Hct (39.0-53.0) % Neutrophils # (1.3-7.7) k/uL Lymphocytes # (1.0-4.8) k/uL Sodium (137-145) mmol/L Creatinine (0.66-1.25) mg/dL Glucose (74-99) mg/dL POC Glucose (mg/dL) 130 H 141 H 134 H (75-99) mg/dL Plasma Lactic Acid Finesse (0.7-2.0) mmol/L Total Protein (6.3-8.2) g/dL Albumin (3.5-5.0) g/dL 11/10/20 Range/Units 20:05 WBC (3.8-10.6) k/uL RBC (4.30-5.90) m/uL Hgb (13.0-17.5) gm/dL Hct (39.0-53.0) % Neutrophils # (1.3-7.7) k/uL Lymphocytes # (1.0-4.8) k/uL Sodium (137-145) mmol/L Creatinine (0.66-1.25) mg/dL Glucose (74-99) mg/dL POC Glucose (mg/dL) 150 H (75-99) mg/dL Plasma Lactic Acid Finesse (0.7-2.0) mmol/L Total Protein (6.3-8.2) g/dL Albumin (3.5-5.0) g/dL Microbiology - Last 24 Hours (Table) 11/09/20 05:05 Blood Culture - Preliminary Blood No Growth after 24 hours 11/09/20 05:20 Blood Culture - Preliminary Blood No Growth after 24 hours Assessment and Plan (1) Acute respiratory failure Current Visit: Yes Status: Acute Code(s): J96.00 - ACUTE RESPIRATORY FAILURE, UNSP W HYPOXIA OR HYPERCAPNIA SNOMED Code(s): 95606997 (2) COPD (chronic obstructive pulmonary disease) Current Visit: Yes Status: Acute Code(s): J44.9 - CHRONIC OBSTRUCTIVE PULMONARY DISEASE, UNSPECIFIED SNOMED Code(s): 89752254 (3) Pneumonia Current Visit: Yes Status: Acute Code(s): J18.9 - PNEUMONIA, UNSPECIFIED ORGANISM SNOMED Code(s): 369782208 Plan: Continue empiric treatment. Appreciate pulmonology input. Check CBC and CMP in a.m. Time with Patient: Greater than 30
[2020-11-11] MEDS: SODIUM CHLORIDE 0.9% 1,000 ML IV SCH ×2 (03:14→06:17)
[2020-11-11] MEDS: MORPHINE SULFATE 4 MG/ML SYRINGE IV PRN (04:55)
[2020-11-11 06:09] LABS: Glucose,Whole Blood 120 mg/dL (75-99)
[2020-11-11] MEDS: INSULIN ASPART (NovoLOG) 100 UNIT/ML VIAL SQ SCH (06:17)
[2020-11-11] MEDS: methylPREDNISolone SOD SUCCI 125 MG/2 ML VIAL IV SCH (06:17)
--- NOTE | 2020-11-11 08:01 | P.DS ---
Providers Date of admission: 11/09/20 05:02 Attending physician: Lul Garcia Primary care physician: Lul Garcia - Discharge Diagnosis(es) (1) Acute respiratory failure Current Visit: Yes Status: Acute (2) COPD (chronic obstructive pulmonary disease) Current Visit: Yes Status: Acute (3) Pneumonia Current Visit: Yes Status: Acute Patient Condition at Discharge: Serious Plan - Discharge Summary New Discharge Prescriptions: New predniSONE [Deltasone] 0 mg PO DIRECTED #18 tab Azithromycin [Zithromax] 500 mg PO DAILY #3 tab Continue Albuterol Nebulized [Ventolin Nebulized] 2.5 mg INHALATION RT-QID PRN ml PRN Reason: Shortness Of Breath Or Wheezing Fluticasone/Umeclidin/Vilanter [Trelegy Ellipta 200-62.5-25] 1 puff INHALATION RT-DAILY #1 device Methocarbamol [Robaxin-750] 750 mg PO TID PRN PRN Reason: Muscle Spasm Acetaminophen [Tylenol] 325 - 650 mg PO Q4H PRN PRN Reason: Pain Aspirin EC [Ecotrin] 325 mg PO QID PRN PRN Reason: Pain Discharge Medication List Albuterol Nebulized [Ventolin Nebulized] 2.5 mg INHALATION RT-QID PRN ml 07/26/20 [Rx] Fluticasone/Umeclidin/Vilanter [Trelegy Ellipta 200-62.5-25] 1 puff INHALATION RT-DAILY #1 device 07/26/20 [Rx] Acetaminophen [Tylenol] 325 - 650 mg PO Q4H PRN 11/09/20 [History] Aspirin EC [Ecotrin] 325 mg PO QID PRN 11/09/20 [History] Methocarbamol [Robaxin-750] 750 mg PO TID PRN 11/09/20 [History] Azithromycin [Zithromax] 500 mg PO DAILY #3 tab 11/11/20 [Rx] predniSONE [Deltasone] 0 mg PO DIRECTED #18 tab 11/11/20 [Rx] Follow up Appointment(s)/Referral(s): Lul Garcia MD [Primary Care Provider] - 1-2 days
[2020-11-11] MEDS: IPRATROPIUM-ALBUTEROL 3 ML NEB INHALATION SCH ×2 (08:07→12:07)
[2020-11-11] MEDS: metroNIDAZOLE-NS PMX 500 MG in SALINE 1 100ML.BAG IVPB SCH (08:30)
[2020-11-11] MEDS: AZITHROMYCIN 500 MG TAB PO SCH (08:48)
[2020-11-11 09:02] LABS: HCT 38.4 % (39.0-53.0); HGB 12.5 gm/dL (13.0-17.5); MCH 31.7 pg (25.0-35.0); MCHC 32.5 g/dL (31.0-37.0); MCV 97.6 fL (80.0-100.0); Mean Platelet Volume 8.2; Platelet Count 240 k/uL (150-450); RBC 3.93 m/uL (4.30-5.90); RDW 15.2 % (11.5-15.5); WBC 15.2 k/uL (3.8-10.6)
[2020-11-11 09:13] LABS: ALT 25 U/L (4-49); AST 21 U/L (17-59); African American GFR (CKD) >90 (>60 ml/min/1.73 sqM); Albumin 3.3 g/dL (3.5-5.0); Alkaline Phosphatase 58 U/L (38-126); Anion Gap 6 mmol/L; Blood Urea Nitrogen 19 mg/dL (9-20); Calcium 9.5 mg/dL (8.4-10.2); Carbon Dioxide 25 mmol/L (22-30); Chloride 105 mmol/L (98-107); Glucose 141 mg/dL (74-99); Non-African American GFR(CKD) >90 (>60 ml/min/1.73 sqM); Potassium 4.8 mmol/L (3.5-5.1); Sodium 136 mmol/L (137-145); Total Bilirubin 0.4 mg/dL (0.2-1.3); Total Protein 5.7 g/dL (6.3-8.2)
[2020-11-11 09:27] VITALS: BP 137/69; PULSE 71; RESP 12; TEMP 98.2
[2020-11-11 11:32] LABS: Glucose,Whole Blood 126 mg/dL (75-99)
== END 2020-11-11 11:55 | disposition home or self-care (01) | DRG 193 ==
LOC: EC 04:27 → 3SCARD 05:02
PROVIDERS: ADMIT Family Medicine; ATTEND Family Medicine
DX: J18.1 Lobar pneumonia, unspecified organism (principal); J96.01 Acute respiratory failure with hypoxia; J81.0 Acute pulmonary edema; J43.9 Emphysema, unspecified; F32.9 Major depressive disorder, single episode, unspecified; G89.29 Other chronic pain; Y95 Nosocomial condition; Z20.822 Contact with and (suspected) exposure to COVID-19; M54.32 Sciatica, left side; I25.2 Old myocardial infarction; M54.31 Sciatica, right side; K21.9 Gastro-esophageal reflux disease without esophagitis; F41.9 Anxiety disorder, unspecified; G43.909 Migraine, unspecified, not intractable, without status migrainosus; Z85.47 Personal history of malignant neoplasm of testis; Z85.51 Personal history of malignant neoplasm of bladder; Z87.01 Personal history of pneumonia (recurrent); Z87.891 Personal history of nicotine dependence; Z96.82 Presence of neurostimulator; Z91.041 Radiographic dye allergy status; Z91.02 Food additives allergy status; Z91.010 Allergy to peanuts; Z88.0 Allergy status to penicillin; Z88.2 Allergy status to sulfonamides; Z91.018 Allergy to other foods; Z88.5 Allergy status to narcotic agent; Z91.048 Other nonmedicinal substance allergy status; Z79.82 Long term (current) use of aspirin; Z79.899 Other long term (current) drug therapy; Z86.010 Personal history of colon polyps; Z80.0 Family history of malignant neoplasm of digestive organs
CPT/HCPCS: 36415; 71045; 71046; 80053; 82550; 83605; 83735; 83880; 84484; 85025; 85027; 85610; 85730; 87040; 87635; 93005; 94640; 94660; 94760; 96374; 96375; 99291

== ENCOUNTER → 2020-12-23 | Outpatient (CLI) | payer MEDICARE | END | disposition home or self-care (01) | LOC: LABWHC1 07:19 | PROVIDERS: ATTEND Family Medicine | DX: Z12.5 Encounter for screening for malignant neoplasm of prostate (principal) | CPT/HCPCS: 36415; 84153 ==

== ENCOUNTER 2021-01-01 15:44 | Emergency (ER) | payer MEDICARE ==
[2021-01-01] MEDS ORDERED: methylPREDNISolone SOD SUCCI 125 MG/2 ML VIAL IM ONE (16:23)
[2021-01-01] MEDS ORDERED: diphenhydrAMINE 50 MG CAP PO STA (16:23)
[2021-01-01 17:22] LABS: Basophils % (A) 0 %; Eosinophils # (A) 0.3 k/uL (0-0.7); Eosinophils % (A) 5 %; HCT 40.4 % (39.0-53.0); HGB 13.8 gm/dL (13.0-17.5); Lymphocytes # (A) 1.2 k/uL (1.0-4.8); Lymphocytes % (A) 18 %; MCH 32.6 pg (25.0-35.0); MCHC 34.1 g/dL (31.0-37.0); MCV 95.6 fL (80.0-100.0); Monocytes # (A) 0.4 k/uL (0-1.0); Monocytes % (A) 6 %; Neutrophils # (A) 4.3 k/uL (1.3-7.7); Neutrophils % (A) 67 %; Platelet Count 191 k/uL (150-450); RBC 4.22 m/uL (4.30-5.90); RDW 14.1 % (11.5-15.5); WBC 6.5 k/uL (3.8-10.6)
[2021-01-01 17:37] LABS: ALT 31 U/L (4-49); AST 33 U/L (17-59); African American GFR (CKD) >90 (>60 ml/min/1.73 sqM); Albumin 3.6 g/dL (3.5-5.0); Alkaline Phosphatase 83 U/L (38-126); Anion Gap 5 mmol/L; Blood Urea Nitrogen 16 mg/dL (9-20); Calcium 9.1 mg/dL (8.4-10.2); Carbon Dioxide 27 mmol/L (22-30); Chloride 100 mmol/L (98-107); Glucose 112 mg/dL (74-99); Non-African American GFR(CKD) 90 (>60 ml/min/1.73 sqM); Potassium 4.5 mmol/L (3.5-5.1); Sodium 132 mmol/L (137-145); Total Bilirubin 0.4 mg/dL (0.2-1.3); Total Protein 6.3 g/dL (6.3-8.2)
--- NOTE | 2021-01-01 17:43 | ED ---
Skin/Abscess/FB HPI - General Chief complaint: Skin/Abscess/Foreign Body Stated complaint: Poss Allergic Reaction Time Seen by Provider: 01/01/21 16:14 Source: patient, RN notes reviewed Mode of arrival: ambulatory Limitations: no limitations - History of Present Illness Initial comments: 75-year-old male presents to emergency department complaining of right hand pain. He recently had hand surgery was given several medications. He notes that he thinks he is having an ALLERGIC reaction or medications. He notes that his hand has become itchy under the splint mildly erythematous. Patient denied any other issues or complaints. Patient was concerned for possible ALLERGIC reaction secondary to emergency department. Patient does have follow-up with surgeon in 2 weeks. She denied any chest pain shortness of breath headache nausea vomiting diarrhea constipation fever fatigue chills. - Related Data Home Medications Medication Instructions Recorded Confirmed Acetaminophen [Tylenol] 325 - 650 mg PO Q4H PRN 11/09/20 11/09/20 Aspirin EC [Ecotrin] 325 mg PO QID PRN 11/09/20 11/09/20 Methocarbamol [Robaxin-750] 750 mg PO TID PRN 11/09/20 11/09/20 Previous Rx's Medication Instructions Recorded Albuterol Nebulized [Ventolin 2.5 mg INHALATION RT-QID PRN ml 07/26/20 Nebulized] Fluticasone/Umeclidin/Vilanter 1 puff INHALATION RT-DAILY #1 07/26/20 [Trelegy Ellipta 200-62.5-25] device Azithromycin [Zithromax] 500 mg PO DAILY #3 tab 11/11/20 predniSONE [Deltasone] 0 mg PO DIRECTED #18 tab 11/11/20 Doxycycline Monohydrate [Monodox] 100 mg PO Q12HR #20 cap 01/01/21 Allergies Allergy/AdvReac Type Severity Reaction Status Date / Time Iodinated Contrast Media Allergy Anaphylaxis Verified 01/01/21 15:50 [Iodinated Contrast Media - IV Dye] iodine Allergy Anaphylaxis Verified 01/01/21 15:50 Penicillins Allergy Anaphylaxis Verified 01/01/21 15:50 Sulfa (Sulfonamide Allergy Anaphylaxis Verified 01/01/21 15:50 Antibiotics) tramadol Allergy Swelling Verified 01/01/21 15:50 fentanyl AdvReac Severe SEVERE Verified 01/01/21 15:50 MIGRAINES adhesive AdvReac tears skin Verified 01/01/21 15:50 banana AdvReac HEADACHE Verified 01/01/21 15:50 chocolate flavor AdvReac TRIGGERS Verified 01/01/21 15:50 MIGRAINE duloxetine [From Cymbalta] AdvReac Headaches Verified 01/01/21 15:50 gabapentin AdvReac Confusion Verified 01/01/21 15:50 Opioids - Morphine Analogues AdvReac Migraine Verified 01/01/21 15:50 Opioids-Meperidine and AdvReac Migraine Verified 01/01/21 15:50 Related peanut AdvReac TRIGGERS Verified 01/01/21 15:50 MIGRAINES tree nut [Nut] AdvReac HEADACHE Verified 01/01/21 15:50 yellow dye AdvReac HEADACHE Verified 01/01/21 15:50 Review of Systems ROS Statement: Those systems with pertinent positive or pertinent negative responses have been documented in the HPI. ROS Other: All systems not noted in ROS Statement are negative. 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 Last Myocardial Infarction Date:: 05/25/14 History of Any Multi-Drug Resistant Organisms: None Reported Past Surgical History: Adenoidectomy, Appendectomy, Back Surgery, Cholecystectomy, Heart Catheterization, Hernia Repair, Orthopedic Surgery, Tonsillectomy Additional Past Surgical History / Comment(s): 08/03/15 EGD colonoscopy,l cardiac cath, several back sx including laminectomy, spinous process removed T11 and T12/cage and arturo, bilateral arthroscopic knee surgeries, left thumb surgeries with rt one having titanium joint, L rotator cuff repair, several nasal polypectomies, RFA cervical/back, R/L inguinal hernia repairs, rt orchiectomy; diaphragmatic hernia repair 03/2019 section of sigmoid colon removed. pt had a back simulator put in his left hip for back pain at [facility]. rt hand 01/15 Past Anesthesia/Blood Transfusion Reactions: No Reported Reaction Past Psychological History: Depression Smoking Status: Former smoker Past Alcohol Use History: None Reported Past Drug Use History: None Reported - Past Family History Father Family Medical History: Cancer Additional Family Medical History / Comment(s): Father of stomach ca at the age of 65 yrs. Mother Family Medical History: No Reported History Additional Family Medical History / Comment(s): Mother of "old age". She was 83 yrs old Brother(s) Family Medical History: Diabetes Mellitus Additional Family Medical History / Comment(s): brain tumor Sister(s) Family Medical History: Diabetes Mellitus Additional Family Medical History / Comment(s): breast ca (sisters) General Exam Limitations: no limitations General appearance: alert, in no apparent distress Head exam: Present: atraumatic, normocephalic, normal inspection Eye exam: Present: normal appearance, PERRL, EOMI. Absent: scleral icterus, conjunctival injection, periorbital swelling ENT exam: Present: normal exam, mucous membranes moist Neck exam: Present: normal inspection Respiratory exam: Present: normal lung sounds bilaterally. Absent: respiratory distress, wheezes, rales, rhonchi, stridor Cardiovascular Exam: Present: regular rate, normal rhythm, normal heart sounds. Absent: systolic murmur, diastolic murmur, rubs, gallop, clicks Extremities exam: Present: normal inspection, full ROM, normal capillary refill. Absent: tenderness, pedal edema, joint swelling, calf tenderness Right General: Present: other (Right hand and splint was given postsurgical. Very mild erythema to the fingers and forearm proximal displacement. Patient notes that for his itchy.) Neurological exam: Present: alert, oriented X3 Psychiatric exam: Present: normal affect, normal mood Skin exam: Present: warm, dry, intact, normal color. Absent: rash Course Vital Signs 01/01/21 15:46 Temperature 98.1 F Pulse Rate 82 Respiratory 16 Rate Blood Pressure 164/78 O2 Sat by Pulse 95 Oximetry Medical Decision Making - Medical Decision Making 75-year-old male complaining of possible ALLERGIC reaction to medication given post surgery. 125 mg Solu-Medrol, 50 mg of Benadryl, basic labs ordered. Labs unremarkable white blood cells within normal limits. Patient be given antibiotics per his request. Patient informed he can take Benadryl at home for symptom control of itch under his splint. Case discussed with Dr. Martell, patient discharge home. - Lab Data Result diagrams: 01/01/21 17:12 01/01/21 17:12 Lab Results 01/01/21 01/01/21 Range/Units 17:12 17:12 WBC 6.5 (3.8-10.6) k/uL RBC 4.22 L (4.30-5.90) m/uL Hgb 13.8 (13.0-17.5) gm/dL Hct 40.4 (39.0-53.0) % MCV 95.6 (80.0-100.0) fL MCH 32.6 (25.0-35.0) pg MCHC 34.1 (31.0-37.0) g/dL RDW 14.1 (11.5-15.5) % Plt Count 191 (150-450) k/uL MPV 8.0 Neutrophils % 67 % Lymphocytes % 18 % Monocytes % 6 % Eosinophils % 5 % Basophils % 0 % Neutrophils # 4.3 (1.3-7.7) k/uL Lymphocytes # 1.2 (1.0-4.8) k/uL Monocytes # 0.4 (0-1.0) k/uL Eosinophils # 0.3 (0-0.7) k/uL Basophils # 0.0 (0-0.2) k/uL Sodium 132 L (137-145) mmol/L Potassium 4.5 (3.5-5.1) mmol/L Chloride 100 (98-107) mmol/L Carbon Dioxide 27 (22-30) mmol/L Anion Gap 5 mmol/L BUN 16 (9-20) mg/dL Creatinine 0.75 (0.66-1.25) mg/dL Est GFR (CKD-EPI)AfAm >90 (>60 ml/min/1.73 sqM) Est GFR (CKD-EPI)NonAf 90 (>60 ml/min/1.73 sqM) Glucose 112 H (74-99) mg/dL Calcium 9.1 (8.4-10.2) mg/dL Total Bilirubin 0.4 (0.2-1.3) mg/dL AST 33 (17-59) U/L ALT 31 (4-49) U/L Alkaline Phosphatase 83 (38-126) U/L Total Protein 6.3 (6.3-8.2) g/dL Albumin 3.6 (3.5-5.0) g/dL Disposition Clinical Impression: Allergic reaction caused by a drug Disposition: HOME SELF-CARE Condition: Stable Instructions (If sedation given, give patient instructions): General Allergic Reaction (ED) Additional Instructions: Please return to the Emergency Department if symptoms worsen or any other concerns. Follow-up with primary care 1-2 days. Follow-up with surgeon as planned. Take antibiotic as prescribed until complete. Can take Benadryl as needed for symptomatic control. Is patient prescribed a controlled substance at d/c from ED?: No Referrals: Lul Garcia MD [Primary Care Provider] - 1-2 days Time of Disposition: 17:43
[2021-01-01 18:23] VITALS: BP 156/76; PULSE 83; RESP 18; TEMP 98.2
== END 2021-01-01 18:21 | disposition home or self-care (01) ==
LOC: EC 15:44
DX: M79.641 Pain in right hand (principal); T50.905A Adverse effect of unspecified drugs, medicaments and biological substances, initial encounter; J44.9 Chronic obstructive pulmonary disease, unspecified; K21.9 Gastro-esophageal reflux disease without esophagitis; F32.9 Major depressive disorder, single episode, unspecified; Z79.82 Long term (current) use of aspirin; Z88.0 Allergy status to penicillin; Z88.2 Allergy status to sulfonamides; Z88.1 Allergy status to other antibiotic agents; Z88.5 Allergy status to narcotic agent; Z85.47 Personal history of malignant neoplasm of testis; Z85.51 Personal history of malignant neoplasm of bladder; Z87.19 Personal history of other diseases of the digestive system; Z90.49 Acquired absence of other specified parts of digestive tract; Z90.89 Acquired absence of other organs; Z87.891 Personal history of nicotine dependence
CPT/HCPCS: 99283; 96372; 36415; 80053; 85025; J2930

== ENCOUNTER 2021-01-29 12:17 | Emergency (ER) | payer MEDICARE ==
[2021-01-29 13:20] VITALS: BP 160/80; PULSE 75; RESP 16; TEMP 98.5
[2021-01-29] MEDS ORDERED: HYDROcodone/APAP 7.5-325MG 1 EACH TAB PO ONE (14:23)
--- NOTE | 2021-01-29 14:30 | ED ---
Upper Extremity HPI - General Chief Complaint: Extremity Injury, Upper Stated Complaint: Rt arm in cast,radiating arm pain Time Seen by Provider: 01/29/21 14:10 Source: patient, RN notes reviewed Mode of arrival: ambulatory Limitations: no limitations - Related Data Home Medications Medication Instructions Recorded Confirmed Fluticasone/Salmeterol [Advair 1 puff INHALATION RT-BID 01/01/21 01/01/21 500-50 Diskus] Ibuprofen [Advil] 800 mg PO Q8HR PRN 01/01/21 01/01/21 Ipratropium-Albuterol Nebulize 3 ml INHALATION RT-QID PRN 01/01/21 01/01/21 [Duoneb 0.5 mg-3 mg/3 ml Soln] Omeprazole 20 mg PO DAILY 01/01/21 01/01/21 Ondansetron Odt [Zofran Odt] 4 mg PO Q8HR PRN 01/01/21 01/01/21 Previous Rx's Medication Instructions Recorded Doxycycline Monohydrate [Monodox] 100 mg PO Q12HR #20 cap 01/01/21 HYDROcodone/APAP 5-325MG [[place] 1 tab PO Q6H PRN #12 tab 01/29/21 5-325] methocarbamoL [Robaxin] 500 mg PO TID PRN #10 tab 01/29/21 Allergies Allergy/AdvReac Type Severity Reaction Status Date / Time celecoxib [From Celebrex] Allergy Unknown Verified 01/29/21 13:20 Iodinated Contrast Media Allergy Anaphylaxis Verified 01/29/21 13:20 [Iodinated Contrast Media - IV Dye] iodine Allergy Anaphylaxis Verified 01/29/21 13:20 Penicillins Allergy Anaphylaxis Verified 01/29/21 13:20 Sulfa (Sulfonamide Allergy Anaphylaxis Verified 01/29/21 13:20 Antibiotics) tramadol Allergy Swelling Verified 01/29/21 13:20 fentanyl AdvReac Severe SEVERE Verified 01/29/21 13:20 MIGRAINES adhesive AdvReac tears skin Verified 01/29/21 13:20 banana AdvReac HEADACHE Verified 01/29/21 13:20 chocolate flavor AdvReac TRIGGERS Verified 01/29/21 13:20 MIGRAINE duloxetine [From Cymbalta] AdvReac Headaches Verified 01/29/21 13:20 gabapentin AdvReac Confusion Verified 01/29/21 13:20 Opioids - Morphine Analogues AdvReac Migraine Verified 01/29/21 13:20 Opioids-Meperidine and AdvReac Migraine Verified 01/29/21 13:20 Related peanut AdvReac TRIGGERS Verified 01/29/21 13:20 MIGRAINES tree nut [Nut] AdvReac HEADACHE Verified 01/29/21 13:20 yellow dye AdvReac HEADACHE Verified 01/29/21 13:20 Review of Systems ROS Statement: Those systems with pertinent positive or pertinent negative responses have been documented in the HPI. ROS Other: All systems not noted in ROS Statement are negative. 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 Last Myocardial Infarction Date:: 05/25/14 History of Any Multi-Drug Resistant Organisms: None Reported Past Surgical History: Adenoidectomy, Appendectomy, Back Surgery, Cholecystectomy, Heart Catheterization, Hernia Repair, Orthopedic Surgery, Tonsillectomy Additional Past Surgical History / Comment(s): 08/03/15 EGD colonoscopy,l cardiac cath, several back sx including laminectomy, spinous process removed T11 and T12/cage and arturo, bilateral arthroscopic knee surgeries, left thumb surgeries with rt one having titanium joint, L rotator cuff repair, several nasal polypectomies, RFA cervical/back, R/L inguinal hernia repairs, rt orchiectomy; diaphragmatic hernia repair 03/2019 section of sigmoid colon removed. pt had a ba ck simulator put in his left hip for back pain at [facility]. rt hand 01/15 Past Anesthesia/Blood Transfusion Reactions: No Reported Reaction Past Psychological History: Depression Smoking Status: Former smoker Past Alcohol Use History: None Reported Past Drug Use History: None Reported - Past Family History Father Family Medical History: Cancer Additional Family Medical History / Comment(s): Father of stomach ca at the age of 65 yrs. Mother Family Medical History: No Reported History Additional Family Medical History / Comment(s): Mother of "old age". She was 83 yrs old Brother(s) Family Medical History: Diabetes Mellitus Additional Family Medical History / Comment(s): brain tumor Sister(s) Family Medical History: Diabetes Mellitus Additional Family Medical History / Comment(s): breast ca (sisters) General Exam Limitations: no limitations Course Vital Signs 01/29/21 13:17 Temperature 98.5 F Pulse Rate 75 Respiratory 16 Rate Blood Pressure 160/80 O2 Sat by Pulse 95 Oximetry Disposition Clinical Impression: Cervical radiculopathy, Right arm pain Disposition: HOME SELF-CARE Condition: Stable Instructions (If sedation given, give patient instructions): Cervical Radiculopathy (ED) Additional Instructions: Please return to the Emergency Department if symptoms worsen or any other concerns. Prescriptions: HYDROcodone/APAP 5-325MG [[place] 5-325] 1 tab PO Q6H PRN #12 tab PRN Reason: Pain methocarbamoL [Robaxin] 500 mg PO TID PRN #10 tab PRN Reason: muscle spasms Is patient prescribed a controlled substance at d/c from ED?: No Referrals: Lul Garcia MD [Primary Care Provider] - 1-2 days Ashleigh Cortes DO [Doctor of Osteopathic Medicine] - 1-2 days Time of Disposition: 14:27
== END 2021-01-29 14:50 | disposition home or self-care (01) ==
LOC: EC 12:17
DX: M54.12 Radiculopathy, cervical region (principal); M79.601 Pain in right arm; J44.9 Chronic obstructive pulmonary disease, unspecified; K21.9 Gastro-esophageal reflux disease without esophagitis; F32.A Depression, unspecified; Z87.891 Personal history of nicotine dependence; Z79.1 Long term (current) use of non-steroidal anti-inflammatories (NSAID); Z79.899 Other long term (current) drug therapy
CPT/HCPCS: 99283

== ENCOUNTER 2021-03-24 00:50 | Inpatient (IN) | payer MEDICARE ==
[2021-03-24] MEDS ORDERED: ASPIRIN 81 MG PO STA (01:22)
[2021-03-24] MEDS ORDERED: NITROGLYCERIN SL TABS 0.4 MG TAB SUBLINGUAL STA (01:22)
--- NOTE | 2021-03-24 01:40 | ED ---
General Adult HPI - General Chief complaint: Chest Pain Stated complaint: Chest Pain Time Seen by Provider: 03/24/21 01:04 Source: patient, RN notes reviewed Mode of arrival: wheelchair Limitations: no limitations - History of Present Illness Initial comments: This is a pleasant 75-year-old male who presents to the emergency track complaining of left-sided chest pain which is burning in nature. Patient states the pain stays in the left anterior chest but does radiate to the shoulder and the left arm. Pain started about 1 hour prior to arrival. Patient states he was just sitting watching TV when it started. Patient has no history of cardiac disease but does have a history of COPD bladder cancer, previous GI bleed. Patient has a history of cigarette smoking but states that he quit about 10 years ago. No diaphoresis, no nausea, sensation of shortness of breath. Note that the patient is being seen during the COVID-19 pandemic. Patient has been fully vaccinated and boosted for COVID-19. No headache, no fever or chills, no changes in vision or hearing, no sore throat or difficulty with speech, no neck pain, no abdominal pain, no nausea or vomiting, no changes in urination or bowel movements, no numbness or tingling, no extremity pain, no skin rashes or lesions. - Related Data Home Medications Medication Instructions Recorded Confirmed Fluticasone/Salmeterol [Advair 1 puff INHALATION RT-BID 01/01/21 03/24/21 500-50 Diskus] Ipratropium-Albuterol Nebulize 3 ml INHALATION RT-BID 01/01/21 03/24/21 [Duoneb 0.5 mg-3 mg/3 ml Soln] Acetaminophen Tab [Tylenol Tab] 1,000 mg PO Q6H PRN 03/24/21 03/24/21 Albuterol Nebulized [Ventolin 2.5 mg INHALATION RT-BID 03/24/21 03/24/21 Nebulized] Qhgrpyy-Wwlf-Hxsp [id number] 1 tab PO Q6H PRN 03/24/21 03/24/21 [Excedrin] Omeprazole 40 mg PO DAILY 03/24/21 03/24/21 Allergies Allergy/AdvReac Type Severity Reaction Status Date / Time celecoxib [From Celebrex] Allergy Unknown Verified 03/24/21 07:14 Iodinated Contrast Media Allergy Anaphylaxis Verified 03/24/21 07:14 [Iodinated Contrast Media - IV Dye] iodine Allergy Anaphylaxis Verified 03/24/21 07:14 Penicillins Allergy Anaphylaxis Verified 03/24/21 07:14 Sulfa (Sulfonamide Allergy Anaphylaxis Verified 03/24/21 07:14 Antibiotics) tramadol Allergy Swelling Verified 03/24/21 07:14 fentanyl AdvReac Severe SEVERE Verified 03/24/21 07:14 MIGRAINES adhesive AdvReac tears skin Verified 03/24/21 07:14 banana AdvReac HEADACHE Verified 03/24/21 07:14 chocolate flavor AdvReac TRIGGERS Verified 03/24/21 07:14 MIGRAINE duloxetine [From Cymbalta] AdvReac Headaches Verified 03/24/21 07:14 gabapentin AdvReac Confusion Verified 03/24/21 07:14 Opioids - Morphine Analogues AdvReac Migraine Verified 03/24/21 07:14 Opioids-Meperidine and AdvReac Migraine Verified 03/24/21 07:14 Related peanut AdvReac TRIGGERS Verified 03/24/21 07:14 MIGRAINES tree nut [Nut] AdvReac HEADACHE Verified 03/24/21 07:14 yellow dye AdvReac HEADACHE Verified 03/24/21 07:14 Review of Systems ROS Statement: Those systems with pertinent positive or pertinent negative responses have been documented in the HPI. ROS Other: All systems not noted in ROS Statement are negative. 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 Last Myocardial Infarction Date:: 05/25/14 History of Any Multi-Drug Resistant Organisms: None Reported Past Surgical History: Adenoidectomy, Appendectomy, Back Surgery, Cholecystectomy, Heart Catheterization, Hernia Repair, Orthopedic Surgery, Tonsillectomy Additional Past Surgical History / Comment(s): 08/03/15 EGD colonoscopy,l cardiac cath, several back sx including laminectomy, spinous process removed T11 and T12/cage and arturo, bilateral arthroscopic knee surgeries, left thumb surgeries with rt one having titanium joint, L rotator cuff repair, several nasal polypectomies, RFA cervical/back, R/L inguinal hernia repairs, rt orchiectomy; diaphragmatic hernia repair 03/2019 section of sigmoid colon removed. pt had a back simulator put in his left hip for back pain at [facility]. rt hand 01/15 Past Anesthesia/Blood Transfusion Reactions: No Reported Reaction Past Psychological History: Depression Smoking Status: Former smoker Past Alcohol Use History: None Reported Past Drug Use History: None Reported - Past Family History Father Family Medical History: Cancer Additional Family Medical History / Comment(s): Father of stomach ca at the age of 65 yrs. Mother Family Medical History: No Reported History Additional Family Medical History / Comment(s): Mother of "old age". She was 83 yrs old Brother(s) Family Medical History: Diabetes Mellitus Additional Family Medical History / Comment(s): brain tumor Sister(s) Family Medical History: Diabetes Mellitus Additional Family Medical History / Comment(s): breast ca (sisters) General Exam Limitations: no limitations General appearance: alert, in no apparent distress Head exam: Present: atraumatic, normocephalic, normal inspection Eye exam: Present: normal appearance, PERRL, EOMI. Absent: scleral icterus, conjunctival injection, periorbital swelling ENT exam: Present: normal exam, normal oropharynx, mucous membranes moist. Absent: mucous membranes dry Neck exam: Present: normal inspection. Absent: tenderness, meningismus, lymphadenopathy Respiratory exam: Present: normal lung sounds bilaterally. Absent: respiratory distress, wheezes, rales, rhonchi, stridor Cardiovascular Exam: Present: regular rate, normal rhythm, normal heart sounds. Absent: systolic murmur, diastolic murmur, rubs, gallop, clicks GI/Abdominal exam: Present: soft, normal bowel sounds. Absent: distended, tend erness, guarding, rebound, rigid Extremities exam: Present: normal inspection, full ROM, normal capillary refill. Absent: tenderness, pedal edema, joint swelling, calf tenderness Back exam: Present: normal inspection Neurological exam: Present: alert, oriented X3, CN II-XII intact Psychiatric exam: Present: normal affect, normal mood Skin exam: Present: warm, dry, intact, normal color. Absent: rash Course Vital Signs 03/24/21 03/24/21 03/24/21 00:52 01:36 01:41 Temperature 98.1 F Pulse Rate 85 85 84 Respiratory 20 19 19 Rate Blood Pressure 140/95 143/93 121/81 O2 Sat by Pulse 93 L 93 L 93 L Oximetry 03/24/21 03/24/21 03/24/21 01:44 02:36 03:28 Temperature Pulse Rate 82 76 79 Respiratory 19 20 19 Rate Blood Pressure 112/73 122/83 126/89 O2 Sat by Pulse 93 L 97 96 Oximetry 03/24/21 04:30 Temperature Pulse Rate 80 Respiratory 17 Rate Blood Pressure 99/77 O2 Sat by Pulse Oximetry - Reevaluation(s) Reevaluation #1: 03/24/21 01:50 Medical record is reviewed Patient had partial relief with nitroglycerin 2. We'll start a nitroglycerin infusion and monitor. Reevaluation #2: 03/24/21 02:38 Medical record is reviewed Symptoms are improved here in the emergency department Patient is informed of results and questions answered Patient in no distress Patient still has a discomfort sensation chest but states the pain is much improved. Currently awaiting troponin. 03/24/21 02:38 Medical Decision Making - Medical Decision Making Patient presents to the emergency with concerning left anterior chest pain which radiates to left arm. Started at rest. EKG was essentially nondiagnostic due to baseline artifact. Was done at 1:17 AM with ED attending physician. Patient had a hint of ST elevation in V2 which was less than 1 box. Artifact seen in multiple leads. Right axis deviation. Normal intervals. Incomplete right bundle-branch block. Right ventricular hypertrophy. No evidence of definitive ST elevation in contiguous leads. No evidence of reciprocal changes. Study was read by the ED attending physician. Several attempts are made to obtain a diagnostic EKG. Patient's nerve stimulator was turned off. Case was discussed with the lot technician by the ED attending physician, Dr. Haynes. Pt. assessed by the attending. Dairy Farmworker, Dr. Pena fevers medical management in this patient. Patient will be admitted under the ACS protocol. Treated for an STEMI. Heparin bolus and drip ordered. Metoprolol 25 mg by mouth ordered, atorvastatin 20 mg by mouth ordered. - Lab Data Result diagrams: 03/24/21 01:03/24/21 01:29 Lab Results 03/24/21 03/24/21 03/24/21 Range/Units 01: 01: 01:29 WBC 7.7 (3.8-10.6) k/uL RBC 4.79 (4.30-5.90) m/uL Hgb 15.4 (13.0-17.5) gm/dL Hct 46.8 (39.0-53.0) % MCV 97.8 (80.0-100.0) fL MCH 32.2 (25.0-35.0) pg MCHC 32.9 (31.0-37.0) g/dL RDW 14.3 (11.5-15.5) % Plt Count 278 (150-450) k/uL MPV 8.8 Neutrophils % (Manual) 60 % Lymphocytes % (Manual) 28 % Monocytes % (Manual) 8 % Eosinophils % (Manual) 4 % Neutrophils # (Manual) 4.62 (1.3-7.7) k/uL Lymphocytes # (Manual) 2.16 (1.0-4.8) k/uL Monocytes # (Manual) 0.62 (0-1.0) k/uL Eosinophils # (Manual) 0.31 (0-0.7) k/uL Nucleated RBCs 0 (0-0) /100 WBC Manual Slide Review Performed PT 10.0 (9.0-12.0) sec INR 0.9 (<1.2) APTT 27.7 (22.0-30.0) sec Sodium 131 L (137-145) mmol/L Potassium 4.3 (3.5-5.1) mmol/L Chloride 97 L (98-107) mmol/L Carbon Dioxide 25 (22-30) mmol/L Anion Gap 9 mmol/L BUN 13 (9-20) mg/dL Creatinine 0.78 (0.66-1.25) mg/dL Est GFR (CKD-EPI)AfAm >90 (>60 ml/min/1.73 sqM) Est GFR (CKD-EPI)NonAf 89 (>60 ml/min/1.73 sqM) Glucose 111 H (74-99) mg/dL Calcium 9.5 (8.4-10.2) mg/dL Magnesium 1.7 (1.6-2.3) mg/dL Total Bilirubin 0.5 (0.2-1.3) mg/dL AST 29 (17-59) U/L ALT 20 (4-49) U/L Alkaline Phosphatase 114 (38-126) U/L Troponin I (0.000-0.034) ng/mL NT-Pro-B Natriuret Pep pg/mL Total Protein 6.9 (6.3-8.2) g/dL Albumin 4.0 (3.5-5.0) g/dL 03/24/21 03/24/21 Range/Units : 01:29 WBC (3.8-10.6) k/uL RBC (4.30-5.90) m/uL Hgb (13.0-17.5) gm/dL Hct (39.0-53.0) % MCV (80.0-100.0) fL MCH (25.0-35.0) pg MCHC (31.0-37.0) g/dL RDW (11.5-15.5) % Plt Count (150-450) k/uL MPV Neutrophils % (Manual) % Lymphocytes % (Manual) % Monocytes % (Manual) % Eosinophils % (Manual) % Neutrophils # (Manual) (1.3-7.7) k/uL Lymphocytes # (Manual) (1.0-4.8) k/uL Monocytes # (Manual) (0-1.0) k/uL Eosinophils # (Manual) (0-0.7) k/uL Nucleated RBCs (0-0) /100 WBC Manual Slide Review PT (9.0-12.0) sec INR (<1.2) APTT (22.0-30.0) sec Sodium (137-145) mmol/L Potassium (3.5-5.1) mmol/L Chloride (98-107) mmol/L Carbon Dioxide (22-30) mmol/L Anion Gap mmol/L BUN (9-20) mg/dL Creatinine (0.66-1.25) mg/dL Est GFR (CKD-EPI)AfAm (>60 ml/min/1.73 sqM) Est GFR (CKD-EPI)NonAf (>60 ml/min/1.73 sqM) Glucose (74-99) mg/dL Calcium (8.4-10.2) mg/dL Magnesium (1.6-2.3) mg/dL Total Bilirubin (0.2-1.3) mg/dL AST (17-59) U/L ALT (4-49) U/L Alkaline Phosphatase (38-126) U/L Troponin I 0.198 H* (0.000-0.034) ng/mL NT-Pro-B Natriuret Pep 122 pg/mL Total Protein (6.3-8.2) g/dL Albumin (3.5-5.0) g/dL - Radiology Data Radiology results: report reviewed, image reviewed Critical Care Time Critical Care Time: Yes (Acute coronary syndrome, consultation with the lot technician) Total Critical Care Time: 40 Critical Care Time: 40. Multiple re-evaluations, response to treatment, interventions, interpreting diagnostics. Disposition Clinical Impression: NSTEMI (non-ST elevated myocardial infarction), ACS (acute coronary syndrome) Disposition: ADMITTED IP TO THIS [facility] Condition: Stable Time of Disposition: 02:59
[2021-03-24] MEDS ORDERED: NITROGLYCERIN-D5W PMX 50 MG in DEXTROSE/WATER 1 250ML.BAG IV ONE (01:50)
[2021-03-24 02:03] LABS: ALT 20 U/L (4-49); AST 29 U/L (17-59); African American GFR (CKD) >90 (>60 ml/min/1.73 sqM); Alkaline Phosphatase 114 U/L (38-126); Anion Gap 9 mmol/L; Blood Urea Nitrogen 13 mg/dL (9-20); Calcium 9.5 mg/dL (8.4-10.2); Carbon Dioxide 25 mmol/L (22-30); Chloride 97 mmol/L (98-107); Glucose 111 mg/dL (74-99); Magnesium 1.7 mg/dL (1.6-2.3); Non-African American GFR(CKD) 89 (>60 ml/min/1.73 sqM); Potassium 4.3 mmol/L (3.5-5.1); Sodium 131 mmol/L (137-145); Total Bilirubin 0.5 mg/dL (0.2-1.3); Total Protein 6.9 g/dL (6.3-8.2)
--- NOTE | 2021-03-24 02:04 | XR ---
EXAMINATION TYPE: XR chest 1V portable DATE OF EXAM: 03/24/2021 COMPARISON: 01/13/2021 HISTORY: Chest pain TECHNIQUE: FINDINGS: There is some elevation of the right diaphragm. There is some coarsening of interstitial de nsity in the lung bases. There is atelectasis right lung base. Heart size is normal. There is no hear t failure. There is neural stimulator over the thoracic spine. IMPRESSION: There is some chronic atelectasis right lung base. Pulmonary fibrotic changes are increas ed compared to old exam. No obvious heart failure.
[2021-03-24 02:10] LABS: INR 0.9 (<1.2); Partial Thromboplastin Time 27.7 sec (22.0-30.0)
[2021-03-24 02:17] LABS: HCT 46.8 % (39.0-53.0); HGB 15.4 gm/dL (13.0-17.5); MCH 32.2 pg (25.0-35.0); MCHC 32.9 g/dL (31.0-37.0); MCV 97.8 fL (80.0-100.0); Mean Platelet Volume 8.8; Platelet Count 278 k/uL (150-450); RBC 4.79 m/uL (4.30-5.90); RDW 14.3 % (11.5-15.5); WBC 7.7 k/uL (3.8-10.6)
[2021-03-24] MEDS ORDERED: ACETAMINOPHEN TAB 500 MG TAB PO STA (02:42)
[2021-03-24] MEDS ORDERED: NITROGLYCERIN SL TABS 0.4 MG TAB SUBLINGUAL PRN (02:52)
[2021-03-24] MEDS ORDERED: HEPARIN SODIUM 1,000 UN/ML (10ML VL) IV ONE (02:52)
[2021-03-24] MEDS ORDERED: ATORVASTATIN 20 MG TAB PO STA (02:57)
[2021-03-24] MEDS ORDERED: METOPROLOL SUCCINATE (ER) 25 MG TAB.ER.24H PO STA (02:57)
[2021-03-24 02:59] LABS: Eosinophils # (M) 0.31 k/uL (0-0.7); Lymphocytes # (M) 2.16 k/uL (1.0-4.8); Monocytes # (M) 0.62 k/uL (0-1.0); Neutrophils # (M) 4.62 k/uL (1.3-7.7); Neutrophils % (M) 60 %; Nucleated Red Blood Cells 0 /100 WBC (0-0); Total Cells Counted 100
[2021-03-24] MEDS ORDERED: HEPARIN SOD,PORK IN 0.45% NACL 25,000 UNIT in 0.45% NACL 1 250ML.BAG IV SCH (03:00)
[2021-03-24] MEDS: ACETAMINOPHEN TAB 325 MG TAB PO PRN (03:13)
[2021-03-24] MEDS ORDERED: HYDROmorphone 0.5 MG/0.5 ML SYRINGE IVP STA ×2 (03:13→15:48)
[2021-03-24] MEDS ORDERED: ALPRAZolam 0.5 MG TAB PO PRN (07:19)
[2021-03-24] MEDS ORDERED: SODIUM CHLORIDE 0.9% 1,000 ML in EMPTY BAG 1 BAG IV ONE (07:19)
[2021-03-24] MEDS ORDERED: ALPRAZolam 0.25 MG TAB PO PRN (07:19)
[2021-03-24] MEDS ORDERED: ATORVASTATIN 80 MG TAB PO STA (07:19)
[2021-03-24] MEDS ORDERED: LIDOCAINE 1% INJ 10MG/ML (20 ML MDV) ONE (08:14)
[2021-03-24] MEDS ORDERED: HEPARIN SODIUM 1,000 UN/ML (10ML VL) ONE (08:14)
[2021-03-24] MEDS ORDERED: VERAPAMIL 2.5 MG/ML 2 ML AMP ONE (08:14)
[2021-03-24] MEDS ORDERED: fentaNYL (PF) 50 MCG/ML 2 ML AMP ONE (08:15)
--- NOTE | 2021-03-24 08:21 | P.CRDCN ---
History of Present Illness Consult date: 03/24/21 History of present illness: This is a 75-year-old gentleman with history of previous smoking and also COPD and hypertensive coronary vascular disease who started having shortness of breath and this she with chest discomfort around midnight last night. Patient's symptoms did not improve within a oxygen. His blood pressure was high. The pain was radiating to the left arm. Patient finally came to the emergency room. He ER physician notified me around 2:30 at 3:00. The patient has chest pain that has improved. An EKG showed some right bundle-branch block pattern without acute definite VT changes. Review of the EKG showed some ST elevation in V1 and V2 and the initial EKG which seemed improved somewhat on the EKG done later on. However, with the treatment with nitroglycerin, aspirin and Plavix, his symptoms have improved with improvement of the EKG and patient was treated with a beta matheus and nitrates and remained relatively stable with mild chest discomfort. In view of ongoing symptoms and abnormal troponin values suggestive of non- STEMI, patient is advised to have a cardiac catheterization for definitive diagnosis. Patient was explained the risks and benefits of the procedure, which she fully understood and accepted. Review of Systems As per the chart Past Medical History Past Medical History: Cancer, COPD, GERD/Reflux, GI Bleed Additional Past Medical History / Comment(s): Other hx: COPD, history of right hemidiaphragmatic paralysis post plication, Bladder cancer with BCG and tumor removal, R testicular cancer with orchiectomy/radiation, chronic back and cervical pain, frequent debilitating migraines, bilateral sciatica, upper GI bleeds, hiatal hernia, gastritis, Diego's palsy, 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 Last Myocardial Infarction Date:: 05/25/14 History of Any Multi-Drug Resistant Organisms: None Reported Past Surgical History: Adenoidectomy, Appendectomy, Back Surgery, Cholecystectomy, Heart Catheterization, Hernia Repair, Orthopedic Surgery, Tonsillectomy Additional Past Surgical History / Comment(s): 08/03/15 EGD colonoscopy,l cardiac cath, several back sx including laminectomy, spinous process removed T11 and T12/cage and arturo, bilateral arthroscopic knee surgeries, left thumb surgeries with rt one having titanium joint, L rotator cuff repair, several nasal polypectomies, RFA cervical/back, R/L inguinal hernia repairs, rt orchiectomy; diaphragmatic hernia repair 03/2019 section of sigmoid colon removed. pt had a back simulator put in his left hip for back pain at [facility]. rt hand 01/15 Past Anesthesia/Blood Transfusion Reactions: No Reported Reaction Past Psychological History: Depression Additional Psychological History / Comment(s): Patient resides with his spouse of 55 yrs. He has chronic pain and debilitating migraines. He has a cane and walker which he uses prn. He has falls. He drives some but spouse does most of the driving. Spouse works afternoons at [employer] in patient check in/previous MRI. Smoking Status: Former smoker Past Alcohol Use History: None Reported Additional Past Alcohol Use History / Comment(s): Pt started smoking in 1959 and quit cigarettes in 2003, smoked 1 1/2ppd Past Drug Use History: None Reported - Past Family History Father Family Medical History: Cancer Additional Family Medical History / Comment(s): Father of stomach ca at the age of 65 yrs. Mother Family Medical History: No Reported History Additional Family Medical History / Comment(s): Mother of "old age". She was 83 yrs old Brother(s) Family Medical History: Diabetes Mellitus Additional Family Medical History / Comment(s): brain tumor Sister(s) Family Medical History: Diabetes Mellitus Additional Family Medical History / Comment(s): breast ca (sisters) Medications and Allergies Home Medications Medication Instructions Recorded Confirmed Type Fluticasone/Salmeterol [Advair 1 puff INHALATION RT-BID 01/01/21 03/24/21 History 500-50 Diskus] Ipratropium-Albuterol Nebulize 3 ml INHALATION RT-BID 01/01/21 03/24/21 History [Duoneb 0.5 mg-3 mg/3 ml Soln] Acetaminophen Tab [Tylenol Tab] 1,000 mg PO Q6H PRN 03/24/21 03/24/21 History Albuterol Nebulized [Ventolin 2.5 mg INHALATION RT-BID 03/24/21 03/24/21 History Nebulized] Eqvisti-Uhfl-Mdli [id number] 1 tab PO Q6H PRN 03/24/21 03/24/21 History [Excedrin] Omeprazole 40 mg PO DAILY 03/24/21 03/24/21 History Allergies Allergy/AdvReac Type Severity Reaction Status Date / Time celecoxib [From Celebrex] Allergy Unknown Verified 03/24/21 07:14 Iodinated Contrast Media Allergy Anaphylaxis Verified 03/24/21 07:14 [Iodinated Contrast Media - IV Dye] iodine Allergy Anaphylaxis Verified 03/24/21 07:14 Penicillins Allergy Anaphylaxis Verified 03/24/21 07:14 Sulfa (Sulfonamide Allergy Anaphylaxis Verified 03/24/21 07:14 Antibiotics) tramadol Allergy Swelling Verified 03/24/21 07:14 fentanyl AdvReac Severe SEVERE Verified 03/24/21 07:14 MIGRAINES adhesive AdvReac tears skin Verified 03/24/21 07:14 banana AdvReac HEADACHE Verified 03/24/21 07:14 chocolate flavor AdvReac TRIGGERS Verified 03/24/21 07:14 MIGRAINE duloxetine [From Cymbalta] AdvReac Headaches Verified 03/24/21 07:14 gabapentin AdvReac Confusion Verified 03/24/21 07:14 Opioids - Morphine Analogues AdvReac Migraine Verified 03/24/21 07:14 Opioids-Meperidine and AdvReac Migraine Verified 03/24/21 07:14 Related peanut AdvReac TRIGGERS Verified 03/24/21 07:14 MIGRAINES tree nut [Nut] AdvReac HEADACHE Verified 03/24/21 07:14 yellow dye AdvReac HEADACHE Verified 03/24/21 07:14 Physical Exam Vitals: Vital Signs Temp Pulse Pulse Resp BP BP Pulse Ox 03/24/21 05:04 83 18 03/24/21 05:00 97.4 F L 83 18 121/67 97 03/24/21 04:30 80 17 99/77 03/24/21 03:28 79 19 126/89 96 03/24/21 02:36 76 20 122/83 97 03/24/21 01:44 82 19 112/73 93 L 03/24/21 01:41 84 19 121/81 93 L 03/24/21 01:36 85 19 143/93 93 L 03/24/21 00:52 98.1 F 85 20 140/95 93 L Intake and Output 03/23/21 03/24/21 03/24/21 22:59 06:59 14:59 Other: Voiding Method Toilet # Voids 1 Weight 65.771 kg GENERAL EXAM: Patient is alert and oriented and doesn't appear to be in any acute distress HEENT: Normocephalic. Normal reaction of pupils, equal size, normal range of extraocular motion. No erythema or exudates in the throat. NECK: No masses, no nuchal rigidity. CHEST: No chest wall deformity. LUNGS: Diminished air exchange HEART: S1 and S2 normal with no audible mumurs or gallops. Regular rhythm, femorals equal on both sides.. ABDOMEN: No hepatosplenomegaly, normal bowel sounds, no guarding or rigidity. SKIN: No rashes CENTRAL NERVOUS SYSTEM: No focal deficits. EXTREMITIES: No cyanosis, clubbing or edema. Results 03/24/21 01:03/24/21 01: Cardiac Enzymes 03/24/21 03/24/21 03/24/21 Range/Units 01:25 03: 05:14 AST 29 (17-59) U/L Troponin I 0.198 H* 3.420 H* (0.000-0.034) ng/mL Coagulation 03/24/21 Range/Units 01: PT 10.0 (9.0-12.0) sec APTT 27.7 (22.0-30.0) sec CBC 03/24/21 Range/Units 01:29 WBC 7.7 (3.8-10.6) k/uL RBC 4.79 (4.30-5.90) m/uL Hgb 15.4 (13.0-17.5) gm/dL Hct 46.8 (39.0-53.0) % Plt Count 278 (150-450) k/uL Comprehensive Metabolic Panel 03/24/21 Range/Units 01:29 Sodium 131 L (137-145) mmol/L Potassium 4.3 (3.5-5.1) mmol/L Chloride 97 L (98-107) mmol/L Carbon Dioxide 25 (22-30) mmol/L BUN 13 (9-20) mg/dL Creatinine 0.78 (0.66-1.25) mg/dL Glucose 111 H (74-99) mg/dL Calcium 9.5 (8.4-10.2) mg/dL AST 29 (17-59) U/L ALT 20 (4-49) U/L Alkaline Phosphatase 114 (38-126) U/L Total Protein 6.9 (6.3-8.2) g/dL Albumin 4.0 (3.5-5.0) g/dL Current Medications Generic Name Dose Route Start Last Admin Trade Name Gorgeq PRN Reason Stop Dose Admin Acetaminophen 650 mg 03/24/21 02:52 03/24/21 03:13 Acetaminophen Tab 325 Mg Tab PO 650 mg Q4HR PRN Administration Pain Alprazolam 0.25 mg 03/24/21 07:19 Alprazolam 0.25 Mg Tab PO Q6HR PRN Mild Anxiety Alprazolam 0.5 mg 03/24/21 07:19 Alprazolam 0.5 Mg Tab PO Q6HR PRN Moderate Anxiety Aspirin 325 mg 03/25/21 09:00 Aspirin 325 Mg Tab PO DAILY [facility] Clopidogrel Bisulfate 75 mg 03/24/21 09:00 Clopidogrel 75 Mg Tab PO DAILY [facility] Famotidine 20 mg 03/24/21 09:00 Famotidine 20 Mg/2 Ml Vial IV Q12HR [facility] Nitroglycerin/Dextrose 50 mg/ 250 mls @ 1.5 mls/hr 03/24/21 01:50 03/24/21 02:26 IV Solution IV 03/25/21 01:49 5 mcg/min .Q24H ONE 1.5 mls/hr Administration Protocol 5 MCG/MIN Heparin Sodium/Sodium Chloride 250 mls @ 7.893 mls/hr 03/24/21 03:00 03/24/21 03:20 25,000 unit/ Sodium Chloride IV 12 units/kg/hr .Q24H AMEE 7.893 mls/hr Administration Protocol 12 UNITS/KG/HR Heparin Sodium (Porcine) 10, 1,001 mls @ 999 mls/hr 03/25/21 07:00 000 unit/ Sodium Chloride IRRIGATION 03/25/21 23:00 ONCE PRN INTRA-OP Heparin Sodium (Porcine) 2,500 250.5 mls @ 250 mls/hr 03/25/21 07:00 unit/ Sodium Chloride IRRIGATION 03/25/21 23:00 ONCE PRN INTRA-OP Sodium Chloride 1,000 ml/ IV 1,000 mls @ 197.313 mls/hr 03/24/21 07:19 Solution IV 03/24/21 12:23 .Q5H5M ONE 3 ML/KG/HR Nitroglycerin 0.4 mg 03/24/21 02:52 Nitroglycerin Sl Tabs 0.4 Mg Tab SUBLINGUAL Q5M PRN Chest Pain Intake and Output 03/23/21 03/24/21 03/24/21 22:59 06:59 14:59 Other: Voiding Method Toilet # Voids 1 Weight 65.771 kg 03/24/21 01:29 03/24/21 01:29 EKG Interpretations (text) Initial EKG showed ST elevations from V1 to V3 with J-point elevation which improved on the later EKGs with treatment Assessment and Plan (1) ACS (acute coronary syndrome) Current Visit: Yes Status: Acute Code(s): I24.9 - ACUTE ISCHEMIC HEART DISEASE, UNSPECIFIED SNOMED Code(s): 402488976 (2) NSTEMI (non-ST elevated myocardial infarction) Current Visit: Yes Status: Acute Code(s): I21.4 - NON-ST ELEVATION (NSTEMI) MYOCARDIAL INFARCTION SNOMED Code(s): 58128116 (3) Adenoma of ascending colon Current Visit: No Status: Acute Code(s): D12.2 - BENIGN NEOPLASM OF ASCENDING COLON SNOMED Code(s): 427118240 (4) COPD (chronic obstructive pulmonary disease) Current Visit: No Status: Acute Code(s): J44.9 - CHRONIC OBSTRUCTIVE PULMONARY DISEASE, UNSPECIFIED SNOMED Code(s): 57479433 Plan: We'll continue current medical therapy including aspirin, Plavix, Lipitor and IV nitroglycerin. We will proceed with cardiac catheterization. Echocardiogram. Further recommended will depend upon the findings. Time with Patient: Less than 30
[2021-03-24] MEDS: CLOPIDOGREL 75 MG TAB PO SCH (08:24)
[2021-03-24] MEDS ORDERED: IV FLUID CONTINUATION 900 ML IV ONE (08:34)
[2021-03-24] MEDS ORDERED: MIDAZOLAM 2 MG/2 ML VIAL IV ONE (08:35)
[2021-03-24] MEDS ORDERED: fentaNYL (PF) 50 MCG/ML 2 ML AMP IV ONE (08:35)
[2021-03-24] MEDS ORDERED: LIDOCAINE 1% INJ 10MG/ML (20 ML MDV) SQ ONE (08:36)
[2021-03-24] MEDS ORDERED: FLUMAZENIL 0.1 MG/ML 5 ML VIAL IVP ONE (08:39)
[2021-03-24] MEDS ORDERED: LIDOCAINE 1% INJ 10MG/ML (10 ML MDV) SQ ONE (08:48)
[2021-03-24] MEDS ORDERED: FAMOTIDINE 20 MG/2 ML VIAL IV SCH (09:00)
[2021-03-24] MEDS ORDERED: IOPAMIDOL-370 50ML BTL INJ ONE (09:00)
[2021-03-24] MEDS ORDERED: IOPAMIDOL-370 125ML BTL INJ ONE (09:00)
[2021-03-24] MEDS ORDERED: RX INFO: IV CONTRAST WAS GIVEN 1 EACH MISC MISCELLANE PRN (09:13)
--- NOTE | 2021-03-24 09:24 | P.CARDCATH ---
Date of Procedure: 03/24/21 Preoperative Diagnosis: Non-STEMI Postoperative Diagnosis: Broken heart syndrome Procedure(s) Performed: Left heart catheterization with left ventriculography Description of Procedure: HISTORY: This is a 75-year-old gentleman with history of COPD who was admitted through the emergency room with complaints of chest pain, EKG changes and positive cardiac enzymes suggestive of a non-STEMI. Patient is advised to have a cardiac catheterization for definitive diagnosis CONSENT:I have discussed the risks, benefits and alternative therapies for the above-mentioned procedure and for both sedation/analgesia as well as necessary blood product administration, if indicated, as they pertain to this patient. The patient has indicated understanding and acceptance of the risks and procedures discussed. PROCEDURE: Patient was brought to the lab in a fasting state. Patient was given some IV sedation. The right wrist is infiltrated and attempt were made to enter the right radial artery. The pulse was weak and the wire could not be advanced. Subsequently the procedure was done from the right groin approach The right groin is infiltrated with lidocaine and right femoral artery was entered using Seldinger technique. A 6-Bolivian catheter was left in place and selective coronary arteriography and left ventriculography was performed. Patient tolerated the procedure well. Femoral angiogram was performed and Angio-Seal w as applied for hemostasis. No immediate complications were noted and patient was transferred to [facility] in a stable condition Conscious Sedation: Versed 1mg Fentanyl 50 g Duration 30minutes HEMODYNAMICS: Aortic pressure is about 100/60. Left ankle end-diastolic pressure is about 18-20. No gradient across the aortic valve SELECTIVE CORONARY ARTERIOGRAPHY: LEFT MAIN: Long and free of any occlusive disease THE LEFT ANTERIOR DESCENDING CORONARY ARTERY: . This is a fair caliber vessel giving rise to small septal and diagonal branches. The flow in the LAD is sluggish but no critical lesions were noted in the LAD THE LEFT CIRCUMFLEX AND IS CORONARY ARTERY: . This is a moderate caliber vessel giving rise to good-sized OM branch. Free of occlusive disease THE RIGHT CORONARY ARTERY: . This is a dominant vessel and good in size, giving rise to PDA and PLV. There is mild ectasia in the RCA in the proximal portion but free of any significant occlusive disease LEFT VENTRICULOGRAPHY: This revealed mildly enlarged left ventricle with a severe hypokinesis of the whole anteroapical and inferoapical segment consistent with broken heart syndrome FINAL IMPRESSION: #1. Broken heart syndrome. #2. Minimal coronary artery disease. 3. Elevated end-diastolic pressure PLAN: . Continue treatment with beta blockers, nitrates, OLIVIA inhibitor R and baby aspirin. We'll also add small dose of Aldactone PROGNOSIS: Guarded
--- NOTE | 2021-03-24 09:57 | P.HPIM ---
History of Present Illness This is a pleasant 75 years old male with past medical history of COPD, GERD/Reflux,COPD, history of right hemidiaphragmatic paralysis post plication, Bladder cancer with BCG and tumor removal, R testicular cancer with orchiectomy/radiation, chronic back and cervical pain, frequent debilitating migraines, bilateral sciatica, upper GI bleeds, hiatal hernia, Diego's palsy, 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 Presents because of left-sided chest pain and shortness of breath which started of one-day duration, his main concern was chest pain really on the left side 10/10 in severity, associated with some difficulty catching his breath No specific GI or urinary symptoms. No fever He quit smoking about 10 years ago, no alcohol, He is on 2 L/m of oxygen at night for his history of COPD. His rn supplemental is Dr. prema Ceja looks stable. Labs including CBC, INR, BMP and liver enzymes were unremarkable except for mild hyponatremia at 131 Visit troponin 0.1 at 3.4 Coronavirus is not detected EKG showing normal sinus rhythm at 78 BPM, left anterior fascicular block, rule out anteroseptal infarct, QTC 481. The other EKG showing normal sinus rhythm at 79,, to rule out anteroseptal infarct, QTC 458 Chest x-ray: No acute process. the emergency room patient was given aspirin 324 mg and heparin drip, as well as Plavix Review of Systems CONSTITUTIONAL: No fever, no malaise, no fatigue. HEENT: No recent visual problems or hearing problems. Denied any sore throat. CARDIOVASCULAR: No orthopnea, PND, no palpitations, no syncope. PULMONARY: No shortness of breath, no cough, no hemoptysis. GASTROINTESTINAL: No diarrhea, no nausea, no vomiting, no abdominal pain. Normoactive bowel sounds. NEUROLOGICAL: No headaches, no weakness, no numbness. HEMATOLOGICAL: Denies any bleeding or petechiae. GENITOURINARY: Denies any burning micturition, frequency, or urgency. MUSCULOSKELETAL/RHEUMATOLOGICAL: Denies any joint pain, swelling, or any muscle pain. ENDOCRINE: Denies any polyuria or polydipsia. ROS unobtainable: due to endotracheal tube Past Medical History Past Medical History: Cancer, COPD, GERD/Reflux, GI Bleed Additional Past Medical History / Comment(s): Other hx: COPD, history of right hemidiaphragmatic paralysis post plication, Bladder cancer with BCG and tumor removal, R testicular cancer with orchiectomy/radiation, chronic back and cervical pain, frequent debilitating migraines, bilateral sciatica, upper GI bleeds, hiatal hernia, gastritis, Diego's palsy, 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 Last Myocardial Infarction Date:: 05/25/14 History of Any Multi-Drug Resistant Organisms: None Reported Past Surgical History: Adenoidectomy, Appendectomy, Back Surgery, Cholecystectomy, Heart Catheterization, Hernia Repair, Orthopedic Surgery, To nsillectomy Additional Past Surgical History / Comment(s): 08/03/15 EGD colonoscopy,l cardiac cath, several back sx including laminectomy, spinous process removed T11 and T12/cage and arturo, bilateral arthroscopic knee surgeries, left thumb surgeries with rt one having titanium joint, L rotator cuff repair, several nasal polypectomies, RFA cervical/back, R/L inguinal hernia repairs, rt orchiectomy; diaphragmatic hernia repair 03/2019 section of sigmoid colon removed. pt had a back simulator put in his left hip for back pain at [facility]. rt hand 01/15 Past Anesthesia/Blood Transfusion Reactions: No Reported Reaction Past Psychological History: Depression Additional Psychological History / Comment(s): Patient resides with his spouse of 55 yrs. He has chronic pain and debilitating migraines. He has a cane and walker which he uses prn. He has falls. He drives some but spouse does most of the driving. Spouse works afternoons at [employer] in patient check in/previous MRI. Smoking Status: Former smoker Past Alcohol Use History: None Reported Additional Past Alcohol Use History / Comment(s): Pt started smoking in 1959 and quit cigarettes in 2003, smoked 1 1/2ppd Past Drug Use History: None Reported - Past Family History Father Family Medical History: Cancer Additional Family Medical History / Comment(s): Father of stomach ca at the age of 65 yrs. Mother Family Medical History: No Reported History Additional Family Medical History / Comment(s): Mother of "old age". She was 83 yrs old Brother(s) Family Medical History: Diabetes Mellitus Additional Family Medical History / Comment(s): brain tumor Sister(s) Family Medical History: Diabetes Mellitus Additional Family Medical History / Comment(s): breast ca (sisters) Medications and Allergies Home Medications Medication Instructions Recorded Confirmed Type Fluticasone/Salmeterol [Advair 1 puff INHALATION RT-BID 01/01/21 03/24/21 History 500-50 Diskus] Ipratropium-Albuterol Nebulize 3 ml INHALATION RT-BID 01/01/21 03/24/21 History [Duoneb 0.5 mg-3 mg/3 ml Soln] Acetaminophen Tab [Tylenol Tab] 1,000 mg PO Q6H PRN 03/24/21 03/24/21 History Albuterol Nebulized [Ventolin 2.5 mg INHALATION RT-BID 03/24/21 03/24/21 History Nebulized] [id number] 1 tab PO Q6H PRN 03/24/21 03/24/21 History [Excedrin] Omeprazole 40 mg PO DAILY 03/24/21 03/24/21 History Allergies Allergy/AdvReac Type Severity Reaction Status Date / Time celecoxib [From Celebrex] Allergy Unknown Verified 03/24/21 07:14 Iodinated Contrast Media Allergy Anaphylaxis Verified 03/24/21 07:14 [Iodinated Contrast Media - IV Dye] iodine Allergy Anaphylaxis Verified 03/24/21 07:14 Penicillins Allergy Anaphylaxis Verified 03/24/21 07:14 Sulfa (Sulfonamide Allergy Anaphylaxis Verified 03/24/21 07:14 Antibiotics) tramadol Allergy Swelling Verified 03/24/21 07:14 fentanyl AdvReac Severe SEVERE Verified 03/24/21 07:14 MIGRAINES adhesive AdvReac tears skin Verified 03/24/21 07:14 banana AdvReac HEADACHE Verified 03/24/21 07:14 chocolate flavor AdvReac TRIGGERS Verified 03/24/21 07:14 MIGRAINE duloxetine [From Cymbalta] AdvReac Headaches Verified 03/24/21 07:14 gabapentin AdvReac Confusion Verified 03/24/21 07:14 Opioids - Morphine Analogues AdvReac Migraine Verified 03/24/21 07:14 Opioids-Meperidine and AdvReac Migraine Verified 03/24/21 07:14 Related peanut AdvReac TRIGGERS Verified 03/24/21 07:14 MIGRAINES tree nut [Nut] AdvReac HEADACHE Verified 03/24/21 07:14 yellow dye AdvReac HEADACHE Verified 03/24/21 07:14 Physical Exam Vitals: Vital Signs Temp Pulse Pulse Resp BP BP Pulse Ox 03/24/21 05:04 83 18 03/24/21 05:00 97.4 F L 83 18 121/67 97 03/24/21 04:30 80 17 99/77 03/24/21 03:28 79 19 126/89 96 03/24/21 02:36 76 20 122/83 97 03/24/21 01:44 82 19 112/73 93 L 03/24/21 01:41 84 19 121/81 93 L 03/24/21 01:36 85 19 143/93 93 L 03/24/21 00:52 98.1 F 85 20 140/95 93 L Intake and Output 03/23/21 03/24/21 03/24/21 22:59 06:59 14:59 Other: Voiding Method Toilet # Voids 1 Weight 65.771 kg GENERAL: The patient is alert and oriented x3, not in any acute distress. Well developed, well nourished. HEENT: Pupils are round and equally reacting to light. EOMI. No scleral icterus. No conjunctival pallor. Normocephalic, atraumatic. No pharyngeal erythema. No thyromegaly. CARDIOVASCULAR: S1 and S2 present. No murmurs, rubs, or gallops. PULMONARY: Chest is clear to auscultation, no wheezing or crackles. ABDOMEN: Soft, nontender, nondistended, normoactive bowel sounds. No palpable organomegaly. MUSCULOSKELETAL: No joint swelling or deformity. EXTREMITIES: No cyanosis, clubbing, or pedal edema. NEUROLOGICAL: Gross neurological examination did not reveal any focal deficits. SKIN: No rashes. No petechiae Results CBC & Chem 7: 03/24/21 01:29 03/24/21 01:29 Labs: Abnormal Lab Results - Last 24 Hours (Table) 03/24/21 03/24/21 03/24/21 Range/Units 01: 05:14 Sodium 131 L (137-145) mmol/L Chloride 97 L (98-107) mmol/L Glucose 111 H (74-99) mg/dL Troponin I 0.198 H* 3.420 H* (0.000-0.034) ng/mL Thrombosis Risk Factor Assmnt - Choose All That Apply Each Risk Factor Represents 3 Points: Age 75 years or older Thrombosis Risk Factor Assessment Total Risk Factor Score: 3 Thrombosis Risk Factor Assessment Level: Moderate Risk Assessment and Plan Assessment: Elevated troponin with Chest pain and dyspnea. 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 he was provided with Lipitor and metoprolol 1 Plan: This is a pleasant 75 years old male who presents because of chest pain continue with aspirin, Plavix and heparin drip Serial troponin and echocardiogram Cardiology consult Patient is going for cardiac cath this morning Labs and medication were reviewed.. Continue same treatment. Continue with symptomatic treatment. Resume home medication. Monitor lytes and vitals. DVT and GI prophylaxis. Further recommendations depends on the clinical course of the patient DVT prophylaxisheparin GI Prophylaxis: Pepcid Prognosis is guarded
[2021-03-24] MEDS: SODIUM CHLORIDE 0.9% 1,000 ML IV SCH (12:08)
[2021-03-24] MEDS: HEPARIN SODIUM,PORCINE/PF 5,000 UNIT/0.5 ML SYRINGE SQ SCH ×2 (17:39→23:14)
[2021-03-24] MEDS: FAMOTIDINE 20 MG TAB PO SCH (20:01)
[2021-03-24] MEDS: ALBUTEROL NEBULIZED 2.5 MG/3 ML INHALATION SCH (21:13)
[2021-03-24] MEDS: SYMBICORT 160-4.5 MCG INHALER INHALATION SCH (21:14)
[2021-03-24] MEDS: IPRATROPIUM-ALBUTEROL 3 ML NEB INHALATION SCH (21:14)
[2021-03-25] MEDS: SODIUM CHLORIDE 0.9% 1,000 ML IV SCH ×2 (00:35→18:11)
[2021-03-25] MEDS ORDERED: HEPARIN SODIUM,PORCINE 10,000 UNIT in SODIUM CHLORIDE 0.9% 1,000 ML IRRIGATION PRN (07:00)
[2021-03-25] MEDS ORDERED: HEPARIN SODIUM,PORCINE 2,500 UNIT in SODIUM CHLORIDE 0.9% 250 ML IRRIGATION PRN (07:00)
[2021-03-25 08:47] LABS: Basophils % (A) 0 %; Eosinophils # (A) 0.2 k/uL (0-0.7); Eosinophils % (A) 2 %; HCT 41.7 % (39.0-53.0); HGB 13.6 gm/dL (13.0-17.5); Lymphocytes # (A) 0.8 k/uL (1.0-4.8); Lymphocytes % (A) 10 %; MCH 31.8 pg (25.0-35.0); MCHC 32.6 g/dL (31.0-37.0); MCV 97.6 fL (80.0-100.0); Mean Platelet Volume 8.4; Monocytes # (A) 0.4 k/uL (0-1.0); Monocytes % (A) 5 %; Neutrophils # (A) 6.3 k/uL (1.3-7.7); Neutrophils % (A) 80 %; Platelet Count 204 k/uL (150-450); RBC 4.27 m/uL (4.30-5.90); RDW 14.1 % (11.5-15.5); WBC 7.8 k/uL (3.8-10.6)
[2021-03-25 08:50] LABS: Chloride 102 mmol/L (98-107)
[2021-03-25 08:51] LABS: African American GFR (CKD) >90 (>60 ml/min/1.73 sqM); Anion Gap 5 mmol/L; Blood Urea Nitrogen 9 mg/dL (9-20); Calcium 8.7 mg/dL (8.4-10.2); Carbon Dioxide 24 mmol/L (22-30); Glucose 92 mg/dL (74-99); Non-African American GFR(CKD) >90 (>60 ml/min/1.73 sqM); Potassium 4.3 mmol/L (3.5-5.1); Sodium 131 mmol/L (137-145)
[2021-03-25] MEDS ORDERED: ASPIRIN 325 MG TAB PO SCH (09:00)
[2021-03-25] MEDS: CLOPIDOGREL 75 MG TAB PO SCH (09:32)
[2021-03-25] MEDS: ASPIRIN 81 MG PO SCH (09:32)
[2021-03-25] MEDS: SPIRONOLACTONE 25 MG TAB PO SCH (09:32)
[2021-03-25] MEDS: FAMOTIDINE 20 MG TAB PO SCH ×2 (09:32→21:23)
[2021-03-25] MEDS: HEPARIN SODIUM,PORCINE/PF 5,000 UNIT/0.5 ML SYRINGE SQ SCH ×3 (09:32→23:26)
[2021-03-25] MEDS: IPRATROPIUM-ALBUTEROL 3 ML NEB INHALATION SCH ×2 (09:41→19:37)
[2021-03-25] MEDS: SYMBICORT 160-4.5 MCG INHALER INHALATION SCH ×2 (09:41→19:37)
[2021-03-25] MEDS: ALBUTEROL NEBULIZED 2.5 MG/3 ML INHALATION SCH ×2 (09:41→19:36)
--- NOTE | 2021-03-25 09:48 | P.PN ---
Subjective Progress Note Date: 03/25/21 Hospital course: Patient is a 75-year-old gentleman with history of previous smoking and also COPD and hypertensive coronary vascular disease who started having shortness of breath and this she with chest discomfort around midnight last night. Patient's symptoms did not improve within a oxygen. His blood pressure was high. The pain was radiating to the left arm. Patient finally came to the emergency room. He ER physician notified me around 2:30 at 3:00. The patient has chest pain that has improved. An EKG showed some right bundle-branch block pattern without acute definite CA changes. Review of the EKG showed some ST elevation in V1 and V2 and the initial EKG which seemed improved somewhat on the EKG done later on. However, with the treatment with nitroglycerin, aspirin and Plavix, his symptoms have improved with improvement of the EKG and patient was treated with a beta matheus and nitrates and remained relatively stable with mild chest discomfort. In view of ongoing symptoms and abnormal troponin values suggestive of non- STEMI. Patient underwent cardiac catheterization on 03/24/21 revealing mildly enlarged left ventricle with severe hypokinesis of the whole anteroapical and inferioapical segment consistent with broken heart syndrome. Plan to continue t reatment with beta blockers, nitrates, Ben inhibitors, Aldactone, and baby aspirin. 03/25/21: Patient seen and fully evaluated at the bedside this morning. He was resting in bed and appeared comfortable. Patient reports feeling better than he did yesterday but states he continues to have mild chest discomfort across right and left anterior chest. He denies having any palpitations, dizziness, shortness of breath, or any other complaints at this time. Morning labs unremarkable with the exception of mild hyponatremia with sodium of 131. Lipid profile unremarkable. Physical exam: Vital signs reviewed and stable. General: Nontoxic, no distress and appears stated age. Derm: Skin warm and dry, normal coloration for ethnicity. Head: Atraumatic, normocephalic and symmetric. Eyes: EOMs intact, no lid lag, and anicteric sclera Mouth: no lip lesions, mucus membranes moist Cardiovascular: regular rate and rhythm with normal S1S2, no murmur, positive posterior tibial pulses bilaterally, and cap refill < 2 seconds. Lungs: Respirations even, regular, and unlabored on room air. Barrel chest. Lungs slightly diminished with no rhonchi, no rales, no wheezing, and no accessory muscle usage. Abdominal: soft, nontender to palpation, no guarding, no appreciable organomegaly Ext: ROM intact. No gross muscle atrophy, no edema, no contractures Neuro: Speech clear, face symmetrical and CN II-XII grossly intact with no noted focal neuro deficits Psych: Alert and oriented to person, place, time, and situation. Appropriate and pleasant affect. Assessment and Plan of Care NSTEMI, cardiac cath consistent with broken heart syndrome Hypertension Hyperlipidemia Adenoma of ascending colon COPD (chronic obstructive pulmonary disease Plan: Patient underwent cardiac catheterization on 03/24/21 revealing mildly enlarged left ventricle with severe hypokinesis of the whole anteroapical and inferioapical segment consistent with broken heart syndrome. Plan to continue treatment with beta blockers, nitrates, Ben inhibitors, Aldactone, and baby aspirin and we maximize heart failure treatment by beginning metoprolol succinate 25 mg daily Thank you for allowing us to participate in the care of this pleasant patient. Do not hesitate to contact us with questions. Objective - Vital Signs Vital signs: Vital Signs Temp 97.6 F 03/25/21 04:00 Pulse 84 03/25/21 04:00 Resp 18 03/25/21 04:00 BP 116/68 03/25/21 04:00 Pulse Ox 96 03/25/21 04:00 Intake & Output 03/24/21 03/25/21 03/25/21 18:59 06:59 18:59 Intake Total 540 Output Total 200 350 Balance 340 -350 Intake: IV 300 Oral 240 Output: Urine 200 350 Other: # Voids 1 1 - Labs CBC & Chem 7: 03/25/21 07:39 03/25/21 07:39 Labs: Abnormal Lab Results - Last 24 Hours (Table) 03/24/21 03/24/21 03/25/21 Range/Units 10:13 10:13 07:39 RBC 4.27 L (4.30-5.90) m/uL Lymphocytes # 0.8 L (1.0-4.8) k/uL APTT 30.8 H (22.0-30.0) sec Sodium (137-145) mmol/L Troponin I 2.020 H* (0.000-0.034) ng/mL 03/25/21 Range/Units 07:39 RBC (4.30-5.90) m/uL Lymphocytes # (1.0-4.8) k/uL APTT (22.0-30.0) sec Sodium 131 L (137-145) mmol/L Troponin I (0.000-0.034) ng/mL
[2021-03-25] MEDS ORDERED: HYDROcodone/APAP 5-325MG 1 EACH TAB PO STA (12:31)
[2021-03-25 13:04] LABS: Chol/HDL Ratio 2.24 Ratio; LDL Cholesterol,Calculated 41.1 mg/dL (0.0-131.0); VLDL Calculation 10.64 mg/dL (5.00-40.00)
--- NOTE | 2021-03-25 14:00 | ECHOF ---
Referral Reason:Elevated troponin. MEASUREMENTS -------- HEIGHT: 175.3 cm WEIGHT: 65.8 kg BP: 121/67 RVIDd: 2.4 cm (< 3.3) IVSd: 1.0 cm (0.6 - 1.1) LVIDd: 4.9 cm (3.9 - 5.3) LVPWd: 1.0 cm (0.6 - 1.1) IVSs: 1.4 cm LVIDs: 3.2 cm LVPWs: 1.6 cm LAESV Index (A-L): 26.74 ml/m Ao Diam: 3.2 cm (2.0 - 3.7) AV Cusp: 2.2 cm (1.5 - 2.6) MV E Donny: 0.62 m/s MV DecT: 213 ms MV A Donny: 0.37 m/s MV E/A Ratio: 1.67 FINDINGS -------- Sinus rhythm. This was a technically difficult study with suboptimal views. The left ventricular size is normal. Left ventricular wall thickness is normal. Overall left vent ricular systolic function is moderately impaired with, an EF between 35 - 40 %. Mid anterior LV wal l motion is hypokinetic. Mid inferior LV wall motion is hypokinetic. Apical anterior LV wall mo tion is hypokinetic. Apical lateral LV wall motion is hypokinetic. Apical inferior LV wall shani on is hypokinetic. Apical septum LV wall motion is hypokinetic. The right ventricle is normal in size. Normal LA size by volume 22+/-6 ml/m2. The right atrium is normal in size. Trace to mild aortic regurgitation. The mitral valve is normal. The tricuspid valve appears structurally normal. Unable to estimate RVSP due to inadequate TR jet s pectral doppler profile. The pulmonic valve is normal. The aortic root size is normal. Normal inferior vena cava with normal inspiratory collapse consistent with estimated right atrial pre ssure of 5 mmHg. There is no pericardial effusion. CONCLUSIONS -------- 1. The left ventricular size is normal. 2. Left ventricular wall thickness is normal. 3. Overall left ventricular systolic function is moderately impaired with, an EF between 35 - 40 %. 4. Mid anterior LV wall motion is hypokinetic. 5. Mid inferior LV wall motion is hypokinetic. 6. Apical anterior LV wall motion is hypokinetic. 7. Apical lateral LV wall motion is hypokinetic. 8. Apical inferior LV wall motion is hypokinetic. 9. Apical septum LV wall motion is hypokinetic. 10. Trace to mild aortic regurgitation. 11. There is no pericardial effusion. WATER USE INSPECTOR: Elena Patel RDCS
--- NOTE | 2021-03-25 15:13 | P.PN ---
Subjective This is a pleasant 75 years old male with past medical history of COPD, GERD/Reflux,COPD, history of right hemidiaphragmatic paralysis post plication, Bladder cancer with BCG and tumor removal, R testicular cancer with orchiectomy/radiation, chronic back and cervical pain, frequent debilitating migraines, bilateral sciatica, upper GI bleeds, hiatal hernia, Diego's palsy, history of sigmoid stricture related to recurrent diverticulitis and the p atient has undergone sigmoid colectomy. Presents because of left-sided chest pain and shortness of breath which started of one-day duration, his main concern was chest pain really on the left side 10/ 10 in severity, associated with some difficulty catching his breath No specific GI or urinary symptoms. No fever He quit smoking about 10 years ago, no alcohol, He is on 2 L/m of oxygen at night for his history of COPD. His trial paralegal is Dr. prema Ceja looks stable. Labs including CBC, INR, BMP and liver enzymes were unremarkable except for mild hyponatremia at 131 Visit troponin 0.1 at 3.4 Coronavirus is not detected EKG showing normal sinus rhythm at 78 BPM, left anterior fascicular block, rule out anteroseptal infarct, QTC 481. The other EKG showing normal sinus rhythm at 79,, to rule out anteroseptal infarct, QTC 458 Chest x-ray: No acute process. the emergency room patient was given aspirin 324 mg and heparin drip, as well as Plavix 03/25/2021 Patient is status post cardiac cath yesterday which showing no significant stenosis with patent coronary arteries, but has severe hypokinesia of the whole anterior apical and inferior apical areas of the brain consistent with broken heart syndrome. Today he was significant exertional dyspnea even he had to lie down when coming back from the restroom. He is saturating 91 on room air. He is been followed closely by banking pin adjuster who started him on antihypertensive and cardiac medications including metoprolol 25 mg, lisinopril 2.5 mg, Aldactone 12.5 mg and aspirin 81 mg. Cardiology team recommended to keep monitoring patient in the hospital for now. Objective - Vital Signs Vital signs: Vital Signs Temp 98.2 F 03/25/21 08:00 Pulse 84 03/25/21 08:00 Resp 18 03/25/21 08:00 BP 97/63 03/25/21 08:00 Pulse Ox 92 L 03/25/21 08:00 Intake & Output 03/24/21 03/25/21 03/25/21 18:59 06:59 18:59 Intake Total 540 Output Total 200 350 Balance 340 -350 Intake: IV 300 Oral 240 Output: Urine 200 350 Other: # Voids 1 1 - Exam GENERAL: The patient is alert and oriented x3, not in any acute distress. Well developed, well nourished. HEENT: Pupils are round and equally reacting to light. EOMI. No scleral icterus. No conjunctival pallor. Normocephalic, atraumatic. No pharyngeal erythema. No thyromegaly. CARDIOVASCULAR: S1 and S2 present. No murmurs, rubs, or gallops. PULMONARY: Chest is clear to auscultation, no wheezing or crackles. Normal chest, mild restriction of air entry ABDOMEN: Soft, nontender, nondistended, normoactive bowel sounds. No palpable organomegaly. MUSCULOSKELETAL: No joint swelling or deformity. EXTREMITIES: No cyanosis, clubbing, or pedal edema. NEUROLOGICAL: Gross neurological examination did not reveal any focal deficits. SKIN: No rashes. no petechiae. 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 he was provided with Lipitor and metoprolol 1 Plan: This is a pleasant 75 years old male who presents because of chest pain continue with aspirin, Plavix Continue with metoprolol, lisinopril and Aldactone by banking pin adjuster Cardiology consult Labs and medication were reviewed.. Continue same treatment. Continue with symptomatic treatment. Resume home medication. Monitor lytes and vitals. DVT and GI prophylaxis. Further recommendations depends on the clinical course of the patient DVT prophylaxis: heparin GI Prophylaxis: Pepcid Prognosis is guarded
[2021-03-25] MEDS: ACETAMINOPHEN TAB 325 MG TAB PO PRN (21:23)
[2021-03-26] MEDS: SODIUM CHLORIDE 0.9% 1,000 ML IV SCH ×2 (02:31→05:36)
[2021-03-26] MEDS: ALBUTEROL NEBULIZED 2.5 MG/3 ML INHALATION SCH (07:35)
[2021-03-26] MEDS: IPRATROPIUM-ALBUTEROL 3 ML NEB INHALATION SCH (07:36)
[2021-03-26] MEDS: SYMBICORT 160-4.5 MCG INHALER INHALATION SCH (07:36)
[2021-03-26 07:47] VITALS: RESP 18; TEMP 98
[2021-03-26] MEDS ORDERED: METOPROLOL SUCCINATE (ER) 25 MG TAB.ER.24H PO SCH (09:00)
--- NOTE | 2021-03-26 09:23 | P.PN ---
Subjective Progress Note Date: 03/26/21 Hospital course: Patient is a 75-year-old gentleman with history of previous smoking and also COPD and hypertensive coronary vascular disease who started having shortness of breath and this she with chest discomfort around midnight last night. Patient's symptoms did not improve within a oxygen. His blood pressure was high. The pain was radiating to the left arm. Patient finally came to the emergency room. He ER physician notified me around 2:30 at 3:00. The patient has chest pain that has improved. An EKG showed some right bundle-branch block pattern without acute definite [place] changes. Review of the EKG showed some ST elevation in V1 and V2 and the initial EKG which seemed improved somewhat on the EKG done later on. However, with the treatment with nitroglycerin, aspirin and Plavix, his symptoms have improved with improvement of the EKG and patient was treated with a beta matheus and nitrates and remained relatively stable with mild chest discomfort. In view of ongoing symptoms and abnormal troponin values suggestive of non- STEMI. Patient underwent cardiac catheterization on 03/24/21 revealing mildly enlarged left ventricle with severe hypokinesis of the whole anteroapical and inferioapical segment consistent with broken heart syndrome. Plan to continue t reatment with beta blockers, nitrates, Ben inhibitors, Aldactone, and baby aspirin. 03/26/21 Patient seen and fully evaluated at the bedside this morning. He was resting in bed and appeared comfortable. Patient had no complaints this morning, reports feeling great and ready to go home. He denied any headache, lightheadedness, dizziness, chest pain, palpitations, or shortness of breath at this time. Vital signs stable with the exception of mildly elevated blood pressure of 137/84. Metoprolol increased to 50 mg daily and to continue to titrate to optimize maximum treatment for ischemic heart disease. Physical exam: Vital signs reviewed and stable. General: Nontoxic, no distress and appears stated age. Derm: Skin warm and dry, normal coloration for ethnicity. Head: Atraumatic, normocephalic and symmetric. Eyes: EOMs intact, no lid lag, and anicteric sclera Mouth: no lip lesions, mucus membranes moist Cardiovascular: regular rate and rhythm with normal S1S2, no murmur, positive posterior tibial pulses bilaterally, and cap refill < 2 seconds. Lungs: Respirations even, regular, and unlabored on room air. Barrel chest. Lungs slightly diminished with no rhonchi, no rales, no wheezing, and no accessory muscle usage. Abdominal: soft, nontender to palpation, no guarding, no appreciable organomegaly Ext: ROM intact. No gross muscle atrophy, no edema, no contractures Neuro: Speech clear, face symmetrical and CN II-XII grossly intact with no noted focal neuro deficits Psych: Alert and oriented to person, place, time, and situation. Appropriate and pleasant affect. Assessment and Plan of Care NSTEMI, cardiac cath consistent with broken heart syndrome Hypertension Hyperlipidemia Adenoma of ascending colon COPD (chronic obstructive pulmonary disease Plan: Patient underwent cardiac catheterization on 03/24/21 revealing mildly enlarged left ventricle with severe hypokinesis of the whole anteroapical and inferioapical segment consistent with broken heart syndrome. Plan to continue treatment with beta blockers, nitrates, Ben inhibitors, Aldactone, and baby aspirin and we maximize heart failure treatment. There are no further recommendations from cardiac standpoint, patient cleared for discharge recommending following up outpatient with glove pairer in 1 week. Thank you for allowing us to participate in the care of this pleasant patient. Do not hesitate to contact us with questions. Objective - Vital Signs Vital signs: Vital Signs Temp 98.0 F 03/26/21 07:46 Pulse 81 03/26/21 07:46 Resp 18 03/26/21 07:46 BP 137/84 03/26/21 07:46 Pulse Ox 95 03/26/21 07:46 Intake & Output 03/25/21 03/26/21 03/26/21 18:59 06:59 18:59 Intake Total 240 Balance 240 Intake: Oral 240 Other: # Voids 4 1 - Labs CBC & Chem 7: 03/25/21 07:39 03/25/21 07:39
[2021-03-26] MEDS: CLOPIDOGREL 75 MG TAB PO SCH (09:48)
[2021-03-26] MEDS: SPIRONOLACTONE 25 MG TAB PO SCH (09:48)
[2021-03-26] MEDS: ASPIRIN 81 MG PO SCH (09:48)
[2021-03-26] MEDS: HEPARIN SODIUM,PORCINE/PF 5,000 UNIT/0.5 ML SYRINGE SQ SCH (09:49)
[2021-03-26] MEDS: FAMOTIDINE 20 MG TAB PO SCH (09:49)
--- NOTE | 2021-03-26 12:42 | P.PN ---
Subjective This is a pleasant 75 years old male with past medical history of COPD, GERD/Reflux,COPD, history of right hemidiaphragmatic paralysis post plication, Bladder cancer with BCG and tumor removal, R testicular cancer with orchiectomy/radiation, chronic back and cervical pain, frequent debilitating migraines, bilateral sciatica, upper GI bleeds, hiatal hernia, Diego's palsy, history of sigmoid stricture related to recurrent diverticulitis and the p atient has undergone sigmoid colectomy. Presents because of left-sided chest pain and shortness of breath which started of one-day duration, his main concern was chest pain really on the left side 10/ 10 in severity, associated with some difficulty catching his breath No specific GI or urinary symptoms. No fever He quit smoking about 10 years ago, no alcohol, He is on 2 L/m of oxygen at night for his history of COPD. His vinyl installer is Dr. prema Ceja looks stable. Labs including CBC, INR, BMP and liver enzymes were unremarkable except for mild hyponatremia at 131 Visit troponin 0.1 at 3.4 Coronavirus is not detected EKG showing normal sinus rhythm at 78 BPM, left anterior fascicular block, rule out anteroseptal infarct, QTC 481. The other EKG showing normal sinus rhythm at 79,, to rule out anteroseptal infarct, QTC 458 Chest x-ray: No acute process. the emergency room patient was given aspirin 324 mg and heparin drip, as well as Plavix 03/25/2021 Patient is status post cardiac cath yesterday which showing no significant stenosis with patent coronary arteries, but has severe hypokinesia of the whole anterior apical and inferior apical areas of the brain consistent with broken heart syndrome. Today he was significant exertional dyspnea even he had to lie down when coming back from the restroom. He is saturating 91 on room air. He is been followed closely by retail and promotions coordinator who started him on antihypertensive and cardiac medications including metoprolol 25 mg, lisinopril 2.5 mg, Aldactone 12.5 mg and aspirin 81 mg. Cardiology team recommended to keep monitoring patient in the hospital for now. 03/26/2021 Is doing much better today, no chest pain or dyspnea. No exertional dyspnea when he going to the restroom. No other complaints. He is hemodynamically stable. Cardiology team on the case and increase his metoprolol to 50 mg daily and continue with rest of his cardiac medication We will keep monitoring today Objective - Vital Signs Vital signs: Vital Signs Temp 98.0 F 03/26/21 07:46 Pulse 81 03/26/21 07:46 Resp 18 03/26/21 07:46 BP 137/84 03/26/21 07:46 Pulse Ox 95 03/26/21 07:46 Intake & Output 03/25/21 03/26/21 03/26/21 18:59 06:59 18:59 Intake Total 240 Balance 240 Intake: Oral 240 Other: # Voids 4 1 - Exam GENERAL: The patient is alert and oriented x3, not in any acute distress. Well d eveloped, well nourished. HEENT: Pupils are round and equally reacting to light. EOMI. No scleral icterus. No conjunctival pallor. Normocephalic, atraumatic. No pharyngeal erythema. No thyromegaly. CARDIOVASCULAR: S1 and S2 present. No murmurs, rubs, or gallops. PULMONARY: Chest is clear to auscultation, no wheezing or crackles. Normal chest, mild restriction of air entry ABDOMEN: Soft, nontender, nondistended, normoactive bowel sounds. No palpable organomegaly. MUSCULOSKELETAL: No joint swelling or deformity. EXTREMITIES: No cyanosis, clubbing, or pedal edema. NEUROLOGICAL: Gross neurological examination did not reveal any focal deficits. SKIN: No rashes. no petechiae. 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 he was provided with Lipitor and metoprolol 1 Plan: This is a pleasant 75 years old male who presents because of chest pain continue with aspirin, Plavix Continue with metoprolol which is increased to 50 mg, lisinopril and Aldactone by retail and promotions coordinator Cardiology consult Labs and medication were reviewed.. Continue same treatment. Continue with symptomatic treatment. Resume home medication. Monitor lytes and vitals. DVT and GI prophylaxis. Further recommendations depends on the clinical course of the patient DVT prophylaxis: heparin GI Prophylaxis: Pepcid Prognosis is guarded
[2021-03-26 14:40] VITALS: BP 129/78; PULSE 83
[2021-03-27] MEDS ORDERED: METOPROLOL SUCCINATE (ER) 50 MG TAB.ER.24H PO SCH (09:00)
== END 2021-03-26 16:57 | disposition home or self-care (01) | DRG 287 ==
LOC: EC 00:50 → 3SCARD 03:03
PROVIDERS: ADMIT Internal Medicine; ATTEND Internal Medicine
PROC: B2111ZZ Fluoroscopy of Multiple Coronary Arteries using Low Osmolar Contrast (ICD-10-PCS; 2021-03-24)
PROC: B2151ZZ Fluoroscopy of Left Heart using Low Osmolar Contrast (ICD-10-PCS; 2021-03-24)
PROC: 4A023N7 Measurement of Cardiac Sampling and Pressure, Left Heart, Percutaneous Approach (ICD-10-PCS; principal; 2021-03-24 07:30)
DX: I51.81 Takotsubo syndrome (principal); E87.1 Hypo-osmolality and hyponatremia; J96.11 Chronic respiratory failure with hypoxia; F32.A Depression, unspecified; G43.909 Migraine, unspecified, not intractable, without status migrainosus; G89.29 Other chronic pain; M54.9 Dorsalgia, unspecified; I25.2 Old myocardial infarction; I45.10 Unspecified right bundle-branch block; J44.9 Chronic obstructive pulmonary disease, unspecified; K44.9 Diaphragmatic hernia without obstruction or gangrene; Z20.822 Contact with and (suspected) exposure to COVID-19; I50.9 Heart failure, unspecified; Z80.0 Family history of malignant neoplasm of digestive organs; Z80.3 Family history of malignant neoplasm of breast; Z83.3 Family history of diabetes mellitus; Z85.51 Personal history of malignant neoplasm of bladder; Z85.47 Personal history of malignant neoplasm of testis; Z87.891 Personal history of nicotine dependence; I51.7 Cardiomegaly; Z88.0 Allergy status to penicillin; Z88.2 Allergy status to sulfonamides; Z88.8 Allergy status to other drugs, medicaments and biological substances; Z88.6 Allergy status to analgesic agent; Z91.041 Radiographic dye allergy status
CPT/HCPCS: 36415; 71045; 80048; 80053; 80061; 83735; 83880; 84484; 85025; 85610; 85730; 87635; 93005; 93306; 93458; 94640; 99291

== ENCOUNTER → 2021-04-24 | Outpatient (CLI) | payer MEDICARE ==
--- NOTE | 2021-04-24 11:51 | FL ---
EXAMINATION TYPE: FL barium swallow DATE OF EXAM: 04/24/2021 COMPARISON: None HISTORY: Dysphasia TECHNIQUE: Double air contrast technique was utilized to evaluate the esophagus. FINDINGS: Tertiary contractions are evident compatible with presbyesophagus. Esophagus is dilated to normal caliber. On the overhead radiograph a persistent cricopharyngeus muscle is evident. However, t his is not strongly apparent on the real-time observation of fluoroscopy. A small self reducing slidi ng type hiatal hernia may be present. There is incomplete stripping of the esophageal bolus in the ho rizontal drinking position with a secondary contraction evident. IMPRESSION: 1. Presbyesophagus.
== END | disposition home or self-care (01) ==
LOC: RADUSWWP 10:37
PROVIDERS: ATTEND Surgery Plastic and Reconstructive Surgery
DX: K22.89 Other specified disease of esophagus (principal)
CPT/HCPCS: 74220

== ENCOUNTER 2021-05-17 09:31 | Day surgery (SDC) | payer MEDICARE ==
[2021-05-16 10:25] VITALS: BMI 20.9
--- NOTE | 2021-05-17 09:08 | P.GSHP ---
History of Present Illness H&P Date: 05/17/21 CHIEF COMPLAINT: GERD HISTORY OF PRESENT ILLNESS: The patient is a 75-year-old male who presents reports gastroesophageal reflux disease. Upper endoscopy was offered for further evaluation and management. PAST MEDICAL HISTORY: Please see list. PAST SURGICAL HISTORY: Please see list. MEDICATIONS: Please see list. ALLERGIES: Please see list. SOCIAL HISTORY: No illicit drug use FAMILY HISTORY: No reports of Crohn disease or ulcerative colitis. REVIEW OF ORGAN SYSTEMS: CONSTITUTIONAL: No reports of fevers or chills. GI: Denies any blood in stools or constipation. PHYSICAL EXAM: VITAL SIGNS: Stable GENERAL: Well-developed and pleasant in no acute distress. HEENT: No scleral icterus. Extraocular movements grossly intact. Moist buccal mucosa. NECK: Supple without lymphadenopathy. CHEST: Unlabored respirations. Equal bilateral excursions. CARDIOVASCULAR: Regular rate and rhythm. Distal 2+ pulses. ABDOMEN: Soft, nondistended. MUSCULOSKELETAL: No clubbing, cyanosis, or edema. ASSESSMENT: 1. Gastroesophageal reflux disease PLAN: 1. Recommend proceeding with an upper endoscopy Past Medical History Past Medical History: Cancer, Chest Pain / Angina, COPD, GERD/Reflux, GI Bleed, Hearing Disorder / Deafness, Musculoskeletal Disorder, Prostate Disorder, Sleep Apnea/CPAP/BIPAP Additional Past Medical History / Comment(s): Hx Rt hemidiaphragmatic paralysis post plication, 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 O2 2L NC @ . "Broken heart syndrome." Last Myocardial Infarction Date:: 05/25/14 History of Any Multi-Drug Resistant Organisms: None Reported Past Surgical History: Adenoidectomy, Appendectomy, Back Surgery, Bowel Resection, Cholecystectomy, Heart Catheterization, Hernia Repair, Orthopedic Surgery, Tonsillectomy Additional Past Surgical History / Comment(s): 08/03/15 EGD/colonoscopy, cardiac cath x2 last 03/24/21, several back sx including laminectomy, spinous process removed T11 and T12/cage/arturo, bilat arthroscopic knee surgeries, bilat thumb surgeries w/ rt one a titanium joint, L rotator cuff repair, sev nasal polypectomies, RFA cervical/back, R/L inguinal hernia repairs, rt orchiectomy; diaphragmatic hernia repair 03/2019 section of sigmoid colon removed. back simulator put in left hip for back pain at [facility]. rt hand 01/15 Past Anesthesia/Blood Transfusion Reactions: No Reported Reaction Smoking Status: Former smoker - Past Family History Father Family Medical History: Cancer Additional Family Medical History / Comment(s): Father of stomach ca at the age of 65 yrs. Mother Family Medical History: No Reported History Additional Family Medical History / Comment(s): Mother of "old age". She was 83 yrs old Brother(s) Family Medical History: Diabetes Mellitus Additional Family Medical History / Comment(s): brain tumor Sister(s) Family Medical History: Cancer, Diabetes Mellitus Additional Family Medical History / Comment(s): breast ca (sisters) Medications and Allergies Home Medications Medication Instructions Recorded Confirmed Type Fluticasone/Salmeterol [Advair 1 puff INHALATION RT-BID 01/01/21 05/16/21 History 500-50 Diskus] Ipratropium-Albuterol Nebulize 3 ml INHALATION RT-BID 01/01/21 05/16/21 History [Duoneb 0.5 mg-3 mg/3 ml Soln] Acetaminophen Tab [Tylenol] 1,000 mg PO Q6H PRN 03/24/21 05/16/21 History Omeprazole 40 mg PO DAILY 03/24/21 05/16/21 History Aspirin 81 mg PO DAILY #30 03/26/21 05/16/21 Rx Glucosam/Chond/Hyalu/Cf Borate 2 tab PO DAILY 05/16/21 05/16/21 History [Move Free Joint Health Tablet] Psyllium Husk 100% [Metamucil 6 gm PO DAILY 05/16/21 05/16/21 History Packet] Sennosides [Senokot] 8.6 mg PO DAILY 05/16/21 05/16/21 History Allergies Allergy/AdvReac Type Severity Reaction Status Date / Time celecoxib [From Celebrex] Allergy Unknown Verified 05/16/21 09:52 Iodinated Contrast Media Allergy Anaphylaxis Verified 05/16/21 09:52 [Iodinated Contrast Media - IV Dye] iodine Allergy Anaphylaxis Verified 05/16/21 09:52 Penicillins Allergy Anaphylaxis Verified 05/16/21 09:52 Sulfa (Sulfonamide Allergy Anaphylaxis Verified 05/16/21 09:52 Antibiotics) tramadol Allergy Swelling Verified 05/16/21 09:52 fentanyl AdvReac Severe SEVERE Verified 05/16/21 09:52 MIGRAINES adhesive AdvReac tears skin Verified 05/16/21 09:52 banana AdvReac HEADACHE Verified 05/16/21 09:52 chocolate flavor AdvReac TRIGGERS Verified 05/16/21 09:52 MIGRAINE duloxetine [From Cymbalta] AdvReac Headaches Verified 05/16/21 09:52 gabapentin AdvReac Confusion Verified 05/16/21 09:52 Opioids - Morphine Analogues AdvReac Migraine Verified 05/16/21 09:52 Opioids-Meperidine and AdvReac Migraine Verified 05/16/21 09:52 Related peanut AdvReac TRIGGERS Verified 05/16/21 09:52 MIGRAINES tree nut [Nut] AdvReac HEADACHE Verified 05/16/21 09:52 yellow dye AdvReac HEADACHE Verified 05/16/21 09:52
[~2021-05-17 09:31] MED LIST changes: +LACTATED RINGERS 1,000 ML IV SCH; +LIDOCAINE 1% (10MG/ML) FOR IV START INTRADERMA PRN; -LIDOCAINE 1% 20 ML VIAL (10MG/ML) FOR IV START INTRADERMA PRN; -MIDAZOLAM 2 MG/2 ML VIAL IV PRN
[2021-05-17 10:32] VITALS: TEMP 98.1
[2021-05-17] MEDS ORDERED: LIDOCAINE 1% INJ 10MG/ML (20 ML MDV) ONE (11:31)
[2021-05-17] MEDS ORDERED: PROPOFOL 10 MG/ML 20 ML VIAL IV ONE (11:31)
[2021-05-17 11:55] VITALS: BP 119/73; PULSE 67; RESP 12
--- NOTE | 2021-05-17 12:01 | P.PCN ---
Date of Procedure: 05/17/21 Description of Procedure: PREOPERATIVE DIAGNOSIS: Dysphagia. Gastroesophageal reflux disease History of hiatal hernia repair POSTOPERATIVE DIAGNOSIS: Dysphagia. Gastroesophageal reflux disease History of hiatal hernia repair Esophageal dysmotility Esophageal stricture OPERATION: Esophagogastroduodenoscopy with rigid dilator over the guidewire 57 Fr. SURGEON: Bonnie Padilla MD ANESTHESIA: MAC. INDICATIONS: The patient is a 75-year-old male who presents with a history of dysphagia. Benefits and risks of the procedure were described. Informed consent was obtained. DESCRIPTION: The patient was brought into the endoscopy suite and laid in the left lateral decubitus position. After a timeout was confirmed, the procedure was initiated. An Olympus gastroscope was passed and the stomach was entered. Mild gastritis was identified. The scope was advanced to the duodenum which was unremarkable. Retroflexion the scope confirmed a Hill grade 2 lower esophageal valve. Next using an Nigerian rigid dilator, a guidewire was placed through the pediatric gastroscope. Next the scope was withdrawn. A 57-Ukrainian rigid Nigerian dilator was passed carefully along the posterior oropharynx to 45 cm and left in place for 2-3 minutes stretch. The dilator was withdrawn including the guidewire. The scope was reentered along the posterior oropharynx with no findings of full-thickness tear of the upper esophageal sphincter. No full-thickness injury was encountered. The GI tract was desufflated. The patient tolerated the procedure well. FINDINGS: Squamocolumnar junction unremarkable at 37 cm. Presbyesophagus with esophageal dysmotility Nigerian rigid dilator 57-Ukrainian completed. No recurrent hiatus hernia Hill grade 2 lower esophageal valve. LA grade B esophagitis. RECOMMENDATIONS: Upper endoscopy as needed Plan - Discharge Summary Discharge Rx Participant: Yes New Discharge Prescriptions: Continue Psyllium Husk 100% [Metamucil Packet] 6 gm PO DAILY Ipratropium-Albuterol Nebulize [Duoneb 0.5 mg-3 mg/3 ml Soln] 3 ml INHALATION RT-BID Fluticasone/Salmeterol [Advair 500-50 Diskus] 1 puff INHALATION RT-BID Acetaminophen Tab [Tylenol] 1,000 mg PO Q6H PRN PRN Reason: Pain Omeprazole 40 mg PO DAILY Aspirin 81 mg PO DAILY #30 Glucosam/Chond/Hyalu/Cf Borate [Move Free Joint Health Tablet] 2 tab PO DAILY Sennosides [Senokot] 8.6 mg PO DAILY Discharge Medication List Fluticasone/Salmeterol [Advair 500-50 Diskus] 1 puff INHALATION RT-BID 01/01/21 [History] Ipratropium-Albuterol Nebulize [Duoneb 0.5 mg-3 mg/3 ml Soln] 3 ml INHALATION RT-BID 01/01/21 [History] Acetaminophen Tab [Tylenol] 1,000 mg PO Q6H PRN 03/24/21 [History] Omeprazole 40 mg PO DAILY 03/24/21 [History] Aspirin 81 mg PO DAILY #30 03/26/21 [Rx] Glucosam/Chond/Hyalu/Cf Borate [Move Free Joint Health Tablet] 2 tab PO DAILY 05/16/21 [History] Psyllium Husk 100% [Metamucil Packet] 6 gm PO DAILY 05/16/21 [History] Sennosides [Senokot] 8.6 mg PO DAILY 05/16/21 [History] Follow up Appointment(s)/Referral(s): Bonnie Padilla MD [STAFF PHYSICIAN] - 05/23/21 Patient Instructions/Handouts: *Surgery [facility] - (Anesthesia) Endoscopy Discharge Instructions, Upper Endoscopy (DC), Esophageal Dilation (DC) Activity/Diet/Wound Care/Special Instructions: Recommend warm beverages prior to eating. Discharge Disposition: HOME SELF-CARE
== END 2021-05-17 12:37 | disposition home or self-care (01) ==
LOC: ORWHC2ENDO 09:31
PROVIDERS: ATTEND Surgery Plastic and Reconstructive Surgery
DX: K22.2 Esophageal obstruction (principal); K21.9 Gastro-esophageal reflux disease without esophagitis; K22.4 Dyskinesia of esophagus; J44.9 Chronic obstructive pulmonary disease, unspecified; H91.90 Unspecified hearing loss, unspecified ear; N42.9 Disorder of prostate, unspecified; J98.6 Disorders of diaphragm; G47.33 Obstructive sleep apnea (adult) (pediatric); Z87.891 Personal history of nicotine dependence; Z87.19 Personal history of other diseases of the digestive system; Z85.51 Personal history of malignant neoplasm of bladder; Z85.47 Personal history of malignant neoplasm of testis; Z92.3 Personal history of irradiation; G51.0 Bell's palsy; Z99.81 Dependence on supplemental oxygen; Z90.49 Acquired absence of other specified parts of digestive tract; Z96.691 Finger-joint replacement of right hand; Z98.890 Other specified postprocedural states; Z80.0 Family history of malignant neoplasm of digestive organs; Z83.3 Family history of diabetes mellitus; Z80.8 Family history of malignant neoplasm of other organs or systems; Z80.3 Family history of malignant neoplasm of breast; Z79.82 Long term (current) use of aspirin; Z79.51 Long term (current) use of inhaled steroids; Z79.899 Other long term (current) drug therapy; Z88.4 Allergy status to anesthetic agent; Z91.041 Radiographic dye allergy status; Z91.02 Food additives allergy status; Z88.5 Allergy status to narcotic agent; Z91.018 Allergy to other foods; Z88.0 Allergy status to penicillin; Z88.2 Allergy status to sulfonamides; Z91.048 Other nonmedicinal substance allergy status; Z91.09 Other allergy status, other than to drugs and biological substances
CPT/HCPCS: 43248; J2001; J2704; 43249

== ENCOUNTER → 2021-05-17 | Outpatient (CLI) | payer MEDICARE | END | disposition home or self-care (01) | LOC: LABWHC1 08:47 | PROVIDERS: ATTEND Family Medicine | DX: R97.20 Elevated prostate specific antigen [PSA] (principal) | CPT/HCPCS: 36415; G0103 ==

== ENCOUNTER → 2021-06-15 | Outpatient (CLI) | payer MEDICARE ==
--- NOTE | 2021-06-16 08:14 | CT ---
EXAMINATION TYPE: CT abdomen pelvis wo/w con DATE OF EXAM: 06/15/2021 COMPARISON: CT 07/22/2020, CT 09/02/2013 HISTORY: prostate ca, C 61 CT DLP: 927.6 mGycm Automated exposure control for dose reduction was used. TECHNIQUE: Helical acquisition of images was performed from the lung bases through the pelvis. CONTRAST: Performed with Oral Contrast and without and with IV Contrast, patient injected with 100 mL of Isovue 300. FINDINGS: There is a stimulator present along the thoracic spinal canal. There are metallic densities present at the level of the right hemidiaphragm over the liver level, the right hemidiaphragm remain s elevated LUNG BASES: No significant abnormality is appreciated. LIVER/GB: Patient is post cholecystectomy, no evident liver mass. PANCREAS: No significant abnormality is seen. SPLEEN: No significant abnormality is seen. ADRENALS: No significant abnormality is seen. KIDNEYS: No significant abnormality is seen. FREE AIR: No free air is visualized. RETROPERITONEAL ADENOPATHY: None visualized REPRODUCTIVE ORGANS: No significant abnormality is seen URINARY BLADDER: No significant abnormality is seen. PELVIC ADENOPATHY: None visualized. OSSEOUS STRUCTURES: Sclerotic density present at the level of the anterior iliac spine is a chronic finding. Postop changes are noted to the lumbar spine, there is some streak artifact. BOWEL: Colonic interposition noted anterior to the liver, postop changes are noted to the colon in t he left lower quadrant, diverticular changes in the sigmoid colon. OTHER: Generator is present in the left gluteal region. IMPRESSION: POSTOP CHANGES. SCLEROTIC DENSITY ANTERIOR ILIAC SPINE ON THE RIGHT IS CHRONIC, correlate for surgica l history. No acute abnormality.
== END | disposition home or self-care (01) ==
LOC: RADCTMAIN 15:59
PROVIDERS: ATTEND Urology
DX: C61 Malignant neoplasm of prostate (principal)
CPT/HCPCS: 82565; 84520; 74178; 36415; Q9967

== ENCOUNTER → 2021-06-21 | Outpatient (CLI) | payer MEDICARE ==
--- NOTE | 2021-06-21 10:47 | XR ---
EXAMINATION TYPE: XR chest 2V DATE OF EXAM: 06/21/2021 COMPARISON: Chest x-ray 03/24/2021 HISTORY: Chest pain, shortness of breath TECHNIQUE: Frontal and lateral views of the chest are obtained. FINDINGS: Elevation of right hemidiaphragm is again noted. There is a stimulator over the thoracic f inal canal region as on prior. No evident pneumothorax. Some improvement in airspace disease, aeratio n is present as compared to prior exam. Aorta is dense. Cardiac mediastinal silhouette is stable, pat ient is rotated. Bones are unchanged. Prominent lung volume could be indicative of underlying COPD. IMPRESSION: Some improvement in aeration. Persistent elevation of right hemidiaphragm noted.
== END | disposition home or self-care (01) ==
LOC: RADXRMAIN 09:58
PROVIDERS: ATTEND Family Medicine
DX: J98.6 Disorders of diaphragm (principal)
CPT/HCPCS: 71046

== ENCOUNTER → 2021-07-03 | Outpatient (CLI) | payer MEDICARE ==
--- NOTE | 2021-07-03 14:15 | NM ---
EXAMINATION TYPE: NM bone scan whole body DATE OF EXAM: 07/03/2021 COMPARISON: 09/09/2015, CT scan 06/15/2021 HISTORY: Prostate cancer Delayed whole-body scanning was performed following the injection of 21.1 mCi Tc 99m MDP. Images acq uired 3 hours post injection. FINDINGS: Abnormal uptake involving the rib cage is reduced intensity prior exam compatible with pearl te trauma. Mild intensity uptake throughout the thoracic spine and lower lumbosacral junction likely degenerative in stable from prior exam. Abnormal uptake involving the shoulders, feet and knees greater on the left suggestive of post arthri tic changes. There is high intensity nonspecific uptake involving the right iliac crest consistent with previous C T scan. IMPRESSION: 1. Stable intense uptake along the anterior iliac crest corresponds the area of sclerosis by CT scan. Although metastases cannot excluded the finding is stable dating back to 2016. 2. Abnormal uptake involving the vertebral column nonspecific mild intensity, stable 2015 and therefo re likely degenerative. 3. Abnormal uptake involving the rib cage is reduced intensity from prior exam compatible with remote trauma.
== END | disposition home or self-care (01) ==
LOC: RADNMMAIN 09:40
PROVIDERS: ATTEND Urology
DX: C61 Malignant neoplasm of prostate (principal); R93.89 Abnormal findings on diagnostic imaging of other specified body structures
CPT/HCPCS: 78306; A9503

== ENCOUNTER 2021-08-16 09:35 | Inpatient (IN) | payer MEDICARE ==
--- NOTE | 2021-08-16 10:18 | ED ---
General Adult HPI - General Chief complaint: Chest Pain Stated complaint: chest tightness Time Seen by Provider: 08/16/21 10:05 Source: patient, family, RN notes reviewed, old records reviewed Mode of arrival: wheelchair Limitations: no limitations - History of Present Illness Initial comments: This is a well-appearing 76-year-old male that presents to the emergency room with complaints of one day of generalized malaise, cough, mid-sternal chest pain and shortness of breath. He states he felt "gurgling" in his chest with a productive cough that is clear in color. He did test positive for coronavirus today with home test. He has been vaccinated and had booster. He states he did do a breathing treatment prior to coming which improved his symptoms. He states that the pain is tight in his chest worse with deep breaths. He does have a history of COPD and is on oxygen at home at night 2l. He states he is a patient of Dr. Medrano's -: days(s) (1) Location: chest Radiation: non-radiation Severity scale (1-10): 7 Consistency: constant Worsens with: other (cough) Associated Symptoms: cough, malaise, shortness of breath Treatments Prior to Arrival: none - Related Data Home Medications Medication Instructions Recorded Confirmed Omeprazole 40 mg PO DAILY 03/24/21 08/16/21 Albuterol Nebulized [Ventolin 2.5 mg INHALATION RT-Q4H PRN 08/16/21 08/16/21 Nebulized] Fluticasone Propion/Salmeterol 1 puff INHALATION RT-BID 08/16/21 08/16/21 [Wixela 500-50 Inhub] Multivitamins, Thera [Multivitamin 1 tab PO DAILY 08/16/21 08/16/21 (formulary)] Nitroglycerin Sl Tabs [Nitrostat] 0.4 mg SUBLINGUAL Q5M PRN 08/16/21 08/16/21 Allergies Allergy/AdvReac Type Severity Reaction Status Date / Time celecoxib [From Celebrex] Allergy Unknown Verified 08/16/21 11:45 Iodinated Contrast Media Allergy Anaphylaxis Verified 08/16/21 11:45 [Iodinated Contrast Media - IV Dye] iodine Allergy Anaphylaxis Verified 08/16/21 11:45 Penicillins Allergy Anaphylaxis Verified 08/16/21 11:45 Sulfa (Sulfonamide Allergy Anaphylaxis Verified 08/16/21 11:45 Antibiotics) tramadol Allergy Swelling Verified 08/16/21 11:45 fentanyl AdvReac Severe SEVERE Verified 08/16/21 11:45 MIGRAINES adhesive AdvReac tears skin Verified 08/16/21 11:45 banana AdvReac HEADACHE Verified 08/16/21 11:45 chocolate flavor AdvReac TRIGGERS Verified 08/16/21 11:45 MIGRAINE duloxetine [From Cymbalta] AdvReac Headaches Verified 08/16/21 11:45 gabapentin AdvReac Confusion Verified 08/16/21 11:45 Opioids - Morphine Analogues AdvReac Migraine Verified 08/16/21 11:45 Opioids-Meperidine and AdvReac Migraine Verified 08/16/21 11:45 Related peanut AdvReac TRIGGERS Verified 08/16/21 11:45 MIGRAINES tree nut [Nut] AdvReac HEADACHE Verified 08/16/21 11:45 yellow dye AdvReac HEADACHE Verified 08/16/21 11:45 Review of Systems ROS Statement: Those systems with pertinent positive or pertinent negative responses have been documented in the HPI. ROS Other: All systems not noted in ROS Statement are negative. 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 O2 2L NC @ HS. "Broken heart syndrome." Last Myocardial Infarction Date:: 05/25/14 History of Any Multi-Drug Resistant Organisms: None Reported Past Surgical History: Adenoidectomy, Appendectomy, Back Surgery, Bowel Resection, Cholecystectomy, Heart Catheterization, Hernia Repair, Orthopedic Surgery, Tonsillectomy Additional Past Surgical History / Comment(s): 08/03/15 EGD/colonoscopy, cardiac cath x2 last 03/24/21, several back sx including laminectomy, spinous process removed T11 and T12/cage/arturo, bilat arthroscopic knee surgeries, bilat thumb surgeries w/ rt one a titanium joint, L rotator cuff repair, sev nasal polypectomies, RFA cervical/back, R/L inguinal hernia repairs, rt orchiectomy; diaphragmatic hernia repair 03/2019 section of sigmoid colon removed. back simula tor put in left hip for back pain at [facility]. rt hand 01/15 Past Anesthesia/Blood Transfusion Reactions: No Reported Reaction Past Psychological History: Depression Smoking Status: Former smoker Past Alcohol Use History: None Reported Past Drug Use History: None Reported - Past Family History Father Family Medical History: Cancer Additional Family Medical History / Comment(s): Father of stomach ca at the age of 65 yrs. Mother Family Medical History: No Reported History Additional Family Medical History / Comment(s): Mother of "old age". She was 83 yrs old Brother(s) Family Medical History: Diabetes Mellitus Additional Family Medical History / Comment(s): brain tumor Sister(s) Family Medical History: Cancer, Diabetes Mellitus Additional Family Medical History / Comment(s): breast ca (sisters) General Exam Limitations: no limitations General appearance: alert, in no apparent distress Head exam: Present: atraumatic Eye exam: Absent: scleral icterus, conjunctival injection ENT exam: Present: normal exam, normal oropharynx, mucous membranes moist Neck exam: Present: normal inspection, full ROM. Absent: tenderness, meningismus, lymphadenopathy, thyromegaly Respiratory exam: Present: normal lung sounds bilaterally. Absent: respiratory distress, wheezes, rales, rhonchi, stridor, accessory muscle use Cardiovascular Exam: Present: regular rate, other GI/Abdominal exam: Present: soft. Absent: distended, tenderness, rigid Extremities exam: Present: normal inspection, normal capillary refill. Absent: tenderness, pedal edema Back exam: Present: normal inspection. Absent: tenderness, CVA tenderness (R), CVA tenderness (L) Neurological exam: Present: alert, oriented X3 Psychiatric exam: Present: normal affect, normal mood Skin exam: Present: warm, dry, normal color. Absent: cyanosis, diaphoretic, petechiae, pallor Course Vital Signs 08/16/21 08/16/21 08/16/21 09:40 13:04 14:23 Temperature 98.4 F Pulse Rate 70 75 67 Respiratory 22 18 18 Rate Blood Pressure 154/85 181/94 169/93 O2 Sat by Pulse 97 96 97 Oximetry EKG Findings - EKG Comments: EKG Findings:: Ventricular rate 68, CO interval 0.142, QRS 0.122, QTC 0.423 Medical Decision Making - Medical Decision Making Patient presents with pleuritic chest pain since this morning. He states he did take an at home covid test that was positive. He denies any fevers. Chest ray shows hyperinflation suggestive of COPD. Bilateral lower lobe atelectasis versus infiltrate. Patient's coronavirus test is negative here, however patient did test positive at home by home test. There is no evidence of leukocytosis. Electrolytes are unremarkable. Troponin is negative at 0.012. EKG shows no acute changes. Due to his COPD, cough, pleuritic chest pain and increased sputum production, patient was treated with azithromycin. Patient's blood pressure is elevated while in the ER however he states does not have a history of hypertension. He was given Norvasc. His states that one year ago he was treated for an acute myocardial infarction due to "broken heart syndrome". He had a normal echocardiogram and cardiac cath in February 2021. He will be placed in observation for chest pain, trending troponins and cardiac consult. Case discussed with Dr. Renteria. - Lab Data Result diagrams: 08/16/21 11:42 08/16/21 11:42 Lab Results 08/16/21 08/16/21 08/16/21 Range/Units 10:22 11:42 11:42 WBC 5.7 (3.8-10.6) k/uL RBC 4.36 (4.30-5.90) m/uL Hgb 14.5 (13.0-17.5) gm/dL Hct 42.8 (39.0-53.0) % MCV 98.2 (80.0-100.0) fL MCH 33.2 (25.0-35.0) pg MCHC 33.8 (31.0-37.0) g/dL RDW 13.9 (11.5-15.5) % Plt Count 196 (150-450) k/uL MPV 7.9 Neutrophils % 66 % Lymphocytes % 19 % Monocytes % 8 % Eosinophils % 2 % Basophils % 2 % Neutrophils # 3.8 (1.3-7.7) k/uL Lymphocytes # 1.1 (1.0-4.8) k/uL Monocytes # 0.4 (0-1.0) k/uL Eosinophils # 0.1 (0-0.7) k/uL Basophils # 0.1 (0-0.2) k/uL PT 9.5 (9.0-12.0) sec INR 0.9 (<1.2) APTT 25.5 (22.0-30.0) sec D-Dimer (<0.60) mg/L FEU Sodium (137-145) mmol/L Potassium (3.5-5.1) mmol/L Chloride (98-107) mmol/L Carbon Dioxide (22-30) mmol/L Anion Gap mmol/L BUN (9-20) mg/dL Creatinine (0.66-1.25) mg/dL Est GFR (CKD-EPI)AfAm (>60 ml/min/1.73 sqM) Est GFR (CKD-EPI)NonAf (>60 ml/min/1.73 sqM) Glucose (74-99) mg/dL Calcium (8.4-10.2) mg/dL Magnesium (1.6-2.3) mg/dL Total Bilirubin (0.2-1.3) mg/dL AST (17-59) U/L ALT (4-49) U/L Alkaline Phosphatase (38-126) U/L Lactate Dehydrogenase (313-618) U/L Troponin I (0.000-0.034) ng/mL C-Reactive Protein (<1.0) mg/dL Total Protein (6.3-8.2) g/dL Albumin (3.5-5.0) g/dL Coronavirus (PCR) Not Detected (Not Detectd) 08/16/21 08/16/21 08/16/21 Range/Units 11:42 11:42 11:42 WBC (3.8-10.6) k/uL RBC (4.30-5.90) m/uL Hgb (13.0-17.5) gm/dL Hct (39.0-53.0) % MCV (80.0-100.0) fL MCH (25.0-35.0) pg MCHC (31.0-37.0) g/dL RDW (11.5-15.5) % Plt Count (150-450) k/uL MPV Neutrophils % % Lymphocytes % % Monocytes % % Eosinophils % % Basophils % % Neutrophils # (1.3-7.7) k/uL Lymphocytes # (1.0-4.8) k/uL Monocytes # (0-1.0) k/uL Eosinophils # (0-0.7) k/uL Basophils # (0-0.2) k/uL PT (9.0-12.0) sec INR (<1.2) APTT (22.0-30.0) sec D-Dimer 0.57 (<0.60) mg/L FEU Sodium 133 L (137-145) mmol/L Potassium 5.2 H (3.5-5.1) mmol/L Chloride 100 (98-107) mmol/L Carbon Dioxide 30 (22-30) mmol/L Anion Gap 3 mmol/L BUN 19 (9-20) mg/dL Creatinine 0.74 (0.66-1.25) mg/dL Est GFR (CKD-EPI)AfAm >90 (>60 ml/min/1.73 sqM) Est GFR (CKD-EPI)NonAf 90 (>60 ml/min/1.73 sqM) Glucose 99 (74-99) mg/dL Calcium 9.1 (8.4-10.2) mg/dL Magnesium 1.9 (1.6-2.3) mg/dL Total Bilirubin 0.7 (0.2-1.3) mg/dL AST 27 (17-59) U/L ALT 21 (4-49) U/L Alkaline Phosphatase 77 (38-126) U/L Lactate Dehydrogenase (313-618) U/L Troponin I <0.012 (0.000-0.034) ng/mL C-Reactive Protein (<1.0) mg/dL Total Protein 6.5 (6.3-8.2) g/dL Albumin 4.0 (3.5-5.0) g/dL Coronavirus (PCR) (Not Detectd) 08/16/21 08/16/21 Range/Units 13:41 13:41 WBC (3.8-10.6) k/uL RBC (4.30-5.90) m/uL Hgb (13.0-17.5) gm/dL Hct (39.0-53.0) % MCV (80.0-100.0) fL MCH (25.0-35.0) pg MCHC (31.0-37.0) g/dL RDW (11.5-15.5) % Plt Count (150-450) k/uL MPV Neutrophils % % Lymphocytes % % Monocytes % % Eosinophils % % Basophils % % Neutrophils # (1.3-7.7) k/uL Lymphocytes # (1.0-4.8) k/uL Monocytes # (0-1.0) k/uL Eosinophils # (0-0.7) k/uL Basophils # (0-0.2) k/uL PT 9.6 (9.0-12.0) sec INR 0.9 (<1.2) APTT (22.0-30.0) sec D-Dimer (<0.60) mg/L FEU Sodium (137-145) mmol/L Potassium (3.5-5.1) mmol/L Chloride (98-107) mmol/L Carbon Dioxide (22-30) mmol/L Anion Gap mmol/L BUN (9-20) mg/dL Creatinine (0.66-1.25) mg/dL Est GFR (CKD-EPI)AfAm (>60 ml/min/1.73 sqM) Est GFR (CKD-EPI)NonAf (>60 ml/min/1.73 sqM) Glucose (74-99) mg/dL Calcium (8.4-10.2) mg/dL Magnesium (1.6-2.3) mg/dL Total Bilirubin (0.2-1.3) mg/dL AST (17-59) U/L ALT (4-49) U/L Alkaline Phosphatase (38-126) U/L Lactate Dehydrogenase 402 (313-618) U/L Troponin I (0.000-0.034) ng/mL C-Reactive Protein <0.5 (<1.0) mg/dL Total Protein (6.3-8.2) g/dL Albumin (3.5-5.0) g/dL Coronavirus (PCR) (Not Detectd) Disposition Clinical Impression: COPD exacerbation, Chest pain, Hypertension Disposition: ADMITTED IP TO THIS HOSP Decision Date: 08/16/21 Decision Time: 13:19
--- NOTE | 2021-08-16 11:28 | XR ---
EXAMINATION TYPE: XR chest 2V DATE OF EXAM: 08/16/2021 COMPARISON: 06/21/2021 TECHNIQUE: PA and lateral views submitted. HISTORY: Chest pain FINDINGS: Elevated hemidiaphragms with subsegmental consolidation bases. Size normal. No overt failure. No pneumothorax. Hyperinflation suggests COPD. Stimulator device overl javier the thoracic spine. IMPRESSION: 1. Bilateral lower lobe atelectasis or infiltrate. 2. COPD
[2021-08-16 12:23] LABS: INR 0.9 (<1.2); Partial Thromboplastin Time 25.5 sec (22.0-30.0); Prothrombin Time 9.5 sec (9.0-12.0)
[2021-08-16 12:26] LABS: ALT 21 U/L (4-49); AST 27 U/L (17-59); African American GFR (CKD) >90 (>60 ml/min/1.73 sqM); Alkaline Phosphatase 77 U/L (38-126); Anion Gap 3 mmol/L; Blood Urea Nitrogen 19 mg/dL (9-20); Calcium 9.1 mg/dL (8.4-10.2); Carbon Dioxide 30 mmol/L (22-30); Chloride 100 mmol/L (98-107); Glucose 99 mg/dL (74-99); Magnesium 1.9 mg/dL (1.6-2.3); Non-African American GFR(CKD) 90 (>60 ml/min/1.73 sqM); Potassium 5.2 mmol/L (3.5-5.1); Sodium 133 mmol/L (137-145); Total Bilirubin 0.7 mg/dL (0.2-1.3); Total Protein 6.5 g/dL (6.3-8.2)
[2021-08-16 12:48] LABS: Basophils # (A) 0.1 k/uL (0-0.2); Basophils % (A) 2 %; Eosinophils # (A) 0.1 k/uL (0-0.7); Eosinophils % (A) 2 %; HCT 42.8 % (39.0-53.0); HGB 14.5 gm/dL (13.0-17.5); Lymphocytes # (A) 1.1 k/uL (1.0-4.8); Lymphocytes % (A) 19 %; MCH 33.2 pg (25.0-35.0); MCHC 33.8 g/dL (31.0-37.0); MCV 98.2 fL (80.0-100.0); Mean Platelet Volume 7.9; Monocytes # (A) 0.4 k/uL (0-1.0); Monocytes % (A) 8 %; Neutrophils # (A) 3.8 k/uL (1.3-7.7); Neutrophils % (A) 66 %; Platelet Count 196 k/uL (150-450); RBC 4.36 m/uL (4.30-5.90); RDW 13.9 % (11.5-15.5); WBC 5.7 k/uL (3.8-10.6)
[2021-08-16] MEDS ORDERED: methylPREDNISolone SOD SUCCI 125 MG/2 ML VIAL IV STA (13:10)
[2021-08-16] MEDS ORDERED: ACETAMINOPHEN TAB 500 MG TAB PO STA (13:10)
[2021-08-16] MEDS ORDERED: AZITHROMYCIN 500 MG in SODIUM CHLORIDE 0.9% 250 ML IVPB STA (13:13)
[2021-08-16] MEDS ORDERED: ASPIRIN 81 MG PO STA (13:17)
[2021-08-16] MEDS ORDERED: amLODIPine 5 MG TAB PO STA (13:18)
[2021-08-16 14:14] LABS: INR 0.9 (<1.2); Prothrombin Time 9.6 sec (9.0-12.0)
[2021-08-16] MEDS ORDERED: NALOXONE 0.4 MG/ML 1 ML VIAL IV PRN (14:18)
[2021-08-16 14:22] LABS: C Reactive Protein <0.5 mg/dL (<1.0); LDH 402 U/L (313-618)
[2021-08-16] MEDS: SODIUM CHLORIDE 0.9% 1,000 ML IV SCH (14:49)
[2021-08-16] MEDS ORDERED: NITROGLYCERIN SL TABS 0.4 MG TAB SUBLINGUAL PRN (14:52)
[2021-08-16 18:59] LABS: Ferritin 58.7 ng/mL (22.0-322.0)
[2021-08-16] MEDS: ACETAMINOPHEN TAB 325 MG TAB PO PRN (20:32)
[2021-08-16] MEDS: SYMBICORT 160-4.5 MCG INHALER INHALATION SCH (20:57)
[2021-08-17] MEDS: SODIUM CHLORIDE 0.9% 1,000 ML IV SCH ×2 (04:00→17:52)
[2021-08-17] MEDS: ACETAMINOPHEN TAB 325 MG TAB PO PRN (05:09)
[2021-08-17] MEDS: ALBUTEROL NEBULIZED 2.5 MG/3 ML INHALATION PRN (07:34)
[2021-08-17] MEDS: PANTOPRAZOLE 40 MG TABLET PO SCH (07:35)
[2021-08-17] MEDS: SYMBICORT 160-4.5 MCG INHALER INHALATION SCH ×2 (07:35→20:57)
[2021-08-17] MEDS: MULTIVITAMINS, THERA 1 EACH TAB PO SCH (07:36)
--- NOTE | 2021-08-17 08:54 | P.HPIM ---
History of Present Illness H&P Date: 08/17/21 Chief Complaint: Chest pain. This is a history of and physical on a 76-year-old white male essentially here because of significant chest pain and headache. The patient has an underlying history of COPD and chronic migraine but because of his chest pain symptoms although atypical given his overall advancing age and pulmonary history, he is admitted to rule out myocardial infarction. The patient complains of headache this morning per no voiding difficulties. No significant diaphoresis stated. He is lucid and oriented. He is a nonsmoker at this time. No fever or chills. Review of Systems Constitutional: Denies chills, Denies fever Eyes: denies blurred vision, denies pain Ears, nose, mouth and throat: Denies headache, Denies sore throat Cardiovascular: Reports as per HPI, Reports chest pain, Denies claudication Respiratory: Denies cough Gastrointestinal: Denies abdominal pain, Denies diarrhea, Denies nausea, Denies vomiting Musculoskeletal: Denies myalgias Neurological: Reports migraines Psychiatric: Denies anxiety, Denies depression Past Medical History Past Medical History: Cancer, Chest Pain / Angina, COPD, GERD/Reflux, GI Bleed, Musculoskeletal Disorder, Prostate Disorder, Sleep Apnea/CPAP/BIPAP Additional Past Medical History / Comment(s): Hx Rt hemidiaphragmatic paralysis post plication, 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 O2 2L NC @ HS. "Broken heart syndrome." Last Myocardial Infarction Date:: 05/25/14 History of Any Multi-Drug Resistant Organisms: None Reported Past Surgical History: Adenoidectomy, Appendectomy, Back Surgery, Bowel Resection, Cholecystectomy, Heart Catheterization, Hernia Repair, Orthopedic Surgery, Tonsillectomy Additional Past Surgical History / Comment(s): 08/03/15 EGD/colonoscopy, cardiac cath x2 last 03/24/21, several back sx including laminectomy, spinous process removed T11 and T12/cage/arturo, bilat arthroscopic knee surgeries, bilat thumb s urgeries w/ rt one a titanium joint, L rotator cuff repair, sev nasal polypectomies, RFA cervical/back, R/L inguinal hernia repairs, rt orchiectomy; diaphragmatic hernia repair 03/2019 section of sigmoid colon removed. back simulator put in left hip for back pain at [facility]. rt hand 01/15 Past Anesthesia/Blood Transfusion Reactions: No Reported Reaction Past Psychological History: Depression Additional Psychological History / Comment(s): Patient resides with his spouse of 55 yrs. He has chronic pain and debilitating migraines. He has a cane and walker which he uses prn. He has falls. He drives some but spouse does most of the driving. Spouse works afternoons at [employer] in patient check in/previous MRI. Smoking Status: Former smoker Past Alcohol Use History: None Reported Additional Past Alcohol Use History / Comment(s): Pt started smoking in 1959 and quit cigarettes in 2003, smoked 1 1/2ppd Past Drug Use History: None Reported - Past Family History Father Family Medical History: Cancer Additional Family Medical History / Comment(s): Father of stomach ca at the age of 65 yrs. Mother Family Medical History: No Reported History Additional Family Medical History / Comment(s): Mother of "old age". She was 83 yrs old Brother(s) Family Medical History: Diabetes Mellitus Additional Family Medical History / Comment(s): brain tumor Sister(s) Family Medical History: Cancer, Diabetes Mellitus Additional Family Medical History / Comment(s): breast ca (sisters) Medications and Allergies Home Medications Medication Instructions Recorded Confirmed Type Omeprazole 40 mg PO DAILY 03/24/21 08/16/21 History Albuterol Nebulized [Ventolin 2.5 mg INHALATION RT-Q4H PRN 08/16/21 08/16/21 History Nebulized] Fluticasone Propion/Salmeterol 1 puff INHALATION RT-BID 08/16/21 08/16/21 History [Wixela 500-50 Inhub] Multivitamins, Thera [Multivitamin 1 tab PO DAILY 08/16/21 08/16/21 History (formulary)] Nitroglycerin Sl Tabs [Nitrostat] 0.4 mg SUBLINGUAL Q5M PRN 08/16/21 08/16/21 History Allergies Allergy/AdvReac Type Severity Reaction Status Date / Time celecoxib [From Celebrex] Allergy Unknown Verified 08/16/21 11:45 Iodinated Contrast Media Allergy Anaphylaxis Verified 08/16/21 11:45 [Iodinated Contrast Media - IV Dye] iodine Allergy Anaphylaxis Verified 08/16/21 11:45 Penicillins Allergy Anaphylaxis Verified 08/16/21 11:45 Sulfa (Sulfonamide Allergy Anaphylaxis Verified 08/16/21 11:45 Antibiotics) tramadol Allergy Swelling Verified 08/16/21 11:45 fentanyl AdvReac Severe SEVERE Verified 08/16/21 11:45 MIGRAINES adhesive AdvReac tears skin Verified 08/16/21 11:45 banana AdvReac HEADACHE Verified 08/16/21 11:45 chocolate flavor AdvReac TRIGGERS Verified 08/16/21 11:45 MIGRAINE duloxetine [From Cymbalta] AdvReac Headaches Verified 08/16/21 11:45 gabapentin AdvReac Confusion Verified 08/16/21 11:45 Opioids - Morphine Analogues AdvReac Migraine Verified 08/16/21 11:45 Opioids-Meperidine and AdvReac Migraine Verified 08/16/21 11:45 Related peanut AdvReac TRIGGERS Verified 08/16/21 11:45 MIGRAINES tree nut [Nut] AdvReac HEADACHE Verified 08/16/21 11:45 yellow dye AdvReac HEADACHE Verified 08/16/21 11:45 Physical Exam Vitals: Vital Signs Temp Pulse Pulse Resp BP BP Pulse Ox 08/17/21 07:37 72 08/17/21 07:19 97.6 F 73 18 145/81 93 L 08/17/21 00:29 97.6 F 70 16 127/72 96 08/16/21 20:30 95 16 08/16/21 19:10 97.6 F 95 16 137/80 95 08/16/21 17:30 80 18 95 08/16/21 16:32 80 18 159/89 96 08/16/21 14:23 67 18 169/93 97 08/16/21 13:04 75 18 181/94 96 08/16/21 09:40 98.4 F 70 22 154/85 97 Intake and Output 08/16/21 08/17/21 08/17/21 22:59 06:59 14:59 Other: Voiding Method Toilet # Voids 1 2 Weight 65.771 kg - Constitutional General appearance: thin - EENT Eyes: no abnormal pupil - Neck Neck: no lymphadenopathy - Respiratory Respiratory: bilateral: diminished - Cardiovascular Rhythm: regular Heart sounds: normal: S1, S2 Abnormal Heart Sounds: no S3 Gallop - Gastrointestinal General gastrointestinal: soft, no tenderness Results CBC & Chem 7: 08/16/21 11:42 08/16/21 11:42 Labs: Abnormal Lab Results - Last 24 Hours (Table) 08/16/21 Range/Units 11:42 Sodium 133 L (137-145) mmol/L Potassium 5.2 H (3.5-5.1) mmol/L Thrombosis Risk Factor Assmnt - Choose All That Apply Any of the Below Risk Factors Present?: Yes Each Factor Represents 1 point: Abnormal pulmonary function (COPD) Other Risk Factors: Yes Each Risk Factor Represents 3 Points: Age 75 years or older Other congenital or acquired thrombophilia - If yes, enter type in comment: No Thrombosis Risk Factor Assessment Total Risk Factor Score: 4 Thrombosis Risk Factor Assessment Level: Moderate Risk Assessment and Plan (1) COPD exacerbation Current Visit: Yes Status: Acute Code(s): J44.1 - CHRONIC OBSTRUCTIVE PULMONARY DISEASE W (ACUTE) EXACERBATION SNOMED Code(s): 147430778 (2) Chest pain Current Visit: Yes Status: Acute Code(s): R07.9 - CHEST PAIN, UNSPECIFIED SNOMED Code(s): 60598538 (3) Pneumonia Current Visit: No Status: Acute Code(s): J18.9 - PNEUMONIA, UNSPECIFIED ORGANISM SNOMED Code(s): 255174611 Plan: Empirically treat with Zithromax. Reconcile medications. Dilaudid 0.5 mg when necessary for headache. Rule out myocardial infarction. Consult cardiology. Prognosis is guarded secondary to his multiple comorbidities. See orders otherwise
[2021-08-17] MEDS: AZITHROMYCIN 500 MG in SODIUM CHLORIDE 0.9% 250 ML IVPB SCH (09:20)
[2021-08-17] MEDS: methylPREDNISolone SOD SUCCI 125 MG/2 ML VIAL IV SCH ×3 (09:28→20:15)
[2021-08-17] MEDS: HYDROmorphone 0.5 MG/0.5 ML SYRINGE IVP PRN ×3 (09:28→20:31)
--- NOTE | 2021-08-17 10:12 | P.CRDCN ---
History of Present Illness History of present illness: This is a 76 year old male with a past medical history of COPD, GERD, bladder cancer s/p previous resection, right testicular cancer s/p orchiectomy/radiation, history of right hemidiaphragmatic paralysis, former smoker, chronic back pain, spinal stimulator placement, GI bleed. Recent admis dany for Takotsubo cardiomyopathy in 02/2021. He follows with Dr. Pena. We have been consulted for chest pain. Patient presents with symptoms of malaise, cough, chest tightness, shortness of breath, diarrhea. He states he felt a "gurgling" in his chest and had a worsening cough with clear sputum. His tested him for COVID-19 at home and test was positive. He presented to the ER. He was started on azithromycin and IV steroids with improvement in his symptoms. He denies any current chest pain. He denies any lightheadedness, dizziness, syncope or near syncope. Denies any orthopnea or PND. He followed up with Dr. Pena in the office he underwent repeat Echocardiogram 04/20/2021 which revealed an EF of 5055% grade 2 diastolic dysfunction, mild left ventricular hypertrophy, mild mitral regurgitation, mild tricuspid regurgitation DIAGNOSTICS EKG reveals sinus rhythm, Hr 68, patient has a spinal stimulator that is likely interfering with the EKG. Last Cardiac Catheterization 02/2021 revealed left main free of any occlusive disease, no critical lesions were noted in the LAD, left circumflex free of occlusive disease and RCA free of any significant occlusive disease Chest xray bilateral lower lobe atelectasis or infiltrate. Hyperinflation suggest COPD. Stimulated device overlying the thoracic spine Laboratory reviewed, troponin negative 2, lactate 2.1, d-dimer negative, CBC unremarkable, sodium 133, potassium 4.2, BUN 19, serum 0.7 Current home medications include when necessary Nitrol, multivitamin, albuterol, omeprazole, Wixela REVIEW OF SYSTEMS At the time of my exam: CONSTITUTIONAL: Denies fever or chills. CARDIOVASCULAR: Denies chest pain, +shortness of breath, Denies orthopnea, PND or palpitations. RESPIRATORY: + cough. GASTROINTESTINAL: Denies abdominal pain, +diarrhea, Denies constipation, nausea or vomiting. MUSCULOSKELETAL: Denies myalgias. NEUROLOGIC: Denies numbness, tingling, headache or weakness. ENDOCRINE: + fatigue, Denies weight change, polydipsia or polyurina. GENITOURINARY: Denies burning, hematuria or urgency with micturation. HEMATOLOGIC: Denies history of anemia or bleeding. PHYSICAL EXAMINATION Blood [id number], heart rate 73, afebrile, oxygen saturation 90% on room air Limited exam performed on patient to reduce exposure CONSTITUTIONAL: No apparent distress. HEENT: No JVD. CHEST EXAMINATION: No chest wall tenderness is noted on palpation or with deep breathing. HEART EXAMINATION: Regular rate and rhythm. S1, S2 heard. No murmurs, gallops or rub. ABDOMEN: Soft, nontender. Positive bowel sounds. EXTREMITIES: no lower extremity edema NEUROLOGIC EXAMINATION: Patient is awake, alert and oriented x3. ASSESSMENT Possible COvid-19 Infection Symptoms of cough, diarrhea, shortness of breath Chest tightness, acute coronary syndrome has been ruled out, likely pleuritic in etiology History of Takotsubo cardiomyopathy in 02/2021, with recovery in EF COPD History of bladder cancer s/p previous resection History of right testicular cancer s/p orchiectomy/radiation History of right hemidiaphragmatic paralysis Former smoker History of GI bleed PLAN An acute coronary event has been ruled out with no EKG evidence of ischemia and negative cardiac enzymes. Cardiac catheterization performed on 02/2021 with minimal coronary artery disease. No further inpatient workup indicated at this time for chest pain. Rest of management per primary. We'll follow the patient as needed. Please reconsult if needed. Thank you kindly for this consultation. Nurse practitioner note has been reviewed by physician. Signing provider agrees with the documented findings, assessment, and plan of care. Past Medical History Past Medical History: Cancer, Chest Pain / Angina, COPD, GERD/Reflux, GI Bleed, Musculoskeletal Disorder, Prostate Disorder, Sleep Apnea/CPAP/BIPAP Additional Past Medical History / Comment(s): Hx Rt hemidiaphragmatic paralysis post plication, 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 O2 2L NC @ HS. "Broken heart syndrome." Last Myocardial Infarction Date:: 05/25/14 History of Any Multi-Drug Resistant Organisms: None Reported Past Surgical History: Adenoidectomy, Appendectomy, Back Surgery, Bowel Resection, Cholecystectomy, Heart Catheterization, Hernia Repair, Orthopedic Surgery, Tonsillectomy Additional Past Surgical History / Comment(s): 08/03/15 EGD/colonoscopy, cardiac cath x2 last 03/24/21, several back sx including laminectomy, spinous process removed T11 and T12/cage/arutro, bilat arthroscopic knee surgeries, bilat thumb surgeries w/ rt one a titanium joint, L rotator cuff repair, sev nasal polypectomies, RFA cervical/back, R/L inguinal hernia repairs, rt orchiectomy; diaphragmatic hernia repair 03/2019 section of sigmoid colon removed. back simulator put in left hip for back pain at [facility]. rt hand 01/15 Past Anesthesia/Blood Transfusion Reactions: No Reported Reaction Past Psychological History: Depression Additional Psychological History / Comment(s): Patient resides with his spouse of 55 yrs. He has chronic pain and debilitating migraines. He has a cane and walker which he uses prn. He has falls. He drives some but spouse does most of the driving. Spouse works afternoons at [employer] in patient check in/previous MRI. Smoking Status: Former smoker Past Alcohol Use History: None Reported Additional Past Alcohol Use History / Comment(s): Pt started smoking in 1959 and quit cigarettes in 2003, smoked 1 1/2ppd Past Drug Use History: None Reported - Past Family History Father Family Medical History: Cancer Additional Family Medical History / Comment(s): Father of stomach ca at the age of 65 yrs. Mother Family Medical History: No Reported History Additional Family Medical History / Comment(s): Mother of "old age". She was 83 yrs old Brother(s) Family Medical History: Diabetes Mellitus Additional Family Medical History / Comment(s): brain tumor Sister(s) Family Medical History: Cancer, Diabetes Mellitus Additional Family Medical History / Comment(s): breast ca (sisters) Medications and Allergies Home Medications Medication Instructions Recorded Confirmed Type Omeprazole 40 mg PO DAILY 03/24/21 08/16/21 History Albuterol Nebulized [Ventolin 2.5 mg INHALATION RT-Q4H PRN 08/16/21 08/16/21 History Nebulized] Fluticasone Propion/Salmeterol 1 puff INHALATION RT-BID 08/16/21 08/16/21 History [Wixela 500-50 Inhub] Multivitamins, Thera [Multivitamin 1 tab PO DAILY 08/16/21 08/16/21 History (formulary)] Nitroglycerin Sl Tabs [Nitrostat] 0.4 mg SUBLINGUAL Q5M PRN 08/16/21 08/16/21 History Allergies Allergy/AdvReac Type Severity Reaction Status Date / Time celecoxib [From Celebrex] Allergy Unknown Verified 08/16/21 11:45 Iodinated Contrast Media Allergy Anaphylaxis Verified 08/16/21 11:45 [Iodinated Contrast Media - IV Dye] iodine Allergy Anaphylaxis Verified 08/16/21 11:45 Penicillins Allergy Anaphylaxis Verified 08/16/21 11:45 Sulfa (Sulfonamide Allergy Anaphylaxis Verified 08/16/21 11:45 Antibiotics) tramadol Allergy Swelling Verified 08/16/21 11:45 fentanyl AdvReac Severe SEVERE Verified 08/16/21 11:45 MIGRAINES adhesive AdvReac tears skin Verified 08/16/21 11:45 banana AdvReac HEADACHE Verified 08/16/21 11:45 chocolate flavor AdvReac TRIGGERS Verified 08/16/21 11:45 MIGRAINE duloxetine [From Cymbalta] AdvReac Headaches Verified 08/16/21 11:45 gabapentin AdvReac Confusion Verified 08/16/21 11:45 Opioids - Morphine Analogues AdvReac Migraine Verified 08/16/21 11:45 Opioids-Meperidine and AdvReac Migraine Verified 08/16/21 11:45 Related peanut AdvReac TRIGGERS Verified 08/16/21 11:45 MIGRAINES tree nut [Nut] AdvReac HEADACHE Verified 08/16/21 11:45 yellow dye AdvReac HEADACHE Verified 08/16/21 11:45 Physical Exam Vitals: Vital Signs Temp Pulse Pulse Resp BP BP Pulse Ox 08/17/21 07:19 97.6 F 73 18 145/81 93 L 08/17/21 00:29 97.6 F 70 16 127/72 96 08/16/21 20:30 95 16 08/16/21 19:10 97.6 F 95 16 137/80 95 08/16/21 17:30 80 18 95 08/16/21 16:32 80 18 159/89 96 08/16/21 14:23 67 18 169/93 97 08/16/21 13:04 75 18 181/94 96 06/22/22 09:40 98.4 F 70 22 154/85 97 Intake and Output 08/16/21 08/17/21 08/17/21 22:59 06:59 14:59 Other: Voiding Method Toilet # Voids 1 2 Weight 65.771 kg Results 08/16/21 11:42 08/16/21 11:42 Cardiac Enzymes 08/16/21 08/16/21 08/16/21 Range/Units 11:42 11:42 13:41 AST 27 (17-59) U/L Lactate Dehydrogenase 402 (313-618) U/L Troponin I <0.012 (0.000-0.034) ng/mL 08/16/21 Range/Units 14:58 AST (17-59) U/L Lactate Dehydrogenase (313-618) U/L Troponin I <0.012 (0.000-0.034) ng/mL Coagulation 08/16/21 08/16/21 Range/Units 11:42 13:41 PT 9.5 9.6 (9.0-12.0) sec APTT 25.5 (22.0-30.0) sec CBC 08/16/21 Range/Units 11:42 WBC 5.7 (3.8-10.6) k/uL RBC 4.36 (4.30-5.90) m/uL Hgb 14.5 (13.0-17.5) gm/dL Hct 42.8 (39.0-53.0) % Plt Count 196 (150-450) k/uL Comprehensive Metabolic Panel 08/16/21 Range/Units 11:42 Sodium 133 L (137-145) mmol/L Potassium 5.2 H (3.5-5.1) mmol/L Chloride 100 (98-107) mmol/L Carbon Dioxide 30 (22-30) mmol/L BUN 19 (9-20) mg/dL Creatinine 0.74 (0.66-1.25) mg/dL Glucose 99 (74-99) mg/dL Calcium 9.1 (8.4-10.2) mg/dL AST 27 (17-59) U/L ALT 21 (4-49) U/L Alkaline Phosphatase 77 (38-126) U/L Total Protein 6.5 (6.3-8.2) g/dL Albumin 4.0 (3.5-5.0) g/dL Current Medications Generic Name Dose Route Start Last Admin Trade Name Freq PRN Reason Stop Dose Admin Acetaminophen 650 mg 08/16/21 14:18 08/17/21 05:09 Acetaminophen Tab 325 Mg Tab PO 650 mg Q6HR PRN Administration Mild Pain or Fever > 100.5 Albuterol Sulfate 2.5 mg 08/16/21 14:21 Albuterol Nebulized 2.5 Mg/3 Ml INHALATION RT-Q4H PRN Shortness Of Breath Budesonide/Formoterol Fumarate 2 puff 08/16/21 20:00 08/16/21 20:57 Symbicort 160-4.5 Mcg Inhaler INHALATION Not Given RT-BID AMEE Sodium Chloride 1,000 mls @ 75 mls/hr 08/16/21 14:30 08/17/21 04:00 Saline 0.9% IV 75 mls/hr .[id number] AMEE Administration Multivitamins 1 each 08/17/21 09:00 Multivitamins, Thera 1 Each Tab PO DAILY AMEE Naloxone HCl 0.2 mg 08/16/21 14:18 Naloxone 0.4 Mg/Ml 1 Ml Vial IV Q2M PRN Opioid Reversal Nitroglycerin 0.4 mg 08/16/21 14:52 08/16/21 16:32 Nitroglycerin Sl Tabs 0.4 Mg Tab SUBLINGUAL 0.4 mg Q5M PRN Administration Chest Pain Pantoprazole Sodium 40 mg 08/17/21 07:30 Pantoprazole 40 Mg Tablet PO AC-BRKFST AMEE Intake and Output 08/16/21 08/17/21 08/17/21 22:59 06:59 14:59 Other: Voiding Method Toilet # Voids 1 2 Weight 65.771 kg 08/16/21 11:42 08/16/21 11:42
[2021-08-18] MEDS: HYDROmorphone 0.5 MG/0.5 ML SYRINGE IVP PRN ×4 (02:34→20:51)
[2021-08-18] MEDS: methylPREDNISolone SOD SUCCI 125 MG/2 ML VIAL IV SCH ×4 (02:34→20:59)
[2021-08-18] MEDS: SODIUM CHLORIDE 0.9% 1,000 ML IV SCH ×2 (05:35→21:02)
[2021-08-18] MEDS: PANTOPRAZOLE 40 MG TABLET PO SCH (07:53)
[2021-08-18] MEDS: MULTIVITAMINS, THERA 1 EACH TAB PO SCH (07:53)
[2021-08-18] MEDS: AZITHROMYCIN 500 MG in SODIUM CHLORIDE 0.9% 250 ML IVPB SCH (07:54)
--- NOTE | 2021-08-18 08:43 | P.PN ---
Subjective Principal diagnosis: Chest pain with bibasilar atelectasis/infiltrate The patient's headache is much improved with the Dilaudid. He is anticipating increasing ambulation. Cough is now dry and less prominent. No voiding difficulties. Objective - Vital Signs Vital signs: Vital Signs Temp 97.9 F 08/18/21 00:51 Pulse 75 08/18/21 00:51 Resp 16 08/18/21 00:51 BP 138/75 08/18/21 00:51 Pulse Ox 97 08/18/21 00:51 FiO2 Intake & Output 08/17/21 08/18/21 08/18/21 18:59 06:59 18:59 Other: Voiding Method Toilet Toilet # Voids 3 2 - Constitutional General appearance: Present: no acute distress, thin - EENT Eyes: Present: anicteric sclerae - Neck Neck: Absent: lymphadenopathy - Respiratory Respiratory: bilateral: diminished - Cardiovascular Rhythm: regular Heart sounds: normal: S1, S2 Abnormal Heart Sounds: Absent: S3 Gallop - Gastrointestinal General gastrointestinal: Present: soft. Absent: tenderness - Neurologic Neurologic: Present: CNII-XII intact - Labs CBC & Chem 7: 08/16/21 11:42 08/16/21 11:42 Labs: Abnormal Lab Results - Last 24 Hours (Table) 08/17/21 Range/Units 08:38 Plasma Lactic Acid Finesse 2.1 H* (0.7-2.0) mmol/L Assessment and Plan (1) COPD exacerbation Current Visit: Yes Status: Acute Code(s): J44.1 - CHRONIC OBSTRUCTIVE PULMONARY DISEASE W (ACUTE) EXACERBATION SNOMED Code(s): 220158202 (2) Chest pain Current Visit: Yes Status: Acute Code(s): R07.9 - CHEST PAIN, UNSPECIFIED SNOMED Code(s): 66660854 (3) Pneumonia Current Visit: No Status: Acute Code(s): J18.9 - PNEUMONIA, UNSPECIFIED ORGANISM SNOMED Code(s): 111241848 Plan: Continue Zithromax treatment. Continue Dilaudid. Appreciate multiple consultants input. Increase ambulation per new graft check CBC and CMP in a.m.
[2021-08-18] MEDS: SYMBICORT 160-4.5 MCG INHALER INHALATION SCH ×2 (08:47→19:56)
[2021-08-18] MEDS: ALBUTEROL NEBULIZED 2.5 MG/3 ML INHALATION PRN (08:48)
[2021-08-18 09:06] LABS: HCT 38.5 % (39.6-50.0); HGB 12.7 g/dL (13.0-17.0); MCH 31.8 pg (27.0-32.0); MCV 96.5 fL (80.0-97.0); Mean Platelet Volume 10.9 fL (9.5-12.2); NRBC Per 100 WBC 0 /100 WBCS (0.0-0.0); Platelet Count 227 X 10*3/uL (140-440); RBC 3.99 X 10*6/uL (4.40-5.60); RDW 14.6 % (11.5-14.5); WBC 10.69 X 10*3/uL (4.50-10.00)
[2021-08-18 09:18] LABS: African American GFR (CKD) 106.2 (60.0-200.0); Albumin 3.6 g/dL (3.8-4.9); Anion Gap 7.4 mmol/L (10.00-18.00); Blood Urea Nitrogen 14.7 mg/dL (9.0-27.0); Calcium 9.1 mg/dL (8.7-10.3); Carbon Dioxide 26.6 mmol/L (20.0-27.5); Globulin 1.8 g/dL (1.6-3.3); Non-African American GFR(CKD) 91.7 (60.0-200.0); Potassium 4.6 mmol/L (3.5-5.5); Total Bilirubin 0.3 mg/dL (0.30-1.20); Total Protein 5.4 g/dL (6.2-8.2)
[2021-08-18] MEDS: ACETAMINOPHEN TAB 325 MG TAB PO PRN (19:19)
[2021-08-19] MEDS: methylPREDNISolone SOD SUCCI 125 MG/2 ML VIAL IV SCH ×2 (02:25→08:45)
[2021-08-19] MEDS: HYDROmorphone 0.5 MG/0.5 ML SYRINGE IVP PRN ×4 (02:26→22:07)
[2021-08-19] MEDS: PANTOPRAZOLE 40 MG TABLET PO SCH (07:13)
[2021-08-19] MEDS: MULTIVITAMINS, THERA 1 EACH TAB PO SCH (07:13)
[2021-08-19 07:20] LABS: African American GFR (CKD) >90 (>60 ml/min/1.73 sqM); Anion Gap 4 mmol/L; Blood Urea Nitrogen 20 mg/dL (9-20); Calcium 8.9 mg/dL (8.4-10.2); Carbon Dioxide 29 mmol/L (22-30); Chloride 103 mmol/L (98-107); Glucose 121 mg/dL (74-99); Magnesium 2.1 mg/dL (1.6-2.3); Non-African American GFR(CKD) >90 (>60 ml/min/1.73 sqM); Potassium 4.4 mmol/L (3.5-5.1); Sodium 136 mmol/L (137-145)
[2021-08-19] MEDS: SODIUM CHLORIDE 0.9% 1,000 ML IV SCH (08:47)
[2021-08-19] MEDS: ALBUTEROL NEBULIZED 2.5 MG/3 ML INHALATION PRN ×2 (09:40→19:55)
[2021-08-19] MEDS: SYMBICORT 160-4.5 MCG INHALER INHALATION SCH ×2 (09:40→20:05)
[2021-08-19] MEDS ORDERED: predniSONE 20 MG TAB PO SCH (10:45)
--- NOTE | 2021-08-19 11:11 | XR ---
EXAMINATION TYPE: XR chest 1V DATE OF EXAM: 08/19/2021 HISTORY: Shortness of breath. COMPARISON: 08/16/2021 TECHNIQUE: Single view of the chest is submitted. FINDINGS: Demonstrated are scattered senescent parenchymal change. Right basilar atelectasis and/or infiltrate with small effusion persists and may be slightly more pro minent on today's study. The heart is stable. Hilar and mediastinal structures are within normal limits. Degenerative changes are seen of the dorsal spine. IMPRESSION: 1. Right basilar atelectasis and/or infiltrate with small effusion persists and may be slightly more prominent on today's study.
--- NOTE | 2021-08-19 22:04 | P.PN ---
Subjective This is a pleasant 76 years old male with multiple medical problems including COPD, GERD/Reflux, GI Bleed, BPH, Sleep Apnea/CPAP/BIPAP, bladder cancer and right testicular cancer status post surgical and radiotherapy, was admitted with signs symptoms of acute COPD exacerbation with bilateral lower atelectasis/infiltrate, patient with no fever or leukocytosis to indicate infection, he was treated with some Medrol 60 mg once normal saline at 75 mL/h and Symbicort and Dilaudid Repeat Chest x-ray: Right basilar atelectasis and/or infiltrate with small effusion persist and may be slightly more prominent on today's study procalcitonin is low less than 0.02. possible Discharge in 24-48 hours Objective - Vital Signs Vital signs: Vital Signs Temp 98.1 F 08/19/21 07:37 Pulse 88 08/19/21 09:53 Resp 16 08/19/21 07:37 BP 176/79 08/19/21 07:37 Pulse Ox 91 L 08/19/21 07:37 FiO2 21 08/18/21 19:56 Intake & Output 08/18/21 08/19/21 08/19/21 18:59 06:59 18:59 Other: Voiding Method Toilet Toilet Toilet # Voids 4 3 - Exam GENERAL: The patient is alert and oriented x3, not in any acute distress. Well developed, well nourished. HEENT: Pupils are round and equally reacting to light. EOMI. No scleral icterus. No conjunctival pallor. Normocephalic, atraumatic. No pharyngeal erythema. No thyromegaly. CARDIOVASCULAR: S1 and S2 present. No murmurs, rubs, or gallops. -PULMONARY: Chest is clear to auscultation, bilateral scattered wheezing. No crackles. ABDOMEN: Soft, nontender, nondistended, normoactive bowel sounds. No palpable organomegaly. MUSCULOSKELETAL: No joint swelling or deformity. EXTREMITIES: No cyanosis, clubbing, or pedal edema. NEUROLOGICAL: Gross neurological examination did not reveal any focal deficits. SKIN: No rashes. no petechiae. - Labs CBC & Chem 7: 08/18/21 04:23 08/19/21 04:44 Labs: Abnormal Lab Results - Last 24 Hours (Table) 08/19/21 08/19/21 Range/Units 04:44 04:44 Sodium 136 L (137-145) mmol/L Glucose 121 H (74-99) mg/dL Procalcitonin <0.02 L (0.02-0.09) ng/mL Assessment and Plan Assessment: Acute COPD exacerbation Right lower lobe atelectasis. Fever absent, no leukocytosis therefore infection is unlikely. Also priorcalcitonin is low. History of prostate cancer and urinary bladder cancer Plan: This is a pleasant 76 years old male with COPD exacerbation Continue with Medrol and Symbicort Discontinue IV Fluids Labs and medication were reviewed.. Continue same treatment. Continue with symptomatic treatment. Resume home medication. Monitor lytes and vitals. DVT and GI prophylaxis. Further recommendations as per clinical course of the patient DVT prophylaxis: Subcutaneous heparin GI Prophylaxis: Pepcid Possible discharge in 24-48 hours
[2021-08-20 03:27] VITALS: RESP 18
[2021-08-20] MEDS: HYDROmorphone 0.5 MG/0.5 ML SYRINGE IVP PRN ×2 (04:06→10:21)
[2021-08-20] MEDS: PANTOPRAZOLE 40 MG TABLET PO SCH (07:36)
[2021-08-20] MEDS: MULTIVITAMINS, THERA 1 EACH TAB PO SCH (07:36)
[2021-08-20] MEDS: ALBUTEROL NEBULIZED 2.5 MG/3 ML INHALATION PRN (08:40)
[2021-08-20] MEDS: SYMBICORT 160-4.5 MCG INHALER INHALATION SCH (08:40)
[2021-08-20] MEDS ORDERED: methylPREDNISolone SOD SUCCI 40 MG/ML 1 ML VIAL IV SCH (09:00)
[2021-08-20] MEDS ORDERED: HEPARIN SODIUM,PORCINE/PF 5,000 UNIT/0.5 ML SYRINGE SQ SCH (09:00)
--- NOTE | 2021-08-20 11:50 | P.CNPUL ---
History of Present Illness Consult date: 08/20/21 Requesting physician: Sha Larson Reason for consult: dyspnea, COPD Chief complaint: Shortness of breath, chest pain History of present illness: This is a very pleasant 76-year-old male patient who follows with as his primary care provider. He has a history of gastroesophageal reflux disease, GI bleeding, hearing disorder, muscle skeletal disorder, prostate disorder and chronic obstructive pulmonary disease and follows with Dr. Medrano in our office for the same. He has a cold stage III COPD with an FEV1 value of 43% of predicted. He is currently on Advair and albuterol in the outpatient setting. He was intolerant to Trelegy. He presented here to the emergency room on 08/16/2021 with complaints of midsternal chest pain, shortness of breath cough and congestion. Chest x-ray showed bilateral lower lobe atelectasis/infiltrate and evidence of COPD. EKG revealed sinus rhythm with nonspecific ST and T wave abnormalities. Troponins were negative. Pro-calcitonin was 0.04. Jones virus by PCR not detected. Influenza screen negative. RSV screen negative. White c ount 10.6. Hemoglobin 12.7. Sodium 136. Potassium 4.4. BUN 20. Creatinine 0.69. Glucose 121. He's been initiated on Symbicort, Solu-Medrol, albuterol. Heparin for DVT prophylaxis. He is seen today in consultation on the regular medical floor. He is resting quite comfortably in bed. Awake and alert in no acute distress. Feeling nearly back to his baseline. His maintaining O2 saturations in the mid 90s on 2 L/m per nasal cannula. Afebrile. Hemodynamically stable Review of Systems REVIEW OF SYSTEMS: CONSTITUTIONAL: Denies any recent significant weight loss or weight gain. EYES: Denies change in vision. EARS, NOSE, MOUTH, THROAT: Denies headaches, denies sore throat. CARDIOVASCULAR: Positive for chest pain, no palpitations or syncopal episodes. RESPIRATORY: Positive for shortness of breath, cough, congestion no hemoptysis. GASTROINTESTINAL: Denies change in appetite, denies abdominal pain GENITOURINARY: Denies hematuria, denies infections. MUSKULOSKELETAL: Denies pain, denies swelling. INTEGUMENTARY: Denies rash, denies eczema. NEUROLOGICAL: Denies recent memory loss, no recent seizure activity. PSYCHIATRIC: Denies anxiety, denies depression. HEMATOLOGIC/LYMPHATIC: Denies anemia, denies enlarged lymph nodes. Past Medical History Past Medical History: Cancer, Chest Pain / Angina, COPD, GERD/Reflux, GI Bleed, Musculoskeletal Disorder, Prostate Disorder, Sleep Apnea/CPAP/BIPAP Additional Past Medical History / Comment(s): Hx Rt hemidiaphragmatic paralysis post plication, 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 O2 2L NC @ [facility]. "Broken heart syndrome." Last Myocardial Infarction Date:: 05/25/14 History of Any Multi-Drug Resistant Organisms: None Reported Past Surgical History: Adenoidectomy, Appendectomy, Back Surgery, Bowel Resection, Cholecystectomy, Heart Catheterization, Hernia Repair, Orthopedic Surgery, Tonsillectomy Additional Past Surgical History / Comment(s): 08/03/15 EGD/colonoscopy, cardiac cath x2 last 03/24/21, several back sx including laminectomy, spinous process removed T11 and T12/cage/arturo, bilat arthroscopic knee surgeries, bilat thumb surgeries w/ rt one a titanium joint, L rotator cuff repair, sev nasal polypectomies, RFA cervical/back, R/L inguinal hernia repairs, rt orchiectomy; diaphragmatic hernia repair 03/2019 section of sigmoid colon removed. back simulator put in left hip for back pain at [facility]. rt hand 01/15 Past Anesthesia/Blood Transfusion Reactions: No Reported Reaction Past Psychological History: Depression Additional Psychological History / Comment(s): Patient resides with his spouse of 55 yrs. He has chronic pain and debilitating migraines. He has a cane and walker which he uses prn. He has falls. He drives some but spouse does most of the driving. Spouse works afternoons at [employer] in patient check in/previous MRI. Smoking Status: Former smoker Past Alcohol Use History: None Reported Additional Past Alcohol Use History / Comment(s): Pt started smoking in 1959 and quit cigarettes in 2003, smoked 1 1/2ppd Past Drug Use History: None Reported - Past Family History Father Family Medical History: Cancer Additional Family Medical History / Comment(s): Father of stomach ca at the age of 65 yrs. Mother Family Medical History: No Reported History Additional Family Medical History / Comment(s): Mother of "old age". She was 83 yrs old Brother(s) Family Medical History: Diabetes Mellitus Additional Family Medical History / Comment(s): brain tumor Sister(s) Family Medical History: Cancer, Diabetes Mellitus Additional Family Medical History / Comment(s): breast ca (sisters) Medications and Allergies Home Medications Medication Instructions Recorded Confirmed Type Omeprazole 40 mg PO DAILY 03/24/21 08/16/21 History Albuterol Nebulized [Ventolin 2.5 mg INHALATION RT-Q4H PRN 08/16/21 08/16/21 History Nebulized] Fluticasone Propion/Salmeterol 1 puff INHALATION RT-BID 08/16/21 08/16/21 History [Wixela 500-50 Inhub] Multivitamins, Thera [Multivitamin 1 tab PO DAILY 08/16/21 08/16/21 History (formulary)] Nitroglycerin Sl Tabs [Nitrostat] 0.4 mg SUBLINGUAL Q5M PRN 08/16/21 08/16/21 History Allergies Allergy/AdvReac Type Severity Reaction Status Date / Time celecoxib [From Celebrex] Allergy Unknown Verified 08/16/21 11:45 Iodinated Contrast Media Allergy Anaphylaxis Verified 08/16/21 11:45 [Iodinated Contrast Media - IV Dye] iodine Allergy Anaphylaxis Verified 08/16/21 11:45 Penicillins Allergy Anaphylaxis Verified 08/16/21 11:45 Sulfa (Sulfonamide Allergy Anaphylaxis Verified 08/16/21 11:45 Antibiotics) tramadol Allergy Swelling Verified 08/16/21 11:45 fentanyl AdvReac Severe SEVERE Verified 08/16/21 11:45 MIGRAINES adhesive AdvReac tears skin Verified 08/16/21 11:45 banana AdvReac HEADACHE Verified 08/16/21 11:45 chocolate flavor AdvReac TRIGGERS Verified 08/16/21 11:45 MIGRAINE duloxetine [From Cymbalta] AdvReac Headaches Verified 08/16/21 11:45 gabapentin AdvReac Confusion Verified 08/16/21 11:45 Opioids - Morphine Analogues AdvReac Migraine Verified 08/16/21 11:45 Opioids-Meperidine and AdvReac Migraine Verified 08/16/21 11:45 Related peanut AdvReac TRIGGERS Verified 08/16/21 11:45 MIGRAINES tree nut [Nut] AdvReac HEADACHE Verified 08/16/21 11:45 yellow dye AdvReac HEADACHE Verified 08/16/21 11:45 Physical Exam Vitals: Vital Signs Temp Pulse Pulse Resp BP Pulse Ox FiO2 08/20/21 08:40 68 08/20/21 07:53 98.0 F 63 18 158/77 96 08/20/21 01:20 97.8 F 69 18 126/63 98 08/19/21 20:05 76 08/19/21 19:55 72 94 L 21 08/19/21 19:46 98.4 F 76 17 149/77 92 L 08/19/21 14:00 97.4 F L 83 18 135/67 94 L Intake and Output 08/19/21 08/20/21 08/20/21 22:59 06:59 14:59 Intake Total 1080 Balance 1080 Intake: Oral 1080 Other: Voiding Method Toilet Toilet # Voids 3 3 # Bowel Movements 3 GENERAL EXAM: Alert, pleasant 76-year-old gentleman on 2 L nasal cannula, comfortable in no apparent distress. HEAD: Normocephalic. EYES: Normal reaction of pupils, equal size. NOSE: Clear with pink turbinates. THROAT: No erythema or exudates. NECK: No masses, no JVD. CHEST: No chest wall deformity. LUNGS: Equal air entry with no crackles, wheeze, rhonchi or dullness. Diminished. CVS: S1 and S2 normal with no audible murmur, regular rhythm. ABDOMEN: No hepatosplenomegaly, normal bowel sounds, no guarding or rigidity. SPINE: No scoliosis or deformity SKIN: No rashes CENTRAL NERVOUS SYSTEM: No focal deficits, tone is normal in all 4 extremities. EXTREMITIES: There is no peripheral edema. No clubbing, no cyanosis. P eripheral pulses are intact. Results - Laboratory Findings CBC and BMP: 08/18/21 04:23 08/19/21 04:44 PT/INR, D-dimer PT 9.6 sec (9.0-12.0) 08/16/21 13:41 INR 0.9 (<1.2) 08/16/21 13:41 D-Dimer 0.57 mg/L FEU (<0.60) 08/16/21 11:42 Abnormal lab findings: Abnormal Labs 08/16/21 08/17/21 08/18/21 11:42 08:38 04:20 WBC RBC Hgb Hct RDW Sodium 133 L Potassium 5.2 H Anion Gap 7.40 L BUN/Creatinine Ratio 21.00 H Glucose 144 H Plasma Lactic Acid Finesse 2.1 H* Total Protein 5.4 L Albumin 3.6 L Procalcitonin 08/18/21 08/19/21 08/19/21 04:23 04:44 04:44 WBC 10.69 H RBC 3.99 L Hgb 12.7 L Hct 38.5 L RDW 14.6 H Sodium 136 L Potassium Anion Gap BUN/Creatinine Ratio Glucose 121 H Plasma Lactic Acid Finesse Total Protein Albumin Procalcitonin <0.02 L - Diagnostic Findings Chest x-ray: image reviewed Assessment and Plan Assessment: Acute exacerbation of chronic obstructive pulmonary disease, Procalcitonin less than 0.02 Advanced COPD with an FEV1 value of 43% of predicted, intolerant to Trelegy, remains on Advair and albuterol in the outpatient setting Atypical chest pain History of right hemidiaphragmatic paralysis post plication History of bladder cancer with excision of tumor History of migraines 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 Medrano in our office I have personally seen and examined the patient, performed the documentation and the assessment and plan as written. Number of minutes spent on the visit: 20.
[2021-08-20] MEDS ORDERED: ACETAMINOPHEN TAB 325 MG TAB PO PRN (11:51)
[2021-08-20] MEDS ORDERED: HYDROcodone/APAP 5-325MG 1 EACH TAB PO PRN (11:52)
[2021-08-20 14:56] VITALS: BP 159/79; PULSE 76; TEMP 98.2
--- NOTE | 2021-08-21 02:01 | P.DS ---
Providers Date of admission: 08/17/21 11:20 Attending physician: Lul Garcia Consults: 08/16/21 14:18 Consult Physician Routine Consulting Provider: Tyae Cedeño Consult Reason/Comments: Chest pain Do you want consulting provider notified?: Yes, Notify in am 08/19/21 11:22 Consult Physician Urgent Consulting Provider: Ion Trent Consult Reason/Comments: copd and right lower lobe infilter/atelectasis Do you want consulting provider notified?: Yes Primary care physician: Lul Garcia Hospital Course: Diagnoses Acute COPD exacerbation Right lower lobe atelectasis. Fever absent, no leukocytosis therefore infection is unlikely. Also priorcalcitonin is low. History of prostate cancer and urinary bladder cancer Hospital course: This is a pleasant 76 years old male with multiple medical problems including COPD, GERD/Reflux, GI Bleed, BPH, Sleep Apnea/CPAP/BIPAP, bladder cancer and right testicular cancer status post surgical and radiotherapy, was admitted with signs symptoms of acute COPD exacerbation with bilateral lower atelectasis/infiltrate, patient with no fever or leukocytosis to indicate infection, he was treated with some Medrol 60 mg, normal saline at 75 mL/h and Symbicort and Dilaudid. Repeat Chest x-ray: Right basilar atelectasis and/or infiltrate with small effusion persist and may be slightly more prominent on today's study procalcitonin is low less than 0.02. Patient also has been evaluated by lead slot technician who cleared him for discharge Since yesterday patient was encouraged to go home however he agreed for sending hospital and monitored. Today he was more eager to go home that afternoon rounds patient was seen already dressed up and the motel front desk clerk asking for his discharge. Patient looks clinically stable. Patient confirms to me he has home oxygen. No need for antibiotics upon discharge, and this point felt antibiotics with have more harm than benefits Problems and management plan were discussed with the patient and he verbalized understanding and acceptance Patient was found stable and can be discharged home in guarded prognosis, also patient is high-risk for COPD exacerbation and infection given the fact his immunocompromised, therefore he needs follow-up as an outpatient. Patient was instructed to follow up with PCP within one week and patient agrees also patient was asked to follow-up with lead slot technician Dr. Medrano in one week and he agrees to call and make is on appointments as today is weekend Physical exam Gen: patient is a AAOx3, no distress CVS: S1-S2, RRR, no murmur Lungs: B/L CTA, no wheezing Abdomen: soft, no distention, no tenderness, positive bowel sounds Extremity: no leg edema or induration Time spent more than 35 minutes Patient Condition at Discharge: Fair Plan - Discharge Summary Discharge Rx Participant: No New Discharge Prescriptions: New predniSONE 10 mg PO DIRECTED #40 tab Acetaminophen Tab [Tylenol] 325 mg PO Q6HR PRN tab PRN Reason: Mild Pain Or Fever > 100.5 Continue Multivitamins, Thera [Multivitamin (formulary)] 1 tab PO DAILY Albuterol Nebulized [Ventolin Nebulized] 2.5 mg INHALATION RT-Q4H PRN PRN Reason: Shortness Of Breath Omeprazole 40 mg PO DAILY Fluticasone Propion/Salmeterol [Wixela 500-50 Inhub] 1 puff INHALATION RT-BID Nitroglycerin Sl Tabs [Nitrostat] 0.4 mg SUBLINGUAL Q5M PRN PRN Reason: Chest Pain Discharge Medication List Omeprazole 40 mg PO DAILY 03/24/21 [History] Albuterol Nebulized [Ventolin Nebulized] 2.5 mg INHALATION RT-Q4H PRN 08/16/21 [History] Fluticasone Propion/Salmeterol [Wixela 500-50 Inhub] 1 puff INHALATION RT-BID 08/16/21 [History] Multivitamins, Thera [Multivitamin (formulary)] 1 tab PO DAILY 08/16/21 [History] Nitroglycerin Sl Tabs [Nitrostat] 0.4 mg SUBLINGUAL Q5M PRN 08/16/21 [History] Acetaminophen Tab [Tylenol] 325 mg PO Q6HR PRN tab 08/20/21 [Rx] predniSONE 10 mg PO DIRECTED #40 tab 08/20/21 [Rx] Follow up Appointment(s)/Referral(s): Lul Garcia MD [Primary Care Provider] - 1-2 days (PLEASE CALL AND SCHEDULE YOUR APPOINTMENT) Bharath Medrano MD [STAFF PHYSICIAN] - 1 Week (PLEASE CALL AND SCHEDULE YOUR APPOINTMENT ) Patient Instructions/Handouts: Migraine Headache (GEN), COPD (Chronic Obstructive Pulmonary Disease) (DC) Activity/Diet/Wound Care/Special Instructions: low carbohydrate diet activity is restricted till you see your doctor Discharge Disposition: HOME SELF-CARE
== END 2021-08-20 14:58 | disposition home or self-care (01) | DRG 191 ==
LOC: EC 09:35 → 3SCARD 14:25 → 4SSUR 14:29 → OBSVTOIN 08-17 11:20
PROVIDERS: ADMIT Family Medicine; ATTEND Family Medicine
DX: J44.1 Chronic obstructive pulmonary disease with (acute) exacerbation (principal); J98.11 Atelectasis; J90 Pleural effusion, not elsewhere classified; Z20.822 Contact with and (suspected) exposure to COVID-19; K21.9 Gastro-esophageal reflux disease without esophagitis; K29.70 Gastritis, unspecified, without bleeding; I10 Essential (primary) hypertension; R07.89 Other chest pain; G51.0 Bell's palsy; I08.1 Rheumatic disorders of both mitral and tricuspid valves; G89.29 Other chronic pain; H91.90 Unspecified hearing loss, unspecified ear; M54.9 Dorsalgia, unspecified; J98.6 Disorders of diaphragm; G47.30 Sleep apnea, unspecified; G43.909 Migraine, unspecified, not intractable, without status migrainosus; F32.A Depression, unspecified; I25.2 Old myocardial infarction; Z99.81 Dependence on supplemental oxygen; Z96.82 Presence of neurostimulator; Z90.79 Acquired absence of other genital organ(s); Z90.49 Acquired absence of other specified parts of digestive tract; Z91.041 Radiographic dye allergy status; Z91.018 Allergy to other foods; Z88.5 Allergy status to narcotic agent; Z88.2 Allergy status to sulfonamides; Z88.8 Allergy status to other drugs, medicaments and biological substances; Z91.048 Other nonmedicinal substance allergy status; Z91.02 Food additives allergy status; Z79.899 Other long term (current) drug therapy; Z85.51 Personal history of malignant neoplasm of bladder; Z85.47 Personal history of malignant neoplasm of testis; Z87.19 Personal history of other diseases of the digestive system; Z87.891 Personal history of nicotine dependence; Z88.0 Allergy status to penicillin; Z83.3 Family history of diabetes mellitus; Z80.3 Family history of malignant neoplasm of breast
CPT/HCPCS: 36415; 71045; 71046; 80048; 80053; 82728; 83605; 83615; 83735; 84145; 84484; 85025; 85027; 85379; 85610; 85730; 86140; 87502; 87634; 87635; 93005; 94640; 94760; 96365; 96375; 99285

== ENCOUNTER 2021-09-11 07:11 | Day surgery (SDC) | payer MEDICARE ==
[2021-09-08 09:46] VITALS: BMI 21.4
--- NOTE | 2021-09-11 07:35 | P.GSHP ---
History of Present Illness H&P Date: 09/11/21 CHIEF COMPLAINT: GERD HISTORY OF PRESENT ILLNESS: The patient is a 76-year-old male who presents reports gastroesophageal reflux disease. Upper endoscopy was offered for further evaluation and management. PAST MEDICAL HISTORY: Please see list. PAST SURGICAL HISTORY: Please see list. MEDICATIONS: Please see list. ALLERGIES: Please see list. SOCIAL HISTORY: No illicit drug use FAMILY HISTORY: No reports of Crohn disease or ulcerative colitis. REVIEW OF ORGAN SYSTEMS: CONSTITUTIONAL: No reports of fevers or chills. GI: Denies any blood in stools or constipation. PHYSICAL EXAM: VITAL SIGNS: Stable GENERAL: Well-developed and pleasant in no acute distress. HEENT: No scleral icterus. Extraocular movements grossly intact. Moist buccal mucosa. NECK: Supple without lymphadenopathy. CHEST: Unlabored respirations. Equal bilateral excursions. CARDIOVASCULAR: Regular rate and rhythm. Distal 2+ pulses. ABDOMEN: Soft, nondistended. MUSCULOSKELETAL: No clubbing, cyanosis, or edema. ASSESSMENT: 1. Gastroesophageal reflux disease PLAN: 1. 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 "Broken heart syndrome." Lower back stimulator. Last Myocardial Infarction Date:: 05/25/14 History of Any Multi-Drug Resistant Organisms: None Reported Past Surgical History: Adenoidectomy, Appendectomy, Back Surgery, Bowel R esection, Cholecystectomy, Heart Catheterization, Hernia Repair, Orthopedic Surgery, Tonsillectomy Additional Past Surgical History / Comment(s): EGD/colonoscopy, cardiac cath etrization X2, several back surgeries including laminectomy, spinous process removed T11 and T12/cage/arturo, bilateral arthroscopic knee surgeries, bilateral thumb surgeries with right titanium joint, left rotator cuff repair, several nasal polypectomies, pain procedures - RFA cervical/back, bilateral inguinal hernia repairs, right orchiectomy, diaphragmatic hernia repair, section of sigmoid colon removed, back stimulator put in left hip for back pain at [facility], right hand surgery. Past Anesthesia/Blood Transfusion Reactions: No Reported Reaction Past Psychological History: No Psychological Hx Reported Smoking Status: Former smoker Past Alcohol Use History: None Reported Additional Past Alcohol Use History / Comment(s): Started smoking in 1959 and quit in 2003, smoked 1 1/2ppd. Past Drug Use History: None Reported - Past Family History Father Family Medical History: Cancer Additional Family Medical History / Comment(s): Father of stomach ca at the age of 65 yrs. Mother Family Medical History: No Reported History Additional Family Medical History / Comment(s): Mother of "old age". She was 83 yrs old. Brother(s) Family Medical History: Cancer, Diabetes Mellitus Additional Family Medical History / Comment(s): Brain tumor. Sister(s) Family Medical History: Cancer, Diabetes Mellitus Additional Family Medical History / Comment(s): Sisters breast cancer. Medications and Allergies Home Medications Medication Instructions Recorded Confirmed Type Albuterol Nebulized [Ventolin 2.5 mg INHALATION QAM PRN 08/16/21 09/08/21 History Nebulized] Nitroglycerin Sl Tabs [Nitrostat] 0.4 mg SUBLINGUAL Q5M PRN 08/16/21 09/08/21 History Fluticasone Propion/Salmeterol 1 puff INHALATION DIRECTED PRN 09/08/21 09/08/21 History [Advair 500-50 Diskus] Fluticasone Propion/Salmeterol 1 puff INHALATION QAM 09/08/21 09/08/21 History [Advair 500-50 Diskus] Omeprazole [PriLOSEC] 40 mg PO QAM 09/08/21 09/08/21 History Allergies Allergy/AdvReac Type Severity Reaction Status Date / Time celecoxib [From Celebrex] Allergy Unknown Verified 09/08/21 09:16 Iodinated Contrast Media Allergy Anaphylaxis Verified 09/08/21 09:16 [Iodinated Contrast Media - IV Dye] iodine Allergy Anaphylaxis Verified 09/08/21 09:16 Penicillins Allergy Anaphylaxis Verified 09/08/21 09:16 Sulfa (Sulfonamide Allergy Anaphylaxis Verified 09/08/21 09:16 Antibiotics) tramadol Allergy Swelling Verified 09/08/21 09:16 fentanyl AdvReac Severe SEVERE Verified 09/08/21 09:16 MIGRAINES adhesive AdvReac tears skin Verified 09/08/21 09:16 banana AdvReac HEADACHE Verified 09/08/21 09:16 chocolate flavor AdvReac TRIGGERS Verified 09/08/21 09:16 MIGRAINE duloxetine [From Cymbalta] AdvReac Headaches Verified 09/08/21 09:16 gabapentin AdvReac Confusion Verified 09/08/21 09:16 Opioids - Morphine Analogues AdvReac Migraine Verified 09/08/21 09:16 Opioids-Meperidine and AdvReac Migraine Verified 09/08/21 09:16 Related peanut AdvReac TRIGGERS Verified 09/08/21 09:16 MIGRAINES tree nut [Nut] AdvReac HEADACHE Verified 09/08/21 09:16 yellow dye AdvReac HEADACHE Verified 09/08/21 09:16
[2021-09-11 08:04] VITALS: TEMP 97
[2021-09-11] MEDS ORDERED: PROPOFOL 10 MG/ML 20 ML VIAL IV ONE (08:17)
[2021-09-11] MEDS ORDERED: LIDOCAINE 2% INJ 20 MG/ML (2 ML VIAL) ONE (08:17)
--- NOTE | 2021-09-11 08:34 | P.PCN ---
Date of Procedure: 09/11/21 Description of Procedure: PREOPERATIVE DIAGNOSIS: Dysphagia. Esophageal stricture Esophageal dysmotility POSTOPERATIVE DIAGNOSIS: Dysphagia. Esophageal stricture Esophageal dysmotility OPERATION: Esophagogastroduodenoscopy with rigid dilator over the guidewire 54 Fr. SURGEON: Bonnie Padilla MD ANESTHESIA: MAC. INDICATIONS: The patient is a 76-year-old male who presents with a history of dysphagia. Benefits and risks of the procedure were described. Informed consent was obtained. DESCRIPTION: The patient was brought into the endoscopy suite and laid in the left lateral decubitus position. After a timeout was confirmed, the procedure was initiated. An Olympus gastroscope was passed and the stomach was entered. Mild gastritis was identified. The scope was advanced to the duodenum which was unremarkable. Next using an Salvadorean rigid dilator, a guidewire was placed through the ped iatric gastroscope. Next the scope was withdrawn. A 54-Portuguese rigid Salvadorean dilator was passed carefully along the posterior oropharynx to 50 cm and left in place for 2-3 minutes stretch. The dilator was withdrawn including the guidewire. The scope was reentered along the posterior oropharynx with no findings of full-thickness tear of the upper esophageal sphincter. No full-thickness injury was encountered. The GI tract was desufflated. The patient tolerated the procedure well. FINDINGS: Salvadorean rigid dilator 54-Portuguese completed. No hiatus hernia No LA grade A esophagitis. Tertiary consistent with presbyesophagus RECOMMENDATIONS: Upper endoscopy as needed Plan - Discharge Summary Discharge Rx Participant: No New Discharge Prescriptions: Continue Albuterol Nebulized [Ventolin Nebulized] 2.5 mg INHALATION QAM PRN PRN Reason: Shortness Of Breath Nitroglycerin Sl Tabs [Nitrostat] 0.4 mg SUBLINGUAL Q5M PRN PRN Reason: Chest Pain Omeprazole [PriLOSEC] 40 mg PO QAM Fluticasone Propion/Salmeterol [Advair 500-50 Diskus] 1 puff INHALATION DIRECTED PRN PRN Reason: COPD Fluticasone Propion/Salmeterol [Advair 500-50 Diskus] 1 puff INHALATION QAM Discharge Medication List Albuterol Nebulized [Ventolin Nebulized] 2.5 mg INHALATION QAM PRN 08/16/21 [History] Nitroglycerin Sl Tabs [Nitrostat] 0.4 mg SUBLINGUAL Q5M PRN 08/16/21 [History] Fluticasone Propion/Salmeterol [Advair 500-50 Diskus] 1 puff INHALATION DIRECTED PRN 09/08/21 [History] Fluticasone Propion/Salmeterol [Advair 500-50 Diskus] 1 puff INHALATION QAM 09/08/21 [History] Omeprazole [PriLOSEC] 40 mg PO QAM 09/08/21 [History] Follow up Appointment(s)/Referral(s): Bonnie Padilla MD [STAFF PHYSICIAN] - As Needed Patient Instructions/Handouts: Esophageal Dilation (DC) Activity/Diet/Wound Care/Special Instructions: Diet as tolerated Discharge Disposition: HOME SELF-CARE
[2021-09-11 08:38] VITALS: RESP 16
[2021-09-11 08:55] VITALS: BP 110/74; PULSE 88
== END 2021-09-11 09:15 | disposition home or self-care (01) ==
LOC: ORWHC2ENDO 07:11
PROVIDERS: ATTEND Surgery Plastic and Reconstructive Surgery
DX: K22.2 Esophageal obstruction (principal); K22.4 Dyskinesia of esophagus; K29.70 Gastritis, unspecified, without bleeding; K21.9 Gastro-esophageal reflux disease without esophagitis; J44.9 Chronic obstructive pulmonary disease, unspecified; Z88.5 Allergy status to narcotic agent; Z88.0 Allergy status to penicillin; Z88.2 Allergy status to sulfonamides; Z91.09 Other allergy status, other than to drugs and biological substances; Z88.6 Allergy status to analgesic agent; Z91.041 Radiographic dye allergy status; Z91.018 Allergy to other foods; Z91.010 Allergy to peanuts; Z79.51 Long term (current) use of inhaled steroids; Z79.899 Other long term (current) drug therapy; Z87.891 Personal history of nicotine dependence; Z80.0 Family history of malignant neoplasm of digestive organs; Z80.3 Family history of malignant neoplasm of breast; Z83.3 Family history of diabetes mellitus
CPT/HCPCS: 43248; J2704; J2001; 43249

== ENCOUNTER 2021-10-29 20:09 | Inpatient (IN) | payer MEDICARE ==
[2021-10-29] MEDS ORDERED: ACETAMINOPHEN TAB 500 MG TAB PO STA (20:57)
[2021-10-29] MEDS ORDERED: ONDANSETRON 4 MG/2 ML VIAL IVP STA (20:58)
--- NOTE | 2021-10-29 22:04 | XR ---
EXAMINATION TYPE: XR chest 2V DATE OF EXAM: 10/29/2021 COMPARISON: 09/18/2021 HISTORY: Fever TECHNIQUE: FINDINGS: There is poor inspiration. There is some infiltrate and atelectasis right lung base. There is elevated right diaphragm. There is neural stimulator in the thoracic spine. Left lung is fairly cl ear. No heart failure. The bony thorax is intact IMPRESSION: There is increasing infiltrate and atelectasis right lung base compared to old exam.
--- NOTE | 2021-10-29 22:08 | CT ---
EXAMINATION TYPE: CT brain wo con DATE OF EXAM: 10/29/2021 COMPARISON: 03/11/2018 HISTORY: headache, weakness, slurred speech x [address] DLP: 1114.4 mGycm Automated exposure control for dose reduction was used. There is mild cerebral atrophy. There is no mass effect or midline shift. No sign of intracranial hem orrhage. There is some mild hypodensity in the periventricular white matter. The calvarium is intact. IMPRESSION: No acute intracranial abnormality. No change compared to old exam.
[2021-10-29] MEDS: SODIUM CHLORIDE 0.9% 1,000 ML IV SCH (22:22)
[2021-10-29 22:53] LABS: Basophils # (A) 0.1 k/uL (0-0.2); Basophils % (A) 1 %; Eosinophils # (A) 0.2 k/uL (0-0.7); Eosinophils % (A) 2 %; HCT 45.5 % (39.0-53.0); HGB 14.4 gm/dL (13.0-17.5); Lymphocytes # (A) 0.9 k/uL (1.0-4.8); Lymphocytes % (A) 9 %; MCHC 31.7 g/dL (31.0-37.0); MCV 101.1 fL (80.0-100.0); Macrocytosis Slight; Mean Platelet Volume 8.4; Monocytes # (A) 0.5 k/uL (0-1.0); Monocytes % (A) 6 %; Neutrophils # (A) 8.1 k/uL (1.3-7.7); Neutrophils % (A) 81 %; Platelet Count 185 k/uL (150-450); RDW 13.7 % (11.5-15.5); WBC 9.9 k/uL (3.8-10.6)
[2021-10-29 23:09] LABS: INR 0.9 (<1.2); Prothrombin Time 9.8 sec (9.0-12.0)
[2021-10-29 23:11] LABS: ALT 20 U/L (4-49); AST 29 U/L (17-59); African American GFR (CKD) >90 (>60 ml/min/1.73 sqM); Albumin 3.9 g/dL (3.5-5.0); Alkaline Phosphatase 104 U/L (38-126); Blood Urea Nitrogen 17 mg/dL (9-20); Calcium 9.3 mg/dL (8.4-10.2); Carbon Dioxide 28 mmol/L (22-30); Glucose 93 mg/dL (74-99); Non-African American GFR(CKD) >90 (>60 ml/min/1.73 sqM); Total Bilirubin 1.4 mg/dL (0.2-1.3); Total Protein 6.5 g/dL (6.3-8.2)
--- NOTE | 2021-10-29 23:31 | ED ---
General Adult HPI - General Chief complaint: Weakness Stated complaint: Chest pain,Vomiting Time Seen by Provider: 10/29/21 20:40 Source: patient Mode of arrival: wheelchair Limitations: no limitations - History of Present Illness Initial comments: 76-year-old male with past medical history of COPD, bladder and testicular cancer in remission who presents to the emergency department with weakness, headache, nausea, vomiting and chest pain. at bedside provides the history. States that the patient has been sick since Saturday. She noted that he was more weak and slurring his speech. He has been sleeping excessively. Last night the patient began having nausea and vomiting. He is normally supposed to wear oxygen when he sleeps. He has been wearing the oxygen consistently as he has been short of breath. Also reports a cough. He follows with Dr. Medrano. Does have a history of angina with 2 cardiac catheterizations. No other alleviating, precipitating or modifying factors - Related Data Home Medications Medication Instructions Recorded Confirmed Albuterol Nebulized [Ventolin 2.5 mg INHALATION RT-BID PRN 08/16/21 10/30/21 Nebulized] Nitroglycerin Sl Tabs [Nitrostat] 0.4 mg SL Q5M PRN 08/16/21 10/30/21 Fluticasone Propion/Salmeterol 1 puff INHALATION RT-BID 09/08/21 10/30/21 [Advair 500-50 Diskus] Omeprazole [PriLOSEC] 40 mg PO DAILY 09/08/21 10/30/21 Albuterol Nebulized [Ventolin 2.5 mg INHALATION RT-BID 10/30/21 10/30/21 Nebulized] Ipratropium-Albuterol Nebulize 3 ml INHALATION RT-BID 10/30/21 10/30/21 [Duoneb 0.5 mg-3 mg/3 ml Soln] Ipratropium-Albuterol Nebulize 3 ml INHALATION RT-BID PRN 10/30/21 10/30/21 [Duoneb 0.5 mg-3 mg/3 ml Soln] Allergies Allergy/AdvReac Type Severity Reaction Status Date / Time celecoxib [From Celebrex] Allergy Unknown Verified 10/30/21 09:19 Iodinated Contrast Media Allergy Anaphylaxis Verified 10/30/21 09:19 [Iodinated Contrast Media - IV Dye] iodine Allergy Anaphylaxis Verified 10/30/21 09:19 Penicillins Allergy Anaphylaxis Verified 10/30/21 09:19 Sulfa (Sulfonamide Allergy Anaphylaxis Verified 10/30/21 09:19 Antibiotics) tramadol Allergy Swelling Verified 10/30/21 09:19 fentanyl AdvReac Severe SEVERE Verified 10/30/21 09:19 MIGRAINES adhesive AdvReac tears skin Verified 10/30/21 09:19 banana AdvReac HEADACHE Verified 10/30/21 09:19 chocolate flavor AdvReac TRIGGERS Verified 10/30/21 09:19 MIGRAINE duloxetine [From Cymbalta] AdvReac Headaches Verified 10/30/21 09:19 gabapentin AdvReac Confusion Verified 10/30/21 09:19 Opioids - Morphine Analogues AdvReac Migraine Verified 10/30/21 09:19 Opioids-Meperidine and AdvReac Migraine Verified 10/30/21 09:19 Related peanut AdvReac TRIGGERS Verified 10/30/21 09:19 MIGRAINES tree nut [Nut] AdvReac HEADACHE Verified 10/30/21 09:19 yellow dye AdvReac HEADACHE Verified 10/30/21 09:19 Review of Systems ROS Statement: Those systems with pertinent positive or pertinent negative responses have been documented in the HPI. ROS Other: All systems not noted in ROS Statement are negative. 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 "Broken heart syndrome." Lower back stimulator. Last Myocardial Infarction Date:: 05/25/14 History of Any Multi-Drug Resistant Organisms: None Reported Past Surgical History: Adenoidectomy, Appendectomy, Back Surgery, Bowel Resec tion, Cholecystectomy, Heart Catheterization, Hernia Repair, Orthopedic Surgery, Tonsillectomy Additional Past Surgical History / Comment(s): EGD/colonoscopy, cardiac cathetri zation X2, several back surgeries including laminectomy, spinous process removed T11 and T12/cage/arturo, bilateral arthroscopic knee surgeries, bilateral thumb surgeries with right titanium joint, left rotator cuff repair, several nasal polypectomies, pain procedures - RFA cervical/back, bilateral inguinal hernia repairs, right orchiectomy, diaphragmatic hernia repair, section of sigmoid colon removed, back stimulator put in left hip for back pain at [facility], right hand surgery. Past Anesthesia/Blood Transfusion Reactions: No Reported Reaction Past Psychological History: No Psychological Hx Reported Smoking Status: Former smoker Past Alcohol Use History: None Reported Past Drug Use History: None Reported - Past Family History Father Family Medical History: Cancer Additional Family Medical History / Comment(s): Father of stomach ca at the age of 65 yrs. Mother Family Medical History: No Reported History Additional Family Medical History / Comment(s): Mother of "old age". She was 83 yrs old. Brother(s) Family Medical History: Cancer, Diabetes Mellitus Additional Family Medical History / Comment(s): Brain tumor. Sister(s) Family Medical History: Cancer, Diabetes Mellitus Additional Family Medical History / Comment(s): Sisters breast cancer. General Exam Limitations: no limitations General appearance: alert, in no apparent distress, lethargic Head exam: Present: atraumatic, normocephalic, normal inspection Eye exam: Present: normal appearance, PERRL, EOMI. Absent: scleral icterus, con junctival injection, periorbital swelling ENT exam: Present: normal exam, mucous membranes dry Neck exam: Present: normal inspection. Absent: tenderness, meningismus, lymphadenopathy Respiratory exam: Present: rales (right lower lobe), decreased breath sounds. Absent: respiratory distress, wheezes, rhonchi, stridor Cardiovascular Exam: Present: normal rhythm, tachycardia, normal heart sounds. Absent: systolic murmur, diastolic murmur, rubs, gallop, clicks GI/Abdominal exam: Present: soft, normal bowel sounds. Absent: distended, tenderness, guarding, rebound, rigid Extremities exam: Present: normal inspection, full ROM, normal capillary refill. Absent: tenderness, pedal edema, joint swelling, calf tenderness Back exam: Present: normal inspection Neurological exam: Present: alert, oriented X3, CN II-XII intact Psychiatric exam: Present: normal affect, normal mood Skin exam: Present: warm, dry, intact, normal color. Absent: rash Course Vital Signs 10/29/21 10/29/21 10/30/21 20:12 21:15 01:15 Temperature 98.5 F Pulse Rate 103 H 99 86 Respiratory 18 20 18 Rate Blood Pressure 113/62 117/62 121/72 O2 Sat by Pulse 80 L 94 L 96 Oximetry 10/30/21 10/30/21 10/30/21 02:40 04:15 05:00 Temperature Pulse Rate 80 80 70 Respiratory 18 22 18 Rate Blood Pressure 148/75 104/68 126/61 O2 Sat by Pulse 96 93 L 94 L Oximetry 10/30/21 10/30/21 10/30/21 08:12 08:15 08:23 Temperature Pulse Rate 78 77 Respiratory Rate Blood Pressure O2 Sat by Pulse 97 Oximetry 10/30/21 09:00 Temperature 97.8 F Pulse Rate 74 Respiratory 18 Rate Blood Pressure 125/67 O2 Sat by Pulse 97 Oximetry EKG Findings - EKG Comments: EKG Findings:: EKG demonstrates significant artifact due to stimulator. A sinus rhythm with a rate of 100. OR interval 234. QRS 121. QTC 393. No acute ST segment elevations or depressions Medical Decision Making - Medical Decision Making Upon arrival patient is placed into room 15. A thorough history and physical exam is performed. Patient looks extremely fatigued however is able to answer questions appropriately. IV is established. He was given a dose of Tylenol, 4 mg of Zofran, 1500 mL of normal saline and started on 130 mL per hour. Labo ratory studies are conducted and reviewed. Covid is not detected. Chest x-ray does demonstrate infiltrates of the right lung base. CT of the brain demonstrates no acute intracranial abnormality. Blood cultures obtained the patient initiated on Levaquin. Recommended admission for which the patient was agreeable. Spoke with Dr. Han who agreed to admit the patient. - Lab Data Result diagrams: 11/01/21 07:06 11/01/21 07:06 Lab Results 10/29/21 10/29/21 10/29/21 Range/Units 20:57 22:13 22:13 WBC 9.9 (3.8-10.6) k/uL RBC 4.50 (4.30-5.90) m/uL Hgb 14.4 (13.0-17.5) gm/dL Hct 45.5 (39.0-53.0) % MCV 101.1 H (80.0-100.0) fL MCH 32.0 (25.0-35.0) pg MCHC 31.7 (31.0-37.0) g/dL RDW 13.7 (11.5-15.5) % Plt Count 185 (150-450) k/uL MPV 8.4 Neutrophils % 81 % Lymphocytes % 9 % Monocytes % 6 % Eosinophils % 2 % Basophils % 1 % Neutrophils # 8.1 H (1.3-7.7) k/uL Lymphocytes # 0.9 L (1.0-4.8) k/uL Monocytes # 0.5 (0-1.0) k/uL Eosinophils # 0.2 (0-0.7) k/uL Basophils # 0.1 (0-0.2) k/uL Macrocytosis Slight PT 9.8 (9.0-12.0) sec INR 0.9 (<1.2) APTT 25.0 (22.0-30.0) sec Sodium (137-145) mmol/L Potassium (3.5-5.1) mmol/L Chloride (98-107) mmol/L Carbon Dioxide (22-30) mmol/L Anion Gap mmol/L BUN (9-20) mg/dL Creatinine (0.66-1.25) mg/dL Est GFR (CKD-EPI)AfAm (>60 ml/min/1.73 sqM) Est GFR (CKD-EPI)NonAf (>60 ml/min/1.73 sqM) Glucose (74-99) mg/dL Plasma Lactic Acid Finesse (0.7-2.0) mmol/L Calcium (8.4-10.2) mg/dL Total Bilirubin (0.2-1.3) mg/dL AST (17-59) U/L ALT (4-49) U/L Alkaline Phosphatase (38-126) U/L Troponin I (0.000-0.034) ng/mL Total Protein (6.3-8.2) g/dL Albumin (3.5-5.0) g/dL Coronavirus (PCR) (Not Detectd) Influenza Type A RNA Not Detected (Not Detectd) Influenza Type B (PCR) Not Detected (Not Detectd) 10/29/21 10/29/21 10/29/21 Range/Units 22:13 22:13 22:13 WBC (3.8-10.6) k/uL RBC (4.30-5.90) m/uL Hgb (13.0-17.5) gm/dL Hct (39.0-53.0) % MCV (80.0-100.0) fL MCH (25.0-35.0) pg MCHC (31.0-37.0) g/dL RDW (11.5-15.5) % Plt Count (150-450) k/uL MPV Neutrophils % % Lymphocytes % % Monocytes % % Eosinophils % % Basophils % % Neutrophils # (1.3-7.7) k/uL Lymphocytes # (1.0-4.8) k/uL Monocytes # (0-1.0) k/uL Eosinophils # (0-0.7) k/uL Basophils # (0-0.2) k/uL Macrocytosis PT (9.0-12.0) sec INR (<1.2) APTT (22.0-30.0) sec Sodium 136 L (137-145) mmol/L Potassium 4.4 (3.5-5.1) mmol/L Chloride 97 L (98-107) mmol/L Carbon Dioxide 28 (22-30) mmol/L Anion Gap 11 mmol/L BUN 17 (9-20) mg/dL Creatinine 0.67 (0.66-1.25) mg/dL Est GFR (CKD-EPI)AfAm >90 (>60 ml/min/1.73 sqM) Est GFR (CKD-EPI)NonAf >90 (>60 ml/min/1.73 sqM) Glucose 93 (74-99) mg/dL Plasma Lactic Acid Finesse 1.1 (0.7-2.0) mmol/L Calcium 9.3 (8.4-10.2) mg/dL Total Bilirubin 1.4 H (0.2-1.3) mg/dL AST 29 (17-59) U/L ALT 20 (4-49) U/L Alkaline Phosphatase 104 (38-126) U/L Troponin I (0.000-0.034) ng/mL Total Protein 6.5 (6.3-8.2) g/dL Albumin 3.9 (3.5-5.0) g/dL Coronavirus (PCR) Not Detected (Not Detectd) Influenza Type A RNA (Not Detectd) Influenza Type B (PCR) (Not Detectd) 10/29/21 Range/Units 22:13 WBC (3.8-10.6) k/uL RBC (4.30-5.90) m/uL Hgb (13.0-17.5) gm/dL Hct (39.0-53.0) % MCV (80.0-100.0) fL MCH (25.0-35.0) pg MCHC (31.0-37.0) g/dL RDW (11.5-15.5) % Plt Count (150-450) k/uL MPV Neutrophils % % Lymphocytes % % Monocytes % % Eosinophils % % Basophils % % Neutrophils # (1.3-7.7) k/uL Lymphocytes # (1.0-4.8) k/uL Monocytes # (0-1.0) k/uL Eosinophils # (0-0.7) k/uL Basophils # (0-0.2) k/uL Macrocytosis PT (9.0-12.0) sec INR (<1.2) APTT (22.0-30.0) sec Sodium (137-145) mmol/L Potassium (3.5-5.1) mmol/L Chloride (98-107) mmol/L Carbon Dioxide (22-30) mmol/L Anion Gap mmol/L BUN (9-20) mg/dL Creatinine (0.66-1.25) mg/dL Est GFR (CKD-EPI)AfAm (>60 ml/min/1.73 sqM) Est GFR (CKD-EPI)NonAf (>60 ml/min/1.73 sqM) Glucose (74-99) mg/dL Plasma Lactic Acid Finesse (0.7-2.0) mmol/L Calcium (8.4-10.2) mg/dL Total Bilirubin (0.2-1.3) mg/dL AST (17-59) U/L ALT (4-49) U/L Alkaline Phosphatase (38-126) U/L Troponin I 0.091 H* (0.000-0.034) ng/mL Total Protein (6.3-8.2) g/dL Albumin (3.5-5.0) g/dL Coronavirus (PCR) (Not Detectd) Influenza Type A RNA (Not Detectd) Influenza Type B (PCR) (Not Detectd) Disposition Clinical Impression: COPD (chronic obstructive pulmonary disease), Hypoxia, Pneumonia, Headache, chronic migraine without aura Disposition: ADMITTED IP TO THIS HOSP Condition: Serious Is patient prescribed a controlled substance at d/c from ED?: No Time of Disposition: 00:16 Decision to Admit Reason: Admit from EC Decision Date: 10/30/21 Decision Time: 00:16
[2021-10-29 23:47] LABS: Anion Gap 11 mmol/L; Chloride 97 mmol/L (98-107); Potassium 4.4 mmol/L (3.5-5.1); Sodium 136 mmol/L (137-145)
[2021-10-29] MEDS ORDERED: LEVOFLOXACIN 750MG-D5W PMX 750 MG in DEXTROSE/WATER 1 150ML.BAG IVPB STA (23:51)
[2021-10-29] MEDS ORDERED: LEVOFLOXACIN 750MG-D5W PMX 750 MG in DEXTROSE/WATER 1 150ML.BAG IVPB ONE (23:53)
[2021-10-30] MEDS ORDERED: NALOXONE 0.4 MG/ML 1 ML VIAL IV PRN (00:14)
[2021-10-30] MEDS ORDERED: ASPIRIN 81 MG PO STA (01:47)
[2021-10-30] MEDS: SODIUM CHLORIDE 0.9% 1,000 ML IV SCH ×2 (02:46→16:15)
[2021-10-30] MEDS: ONDANSETRON 4 MG/2 ML VIAL IVP PRN (04:29)
[2021-10-30] MEDS: IPRATROPIUM-ALBUTEROL 3 ML NEB INHALATION SCH ×3 (06:02→19:22)
[2021-10-30] MEDS: SODIUM CHLORIDE 0.9% 500 ML 500 ML IV SCH (11:04)
[2021-10-30] MEDS ORDERED: ALBUTEROL NEBULIZED 2.5 MG/3 ML INHALATION PRN (11:11)
[2021-10-30] MEDS ORDERED: NITROGLYCERIN SL TABS 0.4 MG TAB SUBLINGUAL PRN (11:11)
[2021-10-30] MEDS ORDERED: IPRATROPIUM-ALBUTEROL 3 ML NEB INHALATION PRN (11:11)
[2021-10-30] MEDS: IBUPROFEN 400 MG TAB PO PRN (11:16)
[2021-10-30] MEDS ORDERED: PROCHLORPERAZINE INJ 10 MG/2 ML VIAL IVP PRN (11:22)
[2021-10-30] MEDS: CEFEPIME 2 GM in SODIUM CHLORIDE 0.9% 100 ML IVPB SCH ×2 (11:37→20:11)
--- NOTE | 2021-10-30 13:50 | P.CNPUL ---
History of Present Illness Consult date: 10/30/21 Reason for consult: dyspnea History of present illness: This is a 76-year-old male patient is coming in for generalized weakness, fatigue, nausea, increased cough and congestion worsening shortness of breath. He is known to have COPD and chronic right hemidiaphragmatic elevation and the patient has undergone previous plication. Nevertheless, this patient gets recurrent right lung pneumonia. The patient may have an underlying aspiration as the patient is known to have esophageal dysmotility and stricture and he has undergone a recent dilatation by general surgery. He may potentially have some recurrent aspiration. He is coming in with increased shortness of breath and cough. He is also having some nonspecific chest pain. 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 The patient has been followed up by [facility]. For now, the patient was advised about without edema 14.5. Normal clinical evaluation profile. Troponins are 0.09 0.09 and 0.08 respectively. Normal electrolytes. Normal renal function. COVID 19 testing was negative and influenza was also negative. He is currently on oxygen at 4 L. No altered mentation. Review of Systems Constitutional: Reports fatigue, Reports weakness, Denies chills, Denies fever Eyes: denies blurred vision, denies pain Ears, nose, mouth and throat: Denies headache, Denies sore throat Cardiovascular: Denies chest pain, Denies shortness of breath Respiratory: Reports cough with sputum, Reports dyspnea, Denies cough Gastrointestinal: Denies abdominal pain, Denies diarrhea, Denies nausea, Denies vomiting Musculoskeletal: Denies myalgias Integumentary: Denies pruritus, Denies rash Neurological: Denies numbness, Denies weakness Psychiatric: Denies anxiety, Denies depression Endocrine: Denies fatigue, Denies weight change Past Medical History Past Medical History: Cancer, Chest Pain / Angina, COPD, GERD/Reflux Additional Past Medical History / Comment(s): Hx bladder cancer 15 yrs ago, hx right testicular cancer - surgery & radiation 20+ yrs ago, occassional migraine s, hx hiatal hernia, hx gastritis, 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 "Broken heart syndrome." Lower back stimulator. Last Myocardial Infarction Date:: 05/25/14 History of Any Multi-Drug Resistant Organisms: None Reported Past Surgical History: Adenoidectomy, Appendectomy, Back Surgery, Bowel Resection, Cholecystectomy, Heart Catheterization, Hernia Repair, Orthopedic Surgery, Tonsillectomy Additional Past Surgical History / Comment(s): EGD/colonoscopy, cardiac cathetrization X2, several back surgeries including laminectomy, spinous process removed T11 and T12/cage/arturo, bilateral arthroscopic knee surgeries, bilateral thumb surgeries with right titanium joint, left rotator cuff repair, several nasal polypectomies, pain procedures - RFA cervical/back, bilateral inguinal hernia repairs, right orchiectomy, diaphragmatic hernia repair, section of sigmoid colon removed, back stimulator put in left hip for back pain at [facility], right hand surgery. Past Anesthesia/Blood Transfusion Reactions: No Reported Reaction Past Psychological History: No Psychological Hx Reported Smoking Status: Former smoker Past Alcohol Use History: None Reported Past Drug Use History: None Reported - Past Family History Father Family Medical History: Cancer Additional Family Medical History / Comment(s): Father of stomach ca at the age of 65 yrs. Mother Family Medical History: No Reported History Additional Family Medical History / Comment(s): Mother of "old age". She was 83 yrs old. Brother(s) Family Medical History: Cancer, Diabetes Mellitus Additional Family Medical History / Comment(s): Brain tumor. Sister(s) Family Medical History: Cancer, Diabetes Mellitus Additional Family Medical History / Comment(s): Sisters breast cancer. Medications and Allergies Home Medications Medication Instructions Recorded Confirmed Type RX: Albuterol Nebulized [Ventolin 2.5 mg INHALATION RT-BID PRN 08/16/21 10/30/21 History Nebulized] RX: Nitroglycerin Sl Tabs 0.4 mg SL Q5M PRN 08/16/21 10/30/21 History [Nitrostat] RX: Fluticasone Propion/Salmeterol 1 puff INHALATION RT-BID 09/08/21 10/30/21 History [Advair 500-50 Diskus] RX: Omeprazole [PriLOSEC] 40 mg PO DAILY 09/08/21 10/30/21 History Albuterol Nebulized [Ventolin 2.5 mg INHALATION RT-BID 10/30/21 10/30/21 History Nebulized] Ipratropium-Albuterol Nebulize 3 ml INHALATION RT-BID 10/30/21 10/30/21 History [Duoneb 0.5 mg-3 mg/3 ml Soln] Ipratropium-Albuterol Nebulize 3 ml INHALATION RT-BID PRN 10/30/21 10/30/21 History [Duoneb 0.5 mg-3 mg/3 ml Soln] Allergies Allergy/AdvReac Type Severity Reaction Status Date / Time celecoxib [From Celebrex] Allergy Unknown Verified 10/30/21 09:19 Iodinated Contrast Media Allergy Anaphylaxis Verified 10/30/21 09:19 [Iodinated Contrast Media - IV Dye] iodine Allergy Anaphylaxis Verified 10/30/21 09:19 Penicillins Allergy Anaphylaxis Verified 10/30/21 09:19 Sulfa (Sulfonamide Allergy Anaphylaxis Verified 10/30/21 09:19 Antibiotics) tramadol Allergy Swelling Verified 10/30/21 09:19 fentanyl AdvReac Severe SEVERE Verified 10/30/21 09:19 MIGRAINES adhesive AdvReac tears skin Verified 10/30/21 09:19 banana AdvReac HEADACHE Verified 10/30/21 09:19 chocolate flavor AdvReac TRIGGERS Verified 10/30/21 09:19 MIGRAINE duloxetine [From Cymbalta] AdvReac Headaches Verified 10/30/21 09:19 gabapentin AdvReac Confusion Verified 10/30/21 09:19 Opioids - Morphine Analogues AdvReac Migraine Verified 10/30/21 09:19 Opioids-Meperidine and AdvReac Migraine Verified 10/30/21 09:19 Related peanut AdvReac TRIGGERS Verified 10/30/21 09:19 MIGRAINES tree nut [Nut] AdvReac HEADACHE Verified 10/30/21 09:19 yellow dye AdvReac HEADACHE Verified 10/30/21 09:19 Physical Exam Vitals: Vital Signs Temp Pulse Resp BP Pulse Ox 10/30/21 09:00 97.8 F 74 18 125/67 97 10/30/21 08:23 77 10/30/21 08:15 97 10/30/21 08:12 78 10/30/21 05:00 70 18 126/61 94 L 10/30/21 04:15 80 22 104/68 93 L 10/30/21 02:40 80 18 148/75 96 10/30/21 01:15 86 18 121/72 96 10/29/21 21:15 99 20 117/62 94 L 10/29/21 20:12 98.5 F 103 H 18 113/62 80 L Intake and Output 10/29/21 10/30/21 10/30/21 22:59 06:59 14:59 Intake Total 30 Balance 30 Intake: Oral 30 Other: Weight 66.678 kg GENERAL EXAM: Alert, pleasant 76-year-old gentleman on 4 L nasal cannula, comfortable in no apparent distress. HEAD: Normocephalic. EYES: Normal reaction of pupils, equal size. NOSE: Clear with pink turbinates. THROAT: No erythema or exudates. NECK: No masses, no JVD. CHEST: No chest wall deformity. LUNGS: Equal air entry with no crackles, wheeze, rhonchi or dullness. Diminished. CVS: S1 and S2 normal with no audible murmur, regular rhythm. ABDOMEN: No hepatosplenomegaly, normal bowel sounds, no guarding or rigidity. SPINE: No scoliosis or deformity SKIN: No rashes CENTRAL NERVOUS SYSTEM: No focal deficits, tone is normal in all 4 extremities. EXTREMITIES: There is no peripheral edema. No clubbing, no cyanosis. Peripheral pulses are intact. Results - Laboratory Findings CBC and BMP: 10/29/21 22:13 10/29/21 22:13 ABG WBC 9.9 k/uL (3.8-10.6) 10/29/21 22:13 RBC 4.50 m/uL (4.30-5.90) 10/29/21 22:13 Hgb 14.4 gm/dL (13.0-17.5) 10/29/21 22:13 Hct 45.5 % (39.0-53.0) 10/29/21 22:13 MCV 101.1 fL (80.0-100.0) H 10/29/21 22:13 MCH 32.0 pg (25.0-35.0) 10/29/21 22:13 MCHC 31.7 g/dL (31.0-37.0) 10/29/21 22:13 RDW 13.7 % (11.5-15.5) 10/29/21 22:13 Plt Count 185 k/uL (150-450) 10/29/21 22:13 MPV 8.4 10/29/21 22:13 Neutrophils % 81 % 10/29/21 22:13 Lymphocytes % 9 % 10/29/21 22:13 Monocytes % 6 % 10/29/21 22:13 Eosinophils % 2 % 10/29/21 22:13 Basophils % 1 % 10/29/21 22:13 Neutrophils # 8.1 k/uL (1.3-7.7) H 10/29/21 22:13 Lymphocytes # 0.9 k/uL (1.0-4.8) L 10/29/21 22:13 Monocytes # 0.5 k/uL (0-1.0) 10/29/21 22:13 Eosinophils # 0.2 k/uL (0-0.7) 10/29/21 22:13 Basophils # 0.1 k/uL (0-0.2) 10/29/21 22:13 Macrocytosis Slight 10/29/21 22:13 PT 9.8 sec (9.0-12.0) 10/29/21 22:13 INR 0.9 (<1.2) 10/29/21 22:13 APTT 25.0 sec (22.0-30.0) 10/29/21 22:13 Sodium 136 mmol/L (137-145) L 10/29/21 22:13 Potassium 4.4 mmol/L (3.5-5.1) 10/29/21 22:13 Chloride 97 mmol/L (98-107) L 10/29/21 22:13 Carbon Dioxide 28 mmol/L (22-30) 10/29/21 22:13 Anion Gap 11 mmol/L 10/29/21 22:13 BUN 17 mg/dL (9-20) 10/29/21 22:13 Creatinine 0.67 mg/dL (0.66-1.25) 10/29/21 22:13 Est GFR (CKD-EPI)AfAm >90 (>60 ml/min/1.73 sqM) 10/29/21 22:13 Est GFR (CKD-EPI)NonAf >90 (>60 ml/min/1.73 sqM) 10/29/21 22:13 Glucose 93 mg/dL (74-99) 10/29/21 22:13 Plasma Lactic Acid Finesse 1.1 mmol/L (0.7-2.0) 10/29/21 22:13 Calcium 9.3 mg/dL (8.4-10.2) 10/29/21 22:13 Total Bilirubin 1.4 mg/dL (0.2-1.3) H 10/29/21 22:13 AST 29 U/L (17-59) 10/29/21 22:13 ALT 20 U/L (4-49) 10/29/21 22:13 Alkaline Phosphatase 104 U/L (38-126) 10/29/21 22:13 Troponin I 0.085 ng/mL (0.000-0.034) H* 10/30/21 04:01 Total Protein 6.5 g/dL (6.3-8.2) 10/29/21 22:13 Albumin 3.9 g/dL (3.5-5.0) 10/29/21 22:13 Coronavirus (PCR) Not Detected (Not Detectd) 10/29/21 22:13 Influenza Type A RNA Not Detected (Not Detectd) 10/29/21 20:57 Influenza Type B (PCR) Not Detected (Not Detectd) 10/29/21 20:57 PT/INR, D-dimer PT 9.8 sec (9.0-12.0) 10/29/21 22:13 INR 0.9 (<1.2) 10/29/21 22:13 Abnormal lab findings: Abnormal Labs 10/29/21 10/29/21 10/29/21 22:13 22:13 22:13 MCV 101.1 H Neutrophils # 8.1 H Lymphocytes # 0.9 L Sodium 136 L Chloride 97 L Total Bilirubin 1.4 H Troponin I 0.091 H* 10/30/21 10/30/21 01:35 04:01 MCV Neutrophils # Lymphocytes # Sodium Chloride Total Bilirubin Troponin I 0.094 H* 0.085 H* - Diagnostic Findings Chest x-ray: image reviewed Assessment and Plan Plan: Acute right lower lobe pneumonia with a possibly component of CHF. Findings are more consistent with pneumonia, rule out aspiration specially the patient is having chronic issues with dysphagia and swallowing. The patient will be covered with broad-spectrum antibiotics Acute hypoxic respiratory failure currently on 40s about 2 by nasal cannula Dysphagia, Esophageal stricture, Esophageal dysmotility, undergone a recent esophageal dilatation Acute exacerbation of chronic obstructive pulmonary disease, secondary to above Advanced COPD with an FEV1 value of 43% of predicted, intolerant to Trelegy, remains on Advair and albuterol in the outpatient setting Atypical chest pain, abnormal troponins, nonocclusive CAD based on recent catheterization History of right hemidiaphragmatic paralysis post plication History of bladder cancer with excision of tumor History of migraines History of Diego's palsy History of Takusubo syndrome, The patient had a cardiac catheterization back in February 2021 and the patient was found to have mild/minimal COPD and he was given possible diagnosis of takasubo , his ejection fraction was around 35-40%. He had significant wall motion abnormalities. History of bowel resection Former smoker Multiple orthopedic surgeries Plan Continue gentle hydration with IV fluids and the patient will be kept at 75 mL an hour as the patient is having significant emesis on and off and the patient will be given a Compazine. Start the patient IV cefepime and Levaquin No need for diuretics at this point in time DuoNeb nebulized units on the clock Aspiration precautions Swallow evaluation later stage Lovenox 40 prophylaxis We'll continue to follow
--- NOTE | 2021-10-30 14:19 | P.HPIM ---
History of Present Illness 76-year-old male came in with complaints of generalized weakness cough congestion and worsening shortness of breath patient had history of esophageal dysmotility with strictures and multiple pneumonias in the past. Patient is found to have infiltrate in the right lower lung castellanos computed tomography scan is being obtained appears to have pneumonia. Patient also has history of congestive heart failure with EF of around 30-35% patient is presently receiving 4 L of oxygen. COVID-19 and influenza testing was negative was negative. Troponin is minimally elevated. Patient is presently on cefepime and tolerating it very well. Patient usually uses 2 L of oxygen at home. REVIEW OF SYSTEMS: CONSTITUTIONAL: No fever, no malaise, no fatigue. HEENT: No recent visual problems or hearing problems. Denied any sore throat. CARDIOVASCULAR: No orthopnea, PND, no palpitations, no syncope. PULMONARY: no hemoptysis. GASTROINTESTINAL: No diarrhea, no nausea, no vomiting, no abdominal pain. NEUROLOGICAL: No headaches, no weakness, no numbness. HEMATOLOGICAL: Denies any bleeding or petechiae. GENITOURINARY: Denies any burning micturition, frequency, or urgency. MUSCULOSKELETAL/RHEUMATOLOGICAL: Denies any joint pain, swelling, or any muscle pain. ENDOCRINE: Denies any polyuria or polydipsia. The rest of the 14-point review of systems is negative. PHYSICAL EXAMINATION: GENERAL: The patient is alert and oriented x3, not in any acute distress. Well developed, well nourished. HEENT: Pupils are round and equally reacting to light. EOMI. No scleral icterus. No conjunctival pallor. Normocephalic, atraumatic. No pharyngeal erythema. No thyromegaly. CARDIOVASCULAR: S1 and S2 present. No murmurs, rubs, or gallops. PULMONARY: Chest is clear to auscultation, no wheezing or crackles. ABDOMEN: Soft, nontender, nondistended, normoactive bowel sounds. No palpable organomegaly. MUSCULOSKELETAL: No joint swelling or deformity. EXTREMITIES: No cyanosis, clubbing, or pedal edema. NEUROLOGICAL: Gross neurological examination did not reveal any focal deficits. SKIN: No rashes. Assessment and plan -#Breath acute on chronic hypoxic respiratory failure secondary to possible pneumonia with a competent of CHF. We'll obtain a BNP continue with the broad- spectrum antibiotic very cefepime -Dysphagia esophagus stricture any suicidal dysmotility status post dilatation OCG or during his previous hospitalizations -COPD with mild acute exacerbation continue with inhaled steroids and inhalational treatments patient doesn't have much of wheezing -Mild troponin elevation: Secondary to pneumonia -History of migraine DVT prophylaxis: Lovenox Past Medical History Past Medical History: Cancer, Chest Pain / Angina, COPD, GERD/Reflux Additional Past Medical History / Comment(s): Hx bladder cancer 15 yrs ago, hx right testicular cancer - surgery & radiation 20+ yrs ago, occassional migraines, hx hiatal hernia, hx gastritis, 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 "Broken heart syndrome." Lower back stimulator. Last Myocardial Infarction Date:: 05/25/14 History of Any Multi-Drug Resistant Organisms: None Reported Past Surgical History: Adenoidectomy, Appendectomy, Back Surgery, Bowel Resection, Cholecystectomy, Heart Catheterization, Hernia Repair, Orthopedic Surgery, Tonsillectomy Additional Past Surgical History / Comment(s): EGD/colonoscopy, cardiac cathetrization X2, several back surgeries including laminectomy, spinous process removed T11 and T12/cage/arturo, bilateral arthroscopic knee surgeries, bilateral thumb surgeries with right titanium joint, left rotator cuff repair, several nasal polypectomies, pain procedures - RFA cervical/back, bilateral inguinal hernia repairs, right orchiectomy, diaphragmatic hernia repair, section of sigm oid colon removed, back stimulator put in left hip for back pain at [facility], right hand surgery. Past Anesthesia/Blood Transfusion Reactions: No Reported Reaction Past Psychological History: No Psychological Hx Reported Smoking Status: Former smoker Past Alcohol Use History: None Reported Past Drug Use History: None Reported - Past Family History Father Family Medical History: Cancer Additional Family Medical History / Comment(s): Father of stomach ca at the age of 65 yrs. Mother Family Medical History: No Reported History Additional Family Medical History / Comment(s): Mother of "old age". She was 83 yrs old. Brother(s) Family Medical History: Cancer, Diabetes Mellitus Additional Family Medical History / Comment(s): Brain tumor. Sister(s) Family Medical History: Cancer, Diabetes Mellitus Additional Family Medical History / Comment(s): Sisters breast cancer. Medications and Allergies Home Medications Medication Instructions Recorded Confirmed Type Albuterol Nebulized [Ventolin 2.5 mg INHALATION RT-BID PRN 08/16/21 10/30/21 History Nebulized] Nitroglycerin Sl Tabs [Nitrostat] 0.4 mg SL Q5M PRN 08/16/21 10/30/21 History Fluticasone Propion/Salmeterol 1 puff INHALATION RT-BID 09/08/21 10/30/21 History [Advair 500-50 Diskus] Omeprazole [PriLOSEC] 40 mg PO DAILY 09/08/21 10/30/21 History Albuterol Nebulized [Ventolin 2.5 mg INHALATION RT-BID 10/30/21 10/30/21 History Nebulized] Ipratropium-Albuterol Nebulize 3 ml INHALATION RT-BID 10/30/21 10/30/21 History [Duoneb 0.5 mg-3 mg/3 ml Soln] Ipratropium-Albuterol Nebulize 3 ml INHALATION RT-BID PRN 10/30/21 10/30/21 History [Duoneb 0.5 mg-3 mg/3 ml Soln] Allergies Allergy/AdvReac Type Severity Reaction Status Date / Time celecoxib [From Celebrex] Allergy Unknown Verified 10/30/21 09:19 Iodinated Contrast Media Allergy Anaphylaxis Verified 10/30/21 09:19 [Iodinated Contrast Media - IV Dye] iodine Allergy Anaphylaxis Verified 10/30/21 09:19 Penicillins Allergy Anaphylaxis Verified 10/30/21 09:19 Sulfa (Sulfonamide Allergy Anaphylaxis Verified 10/30/21 09:19 Antibiotics) tramadol Allergy Swelling Verified 10/30/21 09:19 fentanyl AdvReac Severe SEVERE Verified 10/30/21 09:19 MIGRAINES adhesive AdvReac tears skin Verified 10/30/21 09:19 banana AdvReac HEADACHE Verified 10/30/21 09:19 chocolate flavor AdvReac TRIGGERS Verified 10/30/21 09:19 MIGRAINE duloxetine [From Cymbalta] AdvReac Headaches Verified 10/30/21 09:19 gabapentin AdvReac Confusion Verified 10/30/21 09:19 Opioids - Morphine Analogues AdvReac Migraine Verified 10/30/21 09:19 Opioids-Meperidine and AdvReac Migraine Verified 10/30/21 09:19 Related peanut AdvReac TRIGGERS Verified 10/30/21 09:19 MIGRAINES tree nut [Nut] AdvReac HEADACHE Verified 10/30/21 09:19 yellow dye AdvReac HEADACHE Verified 10/30/21 09:19 Physical Exam Vitals: Vital Signs Temp Pulse Resp BP Pulse Ox 10/30/21 09:00 97.8 F 74 18 125/67 97 10/30/21 08:23 77 10/30/21 08:15 97 10/30/21 08:12 78 10/30/21 05:00 70 18 126/61 94 L 10/30/21 04:15 80 22 104/68 93 L 10/30/21 02:40 80 18 148/75 96 10/30/21 01:15 86 18 121/72 96 10/29/21 21:15 99 20 117/62 94 L 10/29/21 20:12 98.5 F 103 H 18 113/62 80 L Intake and Output 10/29/21 10/30/21 10/30/21 22:59 06:59 14:59 Intake Total 30 Balance 30 Intake: Oral 30 Other: Weight 66.678 kg Results CBC & Chem 7: 10/29/21 22:13 10/29/21 22:13 Labs: Abnormal Lab Results - Last 24 Hours (Table) 10/29/21 10/29/21 10/29/21 Range/Units 22:13 22:13 22:13 MCV 101.1 H (80.0-100.0) fL Neutrophils # 8.1 H (1.3-7.7) k/uL Lymphocytes # 0.9 L (1.0-4.8) k/uL Sodium 136 L (137-145) mmol/L Chloride 97 L (98-107) mmol/L Total Bilirubin 1.4 H (0.2-1.3) mg/dL Troponin I 0.091 H* (0.000-0.034) ng/mL 10/30/21 10/30/21 Range/Units 01:35 04:01 MCV (80.0-100.0) fL Neutrophils # (1.3-7.7) k/uL Lymphocytes # (1.0-4.8) k/uL Sodium (137-145) mmol/L Chloride (98-107) mmol/L Total Bilirubin (0.2-1.3) mg/dL Troponin I 0.094 H* 0.085 H* (0.000-0.034) ng/mL
[2021-10-30 15:48] LABS: Appearance,Urine Clear (Clear); Bilirubin,Urine Negative (Negative); Blood,Urine Negative (Negative); Color,Urine Yellow; Glucose,Urine (UA) Negative (Negative); Ketones,Urine 3+ (Negative); Leukocyte Esterase,Urine Negative (Negative); Nitrite,Urine Negative (Negative); PH, Urine 5.5 (5.0-8.0); Protein,Urine Trace (Negative); Urobilinogen,Urine <2.0 mg/dL (<2.0)
[2021-10-30] MEDS: SYMBICORT 160-4.5 MCG INHALER INHALATION SCH (19:22)
[2021-10-30] MEDS ORDERED: ALBUTEROL NEBULIZED 2.5 MG/3 ML INHALATION SCH (20:00)
[2021-10-30] MEDS: ACETAMINOPHEN TAB 325 MG TAB PO PRN (20:10)
[2021-10-30] MEDS ORDERED: LEVOFLOXACIN 500 MG TAB PO SCH (21:00)
[2021-10-31] MEDS: ACETAMINOPHEN TAB 325 MG TAB PO PRN ×2 (02:20→07:28)
[2021-10-31] MEDS: CEFEPIME 2 GM in SODIUM CHLORIDE 0.9% 100 ML IVPB SCH ×2 (07:28→21:00)
[2021-10-31] MEDS: PANTOPRAZOLE 40 MG TABLET PO SCH (07:28)
[2021-10-31] MEDS: ENOXAPARIN 40 MG/0.4 ML SYRINGE SQ SCH (07:28)
[2021-10-31] MEDS: ONDANSETRON 4 MG/2 ML VIAL IVP PRN (07:32)
[2021-10-31] MEDS: IPRATROPIUM-ALBUTEROL 3 ML NEB INHALATION SCH ×2 (08:14→20:27)
[2021-10-31] MEDS: SYMBICORT 160-4.5 MCG INHALER INHALATION SCH ×2 (08:14→20:27)
--- NOTE | 2021-10-31 08:34 | P.PN ---
Subjective Progress Note Date: 10/31/21 Principal diagnosis: Pneumonia. This is 76-year-old white male essentially admitted for acute respiratory distress found have lower pneumonia. The patient seems quite tired. No voiding symptoms. He is answering follow commands appropriately Objective - Vital Signs Vital signs: Vital Signs Temp 98.1 F 10/31/21 07:17 Pulse 76 10/31/21 07:17 Resp 17 10/31/21 07:17 BP 149/84 10/31/21 07:17 Pulse Ox 96 10/31/21 07:17 FiO2 Intake & Output 10/30/21 10/31/21 10/31/21 18:59 06:59 18:59 Intake Total 805 Output Total 600 Balance 205 Intake: Intake, IV Titration 775 Amount Cefepime 2 gm In Sodium 100 Chloride 0.9% 100 ml @ 25 mls/hr IVPB Q12HR [facility] Rx #:[id number] Sodium Chloride 0.9% 1, 675 000 ml @ 75 mls/hr IV . [id number] [facility] Rx#:[id number] Oral 30 Output: Urine 600 Other: # Voids 1 1 - Constitutional General appearance: Present: thin - EENT Eyes: Absent: abnormal pupil - Neck Neck: Absent: lymphadenopathy - Respiratory Respiratory: bilateral: diminished - Cardiovascular Rhythm: regular Heart sounds: normal: S1, S2 Abnormal Heart Sounds: Absent: S3 Gallop - Gastrointestinal General gastrointestinal: Present: soft. Absent: tenderness - Integumentary Integumentary: Absent: cellulitis - Labs CBC & Chem 7: 10/29/21 22:13 10/29/21 22:13 Labs: Abnormal Lab Results - Last 24 Hours (Table) 10/30/21 Range/Units 15:23 Urine Protein Trace H (Negative) Urine Ketones 3+ H (Negative) Microbiology - Last 24 Hours (Table) 10/29/21 22:13 Blood Culture - Preliminary Blood No Growth after 24 hours Assessment and Plan (1) COPD (chronic obstructive pulmonary disease) Current Visit: Yes Status: Acute Code(s): J44.9 - CHRONIC OBSTRUCTIVE PULMONARY DISEASE, UNSPECIFIED SNOMED Code(s): 40023690 (2) Hypoxia Current Visit: Yes Status: Acute Code(s): R09.02 - HYPOXEMIA SNOMED Code(s): 094774017 (3) Pneumonia Current Visit: Yes Status: Acute Code(s): J18.9 - PNEUMONIA, UNSPECIFIED ORGANISM SNOMED Code(s): 487701348 (4) Headache, chronic migraine without aura Current Visit: Yes Status: Chronic Code(s): G43.709 - CHRONIC MIGRAINE W/O AURA, NOT INTRACTABLE, W/O STAT MIGR SNOMED Code(s): 63087323 Plan: Continue current regimen of treatment. Appreciate pulmonology input. Check CBC and CMP in a.m. Continue respiratory support
[2021-10-31 11:13] LABS: African American GFR (CKD) 106.2 (60.0-200.0); Anion Gap 9.7 mmol/L (10.00-18.00); BUN/Creat Ratio 18.29 Ratio (12.00-20.00); Blood Urea Nitrogen 12.8 mg/dL (9.0-27.0); Calcium 9.1 mg/dL (8.7-10.3); Carbon Dioxide 27.3 mmol/L (20.0-27.5); Non-African American GFR(CKD) 91.7 (60.0-200.0); Potassium 4.7 mmol/L (3.5-5.5)
[2021-10-31] MEDS: IBUPROFEN 400 MG TAB PO PRN (11:32)
[2021-10-31] MEDS ORDERED: ACETAMINOPHEN TAB 325 MG TAB ONE (15:54)
--- NOTE | 2021-10-31 21:25 | P.PN ---
Subjective Progress Note Date: 10/31/21 This is a 76-year-old male patient is coming in for generalized weakness, fatigue, nausea, increased cough and congestion worsening shortness of breath. He is known to have COPD and chronic right hemidiaphragmatic elevation and the patient has undergone previous plication. Nevertheless, this patient gets recurrent right lung pneumonia. The patient may have an underlying aspiration as the patient is known to have esophageal dysmotility and stricture and he has undergone a recent dilatation by general surgery. He may potentially have some recurrent aspiration. He is coming in with increased shortness of breath and cough. He is also having some nonspecific chest pain. 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 The patient has been followed up by cardiology As [facility]. For now, the patient was advised about without edema 14.5. Normal clinical evaluation profile. Troponins are 0.09 0.09 and 0.08 respectively. Normal electrolytes. Normal renal function. COVID 19 testing was negative and influenza was also negative. He is currently on oxygen at 4 L. No altered mentation. The patient is seen today 10/31/2021 in follow-up on the regular medical floor. He is awake and alert in no acute distress. Maintaining O2 saturations in the 90s on 4 L/m per nasal cannula. No worsening shortness of breath, cough or congestion. Improved but not quite back to his baseline. He is continued on Symbicort, DuoNeb inhalations, Lovenox. Antibiotics in the form of cefepime. Blood cultures reveal no growth to date. Sodium 137. Potassium 4.7. BUN 13. Creatinine 0.7. Objective - Vital Signs Vital signs: Vital Signs Temp 98.3 F 10/31/21 20:00 Pulse 73 10/31/21 20:00 Resp 16 10/31/21 20:00 BP 152/62 10/31/21 20:00 Pulse Ox 99 10/31/21 20:00 FiO2 Intake & Output 10/31/21 10/31/21 11/01/21 06:59 18:59 06:59 Other: Voiding Method Urinal # Voids 1 - Exam GENERAL EXAM: Alert, pleasant 76-year-old gentleman on 4 L nasal cannula, comfortable in no apparent distress. HEAD: Normocephalic. EYES: Normal reaction of pupils, equal size. NOSE: Clear with pink turbinates. THROAT: No erythema or exudates. NECK: No masses, no JVD. CHEST: No chest wall deformity. LUNGS: Equal air entry with no crackles, wheeze, rhonchi or dullness. Diminished. CVS: S1 and S2 normal with no audible murmur, regular rhythm. ABDOMEN: No hepatosplenomegaly, normal bowel sounds, no guarding or rigidity. SPINE: No scoliosis or deformity SKIN: No rashes CENTRAL NERVOUS SYSTEM: No focal deficits, tone is normal in all 4 extremities. EXTREMITIES: There is no peripheral edema. No clubbing, no cyanosis. Peripheral pulses are intact. - Labs CBC & Chem 7: 10/29/21 22:13 10/31/21 06:54 Labs: Abnormal Lab Results - Last 24 Hours (Table) 10/31/21 Range/Units 06:54 Anion Gap 9.70 L (10.00-18.00) mmol/L Microbiology - Last 24 Hours (Table) 10/29/21 22:13 Blood Culture - Preliminary Blood No Growth after 24 hours Assessment and Plan Assessment: Acute right lower lobe pneumonia with a possibly component of CHF. Findings are more consistent with pneumonia, rule out aspiration specially the patient is having chronic issues with dysphagia and swallowing. The patient will be covered with broad-spectrum antibiotics Acute hypoxic respiratory failure currently on 40s about 2 by nasal cannula Dysphagia, Esophageal stricture, Esophageal dysmotility, undergone a recent esophageal dilatation Acute exacerbation of chronic obstructive pulmonary disease, secondary to above Advanced COPD with an FEV1 value of 43% of predicted, intolerant to Trelegy, remains on Advair and albuterol in the outpatient setting Atypical chest pain, abnormal troponins, nonocclusive CAD based on recent catheterization History of right hemidiaphragmatic paralysis post plication History of bladder cancer with excision of tumor History of migraines History of Diego's palsy History of Takusubo syndrome, The patient had a cardiac catheterization back in February 2021 and the patient was found to have mild/minimal COPD and he was given possible diagnosis of takasubo , his ejection fraction was around 35-40%. He had significant wall motion abnormalities. History of bowel resection Former smoker Multiple orthopedic surgeries Plan The patient was seen and evaluated He is improved but not quite back to his baseline Currently on 4 L nasal cannula Titrate the FiO2 as tolerated Continue Symbicort and DuoNeb inhalations Lovenox for DVT prophylaxis Increase his activity as tolerated We'll continue to follow I have personally seen and examined the patient, performed the documentation and the assessment and plan as written. Number of minutes spent on the visit: 10.
[2021-11-01] MEDS: ACETAMINOPHEN TAB 325 MG TAB PO PRN (00:20)
[2021-11-01] MEDS: IPRATROPIUM-ALBUTEROL 3 ML NEB INHALATION SCH ×2 (07:16→19:45)
[2021-11-01] MEDS: SYMBICORT 160-4.5 MCG INHALER INHALATION SCH ×2 (07:16→19:46)
[2021-11-01] MEDS: CEFEPIME 2 GM in SODIUM CHLORIDE 0.9% 100 ML IVPB SCH ×3 (07:39→23:59)
[2021-11-01] MEDS: PANTOPRAZOLE 40 MG TABLET PO SCH (07:39)
[2021-11-01] MEDS: ENOXAPARIN 40 MG/0.4 ML SYRINGE SQ SCH (07:39)
--- NOTE | 2021-11-01 08:41 | P.PN ---
Subjective Principal diagnosis: Pneumonia. This is 76-year-old white male essentially admitted for acute respiratory distress found have lower pneumonia. The patient seems quite tired. No voiding symptoms. He is answering follow commands appropriately Objective - Vital Signs Vital signs: Vital Signs Temp 98.2 F 11/01/21 07:20 Pulse 80 11/01/21 07:20 Resp 16 11/01/21 07:20 BP 117/69 11/01/21 07:20 Pulse Ox 100 11/01/21 07:20 FiO2 Intake & Output 10/31/21 11/01/21 11/01/21 18:59 06:59 18:59 Output Total 730 Balance -730 Output: Urine 730 Other: Voiding Method Urinal Urinal # Voids 4 - Constitutional General appearance: Present: cooperative - EENT Eyes: Absent: abnormal pupil - Neck Neck: Absent: lymphadenopathy - Respiratory Respiratory: bilateral: diminished - Cardiovascular Rhythm: regular Heart sounds: normal: S1, S2 Abnormal Heart Sounds: Absent: S3 Gallop - Gastrointestinal General gastrointestinal: Absent: tenderness - Integumentary Integumentary: Absent: cellulitis - Labs CBC & Chem 7: 10/29/21 22:13 10/31/21 06:54 Labs: Abnormal Lab Results - Last 24 Hours (Table) 10/31/21 Range/Units 06:54 Anion Gap 9.70 L (10.00-18.00) mmol/L Microbiology - Last 24 Hours (Table) 10/29/21 22:13 Blood Culture - Preliminary Blood No Growth after 48 hours Assessment and Plan (1) COPD (chronic obstructive pulmonary disease) Current Visit: Yes Status: Acute Code(s): J44.9 - CHRONIC OBSTRUCTIVE PULMONARY DISEASE, UNSPECIFIED SNOMED Code(s): 59615323 (2) Hypoxia Current Visit: Yes Status: Acute Code(s): R09.02 - HYPOXEMIA SNOMED Code(s): 519288413 (3) Pneumonia Current Visit: Yes Status: Acute Code(s): J18.9 - PNEUMONIA, UNSPECIFIED ORGANISM SNOMED Code(s): 458603993 (4) Headache, chronic migraine without aura Current Visit: Yes Status: Chronic Code(s): G43.709 - CHRONIC MIGRAINE W/O AURA, NOT INTRACTABLE, W/O STAT MIGR SNOMED Code(s): 95724415 Plan: Continue current regimen of treatment. Appreciate pulmonology input. Check CBC and CMP in a.m. Continue respiratory support
[2021-11-01 10:45] LABS: HCT 40.1 % (39.6-50.0); HGB 13.2 g/dL (13.0-17.0); MCH 33.2 pg (27.0-32.0); MCHC 32.9 g/dL (32.0-37.0); Mean Platelet Volume 11.2 fL (9.5-12.2); NRBC Per 100 WBC 0 /100 WBCS (0.0-0.0); Platelet Count 194 X 10*3/uL (140-440); RBC 3.97 X 10*6/uL (4.40-5.60); RDW 13.1 % (11.5-14.5)
[2021-11-01 10:51] LABS: African American GFR (CKD) 106.2 (60.0-200.0); Albumin 3.7 g/dL (3.8-4.9); Albumin/Globulin Ratio 1.76 (1.60-3.17); Anion Gap 11.8 mmol/L (10.00-18.00); BUN/Creat Ratio 12.86 Ratio (12.00-20.00); Calcium 9.3 mg/dL (8.7-10.3); Carbon Dioxide 28.2 mmol/L (20.0-27.5); Globulin 2.1 g/dL (1.6-3.3); Non-African American GFR(CKD) 91.7 (60.0-200.0); Potassium 4.5 mmol/L (3.5-5.5); Total Bilirubin 0.6 mg/dL (0.30-1.20); Total Protein 5.8 g/dL (6.2-8.2)
--- NOTE | 2021-11-01 13:32 | P.PN ---
Subjective Progress Note Date: 11/01/21 This is a 76-year-old male patient is coming in for generalized weakness, fatigue, nausea, increased cough and congestion worsening shortness of breath. He is known to have COPD and chronic right hemidiaphragmatic elevation and the patient has undergone previous plication. Nevertheless, this patient gets recurrent right lung pneumonia. The patient may have an underlying aspiration as the patient is known to have esophageal dysmotility and stricture and he has undergone a recent dilatation by general surgery. He may potentially have some recurrent aspiration. He is coming in with increased shortness of breath and cough. He is also having some nonspecific chest pain. 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 The patient has been followed up by cardiology [facility]. For now, the patient was advised about without edema 14.5. Normal clinical evaluation profile. Troponins are 0.09 0.09 and 0.08 respectively. Normal electrolytes. Normal renal function. COVID 19 testing was negative and influenza was also negative. He is currently on oxygen at 4 L. No altered mentation. The patient is seen today 10/31/2021 in follow-up on the regular medical floor. He is awake and alert in no acute distress. Maintaining O2 saturations in the 90s on 4 L/m per nasal cannula. No worsening shortness of breath, cough or congestion. Improved but not quite back to his baseline. He is continued on Symbicort, DuoNeb inhalations, Lovenox. Antibiotics in the form of cefepime. Blood cultures reveal no growth to date. Sodium 137. Potassium 4.7. BUN 13. Creatinine 0.7. Patient is seen today 11/01/2021 in follow-up on the regular medical floor. He is currently sitting up the bedside having lunch. Awake and alert in no acute distress. He did have a swallow evaluation done. He is tolerating his current diet. Earlier chest x-ray revealed atelectasis of the right lung base. Follow- up chest x-ray today is pending. He is maintaining O2 saturations up to 100% on 4 L/m per nasal cannula. Continue on cefepime. Remains on Symbicort and DuoNeb inhalations. Lovenox for DVT prophylaxis. Objective - Vital Signs Vital signs: Vital Signs Temp 98.2 F 11/01/21 07:20 Pulse 80 11/01/21 07:20 Resp 16 11/01/21 07:20 BP 117/69 11/01/21 07:20 Pulse Ox 100 11/01/21 07:20 FiO2 Intake & Output 10/31/21 11/01/21 11/01/21 18:59 06:59 18:59 Output Total 730 Balance -730 Output: Urine 730 Other: Voiding Method Urinal Urinal # Voids 4 - Exam GENERAL EXAM: Alert, pleasant 76-year-old gentleman on 4 L nasal cannula, comfortable in no apparent distress. HEAD: Normocephalic. EYES: Normal reaction of pupils, equal size. NOSE: Clear with pink turbinates. THROAT: No erythema or exudates. NECK: No masses, no JVD. CHEST: No chest wall deformity. LUNGS: Equal air entry with no crackles, wheeze, rhonchi or dullness. Diminished. CVS: S1 and S2 normal with no audible murmur, regular rhythm. ABDOMEN: No hepatosplenomegaly, normal bowel sounds, no guarding or rigidity. SPINE: No scoliosis or deformity SKIN: No rashes CENTRAL NERVOUS SYSTEM: No focal deficits, tone is normal in all 4 extremities. EXTREMITIES: There is no peripheral edema. No clubbing, no cyanosis. Peripheral pulses are intact. - Labs CBC & Chem 7: 11/01/21 07:06 11/01/21 07:06 Labs: Abnormal Lab Results - Last 24 Hours (Table) 11/01/21 11/01/21 Range/Units 07:06 07:06 RBC 3.97 L (4.40-5.60) X 10*6/uL MCV 101.0 H (80.0-97.0) fL MCH 33.2 H (27.0-32.0) pg Carbon Dioxide 28.2 H (20.0-27.5) mmol/L Total Protein 5.8 L (6.2-8.2) g/dL Albumin 3.7 L (3.8-4.9) g/dL Microbiology - Last 24 Hours (Table) 10/29/21 22:13 Blood Culture - Preliminary Blood No Growth after 48 hours Assessment and Plan Assessment: Acute right lower lobe pneumonia with a possibly component of CHF. Findings are more consistent with pneumonia, rule out aspiration specially the patient is having chronic issues with dysphagia and swallowing. The patient will be covered with broad-spectrum antibiotics and currently on cefepime Acute hypoxic respiratory failure currently on 4 L by nasal cannula Dysphagia, Esophageal stricture, Esophageal dysmotility, undergone a recent esophageal dilatation Acute exacerbation of chronic obstructive pulmonary disease, secondary to above Advanced COPD with an FEV1 value of 43% of predicted, intolerant to Trelegy, remains on Advair and albuterol in the outpatient setting Atypical chest pain, abnormal troponins, nonocclusive CAD based on recent catheterization History of right hemidiaphragmatic paralysis post plication History of bladder cancer with excision of tumor History of migraines History of Diego's palsy History of Takusubo syndrome, The patient had a cardiac catheterization back in February 2021 and the patient was found to have mild/minimal COPD and he was given possible diagnosis of takasubo , his ejection fraction was around 35-40%. He had significant wall motion abnormalities. History of bowel resection Former smoker Multiple orthopedic surgeries Plan The patient was seen and evaluated Follow-up chest x-ray pending Remains on cefepime Titrate the FiO2 as tolerated He does have home oxygen Continue Symbicort and DuoNeb inhalations Discharge planning in place I have personally seen and examined the patient, performed the documentation and the assessment and plan as written. Number of minutes spent on the visit: 10.
[2021-11-02] MEDS: CEFEPIME 2 GM in SODIUM CHLORIDE 0.9% 100 ML IVPB SCH ×2 (07:10→15:48)
[2021-11-02] MEDS: PANTOPRAZOLE 40 MG TABLET PO SCH (07:10)
[2021-11-02] MEDS: ENOXAPARIN 40 MG/0.4 ML SYRINGE SQ SCH (07:11)
[2021-11-02] MEDS: IPRATROPIUM-ALBUTEROL 3 ML NEB INHALATION SCH ×2 (07:27→20:00)
[2021-11-02] MEDS: SYMBICORT 160-4.5 MCG INHALER INHALATION SCH ×2 (07:28→20:00)
--- NOTE | 2021-11-02 08:27 | P.PN ---
Subjective Principal diagnosis: Pneumonia. This is 76-year-old white male essentially admitted for acute respiratory distress found have lower pneumonia. The patient seems quite tired. No voiding symptoms. He is answering follow commands appropriately. He seems less tired today. Still ashen dependent. We will try to wean today possible Objective - Vital Signs Vital signs: Vital Signs Temp 97.5 F L 11/02/21 07:47 Pulse 70 11/02/21 07:47 Resp 17 11/02/21 07:47 BP 150/88 11/02/21 07:47 Pulse Ox 94 L 11/02/21 07:47 FiO2 Intake & Output 11/01/21 11/02/21 11/02/21 18:59 06:59 18:59 Other: Voiding Method Urinal # Voids 4 3 - Constitutional General appearance: Present: thin - EENT Eyes: Absent: abnormal pupil - Neck Neck: Absent: lymphadenopathy - Respiratory Respiratory: bilateral: diminished - Cardiovascular Rhythm: regular Heart sounds: normal: S1, S2 Abnormal Heart Sounds: Absent: S3 Gallop - Gastrointestinal General gastrointestinal: Present: scaphoid. Absent: tenderness - Labs CBC & Chem 7: 11/01/21 07:06 11/01/21 07:06 Labs: Abnormal Lab Results - Last 24 Hours (Table) 11/01/21 11/01/21 Range/Units 07:06 07:06 RBC 3.97 L (4.40-5.60) X 10*6/uL MCV 101.0 H (80.0-97.0) fL MCH 33.2 H (27.0-32.0) pg Carbon Dioxide 28.2 H (20.0-27.5) mmol/L Total Protein 5.8 L (6.2-8.2) g/dL Albumin 3.7 L (3.8-4.9) g/dL Microbiology - Last 24 Hours (Table) 10/29/21 22:13 Blood Culture - Preliminary Blood No Growth after 72 hours Assessment and Plan (1) COPD (chronic obstructive pulmonary disease) Current Visit: Yes Status: Acute Code(s): J44.9 - CHRONIC OBSTRUCTIVE PULMONARY DISEASE, UNSPECIFIED SNOMED Code(s): 34190924 (2) Hypoxia Current Visit: Yes Status: Acute Code(s): R09.02 - HYPOXEMIA SNOMED Code(s): 022350179 (3) Pneumonia Current Visit: Yes Status: Acute Code(s): J18.9 - PNEUMONIA, UNSPECIFIED ORGANISM SNOMED Code(s): 896898203 (4) Headache, chronic migraine without aura Current Visit: Yes Status: Chronic Code(s): G43.709 - CHRONIC MIGRAINE W/O AURA, NOT INTRACTABLE, W/O STAT MIGR SNOMED Code(s): 67214199 Plan: Continue current regimen of treatment. Appreciate pulmonology input. Check CBC and CMP in a.m. Continue respiratory support
[2021-11-02 10:29] LABS: HCT 38.9 % (39.6-50.0); HGB 12.7 g/dL (13.0-17.0); MCH 32.2 pg (27.0-32.0); MCHC 32.6 g/dL (32.0-37.0); MCV 98.5 fL (80.0-97.0); NRBC Per 100 WBC 0.7 /100 WBCS (0.0-0.0); Platelet Count 216 X 10*3/uL (140-440); RBC 3.95 X 10*6/uL (4.40-5.60); RDW 13.3 % (11.5-14.5); WBC 4.61 X 10*3/uL (4.50-10.00)
[2021-11-02 11:38] LABS: African American GFR (CKD) 106.2 (60.0-200.0); Albumin 3.3 g/dL (3.8-4.9); Albumin/Globulin Ratio 1.57 (1.60-3.17); Anion Gap 9.1 mmol/L (10.00-18.00); Blood Urea Nitrogen 11.2 mg/dL (9.0-27.0); Calcium 9.2 mg/dL (8.7-10.3); Carbon Dioxide 27.9 mmol/L (20.0-27.5); Globulin 2.1 g/dL (1.6-3.3); Non-African American GFR(CKD) 91.7 (60.0-200.0); Potassium 4.1 mmol/L (3.5-5.5); Total Bilirubin 0.4 mg/dL (0.30-1.20); Total Protein 5.4 g/dL (6.2-8.2)
--- NOTE | 2021-11-02 12:11 | P.PN ---
Subjective Progress Note Date: 11/02/21 This is a 76-year-old male patient is coming in for generalized weakness, fatigue, nausea, increased cough and congestion worsening shortness of breath. He is known to have COPD and chronic right hemidiaphragmatic elevation and the patient has undergone previous plication. Nevertheless, this patient gets recurrent right lung pneumonia. The patient may have an underlying aspiration as the patient is known to have esophageal dysmotility and stricture and he has undergone a recent dilatation by general surgery. He may potentially have some recurrent aspiration. He is coming in with increased shortness of breath and cough. He is also having some nonspecific chest pain. 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 The patient has been followed up by cardiology As sociates. For now, the patient was advised about without edema 14.5. Normal clinical evaluation profile. Troponins are 0.09 0.09 and 0.08 respectively. Normal electrolytes. Normal renal function. COVID 19 testing was negative and influenza was also negative. He is currently on oxygen at 4 L. No altered mentation. The patient is seen today 10/31/2021 in follow-up on the regular medical floor. He is awake and alert in no acute distress. Maintaining O2 saturations in the 90s on 4 L/m per nasal cannula. No worsening shortness of breath, cough or congestion. Improved but not quite back to his baseline. He is continued on Symbicort, DuoNeb inhalations, Lovenox. Antibiotics in the form of cefepime. Blood cultures reveal no growth to date. Sodium 137. Potassium 4.7. BUN 13. Creatinine 0.7. Patient is seen today 11/01/2021 in follow-up on the regular medical floor. He is currently sitting up the bedside having lunch. Awake and alert in no acute distress. He did have a swallow evaluation done. He is tolerating his current diet. Earlier chest x-ray revealed atelectasis of the right lung base. Follow- up chest x-ray today is pending. He is maintaining O2 saturations up to 100% on 4 L/m per nasal cannula. Continue on cefepime. Remains on Symbicort and DuoNeb inhalations. Lovenox for DVT prophylaxis. The patient is seen today 11/02/2021 in follow-up on the regular medical floor. He is sitting up in bed. Awake and alert in no acute distress. Doing quite a bit better. Maintaining O2 saturations in the mid 90s on 2 L/m per nasal cannula. Afebrile. White count 4.6. Hemoglobin 12.7. Platelets 216. Sodium 139. Potassium 4.1. BUN 11. Creatinine 0.7. Please continue DuoNeb inhalations, Symbicort. Lovenox for DVT prophylaxis. Remains on cefepime. C hest x-ray showed mild infiltrate in the left upper lobe. Objective - Vital Signs Vital signs: Vital Signs Temp 97.5 F L 11/02/21 07:47 Pulse 70 11/02/21 07:47 Resp 17 11/02/21 07:47 BP 150/88 11/02/21 07:47 Pulse Ox 94 L 11/02/21 07:47 FiO2 Intake & Output 11/01/21 11/02/21 11/02/21 18:59 06:59 18:59 Other: Voiding Method Urinal # Voids 4 3 - Exam GENERAL EXAM: Alert, pleasant 76-year-old gentleman on 2 L nasal cannula, comfortable in no apparent distress. HEAD: Normocephalic. EYES: Normal reaction of pupils, equal size. NOSE: Clear with pink turbinates. THROAT: No erythema or exudates. NECK: No masses, no JVD. CHEST: No chest wall deformity. LUNGS: Equal air entry with no crackles, wheeze, rhonchi or dullness. Diminished. CVS: S1 and S2 normal with no audible murmur, regular rhythm. ABDOMEN: No hepatosplenomegaly, normal bowel sounds, no guarding or rigidity. SPINE: No scoliosis or deformity SKIN: No rashes CENTRAL NERVOUS SYSTEM: No focal deficits, tone is normal in all 4 extremities. EXTREMITIES: There is no peripheral edema. No clubbing, no cyanosis. Peripheral pulses are intact. - Labs CBC & Chem 7: 11/02/21 05:59 11/02/21 05:59 Labs: Abnormal Lab Results - Last 24 Hours (Table) 11/02/21 11/02/21 Range/Units 05:59 05:59 RBC 3.95 L (4.40-5.60) X 10*6/uL Hgb 12.7 L (13.0-17.0) g/dL Hct 38.9 L (39.6-50.0) % MCV 98.5 H (80.0-97.0) fL MCH 32.2 H (27.0-32.0) pg Absolute Nucleated RBC 0.03 H (0.00-0.00) X 10*3/uL NRBC/100 WBC Diff 0.7 H (0.0-0.0) /100 WBCS Carbon Dioxide 27.9 H (20.0-27.5) mmol/L Anion Gap 9.10 L (10.00-18.00) mmol/L Total Protein 5.4 L (6.2-8.2) g/dL Albumin 3.3 L (3.8-4.9) g/dL Albumin/Globulin Ratio 1.57 L (1.60-3.17) g/dL Microbiology - Last 24 Hours (Table) 10/29/21 22:13 Blood Culture - Preliminary Blood No Growth after 72 hours Assessment and Plan Assessment: Acute right lower lobe pneumonia with a possibly component of CHF. Findings are more consistent with pneumonia, rule out aspiration specially the patient is having chronic issues with dysphagia and swallowing. The patient will be covered with broad-spectrum antibiotics and currently on cefepime Acute hypoxic respiratory failure currently on 4 L by nasal cannula Dysphagia, Esophageal stricture, Esophageal dysmotility, undergone a recent esophageal dilatation Acute exacerbation of chronic obstructive pulmonary disease, secondary to above Advanced COPD with an FEV1 value of 43% of predicted, intolerant to Trelegy, remains on Advair and albuterol in the outpatient setting Atypical chest pain, abnormal troponins, nonocclusive CAD based on recent catheterization History of right hemidiaphragmatic paralysis post plication History of bladder cancer with excision of tumor History of migraines History of Diego's palsy History of Takusubo syndrome, The patient had a cardiac catheterization back in February 2021 and the patient was found to have mild/minimal COPD and he was given possible diagnosis of takasubo , his ejection fraction was around 35-40%. He had significant wall motion abnormalities. History of bowel resection Former smoker Multiple orthopedic surgeries Plan The patient was seen and evaluated Chest x-ray labs and medications reviewed Cleared for discharge from the pulmonary standpoint Complete a 7 day course of Ceftin 500 mg twice a day He does have home oxygen Continue Symbicort and DuoNeb inhalations I have personally seen and examined the patient, performed the documentation and the assessment and plan as written. Number of minutes spent on the visit: 10.
[2021-11-02] MEDS: IBUPROFEN 400 MG TAB PO PRN (17:00)
[2021-11-02] MEDS ORDERED: HYDROcodone/APAP 5-325MG 1 EACH TAB PO PRN (20:10)
--- NOTE | 2021-11-02 22:18 | XR ---
EXAMINATION TYPE: XR chest 1V portable DATE OF EXAM: 11/01/2021 CLINICAL HISTORY: Aspiration pneumonia progress study. TECHNIQUE: Single AP portable upright view of the chest is obtained. COMPARISON: Chest x-ray from 3 days earlier FINDINGS: Patchy right basilar opacity redemonstrated. New left basilar opacity. Upper lungs are coy ar without pneumothorax. Cardiac silhouette size is stable and upper limits of normal with ectatic th oracic aorta causing right-sided tracheal deviation redemonstrated. Spinal stimulator device lower th oracic spinal canal redemonstrated. IMPRESSION: Stable right basilar acute infiltrate and/or atelectasis. New left basilar acute infiltra te and/or atelectasis.
[2021-11-03] MEDS: CEFEPIME 2 GM in SODIUM CHLORIDE 0.9% 100 ML IVPB SCH ×2 (00:01→08:18)
[2021-11-03 03:54] VITALS: RESP 16; TEMP 97.6
[2021-11-03 07:40] VITALS: BP 160/88
--- NOTE | 2021-11-03 07:52 | P.DS ---
Providers Date of admission: 10/30/21 00:14 Attending physician: Lul Garcia Consults: 10/30/21 00:14 Consult Physician Urgent Consulting Provider: Bharath Medrano Consult Reason/Comments: acute hypoxic resp failure, CAP Do you want consulting provider notified?: Yes Primary care physician: Lul Garcia - Discharge Diagnosis(es) (1) COPD (chronic obstructive pulmonary disease) Current Visit: Yes Status: Acute (2) Hypoxia Current Visit: Yes Status: Acute (3) Pneumonia Current Visit: Yes Status: Acute (4) Headache, chronic migraine without aura Current Visit: Yes Status: Chronic Hospital Course: This discharge summary 76-year-old white male centimeter for pneumonia left lower lobe. The patient was stabilized with antibiotic treatment. Underlying history of COPD. He's been afebrile tolerating diet and ambulating without significant difficulty. The patient has underlying history of chronic migraine and DJD of lumbar spine but struggled with opiate dependence past. Patient is discharged in stable condition to follow-up with me in about 3-5 days. We will check pulse ox on room air to see if the patient does need oxygen. Patient Condition at Discharge: Fair Plan - Discharge Summary Discharge Rx Participant: Yes New Discharge Prescriptions: New Azithromycin [Zithromax Tri-Duran (3 tabs)] 500 mg PO DAILY 3 Days #3 tab Continue Albuterol Nebulized [Ventolin Nebulized] 2.5 mg INHALATION RT-BID PRN PRN Reason: Shortness Of Breath Ipratropium-Albuterol Nebulize [Duoneb 0.5 mg-3 mg/3 ml Soln] 3 ml INHALATION RT-BID Nitroglycerin Sl Tabs [Nitrostat] 0.4 mg SL Q5M PRN PRN Reason: Chest Pain Omeprazole [PriLOSEC] 40 mg PO DAILY Fluticasone Propion/Salmeterol [Advair 500-50 Diskus] 1 puff INHALATION RT- BID Albuterol Nebulized [Ventolin Nebulized] 2.5 mg INHALATION RT-BID Ipratropium-Albuterol Nebulize [Duoneb 0.5 mg-3 mg/3 ml Soln] 3 ml INHALATION RT-BID PRN PRN Reason: Shortness Of Breath Discharge Medication List Albuterol Nebulized [Ventolin Nebulized] 2.5 mg INHALATION RT-BID PRN 08/16/21 [History] Nitroglycerin Sl Tabs [Nitrostat] 0.4 mg SL Q5M PRN 08/16/21 [History] Fluticasone Propion/Salmeterol [Advair 500-50 Diskus] 1 puff INHALATION RT-BID 09/08/21 [History] Omeprazole [PriLOSEC] 40 mg PO DAILY 09/08/21 [History] Albuterol Nebulized [Ventolin Nebulized] 2.5 mg INHALATION RT-BID 10/30/21 [History] Ipratropium-Albuterol Nebulize [Duoneb 0.5 mg-3 mg/3 ml Soln] 3 ml INHALATION RT-BID 10/30/21 [History] Ipratropium-Albuterol Nebulize [Duoneb 0.5 mg-3 mg/3 ml Soln] 3 ml INHALATION RT-BID PRN 10/30/21 [History] Azithromycin [Zithromax Tri-Duran (3 tabs)] 500 mg PO DAILY 3 Days #3 tab 11/03/21 [Rx] Follow up Appointment(s)/Referral(s): Lul Garcia MD [Primary Care Provider] - 3 Days Discharge Disposition: HOME SELF-CARE
[2021-11-03] MEDS: ENOXAPARIN 40 MG/0.4 ML SYRINGE SQ SCH (08:18)
[2021-11-03] MEDS: PANTOPRAZOLE 40 MG TABLET PO SCH (08:18)
[2021-11-03] MEDS: SYMBICORT 160-4.5 MCG INHALER INHALATION SCH (08:47)
[2021-11-03] MEDS: IPRATROPIUM-ALBUTEROL 3 ML NEB INHALATION SCH (08:47)
[2021-11-03 08:53] VITALS: PULSE 72
[2021-11-03 09:08] LABS: MCH 32.3 pg (27.0-32.0); MCHC 33.3 g/dL (32.0-37.0); MCV 96.8 fL (80.0-97.0); Mean Platelet Volume 10.5 fL (9.5-12.2); NRBC Per 100 WBC 0 /100 WBCS (0.0-0.0); Platelet Count 210 X 10*3/uL (140-440); RBC 3.72 X 10*6/uL (4.40-5.60); RDW 13.6 % (11.5-14.5); WBC 3.88 X 10*3/uL (4.50-10.00)
[2021-11-03 09:26] LABS: African American GFR (CKD) 113.2 (60.0-200.0); Albumin 3.4 g/dL (3.8-4.9); Albumin/Globulin Ratio 1.79 (1.60-3.17); Anion Gap 7.7 mmol/L (10.00-18.00); Calcium 9.1 mg/dL (8.7-10.3); Carbon Dioxide 32.3 mmol/L (20.0-27.5); Globulin 1.9 g/dL (1.6-3.3); Non-African American GFR(CKD) 97.7 (60.0-200.0); Potassium 3.9 mmol/L (3.5-5.5); Total Bilirubin 0.4 mg/dL (0.30-1.20); Total Protein 5.3 g/dL (6.2-8.2)
--- NOTE | 2021-11-06 11:51 | CDI ---
Documentation Clarification Form Date: 11/06/21 From: Juana Reynaga Admit Date: 10/30/2021 12:14:00 AM Patient Name: Dashawn Fair Visit Number: [id number] Discharge Date: 11/03/2021 01:19:00 PM ATTENTION: The Clinical Documentation Specialists (CDI) and [facility] Coding Staff appreciate your assistance in clarifying documentation. Please respond to the clarification below the line at the bottom and electronically sign. The CDI & [facility] Coding staff will review the response and follow-up if needed. Please note: Queries are made part of the Legal Health Record. If you have any questions, please contact the author of this message via ITS. Dr. Lul Garcia, Right lower lobe pneumonia is documented in the H&P, consult and discharge summary. Additional clarification regarding the type of pneumonia is requested. History/Risk Factors: COPD, opiate dependence, DJD of lumbar spine, GERD, CAD Clinical Indicators: Per consult: Findings are more consistent with pneumonia, rule out aspiration specially the patient is having chronic issues with dysphagia and swallowing. He has dysphagia, esophageal stricture and esophageal dysmotility. Multiple pneumonias in the past. WBC/Left shift: 9.9/8.1 X-ray: There is increasing infiltrate and atelectasis right lung base compared to old exam. Lung/Breathing assessment: weakness, cough, congestion and worsening SOB Treatment: IV Levaquin, IV Maxipime O2 Breathing Tx: nebulizer Please clarify the type of pneumonia, if known: [ ] Aspiration Pneumonia, Due to food or vomitus [ x ] Bacterial Pneumonia, specify causal organism (if known) [ ] Gram Negative Bacterial Pneumonia [ ] Other, please specify [ ] Unable to determine MTDD
== END 2021-11-03 13:19 | disposition home or self-care (01) | DRG 193 ==
LOC: EC 20:09 → 4SSUR 10-30 00:14
PROVIDERS: ADMIT Family Medicine; ATTEND Family Medicine
DX: J15.9 Unspecified bacterial pneumonia (principal); J96.21 Acute and chronic respiratory failure with hypoxia; I42.9 Cardiomyopathy, unspecified; J44.0 Chronic obstructive pulmonary disease with (acute) lower respiratory infection; J44.1 Chronic obstructive pulmonary disease with (acute) exacerbation; J98.11 Atelectasis; F11.20 Opioid dependence, uncomplicated; K22.2 Esophageal obstruction; J98.6 Disorders of diaphragm; I50.9 Heart failure, unspecified; Z20.822 Contact with and (suspected) exposure to COVID-19; K21.9 Gastro-esophageal reflux disease without esophagitis; G43.709 Chronic migraine without aura, not intractable, without status migrainosus; K22.4 Dyskinesia of esophagus; I25.10 Atherosclerotic heart disease of native coronary artery without angina pectoris; I25.2 Old myocardial infarction; M47.816 Spondylosis without myelopathy or radiculopathy, lumbar region; Z99.81 Dependence on supplemental oxygen; Z79.51 Long term (current) use of inhaled steroids; Z79.899 Other long term (current) drug therapy; Z87.891 Personal history of nicotine dependence; Z85.51 Personal history of malignant neoplasm of bladder; Z85.47 Personal history of malignant neoplasm of testis; Z92.3 Personal history of irradiation; Z96.82 Presence of neurostimulator; Z88.1 Allergy status to other antibiotic agents; Z91.02 Food additives allergy status; Z88.5 Allergy status to narcotic agent; Z91.018 Allergy to other foods; Z88.0 Allergy status to penicillin; Z88.2 Allergy status to sulfonamides; Z88.8 Allergy status to other drugs, medicaments and biological substances; Z91.048 Other nonmedicinal substance allergy status
CPT/HCPCS: 36415; 70450; 71045; 71046; 80048; 80053; 81003; 83605; 83880; 84484; 85025; 85027; 85610; 85730; 87040; 87502; 87635; 93005; 94640; 94760; 96361; 96365; 96366; 96375; 96376; 99285

== ENCOUNTER 2021-11-06 23:08 | Inpatient (IN) | payer MEDICARE ==
[2021-11-07 00:06] LABS: Basophils # (A) 0.1 k/uL (0-0.2); Basophils % (A) 1 %; Eosinophils # (A) 0.1 k/uL (0-0.7); Eosinophils % (A) 2 %; HCT 38.8 % (39.0-53.0); HGB 12.7 gm/dL (13.0-17.5); Lymphocytes # (A) 0.9 k/uL (1.0-4.8); Lymphocytes % (A) 12 %; MCH 32.5 pg (25.0-35.0); MCHC 32.8 g/dL (31.0-37.0); Mean Platelet Volume 8.3; Monocytes # (A) 0.5 k/uL (0-1.0); Monocytes % (A) 7 %; Neutrophils # (A) 5.4 k/uL (1.3-7.7); Neutrophils % (A) 75 %; Platelet Count 259 k/uL (150-450); RBC 3.91 m/uL (4.30-5.90); RDW 13.3 % (11.5-15.5); WBC 7.1 k/uL (3.8-10.6)
[2021-11-07 00:19] LABS: Partial Thromboplastin Time 26.8 sec (22.0-30.0); Prothrombin Time 10.9 sec (9.0-12.0)
--- NOTE | 2021-11-07 00:31 | XR ---
EXAMINATION TYPE: XR chest 2V DATE OF EXAM: 11/07/2021 COMPARISON: 11/01/2021 HISTORY: Short of breath TECHNIQUE: FINDINGS: There is elevated right diaphragm with blunting right costophrenic angle. There is atelecta sis right lung base. Left lung is clear. There is no stimulator in the lower thoracic spine. There ar e chest leads. Heart size is normal. IMPRESSION: There is pleural reaction and atelectasis at the right lung base slightly worse than last exam. There is improvement in the atelectasis left lung base compared to old exam. No heart failure.
[2021-11-07 00:38] LABS: ALT 21 U/L (4-49); AST 28 U/L (17-59); African American GFR (CKD) >90 (>60 ml/min/1.73 sqM); Albumin 3.2 g/dL (3.5-5.0); Alkaline Phosphatase 65 U/L (38-126); Anion Gap 9 mmol/L; Blood Urea Nitrogen 10 mg/dL (9-20); Calcium 8.1 mg/dL (8.4-10.2); Carbon Dioxide 25 mmol/L (22-30); Chloride 101 mmol/L (98-107); Glucose 97 mg/dL (74-99); Non-African American GFR(CKD) >90 (>60 ml/min/1.73 sqM); Potassium 3.7 mmol/L (3.5-5.1); Sodium 135 mmol/L (137-145); Total Bilirubin 0.6 mg/dL (0.2-1.3); Total Protein 5.3 g/dL (6.3-8.2)
--- NOTE | 2021-11-07 00:49 | ED ---
General Adult HPI - General Chief complaint: Weakness Stated complaint: weakness Time Seen by Provider: 11/06/21 23:18 Source: patient Mode of arrival: EMS - History of Present Illness Initial comments: This patient is 76-year-old man with underlying history of COPD and recent pn eumonia. The patient was in fact discharged from the hospital Saturday after being admitted for total of 6 days for pneumonia. Patient states that since discharge over approximately the past 2 days she has been feeling increasing generalized weakness and fatigue. He has started having fevers again. His breathing does not feel like it is continuing to improve now. He does have a little bit of cough. Patient denies chest pain. No orthopnea. No leg pain or swelling. No change in urination or bowel movements. Onset/Timin -: days(s) Severity scale (1-10): 0 Consistency: constant Improves with: none Worsens with: none Associated Symptoms: cough, fever/chills, malaise, shortness of breath, weakness Treatments Prior to Arrival: none - Related Data Home Medications Medication Instructions Recorded Confirmed Albuterol Nebulized [Ventolin 2.5 mg INHALATION RT-BID PRN 08/16/21 11/07/21 Nebulized] Nitroglycerin Sl Tabs [Nitrostat] 0.4 mg SL Q5M PRN 08/16/21 11/07/21 Fluticasone Propion/Salmeterol 1 puff INHALATION RT-BID 09/08/21 11/07/21 [Advair 500-50 Diskus] Omeprazole [PriLOSEC] 40 mg PO DAILY 09/08/21 11/07/21 Albuterol Nebulized [Ventolin 2.5 mg INHALATION RT-BID 10/30/21 11/07/21 Nebulized] Ipratropium-Albuterol Nebulize 3 ml INHALATION RT-BID 10/30/21 11/07/21 [Duoneb 0.5 mg-3 mg/3 ml Soln] Ipratropium-Albuterol Nebulize 3 ml INHALATION RT-BID PRN 10/30/21 11/07/21 [Duoneb 0.5 mg-3 mg/3 ml Soln] Previous Rx's Medication Instructions Recorded Azithromycin [Zithromax Tri-Duran (3 500 mg PO DAILY 3 Days #3 tab 11/03/21 tabs)] Nirmatrelvir/Ritonavir [Paxlovid 1 each PO BID #30 each 11/08/21 300-100 mg Pack (Eua)] Allergies Allergy/AdvReac Type Severity Reaction Status Date / Time celecoxib [From Celebrex] Allergy Unknown Verified 11/07/21 07:56 Iodinated Contrast Media Allergy Anaphylaxis Verified 11/07/21 07:56 [Iodinated Contrast Media - IV Dye] iodine Allergy Anaphylaxis Verified 11/07/21 07:56 Penicillins Allergy Anaphylaxis Verified 11/07/21 07:56 Sulfa (Sulfonamide Allergy Anaphylaxis Verified 11/07/21 07:56 Antibiotics) tramadol Allergy Swelling Verified 11/07/21 07:56 fentanyl AdvReac Severe SEVERE Verified 11/07/21 07:56 MIGRAINES adhesive AdvReac tears skin Verified 11/07/21 07:56 banana AdvReac HEADACHE Verified 11/07/21 07:56 chocolate flavor AdvReac TRIGGERS Verified 11/07/21 07:56 MIGRAINE duloxetine [From Cymbalta] AdvReac Headaches Verified 11/07/21 07:56 gabapentin AdvReac Confusion Verified 11/07/21 07:56 Opioids - Morphine Analogues AdvReac Migraine Verified 11/07/21 07:56 Opioids-Meperidine and AdvReac Migraine Verified 11/07/21 07:56 Related peanut AdvReac TRIGGERS Verified 11/07/21 07:56 MIGRAINES tree nut [Nut] AdvReac HEADACHE Verified 11/07/21 07:56 yellow dye AdvReac HEADACHE Verified 11/07/21 07:56 Review of Systems ROS Statement: Those systems with pertinent positive or pertinent negative responses have been documented in the HPI. ROS Other: All systems not noted in ROS Statement are negative. Constitutional: Reports: fever, chills, weakness Respiratory: Reports: cough, dyspnea. 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 "Broken heart syndrome." Lower back stimulator. Last Myocardial Infarction Date:: 05/25/14 History of Any Multi-Drug Resistant Organisms: None Reported Past Surgical History: Adenoidectomy, Appendectomy, Back Surgery, Bowel Resection, Cholecystectomy, Heart Catheterization, Hernia Repair, Orthopedic Surgery, Tonsillectomy Additional Past Surgical History / Comment(s): EGD/colonoscopy, cardiac cathetrization X2, several back surgeries including laminectomy, spinous process removed T11 and T12/cage/arturo, bilateral arthroscopic knee surgeries, bilateral thumb surgeries with right titanium joint, left rotator cuff repair, several nasal polypectomies, pain procedures - RFA cervical/back, bilateral inguinal hernia repairs, right orchiectomy, diaphragmatic hernia repair, section of sigmoid colon removed, back stimulator put in left hip for back pain at [facility], right hand surgery. Past Anesthesia/Blood Transfusion Reactions: No Reported Reaction Past Psychological History: No Psychological Hx Reported Smoking Status: Former smoker Past Alcohol Use History: None Reported Past Drug Use History: None Reported - Past Family History Father Family Medical History: Cancer Additional Family Medical History / Comment(s): Father of stomach ca at the age of 65 yrs. Mother Family Medical History: No Reported History Additional Family Medical History / Comment(s): Mother of "old age". She was 83 yrs old. Brother(s) Family Medical History: Cancer, Diabetes Mellitus Additional Family Medical History / Comment(s): Brain tumor. Sister(s) Family Medical History: Cancer, Diabetes Mellitus Additional Family Medical History / Comment(s): Sisters breast cancer. General Exam General appearance: alert, in no apparent distress Head exam: Present: atraumatic, normocephalic Eye exam: Present: normal appearance Neck exam: Present: normal inspection Respiratory exam: Present: rales. Absent: respiratory distress, wheezes, rhonchi, stridor Cardiovascular Exam: Present: regular rate, normal rhythm, normal heart sounds. Absent: systolic murmur, diastolic murmur, rubs, gallop GI/Abdominal exam: Present: soft. Absent: distended, tenderness, guarding, rebound, rigid, mass Extremities exam: Present: normal inspection, normal capillary refill. Absent: pedal edema, calf tenderness Back exam: Present: normal inspection. Absent: CVA tenderness (R), CVA tenderness (L) Neurological exam: Present: alert Skin exam: Present: warm, dry, intact, normal color. Absent: rash Course Vital Signs 11/06/21 11/06/21 11/07/21 23:15 23:20 00:20 Temperature 98.9 F 99.0 F 98.7 F Pulse Rate 77 87 65 Respiratory 18 17 17 Rate Blood Pressure 176/92 165/76 147/76 O2 Sat by Pulse 97 98 97 Oximetry 11/07/21 11/07/21 11/07/21 01:00 04:00 05:00 Temperature Pulse Rate 67 61 58 L Respiratory 16 17 15 Rate Blood Pressure 148/100 119/64 143/72 O2 Sat by Pulse 100 97 98 Oximetry 11/07/21 11/07/21 11/07/21 06:00 08:19 10:00 Temperature Pulse Rate 60 58 L Respiratory 15 16 Rate Blood Pressure 144/76 139/72 O2 Sat by Pulse 100 98 100 Oximetry 11/07/21 14:00 Temperature Pulse Rate 67 Respiratory 18 Rate Blood Pressure 126/76 O2 Sat by Pulse 96 Oximetry EKG Findings - EKG Comments: EKG Findings:: The ECG interpretation slightly limited due to artifact from patient's nerve stimulator - EKG Results: EKG: interpreted by ERMD, sinus rhythm (Rate 80 bpm) - Blocks, Reyno, Hypertrophy, ST Abn: AV and intraventricular conduction: right bundle branch block (fixed/intermittent, complete/incomplete) (Incomplete), left anterior fascicular block Medical Decision Making - Lab Data Result diagrams: 11/08/21 05:26 11/06/21 23:47 Lab Results 11/06/21 11/06/21 11/06/21 Range/Units 23:47 23:47 23:47 WBC 7.1 (3.8-10.6) k/uL RBC 3.91 L (4.30-5.90) m/uL Hgb 12.7 L (13.0-17.5) gm/dL Hct 38.8 L (39.0-53.0) % MCV 99.0 (80.0-100.0) fL MCH 32.5 (25.0-35.0) pg MCHC 32.8 (31.0-37.0) g/dL RDW 13.3 (11.5-15.5) % Plt Count 259 (150-450) k/uL MPV 8.3 Neutrophils % 75 % Lymphocytes % 12 % Monocytes % 7 % Eosinophils % 2 % Basophils % 1 % Neutrophils # 5.4 (1.3-7.7) k/uL Lymphocytes # 0.9 L (1.0-4.8) k/uL Monocytes # 0.5 (0-1.0) k/uL Eosinophils # 0.1 (0-0.7) k/uL Basophils # 0.1 (0-0.2) k/uL PT 10.9 (9.0-12.0) sec INR 1.0 (<1.2) APTT 26.8 (22.0-30.0) sec Sodium 135 L (137-145) mmol/L Potassium 3.7 (3.5-5.1) mmol/L Chloride 101 (98-107) mmol/L Carbon Dioxide 25 (22-30) mmol/L Anion Gap 9 mmol/L BUN 10 (9-20) mg/dL Creatinine 0.60 L (0.66-1.25) mg/dL Est GFR (CKD-EPI)AfAm >90 (>60 ml/min/1.73 sqM) Est GFR (CKD-EPI)NonAf >90 (>60 ml/min/1.73 sqM) Glucose 97 (74-99) mg/dL Calcium 8.1 L (8.4-10.2) mg/dL Total Bilirubin 0.6 (0.2-1.3) mg/dL AST 28 (17-59) U/L ALT 21 (4-49) U/L Alkaline Phosphatase 65 (38-126) U/L Troponin I (0.000-0.034) ng/mL Total Protein 5.3 L (6.3-8.2) g/dL Albumin 3.2 L (3.5-5.0) g/dL Procalcitonin (0.02-0.09) ng/mL Coronavirus (PCR) (Not Detectd) 11/06/21 11/06/21 11/06/21 Range/Units 23:47 23:47 23:49 WBC (3.8-10.6) k/uL RBC (4.30-5.90) m/uL Hgb (13.0-17.5) gm/dL Hct (39.0-53.0) % MCV (80.0-100.0) fL MCH (25.0-35.0) pg MCHC (31.0-37.0) g/dL RDW (11.5-15.5) % Plt Count (150-450) k/uL MPV Neutrophils % % Lymphocytes % % Monocytes % % Eosinophils % % Basophils % % Neutrophils # (1.3-7.7) k/uL Lymphocytes # (1.0-4.8) k/uL Monocytes # (0-1.0) k/uL Eosinophils # (0-0.7) k/uL Basophils # (0-0.2) k/uL PT (9.0-12.0) sec INR (<1.2) APTT (22.0-30.0) sec Sodium (137-145) mmol/L Potassium (3.5-5.1) mmol/L Chloride (98-107) mmol/L Carbon Dioxide (22-30) mmol/L Anion Gap mmol/L BUN (9-20) mg/dL Creatinine (0.66-1.25) mg/dL Est GFR (CKD-EPI)AfAm (>60 ml/min/1.73 sqM) Est GFR (CKD-EPI)NonAf (>60 ml/min/1.73 sqM) Glucose (74-99) mg/dL Calcium (8.4-10.2) mg/dL Total Bilirubin (0.2-1.3) mg/dL AST (17-59) U/L ALT (4-49) U/L Alkaline Phosphatase (38-126) U/L Troponin I 0.020 (0.000-0.034) ng/mL Total Protein (6.3-8.2) g/dL Albumin (3.5-5.0) g/dL Procalcitonin 0.04 (0.02-0.09) ng/mL Coronavirus (PCR) Detected A (Not Detectd) Disposition Clinical Impression: COVID-19 virus infection Disposition: ADMITTED IP TO THIS HOSP Condition: Stable Is patient prescribed a controlled substance at d/c from ED?: No
[2021-11-07] MEDS ORDERED: NALOXONE 0.4 MG/ML 1 ML VIAL IV PRN (00:56)
[2021-11-07] MEDS ORDERED: ALBUTEROL NEBULIZED 2.5 MG/3 ML INHALATION PRN (01:02)
[2021-11-07] MEDS: SODIUM CHLORIDE 0.9% 1,000 ML IV SCH ×2 (01:10→18:16)
[2021-11-07 05:03] LABS: Appearance,Urine Clear (Clear); Bilirubin,Urine Negative (Negative); Blood,Urine Negative (Negative); Color,Urine Light Yellow; Glucose,Urine (UA) Negative (Negative); Ketones,Urine 1+ (Negative); Leukocyte Esterase,Urine Negative (Negative); Nitrite,Urine Negative (Negative); Protein,Urine Negative (Negative); Specific Gravity,Urine 1.008 (1.001-1.035); Urobilinogen,Urine <2.0 mg/dL (<2.0)
[2021-11-07] MEDS: SYMBICORT 160-4.5 MCG INHALER INHALATION SCH ×2 (08:19→20:09)
[2021-11-07] MEDS: PANTOPRAZOLE 40 MG TABLET PO SCH (08:23)
--- NOTE | 2021-11-07 12:30 | P.HPIM ---
History of Present Illness H&P Date: 11/07/21 Chief Complaint: Weakness Covid positivity This is a 76-year-old white male essentially who was recently discharged for right lower lobe pneumonia. Underlying history of COPD and chronic migraine headaches. He does struggle with opiate dependence in the past but he was sta ble discharge several days ago. He is readmitted secondary to new onset weakness. Covid testing was negative last week but now positive and he has difficulty ambulating. Review of Systems Constitutional: Denies chills, Denies fever Eyes: denies blurred vision, denies pain Ears, nose, mouth and throat: Denies headache, Denies sore throat Cardiovascular: Reports shortness of breath, Denies chest pain Respiratory: Reports congestion, Reports cough, Reports respiratory infections Gastrointestinal: Denies abdominal pain, Denies diarrhea, Denies nausea, Denies vomiting Musculoskeletal: Denies myalgias Integumentary: Denies pruritus, Denies rash Neurological: Denies numbness, Denies weakness Past Medical History Past Medical History: Cancer, Chest Pain / Angina, COPD, GERD/Reflux Additional Past Medical History / Comment(s): Hx bladder cancer 15 yrs ago, hx right testicular cancer - surgery & radiation 20+ yrs ago, occassional migraines, hx hiatal hernia, hx gastritis, 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 "Broken heart syndrome." Lower back stimulator. Last Myocardial Infarction Date:: 05/25/14 History of Any Multi-Drug Resistant Organisms: None Reported Past Surgical History: Adenoidectomy, Appendectomy, Back Surgery, Bowel Resection, Cholecystectomy, Heart Catheterization, Hernia Repair, Orthopedic Surgery, Tonsillectomy Additional Past Surgical History / Comment(s): EGD/colonoscopy, cardiac cathetrization X2, several back surgeries including laminectomy, spinous process removed T11 and T12/cage/atruro, bilateral arthroscopic knee surgeries, bilateral thumb surgeries with right titanium joint, left rotator cuff repair, several nasal polypectomies, pain procedures - RFA cervical/back, bilateral inguinal hernia repairs, right orchiectomy, diaphragmatic hernia repair, section of sigmoid colon removed, back stimulator put in left hip for back pain at [facility], right hand surgery. Past Anesthesia/Blood Transfusion Reactions: No Reported Reaction Past Psychological History: No Psychological Hx Reported Smoking Status: Former smoker Past Alcohol Use History: None Reported Past Drug Use History: None Reported - Past Family History Father Family Medical History: Cancer Additional Family Medical History / Comment(s): Father of stomach ca at the age of 65 yrs. Mother Family Medical History: No Reported History Additional Family Medical History / Comment(s): Mother of "old age". She was 83 yrs old. Brother(s) Family Medical History: Cancer, Diabetes Mellitus Additional Family Medical History / Comment(s): Brain tumor. Sister(s) Family Medical History: Cancer, Diabetes Mellitus Additional Family Medical History / Comment(s): Sisters breast cancer. Medications and Allergies Home Medications Medication Instructions Recorded Confirmed Type RX: Albuterol Nebulized [Ventolin 2.5 mg INHALATION RT-BID PRN 08/16/21 11/07/21 History Nebulized] RX: Nitroglycerin Sl Tabs 0.4 mg SL Q5M PRN 08/16/21 11/07/21 History [Nitrostat] RX: Fluticasone Propion/Salmeterol 1 puff INHALATION RT-BID 09/08/21 11/07/21 History [Advair 500-50 Diskus] RX: Omeprazole [PriLOSEC] 40 mg PO DAILY 09/08/21 11/07/21 History RX: Albuterol Nebulized [Ventolin 2.5 mg INHALATION RT-BID 10/30/21 11/07/21 History Nebulized] RX: Ipratropium-Albuterol Nebulize 3 ml INHALATION RT-BID 10/30/21 11/07/21 History [Duoneb 0.5 mg-3 mg/3 ml Soln] RX: Ipratropium-Albuterol Nebulize 3 ml INHALATION RT-BID PRN 10/30/21 11/07/21 History [Duoneb 0.5 mg-3 mg/3 ml Soln] Azithromycin [Zithromax Tri-Duran (3 500 mg PO DAILY 3 Days #3 tab 11/03/21 11/07/21 Rx tabs)] Allergies Allergy/AdvReac Type Severity Reaction Status Date / Time celecoxib [From Celebrex] Allergy Unknown Verified 11/07/21 07:56 Iodinated Contrast Media Allergy Anaphylaxis Verified 11/07/21 07:56 [Iodinated Contrast Media - IV Dye] iodine Allergy Anaphylaxis Verified 11/07/21 07:56 Penicillins Allergy Anaphylaxis Verified 11/07/21 07:56 Sulfa (Sulfonamide Allergy Anaphylaxis Verified 11/07/21 07:56 Antibiotics) tramadol Allergy Swelling Verified 11/07/21 07:56 fentanyl AdvReac Severe SEVERE Verified 11/07/21 07:56 MIGRAINES adhesive AdvReac tears skin Verified 11/07/21 07:56 banana AdvReac HEADACHE Verified 11/07/21 07:56 chocolate flavor AdvReac TRIGGERS Verified 11/07/21 07:56 MIGRAINE duloxetine [From Cymbalta] AdvReac Headaches Verified 11/07/21 07:56 gabapentin AdvReac Confusion Verified 11/07/21 07:56 Opioids - Morphine Analogues AdvReac Migraine Verified 11/07/21 07:56 Opioids-Meperidine and AdvReac Migraine Verified 11/07/21 07:56 Related peanut AdvReac TRIGGERS Verified 11/07/21 07:56 MIGRAINES tree nut [Nut] AdvReac HEADACHE Verified 11/07/21 07:56 yellow dye AdvReac HEADACHE Verified 11/07/21 07:56 Physical Exam Vitals: Vital Signs Temp Pulse Resp BP Pulse Ox 11/07/21 10:00 58 L 16 139/72 100 11/07/21 08:19 98 11/07/21 06:00 60 15 144/76 100 11/07/21 05:00 58 L 15 143/72 98 11/07/21 04:00 61 17 119/64 97 11/07/21 01:00 67 16 148/100 100 11/07/21 00:20 98.7 F 65 17 147/76 97 11/06/21 23:20 99.0 F 87 17 165/76 98 11/06/21 23:15 98.9 F 77 18 176/92 97 Intake and Output 11/06/21 11/07/21 11/07/21 22:59 06:59 14:59 Other: Weight 68.039 kg - Constitutional General appearance: no acute distress, thin - Neck Neck: no lymphadenopathy - Respiratory Respiratory: bilateral: diminished - Cardiovascular Rhythm: regular Heart sounds: normal: S1, S2 Abnormal Heart Sounds: no S3 Gallop - Gastrointestinal General gastrointestinal: soft, no tenderness, umbilical hernia - Musculoskeletal Musculoskeletal: generalized weakness - Psychiatric Psychiatric: A&O x's 3 Results CBC & Chem 7: 11/06/21 23:47 11/06/21 23:47 Labs: Abnormal Lab Results - Last 24 Hours (Table) 11/06/21 11/06/21 11/06/21 Range/Units 23:47 23:47 23:49 RBC 3.91 L (4.30-5.90) m/uL Hgb 12.7 L (13.0-17.5) gm/dL Hct 38.8 L (39.0-53.0) % Lymphocytes # 0.9 L (1.0-4.8) k/uL Sodium 135 L (137-145) mmol/L Creatinine 0.60 L (0.66-1.25) mg/dL Calcium 8.1 L (8.4-10.2) mg/dL Total Protein 5.3 L (6.3-8.2) g/dL Albumin 3.2 L (3.5-5.0) g/dL Urine Ketones (Negative) Coronavirus (PCR) Detected A (Not Detectd) 11/07/21 Range/Units 04:00 RBC (4.30-5.90) m/uL Hgb (13.0-17.5) gm/dL Hct (39.0-53.0) % Lymphocytes # (1.0-4.8) k/uL Sodium (137-145) mmol/L Creatinine (0.66-1.25) mg/dL Calcium (8.4-10.2) mg/dL Total Protein (6.3-8.2) g/dL Albumin (3.5-5.0) g/dL Urine Ketones 1+ H (Negative) Coronavirus (PCR) (Not Detectd) Assessment and Plan (1) COVID Current Visit: Yes Status: Acute Code(s): U07.1 - COVID-19 SNOMED Code(s): 667492732 (2) Acute respiratory failure Current Visit: No Status: Acute Code(s): J96.00 - ACUTE RESPIRATORY FAILURE, UNSP W HYPOXIA OR HYPERCAPNIA SNOMED Code(s): 37522318 (3) At risk for readmission to hospital Current Visit: No Status: Acute Code(s): Z91.89 - OTH PERSONAL RISK FACTORS, NOT ELSEWHERE CLASSIFIED SNOMED Code(s): 1123946459244 (4) Dyspnea Current Visit: No Status: Acute Code(s): R06.00 - DYSPNEA, UNSPECIFIED SNOMED Code(s): 748493003 Plan: Go ahead and consult pulmonology as necessary. Reconcile home medications. Continue antibiotic treatment. Check CBC and CMP in a.m. Due to his weakness, question discharge planning for rehab Time with Patient: Greater than 30
[2021-11-07] MEDS ORDERED: NITROGLYCERIN SL TABS 0.4 MG TAB SUBLINGUAL PRN (13:35)
[2021-11-07] MEDS ORDERED: IPRATROPIUM-ALBUTEROL 3 ML NEB INHALATION PRN (13:35)
[2021-11-07] MEDS: AZITHROMYCIN 500 MG TAB PO SCH (14:07)
--- NOTE | 2021-11-07 14:15 | P.CNPUL ---
History of Present Illness Consult date: 11/07/21 Requesting physician: Lul Garcia Reason for consult: COPD Chief complaint: Fever, weakness History of present illness: This is a pleasant 76-year-old male patient with a known history of COPD and chronic right hemidiaphragmatic elevation with previous plication. The patient does get recurrent right lung pneumonia. He is known to have some esophageal dysmotility and stricture and had undergone dilatation. He did have issues with recurrent aspiration. He was just discharged from here on 11/03/2021 after being treated for an acute right lower lobe pneumonia. At discharge he states he was doing well without any significant pulmonary issues. Recently he developed weakness, fever, nausea vomiting and presented here to the ER for the same. He denies any shortness of breath, cough or congestion. Chest x-ray condition of chronic elevated right hemidiaphragm. He did test positive for COVID-19. He was negative on 10/29/2021. White count 7.1. Hemoglobin 12.7. Lymphocytes 0.9. Sodium 135. Potassium 3.7. BUN 10. Creatinine 0.6. Troponin 0.02. He was initiated on Symbicort, DuoNeb inhalations, azithromycin and heparin for DVT prophylaxis. 0.9 normal saline at 75 ML's per hour. He is seen today in consultation in the emergency department. He is currently sitting up in a stretcher. Awake and alert in no acute distress. He denies any shortness of breath, cough or congestion. He is maintaining O2 saturation in the 90s on room air. He is feeling better today compared to yesterday. He is vaccinated and boosted. Review of Systems REVIEW OF SYSTEMS: CONSTITUTIONAL: Generalized weakness, fatigue. Denies any recent significant weight loss or weight gain. EYES: Denies change in vision. EARS, NOSE, MOUTH, THROAT: Denies headaches, denies sore throat. CARDIOVASCULAR: Denies chest pain, palpitations or syncopal episodes. RESPIRATORY: Denies shortness of breath, cough, congestion or hemoptysis. GASTROINTESTINAL: Nausea and vomiting GENITOURINARY: Denies hematuria, denies infections. MUSKULOSKELETAL: Denies pain, denies swelling. INTEGUMENTARY: Denies rash, denies eczema. NEUROLOGICAL: Denies recent memory loss, no recent seizure activity. PSYCHIATRIC: Denies anxiety, denies depression. HEMATOLOGIC/LYMPHATIC: Denies anemia, denies enlarged lymph nodes. 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 "Broken heart syndrome." Lower back stimulator. Last Myocardial Infarction Date:: 05/25/14 History of Any Multi-Drug Resistant Organisms: None Reported Past Surgical History: Adenoidectomy, Appendectomy, Back Surgery, Bowel Resection, Cholecystectomy, Heart Catheterization, Hernia Repair, Orthopedic Surgery, Tonsillectomy Additional Past Surgical History / Comment(s): EGD/colonoscopy, cardiac cathetrization X2, several back surgeries including laminectomy, spinous process removed T11 and T12/cage/arturo, bilateral arthroscopic knee surgeries, bilateral thumb surgeries with right titanium joint, left rotator cuff repair, several nasal polypectomies, pain procedures - RFA cervical/back, bilateral inguinal hernia repairs, right orchiectomy, diaphragmatic hernia repair, section of sigmoid colon removed, back stimulator put in left hip for back pain at [facility], right hand surgery. Past Anesthesia/Blood Transfusion Reactions: No Reported Reaction Past Psychological History: No Psychological Hx Reported Smoking Status: Former smoker Past Alcohol Use History: None Reported Past Drug Use History: None Reported - Past Family History Father Family Medical History: Cancer Additional Family Medical History / Comment(s): Father of stomach ca at the age of 65 yrs. Mother Family Medical History: No Reported History Additional Family Medical History / Comment(s): Mother of "old age". She was 83 yrs old. Brother(s) Family Medical History: Cancer, Diabetes Mellitus Additional Family Medical History / Comment(s): Brain tumor. Sister(s) Family Medical History: Cancer, Diabetes Mellitus Additional Family Medical History / Comment(s): Sisters breast cancer. Medications and Allergies Home Medications Medication Instructions Recorded Confirmed Type Albuterol Nebulized [Ventolin 2.5 mg INHALATION RT-BID PRN 08/16/21 11/07/21 History Nebulized] Nitroglycerin Sl Tabs [Nitrostat] 0.4 mg SL Q5M PRN 08/16/21 11/07/21 History Fluticasone Propion/Salmeterol 1 puff INHALATION RT-BID 09/08/21 11/07/21 History [Advair 500-50 Diskus] Omeprazole [PriLOSEC] 40 mg PO DAILY 09/08/21 11/07/21 History Albuterol Nebulized [Ventolin 2.5 mg INHALATION RT-BID 10/30/21 11/07/21 History Nebulized] Ipratropium-Albuterol Nebulize 3 ml INHALATION RT-BID 10/30/21 11/07/21 History [Duoneb 0.5 mg-3 mg/3 ml Soln] Ipratropium-Albuterol Nebulize 3 ml INHALATION RT-BID PRN 10/30/21 11/07/21 History [Duoneb 0.5 mg-3 mg/3 ml Soln] Azithromycin [Zithromax Tri-Duran (3 500 mg PO DAILY 3 Days #3 tab 11/03/21 11/07/21 Rx tabs)] Allergies Allergy/AdvReac Type Severity Reaction Status Date / Time celecoxib [From Celebrex] Allergy Unknown Verified 11/07/21 07:56 Iodinated Contrast Media Allergy Anaphylaxis Verified 11/07/21 07:56 [Iodinated Contrast Media - IV Dye] iodine Allergy Anaphylaxis Verified 11/07/21 07:56 Penicillins Allergy Anaphylaxis Verified 11/07/21 07:56 Sulfa (Sulfonamide Allergy Anaphylaxis Verified 11/07/21 07:56 Antibiotics) tramadol Allergy Swelling Verified 11/07/21 07:56 fentanyl AdvReac Severe SEVERE Verified 11/07/21 07:56 MIGRAINES adhesive AdvReac tears skin Verified 11/07/21 07:56 banana AdvReac HEADACHE Verified 11/07/21 07:56 chocolate flavor AdvReac TRIGGERS Verified 11/07/21 07:56 MIGRAINE duloxetine [From Cymbalta] AdvReac Headaches Verified 11/07/21 07:56 gabapentin AdvReac Confusion Verified 11/07/21 07:56 Opioids - Morphine Analogues AdvReac Migraine Verified 11/07/21 07:56 Opioids-Meperidine and AdvReac Migraine Verified 11/07/21 07:56 Related peanut AdvReac TRIGGERS Verified 11/07/21 07:56 MIGRAINES tree nut [Nut] AdvReac HEADACHE Verified 11/07/21 07:56 yellow dye AdvReac HEADACHE Verified 11/07/21 07:56 Physical Exam Vitals: Vital Signs Temp Pulse Resp BP Pulse Ox 11/07/21 10:00 58 L 16 139/72 100 11/07/21 08:19 98 11/07/21 06:00 60 15 144/76 100 11/07/21 05:00 58 L 15 143/72 98 11/07/21 04:00 61 17 119/64 97 11/07/21 01:00 67 16 148/100 100 11/07/21 00:20 98.7 F 65 17 147/76 97 11/06/21 23:20 99.0 F 87 17 165/76 98 11/06/21 23:15 98.9 F 77 18 176/92 97 Intake and Output 11/06/21 11/07/21 11/07/21 22:59 06:59 14:59 Other: Weight 68.039 kg GENERAL EXAM: Alert, pleasant 76-year-old gentleman, on room air, comfortable in no apparent distress. HEAD: Normocephalic. EYES: Normal reaction of pupils, equal size. NOSE: Clear with pink turbinates. THROAT: No erythema or exudates. NECK: No masses, no JVD. CHEST: No chest wall deformity. LUNGS: Equal air entry with no crackles, wheeze, rhonchi or dullness. Diminished right lung base CVS: S1 and S2 normal with no audible murmur, regular rhythm. ABDOMEN: No hepatosplenomegaly, normal bowel sounds, no guarding or rigidity. SPINE: No scoliosis or deformity SKIN: No rashes CENTRAL NERVOUS SYSTEM: No focal deficits, tone is normal in all 4 extremities. EXTREMITIES: There is no peripheral edema. No clubbing, no cyanosis. Peripheral pulses are intact. Results - Laboratory Findings CBC and BMP: 11/06/21 23:47 11/06/21 23:47 PT/INR, D-dimer PT 10.9 sec (9.0-12.0) 11/06/21 23:47 INR 1.0 (<1.2) 11/06/21 23:47 Abnormal lab findings: Abnormal Labs 11/06/21 11/06/21 11/06/21 23:47 23:47 23:49 RBC 3.91 L Hgb 12.7 L Hct 38.8 L Lymphocytes # 0.9 L Sodium 135 L Creatinine 0.60 L Calcium 8.1 L Total Protein 5.3 L Albumin 3.2 L Urine Ketones Coronavirus (PCR) Detected A 11/07/21 04:00 RBC Hgb Hct Lymphocytes # Sodium Creatinine Calcium Total Protein Albumin Urine Ketones 1+ H Coronavirus (PCR) - Diagnostic Findings Chest x-ray: image reviewed Assessment and Plan Assessment: COVID-19 infection with generalized weakness, fatigue, nausea, vomiting. No pulmonary complaints. No CoVID pneumonia noted. He is vaccinated and boosted. Recent hospitalization for suspected right lower lobe pneumonia due to chronic aspiration recurrent pneumonias. Discharged on 11/03/2021. CoVID screen negative at that time. 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 He had significant wall motion abnormalities. History of bowel resection Former smoker Multiple orthopedic surgeries Plan: The patient was seen and evaluated Chest x-ray, medications and labs reviewed The patient has no pulmonary complaints at this time Stable and on room air Check a pro-calcitonin Home once cleared by medicine I have personally seen and examined the patient, performed the documentation and the assessment and plan as written. Number of minutes spent on the visit: 20.
[2021-11-07 15:16] LABS: Basophils # (A) 0.04 X 10*3/uL (0.00-0.10); Basophils % (A) 0.7 %; Eosinophils # (A) 0.18 X 10*3/uL (0.04-0.35); Eosinophils % (A) 3.2 %; HCT 38.6 % (39.6-50.0); HGB 12.9 g/dL (13.0-17.0); Immature Grans, Automated 0.9 %; Lymphocytes # (A) 1.27 X 10*3/uL (0.90-5.00); Lymphocytes % (A) 22.2 %; MCH 33.2 pg (27.0-32.0); MCHC 33.4 g/dL (32.0-37.0); MCV 99.5 fL (80.0-97.0); Mean Platelet Volume 11.5 fL (9.5-12.2); Monocytes # (A) 0.66 X 10*3/uL (0.20-1.00); Monocytes % (A) 11.6 %; NRBC Per 100 WBC 0 /100 WBCS (0.0-0.0); Neutrophils # (A) 3.51 X 10*3/uL (1.80-7.70); Neutrophils % (A) 61.4 %; Platelet Count 234 X 10*3/uL (140-440); RBC 3.88 X 10*6/uL (4.40-5.60); RDW 13.5 % (11.5-14.5); WBC 5.71 X 10*3/uL (4.50-10.00)
[2021-11-07] MEDS: ALBUTEROL HFA INHALER INHALATION PRN (20:42)
[2021-11-07] MEDS: HEPARIN SODIUM,PORCINE/PF 5,000 UNIT/0.5 ML SYRINGE SQ SCH (21:46)
[2021-11-08] MEDS: SODIUM CHLORIDE 0.9% 1,000 ML IV SCH (05:14)
[2021-11-08 06:40] VITALS: BP 155/81; PULSE 59; RESP 17; TEMP 97.7
[2021-11-08] MEDS: SYMBICORT 160-4.5 MCG INHALER INHALATION SCH (07:22)
[2021-11-08] MEDS: ALBUTEROL HFA INHALER INHALATION PRN (07:22)
[2021-11-08] MEDS: AZITHROMYCIN 500 MG TAB PO SCH (08:20)
[2021-11-08] MEDS: HEPARIN SODIUM,PORCINE/PF 5,000 UNIT/0.5 ML SYRINGE SQ SCH (08:20)
[2021-11-08] MEDS: PANTOPRAZOLE 40 MG TABLET PO SCH (08:20)
--- NOTE | 2021-11-08 08:25 | P.DS ---
Providers Date of admission: 11/07/21 00:56 Attending physician: Lul Garcia Consults: 11/07/21 12:31 Consult Physician Routine Consulting Provider: Bharath Medrano Consult Reason/Comments: Covid pneumonia/COPD Do you want consulting provider notified?: Yes Primary care physician: Lul Garcia - Discharge Diagnosis(es) (1) COVID Current Visit: Yes Status: Acute (2) Acute respiratory failure Current Visit: No Status: Acute (3) At risk for readmission to hospital Current Visit: No Status: Acute (4) Dyspnea Current Visit: No Status: Acute Hospital Course: This 76-year-old white male with recent left lower lobe pneumonia the patient had significant headache yesterday and suppository coated. The patient has not been stabilized. No shortness of breath at this time. The patient ambulated without difficulty and voiding without issue and has been cleared by pulmonology. The patient will be sent home with appropriate medication and follow-up with me in about a week Patient Condition at Discharge: Stable Plan - Discharge Summary Discharge Rx Participant: No New Discharge Prescriptions: New Nirmatrelvir/Ritonavir [Paxlovid 300-100 mg Pack (Eua)] 1 each PO BID #30 each Continue Albuterol Nebulized [Ventolin Nebulized] 2.5 mg INHALATION RT-BID PRN PRN Reason: Shortness Of Breath Ipratropium-Albuterol Nebulize [Duoneb 0.5 mg-3 mg/3 ml Soln] 3 ml INHALATION RT-BID Azithromycin [Zithromax Tri-Duran (3 tabs)] 500 mg PO DAILY 3 Days #3 tab Nitroglycerin Sl Tabs [Nitrostat] 0.4 mg SL Q5M PRN PRN Reason: Chest Pain Omeprazole [PriLOSEC] 40 mg PO DAILY Fluticasone Propion/Salmeterol [Advair 500-50 Diskus] 1 puff INHALATION RT- BID Albuterol Nebulized [Ventolin Nebulized] 2.5 mg INHALATION RT-BID Ipratropium-Albuterol Nebulize [Duoneb 0.5 mg-3 mg/3 ml Soln] 3 ml INHALATION RT-BID PRN PRN Reason: Shortness Of Breath Discharge Medication List Albuterol Nebulized [Ventolin Nebulized] 2.5 mg INHALATION RT-BID PRN 08/16/21 [ History] Nitroglycerin Sl Tabs [Nitrostat] 0.4 mg SL Q5M PRN 08/16/21 [History] Fluticasone Propion/Salmeterol [Advair 500-50 Diskus] 1 puff INHALATION RT-BID 09/08/21 [History] Omeprazole [PriLOSEC] 40 mg PO DAILY 09/08/21 [History] Albuterol Nebulized [Ventolin Nebulized] 2.5 mg INHALATION RT-BID 10/30/21 [History] Ipratropium-Albuterol Nebulize [Duoneb 0.5 mg-3 mg/3 ml Soln] 3 ml INHALATION RT-BID 10/30/21 [History] Ipratropium-Albuterol Nebulize [Duoneb 0.5 mg-3 mg/3 ml Soln] 3 ml INHALATION RT-BID PRN 10/30/21 [History] Azithromycin [Zithromax Tri-Duran (3 tabs)] 500 mg PO DAILY 3 Days #3 tab 11/03/21 [Rx] Nirmatrelvir/Ritonavir [Paxlovid 300-100 mg Pack (Eua)] 1 each PO BID #30 each 11/08/21 [Rx] Follow up Appointment(s)/Referral(s): Lul Garcia MD [Primary Care Provider] - 1 Week Discharge Disposition: HOME SELF-CARE
[2021-11-08 09:16] LABS: HCT 34.7 % (39.6-50.0); HGB 11.5 g/dL (13.0-17.0); MCH 32.4 pg (27.0-32.0); MCHC 33.1 g/dL (32.0-37.0); MCV 97.7 fL (80.0-97.0); NRBC Per 100 WBC 0 /100 WBCS (0.0-0.0); Platelet Count 262 X 10*3/uL (140-440); RBC 3.55 X 10*6/uL (4.40-5.60); RDW 13.5 % (11.5-14.5); WBC 4.94 X 10*3/uL (4.50-10.00)
--- NOTE | 2021-11-09 07:33 | PN ---
PROGRESS NOTE This is a Pulmonary/Critical Care Progress Note. This is a very pleasant 76-year-old male seen in the emergency room yesterday with coronavirus infection, but without COVID-associated pneumonia. He does have a history of known COPD. The patient is currently on room air. He is not receiving any IV fluids. When we saw him yesterday in the emergency room, he was feeling pretty much back to normal and we thought he could be possibly discharged. He was recently in the hospital, for an acute right lower lobe pneumonia. Anyway, was doing relatively well yesterday, and even better today. His primary care provider is . PHYSICAL EXAMINATION: VITAL SIGNS: Current vital signs include a respiratory rate 16, blood pressure 127/72, heart rate of 88, saturation of 96% on room air. GENERAL: Appears in no acute distress. No respiratory distress. HEENT: Grossly unremarkable. NECK: Supple. Full range of motion. No adenopathy or thyromegaly. Neck veins are flat. CARDIOVASCULAR: Reveals regular rhythm and rate. Heart rate in the low 80s. LUNGS: Clear breath sounds equal. No wheezes, rhonchi, or crackles. ABDOMEN: Soft, bowel sounds are heard. No masses or tenderness. EXTREMITIES: Intact. No cyanosis, clubbing, or edema. SKIN: Without rash. NEUROLOGIC: Nonfocal. Labs, x-rays, and medications are all reviewed. ASSESSMENT: 1. Coronavirus infection, with general viral symptoms, but without coronavirus- associated pneumonia. 2. Recent hospitalization for suspected right lower lobe pneumonia. 3. History of dysphagia, secondary to esophageal stricture and esophageal dysmotility, status post dilatation, possible intermittent aspiration. 4. Advanced chronic obstructive pulmonary disease with an FEV1 that is 43% of predicted. 5. Nonocclusive coronary artery disease. 6. History of right hemidiaphragm paralysis post plication. 7. History of bladder cancer with excision. 8. History of migraine cephalgia. 9. History of Diego's palsy. 10.History of takotsubo syndrome. 11.History of bowel resection. 12.History of former smoker. 13.History of multiple orthopedic procedures. PLAN: The patient is stable. He should follow up with my partner post discharge. He has no pulmonary complaints at this time. He does use an albuterol inhaler at home along with inhaler called Trelegy. No additional recommendations are made. Prognosis is guarded. MMODL / IJN: [id number] /
== END 2021-11-08 11:25 | disposition home or self-care (01) | DRG 177 ==
LOC: EC 23:08 → 4SSUR 11-07 00:56
PROVIDERS: ADMIT Family Medicine; ATTEND Family Medicine
DX: U07.1 COVID-19 (principal); J96.00 Acute respiratory failure, unspecified whether with hypoxia or hypercapnia; I51.81 Takotsubo syndrome; J44.0 Chronic obstructive pulmonary disease with (acute) lower respiratory infection; F11.21 Opioid dependence, in remission; J98.6 Disorders of diaphragm; K22.2 Esophageal obstruction; G43.909 Migraine, unspecified, not intractable, without status migrainosus; I25.10 Atherosclerotic heart disease of native coronary artery without angina pectoris; I45.10 Unspecified right bundle-branch block; I44.4 Left anterior fascicular block; K22.4 Dyskinesia of esophagus; R26.2 Difficulty in walking, not elsewhere classified; Z96.691 Finger-joint replacement of right hand; Z87.01 Personal history of pneumonia (recurrent); Z86.16 Personal history of COVID-19; Z79.899 Other long term (current) drug therapy; Z88.8 Allergy status to other drugs, medicaments and biological substances; Z91.041 Radiographic dye allergy status; Z88.0 Allergy status to penicillin; Z88.2 Allergy status to sulfonamides; Z88.5 Allergy status to narcotic agent; Z91.048 Other nonmedicinal substance allergy status; Z91.018 Allergy to other foods; Z91.02 Food additives allergy status; Z91.010 Allergy to peanuts; Z85.51 Personal history of malignant neoplasm of bladder; Z85.47 Personal history of malignant neoplasm of testis; Z87.19 Personal history of other diseases of the digestive system; I25.2 Old myocardial infarction; Z92.3 Personal history of irradiation; Z90.89 Acquired absence of other organs; Z90.49 Acquired absence of other specified parts of digestive tract; Z98.890 Other specified postprocedural states; Z90.79 Acquired absence of other genital organ(s); Z96.82 Presence of neurostimulator; Z98.1 Arthrodesis status; Z87.891 Personal history of nicotine dependence; Z80.0 Family history of malignant neoplasm of digestive organs; Z83.3 Family history of diabetes mellitus; Z80.3 Family history of malignant neoplasm of breast; Z84.89 Family history of other specified conditions
CPT/HCPCS: 36415; 71046; 80053; 81003; 84145; 84484; 85025; 85027; 85610; 85730; 87040; 87635; 93005; 94640; 94760; 99285

== ENCOUNTER 2021-12-07 10:11 | Day surgery (SDC) | payer MEDICARE ==
[2021-12-06 09:38] VITALS: BMI 21.5
--- NOTE | 2021-12-07 07:49 | P.GSHP ---
History of Present Illness H&P Date: 12/07/21 CHIEF COMPLAINT: Esophageal stricture HISTORY OF PRESENT ILLNESS: The patient is a 76-year-old male who presents reports dysphagia. Upper endoscopy was offered for further evaluation and management. PAST MEDICAL HISTORY: Please see list. PAST SURGICAL HISTORY: Please see list. MEDICATIONS: Please see list. ALLERGIES: Please see list. SOCIAL HISTORY: No illicit drug use FAMILY HISTORY: No reports of Crohn disease or ulcerative colitis. REVIEW OF ORGAN SYSTEMS: CONSTITUTIONAL: No reports of fevers or chills. GI: Denies any blood in stools or constipation. PHYSICAL EXAM: VITAL SIGNS: Stable GENERAL: Well-developed and pleasant in no acute distress. HEENT: No scleral icterus. Extraocular movements grossly intact. Moist buccal mucosa. NECK: Supple without lymphadenopathy. CHEST: Unlabored respirations. Equal bilateral excursions. CARDIOVASCULAR: Regular rate and rhythm. Distal 2+ pulses. ABDOMEN: Soft, nondistended. MUSCULOSKELETAL: No clubbing, cyanosis, or edema. ASSESSMENT: 1. Esophageal stricture PLAN: 1. Recommend proceeding with an upper endoscopy with rigid dilators. 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 "Broken heart syndrome." Lower back stimulator. Last Myocardial Infarction Date:: 05/25/14 History of Any Multi-Drug Resistant Organisms: None Reported Past Surgical History: Adenoidectomy, Appendectomy, Back Surgery, Bowel Resection, Cholecystectomy, Heart Catheterization, Hernia Repair, Orthopedic Surgery, Tonsillectomy Additional Past Surgical History / Comment(s): EGD/colonoscopy, cardiac cathetrization X2, several back surgeries including laminectomy, spinous process removed T11 and T12/cage/arturo, bilateral arthroscopic knee surgeries, bilateral thumb surgeries with right titanium joint, left rotator cuff repair, several nasal polypectomies, pain procedures - RFA cervical/back, bilateral inguinal hernia repairs, right orchiectomy, diaphragmatic hernia repair, section of sigmoid colon removed, back stimulator put in left hip for back pain at [facility], right hand surgery. Past Anesthesia/Blood Transfusion Reactions: No Reported Reaction Past Psychological History: No Psychological Hx Reported Smoking Status: Former smoker Past Alcohol Use History: None Reported Additional Past Alcohol Use History / Comment(s): Started smoking in 1959 and quit in 2003, smoked 1 1/2ppd. Past Drug Use History: None Reported - Past Family History Father Family Medical History: Cancer Additional Family Medical History / Comment(s): Father of stomach cancer at the age of 65 yrs. Mother Family Medical History: No Reported History Additional Family Medical History / Comment(s): Mother of "old age". She was 83 yrs old. Brother(s) Family Medical History: Cancer, Diabetes Mellitus Additional Family Medical History / Comment(s): Brain tumor. Sister(s) Family Medical History: Cancer, Diabetes Mellitus Additional Family Medical History / Comment(s): Sisters breast cancer. Medications and Allergies Home Medications Medication Instructions Recorded Confirmed Type Albuterol Nebulized [Ventolin 2.5 mg INHALATION BID 08/16/21 12/06/21 History Nebulized] Nitroglycerin Sl Tabs [Nitrostat] 0.4 mg SL Q5M PRN 08/16/21 12/06/21 History Fluticasone Propion/Salmeterol 1 puff INHALATION BID 09/08/21 12/06/21 History [Advair 500-50 Diskus] Omeprazole [PriLOSEC] 40 mg PO DAILY 09/08/21 12/06/21 History Ipratropium-Albuterol Nebulize 3 ml INHALATION BID 10/30/21 12/06/21 History [Duoneb 0.5 mg-3 mg/3 ml Soln] Allergies Allergy/AdvReac Type Severity Reaction Status Date / Time celecoxib [From Celebrex] Allergy Unknown Verified 12/06/21 09:40 Iodinated Contrast Media Allergy Anaphylaxis Verified 12/06/21 09:40 [Iodinated Contrast Media - IV Dye] iodine Allergy Anaphylaxis Verified 12/06/21 09:40 Penicillins Allergy Anaphylaxis Verified 12/06/21 09:40 Sulfa (Sulfonamide Allergy Anaphylaxis Verified 12/06/21 09:40 Antibiotics) tramadol Allergy Swelling Verified 12/06/21 09:40 fentanyl AdvReac Severe SEVERE Verified 12/06/21 09:40 MIGRAINES adhesive AdvReac tears skin Verified 12/06/21 09:40 chocolate flavor AdvReac TRIGGERS Verified 12/06/21 09:40 MIGRAINE duloxetine [From Cymbalta] AdvReac Headaches Verified 12/06/21 09:40 gabapentin AdvReac Confusion Verified 12/06/21 09:40 Opioids - Morphine Analogues AdvReac Migraine Verified 12/06/21 09:40 Opioids-Meperidine and AdvReac Migraine Verified 12/06/21 09:40 Related peanut AdvReac TRIGGERS Verified 12/06/21 09:40 MIGRAINES tree nut [Nut] AdvReac HEADACHE Verified 12/06/21 09:40 yellow dye AdvReac HEADACHE Verified 12/06/21 09:40
[~2021-12-07 10:11] MED LIST changes: -LIDOCAINE 1% (10MG/ML) FOR IV START INTRADERMA PRN
[2021-12-07 10:49] VITALS: RESP 16; TEMP 97.1
[2021-12-07] MEDS ORDERED: LIDOCAINE 2% INJ 20 MG/ML (2 ML VIAL) ONE (11:33)
[2021-12-07] MEDS ORDERED: PROPOFOL 10 MG/ML 20 ML VIAL IV ONE (11:33)
--- NOTE | 2021-12-07 11:46 | P.PCN ---
Date of Procedure: 12/07/21 Description of Procedure: PREOPERATIVE DIAGNOSIS: Dysphagia. Esophageal stricture Esophageal dysmotility POSTOPERATIVE DIAGNOSIS: Dysphagia. Esophageal stricture Esophageal dysmotility OPERATION: Esophagogastroduodenoscopy with rigid dilator over the guidewire 54 Fr. SURGEON: Bonnie Padilla MD ANESTHESIA: MAC. INDICATIONS: The patient is a 76-year-old male who presents with a history of dysphagia. Benefits and risks of the procedure were described. Informed consent was obtained. DESCRIPTION: The patient was brought into the endoscopy suite and laid in the left lateral decubitus position. After a timeout was confirmed, the procedure was initiated. An Olympus gastroscope was passed and the stomach was entered. The scope was advanced to the duodenum which was unremarkable. Next using an Mongolian rigid dilator, a guidewire was placed through the gastroscope. Next the scope was withdrawn. A 54-German rigid Mongolian dilator was passed carefully along the posterior oropharynx to 50 cm and left in place for 2 minutes stretch. The dilator was withdrawn including the guidewire. The scope was reentered along the posterior oropharynx with no findings of full- thickness tear of the upper esophageal sphincter. No full-thickness injury was encountered. The GI tract was desufflated. The patient tolerated the procedure well. FINDINGS: Mongolian rigid dilator 54-German completed. Tertiary consistent with presbyesophagus RECOMMENDATIONS: Upper endoscopy as needed Plan - Discharge Summary Discharge Rx Participant: No New Discharge Prescriptions: Continue Albuterol Nebulized [Ventolin Nebulized] 2.5 mg INHALATION BID Nitroglycerin Sl Tabs [Nitrostat] 0.4 mg SL Q5M PRN PRN Reason: Chest Pain Omeprazole [PriLOSEC] 40 mg PO DAILY Fluticasone Propion/Salmeterol [Advair 500-50 Diskus] 1 puff INHALATION BID Ipratropium-Albuterol Nebulize [Duoneb 0.5 mg-3 mg/3 ml Soln] 3 ml INHALATION BID Discharge Medication List Albuterol Nebulized [Ventolin Nebulized] 2.5 mg INHALATION BID 08/16/21 [History] Nitroglycerin Sl Tabs [Nitrostat] 0.4 mg SL Q5M PRN 08/16/21 [History] Fluticasone Propion/Salmeterol [Advair 500-50 Diskus] 1 puff INHALATION BID 07/15/22 [History] Omeprazole [PriLOSEC] 40 mg PO DAILY 09/08/21 [History] Ipratropium-Albuterol Nebulize [Duoneb 0.5 mg-3 mg/3 ml Soln] 3 ml INHALATION BID 10/30/21 [History] Follow up Appointment(s)/Referral(s): Bonnie Padilla MD [STAFF PHYSICIAN] - As Needed Patient Instructions/Handouts: Esophageal Dilation (DC) Discharge Disposition: HOME SELF-CARE
[2021-12-07 12:05] VITALS: BP 123/70; PULSE 69
== END 2021-12-07 12:22 | disposition home or self-care (01) ==
LOC: ORWHC2ENDO 10:11
PROVIDERS: ATTEND Surgery Plastic and Reconstructive Surgery
DX: K22.2 Esophageal obstruction (principal); I25.2 Old myocardial infarction; K21.9 Gastro-esophageal reflux disease without esophagitis; K22.4 Dyskinesia of esophagus; J44.9 Chronic obstructive pulmonary disease, unspecified; Z79.51 Long term (current) use of inhaled steroids; Z80.3 Family history of malignant neoplasm of breast; Z83.3 Family history of diabetes mellitus; Z85.47 Personal history of malignant neoplasm of testis; Z85.51 Personal history of malignant neoplasm of bladder; Z87.891 Personal history of nicotine dependence; Z88.0 Allergy status to penicillin; Z88.2 Allergy status to sulfonamides; Z88.5 Allergy status to narcotic agent; Z88.6 Allergy status to analgesic agent; Z88.8 Allergy status to other drugs, medicaments and biological substances; Z90.49 Acquired absence of other specified parts of digestive tract; Z90.79 Acquired absence of other genital organ(s)
CPT/HCPCS: 43248; J2704; J2001

== ENCOUNTER 2021-12-25 14:15 | Observation (INO) | payer MEDICARE ==
[2021-12-25] MEDS ORDERED: SODIUM CHLORIDE 0.9% 1,000 ML IV STA (19:12)
--- NOTE | 2021-12-25 19:20 | ED ---
Extremity Problem HPI - General Chief complaint: Extremity Problem,Nontraumatic Stated complaint: Rt. foot problems,sent by PCP Time Seen by Provider: 12/25/21 19:06 Source: patient, RN notes reviewed Mode of arrival: ambulatory Limitations: no limitations - History of Present Illness Initial comments: This is a pleasant 76-year-old male with a history of COPD. He presents to the emergency room today complaining of infection to his right foot. Patient states this started a few weeks ago. He saw his regular physician and was tried on some antifungal cream. However this he irritated his foot so they stopped it.. Apparently he saw his doctor today was sent here for admission for foot infection. Patient is not immune compromised, is not diabetic, is not on immunosuppressive medication. No fever. States she has felt a bit fatigued, other than that no other symptoms. She is complaining of some itching to the area and some skin irritation with minimal bleeding and discharge. No headache, no fever or chills, no changes in vision or hearing, no sore throat or difficulty with speech, no neck pain, no chest pain or shortness of breath, no abdominal pain, no nausea or vomiting, no changes in urination or bowel movements, no numbness or tingling, no extremity pain, no skin rashes or lesions. Past medical, surgical, social, and family history reviewed. - Related Data Home Medications Medication Instructions Recorded Confirmed Albuterol Nebulized [Ventolin 2.5 mg INHALATION BID 08/16/21 12/07/21 Nebulized] Nitroglycerin Sl Tabs [Nitrostat] 0.4 mg SL Q5M PRN 08/16/21 12/07/21 Fluticasone Propion/Salmeterol 1 puff INHALATION BID 09/08/21 12/07/21 [Advair 500-50 Diskus] Omeprazole [PriLOSEC] 40 mg PO DAILY 09/08/21 12/07/21 Ipratropium-Albuterol Nebulize 3 ml INHALATION BID 10/30/21 12/07/21 [Duoneb 0.5 mg-3 mg/3 ml Soln] Allergies Allergy/AdvReac Type Severity Reaction Status Date / Time celecoxib [From Celebrex] Allergy Unknown Verified 12/25/21 14:52 Iodinated Contrast Media Allergy Anaphylaxis Verified 12/25/21 14:52 [Iodinated Contrast Media - IV Dye] iodine Allergy Anaphylaxis Verified 12/25/21 14:52 Penicillins Allergy Anaphylaxis Verified 12/25/21 14:52 Sulfa (Sulfonamide Allergy Anaphylaxis Verified 12/25/21 14:52 Antibiotics) tramadol Allergy Swelling Verified 12/25/21 14:52 fentanyl AdvReac Severe SEVERE Verified 12/25/21 14:52 MIGRAINES adhesive AdvReac tears skin Verified 12/25/21 14:52 chocolate flavor AdvReac TRIGGERS Verified 12/25/21 14:52 MIGRAINE duloxetine [From Cymbalta] AdvReac Headaches Verified 12/25/21 14:52 gabapentin AdvReac Confusion Verified 12/25/21 14:52 Opioids - Morphine Analogues AdvReac Migraine Verified 12/25/21 14:52 Opioids-Meperidine and AdvReac Migraine Verified 12/25/21 14:52 Related peanut AdvReac TRIGGERS Verified 12/25/21 14:52 MIGRAINES tree nut [Nut] AdvReac HEADACHE Verified 12/25/21 14:52 yellow dye AdvReac HEADACHE Verified 12/25/21 14:52 Review of Systems ROS Statement: Those systems with pertinent positive or pertinent negative responses have been documented in the HPI. ROS Other: All systems not noted in ROS Statement are negative. 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 "Broken heart syndrome." Lower back stimulator. Last Myocardial Infarction Date:: 05/25/14 History of Any Multi-Drug Resistant Organisms: None Reported Past Surgical History: Adenoidectomy, Appendectomy, Back Surgery, Bowel Resection, Cholecystectomy, Heart Catheterization, Hernia Repair, Orthopedic Surgery, Tonsillectomy Additional Past Surgical History / Comment(s): EGD/colonoscopy, cardiac cathetrization X2, several back surgeries including laminectomy, spinous process removed T11 and T12/cage/arturo, bilateral arthroscopic knee surgeries, bilateral thumb surgeries with right titanium joint, left rotator cuff repair, several nasal polypectomies, pain procedures - RFA cervical/back, bilateral inguinal hernia repairs, right orchiectomy, diaphragmatic hernia repair, section of sigmoid colon removed, back stimulator put in left hip for back pain at [facility], right hand surgery. Past Anesthesia/Blood Transfusion Reactions: No Reported Reaction Past Psychological History: No Psychological Hx Reported Smoking Status: Former smoker Past Alcohol Use History: None Reported Past Drug Use History: None Reported - Past Family History Father Family Medical History: Cancer Additional Family Medical History / Comment(s): Father of stomach cancer at the age of 65 yrs. Mother Family Medical History: No Reported History Additional Family Medical History / Comment(s): Mother of "old age". She was 83 yrs old. Brother(s) Family Medical History: Cancer, Diabetes Mellitus Additional Family Medical History / Comment(s): Brain tumor. Sister(s) Family Medical History: Cancer, Diabetes Mellitus Additional Family Medical History / Comment(s): Sisters breast cancer. General Exam Limitations: no limitations General appearance: alert, in no apparent distress Head exam: Present: atraumatic, normocephalic, normal inspection Eye exam: Present: normal appearance, PERRL, EOMI. Absent: scleral icterus, c onjunctival injection, periorbital swelling ENT exam: Present: normal exam, mucous membranes moist Neck exam: Present: normal inspection, full ROM. Absent: tenderness, meningismus, lymphadenopathy Respiratory exam: Present: normal lung sounds bilaterally. Absent: respiratory distress, wheezes, rales, rhonchi, stridor Cardiovascular Exam: Present: regular rate, normal rhythm, normal heart sounds. Absent: systolic murmur, diastolic murmur, rubs, gallop, clicks GI/Abdominal exam: Present: soft, normal bowel sounds. Absent: distended, tenderness, guarding, rebound, rigid Extremities exam: Present: full ROM, normal capillary refill, other (Pulses intact). Absent: normal inspection (Patient has an erythematous, papular, somewhat excoriated skin rash to his right foot and toes. Possibly crusted over vesicles is some surrounding erythema), tenderness, pedal edema, joint swelling, calf tenderness Back exam: Present: normal inspection Neurological exam: Present: alert, oriented X3, CN II-XII intact Psychiatric exam: Present: normal affect, normal mood Skin exam: Present: warm, dry, intact, normal color. Absent: rash Course Vital Signs 12/25/21 14:50 Temperature 97.9 F Pulse Rate 71 Respiratory 20 Rate Blood Pressure 149/82 O2 Sat by Pulse 99 Oximetry - Reevaluation(s) Reevaluation #1: 12/25/21 21:52 CBC was normal, sodium slightly low at 136. Potassium 5.3 but was hemolyzed. Remainder of the patient's workup is essentially normal to include x-ray. Reevaluated after pain medication. Improved, hemodynamically stable. - Consultations Consultation #1: Case discussed with who agrees to admit the patient for observation and IV antibiotics Medical Decision Making - Medical Decision Making Infectious process of the right foot. Does not appear to be related to vascular insult. By the appearance may be fungal. Although secondary bacterial infection not out of the question. We'll order blood work, wound cultures, blood cultures, inflammatory markers, x-ray, planned for reevaluation. Patient's rash appears to be crusted over vesicular eruption withsecondary cellulitis. Patient treated with IV doxycycline here in the emergency department. We'll cover for MRSA. We'll have the patient seen by infectious disease as well. Discussed the case with the PCP who accepts admission. The case was discussed in detail with ED attending physician. Presentation, findings, treatment plan discussed in detail. [employer]ologist, Dr. Reeves - Lab Data Result diagrams: 12/25/21 20:56 12/25/21 20:56 Lab Results 12/25/21 12/25/21 12/25/21 Range/Units 20:56 20:56 20:56 WBC 5.6 (3.8-10.6) k/uL RBC 4.67 (4.30-5.90) m/uL Hgb 15.2 (13.0-17.5) gm/dL Hct 44.7 (39.0-53.0) % MCV 95.7 (80.0-100.0) fL MCH 32.6 (25.0-35.0) pg MCHC 34.1 (31.0-37.0) g/dL RDW 13.7 (11.5-15.5) % Plt Count 188 (150-450) k/uL MPV 8.5 Neutrophils % 59 % Lymphocytes % 26 % Monocytes % 8 % Eosinophils % 4 % Basophils % 1 % Neutrophils # 3.3 (1.3-7.7) k/uL Lymphocytes # 1.4 (1.0-4.8) k/uL Monocytes # 0.5 (0-1.0) k/uL Eosinophils # 0.2 (0-0.7) k/uL Basophils # 0.1 (0-0.2) k/uL Sodium 136 L (137-145) mmol/L Potassium 5.3 H (3.5-5.1) mmol/L Chloride 102 (98-107) mmol/L Carbon Dioxide 23 (22-30) mmol/L Anion Gap 11 mmol/L BUN 17 (9-20) mg/dL Creatinine 0.64 L (0.66-1.25) mg/dL Est GFR (CKD-EPI)AfAm >90 (>60 ml/min/1.73 sqM) Est GFR (CKD-EPI)NonAf >90 (>60 ml/min/1.73 sqM) Glucose 138 H (74-99) mg/dL Plasma Lactic Acid Finesse 1.3 (0.7-2.0) mmol/L Calcium 9.1 (8.4-10.2) mg/dL Total Bilirubin 1.2 (0.2-1.3) mg/dL AST 49 (17-59) U/L ALT 24 (4-49) U/L Alkaline Phosphatase 90 (38-126) U/L C-Reactive Protein <0.5 (<1.0) mg/dL Total Protein 7.5 (6.3-8.2) g/dL Albumin 4.8 (3.5-5.0) g/dL Disposition Clinical Impression: Cellulitis of right foot, Rash of foot Disposition: ADMITTED IP TO THIS [facility] Condition: Stable Is patient prescribed a controlled substance at d/c from ED?: No Referrals: Lul Garcia MD [Primary Care Provider] - 1-2 days Time of Disposition: 20:51 Decision to Admit Reason: Admit from EC Decision Time: 20:51
--- NOTE | 2021-12-25 20:08 | XR ---
EXAMINATION TYPE: XR foot complete RT DATE OF EXAM: 12/25/2021 COMPARISON: NONE HISTORY: Infection. Pain and swelling TECHNIQUE: 3 views FINDINGS: The metatarsals are intact. The toes are intact. I see no fracture nor dislocation. The tar sometatarsal joints are intact. IMPRESSION: Negative right foot exam. No fracture seen.
[2021-12-25] MEDS ORDERED: DOXYCYCLINE 100 MG in SODIUM CHLORIDE 0.9% 100 ML IVPB ONE (20:50)
[2021-12-25] MEDS ORDERED: MORPHINE SULFATE 4 MG/ML SYRINGE IV STA (20:50)
[2021-12-25] MEDS ORDERED: KETOROLAC 15 MG/ML 1 ML VIAL IVP STA (20:50)
[2021-12-25] MEDS ORDERED: ONDANSETRON 4 MG/2 ML VIAL IVP STA (20:50)
[2021-12-25 21:21] LABS: Basophils # (A) 0.1 k/uL (0-0.2); Basophils % (A) 1 %; Eosinophils # (A) 0.2 k/uL (0-0.7); Eosinophils % (A) 4 %; HCT 44.7 % (39.0-53.0); HGB 15.2 gm/dL (13.0-17.5); Lymphocytes # (A) 1.4 k/uL (1.0-4.8); Lymphocytes % (A) 26 %; MCH 32.6 pg (25.0-35.0); MCHC 34.1 g/dL (31.0-37.0); MCV 95.7 fL (80.0-100.0); Mean Platelet Volume 8.5; Monocytes # (A) 0.5 k/uL (0-1.0); Monocytes % (A) 8 %; Neutrophils # (A) 3.3 k/uL (1.3-7.7); Neutrophils % (A) 59 %; Platelet Count 188 k/uL (150-450); RBC 4.67 m/uL (4.30-5.90); RDW 13.7 % (11.5-15.5); WBC 5.6 k/uL (3.8-10.6)
[2021-12-25 21:27] LABS: ALT 24 U/L (4-49); AST 49 U/L (17-59); African American GFR (CKD) >90 (>60 ml/min/1.73 sqM); Albumin 4.8 g/dL (3.5-5.0); Alkaline Phosphatase 90 U/L (38-126); Anion Gap 11 mmol/L; Blood Urea Nitrogen 17 mg/dL (9-20); C Reactive Protein <0.5 mg/dL (<1.0); Calcium 9.1 mg/dL (8.4-10.2); Carbon Dioxide 23 mmol/L (22-30); Chloride 102 mmol/L (98-107); Glucose 138 mg/dL (74-99); Non-African American GFR(CKD) >90 (>60 ml/min/1.73 sqM); Sodium 136 mmol/L (137-145); Total Bilirubin 1.2 mg/dL (0.2-1.3); Total Protein 7.5 g/dL (6.3-8.2)
[2021-12-25 21:45] LABS: Potassium 5.3 mmol/L (3.5-5.1)
[2021-12-25] MEDS ORDERED: NALOXONE 0.4 MG/ML 1 ML VIAL IV PRN (21:54)
[2021-12-25] MEDS ORDERED: ONDANSETRON 4 MG/2 ML VIAL IVP PRN (21:54)
[2021-12-25] MEDS ORDERED: NITROGLYCERIN SL TABS 0.4 MG TAB SUBLINGUAL PRN (21:57)
[2021-12-25] MEDS: SODIUM CHLORIDE 0.9% 1,000 ML IV SCH (22:54)
[2021-12-25] MEDS ORDERED: IPRATROPIUM-ALBUTEROL 3 ML NEB INHALATION PRN (23:32)
[2021-12-25] MEDS: MORPHINE SULFATE 4 MG/ML SYRINGE IV PRN (23:39)
[2021-12-26] MEDS: MORPHINE SULFATE 4 MG/ML SYRINGE IV PRN (03:48)
[2021-12-26 06:20] LABS: African American GFR (CKD) >90 (>60 ml/min/1.73 sqM); Anion Gap 7 mmol/L; Blood Urea Nitrogen 17 mg/dL (9-20); Calcium 8.2 mg/dL (8.4-10.2); Carbon Dioxide 26 mmol/L (22-30); Chloride 106 mmol/L (98-107); Glucose 90 mg/dL (74-99); Non-African American GFR(CKD) >90 (>60 ml/min/1.73 sqM); Potassium 4.4 mmol/L (3.5-5.1); Sodium 139 mmol/L (137-145)
[2021-12-26] MEDS: PANTOPRAZOLE 40 MG TABLET PO SCH (06:22)
[2021-12-26] MEDS: HEPARIN SODIUM,PORCINE/PF 5,000 UNIT/0.5 ML SYRINGE SQ SCH ×2 (06:22→20:46)
[2021-12-26 06:57] LABS: HCT 41.7 % (39.0-53.0); HGB 13.9 gm/dL (13.0-17.5); MCH 32.9 pg (25.0-35.0); MCHC 33.3 g/dL (31.0-37.0); MCV 98.8 fL (80.0-100.0); Platelet Count 164 k/uL (150-450); RBC 4.22 m/uL (4.30-5.90); RDW 13.6 % (11.5-15.5); WBC 4.4 k/uL (3.8-10.6)
[2021-12-26] MEDS ORDERED: ALBUTEROL NEBULIZED 2.5 MG/3 ML INHALATION SCH (08:00)
[2021-12-26 08:19] LABS: Eosinophils # (M) 0.13 k/uL (0-0.7); Lymphocytes # (M) 0.92 k/uL (1.0-4.8); Monocytes # (M) 0.57 k/uL (0-1.0); Neutrophils # (M) 2.77 k/uL (1.3-7.7); Neutrophils % (M) 63 %; Nucleated Red Blood Cells 0 /100 WBC (0-0); Total Cells Counted 100
[2021-12-26 08:32] LABS: RBC Morphology Normal
[2021-12-26] MEDS: SYMBICORT 160-4.5 MCG INHALER INHALATION SCH ×2 (08:32→19:34)
[2021-12-26] MEDS: IPRATROPIUM-ALBUTEROL 3 ML NEB INHALATION SCH ×4 (08:32→19:34)
--- NOTE | 2021-12-26 08:35 | P.HPIM ---
History of Present Illness H&P Date: 12/26/21 Chief Complaint: Right foot This is a history and physical on a 76-year-old white male with known history of chronic migraine headaches COPD who has had right foot erythema for the last several days. He saw me for follow-up and the wound was more erythematous with significant almost vasculitis appearing reaction. The patient has an underlying ALLERGY to sulfa. He's been placed on doxycycline IV. No fever or chills but he is overtly concerned about the health of his foot. He is admitted for appropriate cellulitis of the right lower extremity. 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 "Broken heart syndrome." Lower back stimulator. Last Myocardial Infarction Date:: 05/25/14 History of Any Multi-Drug Resistant Organisms: None Reported Past Surgical History: Adenoidectomy, Appendectomy, Back Surgery, Bowel Resection, Cholecystectomy, Heart Catheterization, Hernia Repair, Orthopedic Surgery, Tonsillectomy Additional Past Surgical History / Comment(s): EGD/colonoscopy, cardiac cathetrization X2, several back surgeries including laminectomy, spinous process removed T11 and T12/cage/arturo, bilateral arthroscopic knee surgeries, bilateral thumb surgeries with right titanium joint, left rotator cuff repair, several nasal polypectomies, pain procedures - RFA cervical/back, bilateral inguinal hernia repairs, right orchiectomy, diaphragmatic hernia repair, section of sigmoid colon removed, back stimulator put in left hip for back pain at [facility], right hand surgery. Past Anesthesia/Blood Transfusion Reactions: No Reported Reaction Past Psychological History: No Psychological Hx Reported Smoking Status: Former smoker Past Alcohol Use History: None Reported Past Drug Use History: None Reported - Past Family History Father Family Medical History: Cancer Additional Family Medical History / Comment(s): Father of stomach cancer at the age of 65 yrs. Mother Family Medical History: No Reported History Additional Family Medical History / Comment(s): Mother of "old age". She was 83 yrs old. Brother(s) Family Medical History: Cancer, Diabetes Mellitus Additional Family Medical History / Comment(s): Brain tumor. Sister(s) Family Medical History: Cancer, Diabetes Mellitus Additional Family Medical History / Comment(s): Sisters breast cancer. Medications and Allergies Home Medications Medication Instructions Recorded Confirmed Type RX: Albuterol Nebulized [Ventolin 2.5 mg INHALATION RT-BID 08/16/21 12/25/21 History Nebulized] RX: Nitroglycerin Sl Tabs 0.4 mg SL Q5M PRN 08/16/21 12/25/21 History [Nitrostat] RX: Fluticasone Propion/Salmeterol 1 puff INHALATION RT-BID 09/08/21 12/25/21 History [Advair 500-50 Diskus] RX: Omeprazole [PriLOSEC] 40 mg PO DAILY 09/08/21 12/25/21 History RX: Ipratropium-Albuterol Nebulize 3 ml INHALATION RT-BID 10/30/21 12/25/21 History [Duoneb 0.5 mg-3 mg/3 ml Soln] SUMAtriptan succinate [Imitrex] 100 mg PO BID PRN 12/25/21 12/25/21 History Allergies Allergy/AdvReac Type Severity Reaction Status Date / Time celecoxib [From Celebrex] Allergy Unknown Verified 12/25/21 21:55 Iodinated Contrast Media Allergy Anaphylaxis Verified 12/25/21 21:55 [Iodinated Contrast Media - IV Dye] iodine Allergy Anaphylaxis Verified 12/25/21 21:55 nystatin Allergy Rash/Hives Verified 12/25/21 21:55 Penicillins Allergy Anaphylaxis Verified 12/25/21 21:55 Sulfa (Sulfonamide Allergy Anaphylaxis Verified 12/25/21 21:55 Antibiotics) tramadol Allergy Swelling Verified 12/25/21 21:55 triamcinolone Allergy Rash/Hives Verified 12/25/21 21:55 fentanyl AdvReac Severe SEVERE Verified 12/25/21 21:55 MIGRAINES adhesive AdvReac tears skin Verified 12/25/21 21:55 chocolate flavor AdvReac TRIGGERS Verified 12/25/21 21:55 MIGRAINE duloxetine [From Cymbalta] AdvReac Headaches Verified 12/25/21 21:55 gabapentin AdvReac Confusion Verified 12/25/21 21:55 Opioids - Morphine Analogues AdvReac Migraine Verified 12/25/21 21:55 Opioids-Meperidine and AdvReac Migraine Verified 12/25/21 21:55 Related peanut AdvReac TRIGGERS Verified 12/25/21 21:55 MIGRAINES tree nut [Nut] AdvReac HEADACHE Verified 12/25/21 21:55 yellow dye AdvReac HEADACHE Verified 12/25/21 21:55 Physical Exam Vitals: Vital Signs Temp Pulse Resp BP Pulse Ox 12/26/21 06:16 97.7 F 87 16 152/78 92 L 12/26/21 03:49 75 16 152/87 92 L 12/25/21 22:53 97.8 F 78 18 159/93 94 L 12/25/21 14:50 97.9 F 71 20 149/82 99 - Constitutional General appearance: no acute distress - EENT Eyes: EOMI - Neck Neck: no lymphadenopathy - Respiratory Respiratory: bilateral: CTA - Cardiovascular Rhythm: regular Heart sounds: normal: S1, S2 Abnormal Heart Sounds: no S3 Gallop - Gastrointestinal General gastrointestinal: soft, no tenderness - Integumentary Right lower extremity 8 x 12 cm cellulitis patch Integumentary: cellulitis - Psychiatric Psychiatric: A&O x's 3 Results CBC & Chem 7: 12/26/21 05:43 12/26/21 05:43 Labs: Abnormal Lab Results - Last 24 Hours (Table) 12/25/21 12/26/21 12/26/21 Range/Units 20:56 05:43 05:43 RBC 4.22 L (4.30-5.90) m/uL Sodium 136 L (137-145) mmol/L Potassium 5.3 H (3.5-5.1) mmol/L Creatinine 0.64 L (0.66-1.25) mg/dL Glucose 138 H (74-99) mg/dL Calcium 8.2 L (8.4-10.2) mg/dL Microbiology - Last 24 Hours (Table) 12/25/21 20:56 Gram Stain - Preliminary Foot - Right Wound Culture - Preliminary 12/25/21 20:56 Anaerobic Culture - Preliminary Foot - Right Assessment and Plan (1) Cellulitis of right foot Current Visit: Yes Status: Acute Code(s): L03.115 - CELLULITIS OF RIGHT LOWER LIMB SNOMED Code(s): 687089453 (2) COPD (chronic obstructive pulmonary disease) Current Visit: No Status: Acute Code(s): J44.9 - CHRONIC OBSTRUCTIVE PULMONARY DISEASE, UNSPECIFIED SNOMED Code(s): 85567289 (3) Headache Current Visit: No Status: Acute Code(s): R51 - HEADACHE * DO NOT USE * SNOMED Code(s): 56643149 (4) High risk for readmission Current Visit: No Status: Acute Code(s): Z91.89 - OTH PERSONAL RISK FACTORS, NOT ELSEWHERE CLASSIFIED SNOMED Code(s): 362228038 (5) Hx of nicotine dependence Current Visit: No Status: Acute Code(s): Z87.891 - PERSONAL HISTORY OF NICOTINE DEPENDENCE SNOMED Code(s): 516437786 Plan: Continue current regimen of antibiotic treatment. The patient was apprised to stop using hydrogen peroxide at home for cleansing this. CBC is nominal. Appreciate infectious disease input
[2021-12-26] MEDS ORDERED: DOXYCYCLINE 100 MG in SODIUM CHLORIDE 0.9% 100 ML IVPB SCH (09:00)
[2021-12-26] MEDS: ACETAMINOPHEN TAB 325 MG TAB PO PRN ×2 (09:32→18:08)
[2021-12-26] MEDS: SODIUM CHLORIDE 0.9% 1,000 ML IV SCH (09:33)
[2021-12-26] MEDS ORDERED: IPRATROPIUM-ALBUTEROL 3 ML NEB INHALATION SCH (12:00)
[2021-12-26] MEDS: SUMAtriptan succinate 50 MG TAB PO PRN (13:00)
[2021-12-26 15:39] VITALS: RESP 16
[2021-12-26] MEDS: DOXYCYCLINE 100 MG CAP PO SCH (20:45)
[2021-12-26] MEDS: NYSTATIN 100,000UNIT/GM CREAM 30 GM TUBE TOPICAL SCH (20:46)
[2021-12-26] MEDS: TRIAMCINOLONE 0.1% CREAM 80 GM TUBE TOPICAL SCH (20:46)
[2021-12-27] MEDS: SODIUM CHLORIDE 0.9% 1,000 ML IV SCH (04:03)
[2021-12-27] MEDS: ACETAMINOPHEN TAB 325 MG TAB PO PRN (04:15)
[2021-12-27 05:01] VITALS: BP 163/70; PULSE 74; TEMP 98
[2021-12-27] MEDS: PANTOPRAZOLE 40 MG TABLET PO SCH (06:02)
--- NOTE | 2021-12-27 07:28 | P.CONS ---
History of Present Illness - Reason for Consult Consult date: 12/26/21 - History of Present Illness Patient is a 76-year-old male with a past medical history significant for COPD patient apparently has been dealing with the rash/irritation on the dorsal aspect of his right foot for the last few weeks, patient is not very sure how it started denies any history of any trauma or anything spilling on it patient has been evaluated by dermatology and is planning to physician has been treated with multiple local treatment without any improvement has the patient was sent to the ER for further management patient denies having high-grade fever rigors or chills and no fever has been recorded on admission to the hospital he did have a normal white count, patient has been complaining of mostly itching and irritation to the dorsal aspect right foot with some erythema and bleeding from scratching but no foul-smelling drainage patient did have blood cultures obtained as well as local culture he was started on IV doxycycline because of multiple allergies infectious disease was consulted for further management of antibiotic therapy Past Medical History Past Medical History: Cancer, Chest Pain / Angina, COPD, GERD/Reflux Additional Past Medical History / Comment(s): Hx bladder cancer 15 yrs ago, hx right testicular cancer - surgery & radiation 20+ yrs ago, occassional migraines, hx hiatal hernia, hx gastritis, 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 "Broken heart syndrome." Lower back stimulator. Last Myocardial Infarction Date:: 05/25/14 History of Any Multi-Drug Resistant Organisms: None Reported Past Surgical History: Adenoidectomy, Appendectomy, Back Surgery, Bowel Resection, Cholecystectomy, Heart Catheterization, Hernia Repair, Orthopedic Surgery, Tonsillectomy Additional Past Surgical History / Comment(s): EGD/colonoscopy, cardiac cathetrization X2, several back surgeries including laminectomy, spinous process removed T11 and T12/cage/arturo, bilateral arthroscopic knee surgeries, bilateral thumb surgeries with right titanium joint, left rotator cuff repair, several nasal polypectomies, pain procedures - RFA cervical/back, bilateral inguinal hernia repairs, right orchiectomy, diaphragmatic hernia repair, section of sigmoid colon removed, back stimulator put in left hip for back pain at [facility], right hand surgery. Past Anesthesia/Blood Transfusion Reactions: No Reported Reaction Past Psychological History: No Psychological Hx Reported Smoking Status: Former smoker Past Alcohol Use History: None Reported Past Drug Use History: None Reported - Past Family History Father Family Medical History: Cancer Additional Family Medical History / Comment(s): Father of stomach cancer at the age of 65 yrs. Mother Family Medical History: No Reported History Additional Family Medical History / Comment(s): Mother of "old age". She was 83 yrs old. Brother(s) Family Medical History: Cancer, Diabetes Mellitus Additional Family Medical History / Comment(s): Brain tumor. Sister(s) Family Medical History: Cancer, Diabetes Mellitus Additional Family Medical History / Comment(s): Sisters breast cancer. Medications and Allergies Home Medications Medication Instructions Recorded Confirmed Type Albuterol Nebulized [Ventolin 2.5 mg INHALATION RT-BID 08/16/21 12/25/21 History Nebulized] Nitroglycerin Sl Tabs [Nitrostat] 0.4 mg SL Q5M PRN 08/16/21 12/25/21 History Fluticasone Propion/Salmeterol 1 puff INHALATION RT-BID 09/08/21 12/25/21 History [Advair 500-50 Diskus] Omeprazole [PriLOSEC] 40 mg PO DAILY 09/08/21 12/25/21 History Ipratropium-Albuterol Nebulize 3 ml INHALATION RT-BID 10/30/21 12/25/21 History [Duoneb 0.5 mg-3 mg/3 ml Soln] SUMAtriptan succinate [Imitrex] 100 mg PO BID PRN 12/25/21 12/25/21 History Allergies Allergy/AdvReac Type Severity Reaction Status Date / Time celecoxib [From Celebrex] Allergy Unknown Verified 12/25/21 21:55 Iodinated Contrast Media Allergy Anaphylaxis Verified 12/25/21 21:55 [Iodinated Contrast Media - IV Dye] iodine Allergy Anaphylaxis Verified 12/25/21 21:55 nystatin Allergy Rash/Hives Verified 12/25/21 21:55 Penicillins Allergy Anaphylaxis Verified 12/25/21 21:55 Sulfa (Sulfonamide Allergy Anaphylaxis Verified 12/25/21 21:55 Antibiotics) tramadol Allergy Swelling Verified 12/25/21 21:55 triamcinolone Allergy Rash/Hives Verified 12/25/21 21:55 fentanyl AdvReac Severe SEVERE Verified 12/25/21 21:55 MIGRAINES adhesive AdvReac tears skin Verified 12/25/21 21:55 chocolate flavor AdvReac TRIGGERS Verified 12/25/21 21:55 MIGRAINE duloxetine [From Cymbalta] AdvReac Headaches Verified 12/25/21 21:55 gabapentin AdvReac Confusion Verified 12/25/21 21:55 Opioids - Morphine Analogues AdvReac Migraine Verified 12/25/21 21:55 Opioids-Meperidine and AdvReac Migraine Verified 12/25/21 21:55 Related peanut AdvReac TRIGGERS Verified 12/25/21 21:55 MIGRAINES tree nut [Nut] AdvReac HEADACHE Verified 12/25/21 21:55 yellow dye AdvReac HEADACHE Verified 12/25/21 21:55 Physical Exam Vitals: Vital Signs Temp Pulse Pulse Resp BP BP Pulse Ox 12/26/21 13:00 97.6 F 73 18 149/77 94 L 12/26/21 10:00 97.4 F L 72 18 138/71 93 L 12/26/21 08:40 82 12/26/21 08:36 90 L 12/26/21 08:32 79 12/26/21 06:16 97.7 F 87 16 152/78 92 L 12/26/21 03:49 75 16 152/87 92 L 12/25/21 22:53 97.8 F 78 18 159/93 94 L Intake and Output 12/26/21 12/26/21 12/26/21 06:59 14:59 22:59 Intake Total 240 Balance 240 Intake: Oral 240 Other: Voiding Method Toilet Weight 66.224 kg Results CBC & Chem 7: 12/26/21 05:43 12/26/21 05:43 Labs: Abnormal Lab Results - Last 24 Hours (Table) 12/25/21 12/26/21 12/26/21 Range/Units 20:56 05:43 05:43 RBC 4.22 L (4.30-5.90) m/uL Lymphocytes # (Manual) 0.92 L (1.0-4.8) k/uL Sodium 136 L (137-145) mmol/L Potassium 5.3 H (3.5-5.1) mmol/L Creatinine 0.64 L (0.66-1.25) mg/dL Glucose 138 H (74-99) mg/dL Calcium 8.2 L (8.4-10.2) mg/dL Microbiology - Last 24 Hours (Table) 12/25/21 20:56 Gram Stain - Preliminary Foot - Right Wound Culture - Preliminary 12/25/21 20:56 Anaerobic Culture - Preliminary Foot - Right Assessment and Plan Plan: 1patient to the hospital with irritation on the dorsal aspect of the right foot failing outpatient oral therapy as well as local treatment it has features mostly of a fungal dermatitis not behaving as a bacterial in this patient with no fever or elevated white count did not have significant open wound or any foul-smelling drainage. 2patient with multiple antibiotic allergies that would limit the number of antibiotics safe to use. 3we will apply Mycolog cream on the rash twice a day. 4switch doxycycline to p.o. 100 mg twice a day. We will follow on clinical condition and cultures to further adjust medication if needed Thank you for this consultation will follow this patient along with you Time with Patient: Greater than 30
[2021-12-27] MEDS: SYMBICORT 160-4.5 MCG INHALER INHALATION SCH (07:52)
[2021-12-27] MEDS: IPRATROPIUM-ALBUTEROL 3 ML NEB INHALATION SCH (07:53)
[2021-12-27] MEDS: SUMAtriptan succinate 50 MG TAB PO PRN (08:25)
[2021-12-27] MEDS: HEPARIN SODIUM,PORCINE/PF 5,000 UNIT/0.5 ML SYRINGE SQ SCH (08:52)
[2021-12-27] MEDS: DOXYCYCLINE 100 MG CAP PO SCH (08:52)
[2021-12-27] MEDS: TRIAMCINOLONE 0.1% CREAM 80 GM TUBE TOPICAL SCH (08:52)
[2021-12-27] MEDS: NYSTATIN 100,000UNIT/GM CREAM 30 GM TUBE TOPICAL SCH (08:52)
== END 2021-12-27 11:12 | disposition home or self-care (01) ==
LOC: EC 14:15 → 6NMEDSUR 21:57 → 5NMEDONC 12-26 04:18
PROVIDERS: ADMIT Family Medicine; ATTEND Family Medicine
DX: L03.115 Cellulitis of right lower limb (principal); J44.9 Chronic obstructive pulmonary disease, unspecified; K21.9 Gastro-esophageal reflux disease without esophagitis; I25.2 Old myocardial infarction; Z88.8 Allergy status to other drugs, medicaments and biological substances; Z88.2 Allergy status to sulfonamides; Z88.1 Allergy status to other antibiotic agents; Z85.51 Personal history of malignant neoplasm of bladder; Z85.47 Personal history of malignant neoplasm of testis; Z92.3 Personal history of irradiation; Z90.49 Acquired absence of other specified parts of digestive tract; Z80.0 Family history of malignant neoplasm of digestive organs; Z83.3 Family history of diabetes mellitus; Z80.3 Family history of malignant neoplasm of breast; Z88.0 Allergy status to penicillin; Z88.5 Allergy status to narcotic agent; Z87.891 Personal history of nicotine dependence
CPT/HCPCS: 96376 ×2; 96361 ×2; 96366 ×2; 96372 ×2; 96365; 96375; 99284; 36415; 94640; 94760; 80053; 80048; 85652; 83605; 85025 ×2; 86140; 87040; 87070; 87205; 87075; 73630; G0378 ×4; J2270 ×2; J2405 ×2; J1885; J1644 ×2

== ENCOUNTER → 2022-03-19 | Outpatient (CLI) | payer MEDICARE, OTHER ==
--- NOTE | 2022-03-19 12:01 | FL ---
Modified barium swallow. Consistencies administered: Thin, pudding, and cracker consistencies. No tracheal aspiration. Minimal residual vallecular retention with thin consistency that subsequently clears after swallow. Fluoro time: 1 minute 3 seconds No images were sent to PACS. Please see speech pathology report.
== END | disposition home or self-care (01) ==
LOC: RADFLMAIN 10:37
PROVIDERS: ATTEND Internal Medicine Critical Care Medicine
DX: R13.10 Dysphagia, unspecified (principal)
CPT/HCPCS: 74230

== ENCOUNTER 2022-06-27 08:45 | Day surgery (SDC) | payer MEDICARE ==
[2022-06-22 16:09] VITALS: BMI 20.3
[2022-06-27 09:19] VITALS: TEMP 97.2
[2022-06-27] MEDS ORDERED: LIDOCAINE 2% INJ 20 MG/ML (2 ML VIAL) ONE (09:41)
[2022-06-27] MEDS ORDERED: PROPOFOL 10 MG/ML 20 ML VIAL IV ONE (09:41)
--- NOTE | 2022-06-27 09:55 | P.GSHP ---
History of Present Illness H&P Date: 06/27/22 CHIEF COMPLAINT: GERD HISTORY OF PRESENT ILLNESS: The patient is a 77-year-old male who presents reports gastroesophageal reflux disease. Upper endoscopy was offered for further evaluation and management. PAST MEDICAL HISTORY: Please see list. PAST SURGICAL HISTORY: Please see list. MEDICATIONS: Please see list. ALLERGIES: Please see list. SOCIAL HISTORY: No illicit drug use FAMILY HISTORY: No reports of Crohn disease or ulcerative colitis. REVIEW OF ORGAN SYSTEMS: CONSTITUTIONAL: No reports of fevers or chills. GI: Denies any blood in stools or constipation. PHYSICAL EXAM: VITAL SIGNS: Stable GENERAL: Well-developed and pleasant in no acute distress. HEENT: No scleral icterus. Extraocular movements grossly intact. Moist buccal mucosa. NECK: Supple without lymphadenopathy. CHEST: Unlabored respirations. Equal bilateral excursions. CARDIOVASCULAR: Regular rate and rhythm. Distal 2+ pulses. ABDOMEN: Soft, nondistended. MUSCULOSKELETAL: No clubbing, cyanosis, or edema. ASSESSMENT: 1. Gastroesophageal reflux disease PLAN: 1. 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 "Broken heart syndrome." Lower back stimulator. Last Myocardial Infarction Date:: 05/25/14 History of Any Multi-Drug Resistant Organisms: None Reported Past Surgical History: Adenoidectomy, Appendectomy, Back Surgery, Bowel Resection, Cholecystectomy, Heart Catheterization, Hernia Repair, Orthopedic Surgery, Tonsillectomy Additional Past Surgical History / Comment(s): EGD/colonoscopy, cardiac cathetrization X2, several back surgeries including laminectomy, spinous process removed T11 and T12/cage/arturo, bilateral arthroscopic knee surgeries, bilateral thumb surgeries with right titanium joint, left rotator cuff repair, several nasal polypectomies, pain procedures - RFA cervical/back, bilateral inguinal hernia repairs, right orchiectomy, diaphragmatic hernia repair, section of sigmoid colon removed, back stimulator put in left hip for back pain at [facility], right hand surgery. Past Anesthesia/Blood Transfusion Reactions: No Reported Reaction Smoking Status: Former smoker - Past Family History Father Family Medical History: Cancer Additional Family Medical History / Comment(s): Father of stomach cancer at the age of 65 yrs. Mother Family Medical History: No Reported History Additional Family Medical History / Comment(s): Mother of "old age". She was 83 yrs old. Brother(s) Family Medical History: Cancer, Diabetes Mellitus Additional Family Medical History / Comment(s): Brain tumor. Sister(s) Family Medical History: Cancer, Diabetes Mellitus Additional Family Medical History / Comment(s): Sisters breast cancer. Medications and Allergies Home Medications Medication Instructions Recorded Confirmed Type Albuterol Nebulized [Ventolin 2.5 mg INHALATION RT-BID 08/16/21 06/27/22 History Nebulized] Nitroglycerin Sl Tabs [Nitrostat] 0.4 mg SL Q5M PRN 08/16/21 06/27/22 History Omeprazole [PriLOSEC] 40 mg PO DAILY 09/08/21 06/27/22 History SUMAtriptan succinate [Imitrex] 100 mg PO BID PRN 12/25/21 06/27/22 History Fluticasone/Umeclidin/Vilanter 1 puff INHALATION DAILY 03/20/22 06/27/22 History [Reed [place] 200-62.5-25] Allergies Allergy/AdvReac Type Severity Reaction Status Date / Time celecoxib [From Celebrex] Allergy Unknown Verified 06/27/22 09:10 Iodinated Contrast Media Allergy Anaphylaxis Verified 06/27/22 09:10 [Iodinated Contrast Media - IV Dye] iodine Allergy Anaphylaxis Verified 06/27/22 09:10 nystatin Allergy Rash/Hives Verified 06/27/22 09:10 Penicillins Allergy Anaphylaxis Verified 06/27/22 09:10 Sulfa (Sulfonamide Allergy Anaphylaxis Verified 06/27/22 09:10 Antibiotics) tramadol Allergy Swelling Verified 06/27/22 09:10 triamcinolone Allergy Rash/Hives Verified 06/27/22 09:10 fentanyl AdvReac Severe SEVERE Verified 06/27/22 09:10 MIGRAINES adhesive AdvReac tears skin Verified 06/27/22 09:10 chocolate flavor AdvReac TRIGGERS Verified 06/27/22 09:10 MIGRAINE duloxetine [From Cymbalta] AdvReac Headaches Verified 06/27/22 09:10 gabapentin AdvReac Confusion Verified 06/27/22 09:10 Opioids - Morphine Analogues AdvReac Migraine Verified 06/27/22 09:10 Opioids-Meperidine and AdvReac Migraine Verified 06/27/22 09:10 Related peanut AdvReac TRIGGERS Verified 06/27/22 09:10 MIGRAINES tree nut [Nut] AdvReac HEADACHE Verified 06/27/22 09:10 yellow dye AdvReac HEADACHE Verified 06/27/22 09:10 Surgical - Exam Vital Signs Temp Pulse Resp BP Pulse Ox 97.2 F L 68 16 154/84 93 L 06/27/22 09:17 06/27/22 09:17 06/27/22 09:17 06/27/22 09:17 06/27/22 09:17
[2022-06-27] MEDS ORDERED: LACTATED RINGERS 1,000 ML IV ONE (10:00)
[2022-06-27 10:27] VITALS: BP 167/84; PULSE 58; RESP 20
--- NOTE | 2022-06-27 11:22 | P.PCN ---
Date of Procedure: 06/27/22 Description of Procedure: PREOPERATIVE DIAGNOSIS: Dysphagia. Presbyesophagus Upper esophageal stenosis Gastroesophageal reflux disease POSTOPERATIVE DIAGNOSIS: Dysphagia. Presbyesophagus Upper esophageal stenosis Gastroesophageal reflux disease OPERATION: Esophagogastroduodenoscopy with rigid dilator over the guidewire 60 Fr. SURGEON: Bonnie Padilla MD ANESTHESIA: MAC. INDICATIONS: The patient is a 77-year-old male who presents with a history of dysphagia. Benefits and risks of the procedure were described. Informed consent was obtained. DESCRIPTION: The patient was brought into the endoscopy suite and laid in the left lateral decubitus position. After a timeout was confirmed, the procedure was initiated. An Olympus gastroscope was passed and the stomach was entered. Mild gastritis was identified. The scope was advanced to the duodenum which was unremarkable. Retroflexion the scope confirmed a Hill grade 2 lower esophageal valve. Next using an Indian rigid dilator, a guidewire was placed through the pediatric gastroscope. Next the scope was withdrawn. A 60-Spanish rigid Am erican dilator was passed carefully along the posterior oropharynx to 50 cm and left in place for 2-3 minutes stretch. The dilator was withdrawn including the guidewire. The scope was reentered along the posterior oropharynx with no findings of full-thickness tear of the upper esophageal sphincter. No full-thickness injury was encountered. The GI tract was desufflated. The patient tolerated the procedure well. FINDINGS: Squamocolumnar junction unremarkable at 38 cm. Presbyesophagus for esophageal dysmotility Indian rigid dilator 60-Spanish completed. Diaphragmatic hiatal hernia, 2 cm Hill grade 2 lower esophageal valve. LA grade A esophagitis. RECOMMENDATIONS: Upper endoscopy as needed Recommend repair of hiatal hernia due to symptomatic reflux Plan - Discharge Summary Discharge Rx Participant: No New Discharge Prescriptions: Continue Albuterol Nebulized [Ventolin Nebulized] 2.5 mg INHALATION RT-BID Nitroglycerin Sl Tabs [Nitrostat] 0.4 mg SL Q5M PRN PRN Reason: Chest Pain Omeprazole [PriLOSEC] 40 mg PO DAILY SUMAtriptan succinate [Imitrex] 100 mg PO BID PRN PRN Reason: Migraine Headache Fluticasone/Umeclidin/Vilanter [Trelegy Ellipta 200-62.5-25] 1 puff INHALATION DAILY Discharge Medication List Albuterol Nebulized [Ventolin Nebulized] 2.5 mg INHALATION RT-BID 08/16/21 [History] Nitroglycerin Sl Tabs [Nitrostat] 0.4 mg SL Q5M PRN 08/16/21 [History] Omeprazole [PriLOSEC] 40 mg PO DAILY 09/08/21 [History] SUMAtriptan succinate [Imitrex] 100 mg PO BID PRN 12/25/21 [History] Fluticasone/Umeclidin/Vilanter [Trelegy Ellipta 200-62.5-25] 1 puff INHALATION DAILY 03/20/22 [History] Follow up Appointment(s)/Referral(s): Bonnie Padilla MD [STAFF PHYSICIAN] - 08/21/22 Patient Instructions/Handouts: *Surgery [facility] - (Anesthesia) Discharge Instructions Outpatient Surgery Discharge Disposition: HOME SELF-CARE
== END 2022-06-27 10:50 | disposition home or self-care (01) ==
LOC: ORWHC2ENDO 08:45
PROVIDERS: ATTEND Surgery Plastic and Reconstructive Surgery
DX: K22.2 Esophageal obstruction (principal); K44.9 Diaphragmatic hernia without obstruction or gangrene; K21.00 Gastro-esophageal reflux disease with esophagitis, without bleeding; K29.70 Gastritis, unspecified, without bleeding; J44.9 Chronic obstructive pulmonary disease, unspecified; I25.2 Old myocardial infarction; Z90.49 Acquired absence of other specified parts of digestive tract; Z90.89 Acquired absence of other organs; Z95.5 Presence of coronary angioplasty implant and graft; Z90.79 Acquired absence of other genital organ(s); Z87.891 Personal history of nicotine dependence; Z83.3 Family history of diabetes mellitus; Z80.3 Family history of malignant neoplasm of breast; Z79.51 Long term (current) use of inhaled steroids; Z79.899 Other long term (current) drug therapy; Z88.6 Allergy status to analgesic agent; Z88.2 Allergy status to sulfonamides; Z88.1 Allergy status to other antibiotic agents; Z88.8 Allergy status to other drugs, medicaments and biological substances; Z88.5 Allergy status to narcotic agent
CPT/HCPCS: 43249; 43248; J2704; J2001

== ENCOUNTER 2022-07-12 10:24 | Observation (INO) | payer MEDICARE ==
--- NOTE | 2022-07-12 09:29 | P.GSHP ---
History of Present Illness H&P Date: 07/12/22 CHIEF COMPLAINT: Paraesophageal hiatal hernia with gastroesophageal reflux disease. HISTORY OF PRESENT ILLNESS: The patient is a 77-year-old male who presents with symptomatic paraesophageal hiatal hernia over 3 years with gastroesophageal reflux disease. He has esophageal dysmotility with recurrent dysphagia. He has completed upper endoscopy workup. Now he presents for surgical intervention. PAST MEDICAL HISTORY: Please see list. PAST SURGICAL HISTORY: Please see list. MEDICATIONS: Please see list. ALLERGIES: Please see list. SOCIAL HISTORY: No illicit drug use FAMILY HISTORY: No reports of Crohn disease or ulcerative colitis. REVIEW OF ORGAN SYSTEMS: CONSTITUTIONAL: No reports of fevers or chills. GI: Denies any blood in stools. Has chronic constipation RESP: Has chronic obstructive pulmonary disease PHYSICAL EXAM: VITAL SIGNS: Stable GENERAL: Well-developed pleasant and in no acute distress. HEENT: No scleral icterus. Extraocular movements grossly intact. Moist buccal mucosa. NECK: Supple without lymphadenopathy. CHEST: Unlabored respirations. Equal bilateral excursions. CARDIOVASCULAR: Regular rate and rhythm. Distal 2+ pulses. ABDOMEN: Soft, nondistended. No peritoneal signs. MUSCULOSKELETAL: No clubbing, cyanosis, or edema. SKIN: Well-perfused. Good skin turgor. REPORTS: Upper endoscopy demonstrates paraesophageal hiatal hernia BARIUM SWALLOW: Images reviewed demonstrating paraesophageal hiatal hernia. This is my independent interpretation. REPORTS: Cardiology risk assessment obtained in the past 2 months. ASSESSMENT: 1. Diaphragmatic paraesophageal hiatal hernia with severe gastroesophageal reflux disease. PLAN: 1. Recommend proceeding with a robotic paraesophageal hiatal hernia with possible mesh. 2. Benefits and risks of surgical intervention was discussed including possibility of open technique. 3. Inpatient hospitalization recommended of 2 nights 4. DVT prophylaxis. 5. Antibiotic prophylaxis. 6. He has also completed a very low caloric high-protein diet to address underlying hepatomegaly. 7. Non narcotic pain management including abdominal wall block described 8. Blood sugar glucose described. 9. Weight loss management described. 10. 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 "Broken heart syndrome. after having covid was on meds for 6 mos and had cardiac cath per and no issues since" Lower back stimulator. Last Myocardial Infarction Date:: 05/25/14 History of Any Multi-Drug Resistant Organisms: None Reported Past Surgical History: Adenoidectomy, Appendectomy, Back Surgery, Bowel Resection, Cholecystectomy, Heart Catheterization, Hernia Repair, Orthopedic Surgery, Tonsillectomy Additional Past Surgical History / Comment(s): EGD/colonoscopy, cardiac cathetrization X2, several back surgeries including laminectomy, spinous process removed T11 and T12/cage/arturo, bilateral arthroscopic knee surgeries, bilateral thumb surgeries with right titanium joint, left rotator cuff repair, several nasal polypectomies, pain procedures - RFA cervical/back, bilateral inguinal hernia repairs, right orchiectomy, diaphragmatic hernia repair, section of sigmoid colon removed, back stimulator put in left hip for back pain at [facility], right hand surgery. Past Anesthesia/Blood Transfusion Reactions: No Reported Reaction Smoking Status: Former smoker - Past Family History Father Family Medical History: Cancer Additional Family Medical History / Comment(s): Father of stomach cancer at the age of 65 yrs. Mother Family Medical History: No Reported History Additional Family Medical History / Comment(s): Mother of "old age". She was 83 yrs old. Brother(s) Family Medical History: Cancer, Diabetes Mellitus Additional Family Medical History / Comment(s): Brain tumor. Sister(s) Family Medical History: Cancer, Diabetes Mellitus Additional Family Medical History / Comment(s): Sisters breast cancer. Medications and Allergies Home Medications Medication Instructions Recorded Confirmed Type Albuterol Nebulized [Ventolin 2.5 mg INHALATION RT-BID PRN 08/16/21 07/03/22 History Nebulized] Nitroglycerin Sl Tabs [Nitrostat] 0.4 mg SL Q5M PRN 08/16/21 07/03/22 History Omeprazole [PriLOSEC] 40 mg PO QAM 09/08/21 07/11/22 History SUMAtriptan succinate [Imitrex] 100 mg PO BID PRN 12/25/21 07/03/22 History Fluticasone/Umeclidin/Vilanter 1 puff INHALATION QAM 03/20/22 07/11/22 History [[place] Ellipta 200-62.5-25] Allergies Allergy/AdvReac Type Severity Reaction Status Date / Time celecoxib [From Celebrex] Allergy Rash/Hives Verified 07/11/22 08:45 Iodinated Contrast Media Allergy Anaphylaxis Verified 07/11/22 08:45 [Iodinated Contrast Media - IV Dye] iodine Allergy Anaphylaxis Verified 07/11/22 08:45 nystatin Allergy Rash/Hives Verified 07/11/22 08:45 Penicillins Allergy Anaphylaxis Verified 07/11/22 08:45 Sulfa (Sulfonamide Allergy Anaphylaxis Verified 07/11/22 08:45 Antibiotics) tramadol Allergy Swelling Verified 07/11/22 08:45 triamcinolone Allergy Rash/Hives Verified 07/11/22 08:45 fentanyl AdvReac Severe SEVERE Verified 07/11/22 08:45 MIGRAINES adhesive AdvReac tears skin Verified 07/11/22 08:45 chocolate flavor AdvReac TRIGGERS Verified 07/11/22 08:45 MIGRAINE duloxetine [From Cymbalta] AdvReac Headaches Verified 07/11/22 08:45 gabapentin AdvReac Confusion Verified 07/11/22 08:45 Opioids - Morphine Analogues AdvReac Migraine Verified 07/11/22 08:45 Opioids-Meperidine and AdvReac Migraine Verified 07/11/22 08:45 Related peanut AdvReac TRIGGERS Verified 07/11/22 08:45 MIGRAINES tree nut [Nut] AdvReac HEADACHE Verified 07/11/22 08:45 yellow dye AdvReac HEADACHE Verified 07/11/22 08:45
[~2022-07-12 10:24] MED LIST changes: +ACETAMINOPHEN TAB 500 MG TAB PO PRN; +CHLORHEXIDINE GLUCONATE 15 ML CUP MUCOUS MEM PRN; +HEPARIN SODIUM,PORCINE/PF 5,000 UNIT/0.5 ML SYRINGE SQ PRN; -LACTATED RINGERS 1,000 ML IV SCH; +ONDANSETRON 4 MG/2 ML VIAL IVP ONE; +PANTOPRAZOLE 40 MG/10 ML VIAL IVP PRN; +TAMSULOSIN 0.4 MG CAP.ER.24H PO STA
[2022-07-12] MEDS ORDERED: LIDOCAINE 1% (10MG/ML) FOR IV START SQ ONE (10:56)
[2022-07-12] MEDS ORDERED: LACTATED RINGERS 1,000 ML IV ONE ×3 (11:06→17:04)
[2022-07-12] MEDS ORDERED: DEXAMETHASONE SOD PHOSPHATE 4 MG/ML 1 ML VIAL IV ONE (11:14)
[2022-07-12 11:26] LABS: Basophils % (A) 1 %; Eosinophils # (A) 0.1 k/uL (0-0.7); Eosinophils % (A) 2 %; HCT 47.5 % (39.0-53.0); HGB 15.3 gm/dL (13.0-17.5); Lymphocytes # (A) 1.8 k/uL (1.0-4.8); Lymphocytes % (A) 24 %; MCH 31.2 pg (25.0-35.0); MCHC 32.2 g/dL (31.0-37.0); MCV 96.8 fL (80.0-100.0); Monocytes # (A) 0.5 k/uL (0-1.0); Monocytes % (A) 7 %; Neutrophils # (A) 4.7 k/uL (1.3-7.7); Neutrophils % (A) 63 %; Platelet Count 247 k/uL (150-450); RBC 4.91 m/uL (4.30-5.90); RDW 14.2 % (11.5-15.5); WBC 7.5 k/uL (3.8-10.6)
[2022-07-12 12:23] LABS: ALT 21 U/L (4-49); AST 29 U/L (17-59); African American GFR (CKD) >90 (>60 ml/min/1.73 sqM); Albumin 4.2 g/dL (3.5-5.0); Alkaline Phosphatase 71 U/L (38-126); Anion Gap 9 mmol/L; Blood Urea Nitrogen 30 mg/dL (9-20); Calcium 9.3 mg/dL (8.4-10.2); Carbon Dioxide 31 mmol/L (22-30); Chloride 100 mmol/L (98-107); Glucose 82 mg/dL (74-99); Non-African American GFR(CKD) >90 (>60 ml/min/1.73 sqM); Potassium 4.2 mmol/L (3.5-5.1); Sodium 140 mmol/L (137-145); Total Bilirubin 0.8 mg/dL (0.2-1.3); Total Protein 6.8 g/dL (6.3-8.2)
[2022-07-12] MEDS ORDERED: GLYCOPYRROLATE 0.2 MG/ML 2 ML VIAL ONE (12:35)
[2022-07-12] MEDS ORDERED: LIDOCAINE 2% INJ 20 MG/ML (2 ML VIAL) ONE (12:35)
[2022-07-12] MEDS ORDERED: SUCCINYLCHOLINE CHLORIDE 200 MG/10 ML VIAL IV ONE (12:35)
[2022-07-12] MEDS ORDERED: ePHEDrine 50 MG/ML 1 ML VIAL ONE (12:35)
[2022-07-12] MEDS ORDERED: PHENYLEPHRINE-0.9% NACL SYG 1,000 MCG/10 ML SYRINGE ONE (12:35)
[2022-07-12] MEDS ORDERED: NEOSTIGMINE 1 MG/ML 10 ML VIAL ONE (12:35)
[2022-07-12] MEDS ORDERED: ROCURONIUM 10 MG/ML (5 ML VIAL) IV ONE (12:35)
[2022-07-12] MEDS ORDERED: HYDROmorphone (PF) 1 MG/ML ONE (12:35)
[2022-07-12] MEDS ORDERED: PROPOFOL 10 MG/ML 20 ML VIAL IV ONE (12:35)
[2022-07-12] MEDS ORDERED: KETAMINE 10 MG/ML 20 ML VIAL ONE (12:35)
[2022-07-12] MEDS ORDERED: LIDOCAINE 2%-EPI 1:100,000 20 ML VIAL SQ ONE ×2 (12:40→13:13)
[2022-07-12] MEDS ORDERED: HYDROmorphone 0.5 MG/0.5 ML SYRINGE IVP ONE ×3 (15:04→15:54)
[2022-07-12] MEDS ORDERED: ALBUTEROL NEBULIZED 2.5 MG/3 ML INHALATION PRN (16:49)
[2022-07-12] MEDS ORDERED: NITROGLYCERIN SL TABS 0.4 MG TAB SUBLINGUAL PRN (16:49)
[2022-07-12] MEDS ORDERED: NALOXONE 0.4 MG/ML 10 ML VIAL IVP ONE (16:50)
--- NOTE | 2022-07-12 16:52 | P.OP ---
Date of Procedure: 07/12/22 Description of Procedure: SURGEON: MILANA FAM MD PREOPERATIVE DIAGNOSES: 1. Paraesophageal hiatal hernia, midline 2. Gastroesophageal reflux disease. POSTOPERATIVE DIAGNOSES: 1. Paraesophageal hiatal hernia, midline 2. Gastroesophageal reflux disease. OPERATION: 1. Robotic-assisted da Emily Xi laparoscopic reduction and repair of incarcerated paraesophageal hiatal hernia, 4 x 4 cm, with Ponce Biopatch A 8 x 8 cm. 2. Intraoperative esophagogastroduodenoscopy 3. Placement of 56-German bougie for pre-existing esophageal dysmotility Implants: Ponce Biopatch A 8 x 8 cm Anesthesia: GETA, local Estimated Blood Loss (ml): 5 Pathology: none sent Condition: stable Disposition: floor Operative Findings: 1. Incarcerated paraesophageal hiatal hernia, 4 x 4 cm 2. Hill grade 1 lower esophageal sphincter confirmed upon upper endoscopy 3. Poorly insufflating stomach 4. Pylori sphincter widely patent INDICATIONS: The patient is a 77-year-old male who presents with gastroesophageal reflux and a symptomatic diaphragmatic hiatal hernia. Preoperative workup including upper endoscopy demonstrated hiatal hernia. Given the severity of symptoms, surgical intervention was offered. Benefits and risks including bleeding, infection, recurrence, dysphagia, injury to the esophagus, and stomach injury to the lung, need for further surgery was described at length. Informed consent was obtained. DESCRIPTION: The patient was brought into the operating room and placed in supine position. Preoperatively she had received heparin subcutaneously for DVT prophylaxis. After general induction, the abdomen was prepped and draped in standard sterile fashion. Ioban draping was placed along the abdomen. A timeout protocol was confirmed with the surgical team, for which the patient's name, procedure to be performed including DVT prophylaxis with bilateral SCDs, and preoperative antibiotics were also confirmed. Robotic da Emily Xi system was prepped and primed. At 13 cm from the xiphoid to just below the umbilicus, proposed port sites were marked with indelible marker along the left axillary line, left mid-clavicular line with each ports were marked 10 cm from each other. A 5 mm 0 degrees laparoscopic trocar entry was performed along the left upper quadrant. The abdomen was insufflated to 15 mmHg pressure she tolerated well. Diagnostic laparoscopy demonstrated no injury to bowel, viscera, or mesentery. No injury had occurred to the small bowel or viscera. Along the hiatus, moderate perigastric adhesions were found from the previous fundoplasty. Next, one 8 mm robotic port was placed along the right upper abdomen. An 8-mm port was were placed along the left lateral abdominal wall. The camera 8-mm port was maintained along the epigastrium. A 12 mm port was placed along the left upper abdominal wall after exchanging the 5 mm port. Please note that the ports were placed at least 20 cm away from the target anatomy. Care was taken to check that each robotic arm were safely away from collision with the bed or the patient. At the epigastrium, a medium sized Memo liver retractor was placed under direct visualization with the Iron Corn Husk Baler placed under the right shoulder of the patient. The additional third robotic arm was used. The patient was repositioned in reverse Trendelenburg position at 20-degrees after lowering the bed. The robot was docked above the left side of the patient. Using a grasper for arm 3, a grasper for arm 1, including vessel sealer for arm 4, the robotic system was docked and primed as described. Instruments were interchanged by the diploma medical assistant. I had sat at the console. The phrenoesophageal ligament had moderate scarring where the distal esophagus was mobilized circumferentially. Care was taken to avoid any injury to the stomach and esophagus. The hiatal hernia sac was incarcerated into the medi astinum and divided to allow complete mobilization and freeing of the distal esophagus into the abdominal cavity. Care was taken to avoid any gastrotomy to the incarcerated upper pole of the stomach including takedown of the Radha fundoplasty. Extensive lysis of adhesions went more than 1hour was used for extended dissection of the adherent stomach high into the mediastinum. The hernia sac was divided to release mobility of the esophagus. Dissection went to the mid esophagus. The measured defect was consistent with 5 cm axial length and 3 cm in width. Intra-abdominal length of over 4 cm was obtained. Once the hiatus and crura was dissected, nonabsorbable 2-0 VLOC suture was placed as a running suture to re-approximate the diaphragmatic hiatus posteriorly. To buttress the repair, a Ponce Biopatch A was prepared along the back table and cut to reinforce the repair as an underlay. The mesh was placed along the crural repair posteriorly then cut in half and tagged using horizontal mattress sutures using 2-0 VLOC. I went to the head of the bed to perform intraoperative esophagogastroduodenoscopy. An Olympus gastroscope was passed through posterior oropharynx, where the GE brenda ction was found distal to the diaphragmatic hiatus. The stomach was entered. Chronic gastritis was found with mild duodenitis. Retroflexion of the scope confirmed Hill grade 1 lower esophageal sphincter. A 56-German bougie was placed to confirming minimal resistance. The stomach had been desufflated. This concluded the endoscopic portion of the case. The robot was undocked from the patient. I re-scrubbed into the case. All instruments and pneumoperitoneum were evacuated from the abdominal cavity. Incisions were reapproximated using 4-0 Monocryl in an interrupted subcuticular fashion. All incisions were cleaned using dilute hydrogen peroxide. At the 12 mm trocar site, fascial defect was oversewn using 0 Vicryl John Randle. Liquid glue was applied to the skin. Local anesthetic was infiltrated in all wounds for postop analgesia. Multiple intra-abdominal films were obtained. At the end of the procedure, needle, sponge, and instrument count was verified correct by the noc technician. The patient had tolerated the procedure well and was taken to the postanesthesia unit in stable condition. Intraoperative films were reviewed with the patient's family who were pleased with the level of care. Console time 79 minutes
[2022-07-12] MEDS ORDERED: HYDROmorphone 1 MG/ML 1 ML SYRINGE IVP PRN (16:57)
[2022-07-12] MEDS: DEXAMETHASONE SOD PHOSPHATE 4 MG/ML 1 ML VIAL IVP SCH ×2 (18:14→23:01)
[2022-07-12] MEDS: ONDANSETRON 4 MG/2 ML VIAL IVP SCH ×2 (18:14→23:01)
[2022-07-12] MEDS: METOCLOPRAMIDE 5 MG/ML 2 ML VIAL IVP SCH ×2 (18:14→23:01)
--- NOTE | 2022-07-12 18:21 | P.PN ---
Progress Note - Text Progress Note Date: 07/12/22 Patient had event of sluggish to response with narcotics. Narcan given. Observation advised in stepdown unit. Upper GI to evaluate for dysphagia and obstruction. Recommend admission due to multiple comorbidities and prolonged sedation.
[2022-07-12] MEDS: FAMOTIDINE 20 MG/2 ML VIAL IV SCH (20:05)
[2022-07-12] MEDS: HEPARIN SODIUM,PORCINE/PF 5,000 UNIT/0.5 ML SYRINGE SQ SCH (20:05)
[2022-07-12] MEDS: HYDROcodone/APAP 5-325MG 1 EACH TAB PO PRN (23:00)
[2022-07-13] MEDS: HYDROcodone/APAP 5-325MG 1 EACH TAB PO PRN ×3 (02:08→09:43)
[2022-07-13 03:39] VITALS: RESP 18; TEMP 97.4
[2022-07-13] MEDS: DEXAMETHASONE SOD PHOSPHATE 4 MG/ML 1 ML VIAL IVP SCH ×2 (05:35→14:27)
[2022-07-13] MEDS: ONDANSETRON 4 MG/2 ML VIAL IVP SCH ×2 (05:35→14:26)
[2022-07-13] MEDS: METOCLOPRAMIDE 5 MG/ML 2 ML VIAL IVP SCH ×2 (05:36→14:27)
[2022-07-13] MEDS ORDERED: SYMBICORT 80-4.5 MCG INHALER INHALATION SCH (08:00)
[2022-07-13] MEDS: IPRATROPIUM 0.5 MG/2.5 ML NEBU INHALATION SCH ×3 (08:44→15:57)
[2022-07-13] MEDS: HEPARIN SODIUM,PORCINE/PF 5,000 UNIT/0.5 ML SYRINGE SQ SCH (09:11)
[2022-07-13] MEDS: FAMOTIDINE 20 MG/2 ML VIAL IV SCH (09:11)
--- NOTE | 2022-07-13 11:55 | FL ---
EXAMINATION TYPE: FL UGI DATE OF EXAM: 07/13/2022 LIMITED UGI-ESOPHAGRAM: CLINICAL HISTORY: Hiatal hernia and dysphasia, Radha fundoplication surgery yesterday. Comparison: CT abdomen study June 15, 2021 TECHNIQUE: Limited esophagram is performed utilizing 20 oz of barium. A total of 12 seconds of fluor oscopic time was utilized during procedure. 25 spot images are saved. 559.59 total DAP. FINDINGS: The patient swallowed contrast without difficulty or delay. There is corkscrew appearance to the esophagus suggesting underlying achalasia. There is mild delay in motility along course of the esophagus with patient in standing upright There is good flow of contrast along the diaphragmatic hi atus into the stomach, there is no evidence of contrast extravasation to suggest leak. No persistent hiatal hernia is seen. Patient remains asymptomatic. A lower thoracic spinal stimulator device is red emonstrated. IMPRESSION: No evidence of leak or significant obstruction status post Harman fundoplication surgery yesterday.
[2022-07-13 12:58] VITALS: BP 132/71
--- NOTE | 2022-07-13 15:53 | P.DS ---
Providers Date of admission: 07/12/22 16:47 Expected date of discharge: 07/13/22 Attending physician: Bonnie Padilla Primary care physician: Lul Garcia Hospital Course: Discharge diagnosis 1. Paraesophageal hiatal hernia, midline 2. Gastroesophageal reflux disease. Hospital course The patient is a 77-year-old male who presents with gastroesophageal reflux and a symptomatic diaphragmatic hiatal hernia. She is status post Robotic-assisted da Emily Xi laparoscopic reduction and repair of incarcerated paraesophageal hiatal hernia, 4 x 4 cm, with [place] [employer]. He tolerated surgery well. His pain is controlled. He is tolerating diet. He is afebrile. Upper GI shows no evidence of leak or obstruction. He has been up and ambulating. He is having flatus. He is stable for discharge. Physician Shade Matcher note has been reviewed by physician. Signing provider agrees with the documented findings, assessment, and plan of care. Patient Condition at Discharge: Stable Plan - Discharge Summary Discharge Rx Participant: No New Discharge Prescriptions: New bisacodyL [Dulcolax] 5 mg PO DAILY PRN #10 tab PRN Reason: Constipation Simethicone 40 mg/0.6 ml Drops [Mylicon Drops] 40 mg PO PCHS PRN #30 ml PRN Reason: Gas Ondansetron Odt [Zofran Odt] 4 mg PO Q8HR PRN #9 tab PRN Reason: Nausea Omeprazole [PriLOSEC] 40 mg PO DAILY #30 cap Acetaminophen Tab [Tylenol] 1,000 mg PO Q6HR PRN #30 tablet PRN Reason: Pain Continue Albuterol Nebulized [Ventolin Nebulized] 2.5 mg INHALATION RT-BID PRN PRN Reason: sob Nitroglycerin Sl Tabs [Nitrostat] 0.4 mg SL Q5M PRN PRN Reason: Chest Pain SUMAtriptan succinate [Imitrex] 100 mg PO BID PRN PRN Reason: Migraine Headache Fluticasone/Umeclidin/Vilanter [Trelegy Ellipta 200-62.5-25] 1 puff INHALATION QAM Discontinued Omeprazole [PriLOSEC] 40 mg PO QAM Discharge Medication List Albuterol Nebulized [Ventolin Nebulized] 2.5 mg INHALATION RT-BID PRN 08/16/21 [History] Nitroglycerin Sl Tabs [Nitrostat] 0.4 mg SL Q5M PRN 08/16/21 [History] SUMAtriptan succinate [Imitrex] 100 mg PO BID PRN 12/25/21 [History] Fluticasone/Umeclidin/Vilanter [Trelegy Ellipta 200-62.5-25] 1 puff INHALATION QAM 03/20/22 [History] Acetaminophen Tab [Tylenol] 1,000 mg PO Q6HR PRN #30 tablet 07/13/22 [Rx] Omeprazole [PriLOSEC] 40 mg PO DAILY #30 cap 07/13/22 [Rx] Ondansetron Odt [Zofran Odt] 4 mg PO Q8HR PRN #9 tab 07/13/22 [Rx] Simethicone 40 mg/0.6 ml Drops [Mylicon Drops] 40 mg PO PCHS PRN #30 ml 07/13/22 [Rx] bisacodyL [Dulcolax] 5 mg PO DAILY PRN #10 tab 07/13/22 [Rx] Follow up Appointment(s)/Referral(s): Bonnie Padilla MD [STAFF PHYSICIAN] - 07/17/22 Activity/Diet/Wound Care/Special Instructions: Liquid diet only for 2 weeks No lifting over 4 pounds in 4 weeks May shower No soaking in bath tubs for 2 weeks Please notify your surgeon if you develop nausea and vomiting including new onset of abdominal pain. Please ambulate at all times. Use Simethicone, Gas-X, Tylenol scheduled for the next 24-48 hours for best pain relief. Use ice along incisions for the today to prevent swelling. Please open, cut, crush pills larger than the size of a tic tack No carbonated beverages. No straws. Do not remove scopolamine patch for 3 days, if present Avoiding Gas Avoid drinking through a straw. Do not chew gum or tobacco. These actions cause you to swallow air, which produces excess gas in your stomach. Chew with your mouth closed. Avoid any foods that cause stomach gas and distention. These foods include corn, dried beans, peas, lentils, onions, broccoli, cauliflower and any food from the cabbage family. Avoid carbonated drinks, alcohol, citrus and tomato products. Carbonated drinks (sodas) are not allowed for the first six to eight weeks after surgery. After this time you can try them again in small amounts Clear Liquid Diet The first diet after surgery is the clear liquid diet. It includes the following liquids: Apple juice Cranberry juice Grape juice Chicken broth Beef broth Flavored gelatin (Jell-O) Decaf tea and coffee Caffeinated beverages are permitted based on tolerance Popsicles Latvian ice Full Liquid Diet The full liquid diet contains anything on the clear liquid diet, plus: Milk, soy, rice and almond (no chocolate) Cream of wheat, cream of rice, grits Strained creamed soups (no tomato or broccoli) Vanilla and strawberry-flavored ice cream Sherbet Blended, custard styled or whipped yogurt (plain or vanilla only) Vanilla and butterscotch pudding (no chocolate or coconut) Nutritional drinks including Ensure, Boost, [place] Instant Breakfast (no chocolate-flavored) Note: Dairy products, such as milk, ice cream and pudding, may cause diarrhea in some people just after surgery. You may need to avoid milk products. If so, substitute them with lactose-free beverages, such as soy, rice, Lactaid or almond milks. Telehealth office visit with Dr. Padilla on 07/17/22 Discharge Disposition: HOME SELF-CARE
[2022-07-13 16:06] VITALS: PULSE 88
== END 2022-07-13 16:52 | disposition home or self-care (01) ==
LOC: OR 10:24 → 4SSUR 16:18 → 3SCARD 16:47 → OR 16:47 → 3SCARD 16:59
PROVIDERS: ADMIT Surgery Plastic and Reconstructive Surgery; ATTEND Surgery Plastic and Reconstructive Surgery
DX: K44.9 Diaphragmatic hernia without obstruction or gangrene (principal); K21.9 Gastro-esophageal reflux disease without esophagitis; K29.80 Duodenitis without bleeding; K29.50 Unspecified chronic gastritis without bleeding; K22.4 Dyskinesia of esophagus; J44.9 Chronic obstructive pulmonary disease, unspecified; I25.2 Old myocardial infarction; Z85.51 Personal history of malignant neoplasm of bladder; Z85.47 Personal history of malignant neoplasm of testis; Z87.891 Personal history of nicotine dependence; Z86.16 Personal history of COVID-19; Z92.3 Personal history of irradiation; Z90.49 Acquired absence of other specified parts of digestive tract; Z79.52 Long term (current) use of systemic steroids; Z80.0 Family history of malignant neoplasm of digestive organs; Z63.4 Disappearance and death of family member; Z83.3 Family history of diabetes mellitus; Z80.3 Family history of malignant neoplasm of breast; Z79.899 Other long term (current) drug therapy; Z88.8 Allergy status to other drugs, medicaments and biological substances; Z88.2 Allergy status to sulfonamides; Z88.0 Allergy status to penicillin; Z91.041 Radiographic dye allergy status
CPT/HCPCS: 43235; 43282; S2900; 74240; 80053; 85025; 94640; 94760; 96365; 96366; 96372; 96375; 96376

== ENCOUNTER 2022-08-18 09:49 | Emergency (ER) | payer MEDICARE ==
[2022-08-18] MEDS ORDERED: SODIUM CHLORIDE 0.9% 1,000 ML IV STA (10:28)
[2022-08-18] MEDS ORDERED: NITROGLYCERIN SL TABS 0.4 MG TAB SUBLINGUAL STA (10:28)
[2022-08-18] MEDS ORDERED: ASPIRIN 81 MG PO STA (10:28)
--- NOTE | 2022-08-18 10:50 | XR ---
EXAMINATION TYPE: XR chest 2V DATE OF EXAM: 08/18/2022 COMPARISON: 11/07/2021 HISTORY: Shortness of breath TECHNIQUE: Frontal and lateral views of the chest are obtained. FINDINGS: Scattered senescent parenchymal changes noted. Hyperinflation compatible with COPD. Chronic elevation right hemidiaphragm. No evidence for infiltrate. No evidence for atelectasis. Heart size is stable. Mediastinal structures are stable and grossly unremarkable. No evidence for hilar prominence. Degenerative changes dorsal spine. IMPRESSION: 1. No evidence for acute pulmonary disease.
--- NOTE | 2022-08-18 11:03 | ED ---
General Adult HPI - General Chief complaint: Chest Pain Stated complaint: Chest pain Time Seen by Provider: 08/18/22 10:05 Source: patient, family, RN notes reviewed, old records reviewed Mode of arrival: wheelchair Limitations: no limitations - History of Present Illness Initial comments: Patient is a 77-year-old male who presents emergency Department complaining of chest pain. States it is located on the left side. Attempt to do symmetrical sent him home with minimal improvement. 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 There is a history of angina per chart. Also history of COPD. Patient states that the pain started sometime early this morning around 8 AM. States that he took nystatin for possible [place]a mouth, as he does have a history of this but then forgot that he is ALLERGIC to it. He took it yesterday. Awoke this morning complaining of a scratchy throat, as well as itchiness over his left arm. This is in addition to the chest pain. Presents here for evaluation at this time. Positive history requiring multiple dilations of his esophagus to strictures. Does not endorse any difficulty breathing at this time. States chest pains approximately 5 out of 10. Due to the nitro at home with minimal improvement. Attempted AT home as well with no improvement. Presents for further evaluation at this time. Patient does have a history of cardiac cath in February 2021 which revealed minimal coronary artery disease. - Related Data Home Medications Medication Instructions Recorded Confirmed Albuterol Nebulized [Ventolin 2.5 mg INHALATION RT-QID PRN 08/16/21 08/18/22 Nebulized] Nitroglycerin Sl Tabs [Nitrostat] 0.4 mg SL Q5M PRN 08/16/21 08/18/22 SUMAtriptan succinate [Imitrex] 100 mg PO BID PRN 12/25/21 08/18/22 Fluticasone/Umeclidin/Vilanter 1 puff INHALATION RT-DAILY 03/20/22 08/18/22 [Trelegy Ellipta 200-62.5-25] hydrOXYzine HCL [Atarax] 10 mg PO HS PRN 08/18/22 08/18/22 Previous Rx's Medication Instructions Recorded Acetaminophen Tab [Tylenol] 1,000 mg PO Q6HR PRN #30 tablet 07/13/22 Omeprazole [PriLOSEC] 40 mg PO DAILY #30 cap 07/13/22 Ondansetron Odt [Zofran Odt] 4 mg PO Q8HR PRN #9 tab 07/13/22 Simethicone 40 mg/0.6 ml Drops 40 mg PO PCHS PRN #30 ml 07/13/22 [Mylicon Drops] bisacodyL [Dulcolax] 5 mg PO DAILY PRN #10 tab 07/13/22 Allergies Allergy/AdvReac Type Severity Reaction Status Date / Time celecoxib [From Celebrex] Allergy Rash/Hives Verified 08/18/22 12:28 Iodinated Contrast Media Allergy Anaphylaxis Verified 08/18/22 12:28 [Iodinated Contrast Media - IV Dye] iodine Allergy Anaphylaxis Verified 08/18/22 12:28 nystatin Allergy Rash/Hives, Verified 08/18/22 12:28 Swelling, Difficulty breathing Penicillins Allergy Anaphylaxis Verified 08/18/22 12:28 Sulfa (Sulfonamide Allergy Anaphylaxis Verified 08/18/22 12:28 Antibiotics) tramadol Allergy Swelling Verified 08/18/22 12:28 triamcinolone Allergy Rash/Hives Verified 08/18/22 12:28 fentanyl AdvReac Severe SEVERE Verified 08/18/22 12:28 MIGRAINES adhesive AdvReac tears skin Verified 08/18/22 12:28 chocolate flavor AdvReac TRIGGERS Verified 08/18/22 12:28 MIGRAINE duloxetine [From Cymbalta] AdvReac Headaches Verified 08/18/22 12:28 gabapentin AdvReac Confusion Verified 08/18/22 12:28 Opioids - Morphine Analogues AdvReac Migraine Verified 08/18/22 12:28 Opioids-Meperidine and AdvReac Migraine Verified 08/18/22 12:28 Related peanut AdvReac TRIGGERS Verified 08/18/22 12:28 MIGRAINES tree nut [Nut] AdvReac HEADACHE Verified 08/18/22 12:28 yellow dye AdvReac HEADACHE Verified 08/18/22 12:28 Review of Systems ROS Statement: Those systems with pertinent positive or pertinent negative responses have been documented in the HPI. Review of Systems: CONST: Denies fever EYES: Denies blurry vision ENT: Denies nasal congestion C/V: Endorses chest pain RESP: Denies shortness of breath GI: Denies abdominal pain : Denies dysuria SKIN: Denies rash. MSK: Denies joint pain. NEURO: Denies headache ROS Other: All systems not noted in ROS Statement are negative. 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 "Broken heart syndrome. after having covid was on meds for 6 mos and had cardiac cath per and no issues since" Lower back stimulator. Last Myocardial Infarction Date:: 05/25/14 History of Any Multi-Drug Resistant Organisms: None Reported Past Surgical History: Adenoidectomy, Appendectomy, Back Surgery, Bowel Resection, Cholecystectomy, Heart Catheterization, Hernia Repair, Orthopedic Surgery, Tonsillectomy Additional Past Surgical History / Comment(s): EGD/colonoscopy, cardiac cathetrization X2, several back surgeries including laminectomy, spinous process removed T11 and T12/cage/arturo, bilateral arthroscopic knee surgeries, bilateral thumb surgeries with right titanium joint, left rotator cuff repair, several nasal polypectomies, pain procedures - RFA cervical/back, bilateral inguinal hernia repairs, right orchiectomy, diaphragmatic hernia repair, section of sigmoid colon removed, back stimulator put in left hip for back pain at [facility], right hand surgery. Past Anesthesia/Blood Transfusion Reactions: No Reported Reaction Past Psychological History: No Psychological Hx Reported Smoking Status: Former smoker Past Alcohol Use History: None Reported Past Drug Use History: None Reported - Past Family History Father Family Medical History: Cancer Additional Family Medical History / Comment(s): Father of stomach cancer at the age of 65 yrs. Mother Family Medical History: No Reported History Additional Family Medical History / Comment(s): Mother of "old age". She was 83 yrs old. Brother(s) Family Medical History: Cancer, Diabetes Mellitus Additional Family Medical History / Comment(s): Brain tumor. Sister(s) Family Medical History: Cancer, Diabetes Mellitus Additional Family Medical History / Comment(s): Sisters breast cancer. General Exam - General Exam Comments Initial Comments: General: Appears in no acute distress. HEAD: Normal with no signs of head trauma. EYES: PERRLA, EOMI, conjunctiva normal, no discharge. ENT: Hearing grossly intact, normal oropharynx. No stridor auscultated. RESPIRATORY: Clear breath sounds bilaterally. No wheezes, rales, or rhonchi. C/V: Regular rate and rhythm. S1 and S2 auscultated, no edema, peripheral pulses 2+ and intact throughout, chest pain is nonreproducible on palpation. ABD: Abd is soft, nontender, nondistended EXT: Normal range of motion, no obvious deformity SKIN: No rashes or lesions observed on exposed skin. NEURO: Alert and oriented 4. Limitations: no limitations Course Vital Signs 08/18/22 09:51 Temperature 97.8 F Pulse Rate 80 Respiratory 18 Rate Blood Pressure 115/78 O2 Sat by Pulse 95 Oximetry Medical Decision Making - Medical Decision Making Was pt. sent in by a medical professional or institution (, PA, SETTLEMENT PROCESSOR, urgent care, hospital, or fpc...) When possible be specific @ -No Did you speak to anyone other than the patient for history (EMS, parent, family, police, friend...)? What history was obtained from this source @ -No Did you review nursing and triage notes (agree or disagree)? Why? @ -I reviewed and agree with nursing and triage notes Were old charts reviewed (outside hosp., previous admission, EMS record, old EKG, old radiological studies, urgent care reports/EKG's, fpc records)? Report findings @ -Old charts reviewed from July 2021 as well as cath report from February 2021. Differential Diagnosis (chest pain, altered mental status, abdominal pain women, abdominal pain men, vaginal bleeding, weakness, fever, dyspnea, syncope, headache, dizziness, GI bleed, back pain, seizure, CVA, palpatations, mental health, musculoskeletal)? @ -Differential Chest Pain: Stable Angina, Unstable Angina, STEMI, NSTEMI Aortic Dissection, Pneumothorax, Musculoskeletal, Esophageal Spasm GERD, Cholecystitis, Pancreatitis, Zoster, this is not meant to be an all-inclusive list. EKG interpreted by me (3pts min.). @ -As above X-rays interpreted by me (1pt min.). @ -Chest x-ray reveals no obvious acute cardio pulmonary process. CT interpreted by me (1pt min.). @ -None done U/S interpreted by me (1pt. min.). @ -None done What testing was considered but not performed or refused? (CT, X-rays, U/S, labs)? Why? @ -None What meds were considered but not given or refused? Why? @ -None Did you discuss the management of the patient with other professionals (professionals i.e. Dr., PA, SETTLEMENT PROCESSOR, lab, RT, psych nurse, sexual assault social worker, concrete worker, te acher, community liaison officer, pillowcase cutter)? Give summary @ -No Was smoking cessation discussed for >3mins.? @ -No Was critical care preformed (if so, how long)? @ -No Were there social determinants of health that impacted care today? How? (Homelessness, low income, unemployed, alcoholism, drug addiction, transportation, low edu. Level, literacy, decrease access to med. care, senior care, rehab)? @ -No Was there de-escalation of care discussed even if they declined (Discuss DNR or withdrawal of care, Hospice)? DNR status @ -No What co-morbidities impacted this encounter? (DM, HTN, Smoking, COPD, CAD, Cancer, CVA, ARF, Chemo, Hep., AIDS, mental health diagnosis, sleep apnea, morbid obesity)? @ -Broken heart syndrome/takaubo cardiomyopathy Was patient admitted / discharged? Hospital course, mention meds given and route, prescriptions, significant lab abnormalities, going to OR and other pertinent info. @ -Based on the patient's presentation and physical exam, he presents complaining of left-sided chest pain. Describes it as a pressure sensation. No history of cardiac stents. Cardiac catheter in February 2021 shows mild coronary artery disease. Presents for further evaluation at this time. Exam is unremarkable. Vital signs are within acceptable limits. Patiently provided with additional nitro glycerin tablets as well as oral aspirin. He was in agreement with this plan. He will also receive a 1 L fluid bolus. EKG showed no signs of acute ischemia. Chest x-ray unremarkable. Labs are remarkable for an undetectable troponin. On reevaluation, following one nitroglycerin tablet patient's pain has resolved although he is uncertain if the nitro tablets admitted or not. Does endorse a headache. Like to go home at this time. Patient's heart score is 3-4. I did recommend observation admission, and if not at least a second troponin. Patient declines admission but is amenable to at least obtaining a second troponin at this time. This will be obtained. He'll be given Toradol for his mild headache as well as Benadryl as he states his arm is itching. He was in agreement with this plan. 3 hour troponin will be obtained. Repeat troponin remains undetectable. At this time we discussed his workup again. He but like to go home. I believe this is reasonable concerning to undetectable troponins. Strict return precautions discussed. He was in agreement with the plan. I instructed the patient to follow up with their PCP in the next 1-3 days. I explained that the patient should return to the emergency department if they experience any worsening symptoms. Strict return precautions were discussed with the patient. The patient expressed understanding of these instructions. I answered all questions that the patient had. The patient was discharged home in good condition with their prescriptions and follow up information. Undiagnosed new problem with uncertain prognosis? @ -No Drug Therapy requiring intensive monitoring for toxicity (Heparin, Nitro, Insulin, Cardizem)? @ -No Were any procedures done? @ -No Diagnosis/symptom? @ -Atypical Chest pain Acute, or Chronic, or Acute on Chronic? @ -Acute Uncomplicated (without systemic symptoms) or Complicated (systemic symptoms)? @ -Uncomplicated Side effects of treatment? @ -No Exacerbation, Progression, or Severe Exacerbation? @ -No Poses a threat to life or bodily function? How? (Chest pain, [place], [place], pneumonia, PE, COPD, DKA, ARF, appy, cholecystitis, CVA, Diverticulitis, Homicidal, Suicidal, threat to staff... and all critical care pts) @ -No - Lab Data Result diagrams: 08/18/22 10:34 08/18/22 10:34 Lab Results 08/18/22 08/18/22 08/18/22 Range/Units 10:34 10:34 10:34 WBC 7.1 (3.8-10.6) k/uL RBC 4.71 (4.30-5.90) m/uL Hgb 15.1 (13.0-17.5) gm/dL Hct 46.1 (39.0-53.0) % MCV 97.8 (80.0-100.0) fL MCH 32.0 (25.0-35.0) pg MCHC 32.7 (31.0-37.0) g/dL RDW 14.2 (11.5-15.5) % Plt Count 236 (150-450) k/uL MPV 8.7 Neutrophils % 78 % Lymphocytes % 13 % Monocytes % 5 % Eosinophils % 3 % Basophils % 0 % Neutrophils # 5.5 (1.3-7.7) k/uL Lymphocytes # 0.9 L (1.0-4.8) k/uL Monocytes # 0.4 (0-1.0) k/uL Eosinophils # 0.2 (0-0.7) k/uL Basophils # 0.0 (0-0.2) k/uL PT 9.8 (9.0-12.0) sec INR 0.9 (<1.2) APTT 24.9 (22.0-30.0) sec Sodium 135 L (137-145) mmol/L Potassium 4.5 (3.5-5.1) mmol/L Chloride 100 (98-107) mmol/L Carbon Dioxide 25 (22-30) mmol/L Anion Gap 10 mmol/L BUN 12 (9-20) mg/dL Creatinine 0.71 (0.66-1.25) mg/dL Est GFR (CKD-EPI)AfAm >90 (>60 ml/min/1.73 sqM) Est GFR (CKD-EPI)NonAf >90 (>60 ml/min/1.73 sqM) Glucose 98 (74-99) mg/dL Calcium 9.2 (8.4-10.2) mg/dL Magnesium 1.8 (1.6-2.3) mg/dL Total Bilirubin 0.8 (0.2-1.3) mg/dL AST 25 (17-59) U/L ALT 21 (4-49) U/L Alkaline Phosphatase 75 (38-126) U/L Troponin I (0.000-0.034) ng/mL Total Protein 6.6 (6.3-8.2) g/dL Albumin 4.1 (3.5-5.0) g/dL Lipase 45 (23-300) U/L 08/18/22/ Range/Units 10:34 13:44 WBC (3.8-10.6) k/uL RBC (4.30-5.90) m/uL Hgb (13.0-17.5) gm/dL Hct (39.0-53.0) % MCV (80.0-100.0) fL MCH (25.0-35.0) pg MCHC (31.0-37.0) g/dL RDW (11.5-15.5) % Plt Count (150-450) k/uL MPV Neutrophils % % Lymphocytes % % Monocytes % % Eosinophils % % Basophils % % Neutrophils # (1.3-7.7) k/uL Lymphocytes # (1.0-4.8) k/uL Monocytes # (0-1.0) k/uL Eosinophils # (0-0.7) k/uL Basophils # (0-0.2) k/uL PT (9.0-12.0) sec INR (<1.2) APTT (22.0-30.0) sec Sodium (137-145) mmol/L Potassium (3.5-5.1) mmol/L Chloride (98-107) mmol/L Carbon Dioxide (22-30) mmol/L Anion Gap mmol/L BUN (9-20) mg/dL Creatinine (0.66-1.25) mg/dL Est GFR (CKD-EPI)AfAm (>60 ml/min/1.73 sqM) Est GFR (CKD-EPI)NonAf (>60 ml/min/1.73 sqM) Glucose (74-99) mg/dL Calcium (8.4-10.2) mg/dL Magnesium (1.6-2.3) mg/dL Total Bilirubin (0.2-1.3) mg/dL AST (17-59) U/L ALT (4-49) U/L Alkaline Phosphatase (38-126) U/L Troponin I <0.012 <0.012 (0.000-0.034) ng/mL Total Protein (6.3-8.2) g/dL Albumin (3.5-5.0) g/dL Lipase (23-300) U/L - EKG Data -: EKG Interpreted by Me EKG Comments: 12-lead Electrocardiogram Interpretation Note EKG was reviewed and interpreted by myself. 12-lead ECG performed at 1004 is interpreted by me as revealing normal sinus rhythm at a rate of 79 beats per minute. Right axis deviation. AR interval is 152 ms, QRS duration is 116 ms, QTc is 423 ms.. There were no ST or T wave abnormalities to suggest myocardial ischemia or injury. R wave progression across the precordium was satisfactory. By my interpretation this EKG is non-diagnostic for acute ischemia. When compared with EKG from October 2021, no significant change. Disposition Clinical Impression: Atypical chest pain Disposition: HOME SELF-CARE Condition: Good Instructions (If sedation given, give patient instructions): Chest Pain (ED) Is patient prescribed a controlled substance at d/c from ED?: No Referrals: Lul Garcia MD [Primary Care Provider] - 1-2 days Time of Disposition: 14:21
[2022-08-18 11:06] LABS: Basophils % (A) 0 %; Eosinophils # (A) 0.2 k/uL (0-0.7); Eosinophils % (A) 3 %; HCT 46.1 % (39.0-53.0); HGB 15.1 gm/dL (13.0-17.5); Lymphocytes # (A) 0.9 k/uL (1.0-4.8); Lymphocytes % (A) 13 %; MCHC 32.7 g/dL (31.0-37.0); MCV 97.8 fL (80.0-100.0); Mean Platelet Volume 8.7; Monocytes # (A) 0.4 k/uL (0-1.0); Monocytes % (A) 5 %; Neutrophils # (A) 5.5 k/uL (1.3-7.7); Neutrophils % (A) 78 %; Platelet Count 236 k/uL (150-450); RBC 4.71 m/uL (4.30-5.90); RDW 14.2 % (11.5-15.5); WBC 7.1 k/uL (3.8-10.6)
[2022-08-18 11:17] LABS: ALT 21 U/L (4-49); AST 25 U/L (17-59); African American GFR (CKD) >90 (>60 ml/min/1.73 sqM); Albumin 4.1 g/dL (3.5-5.0); Alkaline Phosphatase 75 U/L (38-126); Anion Gap 10 mmol/L; Blood Urea Nitrogen 12 mg/dL (9-20); Calcium 9.2 mg/dL (8.4-10.2); Carbon Dioxide 25 mmol/L (22-30); Chloride 100 mmol/L (98-107); Glucose 98 mg/dL (74-99); Lipase 45 U/L (23-300); Magnesium 1.8 mg/dL (1.6-2.3); Non-African American GFR(CKD) >90 (>60 ml/min/1.73 sqM); Potassium 4.5 mmol/L (3.5-5.1); Sodium 135 mmol/L (137-145); Total Bilirubin 0.8 mg/dL (0.2-1.3); Total Protein 6.6 g/dL (6.3-8.2)
[2022-08-18 11:26] LABS: INR 0.9 (<1.2); Partial Thromboplastin Time 24.9 sec (22.0-30.0); Prothrombin Time 9.8 sec (9.0-12.0)
[2022-08-18] MEDS ORDERED: KETOROLAC 15 MG/ML 1 ML VIAL IVP STA (12:01)
[2022-08-18] MEDS ORDERED: diphenhydrAMINE 25 MG CAP PO STA (12:01)
[2022-08-18 14:53] VITALS: BP 143/94; PULSE 90; RESP 16; TEMP 98.2
== END 2022-08-18 14:52 | disposition home or self-care (01) ==
LOC: EC 09:49
DX: R07.89 Other chest pain (principal); J44.9 Chronic obstructive pulmonary disease, unspecified; I25.2 Old myocardial infarction; Z87.891 Personal history of nicotine dependence; Z86.16 Personal history of COVID-19; Z88.0 Allergy status to penicillin; Z88.1 Allergy status to other antibiotic agents; Z88.2 Allergy status to sulfonamides; Z88.5 Allergy status to narcotic agent; Z88.6 Allergy status to analgesic agent; Z88.8 Allergy status to other drugs, medicaments and biological substances; Z91.010 Allergy to peanuts; Z91.041 Radiographic dye allergy status; Z79.51 Long term (current) use of inhaled steroids; Z79.899 Other long term (current) drug therapy
CPT/HCPCS: 36415; 93005; 80053; 83690; 83735; 84484; 85025; 85610; 85730; 71046; 99285; 96374; 96361 ×4; J1885

== ENCOUNTER 2022-09-06 08:29 | Day surgery (SDC) | payer MEDICARE ==
[2022-09-03 15:29] VITALS: BMI 20.2
--- NOTE | 2022-09-06 07:41 | P.GSHP ---
History of Present Illness H&P Date: 09/06/22 CHIEF COMPLAINT: Esophageal stricture HISTORY OF PRESENT ILLNESS: The patient is a 77-year-old male who presents reports dysphagia. Upper endoscopy was offered for further evaluation and management. PAST MEDICAL HISTORY: Please see list. PAST SURGICAL HISTORY: Please see list. MEDICATIONS: Please see list. ALLERGIES: Please see list. SOCIAL HISTORY: No illicit drug use FAMILY HISTORY: No reports of Crohn disease or ulcerative colitis. REVIEW OF ORGAN SYSTEMS: CONSTITUTIONAL: No reports of fevers or chills. GI: Denies any blood in stools or constipation. PHYSICAL EXAM: VITAL SIGNS: Stable GENERAL: Well-developed and pleasant in no acute distress. HEENT: No scleral icterus. Extraocular movements grossly intact. Moist buccal mucosa. NECK: Supple without lymphadenopathy. CHEST: Unlabored respirations. Equal bilateral excursions. CARDIOVASCULAR: Regular rate and rhythm. Distal 2+ pulses. ABDOMEN: Soft, nondistended. MUSCULOSKELETAL: No clubbing, cyanosis, or edema. ASSESSMENT: 1. Esophageal stricture PLAN: 1. Recommend proceeding with an upper endoscopy with rigid dilators. Past Medical History Past Medical History: Cancer, Chest Pain / Angina, COPD, GERD/Reflux Additional Past Medical History / Comment(s): Difficulty swallowing. 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 "Broken heart syndrome. after having covid was on meds for 6 mos and had cardiac cath per and no issues since" Lower back stimulator. Last Myocardial Infarction Date:: 05/25/14 History of Any Multi-Drug Resistant Organisms: None Reported Past Surgical History: Adenoidectomy, Appendectomy, Back Surgery, Bowel Resection, Cholecystectomy, Heart Catheterization, Hernia Repair, Orthopedic Brooke vania, Tonsillectomy Additional Past Surgical History / Comment(s): EGD/colonoscopy, cardiac cathetrization X2, several back surgeries including laminectomy, spinous process removed T11 and T12/cage/arturo, bilateral arthroscopic knee surgeries, bilateral thumb surgeries with right titanium joint, left rotator cuff repair, several nasal polypectomies, pain procedures - RFA cervical/back, bilateral inguinal hernia repairs, right orchiectomy, diaphragmatic hernia repair, section of sigmoid colon removed, back stimulator put in left hip for back pain at [facility], right hand surgery. Past Anesthesia/Blood Transfusion Reactions: No Reported Reaction Past Psychological History: No Psychological Hx Reported Additional Psychological History / Comment(s): Patient resides with his spouse of 55 yrs. He has chronic pain and debilitating migraines. He has a cane and walker which he uses prn. He has falls. Smoking Status: Former smoker Past Alcohol Use History: None Reported Additional Past Alcohol Use History / Comment(s): Started smoking in 1959 and quit in 2003, smoked 1 1/2ppd. Past Drug Use History: None Reported - Past Family History Father Family Medical History: Cancer Additional Family Medical History / Comment(s): Father of stomach cancer at the age of 65 yrs. Mother Family Medical History: No Reported History Additional Family Medical History / Comment(s): Mother of "old age". She was 83 yrs old. Brother(s) Family Medical History: Cancer, Diabetes Mellitus Additional Family Medical History / Comment(s): Brain tumor. Sister(s) Family Medical History: Cancer, Diabetes Mellitus Additional Family Medical History / Comment(s): Sisters breast cancer. Medications and Allergies Home Medications Medication Instructions Recorded Confirmed Type Albuterol Nebulized [Ventolin 2.5 mg INHALATION QID 08/16/21 09/03/22 History Nebulized] Nitroglycerin Sl Tabs [Nitrostat] 0.4 mg SL Q5M PRN 08/16/21 09/03/22 History SUMAtriptan succinate [Imitrex] 100 mg PO BID PRN 12/25/21 09/03/22 History Fluticasone/Umeclidin/Vilanter 1 puff INHALATION QAM 03/20/22 09/03/22 History [Trelegy Ellipta 200-62.5-25] Omeprazole [PriLOSEC] 40 mg PO DAILY #30 cap 07/13/22 09/03/22 Rx Allergies Allergy/AdvReac Type Severity Reaction Status Date / Time banana Allergy Migraine Verified 09/03/22 15:31 celecoxib [From Celebrex] Allergy Rash/Hives Verified 09/03/22 15:16 Iodinated Contrast Media Allergy Anaphylaxis Verified 09/03/22 15:16 [Iodinated Contrast Media - IV Dye] iodine Allergy Anaphylaxis Verified 09/03/22 15:16 nystatin Allergy Rash/Hives, Verified 09/03/22 15:16 Swelling, Difficulty breathing Penicillins Allergy Anaphylaxis Verified 09/03/22 15:16 Sulfa (Sulfonamide Allergy Anaphylaxis Verified 09/03/22 15:16 Antibiotics) triamcinolone Allergy Rash/Hives Verified 09/03/22 15:16 fentanyl AdvReac Severe SEVERE Verified 09/03/22 15:16 MIGRAINES adhesive AdvReac tears skin Verified 09/03/22 15:16 chocolate flavor AdvReac TRIGGERS Verified 09/03/22 15:16 MIGRAINE duloxetine [From Cymbalta] AdvReac Headaches Verified 09/03/22 15:16 gabapentin AdvReac Confusion Verified 09/03/22 15:16 Opioids - Morphine Analogues AdvReac Migraine Verified 09/03/22 15:16 Opioids-Meperidine and AdvReac Migraine Verified 09/03/22 15:16 Related peanut AdvReac TRIGGERS Verified 09/03/22 15:16 MIGRAINES tree nut [Nut] AdvReac HEADACHE Verified 09/03/22 15:16 yellow dye AdvReac HEADACHE Verified 09/03/22 15:16
[2022-09-06 09:16] VITALS: TEMP 98.3
[2022-09-06] MEDS: LACTATED RINGERS 1,000 ML IV SCH ×2 (09:16→09:45)
[2022-09-06] MEDS ORDERED: PROPOFOL 10 MG/ML 20 ML VIAL IV ONE (09:45)
--- NOTE | 2022-09-06 10:11 | P.PCN ---
Date of Procedure: 09/06/22 Description of Procedure: PREOPERATIVE DIAGNOSIS: Dysphagia. Presbyesophagus Upper esophageal stenosis POSTOPERATIVE DIAGNOSIS: Dysphagia. Presbyesophagus Upper esophageal stenosis OPERATION: Esophagogastroduodenoscopy with rigid dilator over the guidewire 57 Fr. SURGEON: Bonnie Padilla MD ANESTHESIA: MAC. INDICATIONS: The patient is a 77-year-old male who presents with a history of dysphagia. Benefits and risks of the procedure were described. Informed consent was obtained. DESCRIPTION: The patient was brought into the endoscopy suite and laid in the left lateral decubitus position. After a timeout was confirmed, the procedure was initiated. An Olympus gastroscope was passed and the stomach was entered. Mild gastritis was identified. The scope was advanced to the duodenum which was unremarkable. Retroflexion the scope confirmed a Hill grade 2 lower esophageal valve. Next using an Tongan rigid dilator, a guidewire was placed through the pediatric gastroscope. Next the scope was withdrawn. A 57-Cuban rigid Tongan dilator was passed carefully along the posterior oropharynx to 40 cm and left in place for 2-3 minutes stretch. The dilator was withdrawn including the guidewire. The scope was reentered along the posterior oropharynx with no findings of full-thickness tear of the upper esophageal sphincter. No full-thickness injury was encountered. The GI tract was desufflated. The patient tolerated the procedure well. FINDINGS: Squamocolumnar junction unremarkable at 38 cm. Presbyesophagus for esophageal dysmotility Tongan rigid dilator 57-Cuban completed. No recurrent hiatal hernia Hill grade 1 lower esophageal valve. LA grade A esophagitis. RECOMMENDATIONS: Upper endoscopy as needed Plan - Discharge Summary Discharge Rx Participant: No New Discharge Prescriptions: New Loratadine-Pseudoeph 5-120 mg [Claritin-D 12 HR] 1 each PO Q12HR #20 tab Continue Albuterol Nebulized [Ventolin Nebulized] 2.5 mg INHALATION QID Nitroglycerin Sl Tabs [Nitrostat] 0.4 mg SL Q5M PRN PRN Reason: Chest Pain SUMAtriptan succinate [Imitrex] 100 mg PO BID PRN PRN Reason: Migraine Headache Fluticasone/Umeclidin/Vilanter [Trelegy Ellipta 200-62.5-25] 1 puff INHALATION QAM Discontinued Omeprazole [PriLOSEC] 40 mg PO DAILY #30 cap Discharge Medication List Albuterol Nebulized [Ventolin Nebulized] 2.5 mg INHALATION QID 08/16/21 [History] Nitroglycerin Sl Tabs [Nitrostat] 0.4 mg SL Q5M PRN 08/16/21 [History] SUMAtriptan succinate [Imitrex] 100 mg PO BID PRN 12/25/21 [History] Fluticasone/Umeclidin/Vilanter [Trelegy Ellipta 200-62.5-25] 1 puff INHALATION QAM 03/20/22 [History] Loratadine-Pseudoeph 5-120 mg [Claritin-D 12 HR] 1 each PO Q12HR #20 tab 09/06/22 [Rx] Follow up Appointment(s)/Referral(s): Bonnie Padilla MD [STAFF PHYSICIAN] - As Needed Patient Instructions/Handouts: Esophageal Dilation (DC) Activity/Diet/Wound Care/Special Instructions: Avoid cold beverages. Diet as tolerated Discharge Disposition: HOME SELF-CARE
[2022-09-06 10:24] VITALS: BP 112/71; PULSE 69; RESP 20
== END 2022-09-06 10:40 | disposition home or self-care (01) ==
LOC: ORWHC2ENDO 08:29
PROVIDERS: ATTEND Surgery Plastic and Reconstructive Surgery
DX: K22.2 Esophageal obstruction (principal); J44.9 Chronic obstructive pulmonary disease, unspecified; I25.2 Old myocardial infarction; G89.29 Other chronic pain; K21.9 Gastro-esophageal reflux disease without esophagitis; Z86.16 Personal history of COVID-19; Z85.47 Personal history of malignant neoplasm of testis; Z85.51 Personal history of malignant neoplasm of bladder; Z90.49 Acquired absence of other specified parts of digestive tract; Z90.79 Acquired absence of other genital organ(s); Z87.891 Personal history of nicotine dependence; Z83.3 Family history of diabetes mellitus; Z80.3 Family history of malignant neoplasm of breast; Z79.899 Other long term (current) drug therapy; Z79.51 Long term (current) use of inhaled steroids
CPT/HCPCS: 43249; J2704

== ENCOUNTER → 2022-10-24 | Day surgery (SDC) | payer MEDICARE ==
[~2022-10-24] MED LIST changes: -ACETAMINOPHEN TAB 500 MG TAB PO PRN; -CHLORHEXIDINE GLUCONATE 15 ML CUP MUCOUS MEM PRN; -HEPARIN SODIUM,PORCINE/PF 5,000 UNIT/0.5 ML SYRINGE SQ PRN; +LACTATED RINGERS 1,000 ML IV ONE; +LIDOCAINE 2% INJ 20 MG/ML (2 ML VIAL) ONE; -ONDANSETRON 4 MG/2 ML VIAL IVP ONE; -PANTOPRAZOLE 40 MG/10 ML VIAL IVP PRN; +PROPOFOL 10 MG/ML 20 ML VIAL IV ONE; -TAMSULOSIN 0.4 MG CAP.ER.24H PO STA
[2022-10-24 10:02] VITALS: TEMP 97
--- NOTE | 2022-10-24 11:16 | P.GSHP ---
History of Present Illness H&P Date: 10/24/22 CHIEF COMPLAINT: Esophageal stricture HISTORY OF PRESENT ILLNESS: The patient is a 77-year-old male who presents reports dysphagia. Upper endoscopy was offered for further evaluation and management. PAST MEDICAL HISTORY: Please see list. PAST SURGICAL HISTORY: Please see list. MEDICATIONS: Please see list. ALLERGIES: Please see list. SOCIAL HISTORY: No illicit drug use FAMILY HISTORY: No reports of Crohn disease or ulcerative colitis. REVIEW OF ORGAN SYSTEMS: CONSTITUTIONAL: No reports of fevers or chills. GI: Denies any blood in stools or constipation. PHYSICAL EXAM: VITAL SIGNS: Stable GENERAL: Well-developed and pleasant in no acute distress. HEENT: No scleral icterus. Extraocular movements grossly intact. Moist buccal mucosa. NECK: Supple without lymphadenopathy. CHEST: Unlabored respirations. Equal bilateral excursions. CARDIOVASCULAR: Regular rate and rhythm. Distal 2+ pulses. ABDOMEN: Soft, nondistended. MUSCULOSKELETAL: No clubbing, cyanosis, or edema. ASSESSMENT: 1. Esophageal stricture PLAN: 1. Recommend proceeding with an upper endoscopy with rigid dilators. Past Medical History Past Medical History: Cancer, Chest Pain / Angina, COPD, GERD/Reflux, Osteoarthritis (OA) Additional Past Medical History / Comment(s): Difficulty swallowing. 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 "Broken heart syndrome. after having covid was on meds for 6 mos and had cardiac cath per and no issues s brittany" Lower back stimulator. encapsulated prostate being watched, Last Myocardial Infarction Date:: 05/25/14 History of Any Multi-Drug Resistant Organisms: None Reported Past Surgical History: Adenoidectomy, Appendectomy, Back Surgery, Bowel Resection, Cholecystectomy, Heart Catheterization, Hernia Repair, Orthopedic Surgery, Tonsillectomy Additional Past Surgical History / Comment(s): EGD/colonoscopy, cardiac cathetrization X2, several back surgeries including laminectomy, spinous process removed T11 and T12/cage/arturo, bilateral arthroscopic knee surgeries, bilateral thumb surgeries with right titanium joint, left rotator cuff repair, several nasal polypectomies, pain procedures - RFA cervical/back, bilateral inguinal hernia repairs, right orchiectomy, diaphragmatic hernia repair, section of sigmoid colon removed, back stimulator put in left hip for back pain at [facility], right hand surgery. Past Anesthesia/Blood Transfusion Reactions: No Reported Reaction Smoking Status: Former smoker - Past Family History Father Family Medical History: Cancer Additional Family Medical History / Comment(s): Father of stomach cancer at the age of 65 yrs. Mother Family Medical History: No Reported History Additional Family Medical History / Comment(s): Mother of "old age". She was 83 yrs old. Brother(s) Family Medical History: Cancer, Diabetes Mellitus Additional Family Medical History / Comment(s): Brain tumor. Sister(s) Family Medical History: Cancer, Diabetes Mellitus Additional Family Medical History / Comment(s): Sisters breast cancer. Medications and Allergies Home Medications Medication Instructions Recorded Confirmed Type Albuterol Nebulized [Ventolin 2.5 mg INHALATION QID 08/16/21 10/24/22 History Nebulized] Nitroglycerin Sl Tabs [Nitrostat] 0.4 mg SL Q5M PRN 08/16/21 10/24/22 History SUMAtriptan succinate [Imitrex] 100 mg PO BID PRN 12/25/21 10/24/22 History Fluticasone/Umeclidin/Vilanter 1 puff INHALATION QAM 03/20/22 10/24/22 History [Trelegy Ellipta 200-62.5-25] Loratadine-Pseudoeph 5-120 mg 1 each PO Q12HR #20 tab 09/06/22 10/24/22 Rx [Claritin-D 12 HR] Aspirin/Acetaminophen/Caffeine 1 tab PO DIRECTED 10/23/22 10/24/22 History [Excedrin Migraine Caplet] Allergies Allergy/AdvReac Type Severity Reaction Status Date / Time banana Allergy Migraine Verified 10/24/22 09:56 celecoxib [From Celebrex] Allergy Rash/Hives Verified 10/24/22 09:56 Iodinated Contrast Media Allergy Anaphylaxis Verified 10/24/22 09:56 [Iodinated Contrast Media - IV Dye] iodine Allergy Anaphylaxis Verified 10/24/22 09:56 nystatin Allergy Rash/Hives, Verified 10/24/22 09:56 Swelling, Difficulty breathing Penicillins Allergy Anaphylaxis Verified 10/24/22 09:56 Sulfa (Sulfonamide Allergy Anaphylaxis Verified 10/24/22 09:56 Antibiotics) triamcinolone Allergy Rash/Hives Verified 10/24/22 09:56 fentanyl AdvReac Severe SEVERE Verified 10/24/22 09:56 MIGRAINES adhesive AdvReac tears skin Verified 10/24/22 09:56 chocolate flavor AdvReac TRIGGERS Verified 10/24/22 09:56 MIGRAINE duloxetine [From Cymbalta] AdvReac Headaches Verified 10/24/22 09:56 gabapentin AdvReac Confusion Verified 10/24/22 09:56 Opioids - Morphine Analogues AdvReac Migraine Verified 10/24/22 09:56 Opioids-Meperidine and AdvReac Migraine Verified 10/24/22 09:56 Related peanut AdvReac TRIGGERS Verified 10/24/22 09:56 MIGRAINES tree nut [Nut] AdvReac HEADACHE Verified 10/24/22 09:56 yellow dye AdvReac HEADACHE Verified 10/24/22 09:56 Surgical - Exam Vital Signs Temp Pulse Resp BP Pulse Ox 97.0 F L 67 18 187/79 95 10/24/22 09:59 10/24/22 09:59 10/24/22 09:59 10/24/22 09:59 10/24/22 09:59
--- NOTE | 2022-10-24 11:20 | P.PCN ---
Date of Procedure: 10/24/22 Description of Procedure: PREOPERATIVE DIAGNOSIS: Dysphagia. Presbyesophagus Upper esophageal stenosis POSTOPERATIVE DIAGNOSIS: Dysphagia. Presbyesophagus Upper esophageal stenosis Acute gastric ulcer or bleeding OPERATION: Esophagogastroduodenoscopy with rigid dilator over the guidewire 60 Fr. Esophagogastroduodenoscopy with cold biopsies antrum/duodenal SURGEON: Bonnie Padilla MD ANESTHESIA: MAC. INDICATIONS: The patient is a 77-year-old male who presents with esophageal obstruction and dysphagia. Benefits and risks of the procedure were described. Informed consent was obtained. DESCRIPTION: The patient was brought into the endoscopy suite and laid in the left lateral decubitus position. After a timeout was confirmed, the procedure was initiated. An Olympus gastroscope was passed and the stomach was entered. Acute on chronic gastritis was identified. The scope was advanced to the duodenum which was unremarkable. Retroflexion the scope confirmed a Hill grade 1 lower esophageal valve. Next using an Argentine rigid dilator, a guidewire was placed through the pediatric gastroscope. Next the scope was withdrawn. A 60-Cypriot rigid Argentine dilator was passed carefully along the posterior oropharynx to 40 cm and left in place for 2-3 minutes stretch. The dilator was withdrawn including the guidewire. The scope was reentered along the posterior oropharynx with no findings of full-thickness tear of the upper esophageal sphincter. Biopsies were obtained of the antrum and duodenum for acute gastric ulcer and gastritis. No full-thickness injury was encountered. The GI tract was desufflated. The patient tolerated the procedure well. FINDINGS: Squamocolumnar junction unremarkable at 38 cm. Presbyesophagus for esophageal dysmotility Argentine rigid dilator 60-Cypriot completed. No recurrent hiatal hernia Hill grade 1 lower esophageal valve. LA grade A esophagitis. Moderate to severe chronic gastritis Acute gastric ulcer bleeding Biopsies obtained of duodenum and gastric ulcer RECOMMENDATIONS: Repeat upper endoscopy in 6 weeks with dilation Carafate 1 g twice a day for gastric ulcer Plan - Discharge Summary Discharge Rx Participant: No New Discharge Prescriptions: New Sucralfate [Carafate] 1 gm PO BID #60 tablet Continue Albuterol Nebulized [Ventolin Nebulized] 2.5 mg INHALATION QID Loratadine-Pseudoeph 5-120 mg [Claritin-D 12 Hour] 1 each PO Q12HR #20 tab Nitroglycerin Sl Tabs [Nitrostat] 0.4 mg SL Q5M PRN PRN Reason: Chest Pain SUMAtriptan succinate [Imitrex] 100 mg PO BID PRN PRN Reason: Migraine Headache Fluticasone/Umeclidin/Vilanter [Trelegy Ellipta 200-62.5-25] 1 puff INHALATION QAM Discontinued Aspirin/Acetaminophen/Caffeine [Excedrin Migraine Caplet] 1 tab PO DIRECTED Discharge Medication List Albuterol Nebulized [Ventolin Nebulized] 2.5 mg INHALATION QID 08/16/21 [History] Nitroglycerin Sl Tabs [Nitrostat] 0.4 mg SL Q5M PRN 08/16/21 [History] SUMAtriptan succinate [Imitrex] 100 mg PO BID PRN 12/25/21 [History] Fluticasone/Umeclidin/Vilanter [Trelegy Ellipta 200-62.5-25] 1 puff INHALATION QAM 03/20/22 [History] Loratadine-Pseudoeph 5-120 mg [Claritin-D 12 Hour] 1 each PO Q12HR #20 tab 09/06/22 [Rx] Sucralfate [Carafate] 1 gm PO BID #60 tablet 10/24/22 [Rx] Follow up Appointment(s)/Referral(s): Bonnie Padilla MD [STAFF PHYSICIAN] - As Needed Patient Instructions/Handouts: Esophageal Dilation (DC) Discharge Disposition: HOME SELF-CARE
[2022-10-24 11:25] VITALS: BP 146/71; PULSE 58; RESP 20
== END | disposition home or self-care (01) ==
LOC: ORWHC2ENDO 09:09
PROVIDERS: ATTEND Surgery Plastic and Reconstructive Surgery
DX: K29.50 Unspecified chronic gastritis without bleeding (principal); K22.2 Esophageal obstruction; K21.9 Gastro-esophageal reflux disease without esophagitis; M19.90 Unspecified osteoarthritis, unspecified site; J44.9 Chronic obstructive pulmonary disease, unspecified; Z85.51 Personal history of malignant neoplasm of bladder; Z87.891 Personal history of nicotine dependence; Z80.0 Family history of malignant neoplasm of digestive organs; Z90.49 Acquired absence of other specified parts of digestive tract; Z98.890 Other specified postprocedural states; Z79.51 Long term (current) use of inhaled steroids; Z79.899 Other long term (current) drug therapy; Z88.6 Allergy status to analgesic agent; Z91.018 Allergy to other foods; Z91.041 Radiographic dye allergy status; Z88.1 Allergy status to other antibiotic agents; Z88.0 Allergy status to penicillin; Z88.2 Allergy status to sulfonamides; Z88.8 Allergy status to other drugs, medicaments and biological substances
CPT/HCPCS: 43248; 88305; 43239; J2704; J2001; 43249

== ENCOUNTER 2022-12-05 08:58 | Day surgery (SDC) | payer MEDICARE ==
[~2022-12-05 08:58] MED LIST changes: -LACTATED RINGERS 1,000 ML IV ONE; +LIDOCAINE 1% (10MG/ML) FOR IV START INTRADERMA PRN; -LIDOCAINE 2% INJ 20 MG/ML (2 ML VIAL) ONE; -PROPOFOL 10 MG/ML 20 ML VIAL IV ONE
[2022-12-05 09:17] VITALS: TEMP 97.8
[2022-12-05] MEDS: LACTATED RINGERS 1,000 ML IV SCH ×2 (09:19→09:20)
[2022-12-05] MEDS ORDERED: LIDOCAINE 2% (PF) 20 MG/ML 5 ML VIAL ONE (09:21)
[2022-12-05] MEDS ORDERED: PROPOFOL 10 MG/ML 20 ML VIAL IV ONE (09:21)
--- NOTE | 2022-12-05 09:47 | P.GSHP ---
History of Present Illness H&P Date: 12/05/22 CHIEF COMPLAINT: Esophageal stricture HISTORY OF PRESENT ILLNESS: The patient is a 77-year-old male who presents reports dysphagia. Upper endoscopy was offered for further evaluation and management. PAST MEDICAL HISTORY: Please see list. PAST SURGICAL HISTORY: Please see list. MEDICATIONS: Please see list. ALLERGIES: Please see list. SOCIAL HISTORY: No illicit drug use FAMILY HISTORY: No reports of Crohn disease or ulcerative colitis. REVIEW OF ORGAN SYSTEMS: CONSTITUTIONAL: No reports of fevers or chills. GI: Denies any blood in stools or constipation. PHYSICAL EXAM: VITAL SIGNS: Stable GENERAL: Well-developed and pleasant in no acute distress. HEENT: No scleral icterus. Extraocular movements grossly intact. Moist buccal mucosa. NECK: Supple without lymphadenopathy. CHEST: Unlabored respirations. Equal bilateral excursions. CARDIOVASCULAR: Regular rate and rhythm. Distal 2+ pulses. ABDOMEN: Soft, nondistended. MUSCULOSKELETAL: No clubbing, cyanosis, or edema. ASSESSMENT: 1. Esophageal stricture PLAN: 1. Recommend proceeding with an upper endoscopy with rigid dilators. Past Medical History Past Medical History: Cancer, Chest Pain / Angina, COPD, Osteoarthritis (OA) Additional Past Medical History / Comment(s): Difficulty swallowing. Hx bladder cancer 15 yrs ago, hx right testicular cancer - surgery & radiation 20+ yrs ago, occassional migraines, , hx gastritis, ulcer with last scope. 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 "Broken heart syndrome. after having covid was on meds for 6 mos and had cardiac cath per and no issues since" Lower back stimulator. encapsulated prostate being watched, Last Myocardial Infarction Date:: 05/25/14 History of Any Multi-Drug Resistant Organisms: None Reported Past Surgical History: Adenoidectomy, Appendectomy, Back Surgery, Bowel Resection, Cholecystectomy, Heart Catheterization, Hernia Repair, Orthopedic Surgery, Tonsillectomy Additional Past Surgical History / Comment(s): EGD/colonoscopy, cardiac cathetrization X2, several back surgeries including laminectomy, spinous process removed T11 and T12/cage/arturo, bilateral arthroscopic knee surgeries, bilateral thumb surgeries with right titanium joint, left rotator cuff repair, several nasal polypectomies, pain procedures - RFA cervical/back, bilateral inguinal hernia repairs, right orchiectomy, diaphragmatic hernia repair, section of sigmoid colon removed, back stimulator put in left hip for back pain at [facility], right hand surgery. Past Anesthesia/Blood Transfusion Reactions: No Reported Reaction Smoking Status: Former smoker - Past Family History Father Family Medical History: Cancer Additional Family Medical History / Comment(s): Father of stomach cancer at the age of 65 yrs. Mother Family Medical History: No Reported History Additional Family Medical History / Comment(s): Mother of "old age". She was 83 yrs old. Brother(s) Family Medical History: Cancer, Diabetes Mellitus Additional Family Medical History / Comment(s): Brain tumor. Sister(s) Family Medical History: Cancer, Diabetes Mellitus Additional Family Medical History / Comment(s): Sisters breast cancer. Medications and Allergies Home Medications Medication Instructions Recorded Confirmed Type Albuterol Nebulized [Ventolin 2.5 mg INHALATION QID PRN 08/16/21 12/05/22 History Nebulized] Nitroglycerin Sl Tabs [Nitrostat] 0.4 mg SL Q5M PRN 08/16/21 12/05/22 History SUMAtriptan succinate [Imitrex] 100 mg PO BID PRN 12/25/21 12/05/22 History Fluticasone/Umeclidin/Vilanter 1 puff INHALATION QAM 03/20/22 12/05/22 History [Trelegy Ellipta 200-62.5-25] Sucralfate [Carafate] 1 gm PO BID #60 tablet 10/24/22 12/05/22 Rx Loratadine-Pseudoeph 5-120 mg 1 each PO Q12HR PRN 11/29/22 12/05/22 History [Claritin-D 12 Hour] Naproxen Sodium [Aleve] 220 mg PO DIRECTED PRN 11/29/22 12/05/22 History Allergies Allergy/AdvReac Type Severity Reaction Status Date / Time banana Allergy Migraine Verified 12/05/22 09:08 celecoxib [From Celebrex] Allergy Rash/Hives Verified 12/05/22 09:08 Iodinated Contrast Media Allergy Anaphylaxis Verified 12/05/22 09:08 [Iodinated Contrast Media - IV Dye] iodine Allergy Anaphylaxis Verified 12/05/22 09:08 nystatin Allergy Rash/Hives, Verified 12/05/22 09:08 Swelling, Difficulty breathing Penicillins Allergy Anaphylaxis Verified 12/05/22 09:08 Sulfa (Sulfonamide Allergy Anaphylaxis Verified 12/05/22 09:08 Antibiotics) triamcinolone Allergy Rash/Hives Verified 12/05/22 09:08 fentanyl AdvReac Severe SEVERE Verified 12/05/22 09:08 MIGRAINES adhesive AdvReac tears skin Verified 12/05/22 09:08 chocolate flavor AdvReac TRIGGERS Verified 12/05/22 09:08 MIGRAINE duloxetine [From Cymbalta] AdvReac Headaches Verified 12/05/22 09:08 gabapentin AdvReac Confusion Verified 12/05/22 09:08 Opioids - Morphine Analogues AdvReac Migraine Verified 12/05/22 09:08 Opioids-Meperidine and AdvReac Migraine Verified 12/05/22 09:08 Related peanut AdvReac TRIGGERS Verified 12/05/22 09:08 MIGRAINES tree nut [Nut] AdvReac HEADACHE Verified 12/05/22 09:08 yellow dye AdvReac HEADACHE Verified 12/05/22 09:08 Surgical - Exam Vital Signs Temp Pulse Resp BP Pulse Ox 97.8 F 69 20 129/84 97 12/05/22 09:12 12/05/22 09:12 12/05/22 09:12 12/05/22 09:12 12/05/22 09:12
--- NOTE | 2022-12-05 09:54 | P.PCN ---
Date of Procedure: 12/05/22 Description of Procedure: PREOPERATIVE DIAGNOSIS: Dysphagia. Presbyesophagus Upper esophageal stenosis POSTOPERATIVE DIAGNOSIS: Dysphagia. Presbyesophagus Upper esophageal stenosis Acute gastric ulcer with bleeding OPERATION: Esophagogastroduodenoscopy with rigid dilator over the guidewire 60 Fr. SURGEON: Bonnie Padilla MD ANESTHESIA: MAC. INDICATIONS: The patient is a 77-year-old male who presents with esophageal obstruction and dysphagia. Benefits and risks of the procedure were described. Informed consent was obtained. DESCRIPTION: The patient was brought into the endoscopy suite and laid in the left lateral decubitus position. After a timeout was confirmed, the procedure was initiated. An Olympus gastroscope was passed and the stomach was entered. Acute on chronic gastritis was identified. The scope was advanced to the duodenum which was unremarkable. Retroflexion the scope confirmed a Hill grade 1 lower esophageal valve. Next using an Citizen Of [place] rigid dilator, a guidewire was placed through the pediatric gastroscope. Next the scope was withdrawn. A 60-Egyptian rigid Americ an dilator was passed carefully along the posterior oropharynx to 40 cm and left in place for 2-3 minutes stretch. The dilator was withdrawn including the guidewire. The scope was reentered along the posterior oropharynx with no findings of full-thickness tear of the upper esophageal sphincter. No full-thickness injury was encountered. The GI tract was desufflated. The patient tolerated the procedure well. FINDINGS: Squamocolumnar junction unremarkable at 38 cm. Presbyesophagus for esophageal dysmotility Citizen Of [place] rigid dilator 60-Egyptian completed. No recurrent hiatal hernia Hill grade 1 lower esophageal valve. LA grade A esophagitis. Moderate to severe chronic gastritis Acute gastric ulcer bleeding RECOMMENDATIONS: Carafate 1 g 3 times daily Discontinue NSAIDs Plan - Discharge Summary Discharge Rx Participant: No New Discharge Prescriptions: New Sucralfate [Carafate] 1 gm PO TID #120 tablet Continue Albuterol Nebulized [Ventolin Nebulized] 2.5 mg INHALATION QID PRN PRN Reason: Shortness Of Breath Loratadine-Pseudoeph 5-120 mg [Claritin-D 12 Hour] 1 each PO Q12HR PRN PRN Reason: Allergy Symptoms Nitroglycerin Sl Tabs [Nitrostat] 0.4 mg SL Q5M PRN PRN Reason: Chest Pain SUMAtriptan succinate [Imitrex] 100 mg PO BID PRN PRN Reason: Migraine Headache Fluticasone/Umeclidin/Vilanter [Trelegy Ellipta 200-62.5-25] 1 puff INHALATION QAM Discontinued Sucralfate [Carafate] 1 gm PO BID #60 tablet Naproxen Sodium [Aleve] 220 mg PO DIRECTED PRN PRN Reason: Pain Discharge Medication List Albuterol Nebulized [Ventolin Nebulized] 2.5 mg INHALATION QID PRN 08/16/21 [History] Nitroglycerin Sl Tabs [Nitrostat] 0.4 mg SL Q5M PRN 08/16/21 [History] SUMAtriptan succinate [Imitrex] 100 mg PO BID PRN 12/25/21 [History] Fluticasone/Umeclidin/Vilanter [Trelegy Ellipta 200-62.5-25] 1 puff INHALATION QAM 03/20/22 [History] Loratadine-Pseudoeph 5-120 mg [Claritin-D 12 Hour] 1 each PO Q12HR PRN 11/29/22 [History] Sucralfate [Carafate] 1 gm PO TID #120 tablet 12/05/22 [Rx] Follow up Appointment(s)/Referral(s): Bonnie Padilla MD [STAFF PHYSICIAN] - 12/25/22 10:30 am Patient Instructions/Handouts: Diet for Stomach Ulcers and Gastritis (ED) Discharge Disposition: HOME SELF-CARE
[2022-12-05 10:08] VITALS: BP 113/70; PULSE 67; RESP 17
== END 2022-12-05 10:29 | disposition home or self-care (01) ==
LOC: ORWHC2ENDO 08:58
PROVIDERS: ATTEND Surgery Plastic and Reconstructive Surgery
DX: K22.2 Esophageal obstruction (principal); K25.4 Chronic or unspecified gastric ulcer with hemorrhage; I25.2 Old myocardial infarction; J44.9 Chronic obstructive pulmonary disease, unspecified; K22.89 Other specified disease of esophagus; K25.3 Acute gastric ulcer without hemorrhage or perforation; M19.90 Unspecified osteoarthritis, unspecified site; Z79.899 Other long term (current) drug therapy; Z85.47 Personal history of malignant neoplasm of testis; Z85.51 Personal history of malignant neoplasm of bladder; Z86.16 Personal history of COVID-19; Z87.19 Personal history of other diseases of the digestive system; Z87.891 Personal history of nicotine dependence; Z88.0 Allergy status to penicillin; Z88.1 Allergy status to other antibiotic agents; Z88.2 Allergy status to sulfonamides; Z88.5 Allergy status to narcotic agent; Z88.6 Allergy status to analgesic agent; Z88.8 Allergy status to other drugs, medicaments and biological substances; Z90.49 Acquired absence of other specified parts of digestive tract
CPT/HCPCS: 43248; J2704; J2001; 43249

== ENCOUNTER 2023-02-11 17:40 | Observation (INO) | payer MEDICARE ==
--- NOTE | 2023-02-11 18:45 | XR ---
EXAMINATION TYPE: XR chest 2V DATE OF EXAM: 02/11/2023 COMPARISON: 08/18/2022 INDICATION: Chest pain TECHNIQUE: Frontal and lateral views of the chest are obtained. FINDINGS: The heart size is normal. The pulmonary vasculature is normal. There is opacity over the left lower lung field measuring approximately 5 cm in size. Consider pneumo andreina. Developing mass could be considered. There is chronic elevation of the right diaphragm. Stimulator leads are within the midline.. IMPRESSION: 1. Opacification left lower lobe. Correlate for pneumonia or mass. Follow-up exams are recommended.
[2023-02-11 18:47] LABS: Basophils # (A) 0.1 k/uL (0-0.2); Basophils % (A) 1 %; Eosinophils # (A) 0.2 k/uL (0-0.7); Eosinophils % (A) 3 %; HCT 44.9 % (39.0-53.0); HGB 14.9 gm/dL (13.0-17.5); Lymphocytes # (A) 1.7 k/uL (1.0-4.8); Lymphocytes % (A) 21 %; MCH 31.9 pg (25.0-35.0); MCHC 33.2 g/dL (31.0-37.0); MCV 96.1 fL (80.0-100.0); Mean Platelet Volume 8.7; Monocytes # (A) 0.6 k/uL (0-1.0); Monocytes % (A) 7 %; Neutrophils # (A) 5.4 k/uL (1.3-7.7); Neutrophils % (A) 66 %; Platelet Count 244 k/uL (150-450); RBC 4.67 m/uL (4.30-5.90); RDW 14.5 % (11.5-15.5); WBC 8.2 k/uL (3.8-10.6)
--- NOTE | 2023-02-11 18:50 | ED ---
Chest Pain HPI - General Source: patient, family Mode of arrival: wheelchair Limitations: no limitations <Jordan Garcia - Last Filed: 02/11/23 18:49> - General Source: patient, family, RN notes reviewed Mode of arrival: wheelchair Limitations: no limitations <Julius Magallon - Last Filed: 02/11/23 20:22> - General Chief Complaint: Chest Pain Stated Complaint: left side chest pain to elbow Time Seen by Provider: 02/11/23 18:49 - History of Present Illness Initial Comments: 77-year-old male presenting to the ED with a chief complaint of chest pain. Patient states approximately 3 PM started to experience chest pain on the left side of his chest. Patient reports pain radiates to his left arm. For this, took nitro which patient reports relieved the pain. (Jordan Garcia) 77-year-old male presents emergency Department with chief complaint of chest pain. Patient states that he's been having some on-and-off issues but worsened today in which he took a nitro. He states that it alleviate his symptoms. He did have pain rating down his arm and felt some numbness in his hand. Patient denies any headache or dizziness. Patient states she saw his residential counselor as he thought the pain yesterday and chest was from his lungs he states that his residential counselor vitamin E to see cardiology as soon as possible given his symptoms. (Julius Magallon) - Related Data Home Medications Medication Instructions Recorded Confirmed Albuterol Nebulized [Ventolin 2.5 mg INHALATION QID PRN 08/16/21 12/05/22 Nebulized] Nitroglycerin Sl Tabs [Nitrostat] 0.4 mg SL Q5M PRN 08/16/21 12/05/22 SUMAtriptan succinate [Imitrex] 100 mg PO BID PRN 12/25/21 12/05/22 Fluticasone/Umeclidin/Vilanter 1 puff INHALATION QAM 03/20/22 12/05/22 [Trelegy Ellipta 200-62.5-25] Loratadine-Pseudoeph 5-120 mg 1 each PO Q12HR PRN 11/29/22 12/05/22 [Claritin-D 12 Hour] Previous Rx's Medication Instructions Recorded Sucralfate [Carafate] 1 gm PO TID #120 tablet 10/11/23 Allergies Allergy/AdvReac Type Severity Reaction Status Date / Time banana Allergy Migraine Verified 12/05/22 09:08 celecoxib [From Celebrex] Allergy Rash/Hives Verified 12/05/22 09:08 Iodinated Contrast Media Allergy Anaphylaxis Verified 12/05/22 09:08 [Iodinated Contrast Media - IV Dye] iodine Allergy Anaphylaxis Verified 12/05/22 09:08 nystatin Allergy Rash/Hives, Verified 12/05/22 09:08 Swelling, Difficulty breathing Penicillins Allergy Anaphylaxis Verified 12/05/22 09:08 Sulfa (Sulfonamide Allergy Anaphylaxis Verified 12/05/22 09:08 Antibiotics) triamcinolone Allergy Rash/Hives Verified 12/05/22 09:08 fentanyl AdvReac Severe SEVERE Verified 12/05/22 09:08 MIGRAINES adhesive AdvReac tears skin Verified 12/05/22 09:08 chocolate flavor AdvReac TRIGGERS Verified 12/05/22 09:08 MIGRAINE duloxetine [From Cymbalta] AdvReac Headaches Verified 12/05/22 09:08 gabapentin AdvReac Confusion Verified 12/05/22 09:08 Opioids - Morphine Analogues AdvReac Migraine Verified 12/05/22 09:08 Opioids-Meperidine and AdvReac Migraine Verified 12/05/22 09:08 Related peanut AdvReac TRIGGERS Verified 12/05/22 09:08 MIGRAINES tree nut [Nut] AdvReac HEADACHE Verified 12/05/22 09:08 yellow dye AdvReac HEADACHE Verified 12/05/22 09:08 Review of Systems ROS Other: All systems not noted in ROS Statement are negative. <Jordan Garcia - Last Filed: 02/11/23 18:49> ROS Other: All systems not noted in ROS Statement are negative. <Julius Magallon - Last Filed: 02/11/23 20:22> ROS Statement: Those systems with pertinent positive or pertinent negative responses have been documented in the HPI. EKG Findings - EKG Comments: EKG Findings:: EKG performed at 18:10 sinus rhythm with rate of 72 HI 144 QRS 124 QT/QTC 392/416 - EKG Results: EKG: interpreted by ERMD <Julius Magallon - Last Filed: 02/11/23 20:22> Past Medical History Past Medical History: Cancer, Chest Pain / Angina, COPD, Osteoarthritis (OA) Additional Past Medical History / Comment(s): Difficulty swallowing. Hx bladder cancer 15 yrs ago, hx right testicular cancer - surgery & radiation 20+ yrs ago, occassional migraines, , hx gastritis, ulcer with last scope. 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 "Broken heart syndrome. after having covid was on meds for 6 mos and had cardiac cath per and no issues since" Lower back stimulator. encapsulated prostate being watched, Last Myocardial Infarction Date:: 05/25/14 History of Any Multi-Drug Resistant Organisms: None Reported Past Surgical History: Adenoidectomy, Appendectomy, Back Surgery, Bowel Resection, Cholecystectomy, Heart Catheterization, Hernia Repair, Orthopedic Surgery, Tonsillectomy Additional Past Surgical History / Comment(s): EGD/colonoscopy, cardiac cathetrization X2, several back surgeries including laminectomy, spinous process removed T11 and T12/cage/arturo, bilateral arthroscopic knee surgeries, bilateral thumb surgeries with right titanium joint, left rotator cuff repair, several nasal polypectomies, pain procedures - RFA cervical/back, bilateral inguinal hernia repairs, right orchiectomy, diaphragmatic hernia repair, section of sigmoid colon removed, back stimulator put in left hip for back pain at [facility], right hand surgery. Past Anesthesia/Blood Transfusion Reactions: No Reported Reaction Past Psychological History: No Psychological Hx Reported Smoking Status: Former smoker Past Alcohol Use History: None Reported Past Drug Use History: None Reported - Past Family History Father Family Medical History: Cancer Additional Family Medical History / Comment(s): Father of stomach cancer at the age of 65 yrs. Mother Family Medical History: No Reported History Additional Family Medical History / Comment(s): Mother of "old age". She was 83 yrs old. Brother(s) Family Medical History: Cancer, Diabetes Mellitus Additional Family Medical History / Comment(s): Brain tumor. Sister(s) Family Medical History: Cancer, Diabetes Mellitus Additional Family Medical History / Comment(s): Sisters breast cancer. <Jordan Garcia - Last Filed: 02/11/23 18:49> General Exam Limitations: no limitations <Jordan Garcia - Last Filed: 02/11/23 18:49> Limitations: no limitations General appearance: alert, in no apparent distress Head exam: Present: atraumatic, normocephalic, normal inspection Eye exam: Present: normal appearance, PERRL, EOMI. Absent: scleral icterus, conjunctival injection, periorbital swelling ENT exam: Present: normal exam, normal oropharynx, mucous membranes moist Neck exam: Present: normal inspection. Absent: tenderness, meningismus, lymphadenopathy Respiratory exam: Present: normal lung sounds bilaterally. Absent: respiratory distress, wheezes, rales, rhonchi, stridor Cardiovascular Exam: Present: regular rate, normal rhythm, normal heart sounds. Absent: systolic murmur, diastolic murmur, rubs, gallop, clicks GI/Abdominal exam: Present: soft, normal bowel sounds. Absent: distended, tenderness, guarding, rebound, rigid <Julius Magallon - Last Filed: 02/11/23 20:22> - General Exam Comments Initial Comments: Visual Physical Exam Vital signs reviewed General: Well-appearing, nontoxic, no acute distress. Head: Normocephalic, atraumatic Eyes: PERRLA, EOMI ENT: Airway patent Chest: Nonlabored breathing Skin: No visual rash, normal skin tone Neuro: Alert and oriented 3 Musculoskeletal: No gross abnormalities (Jordan Garcia) Course Vital Signs 02/11/23 02/11/23 02/11/23 17:59 19:32 19:45 Temperature 98.0 F Pulse Rate 78 72 73 Respiratory 18 16 18 Rate Blood Pressure 167/89 189/109 189/109 O2 Sat by Pulse 92 L 94 L Oximetry 02/11/23 20:00 Temperature Pulse Rate 75 Respiratory 18 Rate Blood Pressure 172/104 O2 Sat by Pulse 93 L Oximetry Chest Pain MDM <Jordan Garcia - Last Filed: 02/11/23 18:49> <Julius Magallon - Last Filed: 02/11/23 20:22> - MDM Quicknote portion performed. Signed Jordan Garcia PA-C (Jordan Garcia) Was pt. sent in by a medical professional or institution (, PA, NURSE INSTRUCTOR, urgent care, hospital, or half-way...) When possible be specific @ -No Did you speak to anyone other than the patient for history (EMS, parent, family, police, friend...)? What history was obtained from this source @ -Physical Fitness Teacher Did you review nursing and triage notes (agree or disagree)? Why? @ -I reviewed and agree with nursing and triage notes Were old charts reviewed (outside hosp., previous admission, EMS record, old EKG, old radiological studies, urgent care reports/EKG's, half-way records)? Report findings @ -Reviewed prior laboratory studies Differential Diagnosis (chest pain, altered mental status, abdominal pain women, abdominal pain men, vaginal bleeding, weakness, fever, dyspnea, syncope, headache, dizziness, GI bleed, back pain, seizure, CVA, palpatations, mental health, musculoskeletal)? @ -Differential Chest Pain: Stable Angina, Unstable Angina, STEMI, NSTEMI Aortic Dissection, Pneumothorax, Musculoskeletal, Esophageal Spasm GERD, Cholecystitis, Pancreatitis, Zoster, this is not meant to be an all-inclusive list. able EKG interpreted by me (3pts min.). @ -As above X-rays interpreted by me (1pt min.). @ -Chest x-ray shows no acute process chronic changes CT interpreted by me (1pt min.). @ -None done U/S interpreted by me (1pt. min.). @ -None done What testing was considered but not performed or refused? (CT, X-rays, U/S, labs)? Why? @ -None What meds were considered but not given or refused? Why? @ -None Did you discuss the management of the patient with other professionals (professionals i.e. , PA, NURSE INSTRUCTOR, lab, RT, psych nurse, social services specialist, flotation tender helper, teacher, morals squad police officer, case management specialist)? Give summary @ - for admission for cardiac rule out Was smoking cessation discussed for >3mins.? @ -No Was critical care preformed (if so, how long)? @ -No Were there social determinants of health that impacted care today? How? (Homelessness, low income, unemployed, alcoholism, drug addiction, transportation, low edu. Level, literacy, decrease access to med. care, intermediate, rehab)? @ -No Was there de-escalation of care discussed even if they declined (Discuss DNR or withdrawal of care, Hospice)? DNR status @ -No What co-morbidities impacted this encounter? (DM, HTN, Smoking, COPD, CAD, Cancer, CVA, ARF, Chemo, Hep., AIDS, mental health diagnosis, sleep apnea, morbid obesity)? @ -[COPD Was patient admitted / discharged? Hospital course, mention meds given and route, prescriptions, significant lab abnormalities, going to OR and other pertinent info. @ -[Admitted patient will be admitted for cardiac rule out repeat troponin, cardiology evaluation. Undiagnosed new problem with uncertain prognosis? @ -No Drug Therapy requiring intensive monitoring for toxicity (Heparin, Nitro, Insulin, Cardizem)? @ -No Were any procedures done? @ -No Diagnosis/symptom? @ -[Chest pain Acute, or Chronic, or Acute on Chronic? @ -Acute Uncomplicated (without systemic symptoms) or Complicated (systemic symptoms)? @ -[complicated Side effects of treatment? @ -No Exacerbation, Progression, or Severe Exacerbation? @ -No Poses a threat to life or bodily function? How? (Chest pain, [place], [place], pneumonia, PE, COPD, DKA, ARF, appy, cholecystitis, CVA, Diverticulitis, Homicidal, Suicidal, threat to staff... and all critical care pts) @ -yes possible acs (Julius Magallon) Disposition <Jordan Garcia - Last Filed: 02/11/23 18:49> Time of Disposition: 20:01 <Julius Magallon - Last Filed: 02/11/23 20:22> Clinical Impression: Chest pain Disposition: ADMITTED IP TO THIS HOSP Condition: Fair Referrals: Lul Garcia MD [Primary Care Provider] - 1-2 days
[2023-02-11 19:02] LABS: ALT 24 U/L (4-49); AST 27 U/L (17-59); African American GFR (CKD) >90 (>60 ml/min/1.73 sqM); Albumin 4.1 g/dL (3.5-5.0); Alkaline Phosphatase 86 U/L (38-126); Anion Gap 10 mmol/L; Blood Urea Nitrogen 20 mg/dL (9-20); Calcium 9.5 mg/dL (8.4-10.2); Carbon Dioxide 27 mmol/L (22-30); Chloride 100 mmol/L (98-107); Glucose 98 mg/dL (74-99); Magnesium 1.9 mg/dL (1.6-2.3); Non-African American GFR(CKD) 89 (>60 ml/min/1.73 sqM); Sodium 137 mmol/L (137-145); Total Bilirubin 0.5 mg/dL (0.2-1.3); Total Protein 6.7 g/dL (6.3-8.2)
[2023-02-11] MEDS ORDERED: NITROGLYCERIN OINT 1 INCH/GM PACKET TOPICAL STA (19:16)
[2023-02-11 20:03] LABS: INR 0.9 (<1.2); Partial Thromboplastin Time 24.7 sec (22.0-30.0)
[2023-02-11] MEDS ORDERED: NITROGLYCERIN SL TABS 0.4 MG TAB SUBLINGUAL PRN (20:20)
[2023-02-11 21:54] VITALS: RESP 16
[2023-02-11] MEDS ORDERED: ACETAMINOPHEN TAB 325 MG TAB PO PRN (22:38)
[2023-02-12] MEDS ORDERED: ALPRAZolam 0.5 MG TAB PO PRN (08:23)
[2023-02-12] MEDS ORDERED: ALPRAZolam 0.25 MG TAB PO PRN (08:23)
[2023-02-12] MEDS ORDERED: ASPIRIN 325 MG TAB PO STA (08:23)
[2023-02-12] MEDS ORDERED: ATORVASTATIN 80 MG TAB PO STA (08:23)
[2023-02-12] MEDS ORDERED: NITROGLYCERIN SL TABS 0.4 MG TAB SUBLINGUAL PRN (08:23)
[2023-02-12] MEDS ORDERED: EMPTY BAG 1 BAG with SODIUM CHLORIDE 0.9% 1,000 ML IV ONE (08:58)
--- NOTE | 2023-02-12 08:59 | P.HPIM ---
History of Present Illness H&P Date: 02/12/23 Chief Complaint: Chest Pain This is a 77-year-old male presented to the emergency department with complaints of chest pain. Patient has been having some chest pain on and off for the last 2 days. He had taken a total of 3 nitro throughout the day yesterday with little relief. Patient reports pain started going down his left arm and had some numbness in the hand, so he presented to the emergency department. Prior to yesterday, patient had taken 2 nitro the day before. Cardiology has been consulted and are planning for a heart catheterization. He is seen sitting up in bed this morning. He denies any further chest pains at this time, report he eats he was given Nitropaste in the ER and took the pain away. Further medical history as noted below. Review of Systems Constitutional: Denies chills, Denies fever Cardiovascular: Reports chest pain, Denies dyspnea on exertion Respiratory: Denies cough, Denies dyspnea Gastrointestinal: Denies nausea, Denies vomiting Musculoskeletal: Reports arm numbness/tingling, Denies leg numbness/tingling Neurological: Denies headaches, Denies weakness Past Medical History Past Medical History: Cancer, Chest Pain / Angina, COPD, Osteoarthritis (OA) Additional Past Medical History / Comment(s): Difficulty swallowing. Hx bladder cancer 15 yrs ago, hx right testicular cancer - surgery & radiation 20+ yrs ago, occassional migraines, , hx gastritis, ulcer with last scope. 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 "Broken heart syndrome. after having covid was on meds for 6 mos and had cardiac cath per and no issues since" Lower back stimulator. encapsulated prostate being watched, Last Myocardial Infarction Date:: 05/25/14 History of Any Multi-Drug Resistant Organisms: None Reported Past Surgical History: Adenoidectomy, Appendectomy, Back Surgery, Bowel Resection, Cholecystectomy, Heart Catheterization, Hernia Repair, Orthopedic Surgery, Tonsillectomy Additional Past Surgical History / Comment(s): EGD/colonoscopy, cardiac cathetrization X2, several back surgeries including laminectomy, spinous process removed T11 and T12/cage/arturo, bilateral arthroscopic knee surgeries, bilateral thumb surgeries with right titanium joint, left rotator cuff repair, several nasal polypectomies, pain procedures - RFA cervical/back, bilateral inguinal hernia repairs, right orchiectomy, diaphragmatic hernia repair, section of sigmoid colon removed, back stimulator put in left hip for back pain at [facility], right hand surgery. Past Anesthesia/Blood Transfusion Reactions: No Reported Reaction Past Psychological History: No Psychological Hx Reported Additional Psychological History / Comment(s): Patient resides with his spouse of 57 yrs. He has chronic pain and debilitating migraines. He has a cane and walker which he uses prn. He has falls. Smoking Status: Former smoker Past Alcohol Use History: None Reported Additional Past Alcohol Use History / Comment(s): Started smoking in 1959 and quit in 2003, smoked 1 1/2ppd. Past Drug Use History: None Reported - Past Family History Father Family Medical History: Cancer Additional Family Medical History / Comment(s): Father of stomach cancer at the age of 65 yrs. Mother Family Medical History: No Reported History Additional Family Medical History / Comment(s): Mother of "old age". She was 83 yrs old. Brother(s) Family Medical History: Cancer, Diabetes Mellitus Additional Family Medical History / Comment(s): Brain tumor. Sister(s) Family Medical History: Cancer, Diabetes Mellitus Additional Family Medical History / Comment(s): Sisters breast cancer. Medications and Allergies Home Medications Medication Instructions Recorded Confirmed Type Albuterol Nebulized [Ventolin 2.5 mg INHALATION RT-QID PRN 08/16/21 02/11/23 History Nebulized] Nitroglycerin Sl Tabs [Nitrostat] 0.4 mg SL Q5M PRN 08/16/21 02/11/23 History Fluticasone/Umeclidin/Vilanter 1 puff INHALATION RT-DAILY 03/20/22 02/11/23 History [Trelegy Ellipta 200-62.5-25] Sucralfate [Carafate] 1 gm PO TID #120 tablet 12/05/22 02/11/23 Rx Albuterol Nebulized [Ventolin 2.5 mg INHALATION RT-DAILY 02/11/23 02/11/23 History Nebulized] Omeprazole 20 mg PO DAILY 02/11/23 02/11/23 History hydrOXYzine HCL [Atarax] 10 mg PO DAILY PRN 02/11/23 02/11/23 History Allergies Allergy/AdvReac Type Severity Reaction Status Date / Time banana Allergy Migraine Verified 02/11/23 21:15 celecoxib [From Celebrex] Allergy Rash/Hives Verified 02/11/23 21:15 Iodinated Contrast Media Allergy Anaphylaxis Verified 02/11/23 21:15 [Iodinated Contrast Media - IV Dye] iodine Allergy Anaphylaxis Verified 02/11/23 21:15 nystatin Allergy Rash/Hives, Verified 02/11/23 21:15 Swelling, Difficulty breathing Penicillins Allergy Anaphylaxis Verified 02/11/23 21:15 Sulfa (Sulfonamide Allergy See comment Verified 02/11/23 21:15 Antibiotics) triamcinolone Allergy Rash/Hives Verified 02/11/23 21:15 fentanyl AdvReac Severe SEVERE Verified 02/11/23 21:15 MIGRAINES adhesive AdvReac tears skin Verified 02/11/23 21:15 chocolate flavor AdvReac TRIGGERS Verified 02/11/23 21:15 MIGRAINE duloxetine [From Cymbalta] AdvReac Headaches Verified 02/11/23 21:15 gabapentin AdvReac Confusion Verified 02/11/23 21:15 Opioids - Morphine Analogues AdvReac Migraine Verified 02/11/23 21:15 Opioids-Meperidine and AdvReac Migraine Verified 02/11/23 21:15 Related peanut AdvReac TRIGGERS Verified 02/11/23 21:15 MIGRAINES tree nut [Nut] AdvReac HEADACHE Verified 02/11/23 21:15 yellow dye AdvReac HEADACHE Verified 02/11/23 21:15 Physical Exam Vitals: Vital Signs Temp Pulse Pulse Resp BP BP Pulse Ox 02/12/23 07:00 97.6 F 66 16 162/84 93 L 02/12/23 02:00 97.6 F 62 16 166/91 93 L 02/11/23 22:17 97.9 F 73 16 170/84 94 L 02/11/23 21:45 82 16 163/105 93 L 02/11/23 21:30 81 17 132/109 94 L 02/11/23 21:15 82 17 164/101 94 L 02/11/23 21:00 80 17 160/104 93 L 02/11/23 20:30 77 17 163/99 92 L 02/11/23 20:15 78 14 164/104 92 L 02/11/23 20:00 75 18 172/104 93 L 02/11/23 19:45 73 18 189/109 94 L 02/11/23 19:32 72 16 189/109 02/11/23 17:59 98.0 F 78 18 167/89 92 L Intake and Output 02/11/23 02/12/23 02/12/23 22:59 06:59 14:59 Other: # Voids 1 Weight 61.235 kg - Constitutional General appearance: cooperative, no acute distress - EENT Eyes: PERRLA - Neck Neck: no lymphadenopathy, normal ROM, no rigidity - Cardiovascular Rhythm: regular Heart sounds: normal: S1, S2 - Gastrointestinal General gastrointestinal: soft, no tenderness - Integumentary Integumentary: normal, normal turgor - Psychiatric Psychiatric: A&O x's 3, appropriate affect, intact judgment & insight Results CBC & Chem 7: 02/11/23 18:33 02/11/23 18:33 Thrombosis Risk Factor Assmnt - Choose All That Apply Each Risk Factor Represents 3 Points: Age 75 years or older Thrombosis Risk Factor Assessment Total Risk Factor Score: 3 Thrombosis Risk Factor Assessment Level: Moderate Risk Assessment and Plan (1) Chest pain Current Visit: Yes Status: Acute Code(s): R07.9 - CHEST PAIN, UNSPECIFIED SNOMED Code(s): 27713883 (2) COPD (chronic obstructive pulmonary disease) Current Visit: No Status: Acute Code(s): J44.9 - CHRONIC OBSTRUCTIVE PU LMONARY DISEASE, UNSPECIFIED SNOMED Code(s): 68752167 (3) Hypertension Current Visit: No Status: Acute Code(s): I10 - ESSENTIAL (PRIMARY) HYPERTENSION SNOMED Code(s): 73985944 Plan: Appreciate cardiology input. Await results of heart catheterization. Patient seen and evaluated by nurse practitioner, physician in agreement with plan
[2023-02-12] MEDS ORDERED: ASPIRIN 325 MG TAB PO SCH (09:00)
[2023-02-12] MEDS ORDERED: LOSARTAN 25 MG TAB PO SCH (09:00)
[2023-02-12] MEDS ORDERED: ASPIRIN 81 MG PO SCH (09:00)
[2023-02-12 09:02] LABS: Chol/HDL Ratio 2.42 Ratio; LDL Cholesterol,Calculated 65.2 mg/dL (0.0-131.0); VLDL Calculation 10.64 mg/dL (5.00-40.00)
--- NOTE | 2023-02-12 10:02 | P.CRDCN ---
History of Present Illness History of present illness: HISTORY OF PRESENT ILLNESS: This is a 77-year-old male with a past medical history significant for nonischemic cardiomyopathy with recovered EF, COPD, hiatal hernia, Diego's palsy, and esophageal strictures requiring frequent dilation. Patient follows in the office with Dr. Cain. We have been asked to see the patient in consultation for chest pain. Patient examined at the bedside. Patient states he has been having chest pain for the past few months. He states initially he thought this was pulmonary related but he states he saw his speech lang path and was told it was not related to his lungs. He states he began to have more chest pain over the past few days. He states the pain is worse with exertion. He also reports getting short of breath with exertion. He reports that the pain radiates into his left arm. He reports taking nitro over the past few days with relief of his chest pain. At the time of examination, he denies chest pain or pressure. He denies shortness of breath. He reports that his chest feels sore this morning. * EKG reveals sinus mechanism with right bundle branch block. No signs of acute ischemia. * Chest xray opacification left lower lobe. Correlate for pneumonia or mass. * Laboratory data: Troponin negative 3 * Current home cardiac medications include nitro sublingual tabs as needed * Most recent echocardiogram obtained in March 2021 revealed ejection fraction 50-55%, mild aortic regurgitation, mild mitral regurgitation, and mild tricuspid regurgitation * Previous echocardiogram in July 2021 revealed ejection fraction 35-40% * Cardiac catheterization history: February 2021 revealing minimal CAD REVIEW OF SYSTEMS: At the time of my exam: CONSTITUTIONAL: Denies fever or chills. HEENT: Denies blurred vision, vision changes, or eye pain. Denies hemoptysis CARDIOVASCULAR: Denies chest pain. Denies orthopnea. Denies PND. Denies palpitations RESPIRATORY: Denies shortness of breath. GASTROINTESTINAL: Denies abdominal pain. Denies nausea or vomiting. HEMATOLOGIC: Denies bleeding disorders. GENITOURINARY: Denies any blood in urine. SKIN: Denies pruitis. Denies rash. PHYSICAL EXAM: VITAL SIGNS: Reviewed. GENERAL: Well-developed in no acute distress. HEENT: Head is normocephalic. Pupils are equal, round. Sclerae anicteric. Mucous membranes of the mouth are moist. Neck supple. No JVD or thyromegaly LUNGS: Respirations even and unlabored. Lungs essentially clear to auscultation bilaterally. HEART: Regular rate and rhythm. S1 and S2 heard. ABDOMEN: Soft. Nondistended. Nontender. EXTREMITIES: Normal range of motion. No clubbing or cyanosis. Peripheral pulses intact. No lower extremity edema NEUROLOGIC: Awake and alert. Oriented x 3. ASSESSMENT: Chest pain History of nonischemic cardiomyopathy with recovered EF Hypertension COPD History of hiatal hernia History of Diego's palsy History of esophageal stricture requiring frequent dilation PLAN: Decrease aspirin to 81 mg daily Add losartan 25 mg daily for optimal blood pressure control Patient to undergo cardiac catheterization today with Dr. Cain. Further recommendations pending patient's course Nurse practitioner note has been reviewed by physician. Signing provider agrees with the documented findings, assessment, and plan of care. Past Medical History Past Medical History: Cancer, Chest Pain / Angina, COPD, Osteoarthritis (OA) Additional Past Medical History / Comment(s): Difficulty swallowing. Hx bladder cancer 15 yrs ago, hx right testicular cancer - surgery & radiation 20+ yrs ago, occassional migraines, , hx gastritis, ulcer with last scope. 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 "Broken heart syndrome. after having covid was on meds for 6 mos and had cardiac cath per and no issues since" Lower back stimulator. encapsulated prostate being watched, Last Myocardial Infarction Date:: 05/25/14 History of Any Multi-Drug Resistant Organisms: None Reported Past Surgical History: Adenoidectomy, Appendectomy, Back Surgery, Bowel Resection, Cholecystectomy, Heart Catheterization, Hernia Repair, Orthopedic Surgery, Tonsillectomy Additional Past Surgical History / Comment(s): EGD/colonoscopy, cardiac cathetrization X2, several back surgeries including laminectomy, spinous process removed T11 and T12/cage/arturo, bilateral arthroscopic knee surgeries, bilateral thumb surgeries with right titanium joint, left rotator cuff repair, several nasal polypectomies, pain procedures - RFA cervical/back, bilateral inguinal hernia repairs, right orchiectomy, diaphragmatic hernia repair, section of sigmoid colon removed, back stimulator put in left hip for back pain at [facility], right hand surgery. Past Anesthesia/Blood Transfusion Reactions: No Reported Reaction Past Psychological History: No Psychological Hx Reported Additional Psychological History / Comment(s): Patient resides with his spouse of 57 yrs. He has chronic pain and debilitating migraines. He has a cane and walker which he uses prn. He has falls. Smoking Status: Former smoker Past Alcohol Use History: None Reported Additional Past Alcohol Use History / Comment(s): Started smoking in 1959 and quit in 2003, smoked 1 1/2ppd. Past Drug Use History: None Reported - Past Family History Father Family Medical History: Cancer Additional Family Medical History / Comment(s): Father of stomach cancer at the age of 65 yrs. Mother Family Medical History: No Reported History Additional Family Medical History / Comment(s): Mother of "old age". She was 83 yrs old. Brother(s) Family Medical History: Cancer, Diabetes Mellitus Additional Family Medical History / Comment(s): Brain tumor. Sister(s) Family Medical History: Cancer, Diabetes Mellitus Additional Family Medical History / Comment(s): Sisters breast cancer. Medications and Allergies Home Medications Medication Instructions Recorded Confirmed Type Albuterol Nebulized [Ventolin 2.5 mg INHALATION RT-QID PRN 08/16/21 02/11/23 History Nebulized] Nitroglycerin Sl Tabs [Nitrostat] 0.4 mg SL Q5M PRN 08/16/21 02/11/23 History Fluticasone/Umeclidin/Vilanter 1 puff INHALATION RT-DAILY 03/20/22 02/11/23 History [Trelegy Ellipta 200-62.5-25] Sucralfate [Carafate] 1 gm PO TID #120 tablet 12/05/22 02/11/23 Rx Albuterol Nebulized [Ventolin 2.5 mg INHALATION RT-DAILY 02/11/23 02/11/23 History Nebulized] Omeprazole 20 mg PO DAILY 02/11/23 02/11/23 History hydrOXYzine HCL [Atarax] 10 mg PO DAILY PRN 02/11/23 02/11/23 History Allergies Allergy/AdvReac Type Severity Reaction Status Date / Time banana Allergy Migraine Verified 02/11/23 21:15 celecoxib [From Celebrex] Allergy Rash/Hives Verified 02/11/23 21:15 Iodinated Contrast Media Allergy Anaphylaxis Verified 02/11/23 21:15 [Iodinated Contrast Media - IV Dye] iodine Allergy Anaphylaxis Verified 02/11/23 21:15 nystatin Allergy Rash/Hives, Verified 02/11/23 21:15 Swelling, Difficulty breathing Penicillins Allergy Anaphylaxis Verified 02/11/23 21:15 Sulfa (Sulfonamide Allergy See comment Verified 02/11/23 21:15 Antibiotics) triamcinolone Allergy Rash/Hives Verified 02/11/23 21:15 fentanyl AdvReac Severe SEVERE Verified 02/11/23 21:15 MIGRAINES adhesive AdvReac tears skin Verified 02/11/23 21:15 chocolate flavor AdvReac TRIGGERS Verified 02/11/23 21:15 MIGRAINE duloxetine [From Cymbalta] AdvReac Headaches Verified 02/11/23 21:15 gabapentin AdvReac Confusion Verified 02/11/23 21:15 Opioids - Morphine Analogues AdvReac Migraine Verified 02/11/23 21:15 Opioids-Meperidine and AdvReac Migraine Verified 02/11/23 21:15 Related peanut AdvReac TRIGGERS Verified 02/11/23 21:15 MIGRAINES tree nut [Nut] AdvReac HEADACHE Verified 02/11/23 21:15 yellow dye AdvReac HEADACHE Verified 02/11/23 21:15 Physical Exam Vitals: Vital Signs Temp Pulse Pulse Resp BP BP Pulse Ox 02/12/23 07:00 97.6 F 66 16 162/84 93 L 02/12/23 02:00 97.6 F 62 16 166/91 93 L 02/11/23 22:17 97.9 F 73 16 170/84 94 L 02/11/23 21:45 82 16 163/105 93 L 02/11/23 21:30 81 17 132/109 94 L 02/11/23 21:15 82 17 164/101 94 L 02/11/23 21:00 80 17 160/104 93 L 02/11/23 20:30 77 17 163/99 92 L 02/11/23 20:15 78 14 164/104 92 L 02/11/23 20:00 75 18 172/104 93 L 02/11/23 19:45 73 18 189/109 94 L 02/11/23 19:32 72 16 189/109 02/11/23 17:59 98.0 F 78 18 167/89 92 L Intake and Output 12/18/23 12/19/23 12/19/23 22:59 06:59 14:59 Other: # Voids 1 Weight 61.235 kg Results 02/11/23 18:33 02/11/23 18:33 Cardiac Enzymes 02/11/23 02/11/23 02/11/23 Range/Units 18:33 18:33 21:28 AST 27 (17-59) U/L Troponin I <0.012 <0.012 (0.000-0.034) ng/mL 02/12/23 Range/Units 00:48 AST (17-59) U/L Troponin I <0.012 (0.000-0.034) ng/mL Coagulation 02/11/23 Range/Units 19:15 PT 10.0 (10.0-12.5) sec APTT 24.7 (22.0-30.0) sec Lipids 02/12/23 Range/Units 06:10 Triglycerides 53.20 (0.00-149.00) mg/dL Cholesterol 129.00 (0.00-200.00) mg/dL HDL Cholesterol 53.20 (40.00-60.00) mg/dL Cholesterol/HDL Ratio 2.42 Ratio CBC 02/11/23 Range/Units 18:33 WBC 8.2 (3.8-10.6) k/uL RBC 4.67 (4.30-5.90) m/uL Hgb 14.9 (13.0-17.5) gm/dL Hct 44.9 (39.0-53.0) % Plt Count 244 (150-450) k/uL Comprehensive Metabolic Panel 02/11/23 Range/Units 18:33 Sodium 137 (137-145) mmol/L Potassium 4.0 (3.5-5.1) mmol/L Chloride 100 (98-107) mmol/L Carbon Dioxide 27 (22-30) mmol/L BUN 20 (9-20) mg/dL Creatinine 0.75 (0.66-1.25) mg/dL Glucose 98 (74-99) mg/dL Calcium 9.5 (8.4-10.2) mg/dL AST 27 (17-59) U/L ALT 24 (4-49) U/L Alkaline Phosphatase 86 (38-126) U/L Total Protein 6.7 (6.3-8.2) g/dL Albumin 4.1 (3.5-5.0) g/dL Current Medications Generic Name Dose Route Start Last Admin Trade Name Nicole PRN Reason Stop Dose Admin Acetaminophen 325 mg 02/11/23 22:38 02/11/23 22:48 Acetaminophen Tab 325 Mg Tab PO 325 mg Q6HR PRN Administration Fever and/ or Pain Alprazolam 0.25 mg 02/12/23 08:23 Alprazolam 0.25 Mg Tab PO Q6HR PRN Mild Anxiety Alprazolam 0.5 mg 02/12/23 08:23 Alprazolam 0.5 Mg Tab PO Q6HR PRN Moderate Anxiety Aspirin 81 mg 02/12/23 09:00 02/12/23 08:44 Aspirin 81 Mg PO Not Given DAILY AMEE Heparin Sodium (Porcine) 10, 1,001 mls @ 999 mls/hr 02/13/23 07:00 000 unit/ Sodium Chloride IRRIGATION 02/13/23 23:00 ONCE PRN INTRA-OP Heparin Sodium (Porcine) 2,500 250.5 mls @ 250 mls/hr 02/13/23 07:00 unit/ Sodium Chloride IRRIGATION 02/13/23 23:00 ONCE PRN INTRA-OP Sodium Chloride 1,000 ml/ IV 1,000 mls @ 61.235 mls/hr 02/12/23 08:58 02/12/23 09:27 Solution IV 02/13/23 01:17 61.235 mls/hr .[id number] ONE Administration 1 ML/KG/HR Losartan Potassium 25 mg 02/12/23 09:00 02/12/23 08:43 Losartan 25 Mg Tab PO 25 mg DAILY AMEE Administration Nitroglycerin 0.4 mg 02/11/23 20:20 Nitroglycerin Sl Tabs 0.4 Mg Tab SUBLINGUAL Q5M PRN Chest Pain Nitroglycerin 0.4 mg 02/12/23 08:23 Nitroglycerin Sl Tabs 0.4 Mg Tab SUBLINGUAL Q5M PRN Chest Pain Intake and Output 02/11/23 02/12/23 02/12/23 22:59 06:59 14:59 Other: # Voids 1 Weight 61.235 kg 02/11/23 18:33 02/11/23 18:33
[2023-02-12] MEDS ORDERED: PANTOPRAZOLE 40 MG TABLET PO SCH (11:30)
[2023-02-12] MEDS ORDERED: ALBUTEROL NEBULIZED 2.5 MG/3 ML INHALATION PRN (12:03)
[2023-02-12 14:28] VITALS: TEMP 97.7
[2023-02-12] MEDS ORDERED: methylPREDNISolone SOD SUCCI 125 MG/2 ML VIAL IV ONE (15:10)
[2023-02-12] MEDS ORDERED: diphenhydrAMINE 50 MG/ML 1 ML VIAL IVP ONE (15:10)
[2023-02-12] MEDS ORDERED: fentaNYL (PF) 50 MCG/ML 2 ML AMP ONE (15:12)
[2023-02-12] MEDS ORDERED: MIDAZOLAM 2 MG/2 ML VIAL IVP ONE (15:15)
[2023-02-12] MEDS ORDERED: VERAPAMIL 2.5 MG/ML 2 ML AMP ONE (15:15)
[2023-02-12] MEDS ORDERED: LIDOCAINE 1% INJ 10MG/ML (20 ML MDV) ONE (15:15)
[2023-02-12] MEDS ORDERED: LIDOCAINE 1% INJ 10MG/ML (30 ML VIAL-PF) SQ ONE (15:15)
[2023-02-12] MEDS ORDERED: VERAPAMIL SYRINGE (5 MG/10 ML) INTRAARTER ONE (15:16)
[2023-02-12] MEDS ORDERED: fentaNYL (PF) 50 MCG/1 ML VIAL IVP ONE (15:16)
[2023-02-12] MEDS ORDERED: IOPAMIDOL-370 100ML BTL INJ ONE (15:37)
[2023-02-12] MEDS ORDERED: IV FLUID CONTINUATION 800 ML IV ONE (15:37)
[2023-02-12] MEDS ORDERED: RX INFO: IV CONTRAST WAS GIVEN 1 EACH MISC MISCELLANE PRN (15:49)
--- NOTE | 2023-02-12 15:49 | P.CARDCATH ---
Description of Procedure: PROCEDURES PERFORMED: Left heart catheterization, bilateral coronary angiography, ultrasound guided arterial access, left ventriculogram INDICATION: Unstable angina CONSENT:I have discussed the risks, benefits and alternative therapies for the above-mentioned procedure and for both sedation/analgesia as well as necessary blood product administration, if indicated, as they pertain to this patient. The patient has indicated understanding and acceptance of the risks and procedures discussed. PROCEDURE: After the risks, benefits and alternatives of the above mentioned procedure explained in detail with the patient, informed consent was obtained. Patient was taken to the catheterization lab and prepped and draped in usual fas hion. Ultrasound guidance was used to assess for arterial access. 1% lidocaine was used to anesthetize the right radial artery. A 6-Israeli sheath was placed in the right radial artery using modified Seldinger technique and ultrasound guidance. Left coronary angiography was performed with a 5-Israeli JL 3.5 catheter and right coronary angiography was performed with a 5-Israeli AR2 catheter in various views. A 5-Israeli AR2 catheter was inserted into the left ventricle and pressure measurements were obtained. A left ventriculogram was performed in the BOYER projection with power injection with a 6-Israeli pigtail catheter. The right radial sheath was removed and a TR band was placed with hemostasis achieved. The patient tolerated the procedure well. Patient was transported back to the post catheterization holding area in stable condition. Conscious Sedation: Patient was monitored under the direct supervision of myself for conscious sedation using Versed and fentanyl for a total duration of 25 minutes HEMODYNAMICS: A: 178/90 LV: 175/5, LVEDP 14 SELECTIVE CORONARY ARTERIOGRAPHY: LEFT MAIN: The left main is a large caliber vessel which bifurcates into the LAD and circumflex. There is no significant stenosis. LEFT ANTERIOR DESCENDING CORONARY ARTERY: LAD is a large caliber vessel which wraps around to the apex. There is mild mid LAD 10% stenosis and otherwise normal LEFT CIRCUMFLEX CORONARY ARTERY: Left circumflex is a moderate caliber vessel without significant stenosis. RIGHT CORONARY ARTERY: The right coronary artery is a large caliber vessel which gives off a PDA and PLV branch and is the dominant vessel. There is a mid RCA 20% stenosis. There is a mildly aneurysmal proximal to mid RCA portion however appears similar to prior imaging. There is SHON 2 flow noted to the distal PDA. FINAL IMPRESSION: 1. Relatively normal coronary arteries other than mid LAD 10%, mid RCA 20% stenosis and mildly aneurysmal proximal and mid RCA 2. Normal left sided filling pressures 3. Normal left ventricular EF 60-65% 4. SHON 2 flow noted of RCA PLAN: 1. Aggressive risk factor modification per most recent ACC/AHA guidelines. 2. There is some slower flow noted to the PDA may be consistent with microvascular disease. Aneurysmal portion appears similar to prior imaging and does not appear typical of any dissection. Treat for microvascular disease with addition of Ranexa.
[2023-02-12] MEDS ORDERED: SUCRALFATE 1 GM TAB PO SCH (16:00)
[2023-02-12] MEDS ORDERED: SODIUM CHLORIDE 0.9% 1,000 ML IV SCH (16:00)
--- NOTE | 2023-02-12 19:51 | P.DS ---
Providers Date of admission: 02/11/23 20:21 Attending physician: Lul Garcia Consults: 02/11/23 20:20 Consult Physician Urgent Consulting Provider: David Middleton Consult Reason/Comments: chest pain Do you want consulting provider notified?: Yes Primary care physician: Llu Garcia [facility] Course: Angina, which caused cardiac catheterization. Work up was negative. Ranexa was started by cardiology. The patient has been cleared by cardiology. We will followup with him in 3-5 days. Patient Condition at Discharge: Fair Plan - Discharge Summary New Discharge Prescriptions: New RX: Ranolazine [Ranexa] 500 mg PO Q12HR #60 tab RX: Aspirin 81 mg PO DAILY #30 tab RX: Losartan [Cozaar] 25 mg PO DAILY #30 tab RX: Nitroglycerin Sl Tabs [Nitrostat] 0.4 mg SUBLINGUAL Q5M PRN tab PRN Reason: Chest Pain RX: Nitroglycerin Sl Tabs [Nitrostat] 0.4 mg SUBLINGUAL Q5M PRN tab PRN Reason: Chest Pain Continue RX: Albuterol Nebulized [Ventolin Nebulized] 2.5 mg INHALATION RT-QID PRN PRN Reason: Shortness Of Breath RX: Sucralfate [Carafate] 1 gm PO TID #120 tablet RX: Albuterol Nebulized [Ventolin Nebulized] 2.5 mg INHALATION RT-DAILY RX: Omeprazole 20 mg PO DAILY RX: Nitroglycerin Sl Tabs [Nitrostat] 0.4 mg SL Q5M PRN PRN Reason: Chest Pain RX: Fluticasone/Umeclidin/Vilanter [Trelegy Ellipta 200-62.5-25] 1 puff INHALATION RT-DAILY RX: hydrOXYzine HCL [Atarax] 10 mg PO DAILY PRN PRN Reason: Itching Discharge Medication List RX: Albuterol Nebulized [Ventolin Nebulized] 2.5 mg INHALATION RT-QID PRN 08/16/21 [History] RX: Nitroglycerin Sl Tabs [Nitrostat] 0.4 mg SL Q5M PRN 08/16/21 [History] RX: Fluticasone/Umeclidin/Vilanter [Trelegy Ellipta 200-62.5-25] 1 puff INHALATION RT-DAILY 03/20/22 [History] RX: Sucralfate [Carafate] 1 gm PO TID #120 tablet 12/05/22 [Rx] RX: Albuterol Nebulized [Ventolin Nebulized] 2.5 mg INHALATION RT-DAILY 02/11/23 [History] RX: Omeprazole 20 mg PO DAILY 02/11/23 [History] RX: hydrOXYzine HCL [Atarax] 10 mg PO DAILY PRN 02/11/23 [History] RX: Aspirin 81 mg PO DAILY #30 tab 02/12/23 [Rx] RX: Losartan [Cozaar] 25 mg PO DAILY #30 tab 02/12/23 [Rx] RX: Nitroglycerin Sl Tabs [Nitrostat] 0.4 mg SUBLINGUAL Q5M PRN tab 02/12/23 [Rx] RX: Nitroglycerin Sl Tabs [Nitrostat] 0.4 mg SUBLINGUAL Q5M PRN tab 02/12/23 [Rx] RX: Ranolazine [Ranexa] 500 mg PO Q12HR #60 tab 02/12/23 [Rx] Follow up Appointment(s)/Referral(s): Lul Garcia MD [Primary Care Provider] - 1-2 days Patient Instructions/Handouts: Chest Pain (DC), After Radial Heart Catheterization (GEN) Activity/Diet/Wound Care/Special Instructions: NO FLEXING AT THE WRIST OR LIFTING ANYTHING HEAVIER THAN 5 POUNDS FOR 5 DAYS REMOVE ANY DRESSING OVER PUNCTURE SITE IN 245 HOURS AND LEAVE OPEN TO AIR DO NOT SUBMERGE WRIST IN WATER FOR 3 DAYS IF ANY NUMBNESS, CHANGE IN COLOR OR TEMP TO HAND RETURN TO DR OR ER IF SITE BLEEDS, HOLD PRESSURE FOR 10 MIN IF DOESN'T SUBSIDE HAVE SOMEONE DRIVE YOU TO EMERGENCY ROOM...DO NOT DRIVE YOURSELF.
[2023-02-12 20:59] VITALS: BP 145/84; PULSE 95
[2023-02-12] MEDS ORDERED: RANOLAZINE 500 MG TAB.ER.12H PO SCH (21:00)
[2023-02-13] MEDS ORDERED: HEPARIN SODIUM,PORCINE 10,000 UNIT in SODIUM CHLORIDE 0.9% 1,000 ML IRRIGATION PRN (07:00)
[2023-02-13] MEDS ORDERED: HEPARIN SODIUM,PORCINE (1 ML) 2,500 UNIT in SODIUM CHLORIDE 0.9% 250 ML IRRIGATION PRN (07:00)
[2023-02-13] MEDS ORDERED: IPRATROPIUM 0.5 MG/2.5 ML NEBU INHALATION SCH (08:00)
[2023-02-13] MEDS ORDERED: SYMBICORT 160-4.5 MCG INHALER INHALATION SCH (08:00)
== END 2023-02-12 20:42 | disposition home or self-care (01) ==
LOC: EC 17:40 → 6NMEDSUR 20:21
PROVIDERS: ADMIT Family Medicine; ATTEND Family Medicine
DX: I25.110 Atherosclerotic heart disease of native coronary artery with unstable angina pectoris (principal); J44.9 Chronic obstructive pulmonary disease, unspecified; M19.90 Unspecified osteoarthritis, unspecified site; I25.2 Old myocardial infarction; G51.0 Bell's palsy; K56.699 Other intestinal obstruction unspecified as to partial versus complete obstruction; K29.70 Gastritis, unspecified, without bleeding; G43.909 Migraine, unspecified, not intractable, without status migrainosus; G89.29 Other chronic pain; I10 Essential (primary) hypertension; I42.8 Other cardiomyopathies; Z85.51 Personal history of malignant neoplasm of bladder; Z85.47 Personal history of malignant neoplasm of testis; Z92.3 Personal history of irradiation; Z86.16 Personal history of COVID-19; Z87.891 Personal history of nicotine dependence; Z90.49 Acquired absence of other specified parts of digestive tract; Z79.899 Other long term (current) drug therapy; Z88.0 Allergy status to penicillin; Z88.2 Allergy status to sulfonamides; Z88.8 Allergy status to other drugs, medicaments and biological substances; Z91.041 Radiographic dye allergy status; Z91.02 Food additives allergy status; Z91.010 Allergy to peanuts; Z80.0 Family history of malignant neoplasm of digestive organs; Z83.3 Family history of diabetes mellitus; Z80.3 Family history of malignant neoplasm of breast
CPT/HCPCS: 99285; 36415; 93005; 93458; 76937; 80061; 80053; 83735; 84484 ×2; 85025; 85610; 85730; 71046; G0378 ×2; C1769 ×3; C1894; J2250; J1200; J2930; J2001; Q9967; J3010

== ENCOUNTER 2023-02-20 10:22 | Day surgery (SDC) | payer MEDICARE ==
--- NOTE | 2023-02-20 07:54 | P.GSHP ---
History of Present Illness H&P Date: 02/20/23 CHIEF COMPLAINT: GERD HISTORY OF PRESENT ILLNESS: The patient is a 77-year-old male who presents reports gastroesophageal reflux disease. Upper endoscopy was offered for further evaluation and management. PAST MEDICAL HISTORY: Please see list. PAST SURGICAL HISTORY: Please see list. MEDICATIONS: Please see list. ALLERGIES: Please see list. SOCIAL HISTORY: No illicit drug use FAMILY HISTORY: No reports of Crohn disease or ulcerative colitis. REVIEW OF ORGAN SYSTEMS: CONSTITUTIONAL: No reports of fevers or chills. GI: Denies any blood in stools or constipation. PHYSICAL EXAM: VITAL SIGNS: Stable GENERAL: Well-developed and pleasant in no acute distress. HEENT: No scleral icterus. Extraocular movements grossly intact. Moist buccal mucosa. NECK: Supple without lymphadenopathy. CHEST: Unlabored respirations. Equal bilateral excursions. CARDIOVASCULAR: Regular rate and rhythm. Distal 2+ pulses. ABDOMEN: Soft, nondistended. MUSCULOSKELETAL: No clubbing, cyanosis, or edema. ASSESSMENT: 1. Gastroesophageal reflux disease PLAN: 1. Recommend proceeding with an upper endoscopy Past Medical History Past Medical History: Cancer, Chest Pain / Angina, COPD, Osteoarthritis (OA), Prostate Disorder Additional Past Medical History / Comment(s): Difficulty swallowing. Hx bladder cancer 15 yrs ago, hx right testicular cancer - surgery & radiation 20+ yrs ago, occassional migraines, , hx gastritis, ulcer with last scope. hx Diego's palsy 40 yrs ago - 95% cleared up, hx sigmoid stricture , O2 2L per [facility] @ [facility]. "Broken heart syndrome. after having covid was on meds for 6 mos and had cardiac cath p er and no issues since" Lower back stimulator. encapsulated prostate being watched, Last Myocardial Infarction Date:: 05/25/14 History of Any Multi-Drug Resistant Organisms: None Reported Past Surgical History: Adenoidectomy, Appendectomy, Back Surgery, Bowel Resection, Cholecystectomy, Heart Catheterization, Hernia Repair, Orthopedic Surgery, Tonsillectomy Additional Past Surgical History / Comment(s): EGD/colonoscopy, cardiac cathetrization X3, several back surgeries including laminectomy, spinous process removed T11 and T12/cage/arturo, bilateral arthroscopic knee surgeries, bilateral thumb surgeries with right titanium joint, left rotator cuff repair, several nasal polypectomies, pain procedures - RFA cervical/back, bilateral inguinal hernia repairs, right orchiectomy, diaphragmatic hernia repair, section of sigmoid colon removed, back stimulator put in left hip for back pain at [facility], right hand surgery. Past Anesthesia/Blood Transfusion Reactions: No Reported Reaction Smoking Status: Former smoker - Past Family History Father Family Medical History: Cancer Additional Family Medical History / Comment(s): Father of stomach cancer at the age of 65 yrs. Mother Family Medical History: No Reported History Additional Family Medical History / Comment(s): Mother of "old age". She was 83 yrs old. Brother(s) Family Medical History: Cancer, Diabetes Mellitus Additional Family Medical History / Comment(s): Brain tumor. Sister(s) Family Medical History: Cancer, Diabetes Mellitus Additional Family Medical History / Comment(s): Sisters breast cancer. Medications and Allergies Home Medications Medication Instructions Recorded Confirmed Type Albuterol Nebulized [Ventolin 2.5 mg INHALATION RT-QID PRN 08/16/21 02/15/23 History Nebulized] Nitroglycerin Sl Tabs [Nitrostat] 0.4 mg SL Q5M PRN 08/16/21 02/15/23 History Fluticasone/Umeclidin/Vilanter 1 puff INHALATION RT-DAILY 03/20/22 02/15/23 History [Trelegy Ellipta 200-62.5-25] Sucralfate [Carafate] 1 gm PO TID #120 tablet 12/05/22 02/15/23 Rx Albuterol Nebulized [Ventolin 2.5 mg INHALATION RT-DAILY 02/11/23 02/15/23 History Nebulized] Omeprazole 20 mg PO DAILY 02/11/23 02/15/23 History hydrOXYzine HCL [Atarax] 10 mg PO DAILY PRN 02/11/23 02/15/23 History Aspirin 81 mg PO DAILY #30 tab 02/12/23 02/15/23 Rx Losartan [Cozaar] 25 mg PO DAILY #30 tab 02/12/23 02/15/23 Rx Ranolazine [Ranexa] 500 mg PO Q12HR #60 tab 02/12/23 02/15/23 Rx Allergies Allergy/AdvReac Type Severity Reaction Status Date / Time banana Allergy Migraine Verified 02/15/23 10:56 celecoxib [From Celebrex] Allergy Rash/Hives Verified 02/15/23 10:56 Iodinated Contrast Media Allergy Anaphylaxis Verified 02/15/23 10:56 [Iodinated Contrast Media - IV Dye] iodine Allergy Anaphylaxis Verified 02/15/23 10:56 nystatin Allergy Rash/Hives, Verified 02/15/23 10:56 Swelling, Difficulty breathing Penicillins Allergy Anaphylaxis Verified 02/15/23 10:56 Sulfa (Sulfonamide Allergy See comment Verified 02/15/23 10:56 Antibiotics) triamcinolone Allergy Rash/Hives Verified 02/15/23 10:56 fentanyl AdvReac Severe SEVERE Verified 02/15/23 10:56 MIGRAINES adhesive AdvReac tears skin Verified 02/15/23 10:56 chocolate flavor AdvReac TRIGGERS Verified 02/15/23 10:56 MIGRAINE duloxetine [From Cymbalta] AdvReac Headaches Verified 02/15/23 10:56 gabapentin AdvReac Confusion Verified 02/15/23 10:56 Opioids - Morphine Analogues AdvReac Migraine Verified 02/15/23 10:56 Opioids-Meperidine and AdvReac Migraine Verified 02/15/23 10:56 Related peanut AdvReac TRIGGERS Verified 02/15/23 10:56 MIGRAINES tree nut [Nut] AdvReac HEADACHE Verified 02/15/23 10:56 yellow dye AdvReac HEADACHE Verified 02/15/23 10:56
[2023-02-20] MEDS ORDERED: LACTATED RINGERS 1,000 ML IV SCH (11:08)
[2023-02-20] MEDS ORDERED: LIDOCAINE 1% (10MG/ML) FOR IV START INTRADERMA PRN (11:08)
[2023-02-20 11:28] VITALS: TEMP 97
[2023-02-20] MEDS ORDERED: PROPOFOL 10 MG/ML 20 ML VIAL IV ONE (12:05)
[2023-02-20] MEDS ORDERED: LIDOCAINE 1% INJ 10MG/ML (20 ML MDV) ONE (12:05)
--- NOTE | 2023-02-20 12:56 | P.PCN ---
Date of Procedure: 02/20/23 Description of Procedure: PREOPERATIVE DIAGNOSIS: Dysphagia. Presbyesophagus Upper esophageal stenosis POSTOPERATIVE DIAGNOSIS: Dysphagia. Presbyesophagus OPERATION: Esophagogastroduodenoscopy with rigid dilator over the guidewire 60 Fr. SURGEON: Bonnie Padilla MD ANESTHESIA: MAC. INDICATIONS: The patient is a 77-year-old male who presents with esophageal obstruction and dysphagia. Benefits and risks of the procedure were described. Informed consent was obtained. DESCRIPTION: The patient was brought into the endoscopy suite and laid in the left lateral decubitus position. After a timeout was confirmed, the procedure was initiated. An Olympus gastroscope was passed and the stomach was entered. Acute on chronic gastritis was identified. The scope was advanced to the duodenum which was unremarkable. Retroflexion the scope confirmed a Hill grade 1 lower esophageal valve. Next using an Danish rigid dilator, a guidewire was placed through the pediatric gastroscope. Next the scope was withdrawn. A 60-Congolese rigid Danish dilator was passed carefully along the posterior oropharynx to 40 cm and left in place for 2-3 minutes stretch. The dilator was withdrawn including the guidewire. The scope was reentered along the posterior oropharynx with no findings of full-thickness tear of the upper esophageal sphincter. No full-thickness injury was encountered. The GI tract was desufflated. The patient tolerated the procedure well. FINDINGS: Squamocolumnar junction unremarkable at 38 cm. Presbyesophagus for esophageal dysmotility Danish rigid dilator 60-Congolese completed. No recurrent hiatal hernia Hill grade 1 lower esophageal valve. LA grade A esophagitis. Gastritis, mild RECOMMENDATIONS: Upper endoscopy as needed Plan - Discharge Summary Discharge Rx Participant: No New Discharge Prescriptions: Continue Albuterol Nebulized [Ventolin Nebulized] 2.5 mg INHALATION RT-QID PRN PRN Reason: Shortness Of Breath Sucralfate [Carafate] 1 gm PO TID #120 tablet Albuterol Nebulized [Ventolin Nebulized] 2.5 mg INHALATION RT-DAILY Omeprazole 20 mg PO DAILY Ranolazine [Ranexa] 500 mg PO Q12HR #60 tab Aspirin 81 mg PO DAILY #30 tab Nitroglycerin Sl Tabs [Nitrostat] 0.4 mg SL Q5M PRN PRN Reason: Chest Pain Fluticasone/Umeclidin/Vilanter [Trelegy Ellipta 200-62.5-25] 1 puff INHALATION RT-DAILY hydrOXYzine HCL [Atarax] 10 mg PO DAILY PRN PRN Reason: Itching Losartan [Cozaar] 25 mg PO DAILY #30 tab Discharge Medication List Albuterol Nebulized [Ventolin Nebulized] 2.5 mg INHALATION RT-QID PRN 08/16/21 [History] Nitroglycerin Sl Tabs [Nitrostat] 0.4 mg SL Q5M PRN 08/16/21 [History] Fluticasone/Umeclidin/Vilanter [Trelegy Ellipta 200-62.5-25] 1 puff INHALATION RT-DAILY 03/20/22 [History] Sucralfate [Carafate] 1 gm PO TID #120 tablet 12/05/22 [Rx] Albuterol Nebulized [Ventolin Nebulized] 2.5 mg INHALATION RT-DAILY 02/11/23 [History] Omeprazole 20 mg PO DAILY 02/11/23 [History] hydrOXYzine HCL [Atarax] 10 mg PO DAILY PRN 02/11/23 [History] Aspirin 81 mg PO DAILY #30 tab 02/12/23 [Rx] Losartan [Cozaar] 25 mg PO DAILY #30 tab 02/12/23 [Rx] Ranolazine [Ranexa] 500 mg PO Q12HR #60 tab 02/12/23 [Rx] Follow up Appointment(s)/Referral(s): Bonnie Padilla MD [STAFF PHYSICIAN] - As Needed Patient Instructions/Handouts: Esophageal Dilation (GEN) Discharge Disposition: HOME SELF-CARE
[2023-02-20 13:05] VITALS: BP 109/67; PULSE 63; RESP 16
== END 2023-02-20 13:28 | disposition home or self-care (01) ==
LOC: ORWHC2ENDO 10:22
PROVIDERS: ATTEND Surgery Plastic and Reconstructive Surgery
DX: K22.2 Esophageal obstruction (principal); K22.89 Other specified disease of esophagus; I25.2 Old myocardial infarction; J44.9 Chronic obstructive pulmonary disease, unspecified; K21.9 Gastro-esophageal reflux disease without esophagitis; M19.90 Unspecified osteoarthritis, unspecified site; Z79.82 Long term (current) use of aspirin; Z79.899 Other long term (current) drug therapy; Z85.47 Personal history of malignant neoplasm of testis; Z85.51 Personal history of malignant neoplasm of bladder; Z86.16 Personal history of COVID-19; Z87.891 Personal history of nicotine dependence; Z88.0 Allergy status to penicillin; Z88.1 Allergy status to other antibiotic agents; Z88.2 Allergy status to sulfonamides; Z88.5 Allergy status to narcotic agent; Z88.6 Allergy status to analgesic agent; Z88.8 Allergy status to other drugs, medicaments and biological substances; Z90.49 Acquired absence of other specified parts of digestive tract; Z91.041 Radiographic dye allergy status
CPT/HCPCS: 43248; J2001; J2704

== ENCOUNTER 2023-04-10 06:47 | Day surgery (SDC) | payer MEDICARE ==
[2023-04-09 09:31] VITALS: BMI 19.5
[2023-04-10 07:30] VITALS: TEMP 96.7
[2023-04-10] MEDS: LACTATED RINGERS 1,000 ML IV SCH (07:31)
--- NOTE | 2023-04-10 07:32 | P.GSHP ---
History of Present Illness H&P Date: 04/10/23 CHIEF COMPLAINT: Esophageal stricture HISTORY OF PRESENT ILLNESS: The patient is a 77-year-old male who presents reports dysphagia. Upper endoscopy was offered for further evaluation and management. PAST MEDICAL HISTORY: Please see list. PAST SURGICAL HISTORY: Please see list. MEDICATIONS: Please see list. ALLERGIES: Please see list. SOCIAL HISTORY: No illicit drug use FAMILY HISTORY: No reports of Crohn disease or ulcerative colitis. REVIEW OF ORGAN SYSTEMS: CONSTITUTIONAL: No reports of fevers or chills. GI: Denies any blood in stools or constipation. PHYSICAL EXAM: VITAL SIGNS: Stable GENERAL: Well-developed and pleasant in no acute distress. HEENT: No scleral icterus. Extraocular movements grossly intact. Moist buccal mucosa. NECK: Supple without lymphadenopathy. CHEST: Unlabored respirations. Equal bilateral excursions. CARDIOVASCULAR: Regular rate and rhythm. Distal 2+ pulses. ABDOMEN: Soft, nondistended. MUSCULOSKELETAL: No clubbing, cyanosis, or edema. ASSESSMENT: 1. Esophageal stricture PLAN: 1. Recommend proceeding with an upper endoscopy with rigid dilators. Past Medical History Past Medical History: Cancer, Chest Pain / Angina, COPD, Hearing Disorder / Deafness, Osteoarthritis (OA) Additional Past Medical History / Comment(s): Difficulty swallowing. 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 "Broken Heart Syndrome". "Hx Covid, was on meds for 6 months, had cardiac cath and no issues since." Lower back stimulator. Encapsulated prostate - being watched. Hard of hearing. Last Myocardial Infarction Date:: 05/25/14 History of Any Multi-Drug Resistant Organisms: None Reported Past Surgical History: Adenoidectomy, Appendectomy, Back Surgery, Bowel Resection, Cholecystectomy, Heart Catheterization, Hernia Repair, Orthopedic Surgery, Tonsillectomy Additional Past Surgical History / Comment(s): Multiple EGD's, colonoscopy, cardiac cathetrization X2, several back surgeries including laminectomy, spinous process removed T11 and T12/cage/arturo, bilateral arthroscopic knee surgeries, bilateral thumb surgeries with right titanium joint, left rotator cuff repair, several nasal polypectomies, pain procedures - RFA cervical/back, bilateral inguinal hernia repairs, right orchiectomy, diaphragmatic hernia repair, section of sigmoid colon removed, back stimulator put in left hip for back pain at [facility], right hand surgery. Past Anesthesia/Blood Transfusion Reactions: No Reported Reaction Past Psychological History: No Psychological Hx Reported Smoking Status: Former smoker Past Alcohol Use History: None Reported Additional Past Alcohol Use History / Comment(s): Started smoking in 1959 and quit in 2003, smoked 1 1/2ppd. Past Drug Use History: None Reported - Past Family History Father Family Medical History: Cancer Additional Family Medical History / Comment(s): Father of stomach cancer at the age of 65 yrs. Mother Family Medical History: No Reported History Additional Family Medical History / Comment(s): Mother of "old age". She was 83 yrs old. Brother(s) Family Medical History: Cancer, Diabetes Mellitus Additional Family Medical History / Comment(s): Brain tumor. Sister(s) Family Medical History: Cancer, Diabetes Mellitus Additional Family Medical History / Comment(s): Sisters breast cancer. Medications and Allergies Home Medications Medication Instructions Recorded Confirmed Type Albuterol Nebulized [Ventolin 2.5 mg INHALATION QID 08/16/21 04/10/23 History Nebulized] Nitroglycerin Sl Tabs [Nitrostat] 0.4 mg SL Q5M PRN 08/16/21 04/10/23 History Fluticasone/Umeclidin/Vilanter 1 puff INHALATION QAM 03/20/22 04/10/23 History [Trelegy Ellipta 200-62.5-25] Sucralfate [Carafate] 1 gm PO TID #120 tablet 12/05/22 04/10/23 Rx Omeprazole 20 mg PO DAILY 02/11/23 04/10/23 History hydrOXYzine HCL [Atarax] 10 mg PO DAILY PRN 02/11/23 04/10/23 History Aspirin 81 mg PO DAILY #30 tab 02/12/23 04/10/23 Rx Ranolazine [Ranexa] 500 mg PO Q12HR #60 tab 02/12/23 04/10/23 Rx Losartan [Cozaar] 25 mg PO QAM 04/09/23 04/10/23 History Allergies Allergy/AdvReac Type Severity Reaction Status Date / Time banana Allergy Migraine Verified 04/10/23 07:28 celecoxib [From Celebrex] Allergy Rash/Hives Verified 04/10/23 07:28 Iodinated Contrast Media Allergy Anaphylaxis Verified 04/10/23 07:28 [Iodinated Contrast Media - IV Dye] iodine Allergy Anaphylaxis Verified 04/10/23 07:28 nystatin Allergy Rash/Hives, Verified 04/10/23 07:28 Swelling, Difficulty breathing Penicillins Allergy Anaphylaxis Verified 04/10/23 07:28 Sulfa (Sulfonamide Allergy See comment Verified 04/10/23 07:28 Antibiotics) triamcinolone Allergy Rash/Hives Verified 04/10/23 07:28 fentanyl AdvReac Severe SEVERE Verified 04/10/23 07:28 MIGRAINES adhesive AdvReac tears skin Verified 04/10/23 07:28 chocolate flavor AdvReac TRIGGERS Verified 04/10/23 07:28 MIGRAINE duloxetine [From Cymbalta] AdvReac Headaches Verified 04/10/23 07:28 gabapentin AdvReac Confusion Verified 04/10/23 07:28 Opioids - Morphine Analogues AdvReac Migraine Verified 04/10/23 07:28 Opioids-Meperidine and AdvReac Migraine Verified 04/10/23 07:28 Related peanut AdvReac TRIGGERS Verified 04/10/23 07:28 MIGRAINES tree nut [Nut] AdvReac HEADACHE Verified 04/10/23 07:28 yellow dye AdvReac HEADACHE Verified 04/10/23 07:28 Surgical - Exam Vital Signs Temp Pulse Resp BP Pulse Ox 96.7 F L 88 18 160/84 92 L 04/10/23 07:25 04/10/23 07:25 04/10/23 07:25 04/10/23 07:25 04/10/23 07:25
[2023-04-10] MEDS ORDERED: PROPOFOL 10 MG/ML 20 ML VIAL IV ONE (08:02)
--- NOTE | 2023-04-10 08:23 | P.PCN ---
Date of Procedure: 04/10/23 Description of Procedure: PREOPERATIVE DIAGNOSIS: Dysphagia. Presbyesophagus Upper esophageal stenosis POSTOPERATIVE DIAGNOSIS: Dysphagia. Presbyesophagus Upper esophageal stenosis OPERATION: Esophagogastroduodenoscopy with rigid dilator over the guidewire 60 Fr. SURGEON: Bonnie Padilla MD ANESTHESIA: MAC. INDICATIONS: The patient is a 77-year-old male who presents with esophageal obstruction and dysphagia. Benefits and risks of the procedure were described. Informed consent was obtained. DESCRIPTION: The patient was brought into the endoscopy suite and laid in the left lateral decubitus position. After a timeout was confirmed, the procedure was initiated. An Olympus gastroscope was passed and the stomach was entered. Acute on chronic gastritis was identified. The scope was advanced to the duodenum which was unremarkable. Retroflexion the scope confirmed a Hill grade 1 lower esophageal valve. Next using an Ghanaian rigid dilator, a guidewire was placed through the pediatric gastroscope. Next the scope was withdrawn. A 60-Latvian rigid Ghanaian dilator was passed carefully along the posterior oropharynx to 40 cm and left in place for 2-3 minutes stretch. The dilator was withdrawn including the guidewire. The scope was reentered along the posterior oropharynx with no findings of full-thickness tear of the upper esophageal sphincter. No full-thickness injury was encountered. The GI tract was desufflated. The patient tolerated the procedure well. FINDINGS: Squamocolumnar junction unremarkable at 38 cm. Presbyesophagus for esophageal dysmotility Ghanaian rigid dilator 60-Latvian completed. No recurrent hiatal hernia Hill grade 1 lower esophageal valve. LA grade A esophagitis. Gastritis, mild RECOMMENDATIONS: He has worsening esophageal dysmotility. Next upper endoscopy 4 weeks with dilation Plan - Discharge Summary Discharge Rx Participant: No New Discharge Prescriptions: Continue Albuterol Nebulized [Ventolin Nebulized] 2.5 mg INHALATION QID Sucralfate [Carafate] 1 gm PO TID #120 tablet Omeprazole 20 mg PO DAILY Ranolazine [Ranexa] 500 mg PO Q12HR #60 tab Aspirin 81 mg PO DAILY #30 tab Nitroglycerin Sl Tabs [Nitrostat] 0.4 mg SL Q5M PRN PRN Reason: Chest Pain Fluticasone/Umeclidin/Vilanter [Trelegy Ellipta 200-62.5-25] 1 puff INHALATION QAM hydrOXYzine HCL [Atarax] 10 mg PO DAILY PRN PRN Reason: Itching Losartan [Cozaar] 25 mg PO QAM Discharge Medication List Albuterol Nebulized [Ventolin Nebulized] 2.5 mg INHALATION QID 08/16/21 [History] Nitroglycerin Sl Tabs [Nitrostat] 0.4 mg SL Q5M PRN 08/16/21 [History] Fluticasone/Umeclidin/Vilanter [Trelegy Ellipta 200-62.5-25] 1 puff INHALATION QAM 03/20/22 [History] Sucralfate [Carafate] 1 gm PO TID #120 tablet 12/05/22 [Rx] Omeprazole 20 mg PO DAILY 02/11/23 [History] hydrOXYzine HCL [Atarax] 10 mg PO DAILY PRN 02/11/23 [History] Aspirin 81 mg PO DAILY #30 tab 02/12/23 [Rx] Ranolazine [Ranexa] 500 mg PO Q12HR #60 tab 02/12/23 [Rx] Losartan [Cozaar] 25 mg PO QAM 04/09/23 [History] Follow up Appointment(s)/Referral(s): Bonnie Padilla MD [STAFF PHYSICIAN] - 05/08/23 (EGD with dilation Angel 04/03/23) Patient Instructions/Handouts: Esophageal Dilation (DC) Discharge Disposition: HOME SELF-CARE
[2023-04-10 08:33] VITALS: RESP 16
[2023-04-10 09:07] VITALS: BP 105/66; PULSE 72
== END 2023-04-10 08:59 | disposition home or self-care (01) ==
LOC: ORWHC2ENDO 06:47
PROVIDERS: ATTEND Surgery Plastic and Reconstructive Surgery
DX: K22.2 Esophageal obstruction (principal); J44.9 Chronic obstructive pulmonary disease, unspecified; I25.2 Old myocardial infarction; M19.90 Unspecified osteoarthritis, unspecified site; Z79.82 Long term (current) use of aspirin; Z79.899 Other long term (current) drug therapy; Z85.47 Personal history of malignant neoplasm of testis; Z85.51 Personal history of malignant neoplasm of bladder; Z86.16 Personal history of COVID-19; Z87.891 Personal history of nicotine dependence; Z88.0 Allergy status to penicillin; Z88.1 Allergy status to other antibiotic agents; Z88.2 Allergy status to sulfonamides; Z88.5 Allergy status to narcotic agent; Z88.6 Allergy status to analgesic agent; Z88.8 Allergy status to other drugs, medicaments and biological substances; Z90.49 Acquired absence of other specified parts of digestive tract; Z91.041 Radiographic dye allergy status
CPT/HCPCS: 43248; J2704

== ENCOUNTER 2023-05-08 08:10 | Day surgery (SDC) | payer MEDICARE ==
--- NOTE | 2023-05-08 07:46 | P.GSHP ---
History of Present Illness H&P Date: 05/08/23 CHIEF COMPLAINT: Esophageal stricture HISTORY OF PRESENT ILLNESS: The patient is a 77-year-old male who presents reports dysphagia. Upper endoscopy was offered for further evaluation and management. PAST MEDICAL HISTORY: Please see list. PAST SURGICAL HISTORY: Please see list. MEDICATIONS: Please see list. ALLERGIES: Please see list. SOCIAL HISTORY: No illicit drug use FAMILY HISTORY: No reports of Crohn disease or ulcerative colitis. REVIEW OF ORGAN SYSTEMS: CONSTITUTIONAL: No reports of fevers or chills. GI: Denies any blood in stools or constipation. PHYSICAL EXAM: VITAL SIGNS: Stable GENERAL: Well-developed and pleasant in no acute distress. HEENT: No scleral icterus. Extraocular movements grossly intact. Moist buccal mucosa. NECK: Supple without lymphadenopathy. CHEST: Unlabored respirations. Equal bilateral excursions. CARDIOVASCULAR: Regular rate and rhythm. Distal 2+ pulses. ABDOMEN: Soft, nondistended. MUSCULOSKELETAL: No clubbing, cyanosis, or edema. ASSESSMENT: 1. Esophageal stricture PLAN: 1. Recommend proceeding with an upper endoscopy with rigid dilators. Past Medical History Past Medical History: Cancer, Chest Pain / Angina, COPD, GERD/Reflux, Hearing Disorder / Deafness, Osteoarthritis (OA) Additional Past Medical History / Comment(s): Difficulty swallowing. 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 "Broken Heart Syndrome". "Hx Covid, was on meds for 6 months, had cardiac cath and no issues since." Lower back stimulator. Encapsulated prostate - being watched. Hard of hearing. Last Myocardial Infarction Date:: 05/25/14 History of Any Multi-Drug Resistant Organisms: None Reported Past Surgical History: Adenoidectomy, Appendectomy, Back Surgery, Bowel Resection, Cholecystectomy, Heart Catheterization, Hernia Repair, Orthopedic Surgery, Tonsillectomy Additional Past Surgical History / Comment(s): Multiple EGD's, colonoscopy, cardiac cathetrization X2, several back surgeries including laminectomy, spinous process removed T11 and T12/cage/arturo, bilateral arthroscopic knee surgeries, bilateral thumb surgeries with right titanium joint, left rotator cuff repair, several nasal polypectomies, pain procedures - RFA cervical/back, bilateral inguinal hernia repairs, right orchiectomy, diaphragmatic hernia repair, section of sigmoid colon removed, back stimulator put in left hip for back pain at [facility], right hand surgery. Past Anesthesia/Blood Transfusion Reactions: No Reported Reaction Smoking Status: Former smoker - Past Family History Father Family Medical History: Cancer Additional Family Medical History / Comment(s): Father of stomach cancer at the age of 65 yrs. Mother Family Medical History: No Reported History Additional Family Medical History / Comment(s): Mother of "old age". She was 83 yrs old. Brother(s) Family Medical History: Cancer, Diabetes Mellitus Additional Family Medical History / Comment(s): Brain tumor. Sister(s) Family Medical History: Cancer, Diabetes Mellitus Additional Family Medical History / Comment(s): Sisters breast cancer. Medications and Allergies Home Medications Medication Instructions Recorded Confirmed Type Albuterol Nebulized [Ventolin 2.5 mg INHALATION QID 08/16/21 05/07/23 History Nebulized] Nitroglycerin Sl Tabs [Nitrostat] 0.4 mg SL Q5M PRN 08/16/21 05/07/23 History Fluticasone/Umeclidin/Vilanter 1 puff INHALATION QAM 03/20/22 05/07/23 History [Trelegy Ellipta 200-62.5-25] Sucralfate [Carafate] 1 gm PO TID #120 tablet 12/05/22 05/07/23 Rx Omeprazole 20 mg PO DAILY 02/11/23 05/07/23 History hydrOXYzine HCL [Atarax] 10 mg PO DAILY PRN 02/11/23 05/07/23 History Aspirin 81 mg PO DAILY #30 tab 02/12/23 05/07/23 Rx Ranolazine [Ranexa] 500 mg PO Q12HR #60 tab 02/12/23 05/07/23 Rx Losartan [Cozaar] 25 mg PO QAM 04/09/23 05/07/23 History Allergies Allergy/AdvReac Type Severity Reaction Status Date / Time banana Allergy Migraine Verified 05/07/23 08:55 celecoxib [From Celebrex] Allergy Rash/Hives Verified 05/07/23 08:55 Iodinated Contrast Media Allergy Anaphylaxis Verified 05/07/23 08:55 [Iodinated Contrast Media - IV Dye] iodine Allergy Anaphylaxis Verified 05/07/23 08:55 nystatin Allergy Rash/Hives, Verified 05/07/23 08:55 Swelling, Difficulty breathing Penicillins Allergy Anaphylaxis Verified 05/07/23 08:55 Sulfa (Sulfonamide Allergy See comment Verified 05/07/23 08:55 Antibiotics) triamcinolone Allergy Rash/Hives Verified 05/07/23 08:55 fentanyl AdvReac Severe SEVERE Verified 05/07/23 08:55 MIGRAINES adhesive AdvReac tears skin Verified 05/07/23 08:55 chocolate flavor AdvReac TRIGGERS Verified 05/07/23 08:55 MIGRAINE duloxetine [From Cymbalta] AdvReac Headaches Verified 05/07/23 08:55 gabapentin AdvReac Confusion Verified 05/07/23 08:55 Opioids - Morphine Analogues AdvReac Migraine Verified 05/07/23 08:55 Opioids-Meperidine and AdvReac Migraine Verified 05/07/23 08:55 Related peanut AdvReac TRIGGERS Verified 05/07/23 08:55 MIGRAINES tree nut [Nut] AdvReac HEADACHE Verified 05/07/23 08:55 yellow dye AdvReac HEADACHE Verified 05/07/23 08:55
[2023-05-08] MEDS ORDERED: LIDOCAINE 1% (10MG/ML) FOR IV START INTRADERMA PRN (09:17)
[2023-05-08 09:25] VITALS: TEMP 97.2
[2023-05-08] MEDS: LACTATED RINGERS 1,000 ML IV SCH (09:29)
[2023-05-08] MEDS ORDERED: PROPOFOL 10 MG/ML 20 ML VIAL IV ONE (09:36)
[2023-05-08] MEDS ORDERED: LIDOCAINE 1% INJ 10MG/ML (20 ML MDV) ONE (09:36)
--- NOTE | 2023-05-08 10:01 | P.PCN ---
Date of Procedure: 05/08/23 Description of Procedure: PREOPERATIVE DIAGNOSIS: Dysphagia. Presbyesophagus Upper esophageal stenosis POSTOPERATIVE DIAGNOSIS: Dysphagia. Presbyesophagus Upper esophageal stenosis OPERATION: Esophagogastroduodenoscopy with rigid dilator over the guidewire 60 Fr. SURGEON: Bonnie Padilla MD ANESTHESIA: MAC. INDICATIONS: The patient is a 77-year-old male who presents with esophageal obstruction and dysphagia. Benefits and risks of the procedure were described. Informed consent was obtained. DESCRIPTION: The patient was brought into the endoscopy suite and laid in the left lateral decubitus position. After a timeout was confirmed, the procedure was initiated. An Olympus gastroscope was passed and the stomach was entered. Acute on chronic gastritis was identified. The scope was advanced to the duodenum which was unremarkable. Retroflexion the scope confirmed a Hill grade 1 lower esophageal valve. Next using an South Korean rigid dilator, a guidewire was placed through the pediatric gastroscope. Next the scope was withdrawn. A 60-Latvian rigid [place] Korean dilator was passed carefully along the posterior oropharynx to 40 cm and left in place for 2-3 minutes stretch. The dilator was withdrawn including the guidewire. The scope was reentered along the posterior oropharynx with no findings of full-thickness tear of the upper esophageal sphincter. No full-thickness injury was encountered. The GI tract was desufflated. The patient tolerated the procedure well. FINDINGS: Squamocolumnar junction unremarkable at 38 cm. Presbyesophagus for esophageal dysmotility South Korean rigid dilator 60-Latvian completed. No recurrent hiatal hernia Hill grade 1 lower esophageal valve. LA grade A esophagitis. Gastroparesis with retained food RECOMMENDATIONS: Next upper endoscopy 4 weeks with dilation Referral to the [facility] for POEM in process for treatment of esophageal dysmotility Plan - Discharge Summary Discharge Rx Participant: No New Discharge Prescriptions: Continue Albuterol Nebulized [Ventolin Nebulized] 2.5 mg INHALATION QID Sucralfate [Carafate] 1 gm PO TID #120 tablet Omeprazole 20 mg PO DAILY Ranolazine [Ranexa] 500 mg PO Q12HR #60 tab Aspirin 81 mg PO DAILY #30 tab Nitroglycerin Sl Tabs [Nitrostat] 0.4 mg SL Q5M PRN PRN Reason: Chest Pain Fluticasone/Umeclidin/Vilanter [Trelegy Ellipta 200-62.5-25] 1 puff INHALATION QAM hydrOXYzine HCL [Atarax] 10 mg PO DAILY PRN PRN Reason: Itching Losartan [Cozaar] 25 mg PO QAM Discharge Medication List Albuterol Nebulized [Ventolin Nebulized] 2.5 mg INHALATION QID 08/16/21 [History ] Nitroglycerin Sl Tabs [Nitrostat] 0.4 mg SL Q5M PRN 08/16/21 [History] Fluticasone/Umeclidin/Vilanter [Trelegy Ellipta 200-62.5-25] 1 puff INHALATION QAM 03/20/22 [History] Sucralfate [Carafate] 1 gm PO TID #120 tablet 12/05/22 [Rx] Omeprazole 20 mg PO DAILY 02/11/23 [History] hydrOXYzine HCL [Atarax] 10 mg PO DAILY PRN 02/11/23 [History] Aspirin 81 mg PO DAILY #30 tab 02/12/23 [Rx] Ranolazine [Ranexa] 500 mg PO Q12HR #60 tab 02/12/23 [Rx] Losartan [Cozaar] 25 mg PO QAM 04/09/23 [History] Follow up Appointment(s)/Referral(s): Bonnie Padilla MD [STAFF PHYSICIAN] - 06/12/23 (IN ENDOSCOPY AT [place]) Patient Instructions/Handouts: Esophageal Dilation (DC) Discharge Disposition: HOME SELF-CARE
[2023-05-08 10:35] VITALS: BP 110/80; PULSE 62; RESP 16
== END 2023-05-08 10:29 | disposition home or self-care (01) ==
LOC: ORWHC2ENDO 08:10
PROVIDERS: ATTEND Surgery Plastic and Reconstructive Surgery
DX: K22.2 Esophageal obstruction (principal); I25.2 Old myocardial infarction; J44.9 Chronic obstructive pulmonary disease, unspecified; K22.89 Other specified disease of esophagus; M19.90 Unspecified osteoarthritis, unspecified site; K21.00 Gastro-esophageal reflux disease with esophagitis, without bleeding; H91.90 Unspecified hearing loss, unspecified ear; Z79.82 Long term (current) use of aspirin; Z79.899 Other long term (current) drug therapy; Z85.47 Personal history of malignant neoplasm of testis; Z85.51 Personal history of malignant neoplasm of bladder; Z86.16 Personal history of COVID-19; Z87.891 Personal history of nicotine dependence; Z88.0 Allergy status to penicillin; Z88.1 Allergy status to other antibiotic agents; Z88.2 Allergy status to sulfonamides; Z88.5 Allergy status to narcotic agent; Z88.6 Allergy status to analgesic agent; Z88.8 Allergy status to other drugs, medicaments and biological substances; Z90.49 Acquired absence of other specified parts of digestive tract; Z91.041 Radiographic dye allergy status
CPT/HCPCS: 43248; J2001; J2704

== ENCOUNTER 2023-06-30 06:50 | Emergency (ER) | payer MEDICARE ==
--- NOTE | 2023-06-30 07:12 | ED ---
Fall HPI - General Chief Complaint: Fall Stated Complaint: FALL, NECK AND ARM PAIN Time Seen by Provider: 06/30/23 06:58 Source: patient, RN notes reviewed Mode of arrival: ambulatory Limitations: no limitations - History of Present Illness Initial Comments: This is a 78-year-old male who presents to the emergency department for a fall. States that last night he was in the shower. He was taking off his pants when he lost balance and fell. His states that he is supposed to sit down when taking them off as opposed to standing like he was this time. When he fell he landed on his right side. Currently having pain to the right side of his neck, right rib cage, right wrist, right elbow, right hip, and right knee. Denies hitting his head, blood thinner use, or any loss of consciousness. Not taking any medication for his pain. The hip and knee are the most painful areas and making it difficult for him to ambulate. MD Complaint: fall - Related Data Home Medications Medication Instructions Recorded Confirmed Albuterol Nebulized [Ventolin 2.5 mg INHALATION QID 08/16/21 05/08/23 Nebulized] Nitroglycerin Sl Tabs [Nitrostat] 0.4 mg SL Q5M PRN 08/16/21 05/08/23 Fluticasone/Umeclidin/Vilanter 1 puff INHALATION QAM 03/20/22 05/08/23 [Trelegy Ellipta 200-62.5-25] Omeprazole 20 mg PO DAILY 02/11/23 05/08/23 hydrOXYzine HCL [Atarax] 10 mg PO DAILY PRN 02/11/23 05/08/23 Losartan [Cozaar] 25 mg PO QAM 04/09/23 05/08/23 Previous Rx's Medication Instructions Recorded Sucralfate [Carafate] 1 gm PO TID #120 tablet 12/05/22 Aspirin 81 mg PO DAILY #30 tab 02/12/23 Ranolazine [Ranexa] 500 mg PO Q12HR #60 tab 02/12/23 Ketorolac [Toradol] 10 mg PO Q6HR PRN #15 tab 06/30/23 Lidocaine 5% Patch [Lidoderm 5% 1 patch TOPICAL DAILY PRN #30 patch 06/30/23 Patch] Allergies Allergy/AdvReac Type Severity Reaction Status Date / Time banana Allergy Migraine Verified 06/30/23 06:57 celecoxib [From Celebrex] Allergy Rash/Hives Verified 06/30/23 06:57 Iodinated Contrast Media Allergy Anaphylaxis Verified 06/30/23 06:57 [Iodinated Contrast Media - IV Dye] iodine Allergy Anaphylaxis Verified 06/30/23 06:57 nystatin Allergy Rash/Hives, Verified 06/30/23 06:57 Swelling, Difficulty breathing Penicillins Allergy Anaphylaxis Verified 06/30/23 06:57 Sulfa (Sulfonamide Allergy See comment Verified 06/30/23 06:57 Antibiotics) triamcinolone Allergy Rash/Hives Verified 06/30/23 06:57 fentanyl AdvReac Severe SEVERE Verified 06/30/23 06:57 MIGRAINES adhesive AdvReac tears skin Verified 06/30/23 06:57 chocolate flavor AdvReac TRIGGERS Verified 06/30/23 06:57 MIGRAINE duloxetine [From Cymbalta] AdvReac Headaches Verified 06/30/23 06:57 gabapentin AdvReac Confusion Verified 06/30/23 06:57 Opioids - Morphine Analogues AdvReac Migraine Verified 06/30/23 06:57 Opioids-Meperidine and AdvReac Migraine Verified 06/30/23 06:57 Related peanut AdvReac TRIGGERS Verified 06/30/23 06:57 MIGRAINES tree nut [Nut] AdvReac HEADACHE Verified 06/30/23 06:57 yellow dye AdvReac HEADACHE Verified 06/30/23 06:57 Review of Systems ROS Statement: Those systems with pertinent positive or pertinent negative responses have been documented in the HPI. ROS Other: All systems not noted in ROS Statement are negative. Past Medical History Past Medical History: Cancer, Chest Pain / Angina, COPD, Hearing Disorder / Deafness, Osteoarthritis (OA) Additional Past Medical History / Comment(s): Difficulty swallowing. 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 "Broken Heart Syndrome". "Hx Covid, was on meds for 6 months, had cardiac cath and no issues since." Lower back stimulator. Encapsulated prostate - being watched. Hard of hearing. Last Myocardial Infarction Date:: 05/25/14 History of Any Multi-Drug Resistant Organisms: None Reported Past Surgical History: Adenoidectomy, Appendectomy, Back Surgery, Bowel Resection, Cholecystectomy, Heart Catheterization, Hernia Repair, Orthopedic Surgery, Tonsillectomy Additional Past Surgical History / Comment(s): Multiple EGD's, colonoscopy, cardiac cathetrization X2, several back surgeries including laminectomy, spinous process removed T11 and T12/cage/arturo, bilateral arthroscopic knee surgeries, bilateral thumb surgeries with right titanium joint, left rotator cuff repair, several nasal polypectomies, pain procedures - RFA cervical/back, bilateral inguinal hernia repairs, right orchiectomy, diaphragmatic hernia repair, section of sigmoid colon removed, back stimulator put in left hip for back pain at [facility], [place], right hand surgery. Past Anesthesia/Blood Transfusion Reactions: No Reported Reaction Past Psychological History: No Psychological Hx Reported Smoking Status: Former smoker - Past Family History Father Family Medical History: Cancer Additional Family Medical History / Comment(s): Father of stomach cancer at the age of 65 yrs. Mother Family Medical History: No Reported History Additional Family Medical History / Comment(s): Mother of "old age". She was 83 yrs old. Brother(s) Family Medical History: Cancer, Diabetes Mellitus Additional Family Medical History / Comment(s): Brain tumor. Sister(s) Family Medical History: Cancer, Diabetes Mellitus Additional Family Medical History / Comment(s): Sisters breast cancer. General Exam Limitations: no limitations General appearance: alert, in no apparent distress Head exam: Present: atraumatic, normocephalic, normal inspection Neck exam: Present: other (Tenderness to palpation over the right side of the neck. Full range of motion. No deformities.) Respiratory exam: Present: normal lung sounds bilaterally, chest wall tenderness (Right rib cage). Absent: respiratory distress, wheezes, rales, rhonchi, stridor Cardiovascular Exam: Present: regular rate, normal rhythm, normal heart sounds. Absent: systolic murmur, diastolic murmur, rubs, gallop, clicks Extremities exam: Present: other (Swelling, tenderness, and ecchymosis over the right wrist. Skin tear to the right elbow. Swelling over the right hip with tenderness to palpation. Range of motion limited by pain. 2+ DP and PT pulses.) Neurological exam: Present: alert, oriented X3, CN II-XII intact Psychiatric exam: Present: normal affect, normal mood Course Vital Signs 06/30/23 06/30/23 06:55 10:29 Temperature 97.7 F 97.8 F Pulse Rate 70 68 Respiratory 119 H 18 Rate Blood Pressure 119/74 97/65 O2 Sat by Pulse 93 L 92 L Oximetry Medical Decision Making - Medical Decision Making This is a 78 year old male who presents to the emergency department for a fall. Was pt. sent in by a medical professional or institution? @ -No Did you speak to anyone other than the patient for history? @ -His provided the information about how he fell. Did you review nursing and triage notes? @ -Yes, and I agree, it is accurate with regards to the patient's symptoms. Were old charts reviewed? @ -No Differential Diagnosis? @ -Differential Musculoskeletal: Muscular strain, contusion, ligament sprain, fracture, arthritis, septic arthritis, bursitis, cellulitis, muscle spasm, nerve compression, DVT, arterial occlusion, herpes zoster, electrolyte abnormality, tumor.... This is not meant to be in all inclusive list EKG interpreted by me (3pts min.)? @ -Not obtained X-rays interpreted by me (1pt min.)? @ -X-ray of the cervical spine, right rib cage, right elbow, right wrist, right hip, and right knee obtained. My interpretation identifies no acute fractures on any of the images. CT interpreted by me (1pt min.)? @ -CT scan of the right hip obtained. My interpretation identifies no acute fractures. U/S interpreted by me (1pt. min.)? @ -Not obtained What testing was considered but not performed? (CT, X-rays, U/S, labs)? Why? @ -None What meds were considered but not given? Why? @ -None Did you discuss the management of the patient with other professionals? @ -No Did you reconcile home meds? @ -No Was smoking cessation discussed for >3mins.? @ -No Was critical care preformed (if so, how long)? @ -No Were there social determinants of health that impacted care today? How? (Homelessness, low income, unemployed, alcoholism, drug addiction, transportation, low edu. Level, literacy, decrease access to med. care, intermediate, rehab)? @ -No Was there de-escalation of care discussed even if they declined? (Discuss DNR or withdrawal of care, Hospice)? @ -No What co-morbidities impacted this encounter? (DM, HTN, Smoking, COPD, CAD, Cancer, CVA, Hep., AIDS, mental health diagnosis, sleep apnea, morbid obesity)? @ -Osteoarthritis, COPD Was patient admitted / discharged? @ -Discharged. X-ray of the cervical spine, right rib cage, right elbow, right wrist, right hip, and right knee obtained revealing no acute fractures or other acute process. He had a superficial skin tear to the right elbow that was bandaged. Tetanus vaccine is up-to-date. After being treated with pain medication, patient did still have some difficulty with ambulation due to pain in the right hip. We subsequently ordered a CT scan of the right hip, which also did not identify any acute fractures. We were able to get the patient's pain to a manageable level. Prescription for Toradol and lidocaine patches provided with dosing instructions reviewed. He is advised to take several deep breaths an hour despite the pain over the right rib cage to reduce the risk of a secondary pneumonia. Advised close follow-up with his primary care provider. Patient discharged home in stable condition. Undiagnosed new problem with uncertain prognosis? @ -None Drug Therapy requiring intensive monitoring for toxicity (Heparin, Nitro, Insulin, Cardizem)? @ -None Were any procedures done? @ -None Diagnosis/symptom? @ -Fall, right hip pain, rib contusion Acute, or Chronic, or Acute on Chronic? @ -Acute Uncomplicated (without systemic symptoms) or Complicated (systemic symptoms)? @ -Uncomplicated Side effects of treatment? @ -None Exacerbation, Progression, or Severe Exacerbation] @ -Not applicable Poses a threat to life or bodily function? @ -The pain may temporarily limit his ability to ambulate. Return precautions reviewed in depth, the patient is instructed to return to the emergency department with any new, worsening, or concerning symptoms. Patient verbalized understanding. This case was discussed in detail with the attending ED physician, Dr. El. Presentation, findings, and treatment plan discussed in detail as well. - Radiology Data Radiology results: report reviewed, image reviewed Disposition Clinical Impression: Fall, Left hip pain, Rib contusion Disposition: HOME SELF-CARE Instructions (If sedation given, give patient instructions): Fall Prevention for Older Adults (ED), Rib Contusion (ED) Additional Instructions: Return to the emergency department with any new, worsening, or concerning symptoms. Take the Toradol with Tylenol as needed for pain relief. If you choose to take the Toradol, do not take any other anti-inflammatories such as ibuprofen, take one or the other. You can apply the lidocaine patches daily as well. Make sure you take several deep breaths an hour despite the pain to reduce the risk of developing a secondary pneumonia. Follow up with your primary care provider in 1-2 days. Prescriptions: Lidocaine 5% Patch [Lidoderm 5% Patch] 1 patch TOPICAL DAILY PRN #30 patch PRN Reason: Pain Ketorolac [Toradol] 10 mg PO Q6HR PRN #15 tab PRN Reason: Pain Is patient prescribed a controlled substance at d/c from ED?: No Referrals: Lul Garcia MD [Primary Care Provider] - 1-2 days Time of Disposition: 09:54
[2023-06-30] MEDS: ACETAMINOPHEN TAB 500 MG TAB PO STA (07:39)
[2023-06-30] MEDS: KETOROLAC 15 MG/ML 1 ML VIAL IM STA (07:40)
--- NOTE | 2023-06-30 07:43 | XR ---
Right wrist. HISTORY: Pain following trauma COMPARISON: None. TECHNIQUE: 4 views of the right wrist are obtained. FINDINGS: There is diffuse osteopenia. There are postsurgical changes involving the first and second metacarpals presumably for prior fractu re fixation. There is near fusion of the first metacarpophalangeal joint There is no acute fracture or dislocation. IMPRESSION: No evidence of acute trauma.
[2023-06-30] MEDS: MORPHINE SULFATE 2 MG/ML SYRINGE IM STA (07:44)
--- NOTE | 2023-06-30 07:44 | XR ---
Right elbow HISTORY: Pain following trauma COMPARISON: None. TECHNIQUE: 3 views of the right elbow were obtained. FINDINGS: There is no fracture, dislocation, intraosseous, intra-articular soft tissue abnormality. There is no joint effusion. IMPRESSION: No significant abnormality seen. No evidence of acute trauma.
[2023-06-30] MEDS: LIDOCAINE 4% PATCH TOPICAL ONE (07:46)
--- NOTE | 2023-06-30 07:46 | XR ---
Right hip. HISTORY: Pain following trauma COMPARISON: None. TECHNIQUE: 2 views of the right hip were obtained. FINDINGS: There is no fracture, dislocation, interosseous, intra-articular or soft tissue abnormality. There postsurgical changes involving the sacrum and right iliac bone. IMPRESSION: No acute trauma to the right hip.
--- NOTE | 2023-06-30 07:47 | XR ---
Right knee HISTORY: Pain following trauma. COMPARISON: None. TECHNIQUE: 3 views of the right knee were obtained. FINDINGS: There is no fracture, dislocation, intraosseous, intra-articular or soft tissue abnormality. There is no joint effusion. IMPRESSION: No acute trauma. No significant abnormality.
--- NOTE | 2023-06-30 07:48 | XR ---
Cervical spine. HISTORY: Pain following trauma. COMPARISON: None. TECHNIQUE: 5 views of the cervical spine were obtained. FINDINGS: The craniovertebral junction relationships and prevertebral soft tissues are normal. The cervical vertebral segments are normal in height and alignment and there is no fracture or sublux ation. The disc spaces are well-maintained in height and there is no significant degenerative disease. The neural foramina are patent. IMPRESSION: No evidence of acute trauma. No significant abnormality.
--- NOTE | 2023-06-30 07:52 | XR ---
Chest and right RIBS. HISTORY: Pain following trauma. COMPARISON: Chest dated 08/19/2021. TECHNIQUE: 5 views of the chest and right ribs were obtained. FINDINGS: There is mild fine interstitial opacity most likely representing chronic interstitial changes. There is no airspace consolidation. There is no pleural effusion or pneumothorax. There is mild elevation the right hemidiaphragm. There is a TENS unit in the lower thoracic spine. There is a healed right sixth rib fracture but no acute right rib fractures. IMPRESSION: 1. No acute right rib fractures. 2 no acute cardiopulmonary disease.
--- NOTE | 2023-06-30 09:14 | CT ---
EXAMINATION TYPE: CT hip RT wo con DATE OF EXAM: 06/30/2023 COMPARISON: None HISTORY: right hip pain CT DLP: 357.2 mGycm Automated exposure control for dose reduction was used. FINDINGS: There is no right hip fracture or dislocation. The right hemipelvis is intact. There are no focal int raosseous abnormalities. The soft tissues are unremarkable. IMPRESSION: NO EVIDENCE OF ACUTE TRAUMA TO THE RIGHT HIP.
[2023-06-30] MEDS: HYDROmorphone 0.5 MG/0.5 ML SYRINGE IM STA (09:15)
[2023-06-30] MEDS: ACET/COD 300 MG/30 MG STARTER PACK 6 TAB BTL PO STA (10:24)
[2023-06-30 11:05] VITALS: BP 97/65; PULSE 68; RESP 18; TEMP 97.8
== END 2023-06-30 10:30 | disposition home or self-care (01) ==
LOC: EC 06:50
DX: S51.011A Laceration without foreign body of right elbow, initial encounter (principal); S20.211A Contusion of right front wall of thorax, initial encounter; S60.211A Contusion of right wrist, initial encounter; M25.551 Pain in right hip; M25.561 Pain in right knee; M54.2 Cervicalgia; J44.9 Chronic obstructive pulmonary disease, unspecified; M19.90 Unspecified osteoarthritis, unspecified site; Z91.018 Allergy to other foods; Z91.041 Radiographic dye allergy status; Z88.8 Allergy status to other drugs, medicaments and biological substances; Z88.0 Allergy status to penicillin; Z88.2 Allergy status to sulfonamides; Z91.09 Other allergy status, other than to drugs and biological substances; Z88.6 Allergy status to analgesic agent; Z88.5 Allergy status to narcotic agent; Z91.010 Allergy to peanuts; Z87.891 Personal history of nicotine dependence; Z86.16 Personal history of COVID-19; Z79.51 Long term (current) use of inhaled steroids; Z79.899 Other long term (current) drug therapy; W18.2XXA Fall in (into) shower or empty bathtub, initial encounter; Y92.009 Unspecified place in unspecified non-institutional (private) residence as the place of occurrence of the external cause
CPT/HCPCS: 71101; 72050; 73502; 73080; 73110; 73562; 73700; 99284; 96372 ×3; J2270; J1885; J1170

== ENCOUNTER 2023-07-16 17:44 | Emergency (ER) | payer MEDICARE ==
--- NOTE | 2023-07-16 18:38 | ED ---
Recheck HPI - General Chief Complaint: Back Pain/Injury Stated Complaint: Groin pain, back pain Time Seen by Provider: 07/16/23 18:02 Source: patient, RN notes reviewed, old records reviewed Mode of arrival: ambulatory Limitations: no limitations - History of Present Illness Initial Comments: This is a 78-year-old male to the ER for evaluation of severe groin pain back pain flank pain significant. Patient has no travel history or sick contacts no traumatic injury. Has complaint of lower extremity pain and swelling MD Complaint: other (Severe pain) -: days(s) Returns Today for: Called Because of Abnormal Lab/Test, persistent/worsening pain related to initial visit Symptoms Since Prior Visit: no new symptoms Associated Symptoms: none Treatments Prior to Arrival: other (0) - Related Data Home Medications Medication Instructions Recorded Confirmed Albuterol Nebulized [Ventolin 2.5 mg INHALATION QID 08/16/21 05/08/23 Nebulized] Nitroglycerin Sl Tabs [Nitrostat] 0.4 mg SL Q5M PRN 08/16/21 05/08/23 Fluticasone/Umeclidin/Vilanter 1 puff INHALATION QAM 03/20/22 05/08/23 [Trelegy Ellipta 200-62.5-25] Omeprazole 20 mg PO DAILY 02/11/23 05/08/23 hydrOXYzine HCL [Atarax] 10 mg PO DAILY PRN 02/11/23 05/08/23 Losartan [Cozaar] 25 mg PO QAM 04/09/23 05/08/23 Previous Rx's Medication Instructions Recorded Sucralfate [Carafate] 1 gm PO TID #120 tablet 12/05/22 Aspirin 81 mg PO DAILY #30 tab 02/12/23 Ranolazine [Ranexa] 500 mg PO Q12HR #60 tab 02/12/23 Ketorolac [Toradol] 10 mg PO Q6HR PRN #15 tab 06/30/23 Lidocaine 5% Patch [Lidoderm 5% 1 patch TOPICAL DAILY PRN #30 patch 06/30/23 Patch] HYDROcodone/APAP 5-325MG [Ruston 1 tab PO Q6HR PRN #12 tab 07/16/23 5-325] Allergies Allergy/AdvReac Type Severity Reaction Status Date / Time banana Allergy Migraine Verified 07/16/23 17:56 celecoxib [From Celebrex] Allergy Rash/Hives Verified 07/16/23 17:56 Iodinated Contrast Media Allergy Anaphylaxis Verified 07/16/23 17:56 [Iodinated Contrast Media - IV Dye] iodine Allergy Anaphylaxis Verified 07/16/23 17:56 nystatin Allergy Rash/Hives, Verified 07/16/23 17:56 Swelling, Difficulty breathing Penicillins Allergy Anaphylaxis Verified 07/16/23 17:56 Sulfa (Sulfonamide Allergy See comment Verified 07/16/23 17:56 Antibiotics) triamcinolone Allergy Rash/Hives Verified 07/16/23 17:56 fentanyl AdvReac Severe SEVERE Verified 07/16/23 17:56 MIGRAINES adhesive AdvReac tears skin Verified 07/16/23 17:56 chocolate flavor AdvReac TRIGGERS Verified 07/16/23 17:56 MIGRAINE duloxetine [From Cymbalta] AdvReac Headaches Verified 07/16/23 17:56 gabapentin AdvReac Confusion Verified 07/16/23 17:56 Opioids - Morphine Analogues AdvReac Migraine Verified 07/16/23 17:56 Opioids-Meperidine and AdvReac Migraine Verified 07/16/23 17:56 Related peanut AdvReac TRIGGERS Verified 07/16/23 17:56 MIGRAINES tree nut [Nut] AdvReac HEADACHE Verified 07/16/23 17:56 yellow dye AdvReac HEADACHE Verified 07/16/23 17:56 Review of Systems ROS Statement: Those systems with pertinent positive or pertinent negative responses have been documented in the HPI. ROS Other: All systems not noted in ROS Statement are negative. Past Medical History Past Medical History: Cancer, Chest Pain / Angina, COPD, Hearing Disorder / Deafness, Osteoarthritis (OA) Additional Past Medical History / Comment(s): Difficulty swallowing. 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 "Broken Heart Syndrome". "Hx Covid, was on meds for 6 months, had cardiac cath and no issues since." Lower back stimulator. Encapsulated prostate - being watched. Hard of hearing. Last Myocardial Infarction Date:: 05/25/14 History of Any Multi-Drug Resistant Organisms: None Reported Past Surgical History: Adenoidectomy, Appendectomy, Back Surgery, Bowel Resection, Cholecystectomy, Heart Catheterization, Hernia Repair, Orthopedic Surgery, Tonsillectomy Additional Past Surgical History / Comment(s): Multiple EGD's, colonoscopy, cardiac cathetrization X2, several back surgeries including laminectomy, spinous process removed T11 and T12/cage/arturo, bilateral arthroscopic knee surgeries, bilateral thumb surgeries with right titanium joint, left rotator cuff repair, several nasal polypectomies, pain procedures - RFA cervical/back, bilateral inguinal hernia repairs, right orchiectomy, diaphragmatic hernia repair, section of sigmoid colon removed, back stimulator put in left hip for back pain at [facility], right hand surgery. Past Anesthesia/Blood Transfusion Reactions: No Reported Reaction Past Psychological History: No Psychological Hx Reported Smoking Status: Former smoker Past Alcohol Use History: None Reported Past Drug Use History: None Reported - Past Family History Father Family Medical History: Cancer Additional Family Medical History / Comment(s): Father of stomach cancer at the age of 65 yrs. Mother Family Medical History: No Reported History Additional Family Medical History / Comment(s): Mother of "old age". She was 83 yrs old. Brother(s) Family Medical History: Cancer, Diabetes Mellitus Additional Family Medical History / Comment(s): Brain tumor. Sister(s) Family Medical History: Cancer, Diabetes Mellitus Additional Family Medical History / Comment(s): Sisters breast cancer. General Exam Limitations: no limitations General appearance: alert, in no apparent distress Head exam: Present: atraumatic, normocephalic, normal inspection Eye exam: Present: normal appearance, PERRL, EOMI. Absent: scleral icterus, conjunctival injection, periorbital swelling ENT exam: Present: normal exam, mucous membranes moist Neck exam: Present: normal inspection. Absent: tenderness, meningismus, lymphadenopathy Respiratory exam: Present: normal lung sounds bilaterally. Absent: respiratory distress, wheezes, rales, rhonchi, stridor Cardiovascular Exam: Present: regular rate, normal rhythm, normal heart sounds. Absent: systolic murmur, diastolic murmur, rubs, gallop, clicks GI/Abdominal exam: Present: soft, normal bowel sounds. Absent: distended, tenderness, guarding, rebound, rigid Extremities exam: Present: normal inspection, full ROM, normal capillary refill. Absent: tenderness, pedal edema, joint swelling, calf tenderness Back exam: Present: normal inspection Neurological exam: Present: alert, oriented X3, CN II-XII intact Psychiatric exam: Present: normal affect, normal mood Skin exam: Present: warm, dry, intact, normal color. Absent: rash Course Vital Signs 07/16/23 07/16/23 17:53 22:07 Temperature 98.6 F 98.4 F Pulse Rate 83 75 Respiratory 18 18 Rate Blood Pressure 119/74 120/75 O2 Sat by Pulse 93 L 94 L Oximetry - Reevaluation(s) Reevaluation #1: Medical records reviewed Reevaluation #2: Patient remains asymptomatic Reevaluation #3: Patient informed of results questions answered Reevaluation #4: Was pt. sent in by a medical professional or institution (MIKE Aguilera, [employer], urgent care, hospital, or senior care...) When possible be specific @ -no Did you speak to anyone other than the patient for history (EMS, parent, family, police, friend...)? What history was obtained from this source @ -no Did you review nursing and triage notes (agree or disagree)? Why? @ -agree Are old charts reviewed (outside hosp., previous admission, EMS record, old EKG, old radiological studies, urgent care reports/EKG's, senior care records)? Report findings @ -yes Differential Diagnosis (chest pain, altered mental status, abdominal pain women, abdominal pain men, vaginal bleeding, weakness, fever, dyspnea, syncope, head ache, dizziness, GI bleed, back pain, seizure, CVA, palpatations, mental health, musculoskeletal)? @ -prior EKG interpreted by me (3pts min.). @ -yes X-rays interpreted by me (1pt min.). @ -no CT interpreted by me (1pt min.). @ -yes negative for acute disease U/S interpreted by me (1pt. min.). @ -yes negative for acute disease What testing was considered but not performed or refused? (CT, X-rays, U/S, labs)? Why? @ -none What meds were considered but not given or refused? Why? @ -none Did you discuss the management of the patient with other professionals (professionals i.e. MIKE Aguilera, [employer], lab, RT, psych nurse, social services analyst, sheet rock applicator, teacher, correctional officer captain, pillowcase cleaner)? Give summary @ -no Was smoking cessation discussed for >3mins.? @ -no Were there social determinants of health that impacted care today? How? (Homelessness, low income, unemployed, alcoholism, drug addiction, transportation, low edu. Level, literacy, decrease access to med. care, alf, rehab)? @ -none Was there de-escalation of care discussed even if they declined (Discuss DNR or withdrawal of care, Hospice)? DNR status @ -no What co-morbidities impacted this encounter? (DM, HTN, Smoking, COPD, CAD, Canc er, CVA, ARF, Chemo, Hep., AIDS, mental health diagnosis, sleep apnea, morbid obesity)? @ -none Was patient admitted / discharged? Hospital course, mention meds given and route, prescriptions, significant lab abnormalities, going to OR and other pertinent info. @ - 78 male to ER for chronic pain, hip pain back pain, pain well-controlled here in the ER able to ambulate can be discharged home neurological with no neurological findings or abnormalities Discharge Was critical care preformed (if so, how long)? @ -no Undiagnosed new problem with uncertain prognosis? @ -no Drug Therapy requiring intensive monitoring for toxicity (Heparin, Nitro, Insulin, Cardizem)? @ -no Were any procedures done? @ -no Diagnosis/symptom? @ -Acute lower back pain Acute, or Chronic, or Acute on Chronic? @ -Acute Uncomplicated (without systemic symptoms) or Complicated (systemic symptoms)? @ -Complicated Side effects of treatment? @ -no Exacerbation, Progression, or Severe Exacerbation? @ -exacerbation Poses a threat to life or bodily function? How? (Chest pain, USA, PR, pneumonia, PE, COPD, DKA, ARF, appy, cholecystitis, CVA, Diverticulitis, Homicidal, Suicidal, threat to staff... and all critical care pts) @ -yes extremes of age Medical Decision Making - Medical Decision Making 78 male to ER for chronic pain, hip pain back pain, pain well-controlled here in the ER able to ambulate can be discharged home neurological with no neurological findings or abnormalities - Radiology Data Radiology results: report reviewed (CT pelvis LS spine negative for acute disease ultrasound negative for DVT), image reviewed Disposition Clinical Impression: Right hip pain, Mid back pain, Mechanical back pain Disposition: HOME SELF-CARE Condition: Good Instructions (If sedation given, give patient instructions): Acute Low Back Pain (ED) Prescriptions: HYDROcodone/APAP 5-325MG [Ruston 5-325] 1 tab PO Q6HR PRN #12 tab PRN Reason: Pain Is patient prescribed a controlled substance at d/c from ED?: No Referrals: Lul Garcia MD [Primary Care Provider] - 1-2 days Time of Disposition: 20:40
[2023-07-16 18:39] VITALS: RESP 18
[2023-07-16] MEDS: HYDROmorphone 1 MG/ML 1 ML SYRINGE IM STA (19:18)
--- NOTE | 2023-07-16 19:27 | CT ---
EXAMINATION TYPE: CT lumbar spine wo con, CT pelvis wo con CT DLP: 752.2 (accession [id number]), 259.5 (accession [id number]) mGycm, Automated exposure control for dose reduction was used. DATE OF EXAM: 07/16/2023 7:07 PM COMPARISON: CT 06/30/2023. CLINICAL INDICATION:Male, 78 years old with history of pain; PHH, back pain following fall (accession [id number]), bilateral hip pain following fall (accession [id number]) TECHNIQUE: Multiple axial images were obtained from the midportion of T11 through the sacroiliac demi nts. Soft tissue and bone windows in coronal and sagittal planes were obtained and reviewed. 3-D ref ormats of the bones were created on a separate workstation and submitted for review. Axial imaging of the pelvis with sagittal coronal reformats. Contrast used: mL of , (None, if empty). Oral contrast used: (None, if empty). FINDINGS: Alignment: There are 5 lumbar type vertebral bodies within normal alignment. Bone: Fixation changes to L4-L5 and S1. Hardware appears intact and appropriate position. Grade 2 ant erolisthesis of L5 on S1. No evidence of fracture. Right iliac bone postsurgical change. Bilateral hi p degeneration with joint space narrowing and osteophyte formation. The femurs and bony pelvis are in tact. Discs: T12-L1: No spinal canal or neural foraminal stenosis is identified. L1-L2: No spinal canal or neural foraminal stenosis is identified. L2-L3: No spinal canal or neural foraminal stenosis is identified. L3-L4: Facet joint arthropathy and disc bulging result without spinal canal stenosis and mild bilater al neural foraminal stenosis. L4-L5: Facet joint arthropathy and disc bulging result without significant spinal canal stenosis or n eural foraminal stenosis. L5-S1: Grade 2 anterolisthesis. The neural foramen are mildly narrowed spinal canal is patent. Other: Nonobstructing left renal calculus measuring 5 mm. Scattered colonic diverticula. IMPRESSION: 1. No evidence for spinal there are pelvic fracture. 2. Mild to moderate degeneration changes of the hips. 3. No evidence for significant spinal canal stenosis within the limitations of exam. 4. Postsurgical changes of lower spine with hardware intact. 5. Nonobstructing left renal calculus. 6. Colonic diverticulosis.
--- NOTE | 2023-07-16 20:38 | US ---
EXAMINATION TYPE: US venous doppler duplex LE RT DATE OF EXAM: 07/16/2023 8:10 PM COMPARISON: NONE CLINICAL INDICATION: Male, 78 years old with history of dvt; Patient states groin pain. Also has leg bruising from fall for 2 weeks now on the lateral upper thigh. SIDE PERFORMED: Right TECHNIQUE: The lower extremity deep venous system is examined utilizing real time linear array sonog jae with graded compression, doppler sonography and color-flow sonography. VESSELS IMAGED: Common Femoral Vein Deep Femoral Vein Greater Saphenous Vein * Femoral Vein Popliteal Vein Small Saphenous Vein * Proximal Calf Veins (* superficial vessels) Right Leg: Negative for DVT. Area of bruising also imaged, no sonographic abnormalities seen at this time. IMPRESSION: Grayscale, color doppler, spectral doppler imaging performed of the deep veins of the lo wer extremities. There is normal flow, compressibility, vascular waveforms.
[2023-07-16 22:33] VITALS: BP 120/75; PULSE 75; TEMP 98.4
== END 2023-07-16 22:07 | disposition home or self-care (01) ==
LOC: EC 17:44
DX: K57.30 Diverticulosis of large intestine without perforation or abscess without bleeding (principal); N20.0 Calculus of kidney; M51.36 Other intervertebral disc degeneration, lumbar region; Z91.018 Allergy to other foods; Z91.041 Radiographic dye allergy status; Z88.0 Allergy status to penicillin; Z88.2 Allergy status to sulfonamides; Z88.6 Allergy status to analgesic agent; Z88.8 Allergy status to other drugs, medicaments and biological substances; Z91.010 Allergy to peanuts; Z87.891 Personal history of nicotine dependence; Z88.5 Allergy status to narcotic agent; Z88.1 Allergy status to other antibiotic agents
CPT/HCPCS: 93971; 72192; 72131; 99284; 96372; J1170

== ENCOUNTER → 2023-07-16 | Outpatient (CLI) | payer MEDICARE | END | disposition home or self-care (01) | LOC: RADUSWWP 08:00 | PROVIDERS: ATTEND Family Medicine | DX: Z53.9 Procedure and treatment not carried out, unspecified reason (principal) ==

== ENCOUNTER 2023-08-07 06:10 | Day surgery (SDC) | payer MEDICARE ==
[2023-08-05 15:22] VITALS: BMI 19.8
[2023-08-07 07:21] VITALS: TEMP 97.3
[2023-08-07] MEDS: IV FLUID CONTINUATION 1,000 ML IV ONE (07:30)
[2023-08-07] MEDS: LACTATED RINGERS 1,000 ML IV SCH (07:32)
[2023-08-07] MEDS: LIDOCAINE 1% (10MG/ML) FOR IV START INTRADERMA PRN (07:32)
--- NOTE | 2023-08-07 07:32 | P.GSHP ---
History of Present Illness H&P Date: 08/07/23 CHIEF COMPLAINT: Esophageal stricture HISTORY OF PRESENT ILLNESS: The patient is a 78-year-old male who presents reports dysphagia. Upper endoscopy was offered for further evaluation and management. PAST MEDICAL HISTORY: Please see list. PAST SURGICAL HISTORY: Please see list. MEDICATIONS: Please see list. ALLERGIES: Please see list. SOCIAL HISTORY: No illicit drug use FAMILY HISTORY: No reports of Crohn disease or ulcerative colitis. REVIEW OF ORGAN SYSTEMS: CONSTITUTIONAL: No reports of fevers or chills. GI: Denies any blood in stools or constipation. PHYSICAL EXAM: VITAL SIGNS: Stable GENERAL: Well-developed and pleasant in no acute distress. HEENT: No scleral icterus. Extraocular movements grossly intact. Moist buccal mucosa. NECK: Supple without lymphadenopathy. CHEST: Unlabored respirations. Equal bilateral excursions. CARDIOVASCULAR: Regular rate and rhythm. Distal 2+ pulses. ABDOMEN: Soft, nondistended. MUSCULOSKELETAL: No clubbing, cyanosis, or edema. ASSESSMENT: 1. Esophageal stricture PLAN: 1. Recommend proceeding with an upper endoscopy with rigid dilators. Past Medical History Past Medical History: Cancer, Chest Pain / Angina, COPD, GERD/Reflux, Hearing Disorder / Deafness, Osteoarthritis (OA) Additional Past Medical History / Comment(s): Difficulty swallowing. 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 "Broken Heart Syndrome". "Hx Covid, was on meds for 6 months, had cardiac cath and no issues since." Encapsulated prostate - being watched. Hard of hearing.Oxygen 2LNC at night only Last Myocardial Infarction Date:: 05/25/14 History of Any Multi-Drug Resistant Organisms: None Reported Past Surgical History: Adenoidectomy, Appendectomy, Back Surgery, Bowel Resection, Cholecystectomy, Heart Catheterization, Hernia Repair, Orthopedic Surgery, Tonsillectomy Additional Past Surgical History / Comment(s): Multiple EGD's, colonoscopy, cardiac cathetrization X2, several back surgeries including laminectomy, spinous process removed T11 and T12/cage/arturo, bilateral arthroscopic knee surgeries, bilateral thumb surgeries with right titanium joint, left rotator cuff repair, several nasal polypectomies, pain procedures - RFA cervical/back, bilateral inguinal hernia repairs, right orchiectomy, diaphragmatic hernia repair, section of sigmoid colon removed, back stimulator put in left hip for back pain at [facility], right hand surgery. Past Anesthesia/Blood Transfusion Reactions: No Reported Reaction Additional Past Anesthesia/Blood Transfusion Reaction / Comment(s): no blood transfusion Smoking Status: Former smoker - Past Family History Father Family Medical History: Cancer Additional Family Medical History / Comment(s): Father of stomach cancer at the age of 65 yrs. Mother Family Medical History: No Reported History Additional Family Medical History / Comment(s): Mother of "old age". She was 83 yrs old. Brother(s) Family Medical History: Cancer, Diabetes Mellitus Additional Family Medical History / Comment(s): Brain tumor. Sister(s) Family Medical History: Cancer, Diabetes Mellitus Additional Family Medical History / Comment(s): Sisters breast cancer. Medications and Allergies Home Medications Medication Instructions Recorded Confirmed Type Albuterol Nebulized [Ventolin 2.5 mg INHALATION QID 08/16/21 08/07/23 History Nebulized] Nitroglycerin Sl Tabs [Nitrostat] 0.4 mg SL Q5M PRN 08/16/21 08/07/23 History Fluticasone/Umeclidin/Vilanter 1 puff INHALATION QAM 03/20/22 08/07/23 History [Trelegy Ellipta 200-62.5-25] Sucralfate [Carafate] 1 gm PO TID #120 tablet 12/05/22 08/07/23 Rx hydrOXYzine HCL [Atarax] 10 mg PO DAILY PRN 02/11/23 08/07/23 History Aspirin 81 mg PO DAILY #30 tab 02/12/23 08/07/23 Rx Losartan [Cozaar] 25 mg PO QAM 04/09/23 08/07/23 History Ketorolac [Toradol] 10 mg PO Q6HR PRN #15 tab 06/30/23 08/07/23 Rx Omeprazole [PriLOSEC] 20 mg PO AC-BRKFST 08/05/23 08/07/23 History Allergies Allergy/AdvReac Type Severity Reaction Status Date / Time celecoxib [From Celebrex] Allergy Rash/Hives Verified 08/07/23 07:21 Iodinated Contrast Media Allergy Anaphylaxis Verified 08/07/23 07:21 [Iodinated Contrast Media - IV Dye] iodine Allergy Anaphylaxis Verified 08/07/23 07:21 nystatin Allergy Rash/Hives, Verified 08/07/23 07:21 Swelling, Difficulty breathing Penicillins Allergy Anaphylaxis Verified 08/07/23 07:21 Sulfa (Sulfonamide Allergy See comment Verified 08/07/23 07:21 Antibiotics) triamcinolone Allergy Rash/Hives Verified 08/07/23 07:21 fentanyl AdvReac Severe SEVERE Verified 08/07/23 07:21 MIGRAINES adhesive AdvReac tears skin Verified 08/07/23 07:21 chocolate flavor AdvReac TRIGGERS Verified 08/07/23 07:21 MIGRAINE duloxetine [From Cymbalta] AdvReac Headaches Verified 08/07/23 07:21 gabapentin AdvReac Confusion Verified 08/07/23 07:21 Opioids - Morphine Analogues AdvReac Migraine Verified 08/07/23 07:21 Opioids-Meperidine and AdvReac Migraine Verified 08/07/23 07:21 Related peanut AdvReac TRIGGERS Verified 08/07/23 07:21 MIGRAINES tree nut [Nut] AdvReac HEADACHE Verified 08/07/23 07:21 yellow dye AdvReac HEADACHE Verified 08/07/23 07:21 Surgical - Exam Vital Signs Temp Pulse Resp BP Pulse Ox 97.3 F L 68 20 165/79 93 L 08/07/23 07:20 08/07/23 07:20 08/07/23 07:20 08/07/23 07:20 08/07/23 07:20
[2023-08-07] MEDS ORDERED: LIDOCAINE 1% INJ 10MG/ML (20 ML MDV) ONE (07:44)
[2023-08-07] MEDS ORDERED: PROPOFOL 10 MG/ML 20 ML VIAL IV ONE (07:44)
[2023-08-07 08:08] VITALS: RESP 16
--- NOTE | 2023-08-07 08:12 | P.PCN ---
Date of Procedure: 08/07/23 Description of Procedure: PREOPERATIVE DIAGNOSIS: Dysphagia. Presbyesophagus Upper esophageal stenosis POSTOPERATIVE DIAGNOSIS: Dysphagia. Presbyesophagus Upper esophageal stenosis OPERATION: Esophagogastroduodenoscopy with rigid dilator over the guidewire 60 Fr. SURGEON: Bonnie Padilla MD ANESTHESIA: MAC. INDICATIONS: The patient is a 78-year-old male who presents with esophageal obstruction and dysphagia. Benefits and risks of the procedure were described. Informed consent was obtained. DESCRIPTION: The patient was brought into the endoscopy suite and laid in the left lateral decubitus position. After a timeout was confirmed, the procedure was initiated. An Olympus gastroscope was passed and the stomach was entered. Chronic gastritis was identified. The scope was advanced to the duodenum which was unremarkable. Next using an Georgian rigid dilator, a guidewire was placed through the pediatric gastroscope. Next the scope was withdrawn. A 60-Croatian rigid Georgian dilator was passed carefully along the posterior oropharynx to 40 cm and left in place for 2-3 minutes stretch. The dilator was withdrawn including the guidewire. The scope was reentered along the posterior oropharynx with no findings of full-thickness tear of the upper esophageal sphincter. No full-thickness injury was encountered. The GI tract was desufflated. The patient tolerated the procedure well. FINDINGS: Squamocolumnar junction unremarkable at 38 cm. Presbyesophagus for esophageal dysmotility Georgian rigid dilator 60-Croatian completed. No recurrent hiatal hernia Hill grade 1 lower esophageal valve. LA grade A esophagitis. Gastroparesis with retained food RECOMMENDATIONS: Next upper endoscopy 4 weeks with dilation Plan - Discharge Summary Discharge Rx Participant: No New Discharge Prescriptions: Continue Albuterol Nebulized [Ventolin Nebulized] 2.5 mg INHALATION QID Sucralfate [Carafate] 1 gm PO TID #120 tablet Aspirin 81 mg PO DAILY #30 tab Omeprazole [PriLOSEC] 20 mg PO AC-BRKFST Nitroglycerin Sl Tabs [Nitrostat] 0.4 mg SL Q5M PRN PRN Reason: Chest Pain Fluticasone/Umeclidin/Vilanter [Trelegy Ellipta 200-62.5-25] 1 puff INHALATION QAM hydrOXYzine HCL [Atarax] 10 mg PO DAILY PRN PRN Reason: Itching Losartan [Cozaar] 25 mg PO QAM Discontinued Ketorolac [Toradol] 10 mg PO Q6HR PRN #15 tab PRN Reason: Pain Discharge Medication List Albuterol Nebulized [Ventolin Nebulized] 2.5 mg INHALATION QID 08/16/21 [History] Nitroglycerin Sl Tabs [Nitrostat] 0.4 mg SL Q5M PRN 08/16/21 [History] Fluticasone/Umeclidin/Vilanter [Trelegy Ellipta 200-62.5-25] 1 puff INHALATION QAM 03/20/22 [History] Sucralfate [Carafate] 1 gm PO TID #120 tablet 12/05/22 [Rx] hydrOXYzine HCL [Atarax] 10 mg PO DAILY PRN 02/11/23 [History] Aspirin 81 mg PO DAILY #30 tab 02/12/23 [Rx] Losartan [Cozaar] 25 mg PO QAM 04/09/23 [History] Omeprazole [PriLOSEC] 20 mg PO AC-BRKFST 08/05/23 [History] Follow up Appointment(s)/Referral(s): Bonnie Padilla MD [STAFF PHYSICIAN] - 09/03/23 1:00 pm Patient Instructions/Handouts: Esophageal Dilation (DC) Activity/Diet/Wound Care/Special Instructions: Warm beverages today. Recommend high calorie beverages such as [employer] Discharge Disposition: HOME SELF-CARE
[2023-08-07 08:24] VITALS: BP 128/72; PULSE 63
== END 2023-08-07 08:54 | disposition home or self-care (01) ==
LOC: ORWHC2ENDO 06:10
PROVIDERS: ATTEND Surgery Plastic and Reconstructive Surgery
DX: K22.2 Esophageal obstruction (principal); K21.00 Gastro-esophageal reflux disease with esophagitis, without bleeding; K31.84 Gastroparesis; J44.9 Chronic obstructive pulmonary disease, unspecified; Z85.51 Personal history of malignant neoplasm of bladder; Z88.0 Allergy status to penicillin; Z91.041 Radiographic dye allergy status; Z88.3 Allergy status to other anti-infective agents; Z88.5 Allergy status to narcotic agent; Z91.09 Other allergy status, other than to drugs and biological substances; Z88.8 Allergy status to other drugs, medicaments and biological substances; Z91.010 Allergy to peanuts; Z91.018 Allergy to other foods; Z88.2 Allergy status to sulfonamides; Z87.891 Personal history of nicotine dependence; Z79.82 Long term (current) use of aspirin; Z79.899 Other long term (current) drug therapy; Z79.51 Long term (current) use of inhaled steroids
CPT/HCPCS: 43248; J2001; J2704

== ENCOUNTER 2023-10-09 06:30 | Day surgery (SDC) | payer MEDICARE ==
[2023-10-09] MEDS ORDERED: PROPOFOL 10 MG/ML 20 ML VIAL IV ONE (09:03)
[2023-10-09] MEDS ORDERED: LIDOCAINE 1% INJ 10MG/ML (20 ML MDV) ONE (09:03)
== END 2023-10-09 10:10 ==
LOC: ORWHC2ENDO 06:30
PROVIDERS: ATTEND Surgery Plastic and Reconstructive Surgery
DX: K22.2 Esophageal obstruction
CPT/HCPCS: 43248

== ENCOUNTER 2023-10-31 19:13 | Observation (INO) | payer MEDICARE ==
--- NOTE | 2023-10-31 19:59 | ED ---
General Adult HPI - General Source: patient, RN notes reviewed, old records reviewed Mode of arrival: ambulatory Limitations: no limitations <Yogesh El - Last Filed: 10/31/23 20:50> <Yogesh Pereira - Last Filed: 11/02/23 22:56> - General Chief complaint: Chest Pain Stated complaint: chest pain Time Seen by Provider: 10/31/23 19:35 - History of Present Illness Initial comments: This is a 78-year-old male with a past medical history significant for COPD. Patient states he also states he had a coronary catheterization and was told he had very small vessels so medical management would be what he would be doing any states after that he was doing much better but more recently over the last week he has been starting to get chest pain which radiates to his right shoulder makes him short of breath and nitroglycerin does relieve the pain as does Wrist. Patient states that been getting progressively worse over the week and today when he walked out to the mailbox his chest pain was significant and much worse than it had been before and he decided he needed to come to the hospital to be seen. Patient currently is complaining of just mild chest pain at this time. (Yogesh El) - Related Data Home Medications Medication Instructions Recorded Confirmed Albuterol Nebulized [Ventolin 2.5 mg INHALATION RT-QID 08/16/21 11/01/23 Nebulized] Nitroglycerin Sl Tabs [Nitrostat] 0.4 mg SL Q5M PRN 08/16/21 11/01/23 Fluticasone/Umeclidin/Vilanter 1 puff INHALATION RT-DAILY 03/20/22 11/01/23 [Trelegy Ellipta 200-62.5-25] hydrOXYzine HCL [Atarax] 10 mg PO HS PRN 02/11/23 11/01/23 Losartan [Cozaar] 25 mg PO QAM 04/09/23 11/01/23 Albuterol Sulfate [Ventolin HFA] 1 - 2 puff INHALATION RT-Q6H PRN 11/01/23 11/01/23 Ammonium Lactate Cream [Lac-Hydrin 1 applic TOPICAL BID 11/01/23 11/01/23 12% Cream] Omeprazole [PriLOSEC] 40 mg PO DAILY 11/01/23 11/01/23 Pimecrolimus 1 applic TOPICAL BID 11/01/23 11/01/23 Sucralfate [Carafate] 1 gm PO TID PRN 11/01/23 11/01/23 metroNIDAZOLE 0.75% CREAM 1 applic TOPICAL BID 11/01/23 11/01/23 [Metrocream 0.75%] traMADol HCl [Ultram] 50 mg PO Q6H PRN 11/01/23 11/01/23 Previous Rx's Medication Instructions Recorded Aspirin 81 mg PO DAILY #30 tab 02/12/23 Budesonide/Formoterol Fumarate 2 puff INHALATION BID #1 each 11/01/23 [Symbicort 80-4.5 Mcg Inhaler] Allergies Allergy/AdvReac Type Severity Reaction Status Date / Time celecoxib [From Celebrex] Allergy Rash/Hives Verified 11/01/23 07:04 Iodinated Contrast Media Allergy Anaphylaxis Verified 11/01/23 07:04 [Iodinated Contrast Media - IV Dye] iodine Allergy Anaphylaxis Verified 11/01/23 07:04 nystatin Allergy Rash/Hives, Verified 11/01/23 07:04 Swelling, Difficulty breathing Penicillins Allergy Anaphylaxis Verified 11/01/23 07:04 Sulfa (Sulfonamide Allergy See comment Verified 11/01/23 07:04 Antibiotics) triamcinolone Allergy Rash/Hives Verified 11/01/23 07:04 fentanyl AdvReac Severe SEVERE Verified 11/01/23 07:04 MIGRAINES adhesive AdvReac tears skin Verified 11/01/23 07:04 chocolate flavor AdvReac TRIGGERS Verified 11/01/23 07:04 MIGRAINE duloxetine [From Cymbalta] AdvReac Headaches Verified 11/01/23 07:04 gabapentin AdvReac Confusion Verified 11/01/23 07:04 Opioids - Morphine Analogues AdvReac Migraine Verified 11/01/23 07:04 Opioids-Meperidine and AdvReac Migraine Verified 11/01/23 07:04 Related peanut AdvReac TRIGGERS Verified 11/01/23 07:04 MIGRAINES tree nut [Nut] AdvReac HEADACHE Verified 11/01/23 07:04 yellow dye AdvReac HEADACHE Verified 11/01/23 07:04 Review of Systems ROS Other: All systems not noted in ROS Statement are negative. <Yogesh El - Last Filed: 10/31/23 20:50> ROS Other: All systems not noted in ROS Statement are negative. <OdalisgisellaYogesh Garth - Last Filed: 11/02/23 22:56> ROS Statement: Those systems with pertinent positive or pertinent negative responses have been documented in the HPI. Past Medical History Past Medical History: Cancer, Chest Pain / Angina, COPD, Hearing Disorder / Deafness, Osteoarthritis (OA) Additional Past Medical History / Comment(s): Difficulty swallowing. 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 "Broken Heart Syndrome". "Hx Covid, was on meds for 6 months, had cardiac cath and no issues since." Lower back stimulator. Encapsulated prostate - being watched. Hard of hearing. Last Myocardial Infarction Date:: 05/25/14 History of Any Multi-Drug Resistant Organisms: None Reported Past Surgical History: Adenoidectomy, Appendectomy, Back Surgery, Bowel Resection, Cholecystectomy, Heart Catheterization, Hernia Repair, Orthopedic Surgery, Tonsillectomy Additional Past Surgical History / Comment(s): Multiple EGD's, colonoscopy, cardiac cathetrization X2, several back surgeries including laminectomy, spinous process removed T11 and T12/cage/arturo, bilateral arthroscopic knee surgeries, bilateral thumb surgeries with right titanium joint, left rotator cuff repair, several nasal polypectomies, pain procedures - RFA cervical/back, bilateral inguinal hernia repairs, right orchiectomy, diaphragmatic hernia repair, section of sigmoid colon removed, back stimulator put in left hip for back pain at [facility], right hand surgery. Past Anesthesia/Blood Transfusion Reactions: No Reported Reaction Past Psychological History: No Psychological Hx Reported Smoking Status: Former smoker - Past Family History Father Family Medical History: Cancer Additional Family Medical History / Comment(s): Father of stomach cancer at the age of 65 yrs. Mother Family Medical History: No Reported History Additional Family Medical History / Comment(s): Mother of "old age". She was 83 yrs old. Brother(s) Family Medical History: Cancer, Diabetes Mellitus Additional Family Medical History / Comment(s): Brain tumor. Sister(s) Family Medical History: Cancer, Diabetes Mellitus Additional Family Medical History / Comment(s): Sisters breast cancer. <Yogesh El - Last Filed: 10/31/23 20:50> General Exam Limitations: no limitations <Yogesh El - Last Filed: 10/31/23 20:50> General appearance: alert, in no apparent distress Head exam: Present: atraumatic, normocephalic, normal inspection Eye exam: Present: normal appearance, PERRL, EOMI. Absent: scleral icterus, conjunctival injection, periorbital swelling ENT exam: Present: normal exam, mucous membranes moist Neck exam: Present: normal inspection. Absent: tenderness, meningismus, lymphadenopathy Respiratory exam: Present: normal lung sounds bilaterally. Absent: respiratory distress, wheezes, rales, rhonchi, stridor Cardiovascular Exam: Present: regular rate, normal rhythm, normal heart sounds. Absent: systolic murmur, diastolic murmur, rubs, gallop, clicks GI/Abdominal exam: Present: soft, normal bowel sounds. Absent: distended, tenderness, guarding, rebound, rigid Extremities exam: Present: normal inspection, full ROM, normal capillary refill. Absent: tenderness, pedal edema, joint swelling, calf tenderness Back exam: Present: normal inspection Neurological exam: Present: alert, oriented X3, CN II-XII intact Psychiatric exam: Present: normal affect, normal mood Skin exam: Present: warm, dry, intact, normal color. Absent: rash <Yogesh Pereira - Last Filed: 11/02/23 22:56> - General Exam Comments Initial Comments: GENERAL: Patient is well-developed and well-nourished. Patient is nontoxic and well- hydrated and is in mild distress. ENT: Neck is soft and supple. No significant lymphadenopathy is noted. Oropharynx is clear. Moist mucous membranes. Neck has full range of motion without elicit ing any pain. EYES: The sclera were anicteric and conjunctiva were pink and moist. Extraocular m ovements were intact and pupils were equal round and reactive to light. Eyelids were unremarkable. PULMONARY: Unlabored respirations. Good breath sounds bilaterally. No audible rales rhonchi or wheezing was noted. CARDIOVASCULAR: There is a regular rate and rhythm without any murmurs gallops or rubs. ABDOMEN: Soft and nontender with normal bowel sounds. SKIN: Skin is clear with no lesions or rashes and otherwise unremarkable. NEUROLOGIC: Patient is alert and oriented x3. Cranial nerves II through XII are grossly intact. Motor and sensory are also intact. Normal speech, volume and content. Symmetrical smile. MUSCULOSKELETAL: Normal extremities with adequate strength and full range of motion. LYMPHATICS: No significant lymphadenopathy is noted PSYCHIATRIC: Normal psychiatric evaluation. (Yogesh El) Course <Yogesh Pereira - Last Filed: 11/02/23 22:56> Vital Signs 10/31/23 10/31/23 10/31/23 19:23 20:30 21:00 Temperature 97.8 F Pulse Rate 96 90 84 Pulse Rate [ Room Worker ] Respiratory 18 18 16 Rate Blood Pressure 121/74 127/87 132/66 Blood Pressure [Left Arm] O2 Sat by Pulse 92 L 95 94 L Oximetry 10/31/23 10/31/23 10/31/23 22:00 23:09 23:19 Temperature Pulse Rate 79 77 80 Pulse Rate [ Room Worker ] Respiratory 19 Rate Blood Pressure 132/72 Blood Pressure [Left Arm] O2 Sat by Pulse 96 Oximetry 11/01/23 11/01/23 00:00 04:07 Temperature Pulse Rate 83 Pulse Rate [ 76 Room Worker ] Respiratory 13 18 Rate Blood Pressure 128/72 Blood Pressure 126/66 [Left Arm] O2 Sat by Pulse 96 98 Oximetry - Reevaluation(s) Reevaluation #1: 10/31/23 23:18 Medical records reviewed (Yogesh Pereira) Reevaluation #2: 10/31/23 23:18 Patient remains with chest pain though improved with nitro (Yogesh Pereira) Reevaluation #3: 10/31/23 23:18 Patient informed of results questions answered (Yogesh Pereira) Reevaluation #4: Differential Chest Pain: Stable Angina, Unstable Angina, STEMI, NSTEMI Aortic Dissection, Pneumothorax, Musculoskeletal, Esophageal Spasm GERD, Cholecystitis, Pancreatitis, Zoster, this is not meant to be an all-inclusive list. (Yogesh Pereira) - Consultations Consultation #1: Spoke with who will admit this patient (Yogesh Pereira) Medical Decision Making <Yogesh El - Last Filed: 10/31/23 20:50> - Lab Data Result diagrams: 10/31/23 20:42 10/31/23 20:42 - Radiology Data Radiology results: report reviewed (CXR is Negative for acute disease, CTA from earlier in the day is negative for PE), image reviewed <Yogesh Pereira - Last Filed: 11/02/23 22:56> - Medical Decision Making EKG is interpreted by myself. EKG shows a sinus rhythm at 96 bpm parables 170 QRS 129 QT interval 359 QTc is 412. Patient has a right bundle branch block. Patient's EKG shows no ST segment ovation or depression. Was pt. sent in by a medical professional or institution (, MIKE, TELEVISION MAINTENANCE MAN, urgent care, hospital, or snf...) When possible be specific @ -[No] Did you speak to anyone other than the patient for history (EMS, parent, family, police, friend...)? What history was obtained from this source @ -[No] Did you review nursing and triage notes (agree or disagree)? Why? @ -[I reviewed and agree with nursing and triage notes] Were old charts reviewed (outside hosp., previous admission, EMS record, old EKG, old radiological studies, urgent care reports/EKG's, snf records)? Report findings @ -[No old charts were reviewed] Differential Diagnosis? @ -Differential Chest Pain: Stable Angina, Unstable Angina, STEMI, NSTEMI Aortic Dissection, Pneumothorax, Musculoskeletal, Esophageal Spasm GERD, Cholecystitis, Pancreatitis, Zoster, this is not meant to be an all-inclusive list. EKG interpreted by me (3pts min.). @ -[As above] X-rays interpreted by me (1pt min.). @ -[None done] CT interpreted by me (1pt min.). @ -[None done] U/S interpreted by me (1pt. min.). @ -[None done] What testing was considered but not performed or refused? (CT, X-rays, U/S, labs)? Why? @ -[None] What meds were considered but not given or refused? Why? @ -[None] Did you discuss the management of the patient with other professionals ( professionals i.e. , MIKE, TELEVISION MAINTENANCE MAN, lab, RT, psych nurse, social services counselor, silk screen processor, teacher, chief risk officer, case investigator)? Give summary @ -[No] Was smoking cessation discussed for >3mins.? @ -[No] Was critical care preformed (if so, how long)? @ -[No] Were there social determinants of health that impacted care today? How? (Homelessness, low income, unemployed, alcoholism, drug addiction, transportation, low edu. Level, literacy, decrease access to med. care, nursing home, rehab)? @ -[No] Was there de-escalation of care discussed even if they declined (Discuss DNR or withdrawal of care, Hospice)? DNR status @ -[No] What co-morbidities impacted this encounter? (DM, HTN, Smoking, COPD, CAD, Cancer, CVA, ARF, Chemo, Hep., AIDS, mental health diagnosis, sleep apnea, morbid obesity)? @ -[None] Was patient admitted / discharged? Hospital course, mention meds given and route, prescriptions, significant lab abnormalities, going to OR and other pertinent info. @ -Patient's care will be taken over by Dr. Pereira at 9 PM (Yogesh El) 78 male with COPD chest pain will admit for chest pain observation (Yogesh Pereira) - Lab Data Lab Results 10/31/23 10/31/23 10/31/23 Range/Units 20:42 20:42 20:42 WBC 11.7 H (3.8-10.6) k/uL RBC 4.32 (4.30-5.90) m/uL Hgb 13.8 (13.0-17.5) gm/dL Hct 41.8 (39.0-53.0) % MCV 96.8 (80.0-100.0) fL MCH 32.0 (25.0-35.0) pg MCHC 33.1 (31.0-37.0) g/dL RDW 14.4 (11.5-15.5) % Plt Count 321 (150-450) k/uL MPV 7.6 Neutrophils % 88 % Lymphocytes % 6 % Monocytes % 5 % Eosinophils % 0 % Basophils % 0 % Neutrophils # 10.3 H (1.3-7.7) k/uL Lymphocytes # 0.7 L (1.0-4.8) k/uL Monocytes # 0.6 (0-1.0) k/uL Eosinophils # 0.0 (0-0.7) k/uL Basophils # 0.0 (0-0.2) k/uL PT 10.3 (10.0-12.5) sec INR 0.9 (<1.2) APTT 24.8 (22.0-30.0) sec Sodium 132 L (137-145) mmol/L Potassium 4.6 (3.5-5.1) mmol/L Chloride 99 (98-107) mmol/L Carbon Dioxide 22 (22-30) mmol/L Anion Gap 11 mmol/L BUN 19 (9-20) mg/dL Creatinine 0.65 L (0.66-1.25) mg/dL Est GFR (CKD-EPI)AfAm >90 (>60 ml/min/1.73 sqM) Est GFR (CKD-EPI)NonAf >90 (>60 ml/min/1.73 sqM) Glucose 145 H (74-99) mg/dL Calcium 9.6 (8.4-10.2) mg/dL Magnesium 2.0 (1.6-2.3) mg/dL Total Bilirubin 0.6 (0.2-1.3) mg/dL AST 28 (17-59) U/L ALT 17 (4-49) U/L Alkaline Phosphatase 84 (38-126) U/L Troponin I (0.000-0.034) ng/mL Total Protein 6.9 (6.3-8.2) g/dL Albumin 4.2 (3.5-5.0) g/dL 10/31/23 Range/Units 20:42 WBC (3.8-10.6) k/uL RBC (4.30-5.90) m/uL Hgb (13.0-17.5) gm/dL Hct (39.0-53.0) % MCV (80.0-100.0) fL MCH (25.0-35.0) pg MCHC (31.0-37.0) g/dL RDW (11.5-15.5) % Plt Count (150-450) k/uL MPV Neutrophils % % Lymphocytes % % Monocytes % % Eosinophils % % Basophils % % Neutrophils # (1.3-7.7) k/uL Lymphocytes # (1.0-4.8) k/uL Monocytes # (0-1.0) k/uL Eosinophils # (0-0.7) k/uL Basophils # (0-0.2) k/uL PT (10.0-12.5) sec INR (<1.2) APTT (22.0-30.0) sec Sodium (137-145) mmol/L Potassium (3.5-5.1) mmol/L Chloride (98-107) mmol/L Carbon Dioxide (22-30) mmol/L Anion Gap mmol/L BUN (9-20) mg/dL Creatinine (0.66-1.25) mg/dL Est GFR (CKD-EPI)AfAm (>60 ml/min/1.73 sqM) Est GFR (CKD-EPI)NonAf (>60 ml/min/1.73 sqM) Glucose (74-99) mg/dL Calcium (8.4-10.2) mg/dL Magnesium (1.6-2.3) mg/dL Total Bilirubin (0.2-1.3) mg/dL AST (17-59) U/L ALT (4-49) U/L Alkaline Phosphatase (38-126) U/L Troponin I <0.012 (0.000-0.034) ng/mL Total Protein (6.3-8.2) g/dL Albumin (3.5-5.0) g/dL Disposition <Yogesh El - Last Filed: 10/31/23 20:50> Is patient prescribed a controlled substance at d/c from ED?: No Time of Disposition: 23:30 <Yogesh Pereira - Last Filed: 11/02/23 22:56> Clinical Impression: Atypical chest pain, Altered mental status Disposition: ADMITTED IP TO THIS HOSP Condition: Fair
[2023-10-31] MEDS: NITROGLYCERIN OINT 1 INCH/GM PACKET TOPICAL STA (20:40)
[2023-10-31] MEDS: ASPIRIN 81 MG PO STA (20:40)
[2023-10-31] MEDS: SODIUM CHLORIDE 0.9% 500 ML 500 ML IV STA (20:40)
[2023-10-31 20:58] LABS: HCT 41.8 % (39.0-53.0); HGB 13.8 gm/dL (13.0-17.5); MCV 96.8 fL (80.0-100.0); RBC 4.32 m/uL (4.30-5.90); WBC 11.7 k/uL (3.8-10.6)
[2023-10-31 20:59] LABS: Basophils % (A) 0 %; Eosinophils % (A) 0 %; Lymphocytes # (A) 0.7 k/uL (1.0-4.8); Lymphocytes % (A) 6 %; MCHC 33.1 g/dL (31.0-37.0); Mean Platelet Volume 7.6; Monocytes # (A) 0.6 k/uL (0-1.0); Monocytes % (A) 5 %; Neutrophils # (A) 10.3 k/uL (1.3-7.7); Neutrophils % (A) 88 %; Platelet Count 321 k/uL (150-450); RDW 14.4 % (11.5-15.5)
[2023-10-31 21:11] LABS: INR 0.9 (<1.2); Partial Thromboplastin Time 24.8 sec (22.0-30.0); Prothrombin Time 10.3 sec (10.0-12.5)
[2023-10-31 21:13] LABS: ALT 17 U/L (4-49); African American GFR (CKD) >90 (>60 ml/min/1.73 sqM); Albumin 4.2 g/dL (3.5-5.0); Anion Gap 11 mmol/L; Blood Urea Nitrogen 19 mg/dL (9-20); Calcium 9.6 mg/dL (8.4-10.2); Carbon Dioxide 22 mmol/L (22-30); Chloride 99 mmol/L (98-107); Glucose 145 mg/dL (74-99); Non-African American GFR(CKD) >90 (>60 ml/min/1.73 sqM); Sodium 132 mmol/L (137-145); Total Bilirubin 0.6 mg/dL (0.2-1.3); Total Protein 6.9 g/dL (6.3-8.2)
[2023-10-31 21:15] LABS: AST 28 U/L (17-59); Alkaline Phosphatase 84 U/L (38-126); Potassium 4.6 mmol/L (3.5-5.1)
--- NOTE | 2023-10-31 21:50 | XR ---
EXAMINATION TYPE: XR chest 2V DATE OF EXAM: 10/31/2023 COMPARISON: 06/30/2023 INDICATION: Chest pain TECHNIQUE: Frontal and lateral views of the chest are obtained. FINDINGS: The heart size is normal. The pulmonary vasculature is normal. The lungs are clear. There is an increased AP diameter and increased retrosternal airspace. Correlat e for senile emphysematous changes. Note is made of loops of bowel containing air and lateral to the liver under the right diaphragm. IMPRESSION: 1. No acute pulmonary process. 2. COPD
[2023-10-31] MEDS ORDERED: IPRATROPIUM-ALBUTEROL 3 ML NEB INHALATION PRN (22:44)
[2023-10-31] MEDS ORDERED: MORPHINE SULFATE 4 MG/ML SYRINGE IVP PRN (22:44)
[2023-10-31] MEDS: MORPHINE SULFATE 4 MG/ML SYRINGE IVP STA (22:59)
[2023-10-31] MEDS: IPRATROPIUM-ALBUTEROL 3 ML NEB INHALATION STA (23:09)
[2023-10-31] MEDS ORDERED: NALOXONE 0.4 MG/ML 1 ML VIAL IV PRN (23:16)
[2023-10-31] MEDS ORDERED: ONDANSETRON 4 MG/2 ML VIAL IVP PRN (23:16)
[2023-10-31] MEDS: KETOROLAC 15 MG/ML 1 ML VIAL IVP STA (23:33)
[2023-10-31] MEDS: diphenhydrAMINE 50 MG/ML 1 ML VIAL IVP STA (23:34)
[2023-10-31] MEDS: PROCHLORPERAZINE INJ 10 MG/2 ML VIAL IVP STA (23:34)
[2023-10-31] MEDS: SODIUM CHLORIDE 0.9% 1,000 ML IV SCH (23:36)
--- NOTE | 2023-11-01 02:49 | P.CNPUL ---
History of Present Illness Consult date: 11/01/23 Requesting physician: Yogesh Pereira Reason for consult: COPD Chief complaint: Chest pain History of present illness: Patient is a 70 male with past medical history significant for chronic obstructive pulmonary disease, with an FEV1 40% of predicted. He does follow in the pulmonary office with Dr. Medrano. Maintained on Trelegy inhaler and albuterol nebs. He also wears 2 L nasal cannula at bedtime. Also has history of hernia, diaphragmatic paralysis status post plication. He is chronic dysphagia and esophageal strictures and undergoes esophageal dilation every 4-6 weeks. Of note, a few weeks ago he was having ongoing issues with shortness of breath, chest tightness, chest congestion, and sputum production. Treated previously by his PCP with a Z-Duran and steroid taper. Patient recently seen in the pulmonary office on 10/22/2023, COPD felt to be stable at that time. Now pr esents to the emergency department last night with chest pain. Lateralized to the left chest. Nonradiating. Initially rated 10/10. Associated symptoms including shortness of breath. Denies nausea, vomiting, diaphoresis. No heart palpitations or syncopal events. This originally occurred while walking out to get the mail. Once back in the house, improved when placing his home O2 on. Also, took 2 nitro tablets by 5 minutes. He then rested for a period of time, went up to do some stuff around the house, and the chest pain came back. At this time came to the emergency department for evaluation. Patient has history of mild nonobstructive coronary artery disease, per most recent heart catheterization report done January,. Chest x-ray shows chronic right hemidiaphragmatic elevation. Bowel loops noted under the right diaphragm. No focal infiltrates or evidence of pneumonia. Denies any recent episodes of aspiration. Denies any odynophagia, nausea or vomiting, hematemesis. Chest CTA protocol does not show any evidence of filling defects consistent with pulmonary embolus. Moderate emphysematous changes noted. No acute cardiopulmonary process. Persistent mild elevation of right hemidiaphragm, and calcifications along the superior liver border. CBC: WBC count 11.7, hemoglobin 13.8, hematocrit 41.8, platelets 321. CMP also unremarkable. Troponin less than 0.012 x 2. EKG: normal sinus without acute ischemic changes. RBBB pattern. Patient is currently being evaluated in the emergency department, room 22. He is resting comfortably in the stretcher. Denies specific complaints at this time. On 2 L/min nasal cannula. SpO2 reading 96%. No respiratory distress. No conversational dyspnea or accessory muscle use. Chest pain at this time is subsided. Afebrile. Vitals are stable. Review of Systems Constitutional: Denies chills, Denies fever, Denies night sweats, Denies weight loss Ears, nose, mouth and throat: Reports dysphagia, Denies ant. neck pain, Denies headache, Denies nasal congestion, Denies nasal discharge, Denies odynophagia, Denies sinus pressure, Denies swelling in throat, Denies sore throat, Denies voice changes Cardiovascular: Reports chest pain, Reports dyspnea on exertion, Denies lightheadedness, Denies palpitations, Denies syncope Respiratory: Reports congestion, Reports cough with sputum, Reports dyspnea, Reports home oxygen, Reports pain on inspiration, Denies hemoptysis, Denies wheezing Gastrointestinal: Reports indigestion, Denies abdominal pain, Denies coffee ground emesis, Denies heartburn, Denies hematemesis, Denies loss of appetite, Denies melena, Denies nausea, Denies vomiting Genitourinary: Denies dysuria, Denies hematuria, Denies urinary frequency Musculoskeletal: Denies leg numbness/tingling, Denies limitation of motion Integumentary: Denies rash Neurological: Denies balance difficulties, Denies confusion, Denies headaches, Denies seizures, Denies visual changes Psychiatric: Denies anxiety, Denies depression Past Medical History Past Medical History: Cancer, Chest Pain / Angina, COPD, Hearing Disorder / Deafness, Osteoarthritis (OA) Additional Past Medical History / Comment(s): Difficulty swallowing. 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 "Broken Heart Syndrome". "Hx Covid, was on meds for 6 months, had cardiac cath and no issues since." Lower back stimulator. Encapsulated prostate - being watched. Hard of hearing. Last Myocardial Infarction Date:: 05/25/14 History of Any Multi-Drug Resistant Organisms: None Reported Past Surgical History: Adenoidectomy, Appendectomy, Back Surgery, Bowel Resection, Cholecystectomy, Heart Catheterization, Hernia Repair, Orthopedic Surgery, Tonsillectomy Additional Past Surgical History / Comment(s): Multiple EGD's, colonoscopy, cardiac cathetrization X2, several back surgeries including laminectomy, spinous process removed T11 and T12/cage/arturo, bilateral arthroscopic knee surgeries, bilateral thumb surgeries with right titanium joint, left rotator cuff repair, several nasal polypectomies, pain procedures - RFA cervical/back, bilateral ingu inal hernia repairs, right orchiectomy, diaphragmatic hernia repair, section of sigmoid colon removed, back stimulator put in left hip for back pain at [facility], right hand surgery. Past Anesthesia/Blood Transfusion Reactions: No Reported Reaction Past Psychological History: No Psychological Hx Reported Smoking Status: Former smoker - Past Family History Father Family Medical History: Cancer Additional Family Medical History / Comment(s): Father of stomach cancer at the age of 65 yrs. Mother Family Medical History: No Reported History Additional Family Medical History / Comment(s): Mother of "old age". She was 83 yrs old. Brother(s) Family Medical History: Cancer, Diabetes Mellitus Additional Family Medical History / Comment(s): Brain tumor. Sister(s) Family Medical History: Cancer, Diabetes Mellitus Additional Family Medical History / Comment(s): Sisters breast cancer. Medications and Allergies Home Medications Medication Instructions Recorded Confirmed Type Albuterol Nebulized [Ventolin 2.5 mg INHALATION RT-QID 08/16/21 11/01/23 History Nebulized] Nitroglycerin Sl Tabs [Nitrostat] 0.4 mg SL Q5M PRN 08/16/21 11/01/23 History Fluticasone/Umeclidin/Vilanter 1 puff INHALATION RT-DAILY 03/20/22 11/01/23 History [Trelegy Ellipta 200-62.5-25] hydrOXYzine HCL [Atarax] 10 mg PO HS PRN 02/11/23 11/01/23 History Aspirin 81 mg PO DAILY #30 tab 02/12/23 11/01/23 Rx Losartan [Cozaar] 25 mg PO QAM 04/09/23 11/01/23 History Albuterol Sulfate [Ventolin HFA] 1 - 2 puff INHALATION RT-Q6H PRN 11/01/23 11/01/23 History Ammonium Lactate Cream [Lac-Hydrin 1 applic TOPICAL BID 11/01/23 11/01/23 History 12% Cream] Omeprazole [PriLOSEC] 40 mg PO DAILY 11/01/23 11/01/23 History Pimecrolimus 1 applic TOPICAL BID 11/01/23 11/01/23 History Sucralfate [Carafate] 1 gm PO TID PRN 11/01/23 11/01/23 History metroNIDAZOLE 0.75% CREAM 1 applic TOPICAL BID 11/01/23 11/01/23 History [Metrocream 0.75%] traMADol HCl [Ultram] 50 mg PO Q6H PRN 11/01/23 11/01/23 History Allergies Allergy/AdvReac Type Severity Reaction Status Date / Time celecoxib [From Celebrex] Allergy Rash/Hives Verified 11/01/23 07:04 Iodinated Contrast Media Allergy Anaphylaxis Verified 11/01/23 07:04 [Iodinated Contrast Media - IV Dye] iodine Allergy Anaphylaxis Verified 11/01/23 07:04 nystatin Allergy Rash/Hives, Verified 11/01/23 07:04 Swelling, Difficulty breathing Penicillins Allergy Anaphylaxis Verified 11/01/23 07:04 Sulfa (Sulfonamide Allergy See comment Verified 11/01/23 07:04 Antibiotics) triamcinolone Allergy Rash/Hives Verified 11/01/23 07:04 fentanyl AdvReac Severe SEVERE Verified 11/01/23 07:04 MIGRAINES adhesive AdvReac tears skin Verified 11/01/23 07:04 chocolate flavor AdvReac TRIGGERS Verified 11/01/23 07:04 MIGRAINE duloxetine [From Cymbalta] AdvReac Headaches Verified 11/01/23 07:04 gabapentin AdvReac Confusion Verified 11/01/23 07:04 Opioids - Morphine Analogues AdvReac Migraine Verified 11/01/23 07:04 Opioids-Meperidine and AdvReac Migraine Verified 11/01/23 07:04 Related peanut AdvReac TRIGGERS Verified 11/01/23 07:04 MIGRAINES tree nut [Nut] AdvReac HEADACHE Verified 11/01/23 07:04 yellow dye AdvReac HEADACHE Verified 11/01/23 07:04 Physical Exam Vitals: Vital Signs Temp Pulse Resp BP Pulse Ox 11/01/23 00:00 83 13 128/72 96 10/31/23 23:19 80 10/31/23 23:09 77 10/31/23 22:00 79 19 132/72 96 10/31/23 21:00 84 16 132/66 94 L 10/31/23 20:30 90 18 127/87 95 10/31/23 19:23 97.8 F 96 18 121/74 92 L Intake and Output 10/31/23 10/31/23 11/01/23 14:59 22:59 06:59 Other: Weight 60.328 kg GENERAL EXAM: Alert, 78-year-old white male, comfortable in no apparent distress. HEAD: Normocephalic and atraumatic EYES: Normal reaction of pupils, equal size. NOSE: Clear with pink turbinates. THROAT: No erythema or exudates. NECK: No masses, no JVD. CHEST: Barrel chest LUNGS: Equal air entry with no crackles, wheeze, rhonchi or dullness. On 2 L/min nasal cannula. No conversational dyspnea or accessory muscle use.. CVS: S1 and S2 normal with no audible murmur, regular rhythm. No extra heart sounds ABDOMEN: No hepatosplenomegaly, active bowel sounds, no guarding or rigidity. SPINE: No scoliosis or deformity SKIN: No rashes CENTRAL NERVOUS SYSTEM: No focal deficits, tone is normal in all 4 extremities. EXTREMITIES: There is no peripheral edema, clubbing, or cyanosis. Peripheral pulses are intact. Results - Laboratory Findings CBC and BMP: 10/31/23 20:42 10/31/23 20:42 PT/INR, D-dimer PT 10.3 sec (10.0-12.5) 10/31/23 20:42 INR 0.9 (<1.2) 10/31/23 20:42 Abnormal lab findings: Abnormal Labs 10/31/23 10/31/23 20:42 20:42 WBC 11.7 H Neutrophils # 10.3 H Lymphocytes # 0.7 L Sodium 132 L Creatinine 0.65 L Glucose 145 H - Diagnostic Findings Chest x-ray: image reviewed CT scan - chest: image reviewed Assessment and Plan Assessment: Atypical chest pain History of mild nonobstructive coronary artery disease, based on recent heart catheterization done January, Severe chronic obstructive pulmonary disease, stable, with an FEV1 value of 40% of predicted, maintained on Trelegy and albuterol nebs 4 times per day in the outpatient setting Chronic hypoxemic respiratory failure, maintained on 2 L/min nasal cannula at bedtime Chronic dysphagia, Esophageal stricture, Esophageal dysmotility, undergoes periodic esophageal dilation History of right hemidiaphragmatic paralysis post plication Hypertension History of Takusubo syndrome, The patient had a cardiac catheterization back in February 2021 and the patient was found to have mild/minimal CAD and he was given possible diagnosis of takasubo, his ejection fraction was around 35-40%. He had significant wall motion abnormalities. Ejection fraction is since improved History of bladder cancer with excision of tumor History of migraines History of Diego's palsy History of bowel resection Former smoker Plan: Patient's medications, labs, imaging reviewed No obvious active/acute cardiopulmonary process. COPD appears stable on my evaluation Chest CTA absent of filling defects or PE Resume COPD maintenance medications Cardiology team are also consulted, doubt ACS We will continue to follow I have personally seen and examined the patient, performed the documentation and the assessment and plan as written. Number of minutes spent on the visit:20 This is a joint evaluation that was done along with the nurse practitioner. The patient's chest pain is atypical in nature. He is known to me and his COPD has been quite stable while being on Trelegy Ellipta and DuoNeb treatments [id number]. He is known to have advanced COPD and previous history of diaphragmatic plication for right hemidiaphragmatic paralysis. His current chest x-ray is consistent with COPD and the patient also had a CT angiogram that was done on 10/31/2023 showing no evidence of any pulmonary embolism, moderate emphysematous changes without any acute cardiopulmonary abnormalities. The right hemidiaphragm remains somewhat ventilated and elevated. His troponins are negative. Electrolytes and blood work are essentially within normal limits. There further GI workup at the patient has chronic problems with dysphagia, esophageal stricture and dysmotility. Time with Patient: Greater than 30
[2023-11-01] MEDS ORDERED: SUCRALFATE 1 GM TAB PO PRN (08:19)
[2023-11-01] MEDS ORDERED: traMADol 50 MG TAB PO PRN (08:19)
[2023-11-01] MEDS: ALBUTEROL NEBULIZED 2.5 MG/3 ML INHALATION SCH (08:19)
[2023-11-01] MEDS: SYMBICORT 80-4.5 MCG INHALER INHALATION SCH (08:20)
--- NOTE | 2023-11-01 08:24 | P.HPIM ---
History of Present Illness H&P Date: 11/01/23 Chief Complaint: Chest pain. Shortness of breath This is a history and physical a 78-year-old white male with known history of COPD. Takotsubo syndrome was also noted with history of chest pain in 2021. The patient states that he had significant dyspnea on exertion with substernal chest pain. Workup in the emergency room is noted. CTA is negative. Appreciate pulmonology consultation. He thinks that he had echocardiogram in 2021 or 2022. Ejection fraction was 35% at that time. He is a non-smoker but has an underlying history of chronic migraine headaches and opiate dependence. The patient currently takes tramadol for pain. No fever no chills he states significant throat irritation from drainage. But no productive cough Review of Systems Constitutional: Denies chills, Denies fever Eyes: denies blurred vision, denies pain Ears, nose, mouth and throat: Denies headache, Denies sore throat Cardiovascular: Reports as per HPI, Reports chest pain, Reports dyspnea on exertion, Reports shortness of breath, Denies leg edema Respiratory: Denies cough Gastrointestinal: Denies abdominal pain, Denies diarrhea, Denies nausea, Denies vomiting Musculoskeletal: Denies myalgias Integumentary: Denies pruritus, Denies rash Neurological: Reports as per HPI, Reports headaches Psychiatric: Denies anxiety, Denies depression Past Medical History Past Medical History: Cancer, Chest Pain / Angina, COPD, Hearing Disorder / Deafness, Osteoarthritis (OA) Additional Past Medical History / Comment(s): Difficulty swallowing. 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 "Broken Heart Syndrome". "Hx Covid, was on meds for 6 months, had cardiac cath and no issues since." Lower back stimulator. Encapsulated prostate - being watched. Hard of hearing. Last Myocardial Infarction Date:: 05/25/14 History of Any Multi-Drug Resistant Organisms: None Reported Past Surgical History: Adenoidectomy, Appendectomy, Back Surgery, Bowel Resection, Cholecystectomy, Heart Catheterization, Hernia Repair, Orthopedic Surgery, Tonsillectomy Additional Past Surgical History / Comment(s): Multiple EGD's, colonoscopy, cardiac cathetrization X2, several back surgeries including laminectomy, spinous process removed T11 and T12/cage/arturo, bilateral arthroscopic knee surgeries, bilateral thumb surgeries with right titanium joint, left rotator cuff repair, several nasal polypectomies, pain procedures - RFA cervical/back, bilateral inguinal hernia repairs, right orchiectomy, diaphragmatic hernia repair, section of sigmoid colon removed, back stimulator put in left hip for back pain at [facility], right hand surgery. Past Anesthesia/Blood Transfusion Reactions: No Reported Reaction Past Psychological History: No Psychological Hx Reported Smoking Status: Former smoker - Past Family History Father Family Medical History: Cancer Additional Family Medical History / Comment(s): Father of stomach cancer at the age of 65 yrs. Mother Family Medical History: No Reported History Additional Family Medical History / Comment(s): Mother of "old age". She was 83 yrs old. Brother(s) Family Medical History: Cancer, Diabetes Mellitus Additional Family Medical History / Comment(s): Brain tumor. Sister(s) Family Medical History: Cancer, Diabetes Mellitus Additional Family Medical History / Comment(s): Sisters breast cancer. Medications and Allergies Home Medications Medication Instructions Recorded Confirmed Type Albuterol Nebulized [Ventolin 2.5 mg INHALATION RT-QID 08/16/21 11/01/23 History Nebulized] Nitroglycerin Sl Tabs [Nitrostat] 0.4 mg SL Q5M PRN 08/16/21 11/01/23 History Fluticasone/Umeclidin/Vilanter 1 puff INHALATION RT-DAILY 03/20/22 11/01/23 History [Trelegy Ellipta 200-62.5-25] hydrOXYzine HCL [Atarax] 10 mg PO HS PRN 02/11/23 11/01/23 History Aspirin 81 mg PO DAILY #30 tab 02/12/23 11/01/23 Rx Losartan [Cozaar] 25 mg PO QAM 04/09/23 11/01/23 History Albuterol Sulfate [Ventolin HFA] 1 - 2 puff INHALATION RT-Q6H PRN 11/01/23 11/01/23 History Ammonium Lactate Cream [Lac-Hydrin 1 applic TOPICAL BID 11/01/23 11/01/23 History 12% Cream] Omeprazole [PriLOSEC] 40 mg PO DAILY 11/01/23 11/01/23 History Pimecrolimus 1 applic TOPICAL BID 11/01/23 11/01/23 History Sucralfate [Carafate] 1 gm PO TID PRN 11/01/23 11/01/23 History metroNIDAZOLE 0.75% CREAM 1 applic TOPICAL BID 11/01/23 11/01/23 History [Metrocream 0.75%] traMADol HCl [Ultram] 50 mg PO Q6H PRN 11/01/23 11/01/23 History Allergies Allergy/AdvReac Type Severity Reaction Status Date / Time celecoxib [From Celebrex] Allergy Rash/Hives Verified 11/01/23 07:04 Iodinated Contrast Media Allergy Anaphylaxis Verified 11/01/23 07:04 [Iodinated Contrast Media - IV Dye] iodine Allergy Anaphylaxis Verified 11/01/23 07:04 nystatin Allergy Rash/Hives, Verified 11/01/23 07:04 Swelling, Difficulty breathing Penicillins Allergy Anaphylaxis Verified 11/01/23 07:04 Sulfa (Sulfonamide Allergy See comment Verified 11/01/23 07:04 Antibiotics) triamcinolone Allergy Rash/Hives Verified 11/01/23 07:04 fentanyl AdvReac Severe SEVERE Verified 11/01/23 07:04 MIGRAINES adhesive AdvReac tears skin Verified 11/01/23 07:04 chocolate flavor AdvReac TRIGGERS Verified 11/01/23 07:04 MIGRAINE duloxetine [From Cymbalta] AdvReac Headaches Verified 11/01/23 07:04 gabapentin AdvReac Confusion Verified 11/01/23 07:04 Opioids - Morphine Analogues AdvReac Migraine Verified 11/01/23 07:04 Opioids-Meperidine and AdvReac Migraine Verified 11/01/23 07:04 Related peanut AdvReac TRIGGERS Verified 11/01/23 07:04 MIGRAINES tree nut [Nut] AdvReac HEADACHE Verified 11/01/23 07:04 yellow dye AdvReac HEADACHE Verified 11/01/23 07:04 Physical Exam Vitals: Vital Signs Temp Pulse Pulse Pulse Resp BP BP 11/01/23 07:45 97.4 F L 68 18 138/74 11/01/23 04:07 76 18 126/66 11/01/23 00:00 83 13 128/72 10/31/23 23:19 80 10/31/23 23:09 77 09/05/24 22:00 79 19 132/72 10/31/23 21:00 84 16 132/66 10/31/23 20:30 90 18 127/87 10/31/23 19:23 97.8 F 96 18 121/74 Pulse Ox 11/01/23 07:45 98 11/01/23 04:07 98 11/01/23 00:00 96 10/31/23 23:19 10/31/23 23:09 10/31/23 22:00 96 10/31/23 21:00 94 L 10/31/23 20:30 95 10/31/23 19:23 92 L Intake and Output 10/31/23 11/01/23 11/01/23 22:59 06:59 14:59 Other: Voiding Method Urinal Weight 60.328 kg - Constitutional General appearance: no acute distress - EENT Eyes: EOMI - Neck Neck: no lymphadenopathy - Respiratory Respiratory: bilateral: CTA - Cardiovascular Rhythm: regular Heart sounds: normal: S1, S2 Abnormal Heart Sounds: no S3 Gallop - Gastrointestinal General gastrointestinal: soft, no tenderness - Integumentary Integumentary: no cellulitis Results CBC & Chem 7: 10/31/23 20:42 10/31/23 20:42 Labs: Abnormal Lab Results - Last 24 Hours (Table) 10/31/23 10/31/23 Range/Units 20:42 20:42 WBC 11.7 H (3.8-10.6) k/uL Neutrophils # 10.3 H (1.3-7.7) k/uL Lymphocytes # 0.7 L (1.0-4.8) k/uL Sodium 132 L (137-145) mmol/L Creatinine 0.65 L (0.66-1.25) mg/dL Glucose 145 H (74-99) mg/dL Assessment and Plan (1) Migraine Current Visit: Yes Status: Acute Code(s): G43.909 - MIGRAINE, UNSP, NOT INTRACTABLE, WITHOUT STATUS MIGRAINOSUS SNOMED Code(s): 25521437 (2) Atypical chest pain Current Visit: Yes Status: Acute Code(s): R07.89 - OTHER CHEST PAIN SNOMED Code(s): 526215766 (3) COPD (chronic obstructive pulmonary disease) Current Visit: No Status: Acute Code(s): J44.9 - CHRONIC OBSTRUCTIVE PULMONARY DISEASE, UNSPECIFIED SNOMED Code(s): 97639718 (4) Chest pain Current Visit: No Status: Acute Code(s): R07.9 - CHEST PAIN, UNSPECIFIED SNOMED Code(s): 52482822 (5) Dyspnea Current Visit: No Status: Acute Code(s): R06.00 - DYSPNEA, UNSPECIFIED SNOMED Code(s): 547231736 Plan: No enzymatic elevation from a troponin perspective. Reconcile home medications. Appreciate multiple consultants input. Consult cardiology/pulmonology. Will continue to follow. Prognosis is guarded secondary to multiple comorbidities but I do not suspect ACS
[2023-11-01] MEDS: ASPIRIN 81 MG PO SCH (09:26)
[2023-11-01] MEDS: LOSARTAN 25 MG TAB PO SCH (09:26)
[2023-11-01] MEDS: PANTOPRAZOLE 40 MG TABLET PO SCH (09:26)
[2023-11-01] MEDS: NON FORMULARY DRUG (Pimecrolimus [Pimecrolimus] 30 GM Cream..G.) TOPICAL SCH (09:27)
[2023-11-01] MEDS: IPRATROPIUM-ALBUTEROL 3 ML NEB INHALATION SCH (11:27)
[2023-11-01] MEDS ORDERED: ALBUTEROL NEBULIZED 2.5 MG/3 ML INHALATION SCH (12:00)
--- NOTE | 2023-11-01 13:07 | P.CRDCN ---
History of Present Illness Consult date: 11/01/23 Consult reason: chest pain History of present illness: This is a 78-year-old male patient of Dr. Cain with past medical history of COPD, hiatal hernia, Diego's palsy, esophageal strictures, AR in 2021 with heart catheterization revealing normal coronary arteries and minimal CAD. Patient at that time was thought to have broken heart syndrome with initial echocardiogram 35 to 40%. Repeat echocardiogram has normalized LV function at 50 to 55% we have been asked to evaluate the patient for chest pain.Patient complains of chest tightness but he also had difficulty breathing related to his COPD. He states he normally is not very active because he is limited by COPD. He did walk out to the mailbox and because of shortness of breath was having difficulty returning to the house. No chest pain at this time. Heart rate in the 70s and 80s, blood pressure 138/74, pulse ox 94% on 2 L nasal cannula. EKG: Sinus rhythm, right bundle branch block unchanged from previous EKGs Chest x-ray: No acute process. COPD. CTA of the chest reveals no evidence of pulmonary embolus. Moderate emphysematous changes. No acute cardiopulmonary disease. Laboratory studies: WBC 11.7, hemoglobin 13.8. Sodium 132, potassium 4.6, BUN 19 creatinine 0.65. Troponin negative x 3. Home cardiac medications: Aspirin 81 mg daily, losartan 25 mg daily, Nitrostat as needed. Most recent cardiac catheterization 02/12/2023 revealed mid LAD 10%, mid RCA 20%, mildly aneurysmal proximal and mid RCA. SHON II flow RCA. Echocardiogram performed in the office 04/20/2021 revealed EF 50 to 55% with mild left ventricular hypertrophy. Mild aortic regurgitation. Mild MR, mild TR. PASP 28 mmHg. Mild pulmonic regurgitation. Review Of Systems: At the time of my exam: CONSTITUTIONAL: Denies fever or chills. HEENT: Denies blurred vision, vision changes, or eye pain. Denies hemoptysis CARDIOVASCULAR: Denies chest pain. Denies orthopnea. Denies PND. Denies palpitations RESPIRATORY: Reports shortness of breath. GASTROINTESTINAL: Denies abdominal pain. Denies nausea or vomiting. HEMATOLOGIC: Denies bleeding disorders. GENITOURINARY: Denies any blood in urine. SKIN: Denies puritis. Denies rash. Physical examination: Gen: This is a 78-year-old male in no acute distress VS: reviewed HEENT: Head is atraumatic, normocephalic. Pupils equal, round. Sclerae is ani cteric. NECK: Supple. No JVD. LUNGS: Clear to auscultation. No wheezes or rhonchi. No intercostal retractions. HEART: Regular rate and rhythm. No murmur. ABDOMEN: Soft No tenderness. EXTREMITIES: No pedal edema. No calf tenderness. NEUROLOGICAL: Patient is awake, alert and oriented x3. Assessment: Atypical chest pain, acute coronary syndrome ruled out COPD Chronic hypoxic respiratory failure on home O2 at 2 L nasal cannula History of esophageal strictures History of stress-induced cardiomyopathy, improved Remote history of tobacco use and dependence Plan: Resume patient's home cardiac medications Acute coronary syndrome ruled out, chest pain most likely related to COPD Patient is cleared for discharge and may follow-up with Dr. Cain at the end of the month as scheduled. Thank you kindly for this consultation. Nurse practitioner note has been reviewed, I agree with documented findings and plan of care. Patient was seen and examined. Past Medical History Past Medical History: Cancer, Chest Pain / Angina, COPD, Hearing Disorder / D eafness, Osteoarthritis (OA) Additional Past Medical History / Comment(s): Difficulty swallowing. 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 "Broken Heart Syndrome". "Hx Covid, was on meds for 6 months, had cardiac cath and no issues since." Lower back stimulator. Encapsulated prostate - being watched. Hard of hearing. Last Myocardial Infarction Date:: 05/25/14 History of Any Multi-Drug Resistant Organisms: None Reported Past Surgical History: Adenoidectomy, Appendectomy, Back Surgery, Bowel Resection, Cholecystectomy, Heart Catheterization, Hernia Repair, Orthopedic Surgery, Tonsillectomy Additional Past Surgical History / Comment(s): Multiple EGD's, colonoscopy, cardiac cathetrization X2, several back surgeries including laminectomy, spinous process removed T11 and T12/cage/arturo, bilateral arthroscopic knee surgeries, bilateral thumb surgeries with right titanium joint, left rotator cuff repair, several nasal polypectomies, pain procedures - RFA cervical/back, bilateral inguinal hernia repairs, right orchiectomy, diaphragmatic hernia repair, section of sigmoid colon removed, back stimulator put in left hip for back pain at [facility], right hand surgery. Past Anesthesia/Blood Transfusion Reactions: No Reported Reaction Past Psychological History: No Psychological Hx Reported Smoking Status: Former smoker - Past Family History Father Family Medical History: Cancer Additional Family Medical History / Comment(s): Father of stomach cancer at the age of 65 yrs. Mother Family Medical History: No Reported History Additional Family Medical History / Comment(s): Mother of "old age". She was 83 yrs old. Brother(s) Family Medical History: Cancer, Diabetes Mellitus Additional Family Medical History / Comment(s): Brain tumor. Sister(s) Family Medical History: Cancer, Diabetes Mellitus Additional Family Medical History / Comment(s): Sisters breast cancer. Medications and Allergies Home Medications Medication Instructions Recorded Confirmed Type Albuterol Nebulized [Ventolin 2.5 mg INHALATION RT-QID 08/16/21 11/01/23 History Nebulized] Nitroglycerin Sl Tabs [Nitrostat] 0.4 mg SL Q5M PRN 08/16/21 11/01/23 History Fluticasone/Umeclidin/Vilanter 1 puff INHALATION RT-DAILY 03/20/22 11/01/23 History [Trelegy Ellipta 200-62.5-25] hydrOXYzine HCL [Atarax] 10 mg PO HS PRN 02/11/23 11/01/23 History Aspirin 81 mg PO DAILY #30 tab 02/12/23 11/01/23 Rx Losartan [Cozaar] 25 mg PO QAM 04/09/23 11/01/23 History Albuterol Sulfate [Ventolin HFA] 1 - 2 puff INHALATION RT-Q6H PRN 11/01/23 11/01/23 History Ammonium Lactate Cream [Lac-Hydrin 1 applic TOPICAL BID 11/01/23 11/01/23 Hi story 12% Cream] Omeprazole [PriLOSEC] 40 mg PO DAILY 11/01/23 11/01/23 History Pimecrolimus 1 applic TOPICAL BID 11/01/23 11/01/23 History Sucralfate [Carafate] 1 gm PO TID PRN 11/01/23 11/01/23 History metroNIDAZOLE 0.75% CREAM 1 applic TOPICAL BID 11/01/23 11/01/23 History [Metrocream 0.75%] traMADol HCl [Ultram] 50 mg PO Q6H PRN 11/01/23 11/01/23 History Allergies Allergy/AdvReac Type Severity Reaction Status Date / Time celecoxib [From Celebrex] Allergy Rash/Hives Verified 11/01/23 07:04 Iodinated Contrast Media Allergy Anaphylaxis Verified 11/01/23 07:04 [Iodinated Contrast Media - IV Dye] iodine Allergy Anaphylaxis Verified 11/01/23 07:04 nystatin Allergy Rash/Hives, Verified 11/01/23 07:04 Swelling, Difficulty breathing Penicillins Allergy Anaphylaxis Verified 11/01/23 07:04 Sulfa (Sulfonamide Allergy See comment Verified 11/01/23 07:04 Antibiotics) triamcinolone Allergy Rash/Hives Verified 11/01/23 07:04 fentanyl AdvReac Severe SEVERE Verified 11/01/23 07:04 MIGRAINES adhesive AdvReac tears skin Verified 11/01/23 07:04 chocolate flavor AdvReac TRIGGERS Verified 11/01/23 07:04 MIGRAINE duloxetine [From Cymbalta] AdvReac Headaches Verified 11/01/23 07:04 gabapentin AdvReac Confusion Verified 11/01/23 07:04 Opioids - Morphine Analogues AdvReac Migraine Verified 11/01/23 07:04 Opioids-Meperidine and AdvReac Migraine Verified 11/01/23 07:04 Related peanut AdvReac TRIGGERS Verified 11/01/23 07:04 MIGRAINES tree nut [Nut] AdvReac HEADACHE Verified 11/01/23 07:04 yellow dye AdvReac HEADACHE Verified 11/01/23 07:04 Physical Exam Vitals: Vital Signs Temp Pulse Pulse Pulse Resp BP BP 11/01/23 08:35 85 11/01/23 08:23 11/01/23 08:20 82 11/01/23 07:45 97.4 F L 68 18 138/74 11/01/23 04:07 76 18 126/66 11/01/23 00:00 83 13 128/72 10/31/23 23:19 80 10/31/23 23:09 77 10/31/23 22:00 79 19 132/72 10/31/23 21:00 84 16 132/66 10/31/23 20:30 90 18 127/87 10/31/23 19:23 97.8 F 96 18 121/74 Pulse Ox 11/01/23 08:35 11/01/23 08:23 94 L 11/01/23 08:20 11/01/23 07:45 98 11/01/23 04:07 98 11/01/23 00:00 96 10/31/23 23:19 10/31/23 23:09 10/31/23 22:00 96 10/31/23 21:00 94 L 10/31/23 20:30 95 10/31/23 19:23 92 L Intake and Output 10/31/23 11/01/23 11/01/23 22:59 06:59 14:59 Other: Voiding Method Urinal Weight 60.328 kg Results 10/31/23 20:42 10/31/23 20:42 Cardiac Enzymes 10/31/23 10/31/23 11/01/23 Range/Units 20:42 20:42 00:44 AST 28 (17-59) U/L Troponin I <0.012 <0.012 (0.000-0.034) ng/mL 11/01/23 Range/Units 03:05 AST (17-59) U/L Troponin I <0.012 (0.000-0.034) ng/mL Coagulation 10/31/23 Range/Units 20:42 PT 10.3 (10.0-12.5) sec APTT 24.8 (22.0-30.0) sec CBC 10/31/23 Range/Units 20:42 WBC 11.7 H (3.8-10.6) k/uL RBC 4.32 (4.30-5.90) m/uL Hgb 13.8 (13.0-17.5) gm/dL Hct 41.8 (39.0-53.0) % Plt Count 321 (150-450) k/uL Comprehensive Metabolic Panel 10/31/23 Range/Units 20:42 Sodium 132 L (137-145) mmol/L Potassium 4.6 (3.5-5.1) mmol/L Chloride 99 (98-107) mmol/L Carbon Dioxide 22 (22-30) mmol/L BUN 19 (9-20) mg/dL Creatinine 0.65 L (0.66-1.25) mg/dL Glucose 145 H (74-99) mg/dL Calcium 9.6 (8.4-10.2) mg/dL AST 28 (17-59) U/L ALT 17 (4-49) U/L Alkaline Phosphatase 84 (38-126) U/L Total Protein 6.9 (6.3-8.2) g/dL Albumin 4.2 (3.5-5.0) g/dL Current Medications Generic Name Dose Route Start Last Admin Trade Name Freq PRN Reason Stop Dose Admin Albuterol/Ipratropium 3 ml 10/31/23 22:44 Ipratropium-Albuterol 3 Ml Neb INHALATION RT-QID PRN Shortness Of Breath Or Wheezing Albuterol/Ipratropium 3 ml 11/01/23 12:00 Ipratropium-Albuterol 3 Ml Neb INHALATION RT-QID [facility] Aspirin 81 mg 11/01/23 09:00 Aspirin 81 Mg PO DAILY [facility] Budesonide/Formoterol Fumarate 2 puff 11/01/23 08:00 11/01/23 08:20 Symbicort 80-4.5 Mcg Inhaler INHALATION 2 puff RT-BID AMEE Administration Hydroxyzine HCl 10 mg 11/01/23 21:00 Hydroxyzine Hcl 10 Mg Tab PO HS PRN Itching Sodium Chloride 1,000 mls @ 75 mls/hr 10/31/23 23:30 10/31/23 23:36 Saline 0.9% IV 75 mls/hr .[id number] AMEE Administration Losartan Potassium 25 mg 11/01/23 09:00 Losartan 25 Mg Tab PO QAM [facility] Morphine Sulfate 4 mg 10/31/23 22:44 Morphine Sulfate 4 Mg/Ml Syringe IVP Q4HR PRN Pain Naloxone HCl 0.2 mg 10/31/23 23:16 Naloxone 0.4 Mg/Ml 1 Ml Vial IV Q2M PRN Opioid Reversal Non-Formulary Medication 1 applic 11/01/23 09:00 Pimecrolimus [Pimecrolimus] TOPICAL BID [facility] Ondansetron HCl 4 mg 10/31/23 23:16 Ondansetron 4 Mg/2 Ml Vial IVP Q8HR PRN Nausea And Vomiting Pantoprazole Sodium 40 mg 11/01/23 09:00 Pantoprazole 40 Mg Tablet PO DAILY AMEE Sucralfate 1 gm 11/01/23 08:19 Sucralfate 1 Gm Tab PO TID PRN gerd Tramadol HCl 50 mg 11/01/23 08:19 Tramadol 50 Mg Tab PO Q6H PRN Pain Intake and Output 10/31/23 11/01/23 11/01/23 22:59 06:59 14:59 Other: Voiding Method Urinal Weight 60.328 kg 10/31/23 20:42 10/31/23 20:42
[2023-11-01 14:45] VITALS: BP 143/71; RESP 16; TEMP 97.7
[2023-11-01 15:30] VITALS: PULSE 84
--- NOTE | 2023-11-01 16:03 | P.DS ---
Providers Date of admission: 10/31/23 23:18 Attending physician: Lul Garcia Consults: 10/31/23 23:16 Consult Physician Routine Consulting Provider: Bharath Medrano Consult Reason/Comments: known Do you want consulting provider notified?: Yes Consult Physician Routine Consulting Provider: Uriel Cain Consult Reason/Comments: cp Do you want consulting provider notified?: Yes Primary care physician: Lul Garcia - Discharge Diagnosis(es) (1) Migraine Current Visit: Yes Status: Acute (2) Atypical chest pain Current Visit: Yes Status: Acute (3) COPD (chronic obstructive pulmonary disease) Current Visit: No Status: Acute (4) Chest pain Current Visit: No Status: Acute (5) Dyspnea Current Visit: No Status: Acute Hospital Course: The patient is here essentially for significant chest pain. It was atypical in nature. CTA was negative. Pulmonology and cardiology was consulted. IV hydration was done he was tolerating diet and he will be discharged in stable condition to follow-up with me in about 5-7 days. Patient Condition at Discharge: Fair Plan - Discharge Summary Discharge Rx Participant: No New Discharge Prescriptions: New Budesonide/Formoterol Fumarate [Symbicort 80-4.5 Mcg Inhaler] 2 puff INHALATION BID #1 each Continue Albuterol Nebulized [Ventolin Nebulized] 2.5 mg INHALATION RT-QID Aspirin 81 mg PO DAILY #30 tab Omeprazole [PriLOSEC] 40 mg PO DAILY Ammonium Lactate Cream [Lac-Hydrin 12% Cream] 1 applic TOPICAL BID Albuterol Sulfate [Ventolin HFA] 1 - 2 puff INHALATION RT-Q6H PRN PRN Reason: Shortness Of Breath traMADol HCl [Ultram] 50 mg PO Q6H PRN PRN Reason: Pain Nitroglycerin Sl Tabs [Nitrostat] 0.4 mg SL Q5M PRN PRN Reason: Chest Pain Fluticasone/Umeclidin/Vilanter [Trelegy Ellipta 200-62.5-25] 1 puff INHALATION RT-DAILY hydrOXYzine HCL [Atarax] 10 mg PO HS PRN PRN Reason: Itching Losartan [Cozaar] 25 mg PO QAM metroNIDAZOLE 0.75% CREAM [Metrocream 0.75%] 1 applic TOPICAL BID Sucralfate [Carafate] 1 gm PO TID PRN PRN Reason: gerd Pimecrolimus 1 applic TOPICAL BID Discharge Medication List Albuterol Nebulized [Ventolin Nebulized] 2.5 mg INHALATION RT-QID 08/16/21 [History] Nitroglycerin Sl Tabs [Nitrostat] 0.4 mg SL Q5M PRN 08/16/21 [History] Fluticasone/Umeclidin/Vilanter [Trelegy Ellipta 200-62.5-25] 1 puff INHALATION RT-DAILY 03/20/22 [History] hydrOXYzine HCL [Atarax] 10 mg PO HS PRN 02/11/23 [History] Aspirin 81 mg PO DAILY #30 tab 02/12/23 [Rx] Losartan [Cozaar] 25 mg PO QAM 04/09/23 [History] Albuterol Sulfate [Ventolin HFA] 1 - 2 puff INHALATION RT-Q6H PRN 11/01/23 [History] Ammonium Lactate Cream [Lac-Hydrin 12% Cream] 1 applic TOPICAL BID 11/01/23 [History] Budesonide/Formoterol Fumarate [Symbicort 80-4.5 Mcg Inhaler] 2 puff INHALATION BID #1 each 11/01/23 [Rx] Omeprazole [PriLOSEC] 40 mg PO DAILY 11/01/23 [History] Pimecrolimus 1 applic TOPICAL BID 11/01/23 [History] Sucralfate [Carafate] 1 gm PO TID PRN 11/01/23 [History] metroNIDAZOLE 0.75% CREAM [Metrocream 0.75%] 1 applic TOPICAL BID 11/01/23 [History] traMADol HCl [Ultram] 50 mg PO Q6H PRN 11/01/23 [History] Follow up Appointment(s)/Referral(s): Lul Garcia MD [Primary Care Provider] - 1-2 days
[2023-11-01] MEDS ORDERED: SYMBICORT 80-4.5 MCG INHALER INHALATION SCH (20:00)
[2023-11-01] MEDS ORDERED: hydrOXYzine HCL 10 MG TAB PO PRN (21:00)
[2023-11-02] MEDS ORDERED: IPRATROPIUM 0.5 MG/2.5 ML NEBU INHALATION SCH (08:00)
== END 2023-11-01 16:29 | disposition home or self-care (01) ==
LOC: EC 19:13 → 6NMEDSUR 23:18
PROVIDERS: ADMIT Family Medicine; ATTEND Family Medicine
DX: R07.89 Other chest pain (principal); R41.82 Altered mental status, unspecified; J96.11 Chronic respiratory failure with hypoxia; I51.81 Takotsubo syndrome; I25.10 Atherosclerotic heart disease of native coronary artery without angina pectoris; J44.9 Chronic obstructive pulmonary disease, unspecified; K22.2 Esophageal obstruction; K22.4 Dyskinesia of esophagus; J98.6 Disorders of diaphragm; I10 Essential (primary) hypertension; G43.909 Migraine, unspecified, not intractable, without status migrainosus; G51.0 Bell's palsy; I25.2 Old myocardial infarction; Z85.51 Personal history of malignant neoplasm of bladder; Z85.47 Personal history of malignant neoplasm of testis; Z86.16 Personal history of COVID-19; Z87.891 Personal history of nicotine dependence; Z90.49 Acquired absence of other specified parts of digestive tract; Z92.3 Personal history of irradiation; Z99.81 Dependence on supplemental oxygen; Z79.51 Long term (current) use of inhaled steroids; Z79.82 Long term (current) use of aspirin; Z79.899 Other long term (current) drug therapy; Z79.891 Long term (current) use of opiate analgesic; Z88.0 Allergy status to penicillin; Z88.2 Allergy status to sulfonamides; Z88.6 Allergy status to analgesic agent
CPT/HCPCS: 36415; 71046; 80053; 83735; 84484; 85025; 85610; 85730; 93005; 94640; 94760; 96361; 96374; 96375; 99285

== ENCOUNTER → 2023-10-31 | Outpatient (CLI) | payer MEDICARE ==
[2023-10-31 09:12] LABS: African American GFR (CKD) >90 (>60 ml/min/1.73 sqM); Blood Urea Nitrogen 14 mg/dL (9-20); Non-African American GFR(CKD) >90 (>60 ml/min/1.73 sqM)
--- NOTE | 2023-10-31 10:44 | CT ---
EXAMINATION TYPE: CT angio chest DATE OF EXAM: 10/31/2023 10:17 AM COMPARISON: None HISTORY: Hx PE, COPD. routine follow up. CT DLP: 177.90 mGycm Automated exposure control for dose reduction was used. CONTRAST: CTA scan of the thorax is performed with IV Contrast, patient injected with 100 mL of Isovue 370, pul monary embolism protocol. 3-D postprocessing was performed.. FINDINGS: There are moderate emphysematous changes. There is no suspicious lung mass or nodule. There are no filling defects within the pulmonary arterial circulation to suggest pulmonary embolism. There is no mediastinal, hilar or axillary adenopathy. There is no lung consolidation. There is persistent mild elevation of the right hemidiaphragm and there are calcific densities along the superior liver edge seen on a prior CT abdomen and pelvis dated 06/15/2021. No focal osseous lesions are seen. IMPRESSION: 1. No evidence of pulmonary embolus. 2. Moderate emphysematous changes. 3. No acute cardiopulmonary disease.
== END | disposition home or self-care (01) ==
LOC: RADCTMAIN 08:22
PROVIDERS: ATTEND Internal Medicine Critical Care Medicine
DX: I26.99 Other pulmonary embolism without acute cor pulmonale
CPT/HCPCS: 36415; 71275; 82565; 84520

== ENCOUNTER 2023-12-11 10:18 | Day surgery (SDC) | payer MEDICARE ==
--- NOTE | 2023-12-11 08:55 | P.GSHP ---
History of Present Illness H&P Date: 12/11/23 CHIEF COMPLAINT: GERD HISTORY OF PRESENT ILLNESS: The patient is a 78-year-old male who presents reports gastroesophageal reflux disease. Upper endoscopy was offered for further evaluation and management. PAST MEDICAL HISTORY: Please see list. PAST SURGICAL HISTORY: Please see list. MEDICATIONS: Please see list. ALLERGIES: Please see list. SOCIAL HISTORY: No illicit drug use FAMILY HISTORY: No reports of Crohn disease or ulcerative colitis. REVIEW OF ORGAN SYSTEMS: CONSTITUTIONAL: No reports of fevers or chills. GI: Denies any blood in stools or constipation. PHYSICAL EXAM: VITAL SIGNS: Stable GENERAL: Well-developed and pleasant in no acute distress. HEENT: No scleral icterus. Extraocular movements grossly intact. Moist buccal mucosa. NECK: Supple without lymphadenopathy. CHEST: Unlabored respirations. Equal bilateral excursions. CARDIOVASCULAR: Regular rate and rhythm. Distal 2+ pulses. ABDOMEN: Soft, nondistended. MUSCULOSKELETAL: No clubbing, cyanosis, or edema. ASSESSMENT: 1. Gastroesophageal reflux disease PLAN: 1. Recommend proceeding with an upper endoscopy Past Medical History Past Medical History: Cancer, Chest Pain / Angina, COPD, Hearing Disorder / Deafness, Osteoarthritis (OA) Additional Past Medical History / Comment(s): Difficulty swallowing. 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 "Broken Heart Syndrome". "Hx Covid, was on meds for 6 months, had cardiac cath and no issues since." Lower back stimulator. Encapsulated prostate - being watched. Hard of hearing. Last Myocardial Infarction Date:: 05/25/14 History of Any Multi-Drug Resistant Organisms: None Reported Past Surgical History: Adenoidectomy, Appendectomy, Back Surgery, Bowel Resection, Cholecystectomy, Heart Catheterization, Hernia Repair, Orthopedic Surgery, Tonsillectomy Additional Past Surgical History / Comment(s): Multiple EGD's, colonoscopy, cardiac cathetrization X2, several back surgeries including laminectomy, spinous process removed T11 and T12/cage/arturo, bilateral arthroscopic knee surgeries, bilateral thumb surgeries with right titanium joint, left rotator cuff repair, several nasal polypectomies, pain procedures - RFA cervical/back, bilateral inguinal hernia repairs, right orchiectomy, diaphragmatic hernia repair, section of sigmoid colon removed, back stimulator put in left hip for back pain at [facility], now removed right hand surgery. Past Anesthesia/Blood Transfusion Reactions: No Reported Reaction Smoking Status: Former smoker - Past Family History Father Family Medical History: Cancer Additional Family Medical History / Comment(s): Father of stomach cancer at the age of 65 yrs. Mother Family Medical History: No Reported History Additional Family Medical History / Comment(s): Mother of "old age". She was 83 yrs old. Brother(s) Family Medical History: Cancer, Diabetes Mellitus Additional Family Medical History / Comment(s): Brain tumor. Sister(s) Family Medical History: Cancer, Diabetes Mellitus Additional Family Medical History / Comment(s): Sisters breast cancer. Medications and Allergies Home Medications Medication Instructions Recorded Confirmed Type Albuterol Nebulized [Ventolin 2.5 mg INHALATION RT-QID 08/16/21 12/06/23 History Nebulized] Nitroglycerin Sl Tabs [Nitrostat] 0.4 mg SL Q5M PRN 08/16/21 12/06/23 History Fluticasone/Umeclidin/Vilanter 1 puff INHALATION RT-DAILY 03/20/22 12/06/23 History [Trelegy Ellipta 200-62.5-25] hydrOXYzine HCL [Atarax] 10 mg PO HS PRN 02/11/23 12/06/23 History Aspirin 81 mg PO DAILY #30 tab 02/12/23 12/06/23 Rx Losartan [Cozaar] 25 mg PO QAM 04/09/23 12/06/23 History Albuterol Sulfate [Ventolin HFA] 1 - 2 puff INHALATION RT-Q6H PRN 11/01/23 12/06/23 History Ammonium Lactate Cream [Lac-Hydrin 1 applic TOPICAL BID 11/01/23 12/06/23 History 12% Cream] Omeprazole [PriLOSEC] 40 mg PO DAILY 11/01/23 12/06/23 History Pimecrolimus 1 applic TOPICAL BID 11/01/23 12/06/23 History Sucralfate [Carafate] 1 gm PO TID PRN 11/01/23 12/06/23 History metroNIDAZOLE 0.75% CREAM 1 applic TOPICAL BID 11/01/23 12/06/23 History [Metrocream 0.75%] traMADol HCl [Ultram] 50 mg PO Q6H PRN 11/01/23 12/06/23 History Allergies Allergy/AdvReac Type Severity Reaction Status Date / Time celecoxib [From Celebrex] Allergy Rash/Hives Verified 12/06/23 12:15 Iodinated Contrast Media Allergy Anaphylaxis Verified 12/06/23 12:15 [Iodinated Contrast Media - IV Dye] iodine Allergy Anaphylaxis Verified 12/06/23 12:15 nystatin Allergy Rash/Hives, Verified 12/06/23 12:15 Swelling, Difficulty breathing Penicillins Allergy Anaphylaxis Verified 12/06/23 12:15 Sulfa (Sulfonamide Allergy See comment Verified 12/06/23 12:15 Antibiotics) triamcinolone Allergy Rash/Hives Verified 12/06/23 12:15 fentanyl AdvReac Severe SEVERE Verified 12/06/23 12:15 MIGRAINES adhesive AdvReac tears skin Verified 12/06/23 12:15 chocolate flavor AdvReac TRIGGERS Verified 12/06/23 12:15 MIGRAINE duloxetine [From Cymbalta] AdvReac Headaches Verified 12/06/23 12:15 gabapentin AdvReac Confusion Verified 12/06/23 12:15 Opioids - Morphine Analogues AdvReac Migraine Verified 12/06/23 12:15 Opioids-Meperidine and AdvReac Migraine Verified 12/06/23 12:15 Related peanut AdvReac TRIGGERS Verified 12/06/23 12:15 MIGRAINES tree nut [Nut] AdvReac HEADACHE Verified 12/06/23 12:15 yellow dye AdvReac HEADACHE Verified 12/06/23 12:15
[2023-12-11] MEDS: IV FLUID CONTINUATION 1,000 ML IV ONE (11:44)
[2023-12-11 11:53] VITALS: TEMP 96.9
[2023-12-11] MEDS: LACTATED RINGERS 1,000 ML IV SCH (11:59)
[2023-12-11] MEDS ORDERED: PROPOFOL 10 MG/ML 20 ML VIAL IV ONE (12:45)
[2023-12-11] MEDS ORDERED: LIDOCAINE 1% INJ 10MG/ML (20 ML MDV) ONE (12:45)
--- NOTE | 2023-12-11 13:04 | P.PCN ---
Date of Procedure: 12/11/23 Description of Procedure: PREOPERATIVE DIAGNOSIS: Dysphagia. Presbyesophagus Esophageal stricture POSTOPERATIVE DIAGNOSIS: Esophageal dysmotility Dysphagia. Upper esophageal stenosis OPERATION: Esophagogastroduodenoscopy with rigid dilator over the guidewire 60 Fr. SURGEON: Bonnie Padilla MD ANESTHESIA: MAC. INDICATIONS: The patient is a 78-year-old male who presents with esophageal stricture and and dysphagia. Benefits and risks of the procedure were described. Informed consent was obtained. DESCRIPTION: The patient was brought into the endoscopy suite and laid in the left lateral decubitus position. After a timeout was confirmed, the procedure was initiated. An Olympus gastroscope was passed and the stomach was entered. Minimal chronic gastritis was identified. The scope was advanced to the duodenum which was unremarkable. Next using an Haitian rigid dilator, a guidewire was placed through the pediatric gastroscope. Next the scope was withdrawn. A 60-Burkinan rigid Haitian dilator was passed carefully along the posterior oropharynx to 40 cm and left in place for 2-3 minutes stretch. The dilator was withdrawn including the guidewire. The scope was reentered along the posterior oropharynx with no findings of full-thickness tear of the upper esophageal sphincter. No full-thickness injury was encountered. The GI tract was desufflated. The patient tolerated the procedure well. FINDINGS: Squamocolumnar junction unremarkable at 38 cm. Haitian rigid dilator 60-Burkinan completed. No recurrent hiatal hernia Hill grade 1 lower esophageal valve. LA grade A esophagitis. Chronic gastritis RECOMMENDATIONS: Upper endoscopy with dilation as needed Plan - Discharge Summary Discharge Rx Participant: No New Discharge Prescriptions: Continue Albuterol Nebulized [Ventolin Nebulized] 2.5 mg INHALATION RT-QID Aspirin 81 mg PO DAILY #30 tab Omeprazole [PriLOSEC] 40 mg PO DAILY Ammonium Lactate Cream [Lac-Hydrin 12% Cream] 1 applic TOPICAL BID Albuterol Sulfate [Ventolin HFA] 1 - 2 puff INHALATION RT-Q6H PRN PRN Reason: Shortness Of Breath traMADol HCl [Ultram] 50 mg PO Q6H PRN PRN Reason: Pain Nitroglycerin Sl Tabs [Nitrostat] 0.4 mg SL Q5M PRN PRN Reason: Chest Pain Fluticasone/Umeclidin/Vilanter [Trelegy Ellipta 200-62.5-25] 1 puff INHALATION RT-DAILY hydrOXYzine HCL [Atarax] 10 mg PO HS PRN PRN Reason: Itching Losartan [Cozaar] 25 mg PO QAM metroNIDAZOLE 0.75% CREAM [Metrocream 0.75%] 1 applic TOPICAL BID Sucralfate [Carafate] 1 gm PO TID PRN PRN Reason: gerd Pimecrolimus 1 applic TOPICAL BID Discharge Medication List Albuterol Nebulized [Ventolin Nebulized] 2.5 mg INHALATION RT-QID 08/16/21 [History] Nitroglycerin Sl Tabs [Nitrostat] 0.4 mg SL Q5M PRN 08/16/21 [History] Fluticasone/Umeclidin/Vilanter [Trelegy Ellipta 200-62.5-25] 1 puff INHALATION RT-DAILY 03/20/22 [History] hydrOXYzine HCL [Atarax] 10 mg PO HS PRN 02/11/23 [History] Aspirin 81 mg PO DAILY #30 tab 02/12/23 [Rx] Losartan [Cozaar] 25 mg PO QAM 04/09/23 [History] Albuterol Sulfate [Ventolin HFA] 1 - 2 puff INHALATION RT-Q6H PRN 11/01/23 [History] Ammonium Lactate Cream [Lac-Hydrin 12% Cream] 1 applic TOPICAL BID 11/01/23 [History] Omeprazole [PriLOSEC] 40 mg PO DAILY 11/01/23 [History] Pimecrolimus 1 applic TOPICAL BID 11/01/23 [History] Sucralfate [Carafate] 1 gm PO TID PRN 11/01/23 [History] metroNIDAZOLE 0.75% CREAM [Metrocream 0.75%] 1 applic TOPICAL BID 11/01/23 [History] traMADol HCl [Ultram] 50 mg PO Q6H PRN 11/01/23 [History] Follow up Appointment(s)/Referral(s): Bonnie Padilla MD [STAFF PHYSICIAN] - As Needed Patient Instructions/Handouts: Esophageal Dilation (GEN) Activity/Diet/Wound Care/Special Instructions: Recommend room temperature or warm beverages prior to eating Discharge Disposition: HOME SELF-CARE
[2023-12-11 13:54] VITALS: BP 144/78; PULSE 70; RESP 20
== END 2023-12-11 13:52 | disposition home or self-care (01) ==
LOC: ORWHC2ENDO 10:18
PROVIDERS: ATTEND Surgery Plastic and Reconstructive Surgery
CPT/HCPCS: 43248

== ENCOUNTER → 2023-12-19 | Outpatient (CLI) | payer MEDICARE ==
--- NOTE | 2023-12-19 14:12 | FL ---
EXAMINATION TYPE: FL barium swallow w video DATE OF EXAM: 12/19/2023 CLINICAL HISTORY: 78-year-old male R13.10 Dysphagia. History of previous esophageal dilatations. TECHNIQUE: Deglutition study is performed utilizing thin liquid barium, barium thick applesauce, and barium coated cracker. Total fluoroscopy time 1 minute 28 seconds. Total images: None. Real-time fluoroscopy support was provided to speech pathology. Total DAP: 20 mGycm2. COMPARISON: None. FINDINGS: The oral and pharyngeal phases show satisfactory initiation and propagation with all modali ties tested. Normal mastication is seen with solid modalities tested. There is no evidence of penet ration or aspiration with any modality tested. No significant pharyngeal residue was appreciated. IMPRESSION: Normal dynamic swallow study. Please refer to speech therapist notes for further details if necessary. [facility], , 12/19/2023 2:09 PM
== END | disposition home or self-care (01) ==
LOC: RADFLMAIN 11:01
PROVIDERS: ATTEND Family Medicine
DX: R13.10 Dysphagia, unspecified (principal)
CPT/HCPCS: 74230

== ENCOUNTER → 2024-01-06 | Outpatient (CLI) | payer MEDICARE ==
--- NOTE | 2024-01-06 12:21 | XR ---
EXAMINATION TYPE: XR abdomen 2V DATE OF EXAM: 01/06/2024 11:41 AM COMPARISON: 08/31/2020 CLINICAL INDICATION: Male, 78 years old with history of K59.00 constipation; TECHNIQUE: Two views of the abdomen were obtained. FINDINGS: Moderate amount stool throughout the colon. The bowel gas pattern is nonspecific without di lated loops of small or large bowel. There is no evidence for organomegaly or pneumoperitoneum. The osseous structures are intact. No abnormal calcifications are present. Fecal material and gas are de monstrated throughout the colon and rectum. Excisional hardware in the lower spine. Surgical suture projecting over the left lower quadrant. IMPRESSION: 1. Moderate amount of stool throughout the colon. 2. Nonspecific bowel gas pattern without radiographic evidence for acute process. 3. [facility], , 01/06/2024 12:18 PM
== END | disposition home or self-care (01) ==
LOC: RADXRMAIN 11:24
PROVIDERS: ATTEND Family Medicine
DX: K59.00 Constipation, unspecified (principal); R19.5 Other fecal abnormalities
CPT/HCPCS: 74019

== ENCOUNTER 2024-02-12 08:42 | Day surgery (SDC) | payer MEDICARE, SELFPAY ==
[2024-02-11 10:54] VITALS: BMI 19.2
--- NOTE | 2024-02-12 09:31 | P.GSHP ---
History of Present Illness H&P Date: 02/12/24 CHIEF COMPLAINT: GERD and colon screen HISTORY OF PRESENT ILLNESS: The patient is a 78-year-old male who presents with gastroesophageal reflux disease and need for colon screen. Upper and lower endoscopy were offered for further evaluation and management. PAST MEDICAL HISTORY: Please see list. PAST SURGICAL HISTORY: Please see list. MEDICATIONS: Please see list. ALLERGIES: Please see list. SOCIAL HISTORY: No illicit drug use FAMILY HISTORY: No reports of Crohn disease or ulcerative colitis. REVIEW OF ORGAN SYSTEMS: CONSTITUTIONAL: No reports of fevers or chills. GI: Denies any blood in stools or constipation. PHYSICAL EXAM: VITAL SIGNS: Stable GENERAL: Well-developed pleasant in no acute distress. HEENT: No scleral icterus. Extraocular movements grossly intact. Moist buccal mucosa. NECK: Supple without lymphadenopathy. CHEST: Unlabored respirations. Equal bilateral excursions. CARDIOVASCULAR: Regular rate and rhythm. Distal 2+ pulses. ABDOMEN: Soft, nondistended. MUSCULOSKELETAL: No clubbing, cyanosis, or edema. ASSESSMENT: 1. Gastroesophageal reflux disease 2. Colon screen. PLAN: 1. Recommend proceeding with an upper and lower endoscopy Past Medical History Past Medical History: Cancer, Chest Pain / Angina, COPD, Osteoarthritis (OA), Prostate Disorder, Skin Disorder Additional Past Medical History / Comment(s): Difficulty swallowing. Has to get esophagus dilated every 6-8weeks. 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 "Broken Heart Syndrome". "Hx Covid, was on meds for 6 months, had cardiac cath and no issues since." Hx-Lower back stimulator-removed Nov 2023. Cage in lower back around L5. Encapsulated prostate - being watched. Slightly enlarged prostate. "Sun poisoning-dry skin"- occasionally breaks out. Last Myocardial Infarction Date:: 05/25/14 History of Any Multi-Drug Resistant Organisms: None Reported Past Surgical History: Adenoidectomy, Appendectomy, Back Surgery, Bowel Resection, Cholecystectomy, Heart Catheterization, Hernia Repair, Orthopedic Surgery, Tonsillectomy Additional Past Surgical History / Comment(s): Multiple EGD's, colonoscopy, cardiac cathetrization X2, several back surgeries including laminectomy, spinous process removed T11 and T12/cage/arturo, bilateral arthroscopic knee surgeries, bilateral thumb surgeries with right titanium joint, left rotator cuff repair, several nasal polypectomies, pain procedures - RFA cervical/back, bilateral inguinal hernia repairs, right orchiectomy, diaphragmatic hernia repair, section of sigmoid colon removed, back stimulator put in left hip for back pain at [facility]- removed Nov 2023, right hand surgery. Multiple EGD's w/dilitation. Past Anesthesia/Blood Transfusion Reactions: No Reported Reaction Additional Past Anesthesia/Blood Transfusion Reaction / Comment(s): No hx of blood transfusion to date. Smoking Status: Former smoker - Past Family History Father Family Medical History: Cancer Additional Family Medical History / Comment(s): Father of stomach cancer at the age of 65 yrs. Mother Family Medical History: No Reported History Additional Family Medical History / Comment(s): Mother of "old age". She was 83 yrs old. Brother(s) Family Medical History: Cancer, Diabetes Mellitus Additional Family Medical History / Comment(s): Brain tumor. Sister(s) Family Medical History: Cancer, Diabetes Mellitus Additional Family Medical History / Comment(s): Sisters breast cancer. Medications and Allergies Home Medications Medication Instructions Recorded Confirmed Type Albuterol Nebulized [Ventolin 2.5 mg INHALATION QAM 08/16/21 02/11/24 History Nebulized] Nitroglycerin Sl Tabs [Nitrostat] 0.4 mg SL Q5M PRN 08/16/21 02/11/24 History Fluticasone/Umeclidin/Vilanter 1 puff INHALATION RT-DAILY 03/20/22 02/11/24 History [Trelegy Ellipta 200-62.5-25] hydrOXYzine HCL [Atarax] 10 mg PO HS PRN 02/11/23 02/11/24 History Albuterol Sulfate [Ventolin HFA] 1 - 2 puff INHALATION RT-Q6H PRN 11/01/23 02/11/24 History Ammonium Lactate Cream [Lac-Hydrin 1 applic TOPICAL BID 11/01/23 02/11/24 History 12% Cream] Pimecrolimus 1 applic TOPICAL BID 11/01/23 02/11/24 History metroNIDAZOLE 0.75% CREAM 1 applic TOPICAL BID 11/01/23 02/11/24 History [Metrocream 0.75%] traMADol HCl [Ultram] 50 mg PO Q6H PRN 11/01/23 02/11/24 History Aspirin 81 mg PO QAM 02/11/24 02/11/24 History Fish Oil/Mag(Unknown Dose) 1 cap PO QAM 02/11/24 02/11/24 History Omeprazole [PriLOSEC] 40 mg PO QAM 02/11/24 02/11/24 History Allergies Allergy/AdvReac Type Severity Reaction Status Date / Time celecoxib [From Celebrex] Allergy Rash/Hives Verified 02/11/24 10:31 Iodinated Contrast Media Allergy Anaphylaxis Verified 02/11/24 10:31 [Iodinated Contrast Media - IV Dye] iodine Allergy Anaphylaxis Verified 02/11/24 10:31 nystatin Allergy Rash/Hives, Verified 02/11/24 10:31 Swelling, Difficulty breathing Penicillins Allergy Anaphylaxis Verified 02/11/24 10:31 Sulfa (Sulfonamide Allergy See comment Verified 02/11/24 10:31 Antibiotics) triamcinolone Allergy Rash/Hives Verified 02/11/24 10:31 fentanyl AdvReac Severe SEVERE Verified 02/11/24 10:31 MIGRAINES adhesive AdvReac tears skin Verified 02/11/24 10:31 chocolate flavor AdvReac TRIGGERS Verified 02/11/24 10:31 MIGRAINE duloxetine [From Cymbalta] AdvReac Headaches Verified 02/11/24 10:31 gabapentin AdvReac Triggers Verified 02/11/24 10:31 migraines Opioids - Morphine Analogues AdvReac Migraine Verified 02/11/24 10:31 Opioids-Meperidine and AdvReac Migraine Verified 02/11/24 10:31 Related peanut AdvReac TRIGGERS Verified 02/11/24 10:31 MIGRAINES tree nut [Nut] AdvReac HEADACHE Verified 02/11/24 10:31 yellow dye AdvReac HEADACHE Verified 02/11/24 10:31
[2024-02-12 09:47] VITALS: RESP 16; TEMP 97.4
[2024-02-12] MEDS: IV FLUID CONTINUATION 1,000 ML IV ONE (09:50)
[2024-02-12] MEDS: LACTATED RINGERS 1,000 ML IV SCH (09:50)
[2024-02-12] MEDS: LIDOCAINE 1% (10MG/ML) FOR IV START INTRADERMA STA (09:50)
[2024-02-12] MEDS ORDERED: LIDOCAINE 1% INJ 10MG/ML (20 ML MDV) ONE (10:09)
[2024-02-12] MEDS ORDERED: PROPOFOL 10 MG/ML 20 ML VIAL IV ONE (10:09)
--- NOTE | 2024-02-12 10:50 | P.PCN ---
Date of Procedure: 02/12/24 Description of Procedure: PREOPERATIVE DIAGNOSIS: History of colon polyps History of sigmoid colectomy Colonoscopy screening. POSTOPERATIVE DIAGNOSIS: Colonoscopy screening. Diverticulosis, scattered. OPERATION: Colonoscopy to the cecum, ileocecal valve and appendiceal orifice. SURGEON: Bonnie Padilla MD. ANESTHESIA: MAC. INDICATIONS: The patient is a 78-year-old male who presents for colonoscopy screening. He has history of polyps. Last colonoscopy 5 years. Benefits and risks were described and informed consent was obtained. DESCRIPTION OF PROCEDURE: The patient had undergone GoLytely prep. The patient had been brought into the operating room and laid in the left lateral decubitus position. After adequate intravenous sedation, the rectum was examined with 2% lidocaine jelly. No external hemorrhoids were encountered. The rectal tone was within normal limits. No lesions were palpated in the rectal vault. An Olympus colonoscope was advanced until the cecum, ileocecal valve and appendiceal orifice were clearly viewed. The prep was fair. Scattered diverticulosis was encountered including colorectal anastomosis at 20 cm from the anal verge. No colonic polyps were found. No evidence of focal colitis was found. Retroflexion of the scope demonstrated grade 1 internal hemorrhoids without active bleeding or inflammation. The colon was desufflated. The patient had tolerated the procedure well. Withdrawal time was over 6 minutes. FINDINGS: Aronchick preparation quality scale 2 (1-5) Internal hemorrhoids, grade 1 No external prolapsed hemorrhoids. No arteriovenous malformations. No adenomatous polyps. No focal colitis. Colorectal anastomosis at 20 cm from the anal verge, patent Highly redundant colon. RECOMMENDATIONS: Lower endoscopy in 5 years, 2028 due to high risk colon polyp history Plan - Discharge Summary Discharge Rx Participant: No New Discharge Prescriptions: Continue Albuterol Nebulized [Ventolin Nebulized] 2.5 mg INHALATION QAM Ammonium Lactate Cream [Lac-Hydrin 12% Cream] 1 applic TOPICAL BID Albuterol Sulfate [Ventolin HFA] 1 - 2 puff INHALATION RT-Q6H PRN PRN Reason: Shortness Of Breath traMADol HCl [Ultram] 50 mg PO Q6H PRN PRN Reason: Pain Nitroglycerin Sl Tabs [Nitrostat] 0.4 mg SL Q5M PRN PRN Reason: Chest Pain Fluticasone/Umeclidin/Vilanter [Trelegy Ellipta 200-62.5-25] 1 puff INHALATION RT-DAILY hydrOXYzine HCL [Atarax] 10 mg PO HS PRN PRN Reason: Itching metroNIDAZOLE 0.75% CREAM [Metrocream 0.75%] 1 applic TOPICAL BID Pimecrolimus 1 applic TOPICAL BID Omeprazole [PriLOSEC] 40 mg PO QAM Aspirin 81 mg PO QAM Fish Oil/Mag(Unknown Dose) 1 cap PO QAM Discharge Medication List Albuterol Nebulized [Ventolin Nebulized] 2.5 mg INHALATION QAM 08/16/21 [History] Nitroglycerin Sl Tabs [Nitrostat] 0.4 mg SL Q5M PRN 08/16/21 [History] Fluticasone/Umeclidin/Vilanter [Trelegy Ellipta 200-62.5-25] 1 puff INHALATION RT-DAILY 03/20/22 [History] hydrOXYzine HCL [Atarax] 10 mg PO HS PRN 02/11/23 [History] Albuterol Sulfate [Ventolin HFA] 1 - 2 puff INHALATION RT-Q6H PRN 11/01/23 [History] Ammonium Lactate Cream [Lac-Hydrin 12% Cream] 1 applic TOPICAL BID 11/01/23 [History] Pimecrolimus 1 applic TOPICAL BID 11/01/23 [History] metroNIDAZOLE 0.75% CREAM [Metrocream 0.75%] 1 applic TOPICAL BID 11/01/23 [History] traMADol HCl [Ultram] 50 mg PO Q6H PRN 11/01/23 [History] Aspirin 81 mg PO QAM 02/11/24 [History] Fish Oil/Mag(Unknown Dose) 1 cap PO QAM 02/11/24 [History] Omeprazole [PriLOSEC] 40 mg PO QAM 02/11/24 [History] Follow up Appointment(s)/Referral(s): Bonnie Padilla MD [STAFF PHYSICIAN] - As Needed Patient Instructions/Handouts: Diverticulosis (DC), Diverticulosis Diet (GEN) Activity/Diet/Wound Care/Special Instructions: Repeat colonoscopy in 5 years, 2028 Discharge Disposition: HOME SELF-CARE
[2024-02-12 11:13] VITALS: BP 125/82; PULSE 73
== END 2024-02-12 11:56 | disposition home or self-care (01) ==
LOC: ORWHC2ENDO 08:42
PROVIDERS: ATTEND Surgery Plastic and Reconstructive Surgery
DX: Z12.11 Encounter for screening for malignant neoplasm of colon (principal); K57.30 Diverticulosis of large intestine without perforation or abscess without bleeding; K64.1 Second degree hemorrhoids; J44.9 Chronic obstructive pulmonary disease, unspecified; I25.2 Old myocardial infarction; I20.9 Angina pectoris, unspecified; K21.9 Gastro-esophageal reflux disease without esophagitis; M19.90 Unspecified osteoarthritis, unspecified site; Z85.47 Personal history of malignant neoplasm of testis; Z86.69 Personal history of other diseases of the nervous system and sense organs; Z86.0100 Personal history of colon polyps, unspecified; Z85.51 Personal history of malignant neoplasm of bladder; Z87.19 Personal history of other diseases of the digestive system; Z86.16 Personal history of COVID-19; Z90.79 Acquired absence of other genital organ(s); Z90.89 Acquired absence of other organs; Z87.891 Personal history of nicotine dependence; Z83.3 Family history of diabetes mellitus; Z90.49 Acquired absence of other specified parts of digestive tract; Z80.3 Family history of malignant neoplasm of breast; Z91.041 Radiographic dye allergy status; Z88.8 Allergy status to other drugs, medicaments and biological substances; Z88.6 Allergy status to analgesic agent; Z88.1 Allergy status to other antibiotic agents; Z88.0 Allergy status to penicillin; Z88.2 Allergy status to sulfonamides; Z88.5 Allergy status to narcotic agent; Z79.82 Long term (current) use of aspirin; Z79.899 Other long term (current) drug therapy
CPT/HCPCS: J2003; J2704; G0121; 43248; 45378

== ENCOUNTER → 2024-05-05 | Outpatient (CLI) | payer MEDICARE ==
--- NOTE | 2024-05-05 14:41 | XR ---
EXAMINATION TYPE: XR foot complete LT DATE OF EXAM: 05/05/2024 CLINICAL INDICATION: Male, 78 years old with history of M79.672, M20.22, M19.072, L03.032, pain TECHNIQUE: Frontal, lateral, and oblique images of the left foot are obtained. COMPARISON: None FINDINGS: There is no acute fracture/dislocation evident in the left foot. There is hallux valgus de formity first metatarsophalangeal joint with mild to moderate joint space narrowing at this level. Th ere is some flexion and varus positioning of the distal third through fifth toes. Overlying soft tiss ue is unremarkable. IMPRESSION: As above. [facility], , 05/05/2024 2:38 PM
== END | disposition home or self-care (01) ==
LOC: RADXRMAIN 14:17
PROVIDERS: ATTEND Podiatrist Primary Podiatric Medicine
DX: M19.072 Primary osteoarthritis, left ankle and foot (principal); M20.22 Hallux rigidus, left foot; L03.032 Cellulitis of left toe

== ENCOUNTER 2024-05-27 06:03 | Day surgery (SDC) | payer MEDICARE ==
[2024-05-25 12:01] VITALS: BMI 19.6
[~2024-05-27 06:03] MED LIST changes: +DEXAMETHASONE SOD PHOSPHATE 4 MG/ML 1 ML VIAL IV ONE; +LACTATED RINGERS 1,000 ML IV SCH; -LIDOCAINE 1% (10MG/ML) FOR IV START INTRADERMA PRN; +ONDANSETRON 4 MG/2 ML VIAL IVP ONE
[2024-05-27] MEDS: IV FLUID CONTINUATION 1,000 ML IV ONE (06:58)
[2024-05-27] MEDS ORDERED: HYDROmorphone 0.5 MG/0.5 ML SYRINGE IVP PRN (07:00)
[2024-05-27] MEDS ORDERED: MIDAZOLAM 2 MG/2 ML VIAL IV PRN (07:00)
[2024-05-27 07:07] VITALS: TEMP 96.9
[2024-05-27] MEDS ORDERED: LIDOCAINE 2% (PF) 20 MG/ML 5 ML VIAL ONE (07:30)
[2024-05-27] MEDS ORDERED: PROPOFOL 10 MG/ML 20 ML VIAL IV ONE (07:30)
--- NOTE | 2024-05-27 07:46 | P.GSHP ---
History of Present Illness H&P Date: 05/27/24 CHIEF COMPLAINT: Dysphagia HISTORY OF PRESENT ILLNESS: The patient is a 78-year-old male who presents reports chronic dysphagia. Upper endoscopy was offered for further evaluation and management. PAST MEDICAL HISTORY: Please see list. PAST SURGICAL HISTORY: Please see list. MEDICATIONS: Please see list. ALLERGIES: Please see list. SOCIAL HISTORY: No illicit drug use FAMILY HISTORY: No reports of Crohn disease or ulcerative colitis. REVIEW OF ORGAN SYSTEMS: CONSTITUTIONAL: No reports of fevers or chills. GI: Denies any blood in stools or constipation. PHYSICAL EXAM: VITAL SIGNS: Stable GENERAL: Well-developed and pleasant in no acute distress. HEENT: No scleral icterus. Extraocular movements grossly intact. Moist buccal mucosa. NECK: Supple without lymphadenopathy. CHEST: Unlabored respirations. Equal bilateral excursions. CARDIOVASCULAR: Regular rate and rhythm. Distal 2+ pulses. ABDOMEN: Soft, nondistended. MUSCULOSKELETAL: No clubbing, cyanosis, or edema. ASSESSMENT: 1. Dysphagia PLAN: 1. Recommend proceeding with an upper endoscopy with dilation Past Medical History Past Medical History: Cancer, Chest Pain / Angina, COPD, Hearing Disorder / Deafness, Osteoarthritis (OA) Additional Past Medical History / Comment(s): Difficulty swallowing. Hx bladder cancer 15 yrs ago, hx right testicular cancer - surgery & radiation 20+ yrs ago, occassional migraines, hx gastritis, ulcer, hx Diego's palsy 30 yrs ago - 95% cleared up, hx sigmoid stricture, O2 2L per [place] @ prn and at [facility]. "Broken Heart Syndrome". "Hx Covid, was on meds for 6 months, had cardiac cath and no issues since. Encapsulated prostate - being watched. Hard of hearing. Last Myocardial Infarction Date:: 05/25/14 History of Any Multi-Drug Resistant Organisms: MRSA Date of last positivie culture/infection: unknown, greater than 10 years ago MDRO Source:: skin infection at back stimulator insertion site Past Surgical History: Adenoidectomy, Appendectomy, Back Surgery, Bowel Resection, Cholecystectomy, Heart Catheterization, Hernia Repair, Orthopedic Surgery, Tonsillectomy Additional Past Surgical History / Comment(s): Multiple EGD's, colonoscopy, cardiac cathetrization X2, several back surgeries including laminectomy, spinous process removed T11 and T12/cage/arturo, bilateral arthroscopic knee surgeries, bilateral thumb surgeries with right titanium joint, left rotator cuff repair, several nasal polypectomies, pain procedures - RFA cervical/back, bilateral in guinal hernia repairs, right orchiectomy, diaphragmatic hernia repair, section of sigmoid colon removed, back stimulator insertion and removal, R hand surgery. Past Anesthesia/Blood Transfusion Reactions: No Reported Reaction Additional Past Anesthesia/Blood Transfusion Reaction / Comment(s): No hx of blood tranfusion Smoking Status: Former smoker - Past Family History Father Family Medical History: Cancer Additional Family Medical History / Comment(s): Father of stomach cancer at the age of 65 yrs. Mother Family Medical History: No Reported History Additional Family Medical History / Comment(s): Mother of "old age". She was 83 yrs old. Brother(s) Family Medical History: Cancer, Diabetes Mellitus Additional Family Medical History / Comment(s): Brain tumor. Sister(s) Family Medical History: Cancer, Diabetes Mellitus Additional Family Medical History / Comment(s): Sisters breast cancer. Medications and Allergies Home Medications Medication Instructions Recorded Confirmed Type Albuterol Nebulized [Ventolin 2.5 mg INHALATION QID PRN 08/16/21 05/27/24 History Nebulized] Nitroglycerin Sl Tabs [Nitrostat] 0.4 mg SL Q5M PRN 08/16/21 05/27/24 History Fluticasone/Umeclidin/Vilanter 1 puff INHALATION RT-DAILY 03/20/22 05/27/24 History [Trelegy Ellipta 200-62.5-25] hydrOXYzine HCL [Atarax] 10 mg PO HS PRN 02/11/23 05/27/24 History Albuterol Sulfate [Ventolin HFA] 2 puff INHALATION RT-Q6H PRN 11/01/23 05/27/24 History Ammonium Lactate Cream [Lac-Hydrin 1 applic TOPICAL BID PRN 11/01/23 05/27/24 History 12% Cream] metroNIDAZOLE 0.75% CREAM 1 applic TOPICAL BID PRN 11/01/23 05/27/24 History [Metrocream 0.75%] traMADol HCl [Ultram] 50 mg PO Q6H PRN 11/01/23 05/27/24 History Aspirin 81 mg PO DAILY 02/11/24 05/27/24 History Omeprazole [PriLOSEC] 40 mg PO DAILY 02/11/24 05/27/24 History Magnesium Oxide [Mag-Ox] 400 mg PO DAILY 04/10/24 05/27/24 History Eglon-3/Dha/Epa/Fish Oil [Fish Oil 1 cap PO DAILY 04/10/24 05/27/24 History 1,000 mg Softgel] Sucralfate [Carafate] 1 gm PO BID #30 tablet 04/10/24 05/27/24 Rx Allergies Allergy/AdvReac Type Severity Reaction Status Date / Time celecoxib [From Celebrex] Allergy Rash/Hives Verified 05/27/24 07:00 Iodinated Contrast Media Allergy Anaphylaxis Verified 05/27/24 07:00 [Iodinated Contrast Media - IV Dye] iodine Allergy Anaphylaxis Verified 05/27/24 07:00 nystatin Allergy Rash/Hives, Verified 05/27/24 07:00 Swelling, Difficulty breathing Penicillins Allergy Anaphylaxis Verified 05/27/24 07:00 Sulfa (Sulfonamide Allergy See comment Verified 05/27/24 07:00 Antibiotics) triamcinolone Allergy Rash/Hives Verified 05/27/24 07:00 fentanyl AdvReac Severe SEVERE Verified 05/27/24 07:00 MIGRAINES adhesive AdvReac tears skin Verified 05/27/24 07:00 chocolate flavor AdvReac TRIGGERS Verified 05/27/24 07:00 MIGRAINE duloxetine [From Cymbalta] AdvReac Headaches Verified 05/27/24 07:00 gabapentin AdvReac Triggers Verified 05/27/24 07:00 migraines, caused an emotional outburst Opioids - Morphine Analogues AdvReac Migraine Verified 05/27/24 07:00 Opioids-Meperidine and AdvReac Migraine Verified 05/27/24 07:00 Related peanut AdvReac TRIGGERS Verified 05/27/24 07:00 MIGRAINES tree nut [Nut] AdvReac HEADACHE Verified 05/27/24 07:00 yellow dye AdvReac HEADACHE Verified 05/27/24 07:00 Surgical - Exam Vital Signs Temp Pulse Resp BP Pulse Ox 96.9 F L 78 16 154/78 92 L 05/27/24 07:03 05/27/24 07:03 05/27/24 07:03 05/27/24 07:03 05/27/24 07:03
--- NOTE | 2024-05-27 07:48 | P.PCN ---
Date of Procedure: 05/27/24 Description of Procedure: PREOPERATIVE DIAGNOSIS: Dysphagia. Presbyesophagus Esophageal stricture POSTOPERATIVE DIAGNOSIS: Esophageal dysmotility Dysphagia. Esophageal obstruction Presbyesophagus OPERATION: Esophagogastroduodenoscopy with rigid dilator over the guidewire 60 Fr. SURGEON: Bonnie Padilla MD ANESTHESIA: MAC. INDICATIONS: The patient is a 78-year-old male who presents with esophageal stricture and and dysphagia. Benefits and risks of the procedure were described. Informed consent was obtained. DESCRIPTION: The patient was brought into the endoscopy suite and laid in the left lateral decubitus position. After a timeout was confirmed, the procedure was initiated. An Olympus gastroscope was passed and the stomach was entered. Minimal chronic gastritis was identified. The scope was advanced to the duodenum which was unremarkable. Next using an Belarusian rigid dilator, a guidewire was placed through the pediatric gastroscope. Next the scope was withdrawn. A 60-Eritrean rigid Belarusian dilator was passed carefully along the posterior oropharynx to 40 cm and left in place for 2-3 minutes stretch. The dilator was withdrawn including the guidewire. The scope was reentered along the posterior oropharynx with no findings of full-thickness tear of the upper esophageal sphincter. No full-thickness injury was encountered. Mild bleeding found along the hiatus. The GI tract was desufflated. The patient tolerated the procedure well. FINDINGS: Squamocolumnar junction unremarkable at 38 cm. Belarusian rigid dilator 60-Eritrean completed. No recurrent hiatal hernia, with mild bleeding along the hiatus Hill grade 1 lower esophageal valve. LA grade A esophagitis. No acute gastritis RECOMMENDATIONS: Upper endoscopy with dilation as needed Plan - Discharge Summary Discharge Rx Participant: No New Discharge Prescriptions: Continue Albuterol Nebulized [Ventolin Nebulized] 2.5 mg INHALATION QID PRN PRN Reason: Shortness Of Breath Ammonium Lactate Cream [Lac-Hydrin 12% Cream] 1 applic TOPICAL BID PRN PRN Reason: Rash Albuterol Sulfate [Ventolin HFA] 2 puff INHALATION RT-Q6H PRN PRN Reason: Shortness Of Breath traMADol HCl [Ultram] 50 mg PO Q6H PRN PRN Reason: Pain Johnson-3/Dha/Epa/Fish Oil [Fish Oil 1,000 mg Softgel] 1 cap PO DAILY Magnesium Oxide [Mag-Ox] 400 mg PO DAILY Sucralfate [Carafate] 1 gm PO BID #30 tablet Nitroglycerin Sl Tabs [Nitrostat] 0.4 mg SL Q5M PRN PRN Reason: Chest Pain Fluticasone/Umeclidin/Vilanter [Trelegy Ellipta 200-62.5-25] 1 puff INHALATION RT-DAILY hydrOXYzine HCL [Atarax] 10 mg PO HS PRN PRN Reason: Itching metroNIDAZOLE 0.75% CREAM [Metrocream 0.75%] 1 applic TOPICAL BID PRN PRN Reason: eczema Omeprazole [PriLOSEC] 40 mg PO DAILY Aspirin 81 mg PO DAILY Discharge Medication List Albuterol Nebulized [Ventolin Nebulized] 2.5 mg INHALATION QID PRN 08/16/21 [History] Nitroglycerin Sl Tabs [Nitrostat] 0.4 mg SL Q5M PRN 08/16/21 [History] Fluticasone/Umeclidin/Vilanter [Trelegy Ellipta 200-62.5-25] 1 puff INHALATION RT-DAILY 03/20/22 [History] hydrOXYzine HCL [Atarax] 10 mg PO HS PRN 02/11/23 [History] Albuterol Sulfate [Ventolin HFA] 2 puff INHALATION RT-Q6H PRN 11/01/23 [History] Ammonium Lactate Cream [Lac-Hydrin 12% Cream] 1 applic TOPICAL BID PRN 11/01/23 [History] metroNIDAZOLE 0.75% CREAM [Metrocream 0.75%] 1 applic TOPICAL BID PRN 11/01/23 [History] traMADol HCl [Ultram] 50 mg PO Q6H PRN 11/01/23 [History] Aspirin 81 mg PO DAILY 02/11/24 [History] Omeprazole [PriLOSEC] 40 mg PO DAILY 02/11/24 [History] Magnesium Oxide [Mag-Ox] 400 mg PO DAILY 04/10/24 [History] Johnson-3/Dha/Epa/Fish Oil [Fish Oil 1,000 mg Softgel] 1 cap PO DAILY 04/10/24 [History] Sucralfate [Carafate] 1 gm PO BID #30 tablet 04/10/24 [Rx] Follow up Appointment(s)/Referral(s): Bonnie Padilla MD [STAFF PHYSICIAN] - As Needed Patient Instructions/Handouts: *Surgery [facility] - (Anesthesia) Discharge Instructions Outpatient Surgery, Upper Endoscopy (DC), Esophageal Dilation (DC) Activity/Diet/Wound Care/Special Instructions: Salt water gargle twice a day for 2 days. Warm liquids prior to eating. Discharge Disposition: HOME SELF-CARE
[2024-05-27 07:51] VITALS: PULSE 67
[2024-05-27 08:13] VITALS: BP 123/78; RESP 18
== END 2024-05-27 08:56 | disposition home or self-care (01) ==
LOC: ORWHC2ENDO 06:03
PROVIDERS: ATTEND Surgery Plastic and Reconstructive Surgery
DX: K22.2 Esophageal obstruction (principal); K22.89 Other specified disease of esophagus; K22.4 Dyskinesia of esophagus; I25.2 Old myocardial infarction; Z87.891 Personal history of nicotine dependence; Z79.82 Long term (current) use of aspirin; Z88.0 Allergy status to penicillin; Z88.2 Allergy status to sulfonamides; Z88.1 Allergy status to other antibiotic agents; Z88.6 Allergy status to analgesic agent; Z88.5 Allergy status to narcotic agent; Z88.8 Allergy status to other drugs, medicaments and biological substances
CPT/HCPCS: 43248; J2704; J2003